=== PATIENT | male | born 1945 | race Caucasian/White ===

== ENCOUNTER 2018-10-23 15:51 | Inpatient (IN) | payer MEDICARE, OTHER, SELFPAY ==
[2018-10-23] VITALS (15 sets, daily range): BP systolic 100–118; BP diastolic 42–57; PULSE 60–79; RESP 17–22; TEMP 36.6–37.2; O2SAT 6–99; BMI 33.4
--- NOTE | 2018-10-23 16:17 | ECHOD_ITS ---
Reason For Study: NSTEMI Procedure This was a 2D Doppler, Color Flow transthoracic echocardiogram. Exam performed portable in patient room. Left Ventricle Mild concentric left ventricular hypertrophy. The estimated ejection fraction is 45-50 %. Stage 1 diastolic dysfunction. Infero-Basal: Mildly hypokinetic. Posterior-Basal: Mildly hypokinetic. Right Ventricle Normal size and thickness. ICD or pacer leads identified within the right ventricle. Normal systolic function. Atria Normal left atrium. Normal right atrium. Normal atrial septum. Mitral Valve The mitral valve is structurally normal. No prolapse or stenosis seen. Tricuspid Valve Normal tricuspid valve. Trivial tricuspid valve insufficiency. Right ventricular systolic pressure estimated to be 35 mmHg. Aortic Valve Trisinus/trileaflet aortic valve. Fusion of the right and left coronary cusps. Moderate diffuse aortic valve thickening. Moderate restriction of the aortic valve. Moderate aortic stenosis. Peak aortic valve gradient 40 mmHg. Mean aortic valve gradient 20 mmHg. Calculated aortic valve area (continuity equation) is 1.1 cm2. Trivial aortic valve insufficiency. Pulmonic Valve Normal pulmonic valve. Great Vessels Calcified aortic root. Normal arch. Normal inferior vena cava. Inferior vena cava collapse with sniff. Pericardium/Pleural No pericardial effusion. MMode/2D Measurements & Calculations LVIDd: 5.2 cm IVSd: 1.6 cm LVOT diam: 2.1 cm LVIDs: 4.1 cm LVPWd: 1.3 cm LVOT area: 3.3 cm2 FS: 20.5 % Ao root diam: 3.6 cm LAV(MOD-bp): 54.3 ml Aortic Valve Planimetry: 1.2 cm2 LAV(MOD-bp) Indexed: 25.0 ml/m2 LAV(MOD-sp2): 54.9 ml LAV(MOD-sp4): 53.1 ml LA A4 area: 18.5 cm2 Time Measurements MV dec time: 0.14 sec Doppler Measurements & Calculations MV E max flaquito: 95.4 cm/sec Lat Peak E' Flaquito: 9.7 cm/sec Med Peak E' Flaquito: 8.3 cm/sec MV A max flaquito: 100.2 cm/sec E/E' lat: 9.8 E/E' med: 11.5 MV E/A: 0.95 MV V2 max: 115.6 cm/sec MV P1/2t max flaquito: 97.3 cm/sec Ao V2 max: 314.9 cm/sec MV max P.3 mmHg MV P1/2t: 83.4 msec Ao max P.7 mmHg MV V2 mean: 64.6 cm/sec MV dec slope: 341.6 cm/sec2 Ao V2 mean: 208.2 cm/sec MV mean P.9 mmHg Ao mean P.3 mmHg MV V2 VTI: 29.6 cm MVA(P1/2t): 2.6 cm2 Ao V2 VTI: 69.1 cm MVA(VTI): 2.5 cm2 LULA(I,D): 1.1 cm2 LULA(V,D): 0.93 cm2 LV V1 max: 87.5 cm/sec SV(LVOT): 73.1 ml PA V2 max: 95.3 cm/sec LV V1 max P.1 mmHg LV V1 mean P.5 mmHg LV V1 mean: 55.5 cm/sec LV V1 VTI: 22.0 cm TR max flaquito: 273.0 cm/sec TR max P.8 mmHg Interpretation Summary Mild concentric left ventricular hypertrophy. The estimated ejection fraction is 45-50 %. Stage 1 diastolic dysfunction. Infero-Basal: Mildly hypokinetic Posterior-Basal: Mildly hypokinetic Trivial tricuspid valve insufficiency. Right ventricular systolic pressure estimated to be 35 mmHg. Fusion of the right and left coronary cusps Moderate to severe aortic stenosis, but may be underestimated due to reduced LV function. Calculated aortic valve area (continuity equation) is 1.1 cm2. Trivial aortic valve insufficiency. There is no comparison study available. Ordering Physician: Magno Sheppard Referring Physician: Terri Ponce Performed By: Diego Vilchis RCS
--- NOTE | 2018-10-23 16:27 | HP.PCM_ITS ---
Problem List (1) Acute respiratory failure with hypoxia Status: Acute (2) COPD exacerbation Status: Acute (3) Pneumonia, pneumococcal Status: Acute Qualifiers: Laterality: right Lung location: lower lobe of lung Qualified Code(s): J13 - Pneumonia due to Streptococcus pneumoniae (4) NSTEMI (non-ST elevated myocardial infarction) Status: Acute History of Present Illness Date of Admission: 10/23/18 Chief Complaint: shortness of breath The patient is a 73 year old M who has a history of chronic shortness of breath but became acutely more short of breath over the past few days. Presented to an outside emergency room and was diagnosed with pneumonia and sent home with antibiotics but was advised to be admitted. Patient declined stating he had things to do at home. Present today just worsening shortness of breath with pulse ox in the 70s. Patient was found to have an elevated troponin of 2.2. Patient had a CT angiogram of the chest that showed a right lower lobe infiltrate and he received ceftriaxone for that. Additionally, patient received aspirin, clopidogrel and a heparin drip in addition to aerosols. Patient was put on nonrebreather and BiPAP was attempted however the patient did not tolerate the BiPAP so patient was transferred to [facility] on nonrebreather. Patient supplement transitioned over to nasal cannula is tolerating that well. Patient denies any chest pain. [] Past Medical History Medical History: Medical History (Last Updated 10/23/18 @ 16:32 by Magno Sheppard DO) CAD (coronary artery disease) I25.10 DM2 (diabetes mellitus, type 2) E11.9 CKD (chronic kidney disease) stage 3, GFR 30-59 ml/min N18.3 COPD (chronic obstructive pulmonary disease) J44.9 Chronic respiratory failure J96.10 Allergies No Known Allergies Allergy (Verified 10/21/15 19:24) Home Medications: Ambulatory Orders Medication Instructions Recorded Albuterol Inhaler [Ventolin Hfa 2 puff INHALATION Q4H PRN PRN 06/05/16 (SP)] Aspirin [Lo-Dose Aspirin EC] 81 mg PO 06/05/16 Budesonide Inhaler 180 mcg 2 puff INHALATION BID 06/05/16 [Pulmicort Inhaler 180 mcg] Budesonide/Formoterol 160/4.5 2 puff INHALATION BID 06/05/16 [Symbicort 160/4.5 Mcg Inhaler (SP)] Cholecalciferol (VIT D3) [Vitamin 1,000 unit PO DAILY 06/05/16 D] Clopidogrel Bisulfate [Plavix] 75 mg PO DAILY 06/05/16 Fluticasone Prop 100 mcg [Flovent 1 puff INHALATION BID 06/05/16 Diskus 100 Mcg] Hydrochlorothiazide 25 mg PO 06/05/16 Insulin Aspart [Novolog] 12 unit SQ 06/05/16 Insulin Glargine [Lantus (BKC)] 68 units SC QHS 06/05/16 Lisinopril [Zestril] 5 mg PO 06/05/16 Magnesium Oxide 420 mg PO 06/05/16 Metoprolol Tartrate [Lopressor 25 mg PO BID 06/05/16 (Beta Suzanne)] Montelukast [Singulair] 10 mg PO DAILY 06/05/16 Rosuvastatin Calcium [Crestor] 40 mg PO QHS 06/05/16 Sodium Chloride 0.65% [[place] Nasal 06/05/16 [place]] Tiotropium [place] [Spiriva] 18 mcg IH 06/05/16 Surgical History: Surgical History (Last Updated 10/23/18 @ 16:33 by Magno Sheppard DO) Hx of cholecystectomy Z90.49 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 Denies: Anorexia, Fever, Night Sweats Eyes: Denies: Blurred vision, Double vision HEENT: Denies: Head Aches, Sinus Congestion, Sinus Drainage Cardiovascular: Denies: Chest Pain, Edema, Palpitations Respiratory: Reports: Cough, Shortness of Breath, Sputum production Gastrointestinal: Denies: Abdominal Pain, Nausea, Vomiting Genitourinary: Denies: Dysuria Musculoskeletal: Denies: Joint Pain, Joint Tenderness Skin: Denies: Rash, Wounds Neurological: Denies: Numbness, Tingling, Focal weakness Psychiatric: Denies: Anxiety, Depression Endocrine: Denies: Change in Body Habitus, Heat/ Cold Intolerance Hematologic/ Lymphatic: Denies: Easy Bruising, Easy Bleeding, Hx of blood clot Comment: A 10 point review of systems were negative except as mentioned in the history of present illness and the other review of systems. VTE Information - Inpt Only VTE Present on Admission: No VTE Mechan Device Prophylaxis: None VTE Pharm Prophylaxis ordered?: No Patient Problems: Active and Suspected Problems Acute respiratory failure with hypoxia (Acute) COPD exacerbation (Acute) Pneumonia, pneumococcal (Acute) NSTEMI (non-ST elevated myocardial infarction) (Acute) - Physical Exam General: Alert, Cooperative, No apparent distress, - - Respiratory distress. No conversational dyspnea. HEENT: Atraumatic, Normocephalic, - - no icterus Oral: No Gingival or Mucosal Lesions/ Ulcerations, Dry Mucosa Neck: No JVD, No Nodes, Thyroid Normal Size and Texture Lungs: Diminished, Wheezes - faint bilaterally Cardiovascular: Regular rate, Regular Rhythm, Normal S1, Normal S2, No murmurs Abdomen: Bowel Sounds Present, Soft, Non Tender, Non-Distended, Obese Extremities: No edema, No Calf Tenderness Skin: No rashes, No breakdown Musculoskeletal: No Tenderness to Palpation of Joints or Extremities, No Muscle Wasting Neurological: Muscle tone normal, - - no clonus Psych/Mental Status: Normal Affect, Appropriate Vital Signs Pulse 64 10/23/18 16:00 Weight: 102.6 kg Body Mass Index (BMI) 33.4 CBC: White count 10.2, hemoglobin 17.4, platelets 206 BMP: Sodium 135, potassium 4.7, creatinine 1.7 Lactic acid 20.8, range at outside hospital is 4.5-18 BNP is 349 Troponin of 2.26 EKG reviewed and showed normal sinus rhythm but no acute changes. Baseline artifact in the chest leads. CT chest for PE protocol: Showed right lower lobe and right middle lobe consolidations and left lung base infiltrates consistent with multifocal pneumonia Assessment/Plan All Active Problems Acute respiratory failure with hypoxia (Acute) COPD exacerbation (Acute) Pneumonia, pneumococcal (Acute) NSTEMI (non-ST elevated myocardial infarction) (Acute) 1. Acute hypoxic respiratory failure * Improved at this time though was present at the outside hospital * Secondary to acute exacerbation of COPD plus suspected pneumococcal pneumonia * Oxygen has been weaned down to nasal cannula and patient is tolerating that well. Patient does have a baseline oxygen 2 L/min 2. Acute exacerbation of COPD * Continue with bronchodilators as well as patient will be initiated on methylprednisolone 40 mg every 8 hours * Anticipate transition over to oral prednisone in the next 24 to 48 hours * Pulmonary on consultation 3. Suspected pneumococcal pneumonia * Patient received ceftriaxone at the outside hospital. We will continue ceftriaxone but also add azithromycin * Check urinary antigens for Streptococcus and Legionella. Check sputum culture * Pulmonary toilet 4. Non-ST elevation myocardial infarction * May be a type II event related with demand from his hypoxia * continue with aspirin and clopidogrel which patient did receive at the outside hospital\ * Continue with heparin drip as he was also initiated at the outside hospital * Check an echocardiogram * Continue to cycle troponins * Discussed with Dr. Ruiz: He will plan to see the patient on the . Possible left heart catheterization on the 5. Chronic kidney disease stage III * Suspected as we do not have any baseline labs to compare to. * Creatinine was 1.7 * I am good hold off on his HCTZ and lisinopril for now * I will give him a liter of IV fluids and reevaluate his labs in the morning 6. Diabetes mellitus type II * Continue with his basal and prandial insulin plus sliding scale * Check an A1c 7. VTE prophylaxis: Low risk as patient is already anticoagulated. 8. Advanced care planning: Confirmed the patient's if he want CPR intubation in the event of cardiopulmonary arrest. Patient states that he would want CPR and intubated, only short-term. Therefore, patient is full CODE STATUS. Code Visit Inpatient E&M: 89710 Init Hosp L3
--- NOTE | 2018-10-23 16:57 | NURSING ---
1650 report called to Brandee KIMBROUGH RN
[2018-10-23 17:01] LABS: Bedside Glucose 118 mg/dL (70-110)
[2018-10-23] MEDS: 0.9% Normal Saline 1,000 ML 150 ML IV (17:25)
[2018-10-23] MEDS: 0.9% NaCl Peripheral Flush Adult/Peds IV (18:03)
[2018-10-23] MEDS: Ceftriaxone 1 GM/50 ML BAG IV (18:40)
[2018-10-23] MEDS: Ipratropium/Albuterol Sulfate 3 ML AMPUL.NEB INHALATION ×2 (18:59→22:53)
[2018-10-23 19:00] LABS: International Normalized Ratio 1.1; Prothrombin Time (Protime)PT. 14.4 SECONDS (11.7-14.9)
[2018-10-23 19:01] LABS: Partial Thromboplast Time 35.6 Seconds (24.1-36.2)
[2018-10-23] MEDS: HEPARIN/D5w 25,000 UNITS 25,000 UNITS/250 ML IV.SOLN. 15 UNITS IV (19:40)
[2018-10-23] MEDS: Metoprolol Tartrate 25 MG Tablet PO (22:08)
[2018-10-23] MEDS: Atorvastatin Calcium 80 MG Tablet PO (22:08)
[2018-10-23 23:26] LABS: Bedside Glucose 215 mg/dL (70-110)
[2018-10-24] VITALS (16 sets, daily range): BP systolic 109–146; BP diastolic 45–74; PULSE 62–76; RESP 16–20; TEMP 36.4–37.3; O2SAT 92–96
[2018-10-24] MEDS: Ipratropium/Albuterol Sulfate 3 ML AMPUL.NEB INHALATION ×6 (02:19→23:04)
[2018-10-24 07:47] LABS: Absolute Neutrophil Count 14.3 X10^3/uL (2.0-7.7); Basophil# 0.03 X10^3/uL; Basophil% 0.2 % (0-1); Eosinophil# 0.14 X10^3/uL; Eosinophils% 0.9 % (0-5); Hematocrit 48.5 % (40-54); Hemoglobin 15.7 g/dL (13.0-16.5); Mean Corp Hgb Conc 32.4 g/dL (32-36); Mean Corpuscular Hgb 31.2 pg (27.0-32.0); Mean Corpuscular Volume 96.2 fL (80-94); Mean Platelet Vol. 9.2 fl (6.2-12.0); Monocyte# 0.52 X10^3/uL; Monocyte% 3.3 % (0-10); NRBC Flagged by Analyzer 0 % (0-5); Neutrophil # 14.31 X10^3/uL (2.7-7.7); Neutrophil % 89.8 % (47-70); POSITIVE MORPHOLOGY YES; Platelet Count 165 K/mm3 (150-450); RBC Distribution Width SD 49.3 fl (35.1-43.9); Red Blood Count 5.04 M/mm3 (4.6-6.2); White Blood Count 15.9 K/mm3 (4.4-11.0)
[2018-10-24 07:51] LABS: Differential Indicated SCAN CRITERIA MET
[2018-10-24 08:12] LABS: Anion Gap 4 (5-15); BUN 43 mg/dL (7-18); BUN/Creat Ratio 24.4 RATIO (10-20); Calcium,Total 7.8 mg/dL (8.5-10.1); Chloride 103 mmol/L (98-107); Creatinine, Serum 1.76 mg/dL (0.70-1.30); EST Glomerular Filtration Rate 40 mL/min (>60); Est Glom Filt Rate - Afr Amer 49 mL/min (>60); Estimated Creatinine Clearance 36.82 ml/min; Glucose 294 mg/dL (74-106); Potassium 5.3 mmol/L (3.5-5.1); Sodium Level 135 mmol/L (136-145)
--- NOTE | 2018-10-24 08:12 | CPS ---
PT DECREASED TO 4 LPM...90-91%. NURSE AWARE OF CHANGE
--- NOTE | 2018-10-24 08:13 | EKG12_ITS ---
Test Reason : POST PCI Blood Pressure : / mmHG Vent. Rate : 063 BPM Atrial Rate : 063 BPM P-R Int : 112 ms QRS Dur : 096 ms QT Int : 396 ms P-R-T Axes : 081 039 051 degrees QTc Int : 405 ms Normal sinus rhythm Normal ECG When compared with ECG of 24-OCT-2018 08:25, MANUAL COMPARISON REQUIRED, DATA IS UNCONFIRMED Confirmed by NOHEMI GUTIERRES, MARBIN ([id number]), editor city [place] ([id number]) on 11/06/2018 2:29:29 PM Referred By: Terri Ponce Confirmed By:MARBIN SONG MD
[2018-10-24 08:23] LABS: Hemoglobin A1c 7.2 % (4.2-6.3)
[2018-10-24 08:24] LABS: Differential Comment SCANNED
[2018-10-24] MEDS: Insulin Lispro 100 UNIT/ML INSULN.PEN 12 UNIT SC ×3 (08:32→17:14)
[2018-10-24 08:33] LABS: Partial Thromboplast Time 66.2 Seconds (24.1-36.2)
[2018-10-24] MEDS: Insulin Lispro 100 UNIT/ML INSULN.PEN SC ×3 (08:33→17:15)
[2018-10-24] MEDS: Aspirin E.C. 81 MG Tablet PO (08:34)
--- NOTE | 2018-10-24 08:36 | CON.PCM_ITS ---
Problem List (1) Congestive heart failure Status: Suspected Qualifiers: Heart failure type: combined systolic and diastolic Heart failure chronicity: acute on chronic Qualified Code(s): I50.43 - Acute on chronic combined systolic (congestive) and diastolic (congestive) heart failure (2) Acute respiratory failure with hypoxia Status: Acute (3) COPD exacerbation Status: Acute (4) NSTEMI (non-ST elevated myocardial infarction) Status: Acute Reason for Consult Date of Consultation: 10/24/18 Reason for Consultation: Hypoxic respiratory failure History of Present Illness: The patient is a 73 year old M, with past medical history listed below, who presented [facility] as a direct transfer from an outside facility secondary to hypoxic respiratory failure. Patient reports that he had had worsening shortness of breath over the last week, but on the day of presentation I thought I was going to . On presentation to outside facility, patient was noted to have saturations in the 70s and elevated troponin at 2.2. Patient did have a CT angio showing a right lower lobe infiltrate and patient was given ceftriaxone. Patient was also initiated on a heparin drip, Plavix and aspirin. Patient was placed on BiPAP therapy, but was unable to tolerate, so was transferred here on a nonrebreather. Patient reports significant improvement compared to yesterday. Patient reports that he has noted some lower extremity edema over the last week. Patient also reports a cough productive of frothy white to pink sputum over the last 24 to 48 hours. Patient states that has improved since she is been admitted. Patient denies any current chest pain. Patient has not had any palpitations and does not think I was shocked. Patient does have an extensive cardiac history [facility] Patient has had a CABG in the past along with a pacemaker defibrillator. Patient reports he supposed to be on 2 L nasal cannula at all times, but typically only uses it with sleep. Patient does report an extensive smoking history, but quit sometime ago. Patient is never had a pulmonary function test or walking oximetry that he is aware of. Patient is unable to describe his current respiratory medication routine. Past Medical History Medical History: Medical History (Last Updated 10/23/18 @ 16:32 by Magno Sheppard DO) CAD (coronary artery disease) I25.10 DM2 (diabetes mellitus, type 2) E11.9 CKD (chronic kidney disease) stage 3, GFR 30-59 ml/min N18.3 COPD (chronic obstructive pulmonary disease) J44.9 Chronic respiratory failure J96.10 Allergies No Known Allergies Allergy (Verified 10/21/15 19:24) Home Medications: Ambulatory Orders Medication Instructions Recorded Albuterol Inhaler [Ventolin Hfa 2 puff INHALATION Q4H PRN PRN 06/05/16 (SP)] Aspirin [Lo-Dose Aspirin EC] 81 mg PO DAILY 06/05/16 Budesonide Inhaler 180 mcg 2 puff INHALATION BID 06/05/16 [Pulmicort Inhaler 180 mcg] Cholecalciferol (VIT D3) [Vitamin 1,000 unit PO DAILY 06/05/16 D] Insulin Aspart [Novolog] See Protocol SQ ACHS 06/05/16 Insulin Glargine [Lantus (BKC)] 30 units SC QHS 06/05/16 Lisinopril [Zestril] 5 mg PO DAILY 06/05/16 Magnesium Oxide 420 mg PO 06/05/16 Metoprolol Tartrate [Lopressor 25 mg PO BID 06/05/16 (Beta Suzanne)] Montelukast [Singulair] 10 mg PO QHS 06/05/16 Rosuvastatin Calcium [Crestor] 40 mg PO QHS 06/05/16 Sodium Chloride 0.65% [[place] Nasal 2 sprays NARES 4X/DAY PRN PRN 06/05/16 [place]] Surgical History: Surgical History (Last Updated 10/23/18 @ 16:33 by Magno Sheppard DO) Hx of cholecystectomy Z90.49 S/P CABG x 5 Z95.1 1999 at the [place] Psychiatric History: No pertinent psych hx Lives: Spouse/ Significant Other Smoking Status: Former smoker - quit 12 years ago Tobacco Use: Non-smoker Alcohol: None Drugs: None - *Family History Maternal Family History: Family History (Last Updated 10/23/18 @ 16:33 by Magno Sheppard DO) Other COPD (chronic obstructive pulmonary disease) Review of Systems Constitutional: Reports: Weakness. Denies: Anorexia, Fever, Night Sweats Eyes: Denies: Blurred vision, Cataracts, Double vision, Drainage, Redness HEENT: Denies: Difficulty Hearing, Ear Pain, Nasal bleeding, Nasal Congestion, Post Nasal Drip Cardiovascular: Reports: Chest Tightness, Edema, Orthopnea. Denies: Light Headedness Respiratory: Reports: Cough, Shortness of breath at rest, - - [place]o frothy secretions with coughing. Denies: Hemoptysis, Pleuritic Pain Gastrointestinal: Denies: Abdominal Pain, Constipation, Diarrhea Genitourinary: Denies: Dysuria, Frequency, Hematuria Musculoskeletal: Denies: Joint stiffness, Joint swelling, Joint Tenderness Skin: Denies: Rash, Wounds Neurological: Denies: Confusion, Focal weakness, Numbness, Tingling Psychiatric: Denies: Anxiety, Depression Endocrine: Denies: Change in Body Habitus, Polydipsia Hematologic/ Lymphatic: Denies: Adenopathy, Easy Bruising Patient Problems: Active and Suspected Problems (Last Updated 10/23/18 @ 16:32 by Magno Sheppard DO) Acute respiratory failure with hypoxia (Acute) COPD exacerbation (Acute) Pneumonia, pneumococcal (Acute) NSTEMI (non-ST elevated myocardial infarction) (Acute) Congestive heart failure (Suspected) - Physical Exam General: Alert, Oriented x3, Cooperative, - - Mild conversational dyspnea. Obese. HEENT: Atraumatic, PERRLA, EOMI, Normocephalic, - - No scleral icterus or injection Oral: Moist Mucosa, No Gingival or Mucosal Lesions/ Ulcerations Neck: Supple, No Nodes, Trachea Midline, JVD, Right Lungs: No rhonchi, No wheeze, Diminished, Rales - Left base Cardiovascular: Regular rate, Regular Rhythm, Normal S1, Normal S2, No murmurs, No rub noted, No Gallop, - - Paced rhythm on telemetry Abdomen: Bowel Sounds Present, Soft, Non Tender, Non-Distended Extremities: No clubbing, No cyanosis, Edema - Trace lower extremity Skin: No rashes, No breakdown Musculoskeletal: No Tenderness to Palpation of Joints or Extremities Lymphatic: No Cervical, Supraclavicular, or Inguinal Adenopathy Neurological: Cranial nerves II-XII grossly intact, Neuro grossly intact, Motor Exam 5/5 strength throughout Psych/Mental Status: Alert and oriented to time, place, person, mood and affect Vital Signs Temp Pulse Resp BP Pulse Ox 37.2 C 67 16 125/62 H 93 10/24/18 05:00 10/24/18 07:14 10/24/18 07:14 10/24/18 05:00 10/24/18 07:14 Oxygen Flow Rate (L/min) 6 Oxygen Delivery Method Nasal Cannula Weight: 105.432 kg Body Mass Index (BMI) 33.4 Intake and Output for Last 24 Hours 10/22/18 10/23/18 10/24/18 23:59 23:59 23:59 Intake Total 1674.5 / 1674.5 362.5 / 362.5 Output Total 400 / 400 350 / 350 Balance 1274.5 / 1274.5 12.5 / 12.5 Microbiology Past 72 Hours 10/23/18 16:05 Streptococcus pneumoniae Antigen (M - Final Urine, Clean Catch 10/23/18 16:05 Legionella Antigen - Final Urine, Clean Catch Laboratory Tests Past 24 Hrs 10/23/18 10/23/18 10/23/18 17:52 18:40 20:25 WBC RBC Hgb Hct MCV MCH MCHC RDW Std Deviation RDW Coeff of Momo Plt Count MPV Immature Gran % (Auto) Neut % (Auto) Lymph % (Auto) [place] % (Auto) Eos % (Auto) Baso % (Auto) Absolute Neuts (auto) Absolute Lymphs (auto) Nucleated RBC % Differential Comment PT 14.4 INR 1.1 APTT 35.6 Sodium Potassium Chloride Carbon Dioxide Anion Gap BUN Creatinine Estim Creat Clear Calc Est GFR (MDRD) Af Amer Est GFR (MDRD) Non-Af BUN/Creatinine Ratio Glucose Hemoglobin A1c Calcium Troponin I 2.400 H* 1.960 H* 10/24/18 10/24/18 10/24/18 01:37 07:40 07:40 WBC 15.9 H RBC 5.04 Hgb 15.7 Hct 48.5 MCV 96.2 H MCH 31.2 MCHC 32.4 RDW Std Deviation 49.3 H RDW Coeff of Momo 14.0 Plt Count 165 MPV 9.2 Immature Gran % (Auto) 0.800 Neut % (Auto) 89.8 H Lymph % (Auto) 5.0 L [place] % (Auto) 3.3 Eos % (Auto) 0.9 Baso % (Auto) 0.2 Absolute Neuts (auto) 14.3 H Absolute Lymphs (auto) 0.80 L Nucleated RBC % 0 Differential Comment SCANNED PT INR APTT 58.0 H Sodium 135 L Potassium 5.3 H Chloride 103 Carbon Dioxide 28.0 Anion Gap 4 L BUN 43 H Creatinine 1.76 H Estim Creat Clear Calc 36.82 Est GFR (MDRD) Af Amer 49 L Est GFR (MDRD) Non-Af 40 L BUN/Creatinine Ratio 24.4 H Glucose 294 H Hemoglobin A1c Calcium 7.8 L Troponin I 10/24/18 10/24/18 07:40 07:40 WBC RBC Hgb Hct MCV MCH MCHC RDW Std Deviation RDW Coeff of Momo Plt Count MPV Immature Gran % (Auto) Neut % (Auto) Lymph % (Auto) [place] % (Auto) Eos % (Auto) Baso % (Auto) Absolute Neuts (auto) Absolute Lymphs (auto) Nucleated RBC % Differential Comment PT INR APTT Pending Sodium Potassium Chloride Carbon Dioxide Anion Gap BUN Creatinine Estim Creat Clear Calc Est GFR (MDRD) Af Amer Est GFR (MDRD) Non-Af BUN/Creatinine Ratio Glucose Hemoglobin A1c 7.2 H Calcium Troponin I POC Glucose 10/23/18 10/23/18 22:06 16:53 POC Glucose 215 H 118 H Assessment/Plan All Active Problems (Last Updated 10/23/18 @ 16:32 by Magno Sheppard DO) Acute respiratory failure with hypoxia (Acute) COPD exacerbation (Acute) Pneumonia, pneumococcal (Acute) NSTEMI (non-ST elevated myocardial infarction) (Acute) RECOMMENDATIONS: 1. Continue antibiotics, bronchodilators and steroid therapy 2. Consider gentle diuresis 3. Wean oxygen as tolerated 4. Await cardiology recommendations 5. Aggressive pulmonary toileting IMPRESSIONS: 1. Acute on chronic hypoxic respiratory failure Unclear etiology. Patient may have a component of cor pulmonale/CHF s econdary to noncompliance with supplemental oxygen at baseline. Patient does have an extensive smoking history in the right lower lobe infiltrate suggestive of an acute exacerbation of COPD secondary to community-acquired pneumonia. Patient does have an elevated leukocytosis at this time, but this may be secondary to demargination with steroid use. Unclear on patient's home medications. Patient appears to be on multiple inhaled corticosteroids of unclear intention. Patient is reporting some pink frothy sputum, which may be secondary to the CHF. Patient may benefit from a gentle diuresis. Agree with empiric antibiotics at this time. Patient will need to complete pulmonary function test and walking oximetry as an outpatient. 2. Non-ST elevation myocardial infarction Clinical suspicion for troponin secondary to prolonged hypoxemia more than an acute event. However, patient does have an extensive cardiac history and may have developed restenosis. Patient is currently on a heparin drip. Echocardiogram has been ordered. Troponins continue to improve. Cardiology to see the patient. 3. CKD stage III/diabetes mellitus type 2/obesity/advanced age Complicates care, management, recovery and prognosis. Will need to watch blood sugars closely given concomitant steroid therapy. Patient may benefit from evaluation of obstructive sleep apnea as an outpatient. Poor information on baseline creatinine at this time. Will attempt to clarify. Agree with holding KAREN inhibitor and hydrochlorothiazide acutely. Code Visit Inpatient E&M: 03056 Init Hosp L3
[2018-10-24 09:16] LABS: Bedside Glucose 304 mg/dL (70-110)
[2018-10-24] MEDS: Ceftriaxone 1 GM/50 ML BAG IV (10:30)
[2018-10-24] MEDS: Montelukast 10 MG Tablet PO (10:33)
[2018-10-24] MEDS: Clopidogrel Bisulfate 75 MG Tablet PO (10:34)
[2018-10-24] MEDS: Metoprolol Tartrate 25 MG Tablet PO ×2 (10:34→23:05)
[2018-10-24] MEDS: Magnesium Oxide 400 MG Tablet PO (10:36)
--- NOTE | 2018-10-24 10:44 | PCM.CONS.C ---
Problem List (1) NSTEMI (non-ST elevated myocardial infarction) Status: Acute (2) Congestive heart failure Status: Suspected Qualifiers: Heart failure type: combined systolic and diastolic Heart failure chronicity: acute on chronic Qualified Code(s): I50.43 - Acute on chronic combined systolic (congestive) and diastolic (congestive) heart failure Reason for Consult Date of Consultation: 10/24/18 History of Present Illness: The patient is a 73 year old M, former [place], with a history of hypertension, diabetes, hyperlipidemia, COPD on chronic O2 therapy at night, periodic inhalers, no pulmonary physician locally. In addition he has a history of tobacco abuse of approximately 2 packs/day for 20 years and quit around 14 years ago. Patient is also status post three-vessel [place] [facility] [place], with subsequent catheterizations and stents over the last 5 years, the specifics of which are difficult to interpret. He reports that he had stents in [place] and may be another catheterization after that but nothing here at [facility]. In addition the patient has ischemic cardiomyopathy status post defibrillator/AICD since 1998. Patient recently developed shortness of breath, dyspnea on exertion, productive cough and fevers and chills over the last several days. He sought medical attention at [facility], and was referred for admission however he declined and was sent home from the ER. One day later he returned to pulmonary and ER with worsening shortness of breath, fevers and substernal chest pain. He describes the pain as a pressure, midsternal, nonradiating. Patient was loaded with Plavix 3 mg x 1 followed by 75 mg a day, baby aspirin, and started on IV heparin drip. His EKG upon arrival to pulmonary and hospital showed normal sinus rhythm with a PAC, and old inferior wall myocardial infarction. No acute changes noted. His initial troponin at [facility] was 1.78 increased to 2.04. Patient was then transferred per his request to [facility] where he is remained asymptomatic. He received IV azithromycin and IV ceftriaxone and is feeling much better. Echocardiogram today demonstrated evidence of old inferior posterior wall myocardial infarction with an EF around 45% to 50%,, stage I diastolic dysfunction, and RVSP of approximately 35 mmHg. His troponins have decreased from 2.4 down to 1.9. [] Past Medical History Allergies/Adverse Reactions: Allergies No Known Allergies Allergy (Verified 10/21/15 19:24) Home Medications: Ambulatory Orders Medication Instructions Recorded Albuterol Inhaler [Ventolin Hfa 2 puff INHALATION Q4H PRN PRN 06/05/16 (SP)] Aspirin [Lo-Dose Aspirin EC] 81 mg PO DAILY 06/05/16 Budesonide Inhaler 180 mcg 2 puff INHALATION BID 06/05/16 [Pulmicort Inhaler 180 mcg] Cholecalciferol (VIT D3) [Vitamin 1,000 unit PO DAILY 06/05/16 D] Insulin Aspart [Novolog] See Protocol SQ ACHS 06/05/16 Insulin Glargine [Lantus (BKC)] 30 units SC QHS 06/05/16 Lisinopril [Zestril] 5 mg PO DAILY 06/05/16 Magnesium Oxide 420 mg PO 06/05/16 Metoprolol Tartrate [Lopressor 25 mg PO BID 06/05/16 (Beta Suzanne)] Montelukast [Singulair] 10 mg PO QHS 06/05/16 Rosuvastatin Calcium [Crestor] 40 mg PO QHS 06/05/16 Sodium Chloride 0.65% [[place] Nasal 2 sprays NARES 4X/DAY PRN PRN 06/05/16 [place]] Psychiatric History: No pertinent psych hx - *Family History Maternal Family History: Family History (Last Updated 10/23/18 @ 16:33 by Magno Sheppard DO) Other COPD (chronic obstructive pulmonary disease) Lives: Spouse/ Significant Other Smoking Status: Former smoker - quit 12 years ago Tobacco Use: Non-smoker Alcohol: None Drugs: None Review of Systems - Review of Systems General: Denies: Fever, Night Sweats, Fatigue Cardiovascular: Reports: Chest Discomfort, Chest Discomfort at Rest, Chest Pressure, Shortness of Breath at Rest. Denies: Shortness of Breath, Orthopnea, PND, Peripheral Edema, Palpitations, Lightheadedness, Dizziness, Near Syncope, Syncope Respiratory: Denies: Cough, Sputum Production, Hemoptysis Gastrointestinal: Denies: Hematemesis, Hematochezia, Melena Genitourinary: Denies: Dysuria, Hematuria Skin: Denies: Rash Subjectve: Patient sitting in a chair, no acute distress. Objective: Vital Signs Temp Pulse Resp BP Pulse Ox 97.8 F 74 18 135/65 H 95 10/24/18 10:28 10/24/18 10:34 10/24/18 10:28 10/24/18 10:28 10/24/18 10:28 Oxygen Flow Rate (L/min) 4 Oxygen Delivery Method Nasal Cannula Weight: 232 lb 7 oz Body Mass Index (BMI) 33.4 Intake and Output for Last 24 Hours 10/22/18 10/23/18 10/24/18 23:59 23:59 23:59 Intake Total 1674.5 / 1674.5 494.25 / 494.25 Output Total 400 / 400 350 / 350 Balance 1274.5 / 1274.5 144.25 / 144.25 General: Awake, Alert, Oriented x 3 HEENT: PERRL, EOMI, Sclera Non Icteric Neck: Supple, Good ROM, No Lymph Node Enlargement Lungs: Rales - Santiago Bases Cardiovascular: Regular Rhythm, Normal S1, Normal S2, No Murmurs, No Rubs, No Gallops Vascular: No Carotid Bruits, Normal Femoral Pulses, Normal Radial Pulses, Normal Dorsalis Pedal Pulse, Normal Posterior Tibial Pulses Abdomen: Bowel Sounds Present, Soft, Non Tender, No HSM, No Organomegaly Extremities: No Cyanosis, No Clubbing, No edema Neurological: No Focal Motor or Sensory Deficit 10/23/18 17:52: Troponin I 2.400 H* 10/23/18 18:40: PT 14.4, INR 1.1, APTT 35.6 10/23/18 20:25: Troponin I 1.960 H* 10/24/18 01:37: APTT 58.0 H 10/24/18 07:40: WBC 15.9 H, RBC 5.04, Hgb 15.7, Hct 48.5, MCV 96.2 H, MCH 31.2, MCHC 32.4, Plt Count 165, MPV 9.2, Immature Gran % (Auto) 0.800, Neut % (Auto) 89.8 H, Lymph % (Auto) 5.0 L, Moca % (Auto) 3.3, Eos % (Auto) 0.9, Baso % (Auto) 0.2, Absolute Neuts (auto) 14.3 H, Nucleated RBC % 0 10/24/18 07:40: Sodium 135 L, Potassium 5.3 H, Chloride 103, Carbon Dioxide 28.0, Anion Gap 4 L, BUN 43 H, Creatinine 1.76 H, Est GFR (MDRD) Af Amer 49 L, Est GFR (MDRD) Non-Af 40 L, BUN/Creatinine Ratio 24.4 H, Glucose 294 H, Calcium 7.8 L 10/24/18 07:40: Hemoglobin A1c 7.2 H 10/24/18 07:40: APTT 66.2 H Rhythm: EKG: As above ECHO: As above Stress Test: Cardiac Cath: Pending PCI: CT Surgery: Holter monitor: EPS: PPM: CXR: Chest CT Scan: Assessment/Plan 1. Coronary artery disease: The patient is status post three-vessel bypass surgery at [facility] [place] [place], with subsequent catheterizations both at [facility] as well as [facility]. He reportedly has had stents placed in the [facility] with subsequent catheterizations at [facility]. I recommend the patient continue baby aspirin, Plavix 75 mg a day, and IV heparin given his chronic renal insufficiency. If he has no further chest pain or pressure overnight, we can discontinue his heparin drip tomorrow. In addition I recommend we obtain the old records from [facility] with respect to his previous bypass surgery, previous stenting if any, and possible records from [place]. I recommended the patient undergo a repeat left her catheterization and graft angiography once his pulmonary situation has stabilized. He appears to have guarded a significant benefit from IV antibiotic therapy. Pulmonary consultation obtained and appreciated. In addition I recommend he continue his metoprolol and lisinopril for antihypertensive control. 2. Hyperlipidemia: Recommend obtaining a fasting lipid profile. Continue Crestor. 3. Thank you very much for the opportunity to participate in the cardiac care of your patient. Consultation time took place between 9 AM and 9:30 AM. Code Visit Inpatient E&M: 90156 Init Hosp L2
[2018-10-24 11:26] LABS: Bedside Glucose 404 mg/dL (70-110)
[2018-10-24] MEDS: HEPARIN/D5w 25,000 UNITS 25,000 UNITS/250 ML IV.SOLN. 15 UNITS IV (12:04)
[2018-10-24 13:44] LABS: Partial Thromboplast Time 63.1 Seconds (24.1-36.2)
[2018-10-24] MEDS: 0.9% NaCl Peripheral Flush Adult/Peds IV ×3 (14:23→23:06)
[2018-10-24] MEDS: Sodium Chloride 0.65% 1 SPRAY SPRAY.BTL NASAL (14:45)
[2018-10-24 16:31] LABS: Bedside Glucose 330 mg/dL (70-110)
--- NOTE | 2018-10-24 17:04 | CM.UR ---
Addendum entered by Millie Penaloza 10/24/18 17:36: No documentation noted that [facility] however [facility] said [facility] called and there was no bed available--he preferred transfer to [facility]. Left vm on Madeline's ext as the 2 main extension were not getting a response. One --just on hold for a long time and 2nd just rang without answer. Faxed clinical to at this time. Marva Penaloza RN, CCM. Original Note: RN CM Assessment Met face to face with patient. Introduced role of RN CM to patient. Patient is alert and able to participate in RN CM Assessment. Sitting up in chair during assessment. Care providers, pharmacy, and demographics verified. Significant other and 2 friends at bedside. Presentation: sob with exertion. Admit Dx: Resp failure and elevated troponin. Direct admission from [facility]. PCP: Dr. Jones at [facility] Specialists: Cardiology at [facility] (Cathleen Santizo NP) [place] Pharmacy[place] and [facility]: [facility] --no copays LNOK: Emily Muñoz, Significant other. LW/HPOA: None. Booklet given. Instructed how can be done here or can be done at [facility] clinic. Living Arrangements: Lives with girlfriend in a 2 story home. Railing to second floor. 3 steps to get in. Denies accessibility issues. ADL?s: Independent. Transportation: Drives self. DME: o2 at night, bled into cpap. States some complaints about cpap. Instructed to contact [facility] regarding that. DME co: [place] HHC: None SNF: None Goal: Return home. DC PLAN: Return home. Alerting [facility] about some medical equipment needs. Agreeable to their Home based primary care for assessment of home environment. Faxed clinical w/request to [facility]. Marva Penaloza RN, CCM.
--- NOTE | 2018-10-24 17:51 | PN_ITS ---
Patient Problems: Active and Suspected Problems (Last Updated 10/23/18 @ 16:32 by Magno Sheppard DO) Acute respiratory failure with hypoxia (Acute) COPD exacerbation (Acute) Pneumonia, pneumococcal (Acute) NSTEMI (non-ST elevated myocardial infarction) (Acute) Congestive heart failure (Suspected) Subjective: Was seen and examined today, I talked briefly with cardiology about his care. Patient has a past history of coronary artery disease-he states he had a stress test within the last couple of years but he does not know exactly when, he states his stress test was negative. Patient was admitted yesterday for acute on chronic hypoxic respiratory failure and possible community-acquired pneumonia. He was also found to have a non-ST elevation AK. Patient is currently on nasal cannula oxygen, he has no complaints of any chest pain, fevers, or chills. - Physical Exam General: Alert, Oriented x3, Cooperative, No apparent distress, Well developed HEENT: Atraumatic, PERRLA, EOMI, Normocephalic Oral: Moist Mucosa Neck: Supple, Trachea Midline, Thyroid Normal Size and Texture Lungs: Clear to auscultation, No rhonchi, No wheeze, Diminished Cardiovascular: Regular rate, Regular Rhythm, Normal S1, Normal S2, No murmurs Abdomen: Bowel Sounds Present, Soft, Non Tender, Non-Distended Extremities: No clubbing, No cyanosis, Capillary Refill Less than 3 Seconds Skin: No rashes, No breakdown Musculoskeletal: No Tenderness to Palpation of Joints or Extremities Neurological: Cranial nerves II-XII grossly intact, Neuro grossly intact, Sensory exam intact to light touch and pain Psych/Mental Status: Normal Affect, Appropriate, Alert and oriented to time, place, person, mood and affect Vital Signs Temp Pulse Resp BP Pulse Ox 97.8 F 71 18 125/58 H 96 10/24/18 16:18 10/24/18 16:18 10/24/18 16:18 10/24/18 16:18 10/24/18 16:18 Oxygen Flow Rate (L/min) 3 Oxygen Delivery Method Nasal Cannula Weight: 105.432 kg Body Mass Index (BMI) 33.4 Intake and Output for Last 24 Hours 10/22/18 10/23/18 10/24/18 23:59 23:59 23:59 Intake Total 1674.5 / 1674.5 1463.50 / 1463.50 Output Total 400 / 400 350 / 350 Balance 1274.5 / 1274.5 1113.50 / 1113.50 Microbiology Past 72 Hours 10/23/18 19:50 Gram Stain - Final Sputum, Expectorated/Coughed Respiratory Culture - Preliminary Appears to be normal respiratory justina. Further studies to follow. 10/23/18 16:05 Streptococcus pneumoniae Antigen (M - Final Urine, Clean Catch 10/23/18 16:05 Legionella Antigen - Final Urine, Clean Catch Laboratory Tests Past 24 Hrs 10/23/18 10/23/18 10/23/18 17:52 18:40 20:25 WBC RBC Hgb Hct MCV MCH MCHC RDW Std Deviation RDW Coeff of Momo Plt Count MPV Immature Gran % (Auto) Neut % (Auto) Lymph % (Auto) Henderson % (Auto) Eos % (Auto) Baso % (Auto) Absolute Neuts (auto) Absolute Lymphs (auto) Nucleated RBC % Differential Comment PT 14.4 INR 1.1 APTT 35.6 Sodium Potassium Chloride Carbon Dioxide Anion Gap BUN Creatinine Estim Creat Clear Calc Est GFR (MDRD) Af Amer Est GFR (MDRD) Non-Af BUN/Creatinine Ratio Glucose Hemoglobin A1c Calcium Troponin I 2.400 H* 1.960 H* 10/24/18 10/24/18 10/24/18 01:37 07:40 07:40 WBC 15.9 H RBC 5.04 Hgb 15.7 Hct 48.5 MCV 96.2 H MCH 31.2 MCHC 32.4 RDW Std Deviation 49.3 H RDW Coeff of Momo 14.0 Plt Count 165 MPV 9.2 Immature Gran % (Auto) 0.800 Neut % (Auto) 89.8 H Lymph % (Auto) 5.0 L Henderson % (Auto) 3.3 Eos % (Auto) 0.9 Baso % (Auto) 0.2 Absolute Neuts (auto) 14.3 H Absolute Lymphs (auto) 0.80 L Nucleated RBC % 0 Differential Comment SCANNED PT INR APTT 58.0 H Sodium 135 L Potassium 5.3 H Chloride 103 Carbon Dioxide 28.0 Anion Gap 4 L BUN 43 H Creatinine 1.76 H Estim Creat Clear Calc 36.82 Est GFR (MDRD) Af Amer 49 L Est GFR (MDRD) Non-Af 40 L BUN/Creatinine Ratio 24.4 H Glucose 294 H Hemoglobin A1c Calcium 7.8 L Troponin I 10/24/18 10/24/18 10/24/18 07:40 07:40 13:30 WBC RBC Hgb Hct MCV MCH MCHC RDW Std Deviation RDW Coeff of Momo Plt Count MPV Immature Gran % (Auto) Neut % (Auto) Lymph % (Auto) Henderson % (Auto) Eos % (Auto) Baso % (Auto) Absolute Neuts (auto) Absolute Lymphs (auto) Nucleated RBC % Differential Comment PT INR APTT 66.2 H 63.1 H Sodium Potassium Chloride Carbon Dioxide Anion Gap BUN Creatinine Estim Creat Clear Calc Est GFR (MDRD) Af Amer Est GFR (MDRD) Non-Af BUN/Creatinine Ratio Glucose Hemoglobin A1c 7.2 H Calcium Troponin I POC Glucose 10/24/18 10/24/18 10/24/18 16:21 11:18 08:26 POC Glucose 330 H 404 H 304 H 10/23/18 22:06 POC Glucose 215 H Medical Necessity - Tobacco Use Smoking Status: Former smoker - quit 12 years ago Tobacco Use: Non-smoker Assessment/Plan All Active Problems (Last Updated 10/23/18 @ 16:32 by Magno Sheppard DO) Acute respiratory failure with hypoxia (Acute) COPD exacerbation (Acute) Pneumonia, pneumococcal (Acute) NSTEMI (non-ST elevated myocardial infarction) (Acute) #1 acute on chronic hypoxic respiratory failure-patient is currently on 5 L via nasal cannula at the time my examination, pulmonary medicine is participating in his care #2 right lower lobe community-acquired pneumonia-continue present antibiotic coverage #3 acute [id number] is currently on a heparin drip, cardiology is participating in his care, it is planned that he has a cardiac catheterization during this admission #4 type 2 diabetes-continue present insulin coverage #5 chronic kidney disease stage III secondary to type 2 diabetes #6 acute exacerbation of COPD Code Visit Inpatient E&M: 41692 Subs Hosp L2
--- NOTE | 2018-10-24 21:45 | NURSING ---
Notified Radha MuñozAirport Location Manager that ptt came back critical high as she was concerned that it would be tainted d/t drawing above iv site where heparin was infusing. Radha currently looking for alternative staff to draw pt d/t challenging draw.
[2018-10-24] MEDS: Atorvastatin Calcium 80 MG Tablet PO (23:04)
[2018-10-24] MEDS: MELATONIN 3 MG TABLET PO (23:06)
[2018-10-24 23:46] LABS: Bedside Glucose 403 mg/dL (70-110)
[2018-10-25] VITALS (17 sets, daily range): BP systolic 123–147; BP diastolic 52–68; PULSE 58–79; RESP 16–20; TEMP 36.3–36.6; O2SAT 92–97
[2018-10-25 00:21] LABS: Partial Thromboplast Time 63.5 Seconds (24.1-36.2)
[2018-10-25] MEDS: Insulin Lispro 100 UNIT/ML INSULN.PEN SC ×5 (01:19→21:40)
[2018-10-25 01:26] LABS: Bedside Glucose 400 mg/dL (70-110)
[2018-10-25] MEDS: HEPARIN/D5w 25,000 UNITS 25,000 UNITS/250 ML IV.SOLN. 15 UNITS IV (03:39)
[2018-10-25] MEDS: Ipratropium/Albuterol Sulfate 3 ML AMPUL.NEB INHALATION ×6 (03:50→23:35)
--- NOTE | 2018-10-25 05:15 | RAD_ITS ---
STUDY: X-RAY CHEST REASON FOR EXAM: Male, 73 years old. Acute respiratory failure and elevated troponin. Shortness of breath TECHNIQUE: Single AP portable view of the chest. COMPARISON: None. FINDINGS: There is a multilead permanent pacemaker. There are superimposed monitor leads. There is opacification in the lung bases with shallow inspiratory level and compression of parenchyma, probable atelectasis in the right base. There are areas of hyperinflation. Mild vascular prominence. There is no demonstrated pleural abnormality. Sternal cerclage wires and vascular clips are present from a prior sternotomy and coronary artery bypass graft procedure (CABG). Normal mediastinum and marissa. Normal visualized pulmonary arteries. There is atherosclerotic calcification of the aortic arch with tortuosity. There is demineralization of the osseous structures. There is degenerative osteoarthritis of the bilateral shoulders. There is no demonstrated abnormality of the visualized soft tissue structures of the upper abdomen. RAD/Chest 1 View (Portable) IMPRESSION: Interstitial lung disease with areas of hyperinflation, compression of basilar parenchyma slightly more pronounced right compared to the left base. If there is clinical concern for pneumonia, follow-up examination right base is recommended. Mild vascular prominence could be chronic in nature. Postsurgical changes, atherosclerosis, osteoporosis felt to be nonacute findings. Electronically Signed: Maddison Apodaca MD at 6:16 EDT , Service support ,
[2018-10-25] MEDS: 0.9% NaCl Peripheral Flush Adult/Peds IV ×3 (05:48→21:41)
[2018-10-25 05:56] LABS: Absolute Lymphocyte Count 0.48 X10^3/uL (0.83-4.51); Absolute Neutrophil Count 12.6 X10^3/uL (2.0-7.7); Basophil# 0.01 X10^3/uL; Basophil% 0.1 % (0-1); Hematocrit 46.2 % (40-54); Lymphocyte # 0.48 X10^3/ul (4.0); Lymphocyte % 3.5 % (19-41); Mean Corp Hgb Conc 32.5 g/dL (32-36); Mean Corpuscular Hgb 30.6 pg (27.0-32.0); Mean Corpuscular Volume 94.3 fL (80-94); Mean Platelet Vol. 9.8 fl (6.2-12.0); Monocyte# 0.55 X10^3/uL; NRBC Flagged by Analyzer 0 % (0-5); Neutrophil # 12.64 X10^3/uL (2.7-7.7); Neutrophil % 91.5 % (47-70); POSITIVE DIFFERENTIAL YES; POSITIVE MORPHOLOGY YES; Platelet Count 174 K/mm3 (150-450); RBC Distribution Width CV 13.6 % (11.6-14.6); RBC Distribution Width SD 47.1 fl (35.1-43.9); White Blood Count 13.8 K/mm3 (4.4-11.0)
[2018-10-25 06:06] LABS: Partial Thromboplast Time 68.3 Seconds (24.1-36.2)
[2018-10-25 06:09] LABS: Differential Indicated SCAN CRITERIA MET
[2018-10-25 06:16] LABS: Anion Gap 7 (5-15); BUN 50 mg/dL (7-18); BUN/Creat Ratio 30.9 RATIO (10-20); Calcium,Total 8.2 mg/dL (8.5-10.1); Chloride 101 mmol/L (98-107); Creatinine, Serum 1.62 mg/dL (0.70-1.30); EST Glomerular Filtration Rate 45 mL/min (>60); Est Glom Filt Rate - Afr Amer 54 mL/min (>60); Estimated Creatinine Clearance 40.01 ml/min; Glucose 383 mg/dL (74-106); Potassium 5.3 mmol/L (3.5-5.1); Sodium Level 135 mmol/L (136-145)
[2018-10-25 06:24] LABS: Differential Comment SCANNED
--- NOTE | 2018-10-25 07:43 | PN_ITS ---
Patient Problems: Active and Suspected Problems (Last Updated 10/23/18 @ 16:32 by Magno Sheppard DO) Acute respiratory failure with hypoxia (Acute) COPD exacerbation (Acute) Pneumonia, pneumococcal (Acute) NSTEMI (non-ST elevated myocardial infarction) (Acute) Congestive heart failure (Suspected) Subjective: Patient reports subjective improvement compared to previous. Patient denies any current chest pain. Patient has been coughing, but reports minimal production. Patient has not had any bleeding complications. Oxygenation has improved, but patient is still reporting some dyspnea on exertion. - Physical Exam General: Alert, Oriented x3, Cooperative, No apparent distress, Well developed, Well nourished, - - No conversational dyspnea. HEENT: Atraumatic, PERRLA, EOMI, Normocephalic, - - No scleral icterus or injection noted Oral: Moist Mucosa, No Gingival or Mucosal Lesions/ Ulcerations Neck: Supple, No JVD, No Nodes, Trachea Midline Lungs: No wheeze, No rales, Diminished, Rhonchi - Right base, - - Symmetric expansion. No dullness to percussion. Cardiovascular: Regular rate, Regular Rhythm, Normal S1, Normal S2, Murmur - Grade 2 out of 6 systolic ejection murmur at the left sternal border, No rub noted, No Gallop Abdomen: Bowel Sounds Present, Soft, Non Tender, Non-Distended, Obese Extremities: No cyanosis, Capillary Refill Less than 3 Seconds, Edema Skin: No rashes, No breakdown Musculoskeletal: No Tenderness to Palpation of Joints or Extremities Lymphatic: No Cervical, Supraclavicular, or Inguinal Adenopathy Neurological: Cranial nerves II-XII grossly intact, Neuro grossly intact, Motor Exam 5/5 strength throughout Psych/Mental Status: Alert and oriented to time, place, person, mood and affect Vital Signs Temp Pulse Resp BP Pulse Ox 36.4 C L 66 18 123/62 H 94 10/25/18 04:02 10/25/18 07:30 10/25/18 04:02 10/25/18 04:02 10/25/18 04:02 Oxygen Flow Rate (L/min) 3 Oxygen Delivery Method Nasal Cannula Weight: 104.5 kg Body Mass Index (BMI) 33.4 Intake and Output for Last 24 Hours 10/23/18 10/24/18 10/25/18 23:59 23:59 23:59 Intake Total 1674.5 / 1674.5 2261.50 / 2261.50 101.50 / 101.50 Output Total 400 / 400 1350 / 1350 575 / 575 Balance 1274.5 / 1274.5 911.50 / 911.50 -473.50 / -473.50 Microbiology Past 72 Hours 10/23/18 19:50 Gram Stain - Final Sputum, Expectorated/Coughed Respiratory Culture - Preliminary Appears to be normal respiratory justina. Further studies to follow. 10/23/18 16:05 Streptococcus pneumoniae Antigen (M - Final Urine, Clean Catch 10/23/18 16:05 Legionella Antigen - Final Urine, Clean Catch Laboratory Tests Past 24 Hrs 10/24/18 10/24/18 10/24/18 07:40 07:40 07:40 WBC 15.9 H RBC 5.04 Hgb 15.7 Hct 48.5 MCV 96.2 H MCH 31.2 MCHC 32.4 RDW Std Deviation 49.3 H RDW Coeff of Momo 14.0 Plt Count 165 MPV 9.2 Immature Gran % (Auto) 0.800 Neut % (Auto) 89.8 H Lymph % (Auto) 5.0 L [place] % (Auto) 3.3 Eos % (Auto) 0.9 Baso % (Auto) 0.2 Absolute Neuts (auto) 14.3 H Absolute Lymphs (auto) 0.80 L Nucleated RBC % 0 Differential Comment SCANNED APTT Sodium 135 L Potassium 5.3 H Chloride 103 Carbon Dioxide 28.0 Anion Gap 4 L BUN 43 H Creatinine 1.76 H Estim Creat Clear Calc 36.82 Est GFR (MDRD) Af Amer 49 L Est GFR (MDRD) Non-Af 40 L BUN/Creatinine Ratio 24.4 H Glucose 294 H Hemoglobin A1c 7.2 H Calcium 7.8 L 10/24/18 10/24/18 10/24/18 07:40 13:30 20:45 WBC RBC Hgb Hct MCV MCH MCHC RDW Std Deviation RDW Coeff of Momo Plt Count MPV Immature Gran % (Auto) Neut % (Auto) Lymph % (Auto) [place] % (Auto) Eos % (Auto) Baso % (Auto) Absolute Neuts (auto) Absolute Lymphs (auto) Nucleated RBC % Differential Comment APTT 66.2 H 63.1 H Cancelled Sodium Potassium Chloride Carbon Dioxide Anion Gap BUN Creatinine Estim Creat Clear Calc Est GFR (MDRD) Af Amer Est GFR (MDRD) Non-Af BUN/Creatinine Ratio Glucose Hemoglobin A1c Calcium 10/24/18 10/25/18 10/25/18 23:58 05:03 05:03 WBC 13.8 H RBC 4.90 Hgb 15.0 Hct 46.2 MCV 94.3 H MCH 30.6 MCHC 32.5 RDW Std Deviation 47.1 H RDW Coeff of Momo 13.6 Plt Count 174 MPV 9.8 Immature Gran % (Auto) 0.900 Neut % (Auto) 91.5 H Lymph % (Auto) 3.5 L [place] % (Auto) 4.0 Eos % (Auto) 0.0 Baso % (Auto) 0.1 Absolute Neuts (auto) 12.6 H Absolute Lymphs (auto) 0.48 L Nucleated RBC % 0 Differential Comment SCANNED APTT 63.5 H Sodium 135 L Potassium 5.3 H Chloride 101 Carbon Dioxide 27.0 Anion Gap 7 BUN 50 H Creatinine 1.62 H Estim Creat Clear Calc 40.01 Est GFR (MDRD) Af Amer 54 L Est GFR (MDRD) Non-Af 45 L BUN/Creatinine Ratio 30.9 H Glucose 383 H Hemoglobin A1c Calcium 8.2 L 10/25/18 05:03 WBC RBC Hgb Hct MCV MCH MCHC RDW Std Deviation RDW Coeff of Momo Plt Count MPV Immature Gran % (Auto) Neut % (Auto) Lymph % (Auto) [place] % (Auto) Eos % (Auto) Baso % (Auto) Absolute Neuts (auto) Absolute Lymphs (auto) Nucleated RBC % Differential Comment APTT 68.3 H Sodium Potassium Chloride Carbon Dioxide Anion Gap BUN Creatinine Estim Creat Clear Calc Est GFR (MDRD) Af Amer Est GFR (MDRD) Non-Af BUN/Creatinine Ratio Glucose Hemoglobin A1c Calcium POC Glucose 10/25/18 10/24/18 10/24/18 01:16 23:01 16:21 POC Glucose 400 H 403 H 330 H 10/24/18 10/24/18 11:18 08:26 POC Glucose 404 H 304 H Clinical Impression(s) from Imaging Studies Chest X-Ray 10/25/18 05:15 IMPRESSION: Interstitial lung disease with areas of hyperinflation, compression of basilar parenchyma slightly more pronounced right compared to the left base. If there is clinical concern for pneumonia, follow-up examination right base is recommended. Mild vascular prominence could be chronic in nature. Postsurgical changes, atherosclerosis, osteoporosis felt to be nonacute findings. Electronically Signed: Maddison Apodaca MD at 6:16 EDT , Service support , Medical Necessity - Tobacco Use Smoking Status: Former smoker - quit 12 years ago Tobacco Use: Non-smoker Assessment/Plan All Active Problems (Last Updated 10/23/18 @ 16:32 by Magno Sheppard DO) Acute respiratory failure with hypoxia (Acute) COPD exacerbation (Acute) Pneumonia, pneumococcal (Acute) NSTEMI (non-ST elevated myocardial infarction) (Acute) RECOMMENDATIONS: 1. Continue antibiotics, bronchodilators. Wean steroids 2. Increase activity as tolerated 3. Wean oxygen as tolerated 4. Await cardiology recommendations 5. Aggressive pulmonary toileting IMPRESSIONS: 1. Acute on chronic hypoxic respiratory failure Likely multifactorial etiology. Patient may have a component of cor pulmonale/CHF secondary to noncompliance with supplemental oxygen at baseline. Patient does have an extensive smoking history in the right lower lobe infiltrate suggestive of an acute exacerbation of COPD secondary to community- acquired pneumonia. Patient does have an elevated leukocytosis at this time, but this may be secondary to demargination with steroid use. Unclear on patient's home medications. Patient appears to be on multiple inhaled corticosteroids of unclear intention. Patient was reporting some pink frothy sputum initially, which may be secondary to the CHF/cor pulmonale from probable prolonged hypoxemia. Patient's respiratory status has improved with just supporting oxygenation. Likely okay to hold on any diuresis. Agree with empiric antibiotics at this time. Patient will need to complete pulmonary function test and walking oximetry as an outpatient. 2. Non-ST elevation myocardial infarction Clinical suspicion for troponin secondary to prolonged hypoxemia more than an acute event. However, patient does have an extensive cardiac history and may have developed restenosis. Patient is currently on a heparin drip. Echocardiogram has been ordered. Troponins continue to improve. Cardiology to see the patient. 3. CKD stage III/diabetes mellitus type 2/obesity/advanced age Complicates care, management, recovery and prognosis. Will need to watch blood sugars closely given concomitant steroid therapy. Patient may benefit from evaluation of obstructive sleep apnea as an outpatient. Poor information on baseline creatinine at this time. Will attempt to clarify. Agree with holding KAREN inhibitor and hydrochlorothiazide acutely. Code Visit Inpatient E&M: 01955 Subs Hosp L2
[2018-10-25] MEDS: Aspirin E.C. 81 MG Tablet PO (07:49)
[2018-10-25] MEDS: Insulin Lispro 100 UNIT/ML INSULN.PEN 12 UNIT SC (07:49)
[2018-10-25 08:16] LABS: Bedside Glucose 386 mg/dL (70-110)
[2018-10-25] MEDS: Magnesium Oxide 400 MG Tablet PO (09:15)
[2018-10-25] MEDS: Metoprolol Tartrate 25 MG Tablet PO ×2 (09:15→21:40)
[2018-10-25] MEDS: Clopidogrel Bisulfate 75 MG Tablet PO (09:15)
[2018-10-25] MEDS: Ceftriaxone 1 GM/50 ML BAG IV (09:15)
[2018-10-25] MEDS: Montelukast 10 MG Tablet PO (09:15)
--- NOTE | 2018-10-25 10:14 | PCM.PN.CARD ---
Subjectve: Patient doing much better this morning from a respiratory standpoint. No shortness of breath, no chest pain, no angina. Telemetry showed normal sinus rhythm, no ventricular ectopy. Objective: Vital Signs Temp Pulse Resp BP Pulse Ox 97.8 F 72 18 125/52 H 92 10/25/18 09:12 10/25/18 09:15 10/25/18 09:12 10/25/18 09:12 10/25/18 09:12 Oxygen Flow Rate (L/min) 3 Oxygen Delivery Method Nasal Cannula Weight: 230 lb 6.129 oz Body Mass Index (BMI) 33.4 Intake and Output for Last 24 Hours 10/23/18 10/24/18 10/25/18 23:59 23:59 23:59 Intake Total 1674.5 / 1674.5 2261.50 / 2261.50 141.00 / 141.00 Output Total 400 / 400 1350 / 1350 575 / 575 Balance 1274.5 / 1274.5 911.50 / 911.50 -434.00 / -434.00 General: Awake, Alert, Oriented x 3 HEENT: PERRL, EOMI, Sclera Non Icteric Neck: Supple, Good ROM, No Lymph Node Enlargement Lungs: Clear to auscultation Cardiovascular: Regular Rhythm, Normal S1, Normal S2, No Murmurs, No Rubs, No Gallops Vascular: No Carotid Bruits, Normal Femoral Pulses, Normal Radial Pulses, Normal Dorsalis Pedal Pulse, Normal Posterior Tibial Pulses Abdomen: Bowel Sounds Present, Soft, Non Tender, No HSM, No Organomegaly Extremities: No Cyanosis, No Clubbing, No edema Neurological: No Focal Motor or Sensory Deficit 10/24/18 13:30: APTT 63.1 H 10/24/18 20:45: APTT Cancelled 10/24/18 23:58: APTT 63.5 H 10/25/18 05:03: WBC 13.8 H, RBC 4.90, Hgb 15.0, Hct 46.2, MCV 94.3 H, MCH 30.6, MCHC 32.5, Plt Count 174, MPV 9.8, Immature Gran % (Auto) 0.900, Neut % (Auto) 91.5 H, Lymph % (Auto) 3.5 L, [place] % (Auto) 4.0, Eos % (Auto) 0.0, Baso % (Auto) 0.1, Absolute Neuts (auto) 12.6 H, Nucleated RBC % 0 10/25/18 05:03: Sodium 135 L, Potassium 5.3 H, Chloride 101, Carbon Dioxide 27.0, Anion Gap 7, BUN 50 H, Creatinine 1.62 H, Est GFR (MDRD) Af Amer 54 L, Est GFR (MDRD) Non-Af 45 L, BUN/Creatinine Ratio 30.9 H, Glucose 383 H, Calcium 8.2 L 10/25/18 05:03: APTT 68.3 H Rhythm: EKG: ECHO: Stress Test: Cardiac Cath: PCI: CT Surgery: Holter monitor: EPS: PPM: CXR: Chest CT Scan: Medical Necessity - Tobacco Use Smoking Status: Former smoker - quit 12 years ago Tobacco Use: Non-smoker Assessment/Plan 1. Coronary artery disease: The patient is status post three-vessel bypass surgery at [facility] in 1998, with subsequent catheterizations both at [facility] as well as an [facility]. He reportedly has had stents placed in the [facility] with subsequent catheterizations at [facility]. I recommend the patient continue baby aspirin, Plavix 75 mg a day, and we could discontinue his IV heparin as he has been chest pain-free for 48 hours, and his troponins are trending downwards. I have reviewed the records from the [facility] and apparently the patient had three-vessel bypass surgery with a SINGH to the LAD, a saphenous vein graft to the RCA, and a saphenous vein graft to the posterior lateral branch of the left circumflex. In addition in 2005 he underwent drug-eluting Taxus stent to the RCA at an outside hospital in the [facility]. His most recent echocardiogram was in July 2018 which demonstrated intact LV function which is different than his LV function obtained on the echocardiogram from this admission. His echocardiogram from 10/24/2018 is as follows: Interpretation Summary Mild concentric left ventricular hypertrophy. The estimated ejection fraction is 45-50 %. Stage 1 diastolic dysfunction. Infero-Basal: Mildly hypokinetic Posterior-Basal: Mildly hypokinetic Trivial tricuspid valve insufficiency. Right ventricular systolic pressure estimated to be 35 mmHg. Fusion of the right and left coronary cusps Moderate to severe aortic stenosis, but may be underestimated due to reduced LV function. Calculated aortic valve area (continuity equation) is 1.1 cm2. Trivial aortic valve insufficiency. There is no comparison study available. Given his coronary artery disease and bypass surgery and now with his LV dysfunction, I recommend that he continue his baby aspirin, Plavix, metoprolol, and that we start Cozaar 25 mg p.o. daily. I recommended the patient undergo a repeat left heart catheterization and graft angiography 10/26/2018 how that his pulmonary situation has stabilized. 2. Hyperlipidemia: Recommend obtaining a fasting lipid profile. Continue Crestor. 3. Thank you very much for the opportunity to participate in the cardiac care of your patient. Plan for left heart catheterization tomorrow morning. Code Visit Inpatient E&M: 53873 Subs Hosp L2
[2018-10-25 10:45] LABS: Cholesterol 157 mg/dL (200); High Density Lipoprotein 45 mg/dL; Triglycerides 141 mg/dL; Very Low Density Lipoprotein 28 mg/dL (5-40)
[2018-10-25 11:30] LABS: Bedside Glucose > 500 mg/dL (70-110)
[2018-10-25] MEDS: Insulin Lispro 100 UNIT/ML INSULN.PEN 18 UNIT SC ×2 (11:58→17:00)
[2018-10-25 16:45] LABS: Bedside Glucose 366 mg/dL (70-110)
--- NOTE | 2018-10-25 17:12 | PCM.PROGNOTE ---
Patient Problems: Active and Suspected Problems (Last Updated 10/23/18 @ 16:32 by Magno Sheppard DO) Acute respiratory failure with hypoxia (Acute) COPD exacerbation (Acute) Pneumonia, pneumococcal (Acute) NSTEMI (non-ST elevated myocardial infarction) (Acute) Congestive heart failure (Suspected) Subjective: Patient was seen and examined today, I talked briefly with cardiology and critical care about his care. Critical care does not feel the patient had septic shock or sepsis, patient's lactic acid level at [facility] was highly elevated-this may have been due to respiratory issues. Patient's creatinine is somewhat improved today, he is currently on 3 L of oxygen via nasal cannula. Patient's blood sugars have been very elevated today possibly in part due to his IV steroids. I have adjusted his insulin dosage upward. - Physical Exam General: Alert, Oriented x3, Cooperative, No apparent distress, Well developed HEENT: Atraumatic, PERRLA, EOMI, Normocephalic Oral: Moist Mucosa Neck: Supple, No JVD, Trachea Midline, Thyroid Normal Size and Texture Lungs: Normal air movement, No rhonchi, No rales, Wheezes - Expiratory wheezes are scattered over both lungs Cardiovascular: Regular rate, Regular Rhythm, Normal S1, Normal S2, No murmurs Abdomen: Bowel Sounds Present, Soft, Non Tender, Non-Distended Extremities: No clubbing, No cyanosis, No edema, Capillary Refill Less than 3 Seconds Skin: No rashes, No breakdown Musculoskeletal: No Tenderness to Palpation of Joints or Extremities Neurological: Cranial nerves II-XII grossly intact, Neuro grossly intact, Sensory exam intact to light touch and pain, Coordination normal Psych/Mental Status: Normal Affect, Appropriate, Alert and oriented to time, place, person, mood and affect Vital Signs Temp Pulse Resp BP Pulse Ox 97.7 F L 66 16 147/68 H 96 10/25/18 15:29 10/25/18 15:43 10/25/18 15:43 10/25/18 15:29 10/25/18 15:29 Oxygen Flow Rate (L/min) 3 Oxygen Delivery Method Nasal Cannula Weight: 104.5 kg Body Mass Index (BMI) 33.4 Intake and Output for Last 24 Hours 10/23/18 10/24/18 10/25/18 23:59 23:59 23:59 Intake Total 1674.5 / 1674.5 2261.50 / 2261.50 1546.00 / 1546.00 Output Total 400 / 400 1350 / 1350 1900 / 1900 Balance 1274.5 / 1274.5 911.50 / 911.50 -354.00 / -354.00 Microbiology Past 72 Hours 10/23/18 19:50 Gram Stain - Final Sputum, Expectorated/Coughed Respiratory Culture - Preliminary Appears to be normal respiratory justina. Further studies to follow. 10/23/18 16:05 Streptococcus pneumoniae Antigen (M - Final Urine, Clean Catch 10/23/18 16:05 Legionella Antigen - Final Urine, Clean Catch Laboratory Tests Past 24 Hrs 10/24/18 10/24/18 10/25/18 20:45 23:58 05:03 WBC 13.8 H RBC 4.90 Hgb 15.0 Hct 46.2 MCV 94.3 H MCH 30.6 MCHC 32.5 RDW Std Deviation 47.1 H RDW Coeff of Momo 13.6 Plt Count 174 MPV 9.8 Immature Gran % (Auto) 0.900 Neut % (Auto) 91.5 H Lymph % (Auto) 3.5 L [place] % (Auto) 4.0 Eos % (Auto) 0.0 Baso % (Auto) 0.1 Absolute Neuts (auto) 12.6 H Absolute Lymphs (auto) 0.48 L Nucleated RBC % 0 Differential Comment SCANNED APTT Cancelled 63.5 H Sodium Potassium Chloride Carbon Dioxide Anion Gap BUN Creatinine Estim Creat Clear Calc Est GFR (MDRD) Af Amer Est GFR (MDRD) Non-Af BUN/Creatinine Ratio Glucose Calcium Triglycerides Cholesterol LDL Cholesterol VLDL Cholesterol HDL Cholesterol 10/25/18 10/25/18 10/25/18 05:03 05:03 05:03 WBC RBC Hgb Hct MCV MCH MCHC RDW Std Deviation RDW Coeff of Momo Plt Count MPV Immature Gran % (Auto) Neut % (Auto) Lymph % (Auto) [place] % (Auto) Eos % (Auto) Baso % (Auto) Absolute Neuts (auto) Absolute Lymphs (auto) Nucleated RBC % Differential Comment APTT 68.3 H Sodium 135 L Potassium 5.3 H Chloride 101 Carbon Dioxide 27.0 Anion Gap 7 BUN 50 H Creatinine 1.62 H Estim Creat Clear Calc 40.01 Est GFR (MDRD) Af Amer 54 L Est GFR (MDRD) Non-Af 45 L BUN/Creatinine Ratio 30.9 H Glucose 383 H Calcium 8.2 L Triglycerides 141 Cholesterol 157 LDL Cholesterol 84 VLDL Cholesterol 28 HDL Cholesterol 45 POC Glucose 10/25/18 10/25/18 10/25/18 16:31 11:20 07:45 POC Glucose 366 H > 500 H* 386 H 10/25/18 10/24/18 01:16 23:01 POC Glucose 400 H 403 H Medical Necessity - Tobacco Use Smoking Status: Former smoker - quit 12 years ago Tobacco Use: Non-smoker Assessment/Plan All Active Problems (Last Updated 10/23/18 @ 16:32 by Magno Sheppard DO) Acute respiratory failure with hypoxia (Acute) COPD exacerbation (Acute) Pneumonia, pneumococcal (Acute) NSTEMI (non-ST elevated myocardial infarction) (Acute) #1 acute on chronic hypoxic respiratory failure-patient is currently on 3 L via nasal cannula at the time my examination, pulmonary medicine is participating in his care #2 right lower lobe community-acquired pneumonia-continue present antibiotic coverage, I do not believe the patient has severe sepsis or septic shock #3 acute cue-[id number] is currently on a heparin drip, cardiology is participating in his care, it is planned that he has a cardiac catheterization tomorrow #4 type 2 diabetes-continue to adjust present insulin coverage #5 chronic kidney disease stage III secondary to type 2 diabetes #6 acute exacerbation of COPD #7 history of ventricular tachycardia-patient has an ICD which was placed years ago Code Visit Inpatient E&M: 03972 Subs Hosp L2
[2018-10-25] MEDS: Atorvastatin Calcium 80 MG Tablet PO (21:39)
[2018-10-25] MEDS: MELATONIN 3 MG TABLET PO (21:42)
[2018-10-25 21:46] LABS: Bedside Glucose 265 mg/dL (70-110)
[2018-10-26] VITALS (33 sets, daily range): BP systolic 131–179; BP diastolic 46–97; PULSE 55–66; RESP 13–23; TEMP 36.6; O2SAT 89–98
[2018-10-26] MEDS: Aspirin E.C. 81 MG Tablet PO (05:56)
[2018-10-26] MEDS: Clopidogrel Bisulfate 75 MG Tablet PO (05:56)
[2018-10-26] MEDS: Metoprolol Tartrate 25 MG Tablet PO (05:57)
[2018-10-26 06:02] LABS: Prothrombin Time (Protime)PT. 12.9 SECONDS (11.7-14.9)
[2018-10-26 06:13] LABS: Anion Gap 7 (5-15); BUN 50 mg/dL (7-18); BUN/Creat Ratio 33.8 RATIO (10-20); Calcium,Total 8.5 mg/dL (8.5-10.1); Chloride 105 mmol/L (98-107); Creatinine, Serum 1.48 mg/dL (0.70-1.30); EST Glomerular Filtration Rate 49 mL/min (>60); Est Glom Filt Rate - Afr Amer 60 mL/min (>60); Estimated Creatinine Clearance 43.79 ml/min; Glucose 274 mg/dL (74-106); Potassium 5.6 mmol/L (3.5-5.1); Sodium Level 137 mmol/L (136-145)
[2018-10-26 06:40] LABS: Bedside Glucose 274 mg/dL (70-110)
[2018-10-26] MEDS: DiphenhydrAMINE 25 MG Capsule 50 MG PO (07:20)
--- NOTE | 2018-10-26 07:24 | NURSING ---
Report called to maricarmen in the cardiac catheterization technician.
--- NOTE | 2018-10-26 08:39 | NURSING ---
report called to ICU
[2018-10-26 09:16] LABS: ACT Activated Clotting Time 147 sec (74-137)
--- NOTE | 2018-10-26 09:16 | CL.I_ITS ---
Patient Name: VIVEK ZACARIAS Study Date: 10/26/2018 Performing: Eliezer Ruiz MD Ht: 68.89 inches 175 cm : 1945 Wt: 233.69 lbs 106 kg Age: 73 Gender: male BSA: 2.2 PROCEDURE(S) PERFORMED LV52-EDW/COR/LV DC11-AO ROOT ANGIO WITH HEART CATH AX74-IWX W OR WO PTCA, SINGLE CORONARY ARTERY CLINICAL PROFILE AND CO-MORBIDITIES Patient presents with NSTEMI for urgent cardiac cath Indications: New Onset Angina <= 2 months, Stable Known CAD, LV Dysfunction Heart Failure: NYHA Class: 2, Newly Diagnosed: No, Heart Failure Type: Systolic Stress/Imaging Stress/Image Study Performed: No Angina Classification Anginal Classification w/in 2 Weeks: CCS III CAD Presentations: Unstable angina. Non-STEMI. Symptom onset Date/Time: 10/23/2018 Time Not Availa ble Comorbidities/Risk Factors: Hypertension Dyslipidemia Prior PCI Prior CABG Diabetes Mellitus: Diabetes Therapy: Insulin CONCLUSIONS Successful PTCA/ODILON distal LCX with a 2.25 x 20 Promus Synergy stent, post dilated proximally with a 2.5 x 8 NC Balloon; 75%-->0%, no dissection. 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 Ruiz Manual sheath removal as access is at bifurcation of SFA and profunda. Stress test in 2 weeks to eval septal collar feller ischemia; if abnormal for either anterior septal and /or inferior ischemia, will consider PCI of large septal collar feller. Ascending aortogram appears to demonstrate occluded SVG to LCX. DESCRIPTION OF PROCEDURE The patient arrived to the procedure lab. The risks and benefits of the procedure as well as a full d escription of our services here and lack of surgical backup were fully explained to the patient and/o r their significant other prior to the catheterization. The Timeout was completed, verifying the nessa ect patient and procedure. The patient's procedural site was prepped and draped in the usual fashion. Local anesthetic was given subcutaneously to right groin region with Lidocaine 2%. Using a modified Seldinger technique, arterial access was obtained via the right femoral artery, a 4Fr sheath was inse rted. Left Coronary Artery selective angiography was performed in multiple views using a 4 Fr. JL4 c atheter. Right Coronary Artery selective angiography was then performed in multiple views using a 4 F r. 3DRC catheter. Left internal mammary artery graft to the LAD selective angiography was performed i n multiple views using a 4 Fr. 3DRC catheter. Left Ventriculography was performed in [place] projection using a 4 Fr. Pigtail catheter. LV to AO pullback pressures were then recorded. Ascending (root) aorta selective angiography was then performed in single view. Ascending (root) aorta selectiv e angiography was then performed in single view Arterial sheath was exchanged for a 6 Fr Sheath. EBU 3.75 Guide catheter was inserted and engaged into the LCA. [employer] [place] Guide wire was advanced to the Circumflex. Emerge 2.0 x [address] was inserted. Balloon catheter was advanced across lesion in the circumflex, distal. PTCA balloon inflated at 8 atms for 12 secs. Angiogram performed post balloon dilatation. Synergy 2.25 x 20 Drug Eluting stent was inserted. Drug Eluting stent was advanced across the lesion in the circumflex, dist al. Angiogram performed pre stent deployment. Angiogram performed post stent deployment. NC Emerge 2. 5 x 8 Balloon catheter was inserted. Balloon catheter was advanced across lesion in the circumflex, d istal. Angiogram performed pre balloon dilatation. PTCA balloon inflated at 12 atms for 7 secs. Angio gram performed post balloon dilatation. PTCA balloon inflated at 14 atms for 12 secs. Contrast was in jected through the sheath and the Right Iliac and Femoral artery were assessed for possible closure device. The arterial sheath was sutured in place and capped to be held in the [facility] area. CORONARY ANGIOGRAPHY DOMINANCE: Right Dominant LEFT HEART ASSESSMENT Left Ventricular Ejection Fraction: by LV Gram 50 % Depressed Left Ventricular systolic function LVEDP: 26 mmHg Elevated Left Ventricular End Diastolic Pressure Inferior Mid Hypokinesis - Mild to Moderate LEFT MAIN: No significant disease noted LEFT ANTERIOR DESCENDING ARTERY: MID LAD: is occluded SEPTAL: 65 % Stenosis CIRCUMFLEX ARTERY: DISTAL CIRC: 75% Stenosis RIGHT CORONARY ARTERY: is occluded GRAFTS: SINGH graft to the LAD is patent Saphenous Vein graft to the RCA is totally occluded Saphenous Vein graft to the PLV is totally occluded COLLATERAL FLOW: Collateral flow from Left to Right via septal perforators. INTERVENTION INFORMATION LESION SITE: Circumflex (Distal) Lesion Complexity: High/C, lesion at bifurcation: No, thrombus present: No, lesion length: 20 mm, cul prit lesion: Yes Pre Stenosis: 75 % Pre intervention AMANDA flow: 3 PROCEDURE: Drug Eluting Stent with pre and post dilatation Post Stenosis: 0 % Post intervention AMANDA flow: 3 Lesion Devices: Medtronic 6 Fr EBU3.75 100cm Guide Catheter Kelley .014 [employer] [place] Straight 190cm Saurabh Sci EMERGE MR 2.00x12 BALLOON Saurabh Sci Synergy MR ODILON 2.25x20 Saurabh Sci NC EMERGE MR 2.50x08 BALLOON COMPLICATIONS No Complications PROCEDURE MEDICATIONS Versed 1 mg IV Oxygen: 3 L/min via nasal cannula Heparin 6000 unit(s) IV 10/26/2018 08:30:44 Nitro 200 mcg IC 10/26/2018 08:32:52 Nitro 200 mcg IC 10/26/2018 08:32:52 IV Bolus: .9 NaCl 300 ml total 10/26/2018 08:33:16 SUMMARY OF HEMODYNAMIC DATA Time AIR REST ECG 07:41:39 AO 196/83 (125) SA 08:01:32 LV 185/-4, 26 08:25:54 LV 184/-1, 27 08:26:00 LVp 176/-2, 30 08:26:06 AOp 166/66 (104) 08:26:11 Signed By Eliezer Ruiz MD On 10/26/2018 9:15:15 AM Eliezer Ruiz MD
[2018-10-26] MEDS: Nitroglycerin Infusion 250 ML 3 MG IV (10:00)
[2018-10-26] MEDS: Ipratropium/Albuterol Sulfate 3 ML AMPUL.NEB INHALATION ×4 (12:07→22:45)
--- NOTE | 2018-10-26 12:20 | PN_ITS ---
Patient Problems: Active and Suspected Problems (Last Updated 10/23/18 @ 16:32 by Magno Sheppard DO) Acute respiratory failure with hypoxia (Acute) COPD exacerbation (Acute) Pneumonia, pneumococcal (Acute) NSTEMI (non-ST elevated myocardial infarction) (Acute) Congestive heart failure (Suspected) Subjective: The patient cardiac catheter today. Discussed with electrical tester Dr. Ruiz. Patient had PCI of circumflex artery. Patient blood pressure is elevated about 165/68. No shortness of breath, wheezing. Denies chest pain. Vitals/I&O's: Vital Signs Temp Pulse Resp BP Pulse Ox 97.9 F 62 21 H 163/73 H 97 10/26/18 05:54 10/26/18 11:00 10/26/18 11:00 10/26/18 11:00 10/26/18 11:00 Oxygen Flow Rate (L/min) 3 Oxygen Delivery Method Nasal Cannula Weight: 232 lb 9.403 oz Body Mass Index (BMI) 33.4 Intake and Output for Last 24 Hours 10/24/18 10/25/18 10/26/18 23:59 23:59 23:59 Intake Total 2261.50 / 2261.50 1546.00 / 1796.00 400 / 400 Output Total 1350 / 1350 1900 / 2500 1500 / 1500 Balance 911.50 / 911.50 -354.00 / -704.00 -1100 / -1100 General: Alert, Oriented x3, Cooperative HEENT: Atraumatic, PERRLA, EOMI, Normocephalic Neck: Supple, No JVD, Negative Carotid Bruits Lungs: Clear to auscultation, No rhonchi, No wheeze, No rales, Diminished - Air entry diminished in the right lung base. Cardiovascular: Regular rate, Regular Rhythm, Normal S1, Normal S2, No murmurs Abdomen: Bowel Sounds Present, Soft, Non Tender, Non-Distended Extremities: Capillary Refill Less than 3 Seconds, Edema Skin: No rashes, No breakdown, - - Right groin access for cardiac cath: No hematoma/bleeding. Musculoskeletal: No Tenderness to Palpation of Joints or Extremities, Arthritic Changes Neurological: Cranial nerves II-XII grossly intact, Deep Tendon Reflexes 2+/4 and Symmetrical, Neuro grossly intact Psych/Mental Status: Normal Affect, Appropriate Microbiology Past 72 Hours 10/23/18 19:50 Sputum, Expectorated/Coughed Gram Stain - Final 10/23/18 19:50 Sputum, Expectorated/Coughed Respiratory Culture - Final Mixed normal respiratory justina. No Streptococcus pneumoniae, beta-hemolytic Streptococcus or Staphylococcus aureus isolated. 10/23/18 16:05 Urine, Clean Catch Streptococcus pneumoniae Antigen (M - Final 10/23/18 16:05 Urine, Clean Catch Legionella Antigen - Final Laboratory Results 10/25/18 16:31: POC Glucose 366 H 10/25/18 21:38: POC Glucose 265 H 10/26/18 05:34: Sodium 137, Potassium 5.6 H, Chloride 105, Carbon Dioxide 25.0, Anion Gap 7, BUN 50 H, Creatinine 1.48 H, Estim Creat Clear Calc 43.79, Est GFR (MDRD) Af Amer 60, Est GFR (MDRD) Non-Af 49 L, BUN/Creatinine Ratio 33.8 H, Glucose 274 H, Calcium 8.5 10/26/18 05:34: PT 12.9, INR 1.0 10/26/18 06:33: POC Glucose 274 H 10/26/18 08:49: Activated Clotting Time 147 H Current Medications Acetaminophen (Tylenol) 650 mg PO Q6H PRN PRN PRN Reason: Mild pain 1-3/Temp > 100.7 F Al Hydroxide/Mg Hydroxide (Mylanta Ii) 30 ml PO Q6H PRN PRN PRN Reason: Gastric Burning Albuterol Sulfate (Ventolin Aerosols) 2.5 mg INHALATION Q2H PRN PRN PRN Reason: SHORTNESS OF BREATH Albuterol/Ipratropium (Duoneb) 3 ml INHALATION Q4H.RT [facility] Last Admin: 10/26/18 12:07 Dose: 3 ml Documented by: Aspirin (Ecotrin) 81 mg PO DAILY@0800 [facility] Last Admin: 10/26/18 05:56 Dose: 81 mg Documented by: Atorvastatin Calcium (Lipitor) 80 mg PO QHS [facility] Last Admin: 10/25/18 21:39 Dose: 80 mg Documented by: Atropine Sulfate () 0.5 mg IV UD PRN PRN Reason: HR <50 bpm Carvedilol (Coreg) 6.25 mg PO BID [facility] Cholecalciferol (Vitamin D) 1,000 unit PO DAILY [facility] Last Admin: 10/25/18 09:15 Dose: 1,000 unit Documented by: Clopidogrel Bisulfate (Plavix) 75 mg PO DAILY [facility] Last Admin: 10/26/18 05:56 Dose: 75 mg Documented by: Dextrose (D50w Syringe) 0 gm IV X1 PRN; Protocol PRN Reason: Hypoglycemia Furosemide (Lasix) 40 mg PO DAILY [facility] Glucagon () 1 mg IM .X1 PRN PRN Reason: Hypoglycemia Heparin Sodium (Beef Lung) (Heparin 500 Unit/5 Ml (100/Ml)) 500 unit IV UD PRN PRN Reason: HEPARIN FLUSH Heparin Sodium (Porcine) (Heparin Na) 0 unit IV UD PRN; Protocol Ceftriaxone Sodium (Rocephin) 1 gm in 50 mls @ 100 mls/hr IV Q24 [facility] Last Infusion: 10/25/18 09:45 Dose: Infused Documented by: Sodium Chloride () 250 mls @ 15 mls/hr IV .[id number] PRN PRN Reason: SALINE FLUSH Sodium Chloride () 1,000 mls @ 0 mls/hr IV .Q0M MITRA Nitroglycerin/Dextrose () 250 mls @ 3 mls/hr IV .[id number] [facility]; Protocol Insulin Glargine (Lantus (Bk)) 25 units SC BID [facility] Last Admin: 10/25/18 21:40 Dose: 25 u Documented by: Insulin Human Lispro (Humalog Kwikpen (Bkc)) 0 unit SC ACHS [facility]; Protocol Last Admin: 10/26/18 10:04 Dose: Not Given Documented by: Insulin Human Lispro (Humalog Kwikpen (Bk)) 18 unit SC TIDAC [facility] Last Admin: 10/26/18 10:04 Dose: Not Given Documented by: Labetalol HCl (Trandate) 5 mg IV X1 PRN PRN Reason: SBP > 160 when pulling sheath Lorazepam (Ativan) 1 mg PO Q6H PRN PRN PRN Reason: BACK SPASMS/ANXIETY Losartan Potassium (Cozaar) 25 mg PO DAILY [facility] Magnesium Oxide (Mag-Ox 400) 400 mg PO DAILY [facility] Last Admin: 10/25/18 09:15 Dose: 400 mg Documented by: Melatonin (Melatonin) 3 mg PO QHS PRN PRN PRN Reason: INSOMNIA Last Admin: 10/25/18 21:42 Dose: 3 mg Documented by: Methylprednisolone (Solu-Medrol) 40 mg IV Q12 [facility] Last Admin: 10/25/18 21:40 Dose: 40 mg Documented by: Metoclopramide HCl (Reglan) 5 mg IV Q6H PRN PRN PRN Reason: NAUSEA/VOMITING Montelukast Sodium (Singulair) 10 mg PO DAILY [facility] Last Admin: 10/25/18 09:15 Dose: 10 mg Documented by: Morphine Sulfate () 2 mg IV Q4H PRN PRN PRN Reason: Mild back pain (0-2/10) Nitroglycerin (Nitrostat) 0.4 mg SUBLINGUAL Q5M PRN PRN Reason: CARDIAC/CHEST PAIN Ondansetron HCl (Zofran) 4 mg IV Q8H PRN PRN PRN Reason: NAUSEA/VOMITING Oxycodone HCl (Oxyir) 5 mg PO Q4H PRN PRN PRN Reason: Moderate Pain (4-6/10) Sodium Chloride ([place] Nasal [place]) 1 spray NASAL BID PRN PRN PRN Reason: CONGESTION Last Admin: 10/24/18 14:45 Dose: 1 spray Documented by: Sodium Chloride () 10 - 40 ml IV UD PRN PRN Reason: SALINE FLUSH Last Admin: 10/25/18 21:41 Dose: 10 ml Documented by: Sodium Chloride () 500 ml IV BOLUS PRN PRN Reason: VASO-VAGAL PROTOCOL Throat Lozenges (Cepacol Sore Throat Lozenge) 1 lozenge MUCOUS MEM Q2H PRN PRN PRN Reason: Sore Throat/Cough Medical Necessity - Tobacco Use Smoking Status: Former smoker - quit 12 years ago Tobacco Use: Non-smoker Assessment/Plan All Active Problems (Last Updated 10/23/18 @ 16:32 by Magno Sheppard DO) Acute respiratory failure with hypoxia (Acute) COPD exacerbation (Acute) Pneumonia, pneumococcal (Acute) NSTEMI (non-ST elevated myocardial infarction) (Acute) This is a 73 gentleman with history of COPD, CKD stage III,.is mellitus type II, coronary artery disease and chronic hypoxic respiratory failure was admitted with acute onset of shortness of breath for past few days. Patient pulse ox was found in 70s. Patient had elevated troponin 2.2. CT scan chest shows right lower lobe infiltrate. The patient was diagnosed acute on chronic hypoxic respiratory failure secondary to right lower lobe pneumonia, non-STEMI and was admitted in PCU. He was started on aspirin, Plavix, IV heparin drip and ceftriaxone and Zithromax. Patient had cardiac cath in the morning for non-STEMI and stenting circumflex and transferred to ICU. 1. acute on chronic hypoxic respiratory failure-patient currently on 3 L of oxygen, pulse ox 97%. #2 COPD exacerbation secondary to right lower lobe community-acquired pneumonia: Patient assessment at the time of admission and that after was not found consistent with severe sepsis or septic shock. Patient had 4 days of azithromycin to start. Continue ceftriaxone. Continue bronchodilator, incentive spirometry, chest physiotherapy and steroid. #3 acute non-STEMI with history of coronary artery status post CABG and stent: Patient had cardiac cath in the morning. Patient had ODILON WITH PCI of distal left circumflex with AMANDA FLOW 75% to 0%. EF by LV gram 50%. Depressed LV systolic function. Inferior mid hypokinesis: Mild to moderate. Mid LAD occl uded. Previous stent in an septal tattoo technician. But upstream 75% stenosis. RCA occluded with graft. Echo on 10/24 shows EF 40 to 45% with stage I diastolic dysfunction. RVSP [address] Ruiz recommended stress test as an outpatient in 2 to 3 weeks and further decide about tattoo technician stenosis regarding PCI #4 type 2 diabetes test: Blood sugars are elevated mainly secondary to Solu- Medrol. Solu-Medrol discontinued. Started on prednisone. Adjust insulin accordingly. #5 chronic kidney disease stage III secondary to type 2 diabetes #6 history of ventricular tachycardia-patient has an ICD which was placed years ago DVT prophylaxis: On bilateral SCD. Heparin drip was discontinued prior to cardiac cath. Continue Lovenox DVT prophylaxis dose after 24 hours of cardiac cath. Code Visit Inpatient E&M: [id number] [facility] Hosp L3
[2018-10-26 12:21] LABS: Bedside Glucose 276 mg/dL (70-110)
[2018-10-26] MEDS: Montelukast 10 MG Tablet PO (12:25)
[2018-10-26] MEDS: Furosemide 40 MG Tablet PO (12:25)
[2018-10-26] MEDS: Carvedilol 6.25 MG Tablet PO ×2 (12:25→21:27)
[2018-10-26] MEDS: Losartan Potassium 25 MG Tablet PO (12:25)
[2018-10-26] MEDS: Insulin Lispro 100 UNIT/ML INSULN.PEN 18 UNIT SC ×2 (12:26→18:06)
[2018-10-26] MEDS: Magnesium Oxide 400 MG Tablet PO (12:26)
[2018-10-26] MEDS: Insulin Lispro 100 UNIT/ML INSULN.PEN SC ×3 (12:27→21:29)
[2018-10-26] MEDS: Ceftriaxone 1 GM/50 ML BAG IV (12:56)
--- NOTE | 2018-10-26 13:31 | PCM.PN.PUL ---
Patient Problems: Active and Suspected Problems (Last Updated 10/26/18 @ 15:52 by Krys Martinez) Acute respiratory failure with hypoxia (Acute) COPD exacerbation (Acute) Pneumonia, pneumococcal (Acute) NSTEMI (non-ST elevated myocardial infarction) (Acute) Congestive heart failure (Suspected) Subjective: The patient was seen and examined at the bedside this morning. Events from the last 24 hours have been reviewed. The patient is currently afebrile, hemodynamically stable and maintaining appropriate oxygen saturations on 3 L/min via nasal cannula. The patient underwent successful drug-eluting stent placement to his distal left circumflex this morning. He does report overall improvement in his breathing quality since being admitted to the hospital. Objective: The patient's most recent lab work, culture data and imaging studies have all been personally reviewed. Surface echocardiogram revealed evidence of combined systolic and diastolic dysfunction with an ejection fraction of 45 to 50%. Right ventricular systolic pressure was estimated to be 35 mmHg. Strep and urine Legionella antigens were both negative. Sputum culture appears to be normal respiratory justina. - Physical Exam General: Alert, Oriented x3, Cooperative, No apparent distress HEENT: Atraumatic, PERRLA, Normocephalic Oral: No Gingival or Mucosal Lesions/ Ulcerations Neck: Supple, No Nodes, Trachea Midline Lungs: No rhonchi, No wheeze, No rales, Diminished Cardiovascular: Regular rate, Regular Rhythm, Normal S1, Normal S2, Murmur Abdomen: Bowel Sounds Present, Soft, Non Tender, Obese Extremities: No clubbing, No cyanosis, Edema Skin: No breakdown Musculoskeletal: No Tenderness to Palpation of Joints or Extremities, No Muscle Wasting Lymphatic: No Cervical, Supraclavicular, or Inguinal Adenopathy Neurological: Cranial nerves II-XII grossly intact, Neuro grossly intact Psych/Mental Status: Alert and oriented to time, place, person, mood and affect Vital Signs Temp Pulse Resp BP Pulse Ox 97.9 F 62 21 H 142/53 H 97 10/26/18 05:54 10/26/18 11:00 10/26/18 11:00 10/26/18 13:00 10/26/18 11:00 Oxygen Flow Rate (L/min) 3 Oxygen Delivery Method Nasal Cannula Weight: 232 lb 9.403 oz Body Mass Index (BMI) 33.4 Intake and Output for Last 24 Hours 10/24/18 10/25/1819 23:59 23:59 23:59 Intake Total 2261.50 / 2261.50 1546.00 / 1796.00 616.50 / 616.50 Output Total 1350 / 1350 1900 / 2500 1850 / 1850 Balance 911.50 / 911.50 -354.00 / -704.00 -1233.50 / -1233.50 Microbiology Past 72 Hours 10/23/18 19:50 Gram Stain - Final Sputum, Expectorated/Coughed Respiratory Culture - Final Mixed normal respiratory justina. No Streptococcus pneumoniae, beta-hemolytic Streptococcus or Staphylococcus aureus isolated. 10/23/18 16:05 Streptococcus pneumoniae Antigen (M - Final Urine, Clean Catch 10/23/18 16:05 Legionella Antigen - Final Urine, Clean Catch Laboratory Tests Past 24 Hrs 10/26/18 10/26/18 10/26/18 05:34 05:34 08:49 PT 12.9 INR 1.0 Activated Clotting Time 147 H Sodium 137 Potassium 5.6 H Chloride 105 Carbon Dioxide 25.0 Anion Gap 7 BUN 50 H Creatinine 1.48 H Estim Creat Clear Calc 43.79 Est GFR (MDRD) Af Amer 60 Est GFR (MDRD) Non-Af 49 L BUN/Creatinine Ratio 33.8 H Glucose 274 H Calcium 8.5 POC Glucose 10/26/18 10/26/18 10/25/18 12:13 06:33 21:38 POC Glucose 276 H 274 H 265 H 10/25/18 16:31 POC Glucose 366 H Clinical Impression(s) from Imaging Studies Chest X-Ray 10/25/18 05:15 IMPRESSION: Interstitial lung disease with areas of hyperinflation, compression of basilar parenchyma slightly more pronounced right compared to the left base. If there is clinical concern for pneumonia, follow-up examination right base is recommended. Mild vascular prominence could be chronic in nature. Postsurgical changes, atherosclerosis, osteoporosis felt to be nonacute findings. Electronically Signed: Maddison Apodaca MD at 6:16 EDT , Service support , Medical Necessity - Tobacco Use Smoking Status: Former smoker - quit 12 years ago Tobacco Use: Non-smoker Assessment/Plan All Active Problems (Last Updated 10/26/18 @ 15:52 by Krys Martinez) Acute respiratory failure with hypoxia (Acute) COPD exacerbation (Acute) Pneumonia, pneumococcal (Acute) NSTEMI (non-ST elevated myocardial infarction) (Acute) RECOMMENDATIONS: 1. Continue bronchodilators and prednisone. 2. Continue antibiotics with plans to complete a 7-day treatment course. 3. Wean supplemental oxygen to maintain saturations at or above 90%. 4. Encourage incentive spirometer use and mobilize patient as tolerated. IMPRESSIONS: 1. Acute on chronic hypoxic respiratory failure Likely multifactorial etiology. Patient may have a component of cor pulmonale/CHF secondary to noncompliance with supplemental oxygen at baseline. Patient does have an extensive smoking history in the right lower lobe infiltrate suggestive of an acute exacerbation of COPD secondary to community-acquired pneumonia. Plan at this time to complete a 7-day treatment course of antibiotics. Continue bronchodilators and prednisone, with plans for a taper at discharge. Continue Lasix as ordered. Patient will need to complete pulmonary function test and walking oximetry as an outpatient. 2. Non-ST elevation myocardial infarction/coronary artery disease Clinical suspicion for troponin elevation secondary to prolonged hypoxemia more than an acute event. The patient did undergo cardiac catheterization with subsequent drug-eluting stent placement to the left circumflex. Continue ongoing medical therapy per cardiology recommendations. 3. CKD stage III/diabetes mellitus type 2/obesity/advanced age Complicates care, management, recovery and prognosis. Patient may benefit from evaluation of obstructive sleep apnea as an outpatient. This note was generated with [employer] dictation software. It may contain incorrect words, spelling, and punctuation that were not noted in checking the note before signing. Code Visit Inpatient E&M: [id number] [facility] Hosp L2
--- NOTE | 2018-10-26 14:02 | CRPHASE1 ---
Patient Communication PHII Cardiac Rehab Discussed with Patient:: Yes Guide to Cardiac Rehab Given to Patient:: Yes Cardiac Rehab Facility Choice List Given to Patient:: Yes - [facility] Choice Program Other:: Communication Given to CR, With permission faxed order and referral information - [facility] [employer] Envelope Maker Hand:: Eliezer Ruiz PCP:: [facility] Refer Phase II Cardiac Rehab:: Yes - [facility] Sessions:: 36 sessions - 3 days/wk, 12 weeks Phase I Charge:: Level I - Education Risk Factors/Lifestyle Smoking Status: Former smoker Hx Hypertension: Yes Hx Diabetes Mellitus Type 2: Yes Hx Dyslipidemia: Yes Hx Obesity: Yes Family History: Family History (Last Updated 10/23/18 @ 16:33 by Magno Sheppard DO) Other COPD (chronic obstructive pulmonary disease) Family History: Diabetes Past Cardiac Illness: Coronary Artery Bypass Graft Laboratory Values: Cardiac Rehab Phase I Labs Hemoglobin A1c 7.2 % (4.2-6.3) H 10/24/18 07:40 Triglycerides 141 mg/dL (-199) 10/25/18 05:03 Cholesterol 157 mg/dL (200) 10/25/18 05:03 LDL Cholesterol 84 mg/dL (0-130) 10/25/18 05:03 HDL Cholesterol 45 mg/dL (40-) 10/25/18 05:03 Phase I Education Given On:: [place], Nutrition, Antiplatelet medication, CHF, Diabetes - Type II Issues Affecting Care:: None Knowledge of Condition:: Yes Learning Preferences: Verbal, Written, Audio/Visual, Demonstration Medical/Surgical History CAD:: Yes COPD:: Yes Diabetes Type II:: Yes Renal:: Yes - CKD stage 3 Other Medical/Surgical Issues:: acute resp failure, pneumonia. CABG: Yes Cardiac Rehabilitation Info Cardiac Rehabilitation Program Information: Cardiac Rehabilitation is important for patients like you who are recovering from a heart problem. Cardiac rehabilitation programs are recognized as integral to the continued care of the patient with coronary heart disease. The cardiac rehabilitation program is designed to optimize a patient's physical, psychological, and social functioning. Health director of healthcare systems work in cardiac rehabilitation programs and assist you with getting the treatments you need to get stronger and healthier - like exercise, healthy eating habits, and medications. Cardiac rehabilitation has been show to help people with heart problems live longer and have better life enjoyment than people who do not go to cardiac rehabilitation. Please contact the Cardiac Rehabilitation Program at [facility] at in two weeks if you have not heard from them.
--- NOTE | 2018-10-26 14:08 | CRPH1.INST_ITS ---
General Education CAD and cardiac anatomy and function:: Patient communicates acknowledgment, Needs reinforcement Explanation of diagnoses and procedures:: Patient communicates acknowledgment, Needs reinforcement Sign/Symptoms of SD:: Patient communicates acknowledgment, Needs reinforcement Antiplatelet therapy: Patient communicates acknowledgment, Needs reinforcement Proper use of NTG-SL: Patient communicates acknowledgment, Needs reinforcement Emergency procedures and activation of EMS: Patient communicates acknowledgment, Needs reinforcement Compliance of all prescribed medications: Patient communicates acknowledgment, Needs reinforcement Smoking Patient Nicotine/Smoking Risk Factors Are:: Never smoked - quit 12 years ago. Recommendations Include:: Previous smoker; encourage continued cessation Nicotine/Smoking Response Code:: Patient communicates acknowledgment, Needs reinforcement Dyslipidemia Patient Dyslipidemia Risk Factors Are:: Total Cholesterol, Triglycerides, HDL, LDL Recommendations Include:: Lipid profile provided, Reviewed NCEP/ATP guidelines, Therapeutic Lifestyle Change dietary guidelines Dyslipidemia Response Code:: Patient communicates acknowledgment, Needs reinforcement Overweight/Obesity Patient Overweight/Obesity Risk Factors Are:: Obesity - > or = 30 Recommendations Include:: Weight loss of 5-10%, Reduced calorie diet, Exercise 5-7 times/week Overweight/Obesity:: Patient communicates acknowledgment, Needs reinforcement Hypertension Recommendations Include:: BP <130/80 if diabetic, DASH dietary guidelines, Decrease/maintain normal body weight, Moderation of ETOH Hypertension:: Patient communicates acknowledgment, Needs reinforcement Heart Disease Patient Heart Disease Risk Factors Are:: Family history of heart disease < 65 years old, Previous cardiac event Recommendations Include:: Educated family members of their risk, Educated family members of importance of prevention of heart disease Heart Disease Response Code:: Patient communicates acknowledgment, Needs reinforcement Diabetes Recommendations Include:: Maintain fasting blood sugars 70-110 md/dL, Maintain HgbA1c of 6% or less, Monitor blood sugar as prescribed, Diabetic dietary guidelines, Decrease/maintain body weight Diabetes:: Patient communicates acknowledgment, Needs reinforcement Metabolic Syndrome Recommendations Include:: Patient is diabetic Metabolic Syndrome Response Code:: Not instructed Sedentary Patient Sedentary Risk Factors Are:: Lack of regular exercise Recommendations Include:: Aerobic exercise 5-7 times/week for 20-30 minutes continuously, Benefits of regular exercise, Discussed home walking program, Monitored Outpatient Cardiac Rehab Sedentary Response Code:: Patient communicates acknowledgment, Needs reinfor cement Stress Patient Stress Risk Factors Are:: Patient denies stress as a risk factor Stress Response Code:: Patient communicates acknowledgment, Needs reinforcement
[2018-10-26] MEDS: hydrALAZINE 25 MG Tablet PO ×2 (14:56→21:27)
--- NOTE | 2018-10-26 16:19 | CASEMGMT ---
BRIAN CM Note. Faxes from weekend did not go through. Refaxed clinical to [facility] @ and [facility] Transfer [facility] @ . Successful transmission form returned. Elizabeth JIANG RN ACM
[2018-10-26 16:50] LABS: Bedside Glucose 250 mg/dL (70-110)
[2018-10-26] MEDS: Atorvastatin Calcium 80 MG Tablet PO (21:27)
[2018-10-26 21:40] LABS: Bedside Glucose 180 mg/dL (70-110)
[2018-10-27] VITALS (17 sets, daily range): BP systolic 149–170; BP diastolic 45–73; PULSE 55–74; RESP 10–22; TEMP 36.6; O2SAT 91–95
[2018-10-27] MEDS: Ipratropium/Albuterol Sulfate 3 ML AMPUL.NEB INHALATION ×2 (03:05→06:54)
[2018-10-27 04:30] LABS: Hematocrit 48.4 % (40-54); Hemoglobin 15.8 g/dL (13.0-16.5); Mean Corp Hgb Conc 32.6 g/dL (32-36); Mean Corpuscular Hgb 30.6 pg (27.0-32.0); Mean Corpuscular Volume 93.6 fL (80-94); Mean Platelet Vol. 9.2 fl (6.2-12.0); Platelet Count 192 K/mm3 (150-450); RBC Distribution Width CV 13.4 % (11.6-14.6); RBC Distribution Width SD 46.6 fl (35.1-43.9); Red Blood Count 5.17 M/mm3 (4.6-6.2); White Blood Count 17.4 K/mm3 (4.4-11.0)
[2018-10-27 04:48] LABS: ALB/GLOB Ratio 0.8 RATIO (0.9-2.4); AST(SGOT) 19 U/L (15-37); Alanine Aminotransfer ALT/SGPT 23 U/L (16-61); Albumin, Serum 2.6 g/dL (3.2-5.0); Alkaline Phosphatase 65 U/L (45-117); Anion Gap 4 (5-15); BUN 47 mg/dL (7-18); BUN/Creat Ratio 34.8 RATIO (10-20); Calcium,Total 8.6 mg/dL (8.5-10.1); Chloride 103 mmol/L (98-107); Creatinine, Serum 1.35 mg/dL (0.70-1.30); EST Glomerular Filtration Rate 55 mL/min (>60); Est Glom Filt Rate - Afr Amer 66 mL/min (>60); Estimated Creatinine Clearance 48.01 ml/min; Globulin 3.3 g/dL (2.2-4.2); Glucose 200 mg/dL (74-106); Potassium 5.6 mmol/L (3.5-5.1); Protein, Total 5.9 g/dL (6.4-8.2); Sodium Level 139 mmol/L (136-145)
[2018-10-27] MEDS: hydrALAZINE 25 MG Tablet PO (06:28)
--- NOTE | 2018-10-27 06:55 | PN_ITS ---
Subjective: The patient was seen and examined at the bedside this morning. Events from the last 24 hours have been reviewed. The patient is currently afebrile, hemodynamically stable and maintaining appropriate oxygen saturations on 3 L/min via nasal cannula. The patient is currently documented to be overall net -1.2 L for the admission. He remains on daily p.o. Lasix. Creatinine remains stable at 1.35. Objective: The patient's most recent lab work, culture data and imaging studies have all been personally reviewed. Surface echocardiogram revealed evidence of combined systolic and diastolic dysfunction with an ejection fraction of 45 to 50%. Right ventricular systolic pressure was estimated to be 35 mmHg. Strep and u rine Legionella antigens were both negative. Sputum culture appears to be normal respiratory justina. - Physical Exam General: Alert, Cooperative, No apparent distress HEENT: Atraumatic, PERRLA, Normocephalic Oral: No Gingival or Mucosal Lesions/ Ulcerations Neck: Supple, No Nodes, Trachea Midline Lungs: No rhonchi, No wheeze, No rales, Diminished Cardiovascular: Regular rate, Regular Rhythm, Normal S1, Normal S2, Murmur Abdomen: Bowel Sounds Present, Soft, Non Tender, Obese Extremities: No clubbing, No cyanosis Skin: No breakdown Musculoskeletal: No Tenderness to Palpation of Joints or Extremities, No Muscle Wasting Lymphatic: No Cervical, Supraclavicular, or Inguinal Adenopathy Neurological: Cranial nerves II-XII grossly intact, Neuro grossly intact Psych/Mental Status: Alert and oriented to time, place, person, mood and affect Vital Signs Temp Pulse Resp BP Pulse Ox 97.9 F 60 18 149/45 H 95 10/27/18 00:00 10/27/18 06:28 10/27/18 06:00 10/27/18 06:00 10/27/18 06:00 Oxygen Flow Rate (L/min) 3 Oxygen Delivery Method Nasal Cannula Weight: 230 lb 13.184 oz Body Mass Index (BMI) 33.4 Intake and Output for Last 24 Hours 10/25/18 10/26/18 10/27/18 23:59 23:59 23:59 Intake Total 1546.00 / 1796.00 1867.25 / 1867.25 225 / 225 Output Total 1900 / 2500 3920 / 3920 1275 / 1275 Balance -354.00 / -704.00 -2052.75 / -2051.75 -1050 / -1050 Microbiology Past 72 Hours 10/23/18 19:50 Gram Stain - Final Sputum, Expectorated/Coughed Respiratory Culture - Final Mixed normal respiratory justina. No Streptococcus pneumoniae, beta-hemolytic Streptococcus or Staphylococcus aureus isolated. Laboratory Tests Past 24 Hrs 10/26/18 10/27/18 10/27/18 08:49 04:25 04:25 WBC 17.4 H RBC 5.17 Hgb 15.8 Hct 48.4 MCV 93.6 MCH 30.6 MCHC 32.6 RDW Std Deviation 46.6 H RDW Coeff of Momo 13.4 Plt Count 192 MPV 9.2 Activated Clotting Time 147 H Sodium 139 Potassium 5.6 H Chloride 103 Carbon Dioxide 32.0 Anion Gap 4 L BUN 47 H Creatinine 1.35 H Estim Creat Clear Calc 48.01 Est GFR (MDRD) Af Amer 66 Est GFR (MDRD) Non-Af 55 L BUN/Creatinine Ratio 34.8 H Glucose 200 H Calcium 8.6 Total Bilirubin 0.40 AST 19 ALT 23 Alkaline Phosphatase 65 Total Protein 5.9 L Albumin 2.6 L Globulin 3.3 Albumin/Globulin Ratio 0.8 L POC Glucose 10/26/18 10/26/18 10/26/18 21:22 16:29 12:13 POC Glucose 180 H 250 H 276 H Clinical Impression(s) from Imaging Studies Chest X-Ray 10/25/18 05:15 IMPRESSION: Interstitial lung disease with areas of hyperinflation, compression of basilar parenchyma slightly more pronounced right compared to the left base. If there is clinical concern for pneumonia, follow-up examination right base is recommended. Mild vascular prominence could be chronic in nature. Postsurgical changes, atherosclerosis, osteoporosis felt to be nonacute findings. Electronically Signed: Maddison Apodaca MD at 6:16 EDT , Service support , Medical Necessity - Tobacco Use Smoking Status: Former smoker Tobacco Use: Non-smoker Assessment/Plan All Active Problems (Last Updated 10/26/18 @ 15:52 by Krys Martinez) Acute respiratory failure with hypoxia (Acute) COPD exacerbation (Acute) Pneumonia, pneumococcal (Acute) NSTEMI (non-ST elevated myocardial infarction) (Acute) RECOMMENDATIONS: 1. Continue bronchodilators and prednisone. 2. Continue antibiotics with plans to complete a 7-day treatment course. 3. Wean supplemental oxygen to maintain saturations at or above 90%. 4. Encourage incentive spirometer use and mobilize patient as tolerated. IMPRESSIONS: 1. Acute on chronic hypoxic respiratory failure Likely multifactorial etiology. Patient may have a component of cor pulmo nale/CHF secondary to noncompliance with supplemental oxygen at baseline. Patient does have an extensive smoking history in the right lower lobe infiltrate suggestive of an acute exacerbation of COPD secondary to community- acquired pneumonia. Plan at this time to complete a 7-day treatment course of antibiotics. Continue bronchodilators and prednisone, with plans for a taper at discharge. Continue Lasix as ordered. Patient will need to complete pulmonary function test and walking oximetry as an outpatient. 2. Non-ST elevation myocardial infarction/coronary artery disease Clinical suspicion for troponin elevation secondary to prolonged hypoxemia more than an acute event. The patient did undergo cardiac catheterization with subsequent drug-eluting stent placement to the left circumflex. Continue ongoing medical therapy per cardiology recommendations. 3. CKD stage III/diabetes mellitus type 2/obesity/advanced age Complicates care, management, recovery and prognosis. Patient may benefit from evaluation of obstructive sleep apnea as an outpatient. This note was generated with [email or web address] dictation software. It may contain incorrect words, spelling, and punctuation that were not noted in checking the note before signing. Code Visit Inpatient E&M: 14904 Subs Hosp L2
[2018-10-27 07:30] LABS: Bedside Glucose 197 mg/dL (70-110)
[2018-10-27] MEDS: Magnesium Oxide 400 MG Tablet PO (08:38)
[2018-10-27] MEDS: Aspirin E.C. 81 MG Tablet PO (08:38)
[2018-10-27] MEDS: predniSONE 20 MG Tablet 40 MG PO (08:38)
[2018-10-27] MEDS: Insulin Lispro 100 UNIT/ML INSULN.PEN 18 UNIT SC (08:41)
[2018-10-27] MEDS: Insulin Lispro 100 UNIT/ML INSULN.PEN SC (08:41)
[2018-10-27] MEDS: Sodium Polystyrene Sulfonate 15 GM/60 ML UDC PO (08:46)
--- NOTE | 2018-10-27 08:59 | PN.CARD_ITS ---
Subjectve: Patient feeling much better this morning. No 24-hour events. Telemetry negative. Right groin is clean/dry/intact. Hemoglobin and creatinine within nominal limits. Objective: Vital Signs Temp Pulse Resp BP Pulse Ox 97.8 F 63 18 154/64 H 93 10/27/18 08:00 10/27/18 08:00 10/27/18 08:00 10/27/18 08:00 10/27/18 08:00 Oxygen Flow Rate (L/min) 2 Oxygen Delivery Method Nasal Cannula Weight: 230 lb 13.184 oz Body Mass Index (BMI) 33.4 Intake and Output for Last 24 Hours 10/25/18 10/26/18 10/27/18 23:59 23:59 23:59 Intake Total 1546.00 / 1796.00 1867.25 / 1867.25 225 / 225 Output Total 1900 / 2500 3920 / 3920 1275 / 1275 Balance -354.00 / -704.00 -2052.75 / -2052.75 -1050 / -1050 General: Awake, Alert, Oriented x 3 HEENT: PERRL, EOMI, Sclera Non Icteric Neck: Supple, Good ROM, No Lymph Node Enlargement Lungs: Clear to auscultation Cardiovascular: Regular Rhythm, Normal S1, Normal S2, No Murmurs, No Rubs, No Gallops Vascular: No Carotid Bruits, Normal Femoral Pulses, Normal Radial Pulses, Normal Dorsalis Pedal Pulse, Normal Posterior Tibial Pulses Abdomen: Bowel Sounds Present, Soft, Non Tender, No HSM, No Organomegaly Extremities: No Cyanosis, No Clubbing, No edema Neurological: No Focal Motor or Sensory Deficit 10/27/18 04:25: WBC 17.4 H, RBC 5.17, Hgb 15.8, Hct 48.4, MCV 93.6, MCH 30.6, MCHC 32.6, Plt Count 192, MPV 9.2 10/27/18 04:25: Sodium 139, Potassium 5.6 H, Chloride 103, Carbon Dioxide 32.0, Anion Gap 4 L, BUN 47 H, Creatinine 1.35 H, Est GFR (MDRD) Af Amer 66, Est GFR (MDRD) Non-Af 55 L, BUN/Creatinine Ratio 34.8 H, Glucose 200 H, Calcium 8.6, Total Bilirubin 0.40 Rhythm: EKG: ECHO: Stress Test: Cardiac Cath: PCI: CT Surgery: Holter monitor: EPS: PPM: CXR: Chest CT Scan: Medical Necessity - Tobacco Use Smoking Status: Former smoker Tobacco Use: Non-smoker Assessment/Plan 1. Coronary artery disease: The patient is status post three-vessel bypass surgery at [facility] [place], with subsequent catheterizations both at [facility] as well as an [facility]. He reportedly has had stents placed in the [facility] with subsequent catheterizations at [facility]. I recommend the patient continue baby aspirin, Plavix 75 mg a day, and we could discontinue his IV heparin as he has been chest pain-free for 48 hours, and his troponins are trending downwards. I have reviewed the records from the [facility] and apparently the patient had three-vessel bypass surgery with a SINGH to the LAD, a saphenous vein graft to the RCA, and a saphenous vein graft to the posterior lateral branch of the left circumflex. In addition in 2005 he underwent drug-eluting Taxus stent to the RCA at an outside hospital in the [facility]. His most recent echocardiogram was in July 2018 which demonstrated intact LV function which is different than his LV function obtained on the echocardiogram from this admission. His echocardiogram from 10/24/2018 is as follows: Interpretation Summary Mild concentric left ventricular hypertrophy. The estimated ejection fraction is 45-50 %. Stage 1 diastolic dysfunction. Infero-Basal: Mildly hypokinetic Posterior-Basal: Mildly hypokinetic Trivial tricuspid valve insufficiency. Right ventricular systolic pressure estimated to be 35 mmHg. Fusion of the right and left coronary cusps Moderate to severe aortic stenosis, but may be underestimated due to reduced LV function. Calculated aortic valve area (continuity equation) is 1.1 cm2. Trivial aortic valve insufficiency. There is no comparison study available. Given his coronary artery disease and bypass surgery and now with his LV dysfunction, I recommend that he continue his baby aspirin, Plavix, metoprolol, and that we start Cozaar 25 mg p.o. daily. Patient underwent repeat catheterization on 10/26/2018 demonstrated 2 out of 3 bypass grafts were occluded. His SINGH to the LAD was patent. We were unable to locate his saphenous vein graft to his circumflex system despite an ascending aortic root angiogram. Patient underwent successful angioplasty and drug- eluting stent to the mid left circumflex receiving a 2.25X 20 Promus Synergy stent, postdilated proximally to 2.5 mm. In addition the patient was also found to have a possibly significant stenosis upstream from a stent that is been placed in the septal smog technician. This morning the patient feels much better after angioplasty, and is doing quite well. His right groin is clean/dry/intact. He has no hematoma or bruit. I recommend the patient undergo a treadmill echocardiogram in 2 to 3 weeks time to evaluate his stenosis upstream from the septal smog technician stent. If he has any evidence of anterior septal or inferior septal ischemia, I have a low threshold to bring the patient back for elective intervention of the stenotic area. If his stress test is negative, I would recommend continued medical management. 2. Hyperlipidemia: Recommend obtaining a fasting lipid profile. Continue Crestor. 3. Thank you very much for the opportunity to participate in the cardiac care of your patient. Patient may be discharged home from a cardiac standpoint follow-up with Dr. Ruiz going forward. Once he is recovered from his pneumonia he will undergo a stress test to evaluate his anteroseptal area. Code Visit Inpatient E&M: 11319 Subs Hosp L2
--- NOTE | 2018-10-27 09:31 | PCM.PN.BLA ---
Progress Note Patient will undergo a stress echocardiogram in approximately 2 weeks. He will follow-up with Dr. Ruiz on 12/04/2018 at 10 AM. If there are any questions or concerns after discharge please call the [facility] at [phone].
[2018-10-27] MEDS: Clopidogrel Bisulfate 75 MG Tablet PO (09:40)
[2018-10-27] MEDS: Furosemide 40 MG Tablet PO (09:40)
[2018-10-27] MEDS: Montelukast 10 MG Tablet PO (09:40)
[2018-10-27] MEDS: Losartan Potassium 25 MG Tablet PO (09:40)
[2018-10-27] MEDS: Carvedilol 6.25 MG Tablet PO (09:41)
--- NOTE | 2018-10-27 09:43 | PCM.DC ---
- Discharge Diagnoses Current Active Problems: Current Active and Chronic Problems (Last Updated 10/26/18 @ 15:52 by Krys Martinez) S/P CABG x 3 (Chronic 1998) [facility] 1998, report not available as of 10/26/2018 Atherosclerosis of coronary artery bypass graft(s) without angina pectoris (Chronic) Successful PTCA/ODILON distal LCX with a 2.25 x 20 Promus Synergy stent,10/26/[address] [facility] Patient is also status post three-vessel bypass surgery at [facility] in 1998, with subsequent catheterizations and stents over the last 5 years, the specifics of which are difficult to interpret Atherosclerosis of coronary artery of [place] heart (Chronic) Successful PTCA/ODILON distal LCX with a 2.25 x 20 Promus Synergy stent,10/26/[address] [facility] Patient is also status post three-vessel bypass surgery at [facility] in 1998, with subsequent catheterizations and stents over the last 5 years, the specifics of which are difficult to interpret Stented coronary artery (Chronic 10/26/18) Successful PTCA/ODILON distal LCX with a 2.25 x 20 Promus Synergy stent,10/26/[address] [facility] Acute respiratory failure with hypoxia (Acute) COPD exacerbation (Acute) Pneumonia, pneumococcal (Acute) NSTEMI (non-ST elevated myocardial infarction) (Acute) You will use the following diet at home:: Calorie/Carbohydrate Controlled (specify 1200, 1400, etc) - 1800 ADA diet, Cardiac Your food should be the consistency of: Regular Discharge Activity: May Not Drive Weight Bearing Status: Weight bearing as tolerated Additional Instructions: Patient will undergo a stress echocardiogram in approximately 2 weeks. Allergies/Adverse Reactions: Allergies No Known Allergies Allergy (Verified 10/21/15 19:24) Medications to take at Discharge Albuterol Inhaler [Ventolin Hfa] 2 puff INHALATION Q4H PRN PRN 06/05/16 Aspirin [Lo-Dose Aspirin EC] 81 mg PO DAILY 06/05/16 Budesonide Inhaler 180 mcg [Pulmicort Inhaler 180 mcg] 2 puff INHALATION BID 06/05/16 Cholecalciferol (VIT D3) [Vitamin D3] 1,000 unit PO DAILY 06/05/16 Insulin Aspart [Novolog Vial] See Protocol SQ ACHS 06/05/16 Insulin Glargine [Lantus SoloStar Pen] 30 units SC BID 06/05/16 Montelukast [Singulair] 10 mg PO QHS 06/05/16 Rosuvastatin Calcium [Crestor] 40 mg PO QHS 06/05/16 Sodium Chloride 0.65% [[place] Nasal [place]] 2 sprays NARES 4X/DAY PRN PRN 06/05/16 Carvedilol [Coreg (Beta Suzanne)] 6.25 mg PO BID #60 tab 10/27/18 Clopidogrel Bisulfate [Plavix] 75 mg PO DAILY #30 tab 10/27/18 Furosemide [Lasix] 40 mg PO DAILY #30 tab 10/27/18 Guaifenesin [Mucinex] 1,200 mg PO BID #14 tab.er.12h 10/27/18 Levofloxacin [Levaquin] 500 mg PO DAILY #2 tab 10/27/18 Losartan Potassium [Cozaar] 25 mg PO DAILY #30 tab 10/27/18 Magnesium Oxide 420 mg PO DAILY #0 10/27/18 Prednisone 10 mg PO DAILY #30 tab 10/27/18 hydrALAZINE [Apresoline] 50 mg PO TID #90 tab 10/27/18 The following prescriptions were given: hydrALAZINE [Apresoline] 50 mg PO TID #90 tab Transmission Status: Pending to [facility] Carvedilol [Coreg (Beta Suzanne)] 6.25 mg PO BID #60 tab Transmission Status: Pending to [facility] Losartan Potassium [Cozaar] 25 mg PO DAILY #30 tab Transmission Status: Pending to [facility] Furosemide [Lasix] 40 mg PO DAILY #30 tab Transmission Status: Pending to [facility] Levofloxacin [Levaquin] 500 mg PO DAILY #2 tab Transmission Status: Pending to [facility] Guaifenesin [Mucinex] 1,200 mg PO BID #14 tab.er.12h Transmission Status: Pending to [facility] Clopidogrel Bisulfate [Plavix] 75 mg PO DAILY #30 tab Transmission Status: Pending to [facility] Prednisone 10 mg PO DAILY #30 tab Prescription Printed Orders to be completed after discharge: Phase II, Outpatient Cardiac Rehab Location: None Selected [facility] [Primary [facility] Provider] - Please follow up with your Primary Care Physician in: in 1-2 week Test Results: Test results from this visit will be discussed in further detail at your follow-up appointment, if applicable. Please Follow Up With: Eliezer Ruiz MD When: on 12/04/2018 at 10 AM.
[2018-10-27] MEDS: Ceftriaxone 1 GM/50 ML BAG IV (09:45)
--- NOTE | 2018-10-27 09:46 | PCM.DC.SUM ---
Discharge Date and Diagnosis Date of Admission: 10/23/18 Date of Discharge: 10/27/18 - Primary Discharge Diagnosis Active and Suspected Problems (Last Updated 10/26/18 @ 15:52 by Krys Martinez) Acute respiratory failure with hypoxia (Acute) COPD exacerbation (Acute) Pneumonia, pneumococcal (Acute) NSTEMI (non-ST elevated myocardial infarction) (Acute) Congestive heart failure (Suspected) - Secondary Discharge Diagnosis Chronic Problems (Last Updated 10/26/18 @ 15:52 by Krys Martinez) S/P CABG x 3 (Chronic 1998) [facility] [place], report not available as of 10/26/2018 Atherosclerosis of coronary artery bypass graft(s) without angina pectoris (Chronic) Successful PTCA/ODILON distal LCX with a 2.25 x 20 Promus Synergy stent,10/26/2018 per [facility] Patient is also status post three-vessel bypass surgery at [facility] [place] in [place], with subsequent catheterizations and stents over the last 5 years, the specifics of which are difficult to interpret Atherosclerosis of coronary artery of [place] heart (Chronic) Successful PTCA/ODILON distal LCX with a 2.25 x 20 Promus Synergy stent,10/26/2018 per [facility] Patient is also status post three-vessel bypass surgery at [facility] [place], with subsequent catheterizations and stents over the last 5 years, the specifics of which are difficult to interpret Stented coronary artery (Chronic 10/26/18) Successful PTCA/ODILON distal LCX with a 2.25 x 20 Promus Synergy stent,10/26/2018 per [facility] Hospital Course and Treatment Summary of Care Provided: [] This is a 73 gentleman with history of COPD, CKD stage III, Diabetes mellitus type II, coronary artery disease and chronic hypoxic respiratory failure was admitted with acute onset of shortness of breath for past few days. Patient pulse ox was found in 70s. Patient had elevated troponin 2.2. CT scan chest shows right lower lobe infiltrate. The patient was diagnosed acute on chronic hypoxic respiratory failure secondary to right lower lobe pneumonia, non-STEMI and was admitted in PCU. He was started on aspirin, Plavix, IV heparin drip and ceftriaxone and Zithromax. Patient had cardiac cath in the morning for non-STEMI and stenting circumflex and transferred to ICU. 1. acute on chronic hypoxic respiratory failure-patient currently on 3 L of oxygen, pulse ox 97%. The patient on baseline 2 L of oxygen. #2 COPD exacerbation secondary to right lower lobe community-acquired pneumonia: Patient assessment at the time of admission and that after was not found consistent with severe sepsis or septic shock. Patient had 4 days of azithromycin to start. Continue ceftriaxone. Continue bronchodilator, incentive spirometry, chest physiotherapy and steroid. Prescription for given for 2 more days of Levaquin, tapering dose of prednisone, and Mucinex. #3 acute non-STEMI with history of coronary artery status post CABG and stent with acute on chronic systolic and diastolic combined heart failure: Patient had cardiac cath in the morning. Patient had ODILON WITH PCI of distal left circumflex with AMANDA FLOW 75% to 0%. EF by LV gram 50%. Depressed LV systolic function. Inferior mid hypokinesis: Mild to moderate. Mid LAD occluded. Previous stent in an septal tap dancer. But upstream 75% stenosis. RCA occluded with graft. Echo on 10/24 shows EF 40 to 45% with stage I diastolic dysfunction. RVSP 35 mmHg. Trivial TR. prescriptions were given for Plavix, Coreg, Lasix, losartan, magnesium oxide and hydralazine. Dr. Ruiz recommended outpatient stress echo in 2 weeks and further decide about tap dancer stenosis regarding PCI #4 type 2 diabetes test: Blood sugars are elevated mainly secondary to Solu-Medrol. Solu-Medrol discontinued. Started on prednisone. Adjust insulin accordingly. #5 chronic kidney disease stage III secondary to type 2 diabetes #6 history of ventricular tachycardia-patient has an ICD which was placed years ago DVT prophylaxis: On bilateral SCD. Discharge medication reconciliation done. Discharge follow-up instructions completed. Discharge process discussed with the patient and all questions were answered to patient's satisfaction. Prescriptions were given as mentioned above. Patient to follow-up with PCP, [facility] in 1 to 2 weeks. Follow-up with cardiology office, MADAY Mccann in [address] Ruiz on 12/04/2018. Total time spent, exact 35 minutes on discharge meds reconciliation, examination, review of imaging and blood test and discussion with the patient on follow-up instructions. Subjective: Seen and examined. Blood pressure was elevated in the morning is controlled after antihypertensive medications. No acute events overnight. Heart rate is controlled. Objective: General: Alert, Oriented x3, Cooperative HEENT: Atraumatic, PERRLA, EOMI, Normocephalic Neck: Supple, No JVD, Negative Carotid Bruits Lungs: Clear to auscultation, No rhonchi, No wheeze, No rales, mild air entry diminished in the right lung base. Cardiovascular: Regular rate, Regular Rhythm, Normal S1, Normal S2, No murmurs Abdomen: Bowel Sounds Present, Soft, Non Tender, Non-Distended Extremities: Capillary Refill Less than 3 Seconds, Edema Skin: No rashes, No breakdown, Right groin access for cardiac cath: No hematoma/bleeding. Musculoskeletal: No Tenderness to Palpation of Joints or Extremities, Arthritic Changes Neurological: Cranial nerves II-XII grossly intact, Deep Tendon Reflexes 2+/4 and Symmetrical, Neuro grossly intact Psych/Mental Status: Normal Affect, Appropriate - Physical Exam Vital Signs Temp Pulse Resp BP Pulse Ox 97.9 F 62 17 170/47 H 91 10/27/18 09:00 10/27/18 09:00 10/27/18 09:00 10/27/18 09:00 10/27/18 09:00 Oxygen Flow Rate (L/min) 2 Oxygen Delivery Method Nasal Cannula Weight: 230 lb 13.184 oz Body Mass Index (BMI) 33.4 Intake and Output for Last 24 Hours 10/25/18 10/26/18 10/27/18 23:59 23:59 23:59 Intake Total 1546.00 / 1796.00 1867.25 / 1867.25 225 / 225 Output Total 1900 / 2500 3920 / 3920 1275 / 1275 Balance -354.00 / -704.00 -2052.75 / -2052.75 -1050 / -1050 Microbiology Past 72 Hours 10/23/18 19:50 Gram Stain - Final Sputum, Expectorated/Coughed Respiratory Culture - Final Mixed normal respiratory justina. No Streptococcus pneumoniae, beta-hemolytic Streptococcus or Staphylococcus aureus isolated. Laboratory Tests Past 24 Hrs 10/27/18 10/27/18 04:25 04:25 WBC 17.4 H RBC 5.17 Hgb 15.8 Hct 48.4 MCV 93.6 MCH 30.6 MCHC 32.6 RDW Std Deviation 46.6 H RDW Coeff of Momo 13.4 Plt Count 192 MPV 9.2 Sodium 139 Potassium 5.6 H Chloride 103 Carbon Dioxide 32.0 Anion Gap 4 L BUN 47 H Creatinine 1.35 H Estim Creat Clear Calc 48.01 Est GFR (MDRD) Af Amer 66 Est GFR (MDRD) Non-Af 55 L BUN/Creatinine Ratio 34.8 H Glucose 200 H Calcium 8.6 Total Bilirubin 0.40 AST 19 ALT 23 Alkaline Phosphatase 65 Total Protein 5.9 L Albumin 2.6 L Globulin 3.3 Albumin/Globulin Ratio 0.8 L POC Glucose 10/27/18 10/26/18 10/26/18 07:25 21:22 16:29 POC Glucose 197 H 180 H 250 H 10/26/18 12:13 POC Glucose 276 H Discharge Activity: May Not Drive Weight Bearing Status: Weight bearing as tolerated Home Medications: Medications to take at Discharge Albuterol Inhaler [Ventolin Hfa] 2 puff INHALATION Q4H PRN PRN 06/05/16 Aspirin [Lo-Dose Aspirin EC] 81 mg PO DAILY 06/05/16 Budesonide Inhaler 180 mcg [Pulmicort Inhaler 180 mcg] 2 puff INHALATION BID 06/05/16 Cholecalciferol (VIT D3) [Vitamin D3] 1,000 unit PO DAILY 06/05/16 Insulin Aspart [Novolog Vial] See Protocol SQ ACHS 06/05/16 Insulin Glargine [Lantus SoloStar Pen] 30 units SC BID 06/05/16 Montelukast [Singulair] 10 mg PO QHS 06/05/16 Rosuvastatin Calcium [Crestor] 40 mg PO QHS 06/05/16 Sodium Chloride 0.65% [[place] Nasal Minter] 2 sprays NARES 4X/DAY PRN PRN 06/05/16 Carvedilol [Coreg (Beta Suzanne)] 6.25 mg PO BID #60 tab 10/27/18 Clopidogrel Bisulfate [Plavix] 75 mg PO DAILY #30 tab 10/27/18 Furosemide [Lasix] 40 mg PO DAILY #30 tab 10/27/18 Guaifenesin [Mucinex] 1,200 mg PO BID #14 tab.er.12h 10/27/18 Levofloxacin [Levaquin] 500 mg PO DAILY #2 tab 10/27/18 Losartan Potassium [Cozaar] 25 mg PO DAILY #30 tab 10/27/18 Magnesium Oxide 420 mg PO DAILY #0 09/10/19 Prednisone 10 mg PO DAILY #30 tab 10/27/18 hydrALAZINE [Apresoline] 50 mg PO TID #90 tab 10/27/18 Following Prescrptions Were Given to Patient: hydrALAZINE [Apresoline] 50 mg PO TID #90 tab Prescription Printed Carvedilol [Coreg (Beta Suzanne)] 6.25 mg PO BID #60 tab Prescription Printed Losartan Potassium [Cozaar] 25 mg PO DAILY #30 tab Prescription Printed Furosemide [Lasix] 40 mg PO DAILY #30 tab Prescription Printed Levofloxacin [Levaquin] 500 mg PO DAILY #2 tab Prescription Printed Guaifenesin [Mucinex] 1,200 mg PO BID #14 tab.er.12h Prescription Printed Clopidogrel Bisulfate [Plavix] 75 mg PO DAILY #30 tab Prescription Printed Prednisone 10 mg PO DAILY #30 tab Prescription Printed Other Amb Orders: Phase II, Outpatient Cardiac Rehab Location: None Selected [facility]] - Please follow up with your Primary Care Physician in: in 1-2 week Please Follow Up With: Eliezer Ruiz MD When: on 12/04/2018 at 10 AM. Medical Necessity - Tobacco Use Smoking Status: Former smoker Tobacco Use: Non-smoker Meaningful Use Info Meaningful Use Diagnoses (Choose all that apply): None applicable Code Visit Inpatient E&M: 24051 Disch Hosp
--- NOTE | 2018-10-27 10:08 | EKG12_ITS ---
Test Reason : AM EKG Blood Pressure : / mmHG Vent. Rate : 063 BPM Atrial Rate : 063 BPM P-R Int : 138 ms QRS Dur : 092 ms QT Int : 402 ms P-R-T Axes : 082 027 049 degrees QTc Int : 411 ms Normal sinus rhythm Normal ECG When compared with ECG of 26-OCT-2018 09:58, MANUAL COMPARISON REQUIRED, DATA IS UNCONFIRMED Confirmed by CLARI HOLLOWAY ([id number]), book editor MAGALIS RIDER ([id number]) on 11/03/2018 1:01:57 PM Referred By: Terri Ponce Confirmed By:CLARI HOLLOWAY
--- NOTE | 2018-10-27 10:24 | CASEMGMT ---
BRIAN CM Note: Pt states he wants prescriptions filled at the [facility]. Call to [facility] Retail pharmacy to not fill prescriptions here. Pt states his will drive him to [place] today and they will fill prescriptions today. Explained to patient and his it was imperative he receive his medications today so there is no lapse in his med regimine. Pt understands and is agreeable. Dr. Barrett updated that pt will need paper scripts. BRIAN He updated pt to take paper scripts with him and he will have filled at [facility] unless there was a medical contraindication to this on dc. Elizabeth CAMPUZANON RN ACM
--- NOTE | 2018-10-27 11:37 | CASEMGMT ---
Addendum entered by Maxime Bonilla 10/27/18 11:42: Pt has appt for 2:30 @ [facility]. His is present and able to drive pt. Nurse reviewing dc instructions,. Elizabeth WOODSON Original Note: RN CM Note: Nurse received call from [facility] [phone] requesting clinical information re: PCI to speak with regarding visit today/scripts being filled by [facility]. Clinical faxed to . Elizabeth JIANG RN ACM
== END 2018-10-27 11:45 | disposition home or self-care (01) | DRG 981 ==
LOC: ICU 17:10 → PCU 10-24 07:09 → ICU 10-26 09:32
PROVIDERS: Hospitalist; Internal Medicine; Internal Medicine Cardiovascular Disease; Referring Provider Internal Medicine; Visit Provider Internal Medicine
DX: J13 Pneumonia due to Streptococcus pneumoniae (principal); I21.4 Non-ST elevation (NSTEMI) myocardial infarction; I50.43 Acute on chronic combined systolic (congestive) and diastolic (congestive) heart failure; J96.21 Acute and chronic respiratory failure with hypoxia; J44.1 Chronic obstructive pulmonary disease with (acute) exacerbation; J44.0 Chronic obstructive pulmonary disease with (acute) lower respiratory infection; I13.0 Hypertensive heart and chronic kidney disease with heart failure and stage 1 through stage 4 chronic kidney disease, or unspecified chronic kidney disease; I25.10 Atherosclerotic heart disease of native coronary artery without angina pectoris; Z95.1 Presence of aortocoronary bypass graft; E11.22 Type 2 diabetes mellitus with diabetic chronic kidney disease; N18.3 Chronic kidney disease, stage 3 (moderate); Z79.4 Long term (current) use of insulin; Z95.810 Presence of automatic (implantable) cardiac defibrillator; Z87.891 Personal history of nicotine dependence; Z99.81 Dependence on supplemental oxygen
CPT/HCPCS: 36415; 71045; 80048; 80053; 80061; 82962; 83036; 84484; 85025; 85027; 85347; 85610; 85730; 87070; 87205; 87449; 92928; 93005; 93306; 93459; 93567; 94640; 94667; 94668; 97110; 97116; 97162; 97165; 99152; 99153; 99251; J7030; J7040; Q9957; A4216; C1725; C1769; C1874; C1887; C1894; C9600; G0463; Q9967

== ENCOUNTER → 2018-11-19 | Outpatient (CLI) | payer MEDICARE, OTHER, SELFPAY ==
[2018-11-18 08:34] VITALS: BMI 33.4
--- NOTE | 2018-11-19 14:36 | PFTCOMP_ITS ---
COMPLETE PULMONARY FUNCTION TEST INTERPRETATION Brief HPI: Patient is a 73 year old male, currently under the care of Maria Luisa Potts, who presents to [facility] [place] for complete pulmonary function tests secondary to diagnosis of dyspnea. Respiratory therapist reports good effort and reproducible results. Interpretation: Forced expiration spirometry shows a moderately severe large airways obstructive ventilatory defect with an FEV1 of 52% predicted. There is no significant br onchodilator response by strict ATS criteria. Spirograms are of good quality and plateau slowly, indicating slowly emptying areas of the lungs. The respiratory flow volume loop shows decreased expiratory flow rates at all lung volumes consistent with airway obstruction. Lung volumes by body plethysmography show a normal total lung capacity at 5.53L, 89% predicted. FRC and RV are elevated out of proportion. Lung volume measurements are consistent with air-trapping. Diffusion capacity by carbon monoxide is normal at 69% predicted. The airway resistance is elevated. No previous pulmonary function tests were available for review. Impression: Irreversible moderately severe large airways obstructive ventilatory defect with symmetric reduction in diffusing capacity, consistent with the diagnosis of COPD.
== END | disposition home or self-care (01) ==
LOC: PSN 11:02
PROVIDERS: Referring Provider Nurse Practitioner Acute Care; Visit Provider Nurse Practitioner Acute Care
DX: R06.00 Dyspnea, unspecified (principal)
CPT/HCPCS: 94060; 94726; 94729

== ENCOUNTER → 2018-11-27 | Outpatient (CLI) | payer MEDICARE, OTHER, SELFPAY ==
[2018-10-27 08:47] VITALS: BMI 33.4
[2018-11-18 08:34] VITALS: BMI 33.4
--- NOTE | 2018-11-27 09:21 | STE_ITS ---
Reason For Study: CAD/ASHD Stress Results Protocol: Mike Protocol Maximum Predicted HR: 146 bpm Target HR: 124 bpm % Maximum Predicted HR: 68 % DurationHeart Rate Stage (mm:ss) (bpm) BP Comment BASELINE 51 140/70O2 2LNC REMAINS STAGE 1 3:00 87 142/70SOB, NO CHEST PAIN STAGE 2 3:00 100 / INCREASED SOB, NO CHEST PAIN RECOVERY 68 130/60 Stress Duration: 6:00 mm:ss Maximum Stress HR: 100 bpm Baseline Echocardiogram Findings The estimated ejection fraction is 55 %. Stress Echo Wall motion Data Resting WM Intermediate WM Stress WM Resting Wall Motion Wall Motion Stress Posterior-Basal: Mildly Posterior-Basal: Mildly hypokinetic. hypokinetic. EKG Data The baseline ECG displays normal sinus rhythm. The patient exercised according to the regular Mike protocol for a total duration of 6:01. The maximum heart rate attained was 100 beats per minute. This was 68% of maximum predicted heart rate. The patient exercised into stage 3 of the Mike protocol. At peak exercise, upsloping ST changes only were noted, which did not meet the criteria for ischemia. No clinical angina was noted. No arrhythmias noted. Interpretation Summary The estimated ejection fraction is 55 %. Resting: Posterior-Basal: Mildly hypokinetic Peak exercise: Posterior-Basal: Mildly hypokinetic Normal, submaximal, treadmill echocardiogram. Negative for ischemia by EKG and echocardiographic criteria. No anginal symptoms noted. No arrhythmias noted. Blunted blood pressure response to exercise. Decreased sensitivity due to failure to reach target heart rate. Patient had baseline inferior basal and posterior basal hypokinesis which did not improve during exercise. Patient had subtle anteroseptal hypokinesis seen in one view only. Test terminated due to dyspnea. Final LVEF of 65%. No complications. Ordering Physician: Tavares Camilo Referring Physician: Maria Luisa Potts Performed By: Diego Vilchis RCS
[2018-11-27 09:22] VITALS: PULSE 51; PULSE 63; PULSE 66; PULSE 67; PULSE 68; O2SAT 86; O2SAT 92; O2SAT 93; O2SAT 94; O2SAT 97
--- NOTE | 2018-11-27 09:25 | CPS ---
Patient arrived on 2LNC and started test on room air. Patient states his heart rate is always low resting and has a pacer/defibrillator set at 41. Patient also expressed interest in a portable oxygen concentrator.
--- NOTE | 2018-11-27 09:54 | WT_ITS ---
PSN 6 Minute Walk Test - 6 Minute Walk Test 6 Minute Walk Test: 6 Minute Walk Test PSN:6-Minute Walk Test Start: 11/27/18 09:22 Freq: Status: Active Protocol: RESP.6MINW Document 11/27/18 09:22 [facility] (Rec: 11/27/18 09:29 [facility] [id number]) 6 Minute Walk Test Date Performed 11/27/18 Time Performed 09:00 Height 5 ft 9 in Weight: 205 lb Weight in Pounds 205.[address]: Maria Luisa Potts Assistive device used: None Pre-test Oxygen Delivery Method Room Air Pulse Ox (%) 93 Pulse Rate (60-100 beats/min) 51 L Dyspnea Kemar Scale (0-10) 0 Exertion Kemar Scale (6-20) 11 1st minute Oxygen Delivery Method Room Air Pulse Ox (%) 86 Pulse Rate (60-100 beats/min) 66 2nd minute Oxygen Flow Rate (L/min) (L/min) 2 Oxygen Delivery Method Nasal Cannula Pulse Ox (%) 93 Pulse Rate (60-100 beats/min) 63 3rd minute Oxygen Flow Rate (L/min) (L/min) 2 Oxygen Delivery Method Nasal Cannula Pulse Ox (%) 92 Pulse Rate (60-100 beats/min) 68 4th minute Oxygen Flow Rate (L/min) (L/min) 2 Oxygen Delivery Method Nasal Cannula Pulse Ox (%) 94 Pulse Rate (60-100 beats/min) 67 5th minute Oxygen Flow Rate (L/min) (L/min) 2 Oxygen Delivery Method Nasal Cannula Pulse Ox (%) 93 Pulse Rate (60-100 beats/min) 68 6th minute Oxygen Flow Rate (L/min) (L/min) 2 Oxygen Delivery Method Nasal Cannula Pulse Ox (%) 92 Pulse Rate (60-100 beats/min) 68 Post-test Oxygen Flow Rate (L/min) (L/min) 2 Oxygen Delivery Method Nasal Cannula Pulse Ox (%) 97 Pulse Rate (60-100 beats/min) 51 L Dyspnea Kemar Scale (0-10) 0 Exertion Kemar Scale (6-20) 13 Full Laps Walked 16 Partial Lap, Number of Tiles Walked 8 Total Distance Walked (ft) 952 11/27/18 09:25 Cardiopulmonary Services by Mylene Duff Patient arrived on 2LNC and started test on room air. Patient states his heart rate is always low resting and has a pacer/defibrillator set at 41. Patient also expressed interest in a portable oxygen concentrator. Initialized on 11/27/18 09:25 - END OF NOTE - Interpretation Interpretation: The patient ambulated 952 feet over the course of 6 minutes beginning on room air without assistive devices or breaks. Pretesting oxygen saturation was noted to be 93% on room air. With ambulation, the tricia oxygen saturation was 86% at minute 1 of testing. 2 L/min of supplemental oxygen was applied and the patient was able to complete the remainder of the test while maintaining appropriate oxygen saturations. - Recommendations Recommendations: 2 L/min of supplemental oxygen should be utilized with exertion.
== END | disposition home or self-care (01) ==
LOC: PSN 08:54
PROVIDERS: Referring Provider Nurse Practitioner Acute Care; Visit Provider Nurse Practitioner Acute Care
DX: R06.00 Dyspnea, unspecified (principal); I25.810 Atherosclerosis of coronary artery bypass graft(s) without angina pectoris; I50.9 Heart failure, unspecified; Z95.1 Presence of aortocoronary bypass graft; Z95.5 Presence of coronary angioplasty implant and graft
CPT/HCPCS: 93017; 93350; 94618

== ENCOUNTER → 2018-12-09 | Outpatient (CLI) | payer MEDICARE, OTHER, SELFPAY ==
[2018-12-04 10:51] VITALS: BMI 32.8
--- NOTE | 2018-12-10 13:13 | STRESSREP ---
Stress Test Report Date: 12-09-18 Procedure: Thallium 201 viability study (rest rest viability study) Indications: CAD Consent: Per the patient Procedure: The patient was injected with 2.8 mCi of Thallium 201 and rest SPECT myocardial perfusion images were obtained at 4 hours and subsequently at 24 hours. Interpretation: Rest SPECT myocardial perfusion imaging at 4 hours appeared to demonstrate an area of subtle diminished tracer uptake near the basal inferior/inferolateral segments and otherwise appeared to demonstrate myocardial perfusion appearing within normal limits. Repeat rest SPECT myocardial perfusion imaging at 24 hours appeared to demonstrate increased myocardial perfusion/tracer uptake in portions of the basal inferior segments compared to the rest SPECT myocardio perfusion images at 4 hours suggesting an area of myocardial viability, as well as, demonstrating a small area of diminished myocardial perfusion/tracer uptake in portions of the mid anterior segment raising concern of a small area potentially compatible myocardial ischemia although, an area of shifting soft tissue attenuation/artifact cannot necessarily be excluded. Impression: 1. Rest Rest thallium 201 viability study demonstrates at 24 hours an element of increased myocardial perfusion/tracer uptake in portions of the basal inferior segment compared to the rest SPECT myocardial perfusion images at 4 hours suggesting an area of myocardial viability, as well as, demonstrating a small area of diminished myocardial perfusion/tracer uptake in portions of mid anterior segment raising concern of a small area potentially compatible with myocardial ischemia, although, an area of shifting soft tissue attenuation/artifact cannot necessarily be excluded. This note was generated with VaxInnateation software. It may contain incorrect words, spelling, and punctuation that were not noted in checking the note before signing.
== END | disposition home or self-care (01) ==
LOC: NM 07:56
PROVIDERS: Referring Provider Nurse Practitioner Family; Visit Provider Nurse Practitioner Family
DX: I25.5 Ischemic cardiomyopathy (principal); I25.810 Atherosclerosis of coronary artery bypass graft(s) without angina pectoris; Z95.1 Presence of aortocoronary bypass graft; Z95.5 Presence of coronary angioplasty implant and graft
CPT/HCPCS: 78451; A9505; A4216

== ENCOUNTER 2018-12-30 08:36 | Day surgery (SDC) | payer MEDICARE, OTHER, SELFPAY ==
[2018-12-14 15:59] VITALS: BMI 33.4
[2018-12-15 09:04] LABS: Hematocrit 41.6 % (40-54); Hemoglobin 13.8 g/dL (13.0-16.5); Mean Corp Hgb Conc 33.2 g/dL (32-36); Mean Corpuscular Hgb 30.1 pg (27.0-32.0); Mean Corpuscular Volume 90.6 fL (80-94); Mean Platelet Vol. 9.1 fl (6.2-12.0); Platelet Count 158 K/mm3 (150-450); RBC Distribution Width CV 12.2 % (11.6-14.6); RBC Distribution Width SD 40.4 fl (35.1-43.9); Red Blood Count 4.59 M/mm3 (4.6-6.2); White Blood Count 7.7 K/mm3 (4.4-11.0)
[2018-12-15 09:17] LABS: Prothrombin Time (Protime)PT. 12.6 SECONDS (11.7-14.9)
[2018-12-15 09:18] LABS: Partial Thromboplast Time 26.5 Seconds (24.1-36.2)
[2018-12-15 09:19] LABS: Anion Gap 2 (5-15); BUN 45 mg/dL (7-18); BUN/Creat Ratio 30.2 RATIO (10-20); Calcium,Total 9.2 mg/dL (8.5-10.1); Chloride 102 mmol/L (98-107); Creatinine, Serum 1.49 mg/dL (0.70-1.30); EST Glomerular Filtration Rate 49 mL/min (>60); Est Glom Filt Rate - Afr Amer 59 mL/min (>60); Glucose 119 mg/dL (74-106); Potassium 4.2 mmol/L (3.5-5.1); Sodium Level 141 mmol/L (136-145)
[2018-12-24 06:06] VITALS: BMI 34.1
[2018-12-29 08:33] VITALS: BMI 32.8
[2018-12-30] VITALS (26 sets, daily range): BP systolic 107–146; BP diastolic 37–73; PULSE 54–70; RESP 12–20; TEMP 36.7–36.9; O2SAT 95–100; BMI 32.5
[2018-12-30 09:16] LABS: Bedside Glucose 126 mg/dL (70-110)
--- NOTE | 2018-12-30 11:41 | CL.I_ITS ---
Patient Name: VIVEK ZACARIAS Study Date: 12/30/2018 Performing: Eliezer Ruiz MD Ht: 68.89 inches 175 cm : 1945 Wt: 222.67 lbs 101 kg Age: 73 Gender: male BSA: 2.16 PROCEDURE(S) PERFORMED [id number] W OR WO PTCA, SINGLE CORONARY ARTERY CLINICAL PROFILE AND CO-MORBIDITIES Indications: Stable Known CAD, Cardiomyopathy, LV Dysfunction Heart Failure: NYHA Class: 3 Stress/Imaging Date: 11/27/2018 Stress Echocardiogram: Indeterminant Angina Classification Anginal Classification w/in 2 Weeks: No symptoms CAD Presentations: Other: Dyspnea on exertion Comorbidities/Risk Factors: Hypertension Dyslipidemia Diabetes Mellitus: Diabetes Therapy: Insulin Prior CABG Prior PCI Prior CHF CONCLUSIONS Successful PTCA/ODILON mid LAD with a 2.25 x 28 Promus Synergy, post dilated with a 2.25 x 12 NC Balloon ; 75%-->0%, no dissection. RECOMMENDATIONS Highly recommend quitting all tobacco products Follow up with primary sorting and folding supervisor Risk factor modification ASA Indefinitley Plavix for at least 12 months Routine post interventional care Refer for Outpatient Cardiac Rehab Manual sheath removal per protocol Follow up with Dr. Ruiz Manual sheath removal once ACT<170. DESCRIPTION OF PROCEDURE The patient arrived to the procedure lab. The risks and benefits of the procedure as well as a full d escription of our services here and current unavailability of surgical backup were fully explained to the patient and/or their significant other prior to the catheterization. The Timeout was completed, verifying the correct patient and procedure. The patient's procedural site was prepped and draped in the usual fashion. Local anesthetic was given subcutaneously to right groin region with Lidocaine 2%. Using a modified Seldinger technique, arterial access was obtained via the right femoral artery, a 6 Fr sheath was inserted.. The images were reviewed and options discussed. A decision was then made to proceed with an Intervention, IVUS or other adjunct procedure. EBU 3.75 Guide catheter was inserted and engaged into the LCA. BMW Guide wire was advanced to the LAD. Angiogram performed pre balloon dilatation. 2.0 x 12 emerge Balloon catheter was advanced acros s lesion in the LAD, mid. PTCA balloon inflated at 6 atms for 33 secs. Angiogram performed post ballo on dilatation. 2.25 x 24 Synergy Drug Eluting stent was advanced across the lesion in the LAD, mid. 2 .25 x 12 NC Emerge Balloon catheter was advanced across lesion in the LAD, mid. Angiogram performed p ost stent deployment. The arterial sheath was sutured in place and capped INTERVENTION INFORMATION LESION SITE: LAD (Mid) Lesion Complexity: High/C, lesion at bifurcation: No, thrombus present: No, lesion length: 28 mm, cul prit lesion: Yes Pre Stenosis: 75 % Pre intervention AMANDA flow: 3 PROCEDURE: Drug Eluting Stent with pre and post dilatation Post Stenosis: 0 % Post intervention AMANDA flow: 3 Lesion Devices: Kelley .014 BMW Sherrill Straight 190cm JobConvotronic 6 Fr EBU3.75 100cm Guide Catheter Saurabh Sci EMERGE MR 2.00x12 BALLOON Saurabh Sci Synergy MR ODILON 2.25x24 Saurabh Sci NC EMERGE MR 2.25x12 BALLOON COMPLICATIONS No Complications PROCEDURE MEDICATIONS Heparin 6000 unit(s) IV 12/30/2018 11:06:29 Nitro 200 mcg IC 12/30/2018 11:08:35 IV Bolus: .9 NaCl 550 ml total 12/30/2018 11:26:50 IV Fluids: .9 NaCl IV started @ 200 ml/hr 12/30/2018 09:11:27 SUMMARY OF HEMODYNAMIC DATA Time AIR REST ECG 09:09:02 AO 148/54 (87) SA 11:07:46 Signed By Eliezer Ruiz MD On 12/30/2018 11:40:49 Eliezer Ruiz MD
--- NOTE | 2018-12-30 12:07 | CRPHASE1_ITS ---
Patient Communication Former Patient:: Phase I - patient was seen on 10/26/2018 by CR staff following previous PCI Intervention. Patient was educated on heart disease and provided a copy of A Guide to Your Cardiac Rehab PHII Cardiac Rehab Discussed with Patient:: Yes Guide to Cardiac Rehab Given to Patient:: Yes Cardiac Rehab Facility Choice List Given to Patient:: Yes Choice Program [facility] PHII:: Communication Given to CR, Refer to [facility] Veneer Sander:: Eliezer Ruiz Phase II Cardiac Rehab:: Yes Sessions:: 36 sessions - 3 days/wk, 12 weeks Risk Factors/Lifestyle Family History: Family History (Last Reviewed 12/24/18 @ 08:30 by Savi Zamudio) Mother Myocardial infarction Diabetes COPD (chronic obstructive pulmonary disease) Father Myocardial infarction Sister Breast cancer Colon cancer Sister Breast cancer Sister Cancer Sister Cancer Brother Myocardial infarction Bleeding disorder Brother Diabetes Cardiac Rehabilitation Info Cardiac Rehabilitation Program Information: Cardiac Rehabilitation is important for patients like you who are recovering from a heart problem. Cardiac rehabilitation programs are recognized as integral to the continued care of the patient with coronary heart disease. The cardiac rehabilitation program is designed to optimize a patient's physical, psychological, and social functioning. Health healthcare facility administrator work in cardiac rehabilitation programs and assist you with getting the treatments you need to get stronger and healthier - like exercise, healthy eating habits, and medications. Cardiac rehabilitation has been show to help people with heart problems live longer and have better life enjoyment than people who do not go to cardiac rehabilitation. Please contact the Cardiac Rehabilitation Program at [facility] at in two weeks if you have not heard from them.
--- NOTE | 2018-12-30 12:09 | CRPH1.INSTRU ---
General Education CAD and cardiac anatomy and function:: Patient communicates acknowledgment Explanation of diagnoses and procedures:: Patient communicates acknowledgment Sign/Symptoms of WA:: Patient communicates acknowledgment Antiplatelet therapy: Patient communicates acknowledgment Proper use of NTG-SL: Patient communicates acknowledgment Emergency procedures and activation of EMS: Patient communicates acknowledgment Compliance of all prescribed medications: Patient communicates acknowledgment - Patient was provided education of heart disease and risk factors. Patient was given A Guide to Your Cardiac Rehab following previous PCI Intervention on 10/26/2018.
[2018-12-30] MEDS: 0.9% Normal Saline 1,000 ML 150 ML IV (12:40)
[2018-12-30] MEDS: Ipratropium 0.5 MG/2.5 ML SOLUTION INHALATION ×2 (13:24→19:47)
[2018-12-30] MEDS: 0.9% Saline Lock 10 ML Syringe IV (13:30)
[2018-12-30 13:40] LABS: ACT Activated Clotting Time 153 sec (74-137)
[2018-12-30 13:51] LABS: ACT Activated Clotting Time 208 sec (74-137)
[2018-12-30] MEDS: hydrALAZINE 50 MG Tablet PO (15:26)
[2018-12-30 15:31] LABS: Bedside Glucose 91 mg/dL (70-110)
--- NOTE | 2018-12-30 20:35 | NURSING ---
Pts bedrest completed at this. Pt ambulated to doorway with assistance and back to bed. Pt denies any sob, pain or other complaints at this time. Pts drsg remained c/d/i, no hematoma noted. Pt returned to bed, no further needs at this time. Pts call light in reach.
[2018-12-30] MEDS: Montelukast 10 MG Tablet PO (21:22)
[2018-12-30] MEDS: Atorvastatin Calcium 80 MG Tablet PO (21:22)
[2018-12-30] MEDS: Carvedilol 6.25 MG Tablet PO (21:22)
[2018-12-30 21:36] LABS: Bedside Glucose 119 mg/dL (70-110)
[2018-12-31] VITALS (13 sets, daily range): BP systolic 101–157; BP diastolic 40–57; PULSE 59–77; RESP 15–21; TEMP 36.6–36.8; O2SAT 92–99
[2018-12-31 02:30] LABS: Bedside Glucose 103 mg/dL (70-110)
[2018-12-31 04:57] LABS: Hematocrit 37.3 % (40-54); Hemoglobin 12.5 g/dL (13.0-16.5); Mean Corp Hgb Conc 33.5 g/dL (32-36); Mean Corpuscular Hgb 30.8 pg (27.0-32.0); Mean Corpuscular Volume 91.9 fL (80-94); Mean Platelet Vol. 8.9 fl (6.2-12.0); Platelet Count 176 K/mm3 (150-450); RBC Distribution Width CV 12.6 % (11.6-14.6); RBC Distribution Width SD 42.5 fl (35.1-43.9); Red Blood Count 4.06 M/mm3 (4.6-6.2); White Blood Count 7.5 K/mm3 (4.4-11.0)
[2018-12-31 05:14] LABS: ALB/GLOB Ratio 1.1 RATIO (0.9-2.4); AST(SGOT) 19 U/L (15-37); Alanine Aminotransfer ALT/SGPT 22 U/L (16-61); Albumin, Serum 3.2 g/dL (3.2-5.0); Alkaline Phosphatase 62 U/L (45-117); Anion Gap 6 (5-15); BUN 41 mg/dL (7-18); BUN/Creat Ratio 26.6 RATIO (10-20); Calcium,Total 8.4 mg/dL (8.5-10.1); Chloride 104 mmol/L (98-107); Creatinine, Serum 1.54 mg/dL (0.70-1.30); EST Glomerular Filtration Rate 47 mL/min (>60); Est Glom Filt Rate - Afr Amer 57 mL/min (>60); Estimated Creatinine Clearance 42.08 ml/min; Globulin 2.9 g/dL (2.2-4.2); Glucose 112 mg/dL (74-106); Protein, Total 6.1 g/dL (6.4-8.2); Sodium Level 142 mmol/L (136-145)
[2018-12-31] MEDS: hydrALAZINE 50 MG Tablet PO (06:10)
[2018-12-31] MEDS: Ipratropium 0.5 MG/2.5 ML SOLUTION INHALATION (06:57)
[2018-12-31] MEDS: Aspirin E.C. 81 MG Tablet PO (07:50)
[2018-12-31] MEDS: Magnesium Oxide 400 MG Tablet PO (07:51)
[2018-12-31] MEDS: Carvedilol 6.25 MG Tablet PO (07:51)
[2018-12-31] MEDS: Losartan Potassium 25 MG Tablet PO (07:51)
[2018-12-31] MEDS: Clopidogrel Bisulfate 75 MG Tablet PO (07:52)
[2018-12-31] MEDS: Furosemide 40 MG Tablet PO (07:52)
--- NOTE | 2018-12-31 08:32 | PCM.DC.CCA ---
Discharge Diet: Low fat/ Low Cholesterol Discharge Activity: Return to Normal Activity May shower in (days): 1 Lifting Restrictions: 10 pounds and also avoid any pushing or pulling for 3 days after your test. Call your doctor if your incision/area has: Continuous Slow Oozing, Sudden Increased Bleeding, Increased Pain/ Swelling, Increased Redness, Foul Smelling Discharge, Swelling at the incision site Call your doctor if you observe: Fever of 101 or Higher, Shortness of breath, Chest pain Remove Dressing in (days):: 1 Additional Dressing/Incision Instructions:: Keep the dressing (bandage) on until the next morning. You may then shower, but do not take a tub bath for 5 days after your test. It is normal to have some tenderness and discomfort at the puncture site. Sometimes bruising also occurs. However, if pain, numbness, or coldness occurs below the puncture site (in your leg, toes, arms or fingers) call your doctor at once. You may have a small, marble sized knot at the puncture site. This is normal. Do not rub it. It will go away in 4-6 weeks. Bleeding can occur from the area where the puncture was done. Blood may spurt or drip from the site. If blood spurts, apply pressure right away to stop bleeding and call 911. Although rare, bleeding into the tissue (hematoma) can also occur. If this happens, a large, firm area goose egg under the skin will appear. If any of these occur, lie down as flat as you can and have someone apply firm pressure to the cath site with a gauze pad or a clean washcloth for 10-15 minutes. Call 911 or go to the Emergency Department. Additional Instructions: You will need to stay on your plavix for at least one year before it is held for any reason Allergies/Adverse Reactions: Allergies No Known Allergies Allergy (Verified 12/24/18 08:29) Medications to take at Discharge Albuterol Inhaler [Ventolin Hfa] 2 puff INHALATION Q4H PRN PRN 06/05/16 Aspirin [Lo-Dose Aspirin EC] 81 mg PO DAILY 06/05/16 Cholecalciferol (VIT D3) [Vitamin D3] 1,000 unit PO DAILY 06/05/16 Montelukast [Singulair] 10 mg PO QHS 06/05/16 Rosuvastatin Calcium [Crestor] 40 mg PO QHS 06/05/16 Sodium Chloride 0.65% [[place] Nasal [place]] 2 spry NARES 4X/DAY PRN PRN 06/05/16 Carvedilol [Coreg (Beta Suzanne)] 6.25 mg PO BID #60 tab 10/27/18 Clopidogrel Bisulfate [Plavix] 75 mg PO DAILY #30 tab 10/27/18 Furosemide [Lasix] 40 mg PO DAILY #30 tab 10/27/18 Losartan Potassium [Cozaar] 25 mg PO DAILY #30 tab 10/27/18 hydralazine 25 mg tablet 50 mg PO TID tab 11/18/18 insulin glargine (U-100) 100 unit/mL (3 mL) subcutaneous pen 42 unit SUBCUT DAILY ml 12/04/18 magnesium oxide 420 mg tablet 420 mg PO DAILY 12/04/18 nitroglycerin 400 mcg/spray translingual 1 spray SUBLINGUAL Q3-5M PRN #12 g 12/04/18 liraglutide 0.6 mg/0.1 mL (18 mg/3 mL) subcutaneous pen injector 1.2 mg SC DAILY 12/24/18 tiotropium bromide 2.5 mcg/actuation mist for inhalation 2 puff INHALATION DAILY #4 g 12/24/18 Primary Care Physician: [facility] [Primary Care Provider] - Test Results: Test results from this visit will be discussed in further detail at your follow-up appointment, if applicable. Please Follow Up With: Rebekah Gonzalez PA When: 01/20/19 at 1130 Cardiac Rehabilitation Info Cardiac Rehabilitation Program Information: Cardiac Rehabilitation is important for patients like you who are recovering from a heart problem. Cardiac rehabilitation programs are recognized as integral to the continued care of the patient with coronary heart disease. The cardiac rehabilitation program is designed to optimize a patient's physical, psychological, and social functioning. Health critical care physician work in cardiac rehabilitation programs and assist you with getting the treatments you need to get stronger and healthier - like exercise, healthy eating habits, and medications. Cardiac rehabilitation has been show to help people with heart problems live longer and have better life enjoyment than people who do not go to cardiac rehabilitation. Please contact the Cardiac Rehabilitation Program at [facility] at in two weeks if you have not heard from them.
--- NOTE | 2018-12-31 09:25 | PN.CARD_ITS ---
<LisaRebekah M - Last Filed: 12/31/18 09:25> Subjectve: Pt underwent a heart cath yesterday with stenting to his LAD. He has a Hx of HTN,DM, COPD, CAD with CABG in 1998, stents with the most recent to his LCx in 10/2018, cardiomyopathy with ICD. Pt is doing well and has no complaints. Objective: Vital Signs Temp Pulse Resp BP Pulse Ox 97.8 F 66 21 H 115/46 L 92 12/31/18 08:00 12/31/18 08:00 12/31/18 08:00 12/31/18 08:00 12/31/18 08:00 Oxygen Flow Rate (L/min) 0.5 Oxygen Delivery Method Room Air Weight: 222 lb 0.088 oz Body Mass Index (BMI) 32.5 Intake and Output for Last 24 Hours 12/29/18 12/30/18 12/31/18 23:59 23:59 23:59 Intake Total 1810 / 1810 120 / 120 Output Total 1450 / 1450 1050 / 1050 Balance 360 / 360 -930 / -930 General: Healthy Appearing, Awake, Alert, Oriented x 3 HEENT: Atraumatic, Normocephalic, PERRL Oral: Moist Mucosa Neck: Supple, No JVD Lungs: Clear to auscultation Cardiovascular: Regular Rhythm Murmur Murmur: Grade 2/6, Mid Systolic Abdomen: Bowel Sounds Present, Soft, Non Tender Extremities: No Cyanosis, No Clubbing, No edema Neurological: No Focal Motor or Sensory Deficit, CN II-XII Intact, Motor Strength 5/5 Bilat Psych/Mental Status: Appropriate, Normal Affect 12/31/18 04:45: WBC 7.5, RBC 4.06 L, Hgb 12.5 L, Hct 37.3 L, MCV 91.9, MCH 30.8, MCHC 33.5, Plt Count 176, MPV 8.9 12/31/18 04:45: Sodium 142, Potassium 4.0, Chloride 104, Carbon Dioxide 32.0, Anion Gap 6, BUN 41 H, Creatinine 1.54 H, Est GFR (MDRD) Af Amer 57 L, Est GFR (MDRD) Non-Af 47 L, BUN/Creatinine Ratio 26.6 H, Glucose 112 H, Calcium 8.4 L, Total Bilirubin 0.70 Rhythm: EKG: ECHO: Stress Test: Cardiac Cath: PCI:Successful PTCA/ODILON mid LAD with a 2.25 x 28 Promus Synergy, post dilated with a 2.25 x 12 NC Balloon; 75%-->0%, no dissection. CT Surgery: Holter monitor: EPS: PPM: CXR: Chest CT Scan: Medical Necessity - Tobacco Use Smoking Status: Former smoker Assessment/Plan 1. Atherosclerosis of coronary artery bypass graft of [place] heart without angina pectoris Pt underwent stenting to his LAD yesterday. He will continue with is BB, ARB, statin, ASA and Plavix. He is aware he needs to stay on his Plavix at least on year prior to stopping. He will follow up in our office. 2. Ischemic cardiomyopathy His echocardiogram in October 2018 demonstrated ejection fraction of 45-50% stage I diastolic dysfunction. He denies any symptoms of congestive heart failure today. He will continue current medical therapy which includes beta- el, ARB, and diuretic. We will continue to monitor. 3. Presence of implantable cardioverter-defibrillator This will continue to be followed by either the [facility] or our pacemaker clinic 4. Essential (primary) hypertension Controlled, will not make any adjustments at this time 5. Hyperlipidemia, unspecified hyperlipidemia type He will continue current statin medication. 6. Nonrheumatic aortic (valve) stenosis Patient's echocardiogram on 10/23/2018 showed moderate to severe aortic valve stenosis with a calculated aortic valve area of 1.1 cm?, peak aortic valve gradient of 40 mmHg, and a mean aortic valve gradient of 20 mmHg. At this time, this appears stable. He will continue current medical therap and monitor closely <Eliezer Ruiz - Last Filed: 12/31/18 10:28> Objective: Vital Signs Temp Pulse Resp BP Pulse Ox 97.8 F 73 15 101/44 L 95 12/31/18 08:00 12/31/18 09:00 12/31/18 09:00 12/31/18 09:00 12/31/18 09:00 Oxygen Flow Rate (L/min) 0.5 Oxygen Delivery Method Room Air Weight: 222 lb 0.088 oz Body Mass Index (BMI) 32.5 Intake and Output for Last 24 Hours 12/29/18 12/30/18 12/31/18 23:59 23:59 23:59 Intake Total 1810 / 1810 120 / 120 Output Total 1450 / 1450 1050 / 1050 Balance 360 / 360 -930 / -930 12/31/18 04:45: WBC 7.5, RBC 4.06 L, Hgb 12.5 L, Hct 37.3 L, MCV 91.9, MCH 30.8, MCHC 33.5, Plt Count 176, MPV 8.9 12/31/18 04:45: Sodium 142, Potassium 4.0, Chloride 104, Carbon Dioxide 32.0, Anion Gap 6, BUN 41 H, Creatinine 1.54 H, Est GFR (MDRD) Af Amer 57 L, Est GFR (MDRD) Non-Af 47 L, BUN/Creatinine Ratio 26.6 H, Glucose 112 H, Calcium 8.4 L, Total Bilirubin 0.70 Rhythm: EKG: ECHO: Stress Test: Cardiac Cath: PCI: CT Surgery: Holter monitor: EPS: PPM: CXR: Chest CT Scan: Assessment/Plan Interventional cardiology attending: Patient seen and examined, and is feeling much better.His right groin is clean/dry/intact without evidence of thrills, bruits or hematoma. HemoglobinAnd creatinine within nominal limits. Telemetry showed normal sinus rhythm with rare PVCs.EKG shows normal sinus rhythm, no acute changes. I agree with above findings. The patient will be discharged home and follow-up with Dr. Ruiz going forward. Will be enrolled in cardiac rehab in 2 weeks time once his groin is healed. No additional testing needed at this time. My hope is that the patient will mayers benefit from improving anterior oxygen delivery as well as inferior posterior oxygen delivery through the septal receiving specialist collaterals. Code Visit Inpatient E&M: 78167 Subs Hosp L2
--- NOTE | 2019-01-04 12:35 | HP.PCM_ITS ---
Problem List (1) Atherosclerosis of coronary artery bypass graft(s) without angina pectoris Status: Chronic Qualifiers: Comment: Successful PTCA/ODILON distal LCX with a 2.25 x 20 Promus Synergy stent,10/26/2018 per DJN @ [facility] Patient is also status post three-vessel bypass surgery at [facility] in 1998, with subsequent catheterizations and stents over the last 5 years, the specifics of which are difficult to interpret (2) Atherosclerosis of coronary artery of [place] Status: Chronic Comment: Successful PTCA/ODILON distal LCX with a 2.25 x 20 Promus Synergy stent,10/26/2018 per DJN @ [facility] Patient is also status post three-vessel bypass surgery at [facility] in 1998, with subsequent catheterizations and stents over the last 5 years, the specifics of which are difficult to interpret (3) Essential hypertension Status: Chronic (4) Hyperlipidemia Status: Chronic Qualifiers: (5) Ischemic cardiomyopathy Status: Chronic (6) Presence of implantable cardioverter-defibrillator (ICD) Status: Chronic Comment: [facility], revision 2004 and 2010, then 2015 (7) S/P CABG x 3 Status: Chronic Comment: SINGH to LAD, SVG to PDA, SVG to PLV [facility] 1996 History and Physical Date of Admission: 01/04/19 [facility] [address] [place] [address]. [address] [place] [address] OFFICE VISIT Date of Service: MR#: [id number] Acct: [id number] Name: VIVEK ZACARIAS Rep #: [id number] : 1945 Provider: Nichole Santa lt Age/Sex: 73/M Location: [facility] Status: Signed [facility] History of Present Illness Details: This a 73 year old M, former [place], with a history of hypertension, diabetes, hyperlipidemia, COPD on chronic O2 therapy at night, periodic inhalers, no pulmonary physician locally. In addition he has a history of tobacco abuse of approximately 2 packs/day for 20 years and quit around 14 years ago. Patient is also status post three-vessel bypass surgery at [facility] in 1998, with subsequent catheterizations and stents over the last 5 years, the specifics of which are difficult to interpret. He reports that he had stents in [place] and may be another catheterization after that. He underwent PTCA/ODILON to distal LCx on 11/05/2018. He underwent a stress echocardiogram on 11/27/2018 that was negative for ischemia at a submaximal level. In addition the patient has ischemic cardiomyopathy status post defibrillator/AICD since 1998. He denies chest, arm, jaw, or neck discomfort. His exercise tolerance is stable. He denies symptoms of CHF, palpitations, lightheadedness, dizziness, near syncope, or syncopal episodes. He denies edema or claudication issues. He denies orthopnea, PND, fever, chills, blood in urine, blood in stool, myalgia, or unexplainable fatigue. Intake Vital Signs 12/04/18 Body Mass Index (BMI) 32.8 12/04/18 Blood Pressure 110/58 12/04/18 Height 5 ft 9 in 12/04/18 Weight: 222 lb 12/04/18 Body Mass Index (BMI) 32.8 12/04/18 Blood Pressure 110/58 L 12/04/18 Blood Pressure Location Lt brachial 12/04/18 Blood Pressure Position Sitting 12/04/18 Respiratory Rate 16 12/04/18 Pulse Rate 56 L 12/04/18 Pulse Source Auscultation Intake Visit Reasons: Amb Documentation Allergies No Known Allergies Allergy (Verified 12/04/18 10:28) Medications Albuterol Inhaler [Ventolin Hfa] 2 puff INHALATION Q4H PRN PRN 06/05/16 [History Confirmed 12/04/18] Aspirin [Lo-Dose Aspirin EC] 81 mg PO DAILY 06/05/16 [History Confirmed 12/04/18] Cholecalciferol (VIT D3) [Vitamin D3] 1,000 unit PO DAILY 06/05/16 [History Confirmed 12/04/18] Insulin Aspart [Novolog Vial] See Protocol SQ ACHS 06/05/16 [History Confirmed 12/04/18] Montelukast [Singulair] 10 mg PO QHS 06/05/16 [History Confirmed 12/04/18] Rosuvastatin Calcium [Crestor] 40 mg PO QHS 06/05/16 [History Confirmed 12/04/18] Sodium Chloride 0.65% [[place] Nasal [place]] 2 spry NARES 4X/DAY PRN PRN 06/05/16 [History Confirmed 12/04/18] Carvedilol [Coreg (Beta Suzanne)] 6.25 mg PO BID #60 tab 10/27/18 [Rx Confirmed 12/04/18] Clopidogrel Bisulfate [Plavix] 75 mg PO DAILY #30 tab 10/27/18 [Rx Confirmed 12/04/18] Furosemide [Lasix] 40 mg PO DAILY #30 tab 10/27/18 [Rx Confirmed 12/04/18] Losartan Potassium [Cozaar] 25 mg PO DAILY #30 tab 10/27/18 [Rx Confirmed 12/04/18] budesonide 180 mcg/actuation breath activated powder inhaler 2 inh INHALATION BID #1 ea 10/29/18 [Rx Confirmed 12/04/18] hydralazine 25 mg tablet 50 mg PO TID tab 11/18/18 [History Confirmed 12/04/18] insulin glargine (U-100) 100 unit/mL (3 mL) subcutaneous pen 50 unit SUBCUT DAILY ml 12/04/18 [History Confirmed 12/04/18] magnesium oxide 420 mg tablet 420 mg PO DAILY 12/04/18 [History Confirmed 12/04/18] nitroglycerin 400 mcg/spray translingual 1 spray SUBLINGUAL Q3-5M PRN #12 g 12/04/18 [Rx Confirmed 12/04/18] [facility] Medical History Hyperlipidemia (Chronic) Essential hypertension (Chronic) Ischemic cardiomyopathy (Chronic) Atherosclerosis of coronary artery bypass graft(s) without angina pectoris (Chronic) Atherosclerosis of coronary artery of [place] heart (Chronic) Pneumonia, pneumococcal (Resolved) NSTEMI (non-ST elevated myocardial infarction) (Resolved) Congestive heart failure (Chronic) Carpal tunnel syndrome, bilateral (Chronic) DEMAR (obstructive sleep apnea) (Chronic) Pulmonary nodules (Chronic) History of ventricular fibrillation (Resolved) CKD (chronic kidney disease) stage 3, GFR 30-59 ml/min (Chronic) COPD (chronic obstructive pulmonary disease) (Chronic) Chronic respiratory failure (Chronic) DM2 (diabetes mellitus, type 2) (Chronic) Acute respiratory failure with hypoxia (Resolved) COPD exacerbation (Resolved) Surgical History Presence of implantable cardioverter-defibrillator (ICD) (Chronic ~2016) S/P CABG x 3 (Chronic 1996) Stented coronary artery (Chronic 10/26/18) Hx of cholecystectomy (Resolved) Family History Mother Myocardial infarction Diabetes COPD (chronic obstructive pulmonary disease) Father Myocardial infarction Sister Breast cancer Colon cancer Sister Breast cancer Sister Cancer lung cancer Sister Cancer skin cancer Brother Myocardial infarction Bleeding disorder clot in heart Brother Diabetes Social History (Updated 12/04/18 @ 13:05 by Tavares Camilo NP-C) how long ago did patient quit smokin years ago alcohol intake: former year quit: 1983 substance use type: does not use caffeine: Yes Type: coffee Number of servings: 2 ROS Const Const: Negative for fatigue, weakness, body ache, fever(s) or chills ENT ENT: Negative for dizziness Cardio Chest Pain: No Palpitations: No Edema: None Muscle aches with walking: None Resp Respiratory: Negative for SOB with activity, SOB at rest, SOB orthopnea\SOB lying down or paroxysmal nocturnal dyspnea GI GI: Negative nausea, vomiting blood/hematemesis, bright, red blood in stools or black,tarry stools : Negative for hematuria or frequent nighttime urination/ nocturia Musc Musc: Negative for muscle aches/ myalgia Skin Skin: Negative non-healing lesions or rash Neuro Neuro: Negative for dizziness, lightheadedness, near syncope, syncope, orthostatic symptoms or weakness Endo Endo: Negative for fatigue Allergy Allergy/Immunology: Negative for rash Cardiology Exam Const Appearance: cooperative, healthy appearing, comfortable and no acute distress Nutritional Appearance: well nourished and obese Orientation: alert, awake and oriented x3 Head Head: normal to inspection Ears: hearing grossly normal bilaterally Nose: external nose normal Face and Sinus: face symmetric Mouth: oral mucosae normal Eyes General: appearance normal, both eyes and all related structures Eyelids: eyelids normal EOM: EOM intact bilaterally Neck Neck: normal visual inspection and no JVD Carotids: normal carotid upstroke Chest Chest inspection: normal inspection of the chest, symmetric chest movement and normal respiratory effort; negative cough Auscultation: Bilateral: Clear to Auscultation Cardio Rate: regular rate Rhythm: regular rhythm Heart sounds: S1 normal, S2 normal and murmur; negative rub or gallop Murmur: Grade 2/6 and RLSB GI GI: normal to inspection and obese Neuro General: alert, awake, oriented x3 and CN's II-XI intact bilaterally Skin Skin: no rashes or lesions noted Extremities Pulses: Normal: Right Posterior Tibial Pulse, Left Posterior Tibial Pulse, Right Radial Pulse, Left Radial Pulse Lower Extremity Edema: None: Bilateral Right groin soft and without bruit. Psych Psychological: normal affect Assessment & Plan 1. Atherosclerosis of coronary artery bypass graft of [place] without angina pectoris I25.810 Successful PTCA/ODILON distal LCX with a 2.25 x 20 Promus [facility] is also status post three-vessel bypass surgery at [facility] in 1998, with subsequent catheterizations and stents over the last 5 years, the specifics of which are difficult to interpret Plan - TACO Santamaria Patient denies any chest pain, arm pain, jaw pain, neck pain, shortness of breath, or fatigue suggestive of angina at this time. We will continue to monitor. We will not make any medication regimen changes and will continue risk factor modification. Despite patient's stress echocardiogram being negative, he will undergo a myocardial viability perfusion scan. His stress echocardiogram was submaximal. His septal psychology intern on heart catheterization on 11/05/2018 did reveal 65% residual stenosis. Based on results of his perfusion scan further recommendation will be made which may include repeat catheterization with intervention. Orders Orders: Myocar VIABILITY Perf Str/Rest Today 2. S/P CABG x 3 Z95.1 SINGH to LAD, SVG to PDA, SVG to PLV [facility] 1996 Plan - TACO Santamaria He will continue current treatment as above. Orders Orders: Myocar VIABILITY Perf Str/Rest Today 3. Stented coronary artery Z95.5 TAXUS ODILON to RCA [address]; 2.5 x 13 mm [place] to septal psychology intern 06/2008;Successful PTCA/ODILON distal LCX with a 2.25 x 20 Promus Synergy stent,10/26/2018 per [facility] Plan - TACO Santamaria He will continue current treatment plan as outlined above. Orders Orders: Myocar VIABILITY Perf Str/Rest Today 4. Ischemic cardiomyopathy I25.5 Plan - TACO Santamaria His echocardiogram in October 2018 showed ejection fraction of 45-50% stage I diastolic dysfunction. He denies any symptoms of congestive heart failure today. He will continue current medical therapy which includes beta-suzanne, ARB, and diuretic. We will continue to monitor. Orders Orders: Myocar VIABILITY Perf Str/Rest Today 5. Presence of implantable cardioverter-defibrillator (ICD) Z95.810 [facility]ICD [facility], revision 2004 and 2010, then 2016 Plan - TACO Santamaria It is unclear as to where his device is followed. This will need to be investigated further. 6. Essential (primary) hypertension I10 Plan - TACO Santamaria Patient's blood pressure is well-controlled. We will continue to monitor. We will not make any medication regimen changes. 7. Hyperlipidemia, unspecified hyperlipidemia type E78.5 Plan - TACO Santamaria Lipid panel from 10/25/2018 showed cholesterol: 57, HDL: 45, LDL: 84, and triglyc erides: 141. He will continue current statin medication. 8. Nonrheumatic aortic (valve) stenosis I35.0 Plan - TACO Santamaria Patient's echocardiogram on 10/23/2018 showed moderate to severe aortic valve stenosis with a calculated aortic valve area of 1.1 cm?, peak aortic valve gradient of 40 mmHg, and a mean aortic valve gradient of 20 mmHg. At this time, this appears stable. He will continue current medical therapy. Plan Detail Other Medications New: nitroglycerin until response; do not exceed 3 doses per episode 1 spray sublingual Q3-5M PRN 12 grams 3RF Additional Comments - TACO Santamaria Patient will proceed with cardiac rehab at [facility]. We will reevaluate his overall progress in approximately 3 months. Patient's care was discussed with Dr. Ruiz, who also physically evaluated patient. He is agreeable to current plan. Thank you for allowing us to participate in the patients plan of care, if you have any questions please do not hesitate to call. This note was generated using a voice recognition system and there may be incorrect words, spelling or punctuation that were not noted when reviewing the office note prior to saving. Follow Up 3 Months (DJN) Coding Level of Care Code Off vis,est,level 4 Diagnoses Atherosclerosis of coronary artery bypass graft of [place] without angina pectoris I25.810 ??[place] vs. transplanted heart: [place] S/P CABG x 3 Z95.1 Stented coronary artery Z95.5 Ischemic cardiomyopathy I25.5 Presence of implantable cardioverter-defibrillator (ICD) Z95.810 Essential (primary) hypertension I10 Hyperlipidemia, unspecified hyperlipidemia type E78.5 ??Hyperlipidemia type: unspecified Nonrheumatic aortic (valve) stenosis I35.0 Coding Level of Care Code Off vis,est,level 4 Diagnoses Atherosclerosis of coronary artery bypass graft of [place] without angina pectoris I25.810 ??[place] vs. transplanted heart: [place] S/P CABG x 3 Z95.1 Stented coronary artery Z95.5 Ischemic cardiomyopathy I25.5 Presence of implantable cardioverter-defibrillator (ICD) Z95.810 Essential (primary) hypertension I10 Hyperlipidemia, unspecified hyperlipidemia type E78.5 ??Hyperlipidemia type: unspecified Nonrheumatic aortic (valve) stenosis I35.0 Supplemental Info Supplemental Information Heart catheterization from 10/26/2018: CONCLUSIONS Successful PTCA/ODILON distal LCX with a 2.25 x 20 Promus Synergy stent, post dilated proximally with a 2.5 x 8 NC Balloon; 75%-->0%, no dissection. RECOMMENDATIONS Referred for immediate PCI Highly recommend quitting all tobacco products Follow up with primary quad stayer Risk factor modification ASA Indefinitley Plavix for at least 12 months Routine post interventional care Refer for Outpatient Cardiac Rehab Manual sheath removal per protocol Follow up with Dr. Ruiz Manual sheath removal as access is at bifurcation of SFA and profunda. Stress test in 2 weeks to eval septal psychology intern ischemia; if abnormal for either anterior septal and/or inferior ischemia, will consider PCI of large septal psychology intern. Ascending aortogram appears to demonstrate occluded SVG to LCX. CORONARY ANGIOGRAPHY DOMINANCE: Right Dominant LEFT HEART ASSESSMENT Left Ventricular Ejection Fraction: by LV Gram 50 % Depressed Left Ventricular systolic function LVEDP: 26 mmHg Elevated Left Ventricular End Diastolic Pressure Inferior Mid Hypokinesis - Mild to Moderate LEFT MAIN: No significant disease noted LEFT ANTERIOR DESCENDING ARTERY: MID LAD: is occluded SEPTAL: 65 % Stenosis CIRCUMFLEX ARTERY: DISTAL CIRC: 75% Stenosis RIGHT CORONARY ARTERY: is occluded GRAFTS: SINGH graft to the LAD is patent Saphenous Vein graft to the RCA is totally occluded Saphenous Vein graft to the PLV is totally occluded COLLATERAL FLOW: Collateral flow from Left to Right via septal perforators. Echocardiogram from 10/23/2018: Interpretation Summary Mild concentric left ventricular hypertrophy. The estimated ejection fraction is 45-50 %. Stage 1 diastolic dysfunction. Infero-Basal: Mildly hypokinetic Posterior-Basal: Mildly hypokinetic Trivial tricuspid valve insufficiency. Right ventricular systolic pressure estimated to be 35 mmHg. Fusion of the right and left coronary cusps Moderate to severe aortic stenosis, but may be underestimated due to reduced LV function. Calculated aortic valve area (continuity equation) is 1.1 cm2. Trivial aortic valve insufficiency. There is no comparison study available. Labs LDL Cholesterol 84 mg/dL (0-130) 10/25/18 HDL Cholesterol 45 mg/dL (40-) 10/25/18 Triglycerides 141 mg/dL (-199) 10/25/18 VLDL Cholesterol 28 mg/dL (5-40) 10/25/18 Diagnostics Electrocardiogram 10/27/18 Echocardiogram 10/23/18 Stress Echocardiogram 11/27/18 Chest X-Ray 10/25/18 Pulmonary Pulmonary Function Test 11/19/18 Pulmonary Exercise Test 11/27/18 12/04/18 1305 <Electronically signed by Tavares Camilo N P-C> Date _ Tavares Camilo CAN REFORMING MACHINE OPERATOR-C 12/04/18 1528<Electronically signed by Eliezer Ruiz MD> Cosigner Signature: Date (if applicable) Eliezer Ruiz MD CC: ~ Patient seen and examined, and no interim change. The risk/benefits of the procedure were thoroughly explained the patient and informed consent was obtained. Cardiac catheterization to follow.
== END 2018-12-31 10:30 | disposition home or self-care (01) ==
LOC: CLSP 08:38 → ICU 12-31 07:27
PROVIDERS: Referring Provider Internal Medicine Cardiovascular Disease; Visit Provider Internal Medicine Cardiovascular Disease
DX: I25.810 Atherosclerosis of coronary artery bypass graft(s) without angina pectoris (principal); E78.5 Hyperlipidemia, unspecified; J44.9 Chronic obstructive pulmonary disease, unspecified; I25.5 Ischemic cardiomyopathy; I35.0 Nonrheumatic aortic (valve) stenosis; I13.0 Hypertensive heart and chronic kidney disease with heart failure and stage 1 through stage 4 chronic kidney disease, or unspecified chronic kidney disease; E11.22 Type 2 diabetes mellitus with diabetic chronic kidney disease; N18.3 Chronic kidney disease, stage 3 (moderate); I50.9 Heart failure, unspecified; I25.2 Old myocardial infarction; Z95.5 Presence of coronary angioplasty implant and graft; Z95.1 Presence of aortocoronary bypass graft; Z95.810 Presence of automatic (implantable) cardiac defibrillator; Z99.81 Dependence on supplemental oxygen; Z87.891 Personal history of nicotine dependence; Z79.4 Long term (current) use of insulin; Z79.82 Long term (current) use of aspirin; Z79.51 Long term (current) use of inhaled steroids; Z79.899 Other long term (current) drug therapy
CPT/HCPCS: 36415; 80048; 80053; 82962; 85027; 85347; 85610; 85730; 92928; 93005; 94640; 99251; J7030; J7040; Q9967; A4216; C1725; C1769; C1874; C1887; C9600; G0463

== ENCOUNTER 2019-03-16 20:36 | Inpatient (IN) | payer MEDICARE, OTHER, SELFPAY ==
[2019-03-04 09:17] VITALS: BMI 33.2
[2019-03-16] VITALS (10 sets, daily range): BP systolic 97–110; BP diastolic 43–54; PULSE 64–70; RESP 18–20; TEMP 36.7–36.8; O2SAT 93–97; BMI 32.3; BMI 32.4
--- NOTE | 2019-03-16 17:06 | EKG12_ITS ---
Test Reason : Blood Pressure : / mmHG Vent. Rate : 063 BPM Atrial Rate : 063 BPM P-R Int : 150 ms QRS Dur : 088 ms QT Int : 414 ms P-R-T Axes : 056 015 066 degrees QTc Int : 423 ms Normal sinus rhythm Normal ECG When compared with ECG of 31-DEC-2018 05:23, QRS duration has decreased Criteria for Lateral infarct are no longer Present ST no longer depressed in Inferior leads ST no longer elevated in Anterior leads T wave inversion no longer evident in Inferior leads Confirmed by CLARI HOLLOWAY ([id number]), research editor LISS MATUTE ([id number]) on 03/18/2019 10:44:08 AM Referred By: Korina Prieto Confirmed By:CLARI HOLLOWAY
--- NOTE | 2019-03-16 17:20 | HP.PCM_ITS ---
History of Present Illness Date of Admission: 03/16/19 Chief Complaint: chest pain The patient is a 73 year old M with an extensive past medical history as listed. He was admitted as a transfer from [facility] on 03/16/2019 with a complaint of chest pain. Patient states that he woke up this morning having right-sided chest pain and right-sided neck pain which was mildly relieved by nitro with no aggravating or relieving factors. He had no associated chest pain or palpitations, dizziness, nausea vomiting or diarrhea or lightheadedness or dizziness. He does think the chest pain was pleuritic in nature. Of note, patient was managed for pneumonia last week when he went to the urgent care center on account of shortness of breath. He was diagnosed with pneumonia and put on p.o. doxycycline. He still does have a residual cough which is nonproductive and has occasional wheezing. He is on 2 L of oxygen at home and states that after his most recent stent placement in December 2018, he was told he did not need the oxygen again. However he still has the canister at home and when he got the pneumonia, he noted that his saturation was going down to the high 80s so he has been using the oxygen. Review of stems otherwise negative. In [place], initial troponin was negative and EKG showed normal sinus rhythm with no acute ST changes. He has been admitted to be managed for chest pain rule out ACS. [] Past Medical History Past Medical History (Chronic Problems): Chronic Problems (Last Reviewed 03/04/19 @ 09:33 by TACO Peck) Stage 3 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 (Chronic) Presence of implantable cardioverter-defibrillator (ICD) (Chronic ~2016) Per [place] records, AICD in 2006, revision 2004 and 2010, then 2016 Hyperlipidemia (Chronic) Essential hypertension (Chronic) Ischemic cardiomyopathy (Chronic) S/P CABG x 3 (Chronic 1996) SINGH to LAD, SVG to PDA, SVG to PLV [facility] 1996 Atherosclerosis of coronary artery bypass graft(s) without angina pectoris (Chronic) Successful PTCA/ODILON distal LCX with a 2.25 x 20 Promus Synergy stent,10/26/2018 per CHANELL @ [facility] Patient is also status post three-vessel bypass surgery at [facility] in 1998, with subsequent catheterizations and stents over the last 5 years, the specifics of which are difficult to interpret Atherosclerosis of coronary artery of [facility] heart (Chronic) Successful PTCA/ODILON distal LCX with a 2.25 x 20 Promus Synergy stent,10/26/2018 per [facility] Patient is also status post three-vessel bypass surgery at [facility] in 1998, with subsequent catheterizations and stents over the last 5 years, the specifics of which are difficult to interpret Stented coronary artery (Chronic 12/30/18) TAXUS ODILON to RCA 2005 in [place]; 2.5 x 13 mm Cypher to septal financial aid counselor 06/2008;Successful PTCA/ODILON distal LCX with a 2.25 x 20 Promus Synergy adiel nt,10/26/2018 per [facility].12/30/18: Successful PTCA/ODILON mid LAD with a 2.25 x 28 Promus Synerg Congestive heart failure (Chronic) Medical History: Medical History (Last Reviewed 03/04/19 @ 09:33 by Maria Luisa Potts, INTERNATIONAL OPERATIONS MANAGER-C) Hyperlipidemia (Chronic) E78.5 Essential hypertension (Chronic) I10 Ischemic cardiomyopathy (Chronic) I25.5 Atherosclerosis of coronary artery 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 heart (Chronic) I25.10 Successful PTCA/ODILON distal LCX with a 2.25 x 20 Promus Synergy stent,10/26/2018 per [facility] Patient is also status post three-vessel bypass surgery at [facility] in 1998, with subsequent catheterizations and stents over the last 5 years, the specifics of which are difficult to interpret Pneumonia, pneumococcal (Resolved) J13 NSTEMI (non-ST elevated myocardial infarction) (Resolved) I21.4 Congestive heart failure (Chronic) I50.9 CKD (chronic kidney disease) stage 3, GFR 30-59 ml/min N18.3 COPD (chronic obstructive pulmonary disease) J44.9 Carpal tunnel syndrome, bilateral G56.03 Chronic respiratory failure J96.10 DM2 (diabetes mellitus, type 2) E11.9 DEMAR (obstructive sleep apnea) G47.33 doesn't use CPAP Pulmonary nodules R91.8 Acute respiratory failure with hypoxia J96.01 COPD exacerbation J44.1 History of ventricular fibrillation Z86.79 Allergies No Known Allergies Allergy (Verified 03/04/19 09:16) Home Medications: Ambulatory Orders Medication Instructions Recorded Albuterol Inhaler [Ventolin Hfa] 2 puff INHALATION Q4H PRN PRN 06/05/16 Aspirin [Lo-Dose Aspirin EC] 81 mg PO DAILY 06/05/16 Cholecalciferol (VIT D3) [Vitamin 1,000 unit PO DAILY 06/05/16 D3] Montelukast [Singulair] 10 mg PO QHS 06/05/16 Rosuvastatin Calcium [Crestor] 40 mg PO QHS 06/05/16 Sodium Chloride 0.65% [[place] Nasal 2 spry NARES BID PRN PRN 06/05/16 [place]] hydralazine 25 mg tablet 50 mg PO TID tab 11/18/18 insulin glargine 100 unit/mL (3 42 unit SUBCUT DAILY ml 12/04/18 mL) subcutaneous pen magnesium oxide 420 mg tablet 420 mg PO DAILY 12/04/18 nitroglycerin 400 mcg/spray 1 spray SUBLINGUAL Q3-5M PRN #12 g 12/04/18 translingual liraglutide 0.6 mg/0.1 mL (18 mg/3 1.2 mg SC DAILY 12/24/18 mL) subcutaneous pen injector Albuterol Aerosols [Ventolin 2.5 mg INHALATION Q6H PRN PRN 03/16/19 Aerosols] Budesonide/Formoterol 160/4.5 2 puff INHALATION BID 03/16/19 [Symbicort 160/4.5 Mcg Inhaler (SP)] Carvedilol [Coreg (Beta Suzanne)] 6.25 mg PO BID 03/16/19 Clopidogrel Bisulfate [Clopidogrel] 75 mg PO DAILY 03/16/19 Doxycycline Hyclate 100 mg PO BID 03/16/19 Fluticasone 0.05% [Flonase Nasal 2 spray NASAL DAILY 03/16/19 [place]] Furosemide [Lasix] 40 mg PO DAILY 03/16/19 Guaifen/Dextromethorphan/PE 5 ml PO Q6H PRN 03/16/19 [Tusnel Dm Liquid] Guaifen/Dextromethorphan/PE 5 ml PO Q6H PRN PRN 03/16/19 [Tusnel Dm Liquid] Ipratropium [place] 0.06% 2 spray NASAL BID PRN PRN 03/16/19 [ATROVENT NASAL SPRAY (g)] Losartan Potassium [Cozaar] 25 mg PO DAILY 03/16/19 Prednisone See Taper PO DAILY 03/16/19 Tiotropium [place] [Spiriva 2 puff INHALATION DAILY 03/16/19 Respimat] Surgical History: Surgical History (Last Reviewed 03/04/19 @ 09:33 by Maria Luisa Potts NP-C) Presence of implantable cardioverter-defibrillator (ICD) (Chronic) Onset Date: ~2015 Z95.810 Per [place] records, AICD in 2006, revision 2004 and 2010, then 2016 S/P CABG x 3 (Chronic) Onset Date: 1996 Z95.1 SINGH to LAD, SVG to PDA, SVG to PLV [facility] 1996 Stented coronary artery (Chronic) Onset Date: 12/30/18 Z95.5 TAXUS ODILON to RCA 2005 in [place]; 2.5 x 13 mm Cypher to septal financial aid counselor 06/2008;Successful PTCA/ODILON distal LCX with a 2.25 x 20 Promus Synergy stent,10/26/2018 per CHANELL @ [facility].12/30/18: Successful PTCA/ODILON mid LAD with a 2.25 x 28 Promus Synerg Hx of cholecystectomy Z90.49 Psychiatric History: No pertinent psych hx Lives: Spouse/ Significant Other Smoking Status: Former smoker Tobacco Use: Cigarettes Alcohol: None Drugs: None - *Family History Maternal Family History: Family History (Last Reviewed 03/04/19 @ 09:33 by Maria Luisa Potts NP-C) Mother Myocardial infarction Diabetes COPD (chronic obstructive pulmonary disease) Father Myocardial infarction Sister Breast cancer Colon cancer Sister Breast cancer Sister Cancer Sister Cancer Brother Myocardial infarction Bleeding disorder Brother Diabetes Review of Systems Constitutional: Denies: Chills, Fever, Night Sweats, Malaise, Weight Change Eyes: Denies: Blurred vision HEENT: Denies: Head Aches, Sinus Congestion, Sinus Drainage Cardiovascular: Reports: Chest Pain. Denies: Chest Pressure, Chest Tightness, Edema, Orthopnea, Palpitations, Paroxysmal Noc. Dyspnea, Syncope Respiratory: Reports: Cough, Pleuritic Pain, Shortness of Breath, Shortness of breath at rest, Wheezing. Denies: Shortness of breath upon exertion, Sputum production Gastrointestinal: Denies: Abdominal Pain, Nausea, Vomiting Genitourinary: Denies: Dysuria Musculoskeletal: Denies: Joint Pain, Joint Tenderness Skin: Denies: Rash, Wounds Neurological: Denies: Numbness, Tingling, Focal weakness Psychiatric: Denies: Anxiety, Depression, Homicidal Ideations, Suicidal Ideations Hematologic/ Lymphatic: Denies: Easy Bruising, Easy Bleeding VTE Information - Inpt Only VTE Present on Admission: No VTE Pharm Prophylaxis ordered?: Yes - Physical Exam Vitals/I&O's: Vital Signs Temp Pulse Resp BP Pulse Ox 98.1 F 65 18 97/52 L 97 03/16/19 15:28 03/16/19 15:28 03/16/19 15:37 03/16/19 15:29 03/16/19 15:37 Oxygen Flow Rate (L/min) 2 Oxygen Delivery Method Nasal Cannula Weight: 219 lb 2.232 oz Body Mass Index (BMI) 32.3 General: Alert, Oriented x3, Cooperative, No apparent distress HEENT: Atraumatic, PERRLA, EOMI, Normocephalic Oral: Moist Mucosa Neck: Supple, No JVD, Negative Carotid Bruits Lungs: - - diminished breath sounds bibasally, with mild wheezing. on 2L of oxygen Cardiovascular: Regular rate, Regular Rhythm, Normal S1, Normal S2, No murmurs Abdomen: Bowel Sounds Present, Soft, Non Tender, Non-Distended, No Hepato- splenomegaly Extremities: No clubbing, No cyanosis, No edema, Capillary Refill Less than 3 Seconds Skin: No rashes, No breakdown Musculoskeletal: No Tenderness to Palpation of Joints or Extremities Lymphatic: No Cervical, Supraclavicular, or Inguinal Adenopathy Neurological: Cranial nerves II-XII grossly intact, Neuro grossly intact, Motor Exam 5/5 strength throughout Psych/Mental Status: Normal Affect, Appropriate, Alert and oriented to time, place, person, mood and affect Current Medications Albuterol Sulfate (Ventolin Aerosols) 2.5 mg INHALATION Q6H PRN PRN PRN Reason: SOB &/OR WHEEZING Albuterol Sulfate (Ventolin Hfa (Sp)) 2 puff INHALATION Q4H PRN PRN PRN Reason: SHORTNESS OF BREATH Aspirin (Ecotrin) 81 mg PO DAILY [facility] Carvedilol (Coreg) 6.25 mg PO BID [facility] Cholecalciferol (Vitamin D) 1,000 unit PO DAILY [facility] Clopidogrel Bisulfate (Plavix) 75 mg PO DAILY [facility] Dextrose (D50w Syringe) 0 gm IV X1 PRN; Protocol PRN Reason: Hypoglycemia Enoxaparin Sodium (Lovenox) 40 mg SC DAILY [facility] Fluticasone Propionate (Flonase Nasal [place]) 2 spray NASAL DAILY [facility] Furosemide (Lasix) 40 mg PO DAILY [facility] Glucagon () 1 mg IM .X1 PRN PRN Reason: Hypoglycemia Hydralazine HCl (Apresoline) 50 mg PO TID [facility] Insulin Glargine (Lantus (Bkc)) 42 units SC DAILY [facility] Insulin Human Lispro (Humalog Kwikpen (Bkc)) 0 unit SC ACHS MITRA; Protocol Ipratropium [place] (Atrovent Nasal [place] (G)) 2 spray NASAL BID PRN PRN PRN Reason: runny nose Liraglutide (Victoza) 1.2 mg SQ DAILY [facility] Losartan Potassium (Cozaar) 25 mg PO DAILY [facility] Montelukast Sodium (Singulair) 10 mg PO QHS [facility] Nitroglycerin (Nitrostat) 0.4 mg SUBLINGUAL Q5M PRN PRN Reason: CARDIAC/CHEST PAIN Non-Formulary Medication (Budesonide/Formoterol 160/4.5) 2 puff inhalation BID [facility] Non-Formulary Medication (Guaifen/Dextromethorphan/Pe [Tusnel Dm Liquid]) 5 ml PO Q6H PRN PRN Reason: COUGH Non-Formulary Medication (Guaifen/Dextromethorphan/Pe [Tusnel Dm Liquid]) 5 ml PO Q6H PRN PRN PRN Reason: COUGH Non-Formulary Medication (Magnesium Oxide) 420 mg PO DAILY [facility] Non-Formulary Medication (Nitroglycerin) 1 spray SUBLINGUAL Q3-5M PRN PRN Reason: chest pain Non-Formulary Medication (Rosuvastatin Calcium [Crestor]) 40 mg PO QHS [facility] Non-Formulary Medication (Tiotropium [place] [Spiriva Respimat]) 2 puff inhalation DAILY [facility] Ondansetron HCl (Zofran) 4 mg IV Q8H PRN PRN PRN Reason: NAUSEA/VOMITING Prednisone () mg PO DAILY [place]RA; Taper Stop: 03/28/19 09:59 Sodium Chloride () 10 - 40 ml IV UD PRN PRN Reason: SALINE FLUSH Sodium Chloride ([place] Nasal [place]) spray NASAL BID PRN PRN PRN Reason: NASAL DRYNESS Assessment/Plan All Active Problems (Last Reviewed 03/04/19 @ 09:33 by Maria Luisa Potts, ANALI-C) Smoking (Resolved) Pneumonia, pneumococcal (Resolved) NSTEMI (non-ST elevated myocardial infarction) (Resolved) 73-year-old male admitted with a complaint of chest pain 1. Chest pain to r/o ACS * Admit to PCU with telemetry. * Initial EKG done on admission showed normal sinus rhythm with no acute ST changes. * Will cycle troponins x3. * If troponins are negative, will consider stress test tomorrow. * P.o. aspirin 81 mg daily, sublingual nitroglycerin as needed. * Also on Plavix and statin. * Get chest x-ray * 2. Chronic hypoxic respiratory failure due to COPD * Was recently diagnosed with pneumonia 1 week ago and has been on doxycycline. Uses about 2 L of oxygen at home as needed and states he has not been using it since his last stent in December 2018. However he recently got more short of breath because of the pneumonia and has been using it. * Titrate oxygen to maintain saturation above 90%. * Give breathing treatments with bronchodilators and Symbicort. * * 3. Leucocytosis: * wbc is 25. Patient is afebrile, not tachycardic or tachypneic. * CXR shows a possible right basilar focal infiltrate. * It must be noted that Patient was diagnosed with pneumonia last week and treated with doxycycline. CXR findings may therefore be as a result of the old infiltrate he has been treated for, which is in the process of resolving. * He has also been on prednisone taper, which likely accounts for the leucocytosis. * Will hold off on antibiotics for now and monitor. * If he becomes febrile, has a productive cough or becomes short of breath, will consider starting antibiotics. * 4. CAD s/p stents and CABG * Has a history of ischemic cardiomyopathy and also history of ventricular fibrillation status post ICD * Has had CABG x3 * On aspirin, statin, carvedilol and Plavix as well as losartan. 5. Type 2 diabetes mellitus * On liraglutide and Lantus 42 units daily. Insulin sliding scale. Accu-Cheks AC at bedtime. * 6. Hypertension * Blood pressure running low on admission with systolic of 92. Will hold losartan and hydralazine for now. Also hold carvedilol. * 7. COPD * On Symbicort and Singulair as well as DuoNeb's. * Does have very mild wheezing in both lung padilla. 8. CKD stage III: Stable. BMP is pending. 9. Hyperlipidemia: on statin. DVT prophylaxis; heparin. Code Visit OBSV E&M: [id number] Initial observation care L2
[2019-03-16 17:31] LABS: Bedside Glucose 214 mg/dL (70-110)
[2019-03-16] MEDS: Insulin Lispro 100 UNIT/ML INSULN.PEN SC ×2 (17:38→21:08)
--- NOTE | 2019-03-16 18:12 | RAD_ITS ---
STUDY: X-RAY CHEST REASON FOR EXAM: Male, 73 years old. CHEST PAIN WITH SOB TECHNIQUE: Frontal and lateral views COMPARISON: None. FINDINGS: Stable sternotomy wires and left-sided pacemaker. The lungs are expanded. Possible focal right basilar infiltrate. Normal size heart. Normal mediastinum and marissa. Normal visualized pulmonary arteries. Normal visualized aortic arch and descending thoracic aorta. Mild degenerative changes of the visualized thoracic spine. Normal visualized ribs, clavicles, and shoulders. There is no demonstrated abnormality of the visualized soft tissue structures of the upper abdomen. RAD/Chest PA and Lateral IMPRESSION: Possible focal right basilar infiltrate. Electronically Signed: Chriss Moy DO at 18:30 EST Tel [phone], Service support ,
[2019-03-16] MEDS: Ipratropium/Albuterol Sulfate 3 ML AMPUL.NEB INHALATION (19:49)
[2019-03-16] MEDS: Montelukast 10 MG Tablet PO (21:08)
[2019-03-16] MEDS: Atorvastatin Calcium 80 MG Tablet PO (21:08)
[2019-03-16 21:27] LABS: Absolute Lymphocyte Count 0.83 X10^3/uL (0.83-4.51); Basophil# 0.03 X10^3/uL; Basophil% 0.1 % (0-1); Eosinophil# 0.09 X10^3/uL; Eosinophils% 0.3 % (0-5); Hemoglobin 11.6 g/dL (13.0-16.5); Lymphocyte # 0.83 X10^3/ul (4.0); Lymphocyte % 3.2 % (19-41); Mean Corp Hgb Conc 33.1 g/dL (32-36); Mean Corpuscular Hgb 30.8 pg (27.0-32.0); Mean Corpuscular Volume 92.8 fL (80-94); Monocyte# 1.34 X10^3/uL; Monocyte% 5.2 % (0-10); NRBC Flagged by Analyzer 0 % (0-5); Neutrophil # 22.98 X10^3/uL (2.7-7.7); Neutrophil % 89.3 % (47-70); POSITIVE DIFFERENTIAL YES; Platelet Count 255 K/mm3 (150-450); RBC Distribution Width CV 12.2 % (11.6-14.6); RBC Distribution Width SD 41.1 fl (35.1-43.9); Red Blood Count 3.77 M/mm3 (4.6-6.2); White Blood Count 25.8 K/mm3 (4.4-11.0)
[2019-03-16 21:30] LABS: Bedside Glucose 367 mg/dL (70-110)
[2019-03-16 22:00] LABS: Differential Indicated SCAN CRITERIA MET
[2019-03-16 22:03] LABS: Anion Gap 7 (5-15); BUN 54 mg/dL (7-18); BUN/Creat Ratio 27.7 RATIO (10-20); Calcium,Total 8.4 mg/dL (8.5-10.1); Chloride 99 mmol/L (98-107); Creatinine, Serum 1.95 mg/dL (0.70-1.30); EST Glomerular Filtration Rate 36 mL/min (>60); Est Glom Filt Rate - Afr Amer 43 mL/min (>60); Estimated Creatinine Clearance 33.24 ml/min; Glucose 375 mg/dL (74-106); Potassium 4.7 mmol/L (3.5-5.1); Sodium Level 135 mmol/L (136-145)
[2019-03-16 22:08] LABS: Differential Comment SCANNED
[2019-03-16 22:36] LABS: BNP,B-Type NATRIURETIC PEPTIDE 287.2 pg/mL (0-100)
[2019-03-17] VITALS (13 sets, daily range): BP systolic 100–137; BP diastolic 46–73; PULSE 65–87; RESP 16–20; TEMP 36.7–36.9; O2SAT 93–97
[2019-03-17] MEDS: Clopidogrel Bisulfate 75 MG Tablet PO (06:04)
[2019-03-17] MEDS: Losartan Potassium 25 MG Tablet PO (06:04)
[2019-03-17] MEDS: Aspirin E.C. 81 MG Tablet PO (06:04)
[2019-03-17] MEDS: 0.9% Saline Lock 10 ML Syringe IV ×2 (06:06→22:05)
[2019-03-17 06:23] LABS: Absolute Neutrophil Count 17.9 X10^3/uL (2.0-7.7); Basophil# 0.03 X10^3/uL; Basophil% 0.1 % (0-1); Hematocrit 35.2 % (40-54); Hemoglobin 11.8 g/dL (13.0-16.5); Lymphocyte % 4.8 % (19-41); Mean Corp Hgb Conc 33.5 g/dL (32-36); Mean Corpuscular Volume 92.4 fL (80-94); Mean Platelet Vol. 8.9 fl (6.2-12.0); Monocyte# 1.74 X10^3/uL; Monocyte% 8.4 % (0-10); NRBC Flagged by Analyzer 0 % (0-5); Neutrophil # 17.87 X10^3/uL (2.7-7.7); Neutrophil % 85.9 % (47-70); POSITIVE DIFFERENTIAL YES; Platelet Count 255 K/mm3 (150-450); RBC Distribution Width SD 40.6 fl (35.1-43.9); Red Blood Count 3.81 M/mm3 (4.6-6.2); White Blood Count 20.8 K/mm3 (4.4-11.0)
[2019-03-17 06:26] LABS: Anion Gap 4 (5-15); BUN 53 mg/dL (7-18); Calcium,Total 8.6 mg/dL (8.5-10.1); Chloride 100 mmol/L (98-107); Creatinine, Serum 1.83 mg/dL (0.70-1.30); EST Glomerular Filtration Rate 39 mL/min (>60); Est Glom Filt Rate - Afr Amer 47 mL/min (>60); Estimated Creatinine Clearance 35.41 ml/min; Glucose 292 mg/dL (74-106); Potassium 4.1 mmol/L (3.5-5.1); Sodium Level 136 mmol/L (136-145)
[2019-03-17 06:27] LABS: Differential Indicated SCAN CRITERIA MET
[2019-03-17] MEDS: Budesonide Respules 0.5 MG/2 ML AMPUL.NEB. INHALATION ×2 (06:36→19:11)
[2019-03-17] MEDS: Ipratropium/Albuterol Sulfate 3 ML AMPUL.NEB INHALATION ×3 (06:36→19:11)
[2019-03-17 06:45] LABS: Bedside Glucose 276 mg/dL (70-110)
[2019-03-17] MEDS: Magnesium Oxide 400 MG Tablet PO (11:33)
[2019-03-17] MEDS: predniSONE 10 MG Tablet 40 MG PO (11:33)
[2019-03-17] MEDS: Furosemide 40 MG Tablet PO (11:35)
[2019-03-17] MEDS: Insulin Lispro 100 UNIT/ML INSULN.PEN SC ×3 (11:38→22:20)
[2019-03-17 11:55] LABS: Bedside Glucose 276 mg/dL (70-110)
--- NOTE | 2019-03-17 12:30 | STRESSREP ---
Stress Test Report Date: 03-17-2019 Procedure: Pharmacologic stress nuclear imaging study Indications: Chest pain; CAD; PCI; CABG Consent: Per the patient Procedure: The patient underwent pharmacologic (Regadenoson) evaluation with a peak heart rate of 80 beats per minute (54 %predicted maximal heart rate) and a peak blood pressure of 134/62 mmHg. The baseline ECG demonstrated sinus rhythm. The peak pharmacologic ECG demonstrated no obvious ECG changes. There were no cardiac dysrhythmias pretest, during pharmacologic infusion, or recovery. There was no complaint of chest discomfort during pharmacologic infusion or recovery. The examination was discontinued secondary to completion of protocol. Impression: 1. Pharmacologic (Regadenoson) evaluation 2. Peak pharmacologic ECG with no obvious ECG changes. 3. There were no cardiac dysrhythmias pretest, during pharmacologic infusion, or recovery. 4. Nuclear images pending Myocardial perfusion imaging study: Technique: The patient was injected with 12.0 millicuries of technetium 99m Cardiolite and subsequently rest SPECT Cardiolite nuclear imaging was obtained in the horizontal long, vertical long, and short axis views. The patient underwent pharmacologic (Regadenoson) evaluation with a peak heart rate of 80 beats per minute (54 % percent predicted maximal heart rate) and a peak blood pressure of 134/62 mmHg. The patient was injected with 35.0 millicuries of technetium 99m Cardiolite and subsequently stress SPECT Cardiolite nuclear imaging was obtained in the horizontal long, vertical long, and short axis views. A gated Cardiolite study at peak stress was obtained. Interpretation: Rest and stress SPECT Cardiolite nuclear imaging status post realignment, normalization, and attenuation correction demonstrate an area of diminished tracer uptake in portions of the basal inferolateral segments at rest and stress which extend into the mid inferolateral segments which appear to be somewhat more prominent following stress as opposed to rest. There is diminished end systolic thickening and brightening in the aforementioned areas. The gated Cardiolite study demonstrates diminished myocardial thickening and inward wall motion. The reported LVEF is 58 %. Impression: 1. Rest and stress SPECT cardiac nuclear imaging demonstrate myocardial perfusion changes appearing compatible with an area of previous myocardial injury/infarction portions of the basal towards mid inferolateral segments with post stress myocardial perfusion changes appearing compatible with an area of dayo-infarct related myocardial ischemia in portions of the mid inferolateral segments. 2. The gated Cardiolite study reports an LVEF of 58 %. This note was generated with [employer] software. It may contain incorrect words, spelling, and punctuation that were not noted in checking the note before signing.
[2019-03-17 13:15] LABS: Pathologist Review Reviewed
--- NOTE | 2019-03-17 13:15 | PCM.PN.HOSP ---
<Mark Amato - Last Filed: 03/17/19 13:15> Reason for Visit: Neck pain Subjective: The patient's chief complaint was right-sided neck pain, however he later experienced burning midsternal chest pain, took nitroglycerin, and had relief of his pain. Currently no pain. Tolerated stress test well. Stress test was abnormal. No dizziness, lightheadedness, palpitations. He has an ongoing productive cough. No fevers or chills. Mild shortness of breath. Vitals/I&O's: Vital Signs Temp Pulse Resp BP Pulse Ox 98.4 F 87 18 137/73 H 96 03/17/19 10:35 03/17/19 10:35 03/17/19 10:35 03/17/19 10:35 03/17/19 10:35 Oxygen Flow Rate (L/min) 2 Oxygen Delivery Method Nasal Cannula Weight: 219 lb 2.232 oz Body Mass Index (BMI) 32.3 Intake and Output for Last 24 Hours 03/15/19 03/16/19 03/17/19 23:59 23:59 23:59 Intake Total 770 / 770 610 / 610 Output Total 950 / 950 300 / 300 Balance -180 / -180 310 / 310 General: Alert, Oriented x3, Cooperative HEENT: Atraumatic, PERRLA, EOMI, Normocephalic Neck: Supple, No JVD, Negative Carotid Bruits Lungs: Diminished, Rhonchi Cardiovascular: Regular rate, Murmur - 3/6 systolic murmur best heard over left sternal border Abdomen: Bowel Sounds Present, Soft, Non Tender Extremities: No edema, Capillary Refill Less than 3 Seconds Skin: No rashes, No breakdown Musculoskeletal: No Tenderness to Palpation of Joints or Extremities Neurological: Cranial nerves II-XII grossly intact Psych/Mental Status: Normal Affect, Appropriate, Alert and oriented to time, place, person, mood and affect Laboratory Results 03/16/19 17:25: POC Glucose 214 H 03/16/19 17:30: Troponin I < 0.015 03/16/19 21:00: Troponin I < 0.015 03/16/19 21:00: WBC 25.8 H, RBC 3.77 L, Hgb 11.6 L, Hct 35.0 L, MCV 92.8, MCH 30.8, MCHC 33.1, RDW Std Deviation 41.1, RDW Coeff of Momo 12.2, Plt Count 255, MPV 9.0, Immature Gran % (Auto) 1.900 H, Neut % (Auto) 89.3 H, Lymph % (Auto) 3.2 L, [place] % (Auto) 5.2, Eos % (Auto) 0.3, Baso % (Auto) 0.1, Absolute Neuts (auto) 23.0 H, Absolute Lymphs (auto) 0.83, Nucleated RBC % 0, Differential Comment SCANNED 03/16/19 21:00: Sodium 135 L, Potassium 4.7, Chloride 99, Carbon Dioxide 29.0, Anion Gap 7, BUN 54 H, Creatinine 1.95 H, Estim Creat Clear Calc 33.24, Est GFR (MDRD) Af Amer 43 L, Est GFR (MDRD) Non-Af 36 L, BUN/Creatinine Ratio 27.7 H, Glucose 375 H, Calcium 8.4 L 03/16/19 21:00: B-Natriuretic Peptide 287.2 H 03/16/19 21:05: POC Glucose 367 H 03/16/19 23:05: Troponin I < 0.015 03/17/19 05:20: WBC 20.8 H, RBC 3.81 L, Hgb 11.8 L, Hct 35.2 L, MCV 92.4, MCH 31.0, MCHC 33.5, RDW Std Deviation 40.6, RDW Coeff of Momo 12.0, Plt Count 255, MPV 8.9, Immature Gran % (Auto) 0.800, Neut % (Auto) 85.9 H, Lymph % (Auto) 4.8 L, [place] % (Auto) 8.4, Eos % (Auto) 0.0, Baso % (Auto) 0.1, Absolute Neuts (auto) 17.9 H, Absolute Lymphs (auto) 1.00, Nucleated RBC % 0, Differential Comment , Diff Path Review Reviewed 03/17/19 05:20: Sodium 136, Potassium 4.1, Chloride 100, Carbon Dioxide 32.0, Anion Gap 4 L, BUN 53 H, Creatinine 1.83 H, Estim Creat Clear Calc 35.41, Est GFR (MDRD) Af Amer 47 L, Est GFR (MDRD) Non-Af 39 L, BUN/Creatinine Ratio 29.0 H, Glucose 292 H, Calcium 8.6 03/17/19 06:26: POC Glucose 276 H 03/17/19 11:37: POC Glucose 276 H Current Medications Albuterol Sulfate (Ventolin Aerosols) 2.5 mg INHALATION Q6H PRN PRN PRN Reason: SOB &/OR WHEEZING Albuterol/Ipratropium (Duoneb) 3 ml INHALATION Q6HWA.RT [facility] Last Admin: 03/17/19 06:36 Dose: 3 ml Documented by: Aspirin (Ecotrin) 81 mg PO DAILY@0800 [facility] Last Admin: 03/17/19 06:04 Dose: 81 mg Documented by: Atorvastatin Calcium (Lipitor) 80 mg PO QHS [facility] Last Admin: 03/16/19 21:08 Dose: 80 mg Documented by: Budesonide (Pulmicort Aerosol) 0.5 mg INHALATION Q12H.RT [facility] Last Admin: 03/17/19 06:36 Dose: 0.5 mg Documented by: Carvedilol (Coreg) 6.25 mg PO BID [facility] Cholecalciferol (Vitamin D) 1,000 unit PO DAILYCM [facility] Last Admin: 03/17/19 11:35 Dose: 1,000 unit Documented by: Clopidogrel Bisulfate (Plavix) 75 mg PO DAILY [facility] Last Admin: 03/17/19 06:04 Dose: 75 mg Documented by: Doxycycline Monohydrate (Doxycycline) 100 mg PO BID [facility] Stop: 03/21/19 23:59 Enoxaparin Sodium (Lovenox) 40 mg SC DAILY [facility] Last Admin: 03/17/19 08:32 Dose: Not Given Documented by: Fluticasone Propionate (Flonase Nasal [place]) 2 spray NASAL DAILY [facility] Last Admin: 03/17/19 11:35 Dose: Not Given Documented by: Furosemide (Lasix) 40 mg PO DAILY [facility] Last Admin: 03/17/19 11:35 Dose: 40 mg Documented by: Glucagon () 1 mg IM .X1 PRN PRN Reason: Hypoglycemia Guaifenesin/Phenyleph/Dextrometh (Robitussin Cf) 5 ml PO Q6H PRN PRN Reason: COUGH Hydralazine HCl (Apresoline) 50 mg PO TID [facility] Dextrose (Dextrose 10%-Water) 250 mls @ 999 mls/hr IV .Q16M PRN; Protocol PRN Reason: HYPOGLYCEMIA Insulin Glargine (Lantus ([facility])) 42 units SC DAILY [facility] Last Admin: 03/17/19 11:36 Dose: 42 u Documented by: Insulin Human Lispro (Humalog Kwikpen ([facility])) 0 unit SC ACHS [facility]; Protocol Last Admin: 03/17/19 11:38 Dose: 6 u Documented by: Ipratropium [place] (Atrovent Nasal [place] (G)) 2 spray NASAL BID PRN PRN PRN Reason: runny nose Losartan Potassium (Cozaar) 25 mg PO DAILY [facility] Last Admin: 03/17/19 06:04 Dose: 25 mg Documented by: Magnesium Oxide (Mag-Ox 400) 400 mg PO DAILYCM [facility] Last Admin: 03/17/19 11:33 Dose: 400 mg Documented by: Montelukast Sodium (Singulair) 10 mg PO QHS [facility] Last Admin: 03/16/19 21:08 Dose: 10 mg Documented by: Nitroglycerin (Nitrostat) 0.4 mg SUBLINGUAL Q5M PRN PRN Reason: CARDIAC/CHEST PAIN Ondansetron HCl (Zofran) 4 mg IV Q8H PRN PRN PRN Reason: NAUSEA/VOMITING Prednisone () 40 mg PO DAILY@0800 [facility]; Taper Stop: 03/28/19 07:59 Last Admin: 03/17/19 11:33 Dose: 40 mg Documented by: Sodium Chloride () 10 - 40 ml IV UD PRN PRN Reason: SALINE FLUSH Last Admin: 03/17/19 06:06 Dose: 10 ml Documented by: Sodium Chloride ([place] Nasal [place]) 2 spray NASAL BID PRN PRN PRN Reason: NASAL DRYNESS STROKE Vital Signs/Narrative: Vital Signs Temp Pulse Resp BP Pulse Ox 03/17/19 10:35 98.4 F 87 18 137/73 H 96 Medical Necessity - Tobacco Use Smoking Status: Former smoker Tobacco Use: Cigarettes Assessment/Plan All Active Problems (Last Reviewed 03/04/19 @ 09:33 by TACO Peck) Smoking (Resolved) Pneumonia, pneumococcal (Resolved) NSTEMI (non-ST elevated myocardial infarction) (Resolved) 1. Chest pain-abnormal stress test. Consult cardiology. Troponin negative x3. BNP mildly elevated. 2. CAD, prior CABG-continue aspirin Plavix statin, losartan, carvedilol 3. Recent community-acquired pneumonia-continue doxycycline, prednisone, aerosols, Mucinex, pep therapy, incentive spirometer. 4. CKD stage III-patient is unaware of this. We will trend. 5. COPD stage III-no exacerbation. Continue aerosols. 6. History of systolic congestive heart failure ischemic cardiomyopathy-echo in October 2018 demonstrated some pulmonary hypertension, EF of 45 to 50%, stage I diastolic dysfunction, segmental changes, and moderate to severe aortic stenosis with a valve area of 1.1 cm?. Continue Lasix 7. Hypertension-was running low, now mildly elevated. Trend 8. Hyperlipidemia-continue statin therapy. 9. DM type II-continue Lantus plus sliding scale insulin. 10. Struct of sleep apnea DVT prophylaxis: Lovenox This patient was seen by Mark Amato PA-C under the supervision of Doctor Conner. <Korina Prieto - Last Filed: 03/17/19 16:15> Vitals/I&O's: Vital Signs Temp Pulse Resp BP Pulse Ox 98.0 F 87 18 100/59 L 96 03/17/19 15:50 03/17/19 15:50 03/17/19 15:50 03/17/19 15:50 03/17/19 15:50 Oxygen Flow Rate (L/min) 2 Oxygen Delivery Method Nasal Cannula Weight: 219 lb 2.232 oz Body Mass Index (BMI) 32.3 Intake and Output for Last 24 Hours 03/15/19 03/16/19 03/17/19 23:59 23:59 23:59 Intake Total 770 / 770 610 / 610 Output Total 950 / 950 300 / 300 Balance -180 / -180 310 / 310 Laboratory Results 03/16/19 17:25: POC Glucose 214 H 03/16/19 17:30: Troponin I < 0.015 03/16/19 21:00: Troponin I < 0.015 03/16/19 21:00: WBC 25.8 H, RBC 3.77 L, Hgb 11.6 L, Hct 35.0 L, MCV 92.8, MCH 30.8, MCHC 33.1, RDW Std Deviation 41.1, RDW Coeff of Momo 12.2, Plt Count 255, MPV 9.0, Immature Gran % (Auto) 1.900 H, Neut % (Auto) 89.3 H, Lymph % (Auto) 3.2 L, [place] % (Auto) 5.2, Eos % (Auto) 0.3, Baso % (Auto) 0.1, Absolute Neuts (auto) 23.0 H, Absolute Lymphs (auto) 0.83, Nucleated RBC % 0, Differential Comment SCANNED 03/16/19 21:00: Sodium 135 L, Potassium 4.7, Chloride 99, Carbon Dioxide 29.0, Anion Gap 7, BUN 54 H, Creatinine 1.95 H, Estim Creat Clear Calc 33.24, Est GFR (MDRD) Af Amer 43 L, Est GFR (MDRD) Non-Af 36 L, BUN/Creatinine Ratio 27.7 H, Glucose 375 H, Calcium 8.4 L 03/16/19 21:00: B-Natriuretic Peptide 287.2 H 03/16/19 21:05: POC Glucose 367 H 03/16/19 23:05: Troponin I < 0.015 03/17/19 05:20: WBC 20.8 H, RBC 3.81 L, Hgb 11.8 L, Hct 35.2 L, MCV 92.4, MCH 31.0, MCHC 33.5, RDW Std Deviation 40.6, RDW Coeff of Momo 12.0, Plt Count 255, MPV 8.9, Immature Gran % (Auto) 0.800, Neut % (Auto) 85.9 H, Lymph % (Auto) 4.8 L, [place] % (Auto) 8.4, Eos % (Auto) 0.0, Baso % (Auto) 0.1, Absolute Neuts (auto) 17.9 H, Absolute Lymphs (auto) 1.00, Nucleated RBC % 0, Differential Comment , Diff Path Review Reviewed 03/17/19 05:20: Sodium 136, Potassium 4.1, Chloride 100, Carbon Dioxide 32.0, Anion Gap 4 L, BUN 53 H, Creatinine 1.83 H, Estim Creat Clear Calc 35.41, Est GFR (MDRD) Af Amer 47 L, Est GFR (MDRD) Non-Af 39 L, BUN/Creatinine Ratio 29.0 H, Glucose 292 H, Calcium 8.6 03/17/19 05:20: C-React Prot High Sens 116.00 H 03/17/19 06:26: POC Glucose 276 H 03/17/19 11:37: POC Glucose 276 H Current Medications Albuterol Sulfate (Ventolin Aerosols) 2.5 mg INHALATION Q6H PRN PRN PRN Reason: SOB &/OR WHEEZING Albuterol/Ipratropium (Duoneb) 3 ml INHALATION Q6HWA.RT [facility] Last Admin: 03/17/19 13:16 Dose: 3 ml Documented by: Aspirin (Ecotrin) 81 mg PO DAILY@0800 [facility] Last Admin: 03/17/19 06:04 Dose: 81 mg Documented by: Atorvastatin Calcium (Lipitor) 80 mg PO QHS [facility] Last Admin: 03/16/19 21:08 Dose: 80 mg Documented by: Budesonide (Pulmicort Aerosol) 0.5 mg INHALATION Q12H.RT [facility] Last Admin: 03/17/19 06:36 Dose: 0.5 mg Documented by: Carvedilol (Coreg) 6.25 mg PO BID [facility] Cholecalciferol (Vitamin D) 1,000 unit PO DAILYCM [facility] Last Admin: 03/17/19 11:35 Dose: 1,000 unit Documented by: Clopidogrel Bisulfate (Plavix) 75 mg PO DAILY [facility] Last Admin: 03/17/19 06:04 Dose: 75 mg Documented by: Diphenhydramine HCl (Benadryl) 50 mg PO X1 ONE Stop: 03/18/19 06:01 Doxycycline Monohydrate (Doxycycline) 100 mg PO BID [facility] Stop: 03/21/19 23:59 Last Admin: 03/17/19 14:31 Dose: 100 mg Documented by: Enoxaparin Sodium (Lovenox) 40 mg SC DAILY [facility] Last Admin: 03/17/19 08:32 Dose: Not Given Documented by: Fluticasone Propionate (Flonase Nasal [place]) 2 spray NASAL DAILY [facility] Last Admin: 03/17/19 11:35 Dose: Not Given Documented by: Furosemide (Lasix) 40 mg PO DAILY [facility] Last Admin: 03/17/19 11:35 Dose: 40 mg Documented by: Glucagon () 1 mg IM .X1 PRN PRN Reason: Hypoglycemia Guaifenesin/Phenyleph/Dextrometh (Robitussin Cf) 5 ml PO Q6H PRN PRN Reason: COUGH Hydralazine HCl (Apresoline) 50 mg PO TID [facility] Dextrose (Dextrose 10%-Water) 250 mls @ 999 mls/hr IV .Q16M PRN; Protocol PRN Reason: HYPOGLYCEMIA Sodium Chloride () 1,000 mls @ 0 mls/hr IV .Q0M [facility] Insulin Glargine (Lantus (Bk)) 42 units SC DAILY [facility] Last Admin: 03/17/19 11:36 Dose: 42 u Documented by: Insulin Human Lispro (Humalog Kwikpen ([facility])) 0 unit SC ACHS [facility]; Protocol Last Admin: 03/17/19 11:38 Dose: 6 u Documented by: Ipratropium [place] (Atrovent Nasal [place] (G)) 2 spray NASAL BID PRN PRN PRN Reason: runny nose Losartan Potassium (Cozaar) 25 mg PO DAILY [facility] Last Admin: 03/17/19 06:04 Dose: 25 mg Documented by: [facility] ([facility]Ox 400) [facility] Last Admin: 03/17/19 11:33 Dose: 400 mg Documented by: Montelukast Sodium (Singulair) 10 mg PO QHS [facility] Last Admin: 03/16/19 21:08 Dose: 10 mg Documented by: Nitroglycerin (Nitrostat) 0.4 mg SUBLINGUAL Q5M PRN PRN Reason: CARDIAC/CHEST PAIN Ondansetron HCl (Zofran) 4 mg IV Q8H PRN PRN PRN Reason: NAUSEA/VOMITING Prednisone () 40 mg PO DAILY@0800 [facility]; Taper Stop: 03/28/19 07:59 Last Admin: 03/17/19 11:33 Dose: 40 mg Documented by: Sodium Chloride () 10 - 40 ml IV UD PRN PRN Reason: SALINE FLUSH Last Admin: 03/17/19 06:06 Dose: 10 ml Documented by: Sodium Chloride ([place] Nasal [place]) 2 spray NASAL BID PRN PRN PRN Reason: NASAL DRYNESS STROKE Vital Signs/Narrative: Vital Signs Temp Pulse Resp BP Pulse Ox 03/17/19 15:50 98.0 F 87 18 100/59 L 96 03/17/19 15:08 80 Assessment/Plan Patient seen by Mark Amato PA-C under my supervision Patient was admitted with a complaint of right-sided neck pain and substernal chest pain. Patient seen and examined today. Chest pain has resolved. He feels much better. He still has a mild cough which is nonproductive. He denies any fever or chills, nausea vomiting or diarrhea. Review systems otherwise negative. Troponins x3 were negative and per cardiology recommendations, patient to have stress echo today. o/e: Vital Signs Height 5 ft 9 in Weight: 219 lb 2.232 oz Weight in Pounds 219.1 lbs Pulse Ox 96 Temperature 98.0 F Pulse Rate 87 Respiratory Rate 18 Blood Pressure [2nd BP] 99/43 Blood Pressure 100/59 Blood Pressure Position [2nd Semi-Fowlers BP] Blood Pressure Position Semi-Fowlers General: Alert, Oriented x3, Cooperative, No apparent distress HEENT: Atraumatic, PERRLA, EOMI, Normocephalic Oral: Moist Mucosa Neck: Supple, No JVD, Negative Carotid Bruits Lungs: - - diminished breath sounds bibasally, with mild wheezing. on 2L of oxygen Cardiovascular: Regular rate, Regular Rhythm, Normal S1, Normal S2, No murmurs Abdomen: Bowel Sounds Present, Soft, Non Tender, Non-Distended, No Hepato-splenomegaly Extremities: No clubbing, No cyanosis, No edema, Capillary Refill Less than 3 Seconds Skin: No rashes, No breakdown Musculoskeletal: No Tenderness to Palpation of Joints or Extremities Lymphatic: No Cervical, Supraclavicular, or Inguinal Adenopathy Neurological: Cranial nerves II-XII grossly intact, Neuro grossly intact, Motor Exam 5/5 strength throughout Psych/Mental Status: Normal Affect, Appropriate, Alert and oriented to time, place, person, mood and affect Patient had stress test today which showed myocardial perfusion changes compatible with an area of previous myocardial injury on post-rest myocardial perfusion changes appearing compatible with an area of dayo-infarct related myocardial ischemia and portions of the mid inferolateral segments. Cardiology consulted and is to have cardiac cath tomorrow. Continue aspirin and Plavix, statin, losartan and carvedilol. To continue patient's doxycycline for community-acquired pneumonia as he had had just a 3-day course of it at time of admission. Rest of management as per Mark Amato PA-C's notes which I reviewed and endorsed. Code Visit Inpatient E&M: 01125 Subs Hosp L3
--- NOTE | 2019-03-17 14:19 | CHAPLAIN ---
Type of Pastoral Visit _x__ Initial Visit ___ Follow-up Visit ___ On-call Visit ___ General Patient Visit ___ Spiritual Assessment ___ Family Conference ___ Bereavement ___ Rapid Response ___ Code Blue ___ Other (describe below) Pastoral Care Referral From _x__ Patient ___ Family ___ Nurse ___ Physician ___ Extrusion Former ___ Quality Systems Technician ___ Other (describe below) Sacrament/Intervention _x__ Active listening ___ Anointing ___ Samaritan ___ Bereavement ___ Communion ___ Christine exploration ___ ___ Life review _x__ Prayer ___ Reconciliation ___ Sacrament of Sick ___ Supportive presence ___ Wedding ___ Other (describe below) Pastoral Comments contacted uatsdin for patient
[2019-03-17] MEDS: Doxycycline 100 MG CAPSULE PO ×2 (14:31→21:38)
--- NOTE | 2019-03-17 14:43 | ECHOCS_ITS ---
Reason For Study: CP Procedure This was a 2D Doppler, Color Flow transthoracic echocardiogram. The study was technically difficult. Contrast injection was performed. Exam performed portable in patient room. Left Ventricle Moderate concentric left ventricular hypertrophy. The estimated ejection fraction is 65 %. Normal diastology for age. Infero-Basal: Mildly hypokinetic. Right Ventricle Mildly dilated right ventricle. Normal systolic function. Atria Normal left atrium. Normal right atrium. Normal atrial septum. Mitral Valve The mitral valve is structurally normal. No prolapse or stenosis seen. Trivial mitral valve insufficiency. Tricuspid Valve Normal tricuspid valve. Trivial tricuspid valve insufficiency. Right ventricular systolic pressure estimated to be 38 mmHg. Mild pulmonary hypertension. Aortic Valve Trisinus/trileaflet aortic valve. Moderate diffuse aortic valve thickening. Moderate focal aortic valve calcification. Immobile right coronary cusp. Moderate aortic stenosis. Peak aortic valve gradient 56 mmHg. Mean aortic valve gradient 30 mmHg. Calculated aortic valve area (continuity equation) is 0.8-1.0 cm2. Trivial aortic valve insufficiency. Pulmonic Valve Normal pulmonic valve. Great Vessels Normal aortic root. Mild atherosclerosis of the aortic arch. Normal inferior vena cava. Inferior vena cava collapse with sniff. Pericardium/Pleural No pericardial effusion. Medication Diluted definity 3ml given slow IV push to enhance endocardial definition. MMode/2D Measurements & Calculations LVIDd: 5.3 cm IVSd: 1.5 cm LVOT diam: 2.0 cm LVIDs: 3.8 cm LVPWd: 1.2 cm RVDd: 3.8 cm FS: 28.3 % LVOT area: 3.1 cm2 Ao root diam: 3.8 cm LAV(MOD-bp): 66.4 ml LA A4 area: 21.1 cm2 LA dimension: 4.5 cm LAV(MOD-bp) Indexed: 30.9 ml/m2 LAV(MOD-sp2): 70.2 ml LAV(MOD-sp4): 62.9 ml RA A4 area: 15.1 cm2 Time Measurements MV dec time: 0.20 sec Doppler Measurements & Calculations MV E max flaquito: 92.3 cm/sec Lat Peak E' Flaquito: 11.8 cm/sec Med Peak E' Flaquito: 7.3 cm/sec MV A max flaquito: 103.1 cm/sec E/E' lat: 7.8 E/E' med: 12.7 MV E/A: 0.90 MV V2 max: 107.0 cm/sec MV P1/2t max flaquito: 96.6 cm/sec Ao V2 max: 374.0 cm/sec MV max P.6 mmHg MV P1/2t: 105.7 msec Ao max P.0 mmHg MV V2 mean: 59.4 cm/sec MV dec slope: 267.8 cm/sec2 Ao V2 mean: 251.3 cm/sec MV mean P.6 mmHg Ao mean P.8 mmHg MV V2 VTI: 31.2 cm MVA(P1/2t): 2.1 cm2 Ao V2 VTI: 79.3 cm MVA(VTI): 2.6 cm2 LULA(I,D): 1.0 cm2 LULA(V,D): 0.88 cm2 AI max flaquito: 348.0 cm/sec LV V1 max: 106.6 cm/sec SV(LVOT): 81.1 ml AI max P.4 mmHg LV V1 max P.5 mmHg AI dec slope: 347.7 cm/sec2 LV V1 mean P.4 mmHg AI P1/2t: 293.1 msec LV V1 mean: 72.5 cm/sec LV V1 VTI: 26.2 cm PA V2 max: 133.8 cm/sec TR max flaquito: 289.4 cm/sec TR max P.5 mmHg Interpretation Summary Moderate concentric left ventricular hypertrophy. The estimated ejection fraction is 65 %. Normal diastology for age. Infero-Basal: Mildly hypokinetic Mildly dilated right ventricle. Trivial mitral valve insufficiency. Trivial tricuspid valve insufficiency. Right ventricular systolic pressure estimated to be 38 mmHg. Mild pulmonary hypertension. Immobile right coronary cusp. Moderate aortic stenosis. Peak aortic valve gradient 56 mmHg. Mean aortic valve gradient 30 mmHg. Calculated aortic valve area (continuity equation) is 0.8-1.0 cm2. Trivial aortic valve insufficiency. Compared to echo report dated , LV function has normalized and aortic valve gradients are slightly worse. The study was technically difficult. Contrast injection was performed. Ordering Physician: Eliezer Ruiz Referring Physician: Korina Prieto Performed By: Diego Vilchis RCS
--- NOTE | 2019-03-17 14:44 | CON.PCM_ITS ---
Problem List (1) Smoking Status: Resolved Comment: Appropriate for low-dose CT lung cancer screening due in October 2019, will remain appropriate for annual screening through 2022. (2) Essential hypertension Status: Chronic (3) Ischemic cardiomyopathy Status: Chronic (4) S/P CABG x 3 Status: Chronic Comment: SINGH to LAD, SVG to PDA, SVG to [facility]V [facility] 1996 (5) Atherosclerosis of coronary artery bypass graft(s) without angina pectoris Status: Chronic Qualifiers: Comment: Successful PTCA/ODILON distal LCX with a 2.25 x 20 Promus Synergy stent,10/26/2018 per DJN @ [facility] Patient is also status post three-vessel bypass surgery at [facility] in 1998, with subsequent catheterizations and stents over the last 5 years, the specifics of which are difficult to interpret (6) Stented coronary artery Status: Chronic Comment: TAXUS ODILON to RCA 2005 in [place]; 2.5 x 13 mm Cypher to septal facing grinder 06/2008;Successful PTCA/ODILON distal LCX with a 2.25 x 20 Promus Synergy stent,10/26/2018 per DJN @ [facility].12/30/18: Successful PTCA/ODILON mid LAD with a 2.25 x 28 Promus Synerg (7) Congestive heart failure Status: Chronic Qualifiers: Heart failure type: combined systolic and diastolic Heart failure chronicity: chronic Qualified Code(s): I50.42 - Chronic combined systolic (congestive) and diastolic (congestive) heart failure Reason for Consult Date of Consultation: 03/17/19 Reason for Consultation: Coronary artery disease status post CABG, status post angioplasty in October and December 2018, hypertension, hyperlipidemia, ischemic cardiomyopathy, History of Present Illness: The patient is a 73 year old M with a history of hypertension, hypercholesterolemia, diabetes, coronary disease status post bypass surgery at [facility] in 1998, ischemic cardiomyopathy status post AICD, status post angioplasty and drug-eluting stent to the distal left circumflex in October 2018 at [facility] by myself, followed by staged procedure of his mid LAD that was not protected by his SINGH bypass in December 2018. At that time the patient had symptoms of substernal chest pain radiating to the right side of his neck which completely resolved after his intervention. The patient was participating in cardiac rehab up until last week where he developed fevers, chills, productive cough, sputum, and was diagnosed with pneumonia and placed on antibiotic therapy at an outside facility. His symptoms marginally improved, and around 3 AM on Friday morning he developed severe substernal chest pain radiating to the right side of his neck similar to his previous angina. He sought medical attention at [facility] and was transferred to [facility]. His initial EKG showed normal sinus rhythm with old inferior posterior wall myocardial infarction, no acute changes noted. His troponins have been negative. It was felt that the patient's chest pain was pleuritic in nature, and he was treated for pleuritis. In addition given his coronary disease he underwent a non-walking nuclear stress test today 03/17/2019 which demonstrated basal to inferolateral ischemia. His most recent echocardiogram performed on 10/23/2018 is as follows: Mild concentric left ventricular hypertrophy. The estimated ejection fraction is 45-50 %. Stage 1 diastolic dysfunction. Infero-Basal: Mildly hypokinetic Posterior-Basal: Mildly hypokinetic Trivial tricuspid valve insufficiency. Right ventricular systolic pressure estimated to be 35 mmHg. Fusion of the right and left coronary cusps Moderate to severe aortic stenosis, but may be underestimated due to reduced LV function. Calculated aortic valve area (continuity equation) is 1.1 cm2. Trivial aortic valve insufficiency. There is no comparison study available. Currently the patient is resting comfortably, and he has no further pleuritic chest pain. He is remained compliant with his aspirin and Plavix. Chest x-ray on admission showed a possible right focal basilar infiltrate. [] Past Medical History Allergies/Adverse Reactions: Allergies No Known Allergies Allergy (Verified 03/04/19 09:16) Home Medications: Ambulatory Orders Medication Instructions Recorded Albuterol Inhaler [Ventolin Hfa] 2 puff INHALATION Q4H PRN PRN 06/05/16 Aspirin [Lo-Dose Aspirin EC] 81 mg PO DAILY 06/05/16 Cholecalciferol (VIT D3) [Vitamin 1,000 unit PO DAILY 06/05/16 D3] Montelukast [Singulair] 10 mg PO QHS 06/05/16 Rosuvastatin Calcium [Crestor] 40 mg PO QHS 06/05/16 Sodium Chloride 0.65% [[place] Nasal 2 spry NARES BID PRN PRN 06/05/16 [place]] hydralazine 25 mg tablet 50 mg PO TID tab 11/18/18 insulin glargine 100 unit/mL (3 42 unit SUBCUT DAILY ml 12/04/18 mL) subcutaneous pen magnesium oxide 420 mg tablet 420 mg PO DAILY 12/04/18 nitroglycerin 400 mcg/spray 1 spray SUBLINGUAL Q3-5M PRN #12 g 12/04/18 translingual liraglutide 0.6 mg/0.1 mL (18 mg/3 1.2 mg SC DAILY 12/24/18 mL) subcutaneous pen injector Albuterol Aerosols [Ventolin 2.5 mg INHALATION Q6H PRN PRN 03/16/19 Aerosols] Budesonide/Formoterol 160/4.5 2 puff INHALATION BID 03/16/19 [Symbicort 160/4.5 Mcg Inhaler (SP)] Carvedilol [Coreg (Beta Suzanne)] 6.25 mg PO BID 03/16/19 Clopidogrel Bisulfate [Clopidogrel] 75 mg PO DAILY 03/16/19 Doxycycline Hyclate 100 mg PO BID 03/16/19 Fluticasone 0.05% [Flonase Nasal 2 spray NASAL DAILY 03/16/19 [place]] Furosemide [Lasix] 40 mg PO DAILY 03/16/19 Guaifen/Dextromethorphan/PE 5 ml PO Q6H PRN 03/16/19 [Tusnel Dm Liquid] Guaifen/Dextromethorphan/PE 5 ml PO Q6H PRN PRN 03/16/19 [Tusnel Dm Liquid] Ipratropium [place] 0.06% 2 spray NASAL BID PRN PRN 03/16/19 [ATROVENT NASAL SPRAY (g)] Losartan Potassium [Cozaar] 25 mg PO DAILY 03/16/19 Prednisone See Taper PO DAILY 03/16/19 Tiotropium [place] [Spiriva 2 puff INHALATION DAILY 03/16/19 Respimat] Past Medical History (Chronic Problems): Chronic Problems (Last Reviewed 03/04/19 @ 09:33 by TACO Peck) Stage 3 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 (Chronic) Presence of implantable cardioverter-defibrillator (ICD) (Chronic ~2016) [facility], revision 2004 and 2010, then 2015 Hyperlipidemia (Chronic) Essential hypertension (Chronic) Ischemic cardiomyopathy (Chronic) S/P CABG x 3 (Chronic 1996) SINGH to LAD, SVG to PDA, SVG to PLV [facility] 1996 Atherosclerosis of coronary artery bypass graft(s) without angina pectoris (Chronic) Successful PTCA/ODILON distal LCX with a 2.25 x 20 Promus Synergy stent,10/26/2018 per DJN @ [facility] Patient is also status post three-vessel bypass surgery at [facility] in 1998, with subsequent catheterizations and stents over the last 5 years, the specifics of which are difficult to interpret Atherosclerosis of coronary artery of [place] heart (Chronic) Successful PTCA/ODILON distal LCX with a 2.25 x 20 Promus Synergy stent,10/26/2018 per DJN @ [facility] Patient is also status post three-vessel bypass surgery at [facility] in 1998, with subsequent catheterizations and stents over the last 5 years, the specifics of which are difficult to interpret Stented coronary artery (Chronic 12/30/18) TAXUS ODILON to RCA 2005 in [place]; 2.5 x 13 mm Cypher to septal facing grinder 06/2008;Successful PTCA/ODILON distal LCX with a 2.25 x 20 Promus Synergy stent,10/26/2018 per DJN @ [facility].12/30/18: Successful PTCA/ODILON mid LAD with a 2.25 x 28 Promus Synerg Congestive heart failure (Chronic) Psychiatric History: No pertinent psych hx - *Family History Maternal Family History: Family History (Last Reviewed 03/04/19 @ 09:33 by NABILA PeckC) Mother Myocardial infarction Diabetes COPD (chronic obstructive pulmonary disease) Father Myocardial infarction Sister Breast cancer Colon cancer Sister Breast cancer Sister Cancer Sister Cancer Brother Myocardial infarction Bleeding disorder Brother Diabetes Lives: Spouse/ Significant Other Smoking Status: Former smoker Tobacco Use: Cigarettes Alcohol: None Drugs: None Review of Systems - Review of Systems General: Reports: Fever, Chills, Weakness. Denies: Fatigue, Night Sweats Cardiovascular: Reports: Chest Discomfort, Chest Discomfort at Rest. Denies: Shortness of Breath, Orthopnea, PND, Peripheral Edema, Palpitations, Lightheadedness, Dizziness, Near Syncope, Syncope Respiratory: Denies: Cough, Sputum Production, Hemoptysis Gastrointestinal: Denies: Hematemesis, Hematochezia, Melena Genitourinary: Denies: Dysuria, Hematuria Skin: Denies: Rash Subjectve: Patient resting comfortably, no acute distress. Objective: Vital Signs Temp Pulse Resp BP Pulse Ox 98.4 F 87 18 137/73 H 96 03/17/19 10:35 03/17/19 10:35 03/17/19 10:35 03/17/19 10:35 03/17/19 10:35 Oxygen Flow Rate (L/min) 2 Oxygen Delivery Method Nasal Cannula Weight: 219 lb 2.232 oz Body Mass Index (BMI) 32.3 Intake and Output for Last 24 Hours 03/15/19 03/16/19 03/17/19 23:59 23:59 23:59 Intake Total 770 / 770 610 / 610 Output Total 950 / 950 300 / 300 Balance -180 / -180 310 / 310 General: Awake, Alert, Oriented x 3 HEENT: PERRL, EOMI, Sclera Non Icteric Neck: Supple, Good ROM, No Lymph Node Enlargement Lungs: Rales - Left Base Cardiovascular: Regular Rhythm, Normal S2, No Rubs, No Gallops Murmur Murmur: Grade 2/6, Holosystolic Vascular: No Carotid Bruits, Normal Femoral Pulses, Normal Radial Pulses, Normal Dorsalis Pedal Pulse, Normal Posterior Tibial Pulses Abdomen: Bowel Sounds Present, Soft, Non Tender, No HSM, No Organomegaly Extremities: No Cyanosis, No Clubbing, No edema Neurological: No Focal Motor or Sensory Deficit 03/16/19 17:30: Troponin I < 0.015 03/16/19 21:00: Troponin I < 0.015 03/16/19 21:00: WBC 25.8 H, RBC 3.77 L, Hgb 11.6 L, Hct 35.0 L, MCV 92.8, MCH 30.8, MCHC 33.1, Plt Count 255, MPV 9.0, Immature Gran % (Auto) 1.900 H, Neut % (Auto) 89.3 H, Lymph % (Auto) 3.2 L, [place] % (Auto) 5.2, Eos % (Auto) 0.3, Baso % (Auto) 0.1, Absolute Neuts (auto) 23.0 H, Nucleated RBC % 0 03/16/19 21:00: Sodium 135 L, Potassium 4.7, Chloride 99, Carbon Dioxide 29.0, Anion Gap 7, BUN 54 H, Creatinine 1.95 H, Est GFR (MDRD) Af Amer 43 L, Est GFR (MDRD) Non-Af 36 L, BUN/Creatinine Ratio 27.7 H, Glucose 375 H, Calcium 8.4 L 03/16/19 21:00: B-Natriuretic Peptide 287.2 H 03/16/19 23:05: Troponin I < 0.015 03/17/19 05:20: WBC 20.8 H, RBC 3.81 L, Hgb 11.8 L, Hct 35.2 L, MCV 92.4, MCH 31.0, MCHC 33.5, Plt Count 255, MPV 8.9, Immature Gran % (Auto) 0.800, Neut % (Auto) 85.9 H, Lymph % (Auto) 4.8 L, [place] % (Auto) 8.4, Eos % (Auto) 0.0, Baso % (Auto) 0.1, Absolute Neuts (auto) 17.9 H, Nucleated RBC % 0 03/17/19 05:20: Sodium 136, Potassium 4.1, Chloride 100, Carbon Dioxide 32.0, Anion Gap 4 L, BUN 53 H, Creatinine 1.83 H, Est GFR (MDRD) Af Amer 47 L, Est GFR (MDRD) Non-Af 39 L, BUN/Creatinine Ratio 29.0 H, Glucose 292 H, Calcium 8.6 Rhythm: EKG: As above ECHO: Pending Stress Test: Cardiac Cath: Pending PCI: CT Surgery: Holter monitor: EPS: PPM: CXR: Chest CT Scan: Assessment/Plan 1. Coronary artery disease: Patient presents with pleuritic type symptoms superimposed on a recent upper respiratory tract infection, with negative troponins. The patient has baseline inferior basal hypokinesis on previous echocardiogram in October 2018. Patient underwent a non-walking nuclear stress test which demonstrates possible basal and inferolateral ischemia consistent with his initial stenting of his left circumflex. In addition he had similar symptoms of chest pain radiating to the right side of his neck in October 2018 which triggered a repeat catheterization. I recommended the patient undergo a repeat left heart catheterization to ensure that his left circumflex and LAD stents are widely patent. Patient has known occluded right coronary artery and occluded saphenous vein graft to the right side as well. Patient had known previous patent SINGH to the LAD at our last catheterization in October 2018. In the meantime he will continue his baby aspirin, Plavix, and would recommend obtaining a hs-CRP to determine if he has pleuritis/pericarditis. In addition I recommend undergo a repeat 2D echo with Doppler to determine if he has any pericardial effusion which may be contributing to his symptoms. 2. Hyperlipidemia: Continue statin based medications. Continue Lipitor. 3. Thank you very much for the opportunity to participate in cardiac care of your patient. Consultation time took place between 215 and 2:45 PM. Code Visit Inpatient E&M: 44655 Init Hosp L2
[2019-03-17 18:55] LABS: Bedside Glucose 298 mg/dL (70-110)
[2019-03-17] MEDS: Montelukast 10 MG Tablet PO (21:38)
[2019-03-17] MEDS: Atorvastatin Calcium 80 MG Tablet PO (21:38)
[2019-03-17 22:48] LABS: Glucose 538 mg/dL (74-106)
[2019-03-18] VITALS (12 sets, daily range): BP systolic 112–159; BP diastolic 51–71; PULSE 59–65; RESP 14–16; TEMP 36.6–36.8; O2SAT 95–98
[2019-03-18] MEDS: Clopidogrel Bisulfate 75 MG Tablet PO (05:00)
[2019-03-18] MEDS: Losartan Potassium 25 MG Tablet PO (05:00)
[2019-03-18] MEDS: Aspirin E.C. 81 MG Tablet PO (05:00)
[2019-03-18 05:56] LABS: Anion Gap 5 (5-15); BUN 54 mg/dL (7-18); Calcium,Total 8.9 mg/dL (8.5-10.1); Chloride 102 mmol/L (98-107); EST Glomerular Filtration Rate 39 mL/min (>60); Est Glom Filt Rate - Afr Amer 48 mL/min (>60); Glucose 226 mg/dL (74-106); Potassium 4.1 mmol/L (3.5-5.1); Sodium Level 139 mmol/L (136-145)
[2019-03-18 06:46] LABS: Bedside Glucose 194 mg/dL (70-110)
[2019-03-18] MEDS: DiphenhydrAMINE 25 MG Capsule 50 MG PO (06:55)
[2019-03-18] MEDS: 0.9% Saline Lock 10 ML Syringe IV (06:55)
--- NOTE | 2019-03-18 06:55 | NURSING ---
Report given to laboratory chemical assistant RN at this time. They are ready for pt.
[2019-03-18 08:16] LABS: Bedside Glucose > 500 mg/dL (70-110)
[2019-03-18 08:16] LABS: Bedside Glucose > 500 mg/dL (70-110)
[2019-03-18] MEDS: Insulin Lispro 100 UNIT/ML INSULN.PEN SC ×2 (09:39→12:15)
[2019-03-18] MEDS: predniSONE 10 MG Tablet 40 MG PO (09:44)
[2019-03-18] MEDS: Magnesium Oxide 400 MG Tablet PO (09:44)
[2019-03-18] MEDS: Doxycycline 100 MG CAPSULE PO (09:44)
[2019-03-18] MEDS: Senna/Docusate Sodium 1 Tablet 2 TABLET PO (09:45)
[2019-03-18] MEDS: Furosemide 40 MG Tablet PO (09:45)
[2019-03-18 09:46] LABS: Bedside Glucose 155 mg/dL (70-110)
[2019-03-18] MEDS: Fluticasone 0.05% 1 SPRAY NASAL.SRY 2 SPRAY NASAL (10:31)
--- NOTE | 2019-03-18 11:00 | CASEMGMT ---
Addendum entered by David Dinero 03/18/19 11:36: Reviewed [facility] with pt. Pt signed form, copy made and placed on chart, and original given to pt. Form faxed to [facility]. H/P, progress notes, VS's, labs, discharge summary, and d/c instructions all faxed to [facility] and to [facility] at this time. Original Note: RN CM POWER PRESS TENDER CM to room to meet with patient for initial transition planning/care coordination assessment. RN JOSELINE introduced self and role at [facility]. Pt voices understanding and consents to assessment at this time. Pt resting in bed in no distress at this time. Pt is A/O at this time and answers all questions appropriately. Care providers, pharmacy, and demographics verified/updated at this time. PCP: Dr Jones @ [facility] Preferred Pharmacy: [facility] for short-term medications. [facility] for long-term. Insurance: [facility] A [facility], [employer], [place] Prescription Benefit: Through [place] Living Will/HPOA: does not have LW or HCPOA . Interested in more information but does not want to talk with SW at this time to complete paperwork. Provided information on advanced directives and given Social Service rac card with number to call if chooses in the future to utilize [facility] social work for advanced directive completion. LNOK: 2 adult children Living Arrangements: Lives with girlfriend/significant other, Emily, in one-story home w/3 steps to enter. Pt states he is independent with ADL's. Emily does home management tasks. Pt states he manages his own medications. Transportation: Pt states drives self and states no transportation concerns at this time. DME: has the following DME: Glucometer--states is works properly and he has all the needed supplies for it, nebulizer, cane. Has O2 @ 2 L/M continuously [facility]. Has concentrator and portability. Portable tank is in his van to be able to go home on. Pt states no need for further DME at this time. has a CPAP machine but does not use it. HHC/SNF: No history of SNF. has had [place] visiting nurse through the [place] in the past. Denies need for HHC at this time. Pt wishes to return home and states has no concerns with going home at time of discharge. Pt did ask about getting hospital records to be able to take to [facility] for his appt. Pt made aware he would get a copy of the discharge instructions at discharge and if he would like other documents, that these can be obtained through Medical Records. Pt also made aware medical records will be faxed to [facility] and to [facility] by this RN CM. Pt voices appreciation. CM to follow for any discharge planning/needs. Advised pt to ask for CM if any further questions/concerns/needs arise. Voices understanding. Pt plan: Home Discharge Plan: Home Anna JIANG RN CM
--- NOTE | 2019-03-18 11:17 | PCM.DC ---
You will use the following diet at home:: Cardiac Your food should be the consistency of: Regular Your liquids should be the consistency of: Regular/Thin Discharge Activity: Return to Normal Activity Weight Bearing Status: Weight bearing as tolerated Call your doctor if you observe: Shortness of breath, Dizziness, Chest pain, Increased palpitations (irregular heartbeat), Uncontrolled pain Instructions: What Is Angina? Allergies/Adverse Reactions: Allergies No Known Allergies Allergy (Verified 03/04/19 09:16) Medications to take at Discharge Albuterol Inhaler [Ventolin Hfa] 2 puff INHALATION Q4H PRN PRN 06/05/16 Aspirin [Lo-Dose Aspirin EC] 81 mg PO DAILY 06/05/16 Cholecalciferol (VIT D3) [Vitamin D3] 1,000 unit PO DAILY 06/05/16 Montelukast [Singulair] 10 mg PO QHS 06/05/16 Rosuvastatin Calcium [Crestor] 40 mg PO QHS 06/05/16 Sodium Chloride 0.65% [[place] Nasal [place]] 2 spry NARES BID PRN PRN 06/05/16 hydralazine 25 mg tablet 50 mg PO TID tab 11/18/18 insulin glargine 100 unit/mL (3 mL) subcutaneous pen 42 unit SUBCUT DAILY ml 12/04/18 magnesium oxide 420 mg tablet 420 mg PO DAILY 12/04/18 nitroglycerin 400 mcg/spray translingual 1 spray SUBLINGUAL Q3-5M PRN #12 g 12/04/18 liraglutide 0.6 mg/0.1 mL (18 mg/3 mL) subcutaneous pen injector 1.2 mg SC DAILY 12/24/18 Albuterol Aerosols [Ventolin Aerosols] 2.5 mg INHALATION Q6H PRN PRN 03/16/19 Budesonide/Formoterol 160/4.5 [Symbicort 160/4.5 Mcg Inhaler (SP)] 2 puff INHALATION BID 03/16/19 Carvedilol [Coreg (Beta Suzanne)] 6.25 mg PO BID 03/16/19 Clopidogrel Bisulfate [Clopidogrel] 75 mg PO DAILY 03/16/19 Fluticasone 0.05% [Flonase Nasal [place]] 2 spray NASAL DAILY 03/16/19 Furosemide [Lasix] 40 mg PO DAILY 03/16/19 Guaifen/Dextromethorphan/PE [Tusnel Dm Liquid] 5 ml PO Q6H PRN 03/16/19 Guaifen/Dextromethorphan/PE [Tusnel Dm Liquid] 5 ml PO Q6H PRN PRN 03/16/19 Ipratropium [place] 0.06% [ATROVENT NASAL SPRAY] 2 spray NASAL BID PRN PRN 03/16/19 Losartan Potassium [Cozaar] 25 mg PO DAILY 03/16/19 Tiotropium [place] [Spiriva Respimat] 2 puff INHALATION DAILY 03/16/19 Ibuprofen 400 mg PO TID PRN PRN #20 tab 03/18/19 The following prescriptions were given: Ibuprofen 400 mg PO TID PRN PRN #20 tab PRN Reason: Pain Score 1-10/10 Transmission Status: Pending to [id number] Primary Care Physician: Care Physician,No Primary [Primary Care Provider] - Test Results: Test results from this visit will be discussed in further detail at your follow-up appointment, if applicable. Please Follow Up With: Eliezer Ruiz MD When: 1-2 weeks; call office for appointment Proposed Discharge Date: 03/18/19
--- NOTE | 2019-03-18 11:21 | PCM.DC.SUM ---
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) Presence of implantable cardioverter-defibrillator (ICD) (Chronic ~2016) Per [place] records, AICD in 2006, revision 2004 and 2010, then 2016 Hyperlipidemia (Chronic) Essential hypertension (Chronic) Ischemic cardiomyopathy (Chronic) S/P CABG x 3 (Chronic 1996) SINGH to LAD, SVG to PDA, SVG to PLV [facility] 1996 Atherosclerosis of coronary artery bypass graft(s) without angina pectoris (Chronic) Successful PTCA/ODILON distal LCX with a 2.25 x 20 Promus Synergy stent,10/26/2018 per DJ @ [facility] Patient is also status post three-vessel bypass surgery at [facility] in 1998, with subsequent catheterizations and stents over the last 5 years, the specifics of which are difficult to interpret Atherosclerosis of coronary artery of [place] heart (Chronic) Successful PTCA/ODILON distal LCX with a 2.25 x 20 Promus Synergy stent,10/26/2018 per DJN @ [facility] Patient is also status post three-vessel bypass surgery at [facility] in 1998, with subsequent catheterizations and stents over the last 5 years, the specifics of which are difficult to interpret Stented coronary artery (Chronic 12/30/18) TAXUS ODILON to RCA 2005 in [place]; 2.5 x 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 Electronically Signed: Chriss Moy DO at 18:30 EST Tel [phone], Service support , cardiology- Dr Ruiz Operations: None Procedures: Cardiac catheterization, Stress test Summary of Care Provided: The patient is a 73 year old M with an extensive past medical history as listed. He was admitted as a transfer from [facility] on 03/16/2019 with a complaint of chest pain. Patient states that he woke up this morning having right-sided chest pain and right-sided neck pain which was mildly relieved by nitro with no aggravating or relieving factors. He had no associated chest pain or palpitations, dizziness, nausea vomiting or diarrhea or lightheadedness or dizziness. He does think the chest pain was pleuritic in nature. Of note, patient was managed for pneumonia last week when he went to the urgent care center on account of shortness of breath. He was diagnosed with pneumonia and put on p.o. doxycycline. He still does have a residual cough which is nonproductive and has occasional wheezing. He is on 2 L of oxygen at home and states that after his most recent stent placement in December 2018, he was told he did not need the oxygen again. However he still has the canister at home and when he got the pneumonia, he noted that his saturation was going down to the high 80s so he has been using the oxygen. Review of stems otherwise negative. In [place], initial troponin was negative and EKG showed normal sinus rhythm with no acute ST changes. He was admitted to be managed for chest pain rule out ACS. Troponins x3 were negative. He had a stress test on 03/17/2018 which showed areas of post stress myocardial infusion changes appearing compatible with an area of karime-infarct related myocardial ischemia and portions of the mid inferolateral segments and left ventricular EF was 58%. He had 2D echocardiogram which showed moderate concentric left ventricular hypertrophy with EF of 65% and normal diastolic for age with mild hypokinesis of the inferior basal wright and moderate aortic stenosis with a peak aortic gradient of 58 mmHg and mean aortic valve gradient of 30 mmHg. He had cardiac cath on 03/18/2019 which showed widely patent grafts. Patient remained stable and was discharged home on 03/18/2019. Cardiology recommended p.o. ibuprofen 200 mg 3 times daily for 5 days. He is to follow-up with his primary care doctor and cardiology within 1 to 2 weeks. Patient seen and examined prior to discharge. He felt well after the cardiac cath and had no complaints. Review of systems is otherwise negative. Labs and vitals reviewed. Home medications reviewed and reconciled. o/e: Vital Signs Height 5 ft 9 in Weight: 219 lb 2.232 oz Weight in Pounds 219.1 lbs Pulse Ox 95 Temperature 98.3 F Pulse Rate 61 Respiratory Rate 16 Blood Pressure [2nd BP] 99/43 Blood Pressure 124/58 Blood Pressure Position [2nd Semi-Fowlers BP] Blood Pressure Position Semi-Fowlers General: Alert, Oriented x3, Cooperative, No apparent distress HEENT: Atraumatic, PERRLA, EOMI, Normocephalic Oral: Moist Mucosa Neck: Supple, No JVD, Negative Carotid Bruits Lungs: - - diminished breath sounds bibasally, with mild wheezing. on 2L of oxygen, which is his baseline. Cardiovascular: Regular rate, Regular Rhythm, Normal S1, Normal S2, No murmurs Abdomen: Bowel Sounds Present, Soft, Non Tender, Non-Distended, No Hepato-splenomegaly Extremities: No clubbing, No cyanosis, No edema, Capillary Refill Less than 3 Seconds Skin: No rashes, No breakdown Musculoskeletal: No Tenderness to Palpation of Joints or Extremities, right groin- cath site is non tender and not swollen. Sand bag in place Lymphatic: No Cervical, Supraclavicular, or Inguinal Adenopathy Neurological: Cranial nerves II-XII grossly intact, Neuro grossly intact, Motor Exam 5/5 strength throughout Psych/Mental Status: Normal Affect, Appropriate, Alert and oriented to time, place, person, mood and affect Patient to be discharged home after he has completed the mandatory 4-hour bedrest after cardiac cath. He is to follow-up with his primary care doctor and cardiology. - Physical Exam Vitals/I&O's: Vital Signs Temp Pulse Resp BP Pulse Ox 98.2 F 65 16 126/59 H 96 03/18/19 08:25 03/18/19 10:25 03/18/19 10:25 03/18/19 10:25 03/18/19 10:25 Oxygen Flow Rate (L/min) 2 Oxygen Delivery Method Nasal Cannula Weight: 219 lb 2.232 oz Body Mass Index (BMI) 32.3 Intake and Output for Last 24 Hours 03/16/19 03/17/19 03/18/19 23:59 23:59 23:59 Intake Total 770 / 770 1360 / 1360 50 / 50 Output Total 950 / 950 1825 / 1825 625 / 625 Balance -180 / -180 -465 / -465 -575 / -575 Laboratory Results 03/17/19 05:20: Diff Path Review Reviewed 03/17/19 05:20: C-React Prot High Sens 116.00 H 03/17/19 11:37: POC Glucose 276 H 03/17/19 16:20: POC Glucose 298 H 03/17/19 21:39: POC Glucose > 500 H* 03/17/19 21:44: POC Glucose > 500 H* 03/17/19 22:20: Glucose 538 H* 03/18/19 05:23: Sodium 139, Potassium 4.1, Chloride 102, Carbon Dioxide 32.0, Anion Gap 5, BUN 54 H, Creatinine 1.80 H, Estim Creat Clear Calc 36.00, Est GFR (MDRD) Af Amer 48 L, Est GFR (MDRD) Non-Af 39 L, BUN/Creatinine Ratio 30.0 H, Glucose 226 H, Calcium 8.9 03/18/19 06:26: POC Glucose 194 H 03/18/19 09:37: POC Glucose 155 H Current Medications Albuterol Sulfate (Ventolin Aerosols) 2.5 mg INHALATION Q6H PRN PRN PRN Reason: SOB &/OR WHEEZING Albuterol/Ipratropium (Duoneb) 3 ml INHALATION Q6HWA.RT [facility] Last Admin: 03/18/19 07:10 Dose: Not Given Documented by: Aspirin (Ecotrin) 81 mg PO DAILY@0800 [facility] Last Admin: 03/18/19 05:00 Dose: 81 mg Documented by: Atorvastatin Calcium (Lipitor) 80 mg PO QHS [facility] Last Admin: 03/17/19 21:38 Dose: 80 mg Documented by: Budesonide (Pulmicort Aerosol) 0.5 mg INHALATION Q12H.RT [facility] Last Admin: 03/18/19 07:10 Dose: Not Given Documented by: Carvedilol (Coreg) 6.25 mg PO BID [facility] Cholecalciferol ([facility]itamin D) [facility] Last Admin: 03/18/19 09:44 Dose: 1,000 unit Documented by: Clopidogrel Bisulfate (Plavix) 75 mg PO DAILY [facility] Last Admin: 03/18/19 05:00 Dose: 75 mg Documented by: Doxycycline Monohydrate (Doxycycline) 100 mg PO BID [facility] Stop: 03/21/19 23:59 Last Admin: 03/18/19 09:44 Dose: 100 mg Documented by: Fluticasone Propionate (Flonase Nasal [place]) 2 spray NASAL DAILY [facility] Last Admin: 03/18/19 10:31 Dose: 2 spray Documented by: Furosemide (Lasix) 40 mg PO DAILY [facility] Last Admin: 03/18/19 09:45 Dose: 40 mg Documented by: Glucagon () 1 mg IM .X1 PRN PRN Reason: Hypoglycemia Guaifenesin/Phenyleph/Dextrometh (Robitussin Cf) 5 ml PO Q6H PRN PRN Reason: COUGH Heparin Sodium (Beef Lung) (Heparin 500 Unit/5 Ml (100/Ml)) 500 unit IV UD PRN PRN Reason: HEPARIN FLUSH Hydralazine HCl (Apresoline) 50 mg PO TID [facility] Dextrose (Dextrose 10%-Water) 250 mls @ 999 mls/hr IV .Q16M PRN; Protocol PRN Reason: HYPOGLYCEMIA Sodium Chloride () 1,000 mls @ 0 mls/hr IV .Q0M [facility] Ibuprofen (Motrin) 400 mg PO [facility] Stop: 03/23/19 07:01 Insulin Glargine (Lantus ([facility])) 42 units SC DAILY [facility] Last Admin: 03/18/19 09:44 Dose: 42 u Documented by: Insulin Human Lispro (Humalog Kwikpen ([facility])) 0 unit SC [facility]; Protocol Last Admin: 03/18/19 09:39 Dose: 3 u Documented by: Ipratropium [place] (Atrovent Nasal [place] (G)) 2 spray NASAL BID PRN PRN PRN Reason: runny nose Labetalol HCl (Trandate) 5 mg IV X1 PRN PRN Reason: SBP >160 Losartan Potassium (Cozaar) 25 mg PO DAILY [facility] Last Admin: 03/18/19 05:00 Dose: 25 mg Documented by: Magnesium Oxide (Mag-Ox 400) [facility] Last Admin: 03/18/19 09:44 Dose: 400 mg Documented by: Montelukast Sodium (Singulair) 10 mg PO QHS [facility] Last Admin: 03/17/19 21:38 Dose: 10 mg Documented by: Nitroglycerin (Nitrostat) 0.4 mg SUBLINGUAL Q5M PRN PRN Reason: CARDIAC/CHEST PAIN Ondansetron HCl (Zofran) 4 mg IV Q8H PRN PRN PRN Reason: NAUSEA/VOMITING Prednisone () 40 mg PO DAILY@0800 [facility]; Taper Stop: 03/28/19 07:59 Last Admin: 03/18/19 09:44 Dose: 40 mg Documented by: Senna/Docusate Sodium (Senokot-S, Karime-Colace) 2 tablet PO DAILY PRN PRN PRN Reason: CONSTIPATION Last Admin: 03/18/19 09:45 Dose: 2 tablet Documented by: Sodium Chloride () 10 - 40 ml IV UD PRN PRN Reason: SALINE FLUSH Last Admin: 03/18/19 06:55 Dose: 20 ml Documented by: Sodium Chloride ([place] Nasal [place]) 2 spray NASAL BID PRN PRN PRN Reason: NASAL DRYNESS Discharge Diet: Low fat/ Low Cholesterol Discharge Activity: Return to Normal Activity Weight Bearing Status: Weight bearing as tolerated Call your doctor if you observe: Shortness of breath, Dizziness, Chest pain, Increased palpitations (irregular heartbeat), Uncontrolled pain Home Medications: Medications to take at Discharge Albuterol Inhaler [Ventolin Hfa] 2 puff INHALATION Q4H PRN PRN 06/05/16 Aspirin [Lo-Dose Aspirin EC] 81 mg PO DAILY 06/05/16 Cholecalciferol (VIT D3) [Vitamin D3] 1,000 unit PO DAILY 06/05/16 Montelukast [Singulair] 10 mg PO QHS 06/05/16 Rosuvastatin Calcium [Crestor] 40 mg PO QHS 06/05/16 Sodium Chloride 0.65% [[place] Nasal [place]] 2 spry NARES BID PRN PRN 06/05/16 hydralazine 25 mg tablet 50 mg PO TID tab 11/18/18 insulin glargine 100 unit/mL (3 mL) subcutaneous pen 42 unit SUBCUT DAILY ml 12/04/18 magnesium oxide 420 mg tablet 420 mg PO DAILY 12/04/18 nitroglycerin 400 mcg/spray translingual 1 spray SUBLINGUAL Q3-5M PRN #12 g 12/04/18 liraglutide 0.6 mg/0.1 mL (18 mg/3 mL) subcutaneous pen injector 1.2 mg SC DAILY 12/24/18 Albuterol Aerosols [Ventolin Aerosols] 2.5 mg INHALATION Q6H PRN PRN 03/16/19 Budesonide/Formoterol 160/4.5 [Symbicort 160/4.5 Mcg Inhaler (SP)] 2 puff INHALATION BID 03/16/19 Carvedilol [Coreg (Beta Suzanne)] 6.25 mg PO BID 03/16/19 Clopidogrel Bisulfate [Clopidogrel] 75 mg PO DAILY 03/16/19 Fluticasone 0.05% [Flonase Nasal [place]] 2 spray NASAL DAILY 03/16/19 Furosemide [Lasix] 40 mg PO DAILY 03/16/19 Guaifen/Dextromethorphan/PE [Tusnel Dm Liquid] 5 ml PO Q6H PRN PRN 03/16/19 Ipratropium [place] 0.06% [ATROVENT NASAL SPRAY] 2 spray NASAL BID PRN PRN 03/16/19 Losartan Potassium [Cozaar] 25 mg PO DAILY 03/16/19 Tiotropium [place] [Spiriva Respimat] 2 puff INHALATION DAILY 03/16/19 Ibuprofen 400 mg PO TID PRN PRN #20 tab 03/18/19 Following Prescrptions Were Given to Patient: Ibuprofen 400 mg PO TID PRN PRN #20 tab PRN Reason: Pain Score 1-10/10 Transmission Status: Received by [facility] [id number] Primary Care Physician: Care Physician,No Primary [Primary Care Provider] - Please Follow Up With: Eliezer Ruiz MD When: 1-2 weeks; call office for appointment Patient Instructions: What Is Angina? Disposition: Home Minutes spent on discharge:: 45 Patient Condition:: Stable Medical Necessity - Tobacco Use Smoking Status: Former smoker Tobacco Use: Cigarettes Meaningful Use Info Meaningful Use Diagnoses (Choose all that apply): None applicable Code Visit Inpatient E&M: 74627 Disch Hosp
--- NOTE | 2019-03-18 11:46 | PHA.DC.MR ---
Pharmacy Service has performed discharge medication reconciliation for this patient. The patient's discharge medication list was reviewed for discrepancies and discrepancies were resolved. Home Medications Albuterol Inhaler [Ventolin Hfa] 2 puff INHALATION Q4H PRN PRN 06/05/16 Aspirin [Lo-Dose Aspirin EC] 81 mg PO DAILY 06/05/16 Cholecalciferol (VIT D3) [Vitamin D3] 1,000 unit PO DAILY 06/05/16 Montelukast [Singulair] 10 mg PO QHS 06/05/16 Rosuvastatin Calcium [Crestor] 40 mg PO QHS 06/05/16 Sodium Chloride 0.65% [[place] Nasal [place]] 2 spry NARES BID PRN PRN 06/05/16 hydralazine 25 mg tablet 50 mg PO TID tab 11/18/18 insulin glargine 100 unit/mL (3 mL) subcutaneous pen 42 unit SUBCUT DAILY ml 12/04/18 magnesium oxide 420 mg tablet 420 mg PO DAILY 12/04/18 nitroglycerin 400 mcg/spray translingual 1 spray SUBLINGUAL Q3-5M PRN #12 g 12/04/18 liraglutide 0.6 mg/0.1 mL (18 mg/3 mL) subcutaneous pen injector 1.2 mg SC DAILY 12/24/18 Albuterol Aerosols [Ventolin Aerosols] 2.5 mg INHALATION Q6H PRN PRN 03/16/19 Budesonide/Formoterol 160/4.5 [Symbicort 160/4.5 Mcg Inhaler (SP)] 2 puff INHALATION BID 03/16/19 Carvedilol [Coreg (Beta Suzanne)] 6.25 mg PO BID 03/16/19 Clopidogrel Bisulfate [Clopidogrel] 75 mg PO DAILY 03/16/19 Fluticasone 0.05% [Flonase Nasal [place]] 2 spray NASAL DAILY 03/16/19 Furosemide [Lasix] 40 mg PO DAILY 03/16/19 Guaifen/Dextromethorphan/PE [Tusnel Dm Liquid] 5 ml PO Q6H PRN PRN 03/16/19 Ipratropium [place] 0.06% [ATROVENT NASAL SPRAY] 2 spray NASAL BID PRN PRN 03/16/19 Losartan Potassium [Cozaar] 25 mg PO DAILY 03/16/19 Tiotropium [place] [Spiriva Respimat] 2 puff INHALATION DAILY 03/16/19 Ibuprofen 400 mg PO TID PRN PRN #20 tab 03/18/19
[2019-03-18] MEDS: Ibuprofen 400 MG Tablet PO (12:15)
[2019-03-18 12:20] LABS: Bedside Glucose 290 mg/dL (70-110)
--- NOTE | 2019-03-18 12:45 | NURSING ---
AMBULATED PT IN [facility] POST HEART CATH BED REST. NO COMPLICATIONS, PT TOLERATED WELL. SITE REMAINS SOFT, DSG C/D/I.
--- NOTE | 2019-03-22 13:35 | CL.D_ITS ---
Patient Name: VIVEK ZACARIAS Study Date: 03/18/2019 Performing: Eliezer Ruiz MD Ht: 69 inches 175 cm : 1945 Wt: 218.5 lbs 99 kg Age: 73 Gender: male BSA: 2.14 PROCEDURE(S) PERFORMED BW00-VKG/COR/LV CLINICAL PROFILE AND INDICATIONS Indications: ACS > 24 hrs, Stable Known CAD, LV Dysfunction, Valvular Disease Heart Failure: NYHA Class: 1, Newly Diagnosed: No, Heart Failure Type: Systolic Stress/Imaging Date: 03/17/2019Stress Test with SPECT MPI: Positive Low Risk Angina Classification Anginal Classification w/in 2 Weeks: CCS IV Comorbidities/Risk Factors: Hypertension Dyslipidemia Prior CHF Prior PCI Prior CABG Diabetes Mellitus: Diabetes Therapy: Insulin CONCLUSIONS Segmented LV systolic dysfunction- Mild LVEF: by LV gram 50-55 % Elevated Left Ventricular End Diastolic Pressure Non obstructive coronary arteries Widely patent LCX and LAD stents Aortic Valve Stenosis- Mild RECOMMENDATIONS Management as per referring Software Integrator Probable pleuritic CP from recent pneumonia. Pt will most likely always have inferior/posterior isch emia given known occluded RCA and SVG to RCA. SINGH to LAD widely patent from previous cath in 9, so not relooked today. Manual sheath removal. DESCRIPTION OF PROCEDURE The patient arrived to the procedure lab. The risks and benefits of the procedure as well as a full d escription of our services here and current unavailability of surgical backup were fully explained to the patient and/or their significant other prior to the catheterization. The Timeout was completed, verifying the correct patient and procedure. The patient's procedural site was prepped and draped in the usual fashion. Local anesthetic was given subcutaneously to right groin region with Lidocaine 2%. Using a modified Seldinger technique, arterial access was obtained via the right femoral artery, a 4 Fr sheath was inserted Left Coronary Artery selective angiography was performed in multiple views us ing a 4 Fr. JL5 catheter. Left Ventriculography was performed in [place] projection using a 4 Fr. Pigtail catheter. LV to AO pullback pressures were then recorded.The arterial sheath was pulled and manual c ompression applied until hemostasis is achieved. CORONARY ANGIOGRAPHY DOMINANCE: Right Dominant LEFT HEART ASSESSMENT Left Ventricular Ejection Fraction: by LV Gram 50-55 % Inferior Basal Hypokinesis - Mild to Moderate Depressed Left Ventricular systolic function LVEDP: 15 mmHg Elevated Left Ventricular End Diastolic Pressure LEFT MAIN: Non-obstructive LEFT ANTERIOR DESCENDING ARTERY: MID LAD: Previously placed stent is patent CIRCUMFLEX ARTERY: MID CIRC: Previously placed stent is patent RIGHT CORONARY ARTERY: is occluded(known from previous cath) GRAFTS: SINGH graft to the LAD is patent (known from previous cath) Saphenous Vein graft to the RCA is totally occluded (known from previous cath) Saphenous Vein graft to the CIRC is totally occluded (known from previous cath) COMPLICATIONS No Complications PROCEDURE MEDICATIONS Oxygen: 2 L/min via nasal cannula SUMMARY OF HEMODYNAMIC DATA Time AIR REST ECG 07:22:34 AO 163/68 (104) SA 07:42:49 LV 199/-5, 23 07:46:59 LV 189/-4, 23 07:47:05 LVp 189/0, 15 07:47:21 AOp 178/66 (107) 07:47:26 RM AIR REST 08:17:17 Signed By Eliezer Ruiz MD On 03/22/2019 1:34:48 PM Eliezer Ruiz MD
== END 2019-03-18 14:20 | disposition home or self-care (01) | DRG 286 ==
PROVIDERS: Hospitalist; Internal Medicine Cardiovascular Disease; Physician Assistant; Admitting Provider Student in an Organized Health Care Education/Training Program; Referring Provider Student in an Organized Health Care Education/Training Program; Visit Provider Student in an Organized Health Care Education/Training Program
DX: R07.89 Other chest pain (principal); J18.9 Pneumonia, unspecified organism; J96.11 Chronic respiratory failure with hypoxia; J44.0 Chronic obstructive pulmonary disease with (acute) lower respiratory infection; I13.0 Hypertensive heart and chronic kidney disease with heart failure and stage 1 through stage 4 chronic kidney disease, or unspecified chronic kidney disease; I50.22 Chronic systolic (congestive) heart failure; Z99.81 Dependence on supplemental oxygen; Z95.5 Presence of coronary angioplasty implant and graft; Z79.899 Other long term (current) drug therapy; Z79.51 Long term (current) use of inhaled steroids; Z79.82 Long term (current) use of aspirin; Z79.4 Long term (current) use of insulin; Z87.891 Personal history of nicotine dependence; Z79.02 Long term (current) use of antithrombotics/antiplatelets; Z79.2 Long term (current) use of antibiotics; Z95.810 Presence of automatic (implantable) cardiac defibrillator; I25.5 Ischemic cardiomyopathy; I25.10 Atherosclerotic heart disease of native coronary artery without angina pectoris; Z95.1 Presence of aortocoronary bypass graft; N18.3 Chronic kidney disease, stage 3 (moderate); E11.22 Type 2 diabetes mellitus with diabetic chronic kidney disease; E78.5 Hyperlipidemia, unspecified; I35.0 Nonrheumatic aortic (valve) stenosis; I27.20 Pulmonary hypertension, unspecified
CPT/HCPCS: 36415; 71046; 78452; 80048; 82947; 82962; 83880; 84484; 85025; 86141; 93005; 93017; 93306; 93458; 94640; 94667; A9500; Q9957; Q9967; A4216; C1769; C1894; C8929; J2785

== ENCOUNTER → 2019-04-20 | Outpatient (CLI) | payer MEDICARE, OTHER, SELFPAY ==
[2019-03-16 14:48] VITALS: BMI 32.3
[2019-04-20 13:50] VITALS: BMI 34.0
--- NOTE | 2019-04-20 14:15 | CT_ITS ---
STUDY: LOW DOSE CT LUNG CANCER SCREENING REASON FOR EXAM: Male, 73 years old. LUNG SCREEN, 44 YR SMOKER X 2PPD, QUIT 10-12 YRS AGO, COPD, SOB RADIATION DOSAGE (If Supplied By Facility): CTDIvol = ( 3.04 ) mGy, DLP = ( 107.21 ) mGycm TECHNIQUE: No contrast was administered. Low dose technique was utilized (average mAS-38 and kVp 120). 1.25 mm axial source images with a slice interval of 1.25-mm were reconstructed in lung windows. 2.5 mm axial source images with a slice interval of 2.5-mm were reconstructed in lung windows. 5.0 mm axial source images with a slice interval of 5.0-mm were reconstructed in soft tissue windows. Nodule measured using lung windows on PACS and/or independent workstation with automated measurement of minimum and maximum diameter. Nodule measurement reported as average diameter rounded to the nearest whole number. Growth is defined as an increase ins size of greater than 1.5 mm. COMPARISON: None. NODULES: There is a 2.6 cm x 1.3 cm x 1.5 cm slightly irregular nodule in the anterior aspect of the right middle lobe adjacent to the heart. This most likely represent an area of scarring although a PET scan is recommended for further evaluation. Focal area of spiculation is also seen in the anterior lateral aspect of the left lower lobe suggestive of scarring. Emphysema: Mild emphysematous changes. Aorta: Atherosclerotic changes of the aortic arch. Coronary arteries: Coronary artery calcification. Prior CABG. Heart: Left-sided dual chamber pacemaker. Mediastinal nodes: Small benign-appearing mediastinal lymph nodes. Other chest and abdominal findings: Degenerative changes of the thoracic spine. CT/Low Dose CT Lung Screening IMPRESSION: Lung-RADS category 4B - Chest CT with or without contrast, PET/CT and/or tissue sampling can be obtained depending on the probability of malignancy and comorbidities. IMPORTANT NOTES FOR USE: ACR Lung-RADS Version 1.0 Assessment Categories Release Date: June 14, 2013 Category: Coded 0-4 bases on nodule(s) with highest degree of suspicion. Negative screen is defined as categories 1 and 2; a positive screen is defined as categories 3 and 4. Category 3 and 4A nodules that are unchanged on interval CT should be coded as category 2, and individuals returned to screening in 12 months. Category 4X: Category 3 or 4 nodules with additional imaging findings that increase the suspicion of lung cancer, such as spiculation, GGN that doubles in size in 1 year, enlarged lymph notes, etc. Category Modifiers: S (significant finding unrelated to lung cancer) and C (prior history of treated lung cancer) may be added to the 0-4 Lung-RADS Electronically Signed: Marcos Maharaj, at 15:00 EST , Service support ,
== END | disposition home or self-care (01) ==
LOC: CT 14:15
PROVIDERS: Referring Provider Nurse Practitioner Family; Visit Provider Nurse Practitioner Family
DX: Z87.891 Personal history of nicotine dependence (principal); Z12.2 Encounter for screening for malignant neoplasm of respiratory organs
CPT/HCPCS: G0297

== ENCOUNTER → 2019-05-31 | Outpatient (CLI) | payer OTHER, MEDICARE, SELFPAY ==
[2019-04-22 08:35] VITALS: BMI 34.2
--- NOTE | 2019-05-31 07:23 | PET_ITS ---
EXAM TYPE: PET/CT Localization Skull Base to Mid-thigh INDICATION/HISTORY: LUNG nodules-initial PET/CT for evaluation of lung nodules seen on low-dose chest CT COMPARISON: Chest CT 04/20/2019 TECHNIQUE: PET/CT was performed from the skull base to the mid thighs after the intravenous administration of 15 mCi of F-18 FDG. Preprocedure blood glucose was 124 mg/dl. Low dose CT images were obtained for attenuation correction and localization purposes. FINDINGS: Neck: No suspicious hypermetabolic activity. No cervical adenopathy. Chest: No suspicious hypermetabolic activity. Again seen is an irregular nodule in the anterior right middle lobe with extension to the anterior pleura this measures approximately 2.5 x 1.1 cm, unchanged when measured in a similar manner, without FDG uptake.. Left anterior chest wall pacemaker with leads in the right atrium and right ventricle. Mild low aortic atherosclerotic disease. There is marked coronary artery calcifications and coronary artery stent. Status post median sternotomy and CABG. Mild bilateral gynecomastia. Abdomen/pelvis: No suspicious hypermetabolic activity. Post cholecystectomy. Prostatomegaly. There is fat-containing right inguinal hernia. Sigmoid diverticulosis without evidence of acute diverticulitis. Small fat-containing umbilical and superior abdominal ventral hernias. Normal appendix. There is marked aortobiiliac atherosclerotic. Bone marrow: No suspicious hypermetabolic activity. PET/PET/CT Tumor Base -Thigh Init IMPRESSION: 1. Irregular nodule in the anterior right middle lobe with extension to the anterior pleura does not demonstrate FDG uptake.. This does not exclude malignancy. Consider short-term chest CT follow-up in 3 months and/or tissue sampling. Prior imaging would be useful for comparison as well. 2. No suspicious hypermetabolic activity. 3. Prostatomegaly. 4. Fat-containing ventral, umbilical and right inguinal hernias. Electronically Signed: Suzanne Prajapati, at 12:47 EDT Tel , Service support ,
== END | disposition home or self-care (01) ==
LOC: ONC 07:57
PROVIDERS: Referring Provider Nurse Practitioner Acute Care; Visit Provider Nurse Practitioner Acute Care
DX: R91.8 Other nonspecific abnormal finding of lung field (principal)
CPT/HCPCS: 78815; A9552

== ENCOUNTER → 2019-06-08 | Outpatient (CLI) | payer MEDICARE, OTHER, SELFPAY ==
[2019-06-08 10:19] VITALS: BMI 32.9
[2019-06-08 13:08] LABS: Anion Gap 3 (5-15); BUN 48 mg/dL (7-18); BUN/Creat Ratio 26.8 RATIO (10-20); Calcium,Total 9.8 mg/dL (8.5-10.1); Chloride 103 mmol/L (98-107); Cholesterol 146 mg/dL (200); Creatinine, Serum 1.79 mg/dL (0.70-1.30); EST Glomerular Filtration Rate 40 mL/min (>60); Est Glom Filt Rate - Afr Amer 48 mL/min (>60); Glucose 188 mg/dL (74-106); High Density Lipoprotein 40 mg/dL; Potassium 4.2 mmol/L (3.5-5.1); Sodium Level 139 mmol/L (136-145); Triglycerides 261 mg/dL; Very Low Density Lipoprotein 52 mg/dL (5-40)
[2019-06-08 13:15] LABS: Hemoglobin A1c 8.4 % (4.2-6.3)
[2019-06-08 13:20] LABS: Microalbumin,Random Urine 6.3 mg/L (NO RANGE EST.); Microalbumin:Creatinine Ratio 39.1 mg/g CRE (<30 mg/g CRE)
== END | disposition home or self-care (01) ==
LOC: LABSPEC 12:18
PROVIDERS: Referring Provider Internal Medicine; Visit Provider Internal Medicine
DX: E11.9 Type 2 diabetes mellitus without complications (principal); E78.5 Hyperlipidemia, unspecified
CPT/HCPCS: 80048; 80061; 82043; 82570; 83036

== ENCOUNTER 2019-08-11 18:08 | Outpatient (RCR) | payer MEDICARE, OTHER, SELFPAY ==
[2019-08-04 13:25] VITALS: BMI 32.9
--- NOTE | 2019-08-12 10:17 | HP.PTEVAL_ITS ---
Patient's Visit Information VIVEK ZACARIAS is a 73 year old M referred to Physical Therapy by Dr. Ghassan Munoz MD with a diagnosis of dizziness and giddiness. Date of Evaluation: 08/11/19 Physical Therapist: NUNU Hong - Visit Plan Plan: Hold chart X 2 weeks. Pt was given my card to call in if his dizziness comes back. He has had no symptoms for 4-5 days and I could not make him dizzy while in the clinic. - Subjective Pt gets up and he is really wobbly.... First time this happened he stood up to quick and fell to the bed. He got up and thr room was spinning and he took a shower and it calmed down. It has been two week. [facility] needed to see the heart Dr. He talked to the heart Dr nurse and the nurse said with his BP and blood sugar doing ok it was not his heart. He went to the Dr Munoz and she gave him pills to take when he gets dizzy. He has taken 3 of the pills. He has not had any issue the last couple of days. He has to watch getting up quick. He is on BP meds but was able to get off of one med cause he was running lower. He has a Pcemaker and defibilator. No dizziness when he rolls over in bed. Sometimes when he lays in bed and reaches for his water he will get dizzy, looking to the R , or getting up to the right. It lasts less than 1 minute. Sometimes if feels like the room is spinning. He has no CASTRO and no ear ringing. No problems working on his tablet. Pt reports that he has not had any dizzy spells in 4-5 days. - Objective -B Hallpike for dizziness and/or nystagmus. -Roll test. -dizziness and good movement with horizontal and vertical smooth pusuit. -dizziness with VOR X 1 with vertical and horizontal. FGA: - Balance Scores Functional Gait Assessment Score: 18 % Disability: 40.0000 - Rehabilitation Potential Rehabilitation Potential: Good - Anticipated Interventions Thank you for the opportunity to evaluate your patient. For Medicare and Medicare HMO plans, please review the plan of care and approve it. It will need to be FAXED BACK to us at [phone] for Medicare purposes. For Medicare only, by signing this I certify the plan of care. Please let me know if there are questions or concerns regarding this plan of care. Physician Signature: ____Date:
== END 2019-08-11 19:00 | disposition home or self-care (01) ==
LOC: PT 18:08
PROVIDERS: PCP Internal Medicine; Referring Provider Internal Medicine; Visit Provider Internal Medicine
DX: R42 Dizziness and giddiness (principal)
CPT/HCPCS: 97161

== ENCOUNTER 2021-05-22 16:09 | Outpatient (CLI) | payer MEDICARE, OTHER, SELFPAY | END 2021-05-22 23:59 | disposition home or self-care (01) | PROVIDERS: PCP Internal Medicine; Referring Provider Physician Assistant; Visit Provider Physician Assistant | DX: J20.9 Acute bronchitis, unspecified (principal) | CPT/HCPCS: 87070 ==

== ENCOUNTER 2021-05-27 14:10 | Emergency (ER) | payer OTHER, MEDICARE, SELFPAY ==
[2021-05-27 14:10] VITALS: BP 147/80; PULSE 62; RESP 14; TEMP 35.9; O2SAT 85; BMI 30.8
[2021-05-27 14:19] VITALS: O2SAT 98
--- NOTE | 2021-05-27 14:30 | EKG12_ITS ---
Test Reason : SOB Blood Pressure : / mmHG Vent. Rate : 056 BPM Atrial Rate : 056 BPM P-R Int : 164 ms QRS Dur : 084 ms QT Int : 468 ms P-R-T Axes : 077 021 060 degrees QTc Int : 451 ms Somatic / Motion Artifact Sinus bradycardia Nonspecific ST & T wave abnormality Abnormal ECG Confirmed by CELINA GUTIERRES, ADRIEN ([id number]), greeting card editor LISS MATUTE ([id number]) on 05/30/2021 11:26:59 AM Referred By: CINDI Confirmed By:ADRIEN PATRICK MD
[2021-05-27] MEDS: MethylPREDNISolone 125 MG/2 ML Vial IV (14:41)
[2021-05-27] MEDS: Aspirin 81 MG TAB.CHEW 324 MG PO (14:41)
[2021-05-27] MEDS: Ipratropium/Albuterol Sulfate 3 ML AMPUL.NEB INHALATION (14:42)
[2021-05-27] MEDS: Albuterol 2.5 MG/3 ML VIAL.NEB. INHALATION (14:42)
[2021-05-27 14:43] LABS: Absolute Lymphocyte Count 0.92 X10^3/uL (0.83-4.51); Absolute Neutrophil Count 5.5 X10^3/uL (2.0-7.7); Basophil# 0.02 X10^3/uL; Basophil% 0.3 % (0-1); Eosinophil# 0.06 X10^3/uL; Eosinophils% 0.8 % (0-5); Hematocrit 41.8 % (40-54); Hemoglobin 13.9 g/dL (13.0-16.5); Lymphocyte # 0.92 X10^3/ul (0.83-4.51); Lymphocyte % 12.8 % (19-41); Mean Corp Hgb Conc 33.3 g/dL (32-36); Mean Corpuscular Hgb 30.5 pg (27.0-32.0); Mean Corpuscular Volume 91.9 fL (80-94); Mean Platelet Vol. 8.8 fl (6.2-12.0); Monocyte# 0.68 X10^3/uL; Monocyte% 9.5 % (0-10); NRBC Flagged by Analyzer 0 % (0-5); Neutrophil # 5.48 X10^3/uL (2.7-7.7); Neutrophil % 76.2 % (47-70); Platelet Count 184 K/mm3 (150-450); RBC Distribution Width CV 13.2 % (11.6-14.6); RBC Distribution Width SD 45.6 fl (35.1-43.9); Red Blood Count 4.55 M/mm3 (4.6-6.2); White Blood Count 7.2 K/mm3 (4.4-11.0)
[2021-05-27 14:49] VITALS: PULSE 57; RESP 18
[2021-05-27 14:52] LABS: BUN 49 mg/dL (7-18); Creatinine, Serum 2.16 mg/dL (0.70-1.30); EST Glomerular Filtration Rate 32 mL/min (>60); Estimated Creatinine Clearance 29.09 ml/min; Glucose 210 mg/dL (74-106)
[2021-05-27 14:53] LABS: Anion Gap 3 (5-15); BUN/Creat Ratio 22.7 RATIO (10-20); Calcium,Total 9.1 mg/dL (8.5-10.1); Chloride 102 mmol/L (98-107); Est Glom Filt Rate - Afr Amer 38 mL/min (>60); Potassium 5.2 mmol/L (3.5-5.1); Sodium Level 135 mmol/L (136-145)
[2021-05-27 14:58] VITALS: BP 141/57; PULSE 59; RESP 18; O2SAT 97
--- NOTE | 2021-05-27 14:58 | RAD_ITS ---
STUDY: X-RAY CHEST REASON FOR EXAM: Male, 75 years old. dyspnea TECHNIQUE: Single AP portable view of the chest. COMPARISON: 05/08/2021 FINDINGS: Left pacer in place. Sternotomy wires are midline. Valvular prosthesis in place. The lungs are clear and expanded. Mild bilateral basilar atelectasis is present. There is no demonstrated pleural abnormality. Normal size heart. Normal mediastinum and marissa. Normal visualized pulmonary arteries. There is atherosclerotic calcification of the aortic arch with tortuosity. Normal visualized thoracic spine. Normal visualized ribs, clavicles, and shoulders. There is no demonstrated abnormality of the visualized soft tissue structures of the upper abdomen. RAD/Chest 1 View (Portable) IMPRESSION: No evidence of acute cardiopulmonary process. Electronically Signed: Yoav Irvin DO at 15:44 EDT ,
[2021-05-27 14:59] LABS: Troponin-I HS (w/2H Reflex) 15 pg/mL (3.0-78.0)
--- NOTE | 2021-05-27 15:15 | ED.VIS.DYS ---
HPI History of Present Illness Chief Complaint: Shortness of Breath Narrative Narrative: 75-year-old male with history of COPD presenting with shortness of breath. Patient states it has been about a week. He was initially seen at urgent care and he states he had a throat culture which was negative. He states he was not put on antibiotics because of this. He is not been on any prednisone. He has worsening wheezing and does do home nebulizers at home. He is not having any chest pain. He denies lower extremity swelling. No fever. He does admit to a cough. Patient anticoagulated on Eliquis. He denies hemoptysis, black or bloody stools. 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 Atherosclerosis of coronary artery of [place] heart Carpal tunnel syndrome, bilateral Chronic respiratory failure CKD (chronic kidney disease) stage 3, GFR 30-59 ml/min Congestive heart failure COPD (chronic obstructive pulmonary disease) COPD exacerbation DM2 (diabetes mellitus, type 2) Essential hypertension History of ventricular fibrillation Hyperlipidemia Ischemic cardiomyopathy NSTEMI (non-ST elevated myocardial infarction) DEMAR (obstructive sleep apnea) Pneumonia, pneumococcal Pulmonary nodules Home Medications albuterol sulfate 2 puff INHALATION Q4H PRN PRN 06/05/16 [History Last Taken 03/16/19] aspirin 81 mg PO DAILY 06/05/16 [History Last Taken 03/16/19] montelukast 10 mg PO QHS 06/05/16 [History Last Taken 03/15/19] rosuvastatin 40 mg PO QHS 06/05/16 [History Last Taken 03/15/19] sodium chloride 2 spry NARES BID PRN PRN 06/05/16 [History Last Taken Unknown] nitroglycerin 400 mcg/spray translingual 1 spray SUBLINGUAL Q3-5M PRN #12 g 12/04/18 [Rx Last Taken 03/16/19] liraglutide 0.6 mg/0.1 mL (18 mg/3 mL) subcutaneous pen injector 1.2 mg SC DAILY 12/24/18 [History Last Taken 03/16/19] albuterol sulfate 2.5 mg INHALATION Q6H PRN PRN 03/16/19 [History Last Taken 03/16/19] carvedilol 6.25 mg PO BID 03/16/19 [History Last Taken 03/16/19] clopidogrel 75 mg PO DAILY 03/16/19 [History Last Taken 03/16/19] furosemide 20 mg PO 03/16/19 [History Last Taken 03/16/19] ipratropium bromide 2 spray NASAL BID PRN PRN 03/16/19 [History Last Taken Unknown] losartan 25 mg PO DAILY 03/16/19 [History Last Taken 03/16/19] ibuprofen 400 mg PO TID PRN PRN #20 tab 03/18/19 [Rx Last Taken Unknown] magnesium oxide 420 mg tablet 420 mg PO BID tab 04/20/19 [History Last Taken Unknown] spacer #1 ea 06/04/19 [Rx Last Taken Unknown] pantoprazole 40 mg tablet,delayed release 40 mg PO DAILY #60 tab 06/08/19 [Rx Last Taken Unknown] cholecalciferol (vitamin D3) 25 mcg (1,000 unit) tablet 2,000 unit PO DAILY tab 06/10/19 [History Last Taken Unknown] insulin glargine 100 unit/mL (3 mL) subcutaneous pen 10 unit SUBCUT DAILY ml 06/10/19 [History Last Taken Unknown] tiotropium bromide 2.5 mcg/actuation mist for inhalation 2 puff INHALATION BID g 06/10/19 [History Last Taken Unknown] meclizine 25 mg tablet 25 mg PO TID PRN #60 tab 08/04/19 [Rx Last Taken Unknown] benzonatate 100 mg capsule 100 mg PO BID-TID PRN #15 cap 05/22/21 [Rx Last Taken Unknown] amiodarone 200 mg PO DAILY 05/27/21 [History Last Taken Unknown] apixaban 5 mg PO BID 05/27/21 [History Last Taken Unknown] atorvastatin 05/27/21 [History Last Taken Unknown] cyanocobalamin (vitamin B-12) 1,000 mcg PO DAILY 05/27/21 [History Last Taken Unknown] doxycycline hyclate 100 mg PO Q12H 5 Days #10 tab 05/27/21 [Rx Last Taken Unknown] ezetimibe mg 05/27/21 [History Last Taken Unknown] fluticasone propionate INTRANASAL 05/27/21 [History Last Taken Unknown] metformin 500 mg PO BID 05/27/21 [History Last Taken Unknown] prednisone 50 mg PO DAILY 5 Days #25 tab 05/27/21 [Rx Last Taken Unknown] Allergy/AdvReac Type Severity Reaction Status Date / Time No Known Allergies Allergy Verified 05/27/21 14:17 Family History Mother Myocardial infarction Diabetes COPD (chronic obstructive pulmonary disease) Father Myocardial infarction Sister Breast cancer Colon cancer Sister Breast cancer Sister Cancer lung cancer Sister Cancer skin cancer Brother Myocardial infarction Bleeding disorder clot in heart Brother Diabetes Surgical History History of left heart catheterization (03/18/19) Hx of cholecystectomy Presence of implantable cardioverter-defibrillator (ICD) (~2015) S/P CABG x 3 (1996) Stented coronary artery (12/30/18) Social History Smoking Status: Former smoker quit date: 02/18/08 pack-years: 90 Tobacco: How many years used: 45 how long ago did patient quit smokin years ago alcohol intake: former year quit: 1983 substance use type: does not use caffeine: Yes Type: coffee Number of servings: 2 ROS ROS ED Constitutional Constitutional ED: Denies chills or fever(s) Eyes Eyes: Denies blurry vision or diplopia ENT ENT ED: Denies rhinorrhea or sore throat Cardiovascular Cardiovascular: Denies chest pain or palpitations Respiratory/Chest Respiratory/Chest: Reports cough, dyspnea and dyspnea on exertion Gastrointestinal Gastrointestinal: Denies abdominal pain, nausea or vomiting Genitourinary Genitourinary ED: Denies dysuria or hematuria Musculoskeletal Musculoskeletal: Denies arthralgias or myalgias Integumentary Denies rash Neurologic Neurologic: Denies headache(s) Psychiatric Psychiatric: Denies anxiety or depression EXAM Physical Exam Const Vital Signs: 05/27/21 14:10 05/27/21 14:19 05/27/21 14:21 Temperature 96.6 F L Temperature Source Temporal Pulse Rate 62 Respiratory Rate 14 Respiratory Effort Short of Breath Labored Respiratory Depth Deep Respiratory Pattern Tachypnea Blood Pressure 147/80 H Blood Pressure Mean 102 Pulse Ox 85 98 Oxygen Delivery Method Room Air Nasal Cannula Oxygen Flow Rate (L/min) 2 05/27/21 14:37 05/27/21 14:49 05/27/21 14:58 Temperature Temperature Source Pulse Rate 57 L 59 L Respiratory Rate 18 18 Respiratory Effort Respiratory Depth Respiratory Pattern Normal Blood Pressure 141/57 H Blood Pressure Mean 85 Pulse Ox 97 Oxygen Delivery Method Nasal Cannula Nasal Cannula Oxygen Flow Rate (L/min) 2 3 05/27/21 15:25 Temperature Temperature Source Pulse Rate 50 L Respiratory Rate 18 Respiratory Effort Respiratory Depth Respiratory Pattern Blood Pressure 137/62 H Blood Pressure Mean 87 Pulse Ox 95 Oxygen Delivery Method Nasal Cannula Oxygen Flow Rate (L/min) 3 Positive well nourished General Appearance ED: NAD; Negative for pallor HEENT Reports moist mucous membranes atraumatic Eyes PERRL and EOMs intact bilaterally General Eye ED: Negative for pale conjunctiva Neck no lymphadenopathy and supple Resp normal respiratory effort Auscultation: wheezes expiratory wheezes Cardio regular rate and regular rhythm GI non-tender and non-distended Palpation: soft Extremity normal to inspection General Extremety ED: Negative for edema or tenderness General Extremity: Negative for edema Neuro oriented x3, CN's II-XII intact bilaterally and no sensory deficits noted Sensorium / Orientation: alert Motor Exam: strength 5/5 throughout Psych mental status grossly normal Skin General Skin Exam: Negative for jaundice or pallor Rashes: no rashes MDM MDM MDM Narrative Medical decision making narrative: Patient presenting with shortness of breath and wheezing. He has a history of COPD. He is not a smoker anymore. On arrival his pulse ox was 85% on room air and he was placed on 2 L of supplemental oxygen. He has wheezing on exam. Patient given Solu-Medrol 125 mg IV as well as breathing treatments. Due to his shortness of breath I did obtain blood work and imaging. His EKG on my interpretation shows a sinus bradycardia with a ventricular rate of 56 bpm without sign of ischemic changes. There is a lot of artifact. Patient denies any chest pain. CBC shows no leukocytosis. Hemoglobin 13.9, platelets 184. Potassium slightly elevated at 5.2.Creatinine slightly elevated at 2.16 over his baseline which is most recently about 1.8. High-sensitivity troponin is 15. Chest x-ray my interpretation shows no acute cardiopulmonary process and radiologist agree. After breathing treatments patient feels improved. He is ambulated on room air and maintaining sats of 90%. He feels well. He does not want to stay at the hospital. He was placed on prednisone burst and doxycycline for home. He is given return precautions. It is noted that the patient does have home O2 at home which is left over. He was counseled if he needs use is to return to the ER. Patient discharged home in stable condition. Impression 1. COPD exacerbation 2. Hypoxia resolved 3. Dyspnea Lab Data Attestation: I reviewed the patient's lab results. Labs: Laboratory Results - last 24 hr 05/27/21 05/27/21 05/27/21 14:34 14:34 14:34 WBC 7.2 RBC 4.55 L Hgb 13.9 Hct 41.8 MCV 91.9 MCH 30.5 MCHC 33.3 RDW Std Deviation 45.6 H RDW Coeff of Momo 13.2 Plt Count 184 MPV 8.8 Immature Gran % (Auto) 0.400 Neut % (Auto) 76.2 H Lymph % (Auto) 12.8 L [place] % (Auto) 9.5 Eos % (Auto) 0.8 Baso % (Auto) 0.3 Absolute Neuts (auto) 5.5 Absolute Lymphs (auto) 0.92 Nucleated RBC % 0 Sodium 135 L Potassium 5.2 H Chloride 102 Carbon Dioxide 30.0 Anion Gap 3 L BUN 49 H Creatinine 2.16 H Estim Creat Clear Calc 29.09 Est GFR (MDRD) Af Amer 38 L Est GFR (MDRD) Non-Af 32 L BUN/Creatinine Ratio 22.7 H Glucose 210 H Calcium 9.1 Troponin I High Sens B-Natriuretic Peptide 111.0 H 05/27/21 14:34 WBC RBC Hgb Hct MCV MCH MCHC RDW Std Deviation RDW Coeff of Momo Plt Count MPV Immature Gran % (Auto) Neut % (Auto) Lymph % (Auto) [place] % (Auto) Eos % (Auto) Baso % (Auto) Absolute Neuts (auto) Absolute Lymphs (auto) Nucleated RBC % Sodium Potassium Chloride Carbon Dioxide Anion Gap BUN Creatinine Estim Creat Clear Calc Est GFR (MDRD) Af Amer Est GFR (MDRD) Non-Af BUN/Creatinine Ratio Glucose Calcium Troponin I High Sens 15 B-Natriuretic Peptide Radiography Diagnostic Testing: Clinical Impression(s) from Imaging Studies Chest X-Ray 05/27/21 14:58 IMPRESSION: No evidence of acute cardiopulmonary process. Electronically Signed: Yoav Irvin DO at 15:44 EDT Reading Location ID and State: [facility] / [place] , Service support , Discharge Plan Triage Chief Complaint: Shortness of Breath ED Provider: [place] Dx/Rx/DC Orders Instructions: ED COPD Flare Prescriptions: New prednisone 10 mg tablet 50 mg PO DAILY 5 Days Qty: 25 RF: 0 doxycycline hyclate 100 mg tablet 100 mg PO Q12H 5 Days Qty: 10 RF: 0 No Action Victoza 2-Sheldon 0.6 mg/0.1 mL (18 mg/3 mL) pen injector 1.2 mg SC DAILY RF: 0 nitroglycerin 400 mcg/spray spray,non-aerosol 1 spray SUBLINGUAL Q3-5M PRN (Reason: chest pain) Qty: 12 RF: 3 magnesium oxide 420 mg tablet 420 mg PO BID RF: 0 (DME) spacer See Rx Instructions .ROUTE .MEDSUPPLY Qty: 1 RF: 0 pantoprazole 40 mg tablet,delayed release (DR/EC) 40 mg PO DAILY Qty: 60 RF: 2 meclizine 25 mg tablet 25 mg PO TID PRN (Reason: dizziness) Qty: 60 RF: 0 benzonatate 100 mg capsule 100 mg PO BID-TID PRN (Reason: cough) Qty: 15 RF: 0 aspirin 81 MG tablet,delayed release (DR/EC) 81 mg PO DAILY RF: 0 montelukast 10 MG tablet 10 mg PO QHS RF: 0 albuterol sulfate 1 INHALER inhaler 2 puff inhalation Q4H PRN PRN (Reason: Shortness Of Breath) RF: 0 sodium chloride 1 SPRAY aerosol,spray 2 spry NARES BID PRN PRN (Reason: Nasal Dryness) RF: 0 rosuvastatin 40 MG tablet 40 mg PO QHS RF: 0 cholecalciferol (vitamin D3) 25 mcg (1,000 unit) tablet 2,000 unit PO DAILY RF: 0 insulin glargine 100 unit/mL (3 mL) insulin pen 10 unit subcut DAILY RF: 0 albuterol sulfate 2.5 MG/3 ML solution for nebulization 2.5 mg inhalation Q6H PRN PRN (Reason: Sob &/Or Wheezing) RF: 0 clopidogrel 75 MG tablet 75 mg PO DAILY RF: 0 ipratropium bromide 1 SPRAY spray,non-aerosol 2 spray NASAL BID PRN PRN (Reason: runny nose) RF: 0 furosemide 40 MG tablet 20 mg PO RF: 0 carvedilol 6.25 MG tablet 6.25 mg PO BID RF: 0 losartan 25 MG tablet 25 mg PO DAILY RF: 0 ibuprofen 400 MG tablet 400 mg PO TID PRN PRN (Reason: Pain Score 1-10/10) Qty: 20 RF: 0 tiotropium bromide 2.5 mcg/actuation mist 2 puff inhalation BID RF: 0 amiodarone 200 mg Tablet 200 mg PO DAILY RF: 0 apixaban 5 mg Tablet 5 mg PO BID RF: 0 metformin 500 mg tablet 500 mg PO BID RF: 0 cyanocobalamin (vitamin B-12) 1,000 mcg Tablet Extended Release 1,000 mcg PO DAILY RF: 0 atorvastatin 20 mg tablet RF: 0 fluticasone propionate 50 mcg/actuation spray,suspension INTRANASAL RF: 0 ezetimibe 10 mg tablet RF: 0 [facility] [place] [facility] [facility] [Primary Care Provider] -
[2021-05-27 15:25] VITALS: BP 137/62; PULSE 50; RESP 18; O2SAT 95
[2021-05-27 15:39] VITALS: O2SAT 92
[2021-05-27] MEDS: Doxycycline 100 MG CAPSULE PO (16:00)
[2021-05-27 16:43] LABS: Reflex Troponin-HS? (from REC) Y
--- NOTE | 2021-05-29 11:35 | CASEMGMT ---
BRIAN TREVIZO Follow-up: This RN CM notified by BRIAN Avalos patient advocate that pt reports his home O2 equipment is not working. [facility] This RN CM called [facility] and confirmed with Cathleen that they do provide O2 for pt. Cathleen states one of their technicians will contact the patient and ensure his equipment is working. This RN CM contacted pt and notified him that he will be receiving a call. Pt expressed understanding and appreciation. Call also received from Tonya at the [facility] and provided update to the same. Dorcas Lee RN CM
== END 2021-05-27 16:10 | disposition home or self-care (01) ==
PROVIDERS: Emergency Provider Student in an Organized Health Care Education/Training Program; Visit Provider Student in an Organized Health Care Education/Training Program
DX: J44.1 Chronic obstructive pulmonary disease with (acute) exacerbation (principal); I50.9 Heart failure, unspecified; I13.0 Hypertensive heart and chronic kidney disease with heart failure and stage 1 through stage 4 chronic kidney disease, or unspecified chronic kidney disease; E11.22 Type 2 diabetes mellitus with diabetic chronic kidney disease; N18.30 Chronic kidney disease, stage 3 unspecified; E78.5 Hyperlipidemia, unspecified; I25.5 Ischemic cardiomyopathy; Z87.891 Personal history of nicotine dependence; I25.10 Atherosclerotic heart disease of native coronary artery without angina pectoris; Z79.01 Long term (current) use of anticoagulants; I25.2 Old myocardial infarction; G47.33 Obstructive sleep apnea (adult) (pediatric); Z79.899 Other long term (current) drug therapy; Z79.82 Long term (current) use of aspirin; Z79.02 Long term (current) use of antithrombotics/antiplatelets; Z79.84 Long term (current) use of oral hypoglycemic drugs; Z95.810 Presence of automatic (implantable) cardiac defibrillator; R06.02 Shortness of breath
CPT/HCPCS: 71045; 80048; 83880; 84484; 85025; 93005; 94640; 96374; 99285; A4216

== ENCOUNTER 2021-06-01 13:11 | Emergency (ER) | payer OTHER, SELFPAY ==
[2021-06-01] VITALS (7 sets, daily range): BP systolic 124–143; BP diastolic 56–77; PULSE 55–87; RESP 16–20; TEMP 36.4; O2SAT 92–96; BMI 32.6
--- NOTE | 2021-06-01 14:23 | EKG12_ITS ---
Test Reason : Blood Pressure : / mmHG Vent. Rate : 061 BPM Atrial Rate : 061 BPM P-R Int : 154 ms QRS Dur : 108 ms QT Int : 444 ms P-R-T Axes : 056 011 081 degrees QTc Int : 446 ms Normal sinus rhythm Inferior infarct , age undetermined Abnormal ECG Confirmed by REBECA GUTIERRES, LEA ([id number]), graphic editor NASRIN CAPELLAN ([id number]) on 06/04/2021 2:03:06 PM Referred By: TOMER Confirmed By:SHADY JOSE MD
[2021-06-01 14:39] LABS: Absolute Lymphocyte Count 0.92 X10^3/uL (0.83-4.51); Absolute Neutrophil Count 12.2 X10^3/uL (2.0-7.7); Basophil# 0.06 X10^3/uL; Basophil% 0.4 % (0-1); Eosinophil# 0.04 X10^3/uL; Eosinophils% 0.3 % (0-5); Hematocrit 41.1 % (40-54); Hemoglobin 13.9 g/dL (13.0-16.5); Lymphocyte # 0.92 X10^3/ul (0.83-4.51); Lymphocyte % 6.1 % (19-41); Mean Corp Hgb Conc 33.8 g/dL (32-36); Mean Corpuscular Hgb 30.3 pg (27.0-32.0); Mean Corpuscular Volume 89.7 fL (80-94); Mean Platelet Vol. 8.8 fl (6.2-12.0); Monocyte# 1.38 X10^3/uL; Monocyte% 9.2 % (0-10); NRBC Flagged by Analyzer 0 % (0-5); Neutrophil # 12.17 X10^3/uL (2.7-7.7); Neutrophil % 81.3 % (47-70); Platelet Count 265 K/mm3 (150-450); RBC Distribution Width CV 12.8 % (11.6-14.6); RBC Distribution Width SD 42.2 fl (35.1-43.9); Red Blood Count 4.58 M/mm3 (4.6-6.2)
[2021-06-01] MEDS: Ipratropium/Albuterol Sulfate 3 ML AMPUL.NEB INHALATION (14:39)
--- NOTE | 2021-06-01 14:39 | RAD_ITS ---
STUDY: X-RAY CHEST REASON FOR EXAM: Male, 75 years old. Cough and shortness of breath. TECHNIQUE: Single AP portable view of the chest. COMPARISON: Comparison is made with prior study dated 05/27/2021. FINDINGS: EKG electrodes are seen. A left-sided ICD is seen. The lungs are clear and expanded. There is no demonstrated pleural abnormality. Sternal cerclage wires are present from a prior sternotomy. Prior aortic valve replacement. Normal mediastinum and marissa. Normal visualized pulmonary arteries. There is atherosclerotic calcification of the aortic arch with tortuosity. There are diffuse degenerative changes of the visualized thoracic spine. Normal visualized ribs, clavicles, and shoulders. There is no demonstrated abnormality of the visualized soft tissue structures of the upper abdomen. RAD/Chest 1 View (Portable) IMPRESSION: No acute abnormality is seen. Electronically Signed: Marcos Maharaj MD at 15:01 EDT ,
[2021-06-01] MEDS: Albuterol 2.5 MG/3 ML VIAL.NEB. INHALATION (14:50)
--- NOTE | 2021-06-01 14:52 | ED.VIS.DYS ---
HPI History of Present Illness Chief Complaint: Shortness of Breath Informant: patient Onset/Context/Timing Onset: Weeks (1) Context: gradual Timing: Continuous Quality: Positive for Dyspnea on exertion Worsened by: Exertion Relieved by: Oxygen Associated Symptoms cough and green sputum; Negative for rhinorrhea, ear pain, fever, sore throat, chills or sweats Chest Pain: Positive for None Narrative Narrative: Patient presents with shortness of breath that has been getting worse over the past week. Patient was seen here recently and was started on home oxygen after his emergency department visit. Patient was also given prescriptions for prednisone and Tessalon Perles. Patient states that his breathing is getting worse. Patient states it is worse with any exertion. Patient states he is coughing up some green sputum. Patient denies any fevers or chills. Patient denies any sore throat or rhinorrhea. Patient denies any chest pain. [facility] Medical History (Updated 06/01/21 @ 18:[address] 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 Atherosclerosis of coronary artery of [place] heart Carpal tunnel syndrome, bilateral Chronic respiratory failure CKD (chronic kidney disease) stage 3, GFR 30-59 ml/min Congestive heart failure COPD (chronic obstructive pulmonary disease) COPD exacerbation DM2 (diabetes mellitus, type 2) Essential hypertension History of ventricular fibrillation Hyperlipidemia Ischemic cardiomyopathy NSTEMI (non-ST elevated myocardial infarction) DEMAR (obstructive sleep apnea) Pneumonia, pneumococcal Pulmonary nodules Home Medications albuterol sulfate 2 puff INHALATION Q4H PRN PRN 06/05/16 [History Last Taken 03/16/19] aspirin 81 mg PO DAILY 06/05/16 [History Last Taken 03/16/19] montelukast 10 mg PO QHS 06/05/16 [History Last Taken 03/15/19] rosuvastatin 40 mg PO QHS 06/05/16 [History Last Taken 03/15/19] sodium chloride 2 spry NARES BID PRN PRN 06/05/16 [History Last Taken Unknown] nitroglycerin 400 mcg/spray translingual 1 spray SUBLINGUAL Q3-5M PRN #12 g 12/04/18 [Rx Last Taken 03/16/19] liraglutide 0.6 mg/0.1 mL (18 mg/3 mL) subcutaneous pen injector 1.2 mg SC DAILY 12/24/18 [History Last Taken 03/16/19] albuterol sulfate 2.5 mg INHALATION Q6H PRN PRN 03/16/19 [History Last Taken 03/16/19] carvedilol 6.25 mg PO BID 03/16/19 [History Last Taken 03/16/19] clopidogrel 75 mg PO DAILY 03/16/19 [History Last Taken 03/16/19] furosemide 20 mg PO 03/16/19 [History Last Taken 03/16/19] ipratropium bromide 2 spray NASAL BID PRN PRN 03/16/19 [History Last Taken Unknown] losartan 25 mg PO DAILY 03/16/19 [History Last Taken 03/16/19] ibuprofen 400 mg PO TID PRN PRN #20 tab 03/18/19 [Rx Last Taken Unknown] magnesium oxide 420 mg tablet 420 mg PO BID tab 04/20/19 [History Last Taken Unknown] spacer #1 ea 06/04/19 [Rx Last Taken Unknown] pantoprazole 40 mg tablet,delayed release 40 mg PO DAILY #60 tab 06/08/19 [Rx Last Taken Unknown] cholecalciferol (vitamin D3) 25 mcg (1,000 unit) tablet 2,000 unit PO DAILY tab 06/10/19 [History Last Taken Unknown] insulin glargine 100 unit/mL (3 mL) subcutaneous pen 10 unit SUBCUT DAILY ml 06/10/19 [History Last Taken Unknown] tiotropium bromide 2.5 mcg/actuation mist for inhalation 2 puff INHALATION BID g 06/10/19 [History Last Taken Unknown] meclizine 25 mg tablet 25 mg PO TID PRN #60 tab 08/04/19 [Rx Last Taken Unknown] benzonatate 100 mg capsule 100 mg PO BID-TID PRN #15 cap 05/22/21 [Rx Last Taken Unknown] amiodarone 200 mg PO DAILY 05/27/21 [History Last Taken Unknown] apixaban 5 mg PO BID 05/27/21 [History Last Taken Unknown] atorvastatin 05/27/21 [History Last Taken Unknown] cyanocobalamin (vitamin B-12) 1,000 mcg PO DAILY 05/27/21 [History Last Taken Unknown] doxycycline hyclate 100 mg PO Q12H 5 Days #10 tab 05/27/21 [Rx Last Taken Unknown] ezetimibe mg 05/27/21 [History Last Taken Unknown] fluticasone propionate INTRANASAL 05/27/21 [History Last Taken Unknown] metformin 500 mg PO BID 05/27/21 [History Last Taken Unknown] prednisone 50 mg PO DAILY 5 Days #25 tab 05/27/21 [Rx Last Taken Unknown] prednisone 10 mg PO DAILY #63 tab 06/01/21 [Rx Last Taken Unknown] Allergy/AdvReac Type Severity Reaction Status Date / Time No Known Allergies Allergy Verified 06/01/21 13:12 Family History Mother Myocardial infarction Diabetes COPD (chronic obstructive pulmonary disease) Father Myocardial infarction Sister Breast cancer Colon cancer Sister Breast cancer Sister Cancer lung cancer Sister Cancer skin cancer Brother Myocardial infarction Bleeding disorder clot in heart Brother Diabetes Surgical History History of left heart catheterization (03/18/19) Hx of cholecystectomy Presence of implantable cardioverter-defibrillator (ICD) (~2015) S/P CABG x 3 (1996) Stented coronary artery (12/30/18) Social History Smoking Status: Former smoker quit date: 02/18/08 pack-years: 90 Tobacco: How many years used: 45 how long ago did patient quit smokin years ago alcohol intake: former year quit: 1983 substance use type: does not use caffeine: Yes Type: coffee Number of servings: 2 ROS ROS ED Constitutional Constitutional ED: Denies chills or fever(s) Eyes Eyes: Denies blurry vision or change in vision ENT ENT ED: Denies rhinorrhea or sore throat Cardiovascular Cardiovascular: Denies chest pain or palpitations Respiratory/Chest Respiratory/Chest: Reports cough and dyspnea Gastrointestinal Gastrointestinal: Denies nausea or vomiting Genitourinary Genitourinary ED: Denies dysuria or hematuria Musculoskeletal Musculoskeletal: Reports back pain; Denies neck pain Integumentary Denies abscess or rash Neurologic Neurologic: Denies headache(s) or weakness Allergic/Immunologic Allergic/Immunologic ED: Denies mouth swelling or urticaria EXAM Physical Exam Const Vital Signs: 06/01/21 13:12 06/01/21 14:04 06/01/21 14:39 Temperature 97.5 F L Temperature Source Temporal Pulse Rate 65 87 Respiratory Rate 16 20 H Respiratory Effort Labored Respiratory Depth Normal Respiratory Pattern Normal Blood Pressure 143/77 H Blood Pressure Mean 99 Pulse Ox 94 92 Oxygen Delivery Method Nasal Cannula Room Air Nasal Cannula Oxygen Flow Rate (L/min) 2 2 3 06/01/21 14:56 06/01/21 17:12 Temperature Temperature Source Pulse Rate 55 L Respiratory Rate 20 H Respiratory Effort Respiratory Depth Respiratory Pattern Blood Pressure Blood Pressure Mean Pulse Ox 93 96 Oxygen Delivery Method Nasal Cannula Nasal Cannula Oxygen Flow Rate (L/min) 3 3 Positive well nourished and well developed General Appearance ED: well developed HEENT Reports moist mucous membranes Neck supple and no JVD Resp normal respiratory effort Auscultation: wheezes throughout Cardio regular rate, regular rhythm and no murmurs GI normal to inspection, nondistended, normoactive bowel sounds, non-tender and non-distended Auscultation: normoactive bowel sounds Palpation: soft Extremity normal to inspection General Extremety ED: Negative for edema or tenderness General Extremity: Negative for edema Neuro oriented x3, CN's II-XII intact bilaterally and no sensory deficits noted Sensorium / Orientation: alert Motor Exam: strength 5/5 throughout Psych mental status grossly normal Skin no rashes or lesions noted MDM MDM MDM Narrative Medical decision making narrative: Patient was given a DuoNeb aerosol here. EKG was obtained. On my interpretation, it showed a normal sinus rhythm with a rate of 61. IN interval, QRS interval, and QTc intervals were all normal. [place] was normal. There are no acute ST or T wave changes. CBC shows a mild leukocytosis of 15.0. Comprehensive metabolic profile showed a slightly elevated glucose of 329. There is mild hypokalemia at 133. BUN was 48 and creatinine is 1.6. These are consistent with prior results. Portable 1 view chest x-ray was obtained. On my interpretation, lung padilla are clear. There is normal cardiac silhouette. Bony thorax is normal. There is no acute process noted. Radiologist also interpreted the x-ray and agrees. Patient still had some wheezing on reevaluation. Patient was given a repeat dose of albuterol. Patient felt better after this. Patient was able to ambulate in the room while on oxygen and maintain good pulse oximeter reading. Patient was given a prescription for a tapering course of prednisone since he had just finished a burst of prednisone. Patient was instructed to continue his albuterol aerosols at home as needed. Patient was instructed to wear his oxygen at all times. Patient understood and was agreeable with the plan. All questions were answered. Lab Data Attestation: I reviewed the patient's lab results. Labs: Laboratory Results - last 24 hr 06/01/21 06/01/21 14:00 14:00 WBC 15.0 H RBC 4.58 L Hgb 13.9 Hct 41.1 MCV 89.7 MCH 30.3 MCHC 33.8 RDW Std Deviation 42.2 RDW Coeff of Momo 12.8 Plt Count 265 MPV 8.8 Immature Gran % (Auto) 2.700 H Neut % (Auto) 81.3 H Lymph % (Auto) 6.1 L [place] % (Auto) 9.2 Eos % (Auto) 0.3 Baso % (Auto) 0.4 Absolute Neuts (auto) 12.2 H Absolute Lymphs (auto) 0.92 Nucleated RBC % 0 Sodium 133 L Potassium 4.9 Chloride 98 Carbon Dioxide 29.0 Anion Gap 6 BUN 48 H Creatinine 1.60 H Estim Creat Clear Calc 38.00 Est GFR (MDRD) Af Amer 54 L Est GFR (MDRD) Non-Af 45 L BUN/Creatinine Ratio 30.0 H Glucose 329 H Calcium 9.4 Total Bilirubin 0.80 AST 16 ALT 43 Alkaline Phosphatase 89 Troponin I High Sens 25 Total Protein 6.8 Albumin 3.2 Globulin 3.6 Albumin/Globulin Ratio 0.9 Radiography Chest X-Ray - ED: 1 View, Read by ED Physician, Read by Radiologist and No Acute Disease Diagnostic Testing: Clinical Impression(s) from Imaging Studies Chest X-Ray 06/01/21 14:39 IMPRESSION: No acute abnormality is seen. Electronically Signed: Marcos Maharaj MD at 15:01 EDT , EKG Initial EKG: Interpretation: Sinus Rhythm (61), No Acute Injury Pattern and Non-Specific ST Changes Prior EKG tracings: available for review Prior: Unchanged (05/27/2021) Discharge Plan Triage Chief Complaint: Shortness of Breath Other Complaint: Cough ED Provider: Magno Velez Dx/Rx/DC Orders Clinical Impression: Acute exacerbation of chronic obstructive pulmonary disease, Dyspnea Instructions: ED COPD Flare Prescriptions: New prednisone 10 MG tablet 10 mg PO DAILY Qty: 63 RF: 0 No Action Victoza 2-[place]ld[place] 0.6 mg/0.1 mL (18 mg/3 mL) pen injector 1.2 mg SC DAILY RF: 0 nitroglycerin 400 mcg/spray spray,non-aerosol 1 spray SUBLINGUAL Q3-5M PRN (Reason: chest pain) Qty: 12 RF: 3 magnesium oxide 420 mg tablet 420 mg PO BID RF: 0 (DME) spacer See Rx Instructions .ROUTE .MEDSUPPLY Qty: 1 RF: 0 pantoprazole 40 mg tablet,delayed release (DR/EC) 40 mg PO DAILY Qty: 60 RF: 2 meclizine 25 mg tablet 25 mg PO TID PRN (Reason: dizziness) Qty: 60 RF: 0 benzonatate 100 mg capsule 100 mg PO BID-TID PRN (Reason: cough) Qty: 15 RF: 0 aspirin 81 MG tablet,delayed release (DR/EC) 81 mg PO DAILY RF: 0 montelukast 10 MG tablet 10 mg PO QHS RF: 0 albuterol sulfate 1 INHALER inhaler 2 puff inhalation Q4H PRN PRN (Reason: Shortness Of Breath) RF: 0 sodium chloride 1 SPRAY aerosol,spray 2 spry NARES BID PRN PRN (Reason: Nasal Dryness) RF: 0 rosuvastatin 40 MG tablet 40 mg PO QHS RF: 0 cholecalciferol (vitamin D3) 25 mcg (1,000 unit) tablet 2,000 unit PO DAILY RF: 0 insulin glargine 100 unit/mL (3 mL) insulin pen 10 unit subcut DAILY RF: 0 albuterol sulfate 2.5 MG/3 ML solution for nebulization 2.5 mg inhalation Q6H PRN PRN (Reason: Sob &/Or Wheezing) RF: 0 clopidogrel 75 MG tablet 75 mg PO DAILY RF: 0 ipratropium bromide 1 SPRAY spray,non-aerosol 2 spray NASAL BID PRN PRN (Reason: runny nose) RF: 0 furosemide 40 MG tablet 20 mg PO RF: 0 carvedilol 6.25 MG tablet 6.25 mg PO BID RF: 0 losartan 25 MG tablet 25 mg PO DAILY RF: 0 ibuprofen 400 MG tablet 400 mg PO TID PRN PRN (Reason: Pain Score 1-10/10) Qty: 20 RF: 0 tiotropium bromide 2.5 mcg/actuation mist 2 puff inhalation BID RF: 0 amiodarone 200 mg Tablet 200 mg PO DAILY RF: 0 apixaban 5 mg Tablet 5 mg PO BID RF: 0 metformin 500 mg tablet 500 mg PO BID RF: 0 cyanocobalamin (vitamin B-12) 1,000 mcg Tablet Extended Release 1,000 mcg PO DAILY RF: 0 atorvastatin 20 mg tablet RF: 0 fluticasone propionate 50 mcg/actuation spray,suspension INTRANASAL RF: 0 ezetimibe 10 mg tablet RF: 0 prednisone 10 mg tablet 50 mg PO DAILY 5 Days Qty: 25 RF: 0 doxycycline hyclate 100 mg tablet 100 mg PO Q12H 5 Days Qty: 10 RF: 0 [facility] [place] [facility] [Primary Care Provider] - 3-5 Days Disposition Disposition: Home, Self Care
[2021-06-01 15:06] LABS: ALB/GLOB Ratio 0.9 RATIO (0.9-2.4); AST(SGOT) 16 U/L (15-37); Alanine Aminotransfer ALT/SGPT 43 U/L (16-61); Albumin, Serum 3.2 g/dL (3.2-5.0); Alkaline Phosphatase 89 U/L (45-117); Anion Gap 6 (5-15); BUN 48 mg/dL (7-18); Calcium,Total 9.4 mg/dL (8.5-10.1); Chloride 98 mmol/L (98-107); EST Glomerular Filtration Rate 45 mL/min (>60); Est Glom Filt Rate - Afr Amer 54 mL/min (>60); Globulin 3.6 g/dL (2.2-4.2); Glucose 329 mg/dL (74-106); Potassium 4.9 mmol/L (3.5-5.1); Protein, Total 6.8 g/dL (6.4-8.2); Sodium Level 133 mmol/L (136-145); Troponin-I HS 25 pg/mL (3.0-78.0)
[2021-06-01] MEDS: predniSONE 20 MG Tablet 60 MG PO (18:39)
== END 2021-06-01 18:45 | disposition home or self-care (01) ==
PROVIDERS: Emergency Provider Emergency Medicine; Visit Provider Emergency Medicine
DX: J44.1 Chronic obstructive pulmonary disease with (acute) exacerbation (principal); I13.0 Hypertensive heart and chronic kidney disease with heart failure and stage 1 through stage 4 chronic kidney disease, or unspecified chronic kidney disease; I50.9 Heart failure, unspecified; E11.65 Type 2 diabetes mellitus with hyperglycemia; E11.22 Type 2 diabetes mellitus with diabetic chronic kidney disease; N18.30 Chronic kidney disease, stage 3 unspecified; I25.10 Atherosclerotic heart disease of native coronary artery without angina pectoris; I25.5 Ischemic cardiomyopathy; E78.5 Hyperlipidemia, unspecified; E87.6 Hypokalemia; Z87.891 Personal history of nicotine dependence; Z99.81 Dependence on supplemental oxygen; I25.2 Old myocardial infarction; G47.33 Obstructive sleep apnea (adult) (pediatric); Z79.82 Long term (current) use of aspirin; Z79.899 Other long term (current) drug therapy; Z79.02 Long term (current) use of antithrombotics/antiplatelets; Z79.01 Long term (current) use of anticoagulants
CPT/HCPCS: 71045; 80053; 84484; 85025; 87070; 87077; 87186; 87205; 87428; 93005; 94640; 99284; A4216

== ENCOUNTER 2021-06-11 20:30 | Inpatient (IN) | payer OTHER, SELFPAY ==
[2021-06-11 20:32] VITALS: BP 155/73; PULSE 63; RESP 15; TEMP 36.2; O2SAT 95; BMI 32.6
[2021-06-11 20:34] VITALS: BP 155/73; PULSE 63; RESP 15; TEMP 36.2; O2SAT 95
--- NOTE | 2021-06-11 21:12 | EDS_ITS ---
HPI HPI - URI History of Present Illness Chief Complaint: Cough Informant: patient Onset/Context/Timing Onset: Weeks Context: Gradual Onset Timing: Continuous Current Severity: Mild Maximum Severity: Mild Associated Symptoms Associated Symptoms: Positive for Productive Cough Narrative Narrative: 75-year-old male who is cared [facility]. Extensive past medical history of CAD, COPD on 2 L of oxygen at home, CKD, SD, defibrillator. Has been seen here [facility] on the and the 15th of this month. Was initially placed on doxycycline and prednisone. He is done with the doxycycline he still doing his taper of the prednisone. States he still having a cough at times it is clear other times with green sputum. Denies any fever or significant shortness of breath. States his blood sugars have been elevated due to being on the steroid. He denies any fever. Prior similar symptoms: Yes Recent Illness/Hospitalization: No ROS ROS ED ROS Narrative Cough. Review of Systems ROS Unobtainable: Denies due to encephalopathy Constitutional Constitutional ED: Denies fever(s) Eyes Eyes: Denies change in vision ENT ENT ED: Denies ear pain Cardiovascular Cardiovascular: Denies chest pain or palpitations Respiratory/Chest Respiratory/Chest: Reports cough, dyspnea and sputum Gastrointestinal Gastrointestinal: Denies abdominal pain, diarrhea, nausea or vomiting Genitourinary Genitourinary ED: Denies dysuria Musculoskeletal Musculoskeletal: Denies myalgias Integumentary Denies rash Neurologic Neurologic: Denies headache(s) Psychiatric Psychiatric: Denies depression Endocrine Endocrinology: Denies polyuria Hematologic/Lymphatic Hematologic/Lymphatic: Denies easy bruising Allergic/Immunologic Allergic/Immunologic ED: Denies urticaria PFSH PFSH Medical History (Updated 06/11/21 @ 23:[address] 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 Atherosclerosis of coronary artery of [place] heart Carpal tunnel syndrome, bilateral Chronic respiratory failure CKD (chronic kidney disease) stage 3, GFR 30-59 ml/min Congestive heart failure COPD (chronic obstructive pulmonary disease) COPD exacerbation DM2 (diabetes mellitus, type 2) Essential hypertension History of ventricular fibrillation Hyperlipidemia Ischemic cardiomyopathy NSTEMI (non-ST elevated myocardial infarction) DEMAR (obstructive sleep apnea) Pneumonia, pneumococcal Pulmonary nodules Home Medications albuterol sulfate 2 puff INHALATION Q4H PRN PRN 06/05/16 [History Last Taken 03/16/19] aspirin 81 mg PO DAILY 06/05/16 [History Last Taken 03/16/19] montelukast 10 mg PO QHS 06/05/16 [History Last Taken 03/15/19] rosuvastatin 40 mg PO QHS 06/05/16 [History Last Taken 03/15/19] sodium chloride 2 spry NARES BID PRN PRN 06/05/16 [History Last Taken Unknown] nitroglycerin 400 mcg/spray translingual 1 spray SUBLINGUAL Q3-5M PRN #12 g 12/04/18 [Rx Last Taken 03/16/19] liraglutide 0.6 mg/0.1 mL (18 mg/3 mL) subcutaneous pen injector 1.2 mg SC DAILY 12/24/18 [History Last Taken 03/16/19] albuterol sulfate 2.5 mg INHALATION Q6H PRN PRN 03/16/19 [History Last Taken 03/16/19] carvedilol 6.25 mg PO BID 03/16/19 [History Last Taken 03/16/19] clopidogrel 75 mg PO DAILY 03/16/19 [History Last Taken 03/16/19] furosemide 20 mg PO 03/16/19 [History Last Taken 03/16/19] ipratropium bromide 2 spray NASAL BID PRN PRN 03/16/19 [History Last Taken Unknown] losartan 25 mg PO DAILY 03/16/19 [History Last Taken 03/16/19] ibuprofen 400 mg PO TID PRN PRN #20 tab 03/18/19 [Rx Last Taken Unknown] magnesium oxide 420 mg tablet 420 mg PO BID tab 04/20/19 [History Last Taken Unknown] spacer #1 ea 06/04/19 [Rx Last Taken Unknown] pantoprazole 40 mg tablet,delayed release 40 mg PO DAILY #60 tab 06/08/19 [Rx Last Taken Unknown] cholecalciferol (vitamin D3) 25 mcg (1,000 unit) tablet 2,000 unit PO DAILY tab 06/10/19 [History Last Taken Unknown] insulin glargine 100 unit/mL (3 mL) subcutaneous pen 10 unit SUBCUT DAILY ml 06/10/19 [History Last Taken Unknown] tiotropium bromide 2.5 mcg/actuation mist for inhalation 2 puff INHALATION BID g 06/10/19 [History Last Taken Unknown] meclizine 25 mg tablet 25 mg PO TID PRN #60 tab 08/04/19 [Rx Last Taken Unknown] benzonatate 100 mg capsule 100 mg PO BID-TID PRN #15 cap 05/22/21 [Rx Last Taken Unknown] amiodarone 200 mg PO DAILY 05/27/21 [History Last Taken Unknown] apixaban 5 mg PO BID 05/27/21 [History Last Taken Unknown] atorvastatin 05/27/21 [History Last Taken Unknown] cyanocobalamin (vitamin B-12) 1,000 mcg PO DAILY 05/27/21 [History Last Taken Unknown] doxycycline hyclate 100 mg PO Q12H 5 Days #10 tab 05/27/21 [Rx Last Taken Unknown] ezetimibe mg 05/27/21 [History Last Taken Unknown] fluticasone propionate INTRANASAL 05/27/21 [History Last Taken Unknown] metformin 500 mg PO BID 05/27/21 [History Last Taken Unknown] prednisone 50 mg PO DAILY 5 Days #25 tab 05/27/21 [Rx Last Taken Unknown] prednisone 10 mg PO DAILY #63 tab 06/01/21 [Rx Last Taken Unknown] Allergy/AdvReac Type Severity Reaction Status Date / Time No Known Allergies Allergy Verified 06/11/21 20:34 Family History Mother Myocardial infarction Diabetes COPD (chronic obstructive pulmonary disease) Father Myocardial infarction Sister Breast cancer Colon cancer Sister Breast cancer Sister Cancer lung cancer Sister Cancer skin cancer Brother Myocardial infarction Bleeding disorder clot in heart Brother Diabetes Surgical History History of left heart catheterization (03/18/19) Hx of cholecystectomy Presence of implantable cardioverter-defibrillator (ICD) (~2015) S/P CABG x 3 (1996) Stented coronary artery (12/30/18) Social History Smoking Status: Former smoker quit date: 02/18/08 pack-years: 90 Tobacco: How many years used: 45 how long ago did patient quit smokin years ago alcohol intake: former year quit: 1983 substance use type: does not use caffeine: Yes Type: coffee Number of servings: 2 EXAM Physical Exam Narrative Exam Narrative: 75-year-old male no acute distress vital signs stable afebrile. On his 2 L oxygen is 95% no hypoxia. H EENT exam unremarkable. Moist with memories. Neck nontender no JVD. Lungs coarse breath sounds bilaterally. Few scattered wheezes. No rales or rhonchi. Equal symmetrical. Heart regular rhythm rate about 65 no murmur. Chest wall nontender. Abdomen soft nontender. Moving all 4 extremities. Calves are nontender without edema or cords. Neurologically is awake and alert. Const Vital Signs: 06/11/21 20:32 06/11/21 20:34 06/11/21 21:32 Temperature 97.2 F L 97.2 F L Temperature Source Temporal Temporal Pulse Rate 63 63 Respiratory Rate 15 15 Respiratory Effort Short of Breath Blood Pressure 155/73 H 155/73 H Blood Pressure Mean 100 100 Pulse Ox 95 95 Oxygen Delivery Method Nasal Cannula Nasal Cannula Oxygen Flow Rate (L/min) 06/11/21 23:10 Temperature 98 F Temperature Source Oral Pulse Rate 61 Respiratory Rate 18 Respiratory Effort Blood Pressure 118/59 L Blood Pressure Mean 78 Pulse Ox 95 Oxygen Delivery Method Nasal Cannula Oxygen Flow Rate (L/min) 3 Positive well nourished and well developed; Negative for obese, cachectic or contractures General Appearance ED: well developed and NAD; Negative for cachectic, contractures, cyanotic, diaphoretic or pallor Nutritional Appearance: Negative for cachectic or obese HEENT Reports moist mucous membranes normocephalic and atraumatic Eyes PERRL and EOMs intact bilaterally General Eye ED: Negative for pale conjunctiva or scleral icterus Neck no lymphadenopathy, supple, no meningeal signs and no JVD General: Negative for anterior neck swelling or lymphadenopathy Resp normal respiratory effort and No clear to auscultation bilaterally Resp Narrative: Few scattered. Coarse breath sounds. No distress. Auscultation: wheezes; Negative for rales or rhonchi Cardio S1 normal heart sound, S2 normal heart sound and no murmurs Rate: regular rate Rhythm: regular rhythm GI non-tender, non-distended and no masses Inspection: Negative for abdominal distention Auscultation: normoactive bowel sounds; Negative for hyperactive bowel sounds Palpation: soft; Negative for tender or guarding Back/Spine no CVA tenderness and normal ROM General Back: Negative for CVA tenderness Cervical Spine: Negative for cervical spine tenderness Thoracic Spine / Upper Back: Negative for thoracic spinal tenderness Extremity normal to inspection and full ROM General Extremety ED: Negative for cyanosis or tenderness General Extremity: Negative for cyanosis Neuro oriented x3 Sensorium / Orientation: alert, oriented to person, oriented to place and oriented to time Motor Exam: strength 5/5 throughout Psych mental status grossly normal Attitude: No agitated Mood & Affect: Negative for depressed or tearful Skin General Skin Exam: Negative for jaundice or pallor Lesions: no lesions Rashes: no rashes MDM MDM MDM Narrative Medical decision making narrative: 75-year-old male on oxygen being treated for COPD flare. Blood sugars are running around 380. He is on both insulin and metformin. I explained to him his blood sugars would run high until he is done with the steroids. He has had 2 negative chest x-rays 02 26- and ultimately needs 1 repeated tonight. He will continue his steroids and follow- up with his primary care provider. We will check a blood sugar prior to discharge. Patient doing well on repeat exam. Spoke to he and the hospitalist. Start the patient on insulin drip. He is not in DKA. Distal give us the best way to slowly control and decrease his blood sugars. Due to being on insulin drip drip and frequent blood sugar checks he will be placed in the ICU. Clinically he is very stable. Lab Data Attestation: I reviewed the patient's lab results. Lab results narrative: BGT equals greater than 500. BMP Shows a Sodium 128. Of 8. Potassium of 5.1. BUN of 70 creatinine of 2.2 glucose of 736. Acetone negative. CBC shows a white count of 15.3. H&H of 13 and 39. Labs: Laboratory Results - last 24 hr 06/11/21 06/11/21 06/11/21 21:27 21:47 21:47 WBC 15.3 H RBC 4.35 L Hgb 13.2 Hct 39.1 L MCV 89.9 MCH 30.3 MCHC 33.8 RDW Std Deviation 41.6 RDW Coeff of Momo 12.5 Plt Count 253 MPV 9.8 Immature Gran % (Auto) 1.700 H Neut % (Auto) 88.7 H Lymph % (Auto) 3.8 L [place] % (Auto) 5.7 Eos % (Auto) 0.0 Baso % (Auto) 0.1 Absolute Neuts (auto) 13.6 H Absolute Lymphs (auto) 0.59 L Nucleated RBC % 0 Differential Comment SCANNED Diff Path Review May foll Sodium 128 L Potassium 5.1 Chloride 88 L Carbon Dioxide 32.0 Anion Gap 8 BUN 70 H Creatinine 2.20 H Estim Creat Clear Calc 27.64 Est GFR (MDRD) Af Amer 38 L Est GFR (MDRD) Non-Af 31 L BUN/Creatinine Ratio 31.8 H Glucose 736 H* Calcium 9.6 Acetone Level POC Glucose > 500 H* 06/11/21 21:47 WBC RBC Hgb Hct MCV MCH MCHC RDW Std Deviation RDW Coeff of Momo Plt Count MPV Immature Gran % (Auto) Neut % (Auto) Lymph % (Auto) [place] % (Auto) Eos % (Auto) Baso % (Auto) Absolute Neuts (auto) Absolute Lymphs (auto) Nucleated RBC % Differential Comment Diff Path Review Sodium Potassium Chloride Carbon Dioxide Anion Gap BUN Creatinine Estim Creat Clear Calc Est GFR (MDRD) Af Amer Est GFR (MDRD) Non-Af BUN/Creatinine Ratio Glucose Calcium Acetone Level NEGATIVE POC Glucose Radiography Diagnostic Testing: Clinical Impression(s) from Imaging Studies Chest X-Ray 06/11/21 21:50 IMPRESSION: New left basal patchy opacities, may represent compressive atelectasis or infectious changes. Electronically Signed: Venancio Irwin MD at 22:22 EDT , Chest x-ray portable, single view, interpreted by myself and radiologist shows no acute abnormality. Radiologist discusses patchy opacities which clinically when I interpret the x-ray I do not think these are a pneumonia. Discharge Plan Triage Chief Complaint: Cough ED Provider: Brandon Sung Dx/Rx/DC Orders Clinical Impression: COPD (chronic obstructive pulmonary disease), URI (upper respiratory infection), History of coronary artery disease, Hyperglycemia due to diabetes mellitus, Acute kidney injury, Acute dehydration, Hyperosmolar hyperglycemic state (HHS) Instructions: ED COPD Flare Prescriptions: No Action Victoza 2-Sheldon 0.6 mg/0.1 mL (18 mg/3 mL) pen injector 1.2 mg SC DAILY RF: 0 nitroglycerin 400 mcg/spray spray,non-aerosol 1 spray SUBLINGUAL Q3-5M PRN (Reason: chest pain) Qty: 12 RF: 3 magnesium oxide 420 mg tablet 420 mg PO BID RF: 0 (DME) spacer See Rx Instructions .ROUTE .MEDSUPPLY Qty: 1 RF: 0 pantoprazole 40 mg tablet,delayed release (DR/EC) 40 mg PO DAILY Qty: 60 RF: 2 meclizine 25 mg tablet 25 mg PO TID PRN (Reason: dizziness) Qty: 60 RF: 0 benzonatate 100 mg capsule 100 mg PO BID-TID PRN (Reason: cough) Qty: 15 RF: 0 aspirin 81 MG tablet,delayed release (DR/EC) 81 mg PO DAILY RF: 0 montelukast 10 MG tablet 10 mg PO QHS RF: 0 albuterol sulfate 1 INHALER inhaler 2 puff inhalation Q4H PRN PRN (Reason: Shortness Of Breath) RF: 0 sodium chloride 1 SPRAY aerosol,spray 2 spry NARES BID PRN PRN (Reason: Nasal Dryness) RF: 0 rosuvastatin 40 MG tablet 40 mg PO QHS RF: 0 cholecalciferol (vitamin D3) 25 mcg (1,000 unit) tablet 2,000 unit PO DAILY RF: 0 insulin glargine 100 unit/mL (3 mL) insulin pen 10 unit subcut DAILY RF: 0 albuterol sulfate 2.5 MG/3 ML solution for nebulization 2.5 mg inhalation Q6H PRN PRN (Reason: Sob &/Or Wheezing) RF: 0 clopidogrel 75 MG tablet 75 mg PO DAILY RF: 0 ipratropium bromide 1 SPRAY spray,non-aerosol 2 spray NASAL BID PRN PRN (Reason: runny nose) RF: 0 furosemide 40 MG tablet 20 mg PO RF: 0 carvedilol 6.25 MG tablet 6.25 mg PO BID RF: 0 losartan 25 MG tablet 25 mg PO DAILY RF: 0 ibuprofen 400 MG tablet 400 mg PO TID PRN PRN (Reason: Pain Score 1-10/10) Qty: 20 RF: 0 tiotropium bromide 2.5 mcg/actuation mist 2 puff inhalation BID RF: 0 amiodarone 200 mg Tablet 200 mg PO DAILY RF: 0 apixaban 5 mg Tablet 5 mg PO BID RF: 0 metformin 500 mg tablet 500 mg PO BID RF: 0 cyanocobalamin (vitamin B-12) 1,000 mcg Tablet Extended Release 1,000 mcg PO DAILY RF: 0 atorvastatin 20 mg tablet RF: 0 fluticasone propionate 50 mcg/actuation spray,suspension INTRANASAL RF: 0 ezetimibe 10 mg tablet RF: 0 prednisone 10 mg tablet 50 mg PO DAILY 5 Days Qty: 25 RF: 0 doxycycline hyclate 100 mg tablet 100 mg PO Q12H 5 Days Qty: 10 RF: 0 prednisone 10 MG tablet 10 mg PO DAILY Qty: 63 RF: 0 [facility] Referrals: [facility] [Primary Care Provider] - As soon as possible Activity Restrictions/Additional Instructions: Continue your steroids and finish them as prescribed. As long as you are on the steroids and even for several days after your blood sugars will be running higher. Plenty of water and rest Follow-up with your primary care physician the [facility] over the next week. Disposition Disposition: Home, Self Care
[2021-06-11 21:36] LABS: Bedside Glucose > 500 mg/dL (74-106)
--- NOTE | 2021-06-11 21:50 | RAD_ITS ---
INDICATION: cough EXAMINATION/TECHNIQUE: X-RAY - XR Chest 1 View COMPARISON: 06/01/2021 FINDINGS: LINES/DEVICES: Left chest AICD remains in similar position. LUNGS: New left basal patchy opacities. No edema or effusion. No pneumothorax. MEDIASTINUM AND CARDIOVASCULAR STRUCTURES: Postsurgical changes in the mediastinum and atherosclerotic changes, similar compared to the prior. BONES AND SOFT TISSUES: Unremarkable. RAD/Chest 1 View (Portable) IMPRESSION: New left basal patchy opacities, may represent compressive atelectasis or infectious changes. Electronically Signed: Venancio Irwin MD at 22:22 EDT ,
[2021-06-11] MEDS: 0.9% Normal Saline 1,000 ML 999 ML IV (22:01)
[2021-06-11 22:32] LABS: Anion Gap 8 (5-15); BUN 70 mg/dL (7-18); BUN/Creat Ratio 31.8 RATIO (10-20); Calcium,Total 9.6 mg/dL (8.5-10.1); Chloride 88 mmol/L (98-107); EST Glomerular Filtration Rate 31 mL/min (>60); Est Glom Filt Rate - Afr Amer 38 mL/min (>60); Estimated Creatinine Clearance 27.64 ml/min; Glucose 736 mg/dL (74-106); Potassium 5.1 mmol/L (3.5-5.1); Sodium Level 128 mmol/L (136-145)
[2021-06-11 22:41] LABS: Absolute Lymphocyte Count 0.59 X10^3/uL (0.83-4.51); Absolute Neutrophil Count 13.6 X10^3/uL (2.0-7.7); Basophil# 0.02 X10^3/uL; Basophil% 0.1 % (0-1); Hematocrit 39.1 % (40-54); Hemoglobin 13.2 g/dL (13.0-16.5); Lymphocyte # 0.59 X10^3/ul (0.83-4.51); Lymphocyte % 3.8 % (19-41); Mean Corp Hgb Conc 33.8 g/dL (32-36); Mean Corpuscular Hgb 30.3 pg (27.0-32.0); Mean Corpuscular Volume 89.9 fL (80-94); Mean Platelet Vol. 9.8 fl (6.2-12.0); Monocyte# 0.87 X10^3/uL; Monocyte% 5.7 % (0-10); NRBC Flagged by Analyzer 0 % (0-5); Neutrophil # 13.59 X10^3/uL (2.7-7.7); Neutrophil % 88.7 % (47-70); POSITIVE DIFFERENTIAL YES; Platelet Count 253 K/mm3 (150-450); RBC Distribution Width CV 12.5 % (11.6-14.6); RBC Distribution Width SD 41.6 fl (35.1-43.9); Red Blood Count 4.35 M/mm3 (4.6-6.2); White Blood Count 15.3 K/mm3 (4.4-11.0)
[2021-06-11 22:51] LABS: Differential Indicated SCAN CRITERIA MET
[2021-06-11 23:06] LABS: Differential Comment SCANNED; Pathologist Review May foll
[2021-06-11 23:10] VITALS: BP 118/59; PULSE 61; RESP 18; TEMP 36.6; O2SAT 95
--- NOTE | 2021-06-11 23:16 | PCM.HP.STD ---
HPI - General General Date of Admission: 06/11/21 HPI Narrative VIVEK ZACARIAS, is a 75 M with a significant history of COPD ON 4lNC around the clock COPD who presents emergency department on 4 L nasal cannula oxygen; PPM with ICD CAD status post CABG and stents who presents to the emergency department with hyperglycemia. Reportedly he has had a persistent elevated blood glucose in the 300s. He attributes his hyperglycemia to steroids. Of note patient has had cough for the past 2 and half weeks. Patient has completed a course of doxycycline and is on a course of steroids taper. Her significant other was at bedside still that his cough is worsening. His cough is productive with dark green sputum. At the emergency department his blood glucose was in the 700s. He reports increased frequency of urination. He reports polydipsia. He reports polyphagia. He reports that his bowels have been in for 4 days but on the day of presentation his bowels moved. He denies shortness of breath. [facility] Medical History Acute respiratory failure with hypoxia Atherosclerosis of coronary artery bypass graft(s) without angina pectoris Atherosclerosis of coronary artery of [place] heart Carpal tunnel syndrome, bilateral Chronic respiratory failure CKD (chronic kidney disease) stage 3, GFR 30-59 ml/min Congestive heart failure COPD (chronic obstructive pulmonary disease) COPD exacerbation DM2 (diabetes mellitus, type 2) Essential hypertension History of ventricular fibrillation Hyperlipidemia Ischemic cardiomyopathy NSTEMI (non-ST elevated myocardial infarction) DEMAR (obstructive sleep apnea) Pneumonia, pneumococcal Pulmonary nodules Home Medications albuterol sulfate 2 puff INHALATION Q4H PRN PRN 06/05/16 [History Last Taken 03/16/19] aspirin 81 mg PO DAILY 06/05/16 [History Last Taken 03/16/19] montelukast 10 mg PO QHS 06/05/16 [History Last Taken 03/15/19] rosuvastatin 40 mg PO QHS 06/05/16 [History Last Taken 03/15/19] sodium chloride 2 spry NARES BID PRN PRN 06/05/16 [History Last Taken Unknown] nitroglycerin 400 mcg/spray translingual 1 spray SUBLINGUAL Q3-5M PRN #12 g 12/04/18 [Rx Last Taken 03/16/19] liraglutide 0.6 mg/0.1 mL (18 mg/3 mL) subcutaneous pen injector 1.2 mg SC DAILY 12/24/18 [History Last Taken 03/16/19] albuterol sulfate 2.5 mg INHALATION Q6H PRN PRN 03/16/19 [History Last Taken 03/16/19] carvedilol 6.25 mg PO BID 03/16/19 [History Last Taken 03/16/19] clopidogrel 75 mg PO DAILY 03/16/19 [History Last Taken 03/16/19] furosemide 20 mg PO 03/16/19 [History Last Taken 03/16/19] ipratropium bromide 2 spray NASAL BID PRN PRN 03/16/19 [History Last Taken Unknown] losartan 25 mg PO DAILY 03/16/19 [History Last Taken 03/16/19] ibuprofen 400 mg PO TID PRN PRN #20 tab 03/18/19 [Rx Last Taken Unknown] magnesium oxide 420 mg tablet 420 mg PO BID tab 04/20/19 [History Last Taken Unknown] spacer #1 ea 06/04/19 [Rx Last Taken Unknown] pantoprazole 40 mg tablet,delayed release 40 mg PO DAILY #60 tab 06/08/19 [Rx Last Taken Unknown] cholecalciferol (vitamin D3) 25 mcg (1,000 unit) tablet 2,000 unit PO DAILY tab 06/10/19 [History Last Taken Unknown] insulin glargine 100 unit/mL (3 mL) subcutaneous pen 10 unit SUBCUT DAILY ml 06/10/19 [History Last Taken Unknown] tiotropium bromide 2.5 mcg/actuation mist for inhalation 2 puff INHALATION BID g 06/10/19 [History Last Taken Unknown] meclizine 25 mg tablet 25 mg PO TID PRN #60 tab 08/04/19 [Rx Last Taken Unknown] benzonatate 100 mg capsule 100 mg PO BID-TID PRN #15 cap 05/22/21 [Rx Last Taken Unknown] amiodarone 200 mg PO DAILY 05/27/21 [History Last Taken Unknown] apixaban 5 mg PO BID 05/27/21 [History Last Taken Unknown] atorvastatin 05/27/21 [History Last Taken Unknown] cyanocobalamin (vitamin B-12) 1,000 mcg PO DAILY 05/27/21 [History Last Taken Unknown] doxycycline hyclate 100 mg PO Q12H 5 Days #10 tab 05/27/21 [Rx Last Taken Unknown] ezetimibe mg 05/27/21 [History Last Taken Unknown] fluticasone propionate INTRANASAL 05/27/21 [History Last Taken Unknown] metformin 500 mg PO BID 05/27/21 [History Last Taken Unknown] prednisone 50 mg PO DAILY 5 Days #25 tab 05/27/21 [Rx Last Taken Unknown] prednisone 10 mg PO DAILY #63 tab 06/01/21 [Rx Last Taken Unknown] Allergy/AdvReac Type Severity Reaction Status Date / Time No Known Allergies Allergy Verified 06/11/21 20:34 Family History Mother Myocardial infarction Diabetes COPD (chronic obstructive pulmonary disease) Father Myocardial infarction Sister Breast cancer Colon cancer Sister Breast cancer Sister Cancer lung cancer Sister Cancer skin cancer Brother Myocardial infarction Bleeding disorder clot in heart Brother Diabetes Surgical History History of left heart catheterization (03/18/19) Hx of cholecystectomy Presence of implantable cardioverter-defibrillator (ICD) (~2015) S/P CABG x 3 (1996) Stented coronary artery (12/30/18) Social History Smoking Status: Former smoker quit date: 02/18/08 pack-years: 90 Tobacco: How many years used: 45 how long ago did patient quit smokin years ago alcohol intake: former year quit: 1983 substance use type: does not use caffeine: Yes Type: coffee Number of servings: 2 ROS ROS Narrative Pertinent positives and pertinent negatives as noted in HPI. All other systems were reviewed and are negative. Vital Signs Vital Signs Vital Signs: 06/11/21 20:32 06/11/21 20:34 06/11/21 21:32 Temperature 97.2 F L 97.2 F L Temperature Source Temporal Temporal Pulse Rate 63 63 Respiratory Rate 15 15 Respiratory Effort Short of Breath Blood Pressure 155/73 H 155/73 H Blood Pressure Mean 100 100 Pulse Ox 95 95 Oxygen Delivery Method Nasal Cannula Nasal Cannula Oxygen Flow Rate (L/min) 06/11/21 23:10 Temperature 98 F Temperature Source Oral Pulse Rate 61 Respiratory Rate 18 Respiratory Effort Blood Pressure 118/59 L Blood Pressure Mean 78 Pulse Ox 95 Oxygen Delivery Method Nasal Cannula Oxygen Flow Rate (L/min) 3 Weight Weight: 97.522 kg Body Mass Index (BMI) 32.6 Physical Exam Narrative Physical exam: General: Well-nourished, well-developed. Head: Normocephalic, atraumatic, no tenderness Eyes: Vision is grossly intact. EOMI ENT, no trauma, moist mucous membranes, no rhinorrhea Neck: Nontender, full range of motion, no spinal tenderness, deformities, step-off CVS: Regular rate and rhythm. S1-S2 present. No murmur, gallop or rub. Respiratory : clear to auscultation bilaterally, chest wall nontender, no wheezing Abdomen: Soft, nontender, nondistended, normal bowel sounds, no masses : Deferred Back: Nontender, no CVA tenderness, no midline spinal tenderness, deformities, step-offs Extremities: Nontender full range of motion, no trauma Skin: Normal color, no trauma, abrasions Neuro: Alert, oriented, cranial nerves II through XII grossly intact. Psychiatry: Normal mood. Normal affect. Not depressed. Not anxious. Results Lab / Micro Data Result Diagrams: 06/11/21 21:47 06/11/21 21:47 Labs: Laboratory Results - last 24 hr 06/11/21 21:27: POC Glucose > 500 H* 06/11/21 21:47: WBC 15.3 H, RBC 4.35 L, Hgb 13.2, Hct 39.1 L, MCV 89.9, MCH 30.3, MCHC 33.8, RDW Std Deviation 41.6, RDW Coeff of Momo 12.5, Plt Count 253, MPV 9.8, Immature Gran % (Auto) 1.700 H, Neut % (Auto) 88.7 H, Lymph % (Auto) 3.8 L, [place] % (Auto) 5.7, Eos % (Auto) 0.0, Baso % (Auto) 0.1, Absolute Neuts (auto) 13.6 H, Absolute Lymphs (auto) 0.59 L, Nucleated RBC % 0, Differential Comment SCANNED, Diff Path Review June06/11/21 21:47: Sodium 128 L, Potassium 5.1, Chloride 88 L, Carbon Dioxide 32.0, Anion Gap 8, BUN 70 H, Creatinine 2.20 H, Estim Creat Clear Calc 27.64, Est GFR (MDRD) Af Amer 38 L, Est GFR (MDRD) Non-Af 31 L, BUN/Creatinine Ratio 31.8 H, Glucose 736 H*, Calcium 9.6 06/11/21 21:47: Acetone Level NEGATIVE Radiology Impression Chest X-Ray 06/11/21 21:50 IMPRESSION: New left basal patchy opacities, may represent compressive atelectasis or infectious changes. Electronically Signed: Venancio Irwin MD at 22:22 EDT , Assessment & Plan Assessment/Plan (1) Hyperglycemia: (2) COPD (chronic obstructive pulmonary disease): QUALIFIERS: COPD type: COPD with acute exacerbation Qualified Code(s): J44.1 - Chronic obstructive pulmonary disease with (acute) exacerbation PLAN: Acute Hyperglycemic Hyperosmolar state Review of labs showed blood glucose on BMP as 736. Sodium level is 128. Serum osmolality is 322. CO2 is 32 and there are no ketones. White count is 15.3 with bandemia of 1.7% and with neutrophilia and lymphopenia. Elevated white count and bandemia likely secondary to steroid use. Received normal saline bolus in the emergency department. Normal saline 150 MLS per hour ordered and then will will de-escalate to 0.45 normal saline at 100 mL/h. Insulin drip started emergency department and continued. Trend CBC. Serial BMP ordered. Accu-Chek every 1 hour while on insulin drip. N.p.o. except meds with sips. Hold home metformin and other home hypoglycemic regimen. Last A1c on file was on 06/08/2019. A1c at that time was 8.4. Repeat A1c. Acute exacerbation of COPD Completed course of Doxycycline. Will continue steroid taper. Chest x-ray visualized and independently. CXR with no overt signs of consolidation or infiltrate. Per radiologist chest x-ray with new left base patchy opacities, may represent compressive atelectasis or infectious changes. Incentive spirometer ordered. Trend CBC. MERCEDEZ on CKD stage IIIa/dehydration CKD likely secondary to diabetic nephropathy. Creatinine on presentation was 2.20. His creatinine at 10 days ago was 1.60. His BUN is severely elevated at 70. BUN over creatinine is 31.8. IV hydration as above. Hold nephrotoxins. Home losartan held. Trend BMP. Hypertension Blood pressure is not within goal Losartan held secondary to MERCEDEZ. As needed hydralazine ordered. Trend blood pressure and adjust blood pressure medications. DVT prophylaxis Continue home Eliquis. Denies history of thromboembolism; or Afib. Patient thinks eliquis was placed secondary to Heart disease/CAD. Charges/Coding Visit Charges Inpatient E&M: 30028 Init Hosp L3
[2021-06-11 23:25] LABS: Bedside Glucose > 500 mg/dL (74-106)
[2021-06-11 23:29] VITALS: BP 118/59; PULSE 61; RESP 13; TEMP 36.7; O2SAT 95
[2021-06-12] VITALS (23 sets, daily range): BP systolic 98–157; BP diastolic 43–99; PULSE 28–65; RESP 14–23; TEMP 36.4–36.9; O2SAT 95–100; BMI 29.9
[2021-06-12 00:16] LABS: Osmolality, Serum 322 mOsm/KG (280-301)
--- NOTE | 2021-06-12 00:21 | ED.RN ---
Report called to BRIAN Bowling
[2021-06-12] MEDS: 0.9% Normal Saline 1,000 ML 150 ML IV (01:28)
[2021-06-12 01:36] LABS: Bedside Glucose 449 mg/dL (74-106)
[2021-06-12 01:43] LABS: Hemoglobin A1c 9.3 % (3.8-5.6)
[2021-06-12 02:21] LABS: Bedside Glucose 325 mg/dL (74-106)
[2021-06-12] MEDS: 0.45% Normal Saline 1,000 ML 100 ML IV (03:17)
[2021-06-12 03:31] LABS: Bedside Glucose 249 mg/dL (74-106)
[2021-06-12] MEDS: guaiFENesin 1,200 MG Tablet 1200 MG PO ×3 (03:46→21:18)
[2021-06-12] MEDS: Dext 5%-0.45% NS 1,000 ML 150 ML IV (03:46)
[2021-06-12 04:20] LABS: Absolute Lymphocyte Count 1.23 X10^3/uL (0.83-4.51); Absolute Neutrophil Count 12.8 X10^3/uL (2.0-7.7); Basophil# 0.01 X10^3/uL; Basophil% 0.1 % (0-1); Eosinophil# 0.03 X10^3/uL; Eosinophils% 0.2 % (0-5); Hematocrit 35.3 % (40-54); Hemoglobin 12.1 g/dL (13.0-16.5); Lymphocyte # 1.23 X10^3/ul (0.83-4.51); Lymphocyte % 7.9 % (19-41); Mean Corp Hgb Conc 34.3 g/dL (32-36); Mean Corpuscular Hgb 30.5 pg (27.0-32.0); Mean Corpuscular Volume 88.9 fL (80-94); Mean Platelet Vol. 9.1 fl (6.2-12.0); Monocyte# 1.29 X10^3/uL; Monocyte% 8.2 % (0-10); NRBC Flagged by Analyzer 0 % (0-5); Neutrophil # 12.82 X10^3/uL (2.7-7.7); Neutrophil % 81.9 % (47-70); Platelet Count 230 K/mm3 (150-450); RBC Distribution Width CV 12.2 % (11.6-14.6); RBC Distribution Width SD 39.7 fl (35.1-43.9); Red Blood Count 3.97 M/mm3 (4.6-6.2); White Blood Count 15.6 K/mm3 (4.4-11.0)
[2021-06-12 04:30] LABS: Magnesium 1.9 mg/dL (1.6-2.6)
[2021-06-12 04:34] LABS: Anion Gap 5 (5-15); BUN 61 mg/dL (7-18); BUN/Creat Ratio 35.3 RATIO (10-20); Calcium,Total 8.7 mg/dL (8.5-10.1); Chloride 97 mmol/L (98-107); Creatinine, Serum 1.73 mg/dL (0.70-1.30); EST Glomerular Filtration Rate 41 mL/min (>60); Est Glom Filt Rate - Afr Amer 50 mL/min (>60); Estimated Creatinine Clearance 35.14 ml/min; Glucose 266 mg/dL (74-106); Potassium 4.2 mmol/L (3.5-5.1); Sodium Level 135 mmol/L (136-145)
[2021-06-12 05:20] LABS: Bedside Glucose 269 mg/dL (74-106)
[2021-06-12] MEDS: 0.9% Normal Saline 1,000 ML 60 ML IV (06:40)
[2021-06-12] MEDS: Insulin Glargine-YFGN 100 UNIT/ML Pen 10 UNIT SC ×2 (06:41→07:38)
[2021-06-12] MEDS: Insulin Lispro 100 UNIT/ML INSULN.PEN SC ×4 (06:41→21:19)
[2021-06-12 07:00] LABS: Bedside Glucose 250 mg/dL (74-106)
[2021-06-12] MEDS: Benzonatate 100 MG Capsule PO (07:45)
[2021-06-12] MEDS: Cyanocobalamin 500 MCG Tablet 1000 MCG PO (07:46)
[2021-06-12] MEDS: Cholecalciferol (VIT D3) 25 MCG TABLET (1,000 UNITS) 50 MCG PO (07:47)
[2021-06-12] MEDS: Aspirin E.C. 81 MG Tablet PO (07:47)
[2021-06-12] MEDS: Magnesium Chloride 64 MG Delay Rel.Tablet 128 MG PO ×2 (07:47→21:18)
[2021-06-12] MEDS: predniSONE 10 MG Tablet 30 MG PO (07:48)
[2021-06-12] MEDS: APIXABAN 5 MG TABLET PO ×2 (07:48→21:18)
[2021-06-12] MEDS: Amiodarone 200 MG Tablet PO (07:48)
[2021-06-12] MEDS: Carvedilol 6.25 MG Tablet PO ×2 (07:50→21:18)
[2021-06-12] MEDS: Clopidogrel Bisulfate 75 MG Tablet PO (08:06)
--- NOTE | 2021-06-12 09:56 | PN.HOSP_ITS ---
Subjective Subjective Feels well. No events overnight. Objective Data Objective Data Vital Signs: Vital Signs Temp Pulse Resp BP Pulse Ox 36.6 C 46 L 16 135/56 H 98 06/12/21 08:00 06/12/21 08:00 06/12/21 08:00 06/12/21 08:00 06/12/21 08:00 Oxygen Flow Rate (L/min) 2 Oxygen Delivery Method Nasal Cannula Weight: 90.1 kg Body Mass Index (BMI) 29.9 Intake & Output: Intake and Output for Last 24 Hours 06/10/21 06/11/21 06/12/21 23:59 23:59 23:59 Intake Total 1000 / 1000 545.22 / 545.22 Output Total 1375 / 1375 Balance 1000 / 1000 -829.78 / -829.78 Lab / Micro Data Result Diagrams: 06/12/21 04:10 06/12/21 04:10 Labs: Laboratory Results - last 24 hr 06/11/21 21:27: POC Glucose > 500 H* 06/11/21 21:47: WBC 15.3 H, RBC 4.35 L, Hgb 13.2, Hct 39.1 L, MCV 89.9, MCH 30.3, MCHC 33.8, RDW Std Deviation 41.6, RDW Coeff of [place] 12.5, Plt Count 253, MPV 9.8, Immature Gran % (Auto) 1.700 H, Neut % (Auto) 88.7 H, Lymph % (Auto) 3.8 L, [place] % (Auto) 5.7, Eos % (Auto) 0.0, Baso % (Auto) 0.1, Absolute Neuts (auto) 13.6 H, Absolute Lymphs (auto) 0.59 L, Nucleated RBC % 0, Differential Co mment SCANNED, Diff Path Review June06/11/21 21:47: Sodium 128 L, Potassium 5.1, Chloride 88 L, Carbon Dioxide 32.0, Anion Gap 8, BUN 70 H, Creatinine 2.20 H, Estim Creat Clear Calc 27.64, Est GFR (MDRD) Af Amer 38 L, Est GFR (MDRD) Non-Af 31 L, BUN/Creatinine Ratio 31.8 H, Glucose 736 H*, Calcium 9.6 06/11/21 21:47: Acetone Level NEGATIVE 06/11/21 21:47: Hemoglobin A1c 9.3 H 06/11/21 23:19: POC Glucose > 500 H* 06/11/21 23:40: Serum Osmolality 322 H 06/12/21 01:18: POC Glucose 449 H 06/12/21 02:12: POC Glucose 325 H 06/12/21 03:20: POC Glucose 249 H 06/12/21 04:10: Magnesium 1.9 06/12/21 04:10: WBC 15.6 H, RBC 3.97 L, Hgb 12.1 L, Hct 35.3 L, MCV 88.9, MCH 30.5, MCHC 34.3, RDW Std Deviation 39.7, RDW Coeff of Momo 12.2, Plt Count 230, MPV 9.1, Immature Gran % (Auto) 1.700 H, Neut % (Auto) 81.9 H, Lymph % (Auto) 7.9 L, [place] % (Auto) 8.2, Eos % (Auto) 0.2, Baso % (Auto) 0.1, Absolute Neuts (auto) 12.8 H, Absolute Lymphs (auto) 1.23, Nucleated RBC % 0 06/12/21 04:10: Sodium 135 L, Potassium 4.2, Chloride 97 L, Carbon Dioxide 33.0 H, Anion Gap 5, BUN 61 H, Creatinine 1.73 H, Estim Creat Clear Calc 35.14, Est GFR (MDRD) Af Amer 50 L, Est GFR (MDRD) Non-Af 41 L, BUN/Creatinine Ratio 35.3 H , Glucose 266 H, Calcium 8.7 06/12/21 05:16: POC Glucose 269 H 06/12/21 06:44: POC Glucose 250 H Radiography Diagnostic Testing: Radiology Impression Chest X-Ray 06/11/21 21:50 IMPRESSION: New left basal patchy opacities, may represent compressive atelectasis or infectious changes. Electronically Signed: Venancio Irwin MD at 22:22 EDT , Physical Exam Const alert and no apparent distress HEENT head/scalp atraumatic and moist oral mucous membranes Head and Scalp: normocephalic Resp normal respiratory effort, no retractions, no use of accessory muscles and clear to auscultation bilaterally Cardio regular rate, regular rhythm, S1 normal heart sound and S2 normal heart sound GI normal to inspection, nondistended, normoactive bowel sounds, soft to palpation, non-tender and non-distended Extremity normal to inspection Assessment & Plan Assessment/Plan (1) Hyperglycemia: (2) COPD (chronic obstructive pulmonary disease): QUALIFIERS: COPD type: COPD with acute exacerbation Qualified Code(s): J44.1 - Chronic obstructive pulmonary disease with (acute) exacerbation PLAN: 1. Acute hyperglycemic hyperosmalar state * resolved * a1c 9.2 * likely caused by poorly controlled DM2 with concomitant steroid use * increase glargine to 20 units BID and observe overnight. Also adding prandial insulin 2. Acute COPD exacerbation * improving * finish steroid taper 3. Acute renal insufficiency * improved * baseline Creatinine around 1.7 TF to PCU Charges/Coding Visit Charges Inpatient E&M: 14028 Subs Hosp L2
[2021-06-12 11:05] LABS: Bedside Glucose 350 mg/dL (74-106)
[2021-06-12] MEDS: Pantoprazole Sodium 40 MG Tablet PO (11:05)
[2021-06-12] MEDS: Insulin Lispro 100 UNIT/ML INSULN.PEN 8 UNIT SC ×2 (11:06→16:54)
--- NOTE | 2021-06-12 11:15 | CASEMGMT ---
BRIAN TREVIZO Face to Face with patient for initial transition planning/care coordination assessment. RN JOSELINE introduced self and role at [facility]. Patient lying in bed, alert and oriented. Patient willing to participate in assessment and is able to answer all questions appropriately. Care providers, pharmacy, and demographics verified. Patient wishes to discharge home. Will monitor progress with therapy for possible HHC vs SNF. Patient states he has no further needs or concerns at this time. CM to follow for discharge planning needs that may arise. PCP: Paola Sanchez Specialists: Patient states he sees several specialist at the [facility] Preferred Pharmacy: [facility] Insurance: [place], [facility] Prescription Benefit: yes Living Will/HPOA: yes, son Austin [place]: son, girlfriend Living Arrangements: Patient lives with girlfriend in a 2 story home with access for bed and bath on first floor. 3 steps and railing to enter the home. Patient states he is normally independent at home but has been requiring more assistance at home. Transportation: self, girlfriend DME/HHC: Patient states he has BSC, cane, walker, nebulizer, pulse ox, [facility], glucometer with supplies at home. Patient states he has had HHC previously through the [place]. Patient states that [facility]. Will follow therapy to see if patient will need SNF at discharge. Disposition Plan: HHC vs SNF pending course of treatment and progress with therapy. Mylene JIANG, RN, CM
--- NOTE | 2021-06-12 12:04 | NURSING ---
report called transferred per chair with belongings to room 115
[2021-06-12 16:40] LABS: Bedside Glucose > 500 mg/dL (74-106)
[2021-06-12 19:36] LABS: Bedside Glucose 362 mg/dL (74-106)
[2021-06-12] MEDS: Furosemide 20 MG Tablet PO (21:09)
[2021-06-12] MEDS: Montelukast 10 MG Tablet PO (21:18)
[2021-06-12] MEDS: Insulin Glargine-YFGN 100 UNIT/ML Pen 20 UNIT SC (21:19)
[2021-06-12 22:21] LABS: Bedside Glucose 318 mg/dL (74-106)
[2021-06-13 02:22] VITALS: BP 155/71; PULSE 55; RESP 18; TEMP 36.4; O2SAT 99
[2021-06-13 03:13] VITALS: PULSE 56
[2021-06-13 07:00] VITALS: PULSE 54
[2021-06-13 08:25] VITALS: BP 135/55; PULSE 52; RESP 16; TEMP 36.1; O2SAT 100
[2021-06-13 08:28] VITALS: O2SAT 95
[2021-06-13] MEDS: Insulin Lispro 100 UNIT/ML INSULN.PEN 8 UNIT SC ×2 (08:28→11:32)
[2021-06-13] MEDS: Insulin Lispro 100 UNIT/ML INSULN.PEN SC ×2 (08:29→11:33)
[2021-06-13] MEDS: predniSONE 10 MG Tablet 30 MG PO (08:29)
--- NOTE | 2021-06-13 08:47 | PCM.DC ---
Discharge Instructions Diet Discharge Diet: 2000 Calorie Control Diet Activity Discharge Activity: Return to Normal Activity Dressing / Incision Call your doctor if you observe: - (uncontrolled blood sugars) Follow Up Care Test Results: Test results from this visit will be discussed in further detail at your follow-up appointment, if applicable. Discharge Plan Admission Admit Date/Time: 06/11/21 23:21 Primary Reason for Your Visit: hyperglycemia Attending Provider: Magno Sheppard Primary Care Provider: [facility] Instructions Patient Instructions: Diabetes Treat Severe Foot Infecs, Diabetes: Sick-Day Plan, Diabetes: Living Your Life, Diabetes: Meal Planning, Diabetes Carbs Fats Protein, ED COPD Flare Additional Instructions / Restrictions: Continue your steroids and finish them as prescribed. As long as you are on the steroids and even for several days after your blood sugars will be running higher. Plenty of water and rest Follow-up with your primary care physician the [facility] over the next week. Discharge Orders/Prescriptions Prescriptions: New insulin lispro [Humalog KwikPen Insulin] 100 unit/mL Insulin Pen 8 unit subcut TIDAC Qty: 15 RF: 0 insulin glargine-yfgn 100 unit/mL (3 mL) Insulin Pen 30 unit subcut BID Qty: 15 RF: 0 Continued nitroglycerin 400 mcg/spray spray,non-aerosol 1 spray SUBLINGUAL Q3-5M PRN (Reason: chest pain) Qty: 12 RF: 3 magnesium oxide 420 mg tablet 420 mg PO BID RF: 0 pantoprazole 40 mg tablet,delayed release (DR/EC) 40 mg PO DAILY Qty: 60 RF: 2 meclizine 25 mg tablet 25 mg PO TID PRN (Reason: dizziness) Qty: 60 RF: 0 benzonatate 100 mg capsule 100 mg PO BID-TID PRN (Reason: cough) Qty: 15 RF: 0 aspirin 81 MG tablet,delayed release (DR/EC) 81 mg PO DAILY RF: 0 montelukast 10 MG tablet 10 mg PO QHS RF: 0 albuterol sulfate 1 INHALER inhaler 2 puff inhalation Q4H PRN PRN (Reason: Shortness Of Breath) RF: 0 sodium chloride 1 SPRAY aerosol,spray 2 spry NARES BID PRN PRN (Reason: Nasal Dryness) RF: 0 rosuvastatin 40 MG tablet 40 mg PO QHS RF: 0 cholecalciferol (vitamin D3) 25 mcg (1,000 unit) tablet 2,000 unit PO DAILY RF: 0 albuterol sulfate 2.5 MG/3 ML solution for nebulization 2.5 mg inhalation Q6H PRN PRN (Reason: Sob &/Or Wheezing) RF: 0 clopidogrel 75 MG tablet 75 mg PO DAILY RF: 0 ipratropium bromide 1 SPRAY spray,non-aerosol 2 spray NASAL BID PRN PRN (Reason: runny nose) RF: 0 furosemide 40 MG tablet 20 mg PO RF: 0 carvedilol 6.25 MG tablet 6.25 mg PO BID RF: 0 losartan 25 MG tablet 25 mg PO DAILY RF: 0 tiotropium bromide 2.5 mcg/actuation mist 2 puff inhalation BID RF: 0 amiodarone 200 mg Tablet 200 mg PO DAILY RF: 0 apixaban 5 mg Tablet 5 mg PO BID RF: 0 cyanocobalamin (vitamin B-12) 1,000 mcg Tablet Extended Release 1,000 mcg PO DAILY RF: 0 atorvastatin 20 mg tablet RF: 0 fluticasone propionate 50 mcg/actuation spray,suspension INTRANASAL RF: 0 ezetimibe 10 mg tablet RF: 0 prednisone 10 mg tablet 50 mg PO DAILY 5 Days Qty: 25 RF: 0 prednisone 10 MG tablet 10 mg PO DAILY Qty: 63 RF: 0 Discontinued Victoza 2-[place] 0.6 mg/0.1 mL (18 mg/3 mL) pen injector 1.2 mg SC DAILY RF: 0 insulin glargine 100 unit/mL (3 mL) insulin pen 10 unit subcut DAILY RF: 0 ibuprofen 400 MG tablet 400 mg PO TID PRN PRN (Reason: Pain Score 1-10/10) Qty: 20 RF: 0 metformin 500 mg tablet 500 mg PO BID RF: 0 doxycycline hyclate 100 mg tablet 100 mg PO Q12H 5 Days Qty: 10 RF: 0 No Action (DME) spacer See Rx Instructions .ROUTE .MEDSUPPLY Qty: 1 RF: 0 [facility] - Within 2 Weeks Disposition Disposition (needs filled in before D/C Order can be placed): Home, Self Care
[2021-06-13 08:56] LABS: Bedside Glucose 225 mg/dL (74-106)
--- NOTE | 2021-06-13 08:57 | DS.PCM_ITS ---
Providers Date of Admission: 06/11/21 Primary Care Physician: [facility] Reason For Visit: ACUTE HYPERGLYCEMIA Diagnosis Discharge Diagnosis (1) Hyperglycemia: Status: Acute Code(s): R73.9 - Hyperglycemia, unspecified (2) COPD (chronic obstructive pulmonary disease): Status: Chronic Code(s): J44.9 - Chronic obstructive pulmonary disease, unspecified Qualifiers: COPD type: COPD with acute exacerbation Qualified Code(s): J44.1 - Chronic obstructive pulmonary disease with (acute) exacerbation Medications at Discharge Home Medications albuterol sulfate 2 puff INHALATION Q4H PRN PRN 06/05/16 aspirin 81 mg PO DAILY 06/05/16 montelukast 10 mg PO QHS 06/05/16 rosuvastatin 40 mg PO QHS 06/05/16 sodium chloride 2 spry NARES BID PRN PRN 06/05/16 nitroglycerin 400 mcg/spray translingual 1 spray SUBLINGUAL Q3-5M PRN #12 g 12/04/18 albuterol sulfate 2.5 mg INHALATION Q6H PRN PRN 03/16/19 carvedilol 6.25 mg PO BID 03/16/19 clopidogrel 75 mg PO DAILY 03/16/19 furosemide 20 mg PO 03/16/19 ipratropium bromide 2 spray NASAL BID PRN PRN 03/16/19 losartan 25 mg PO DAILY 03/16/19 magnesium oxide 420 mg tablet 420 mg PO BID tab 04/20/19 spacer #1 ea 06/04/19 pantoprazole 40 mg tablet,delayed release 40 mg PO DAILY #60 tab 06/08/19 cholecalciferol (vitamin D3) 25 mcg (1,000 unit) tablet 2,000 unit PO DAILY tab 06/10/19 tiotropium bromide 2.5 mcg/actuation mist for inhalation 2 puff INHALATION BID g 06/10/19 meclizine 25 mg tablet 25 mg PO TID PRN #60 tab 08/04/19 benzonatate 100 mg capsule 100 mg PO BID-TID PRN #15 cap 05/22/21 amiodarone 200 mg PO DAILY 05/27/21 apixaban 5 mg PO BID 05/27/21 atorvastatin 05/27/21 cyanocobalamin (vitamin B-12) 1,000 mcg PO DAILY 05/27/21 ezetimibe mg 05/27/21 fluticasone propionate INTRANASAL 05/27/21 prednisone 50 mg PO DAILY 5 Days #25 tab 05/27/21 prednisone 10 mg PO DAILY #63 tab 06/01/21 insulin glargine-yfgn 30 unit SUBCUT BID #15 ml 06/13/21 insulin lispro [Humalog KwikPen Insulin] 8 unit SUBCUT TIDAC #15 ml 06/13/21 Hospital Course Operations None Procedures None Summary of Care Provided Minutes Spent on Discharge: 32 Hospital Course: 1. Acute hyperglycemic hyperosmalar state resolved a1c 9.2 likely caused by poorly controlled DM2 with concomitant steroid use. Patient states that his blood sugar normally would not get under 300. Patient was on Victoza, Lantus and metformin. His home dose of Lantus was 10 units daily. I have recommended that since his blood sugars were very poorly controlled to begin with that the steroids likely just exposed to his post poor control. I have recommended discontinuing metformin and Victoza and increasing his basal Lantus to 30 units twice daily +8 units with meals. I advised the patient to continue checking his blood sugar and to keep a record to presented to his primary care provider to see if and what changes would be necessary in the future. I did explain to patient the difference between basal insulin as well as prandial insulin as well as long-acting when short acting. He expressed understanding. increase glargine to 20 units BID and observe overnight. Also adding prandial insulin 2. Acute COPD exacerbation improving finish steroid taper 3. Acute renal insufficiency improved baseline Creatinine around 1.7 Physical Exam Resp normal respiratory effort, no retractions, no use of accessory muscles and clear to auscultation bilaterally Cardio regular rate, regular rhythm, S1 normal heart sound and S2 normal heart sound GI normal to inspection, nondistended, normoactive bowel sounds Medical Records Data Medical Nutrition Assessment Dietitian: Malnutrition Criteria Met Start: 06/12/21 10:57 Freq: Status: Active Protocol: Document 06/12/21 10:57 AG (Rec: 06/12/21 10:57 [id number]) Nutrition Malnutrition Evidence of Malnutrition Exists Yes Malnutrition (severe): Acute Illness/Injury Evidenced By Suboptimal Energy Intake ( Severe),Weight Loss (Severe) Clinical Problem Acute Disease or Injury Related Malnutrition Etiology severe, acute malnutrition related to inadequate energy intake w/ increased energy needs with acute illness Signs/Symptoms as evidenced by unintentional wt loss of 12.4#/6% wt loss < 1 month; estimated PO intake meeting <50% of estimated energy needs >5 days Status Active Problem Recommendation Dietitian Recommendations/Changes continue cardiac, 1800 calorie controlled diet; will consider Glucerna w/ medpass if current PO intake at meals declines given acute malnutrition. Weight / BMI Weight Weight: 88.8 kg Body Mass Index (BMI) 29.9 ABG / Lab / Microbiology Data Result Diagrams: 06/12/21 04:10 06/12/21 04:10 Laboratory: Laboratory Results - last 24 hr 06/12/21 11:01: POC Glucose 350 H 06/12/21 16:29: POC Glucose > 500 H* 06/12/21 19:32: POC Glucose 362 H 06/12/21 21:14: POC Glucose 318 H 06/13/21 08:24: POC Glucose 225 H D/C Instructions Discharge Diet: 2000 Calorie Control Diet Call your doctor if you observe: - (uncontrolled blood sugars) Meaningful Use Info Meaningful Use Diagnoses (Choose all that apply): None applicable Discharge Plan Admission Admit Date/Time: 06/11/21 23:21 Primary Reason for Your Visit: hyperglycemia Attending Provider: Magno Sheppard [facility] Provider: [facility] Instructions Patient Instructions: Diabetes Treat Severe Foot Infecs, Diabetes: Sick-Day Plan, Diabetes: Living Your Life, Diabetes: Meal Planning, Diabetes Carbs Fats Protein, ED COPD Flare Additional Instructions / Restrictions: Continue your steroids and finish them as prescribed. As long as you are on the steroids and even for several days after your blood sugars will be running higher. Plenty of water and rest Follow-up with your primary care physician the [facility] over the next week. Discharge Orders/Prescriptions Prescriptions: New insulin lispro [Humalog KwikPen Insulin] 100 unit/mL Insulin Pen 8 unit subcut TIDAC Qty: 15 RF: 0 insulin glargine-yfgn 100 unit/mL (3 mL) Insulin Pen 30 unit subcut BID Qty: 15 RF: 0 Continued nitroglycerin 400 mcg/spray spray,non-aerosol 1 spray SUBLINGUAL Q3-5M PRN (Reason: chest pain) Qty: 12 RF: 3 magnesium oxide 420 mg tablet 420 mg PO BID RF: 0 pantoprazole 40 mg tablet,delayed release (DR/EC) 40 mg PO DAILY Qty: 60 RF: 2 meclizine 25 mg tablet 25 mg PO TID PRN (Reason: dizziness) Qty: 60 RF: 0 benzonatate 100 mg capsule 100 mg PO BID-TID PRN (Reason: cough) Qty: 15 RF: 0 aspirin 81 MG tablet,delayed release (DR/EC) 81 mg PO DAILY RF: 0 montelukast 10 MG tablet 10 mg PO QHS RF: 0 albuterol sulfate 1 INHALER inhaler 2 puff inhalation Q4H PRN PRN (Reason: Shortness Of Breath) RF: 0 sodium chloride 1 SPRAY aerosol,spray 2 spry NARES BID PRN PRN (Reason: Nasal Dryness) RF: 0 rosuvastatin 40 MG tablet 40 mg PO QHS RF: 0 cholecalciferol (vitamin D3) 25 mcg (1,000 unit) tablet 2,000 unit PO DAILY RF: 0 albuterol sulfate 2.5 MG/3 ML solution for nebulization 2.5 mg inhalation Q6H PRN PRN (Reason: Sob &/Or Wheezing) RF: 0 clopidogrel 75 MG tablet 75 mg PO DAILY RF: 0 ipratropium bromide 1 SPRAY spray,non-aerosol 2 spray NASAL BID PRN PRN (Reason: runny nose) RF: 0 furosemide 40 MG tablet 20 mg PO RF: 0 carvedilol 6.25 MG tablet 6.25 mg PO BID RF: 0 losartan 25 MG tablet 25 mg PO DAILY RF: 0 tiotropium bromide 2.5 mcg/actuation mist 2 puff inhalation BID RF: 0 amiodarone 200 mg Tablet 200 mg PO DAILY RF: 0 apixaban 5 mg Tablet 5 mg PO BID RF: 0 cyanocobalamin (vitamin B-12) 1,000 mcg Tablet Extended Release 1,000 mcg PO DAILY RF: 0 atorvastatin 20 mg tablet RF: 0 fluticasone propionate 50 mcg/actuation spray,suspension INTRANASAL RF: 0 ezetimibe 10 mg tablet RF: 0 prednisone 10 mg tablet 50 mg PO DAILY 5 Days Qty: 25 RF: 0 prednisone 10 MG tablet 10 mg PO DAILY Qty: 63 RF: 0 Discontinued Victoza 2-Sheldon 0.6 mg/0.1 mL (18 mg/3 mL) pen injector 1.2 mg SC DAILY RF: 0 insulin glargine 100 unit/mL (3 mL) insulin pen 10 unit subcut DAILY RF: 0 ibuprofen 400 MG tablet 400 mg PO TID PRN PRN (Reason: Pain Score 1-10/10) Qty: 20 RF: 0 metformin 500 mg tablet 500 mg PO BID RF: 0 doxycycline hyclate 100 mg tablet 100 mg PO Q12H 5 Days Qty: 10 RF: 0 No Action (DME) spacer See Rx Instructions .ROUTE .MEDSUPPLY Qty: 1 RF: 0 Referrals / Follow Up[facility] [[facility] - Within 2 Weeks Disposition Disposition (needs filled in before D/C Order can be placed): Home, Self Care Charges/Coding Visit Charges Inpatient E&M: 01971 Disch Hosp
[2021-06-13] MEDS: Carvedilol 6.25 MG Tablet PO (10:04)
[2021-06-13] MEDS: Amiodarone 200 MG Tablet PO (10:04)
[2021-06-13] MEDS: APIXABAN 5 MG TABLET PO (10:05)
[2021-06-13] MEDS: Pantoprazole Sodium 40 MG Tablet PO (10:05)
[2021-06-13] MEDS: Cyanocobalamin 500 MCG Tablet 1000 MCG PO (10:05)
[2021-06-13] MEDS: Magnesium Chloride 64 MG Delay Rel.Tablet 128 MG PO (10:05)
[2021-06-13] MEDS: guaiFENesin 1,200 MG Tablet 1200 MG PO (10:05)
[2021-06-13] MEDS: Aspirin E.C. 81 MG Tablet PO (10:05)
[2021-06-13] MEDS: Cholecalciferol (VIT D3) 25 MCG TABLET (1,000 UNITS) 50 MCG PO (10:05)
[2021-06-13] MEDS: Clopidogrel Bisulfate 75 MG Tablet PO (10:42)
[2021-06-13] MEDS: Furosemide 20 MG Tablet PO (10:42)
--- NOTE | 2021-06-13 10:48 | CASEMGMT ---
Pt up in room independent and states no need for any further therapy. SStaten RN CM
--- NOTE | 2021-06-13 11:10 | CASEMGMT ---
Pt's insulin scripts were sent to [facility] and pt received call from [facility] stating cost was over $300. Pt states he would prefer to take scripts to [facility] to have them filled. Script obtained and provided to pt by Nelia TORRES. Pt states plans to go to [place] this afternoon or tomorrow to have scripts filled. Pt voices no further questions/concerns/needs. Geronimo TORRES CM
[2021-06-13] MEDS: Insulin Glargine-YFGN 100 UNIT/ML Pen 30 UNIT SC (11:32)
[2021-06-13 13:20] VITALS: BP 112/61; PULSE 61; RESP 16; O2SAT 100
[2021-06-13 14:10] LABS: Bedside Glucose 340 mg/dL (74-106)
== END 2021-06-13 13:30 | disposition home or self-care (01) | DRG 637 ==
LOC: ED 21:18 → ICU 23:40 → PCU 06-12 12:29
PROVIDERS: Admitting Provider Hospitalist; Emergency Provider Emergency Medicine
DX: E11.00 Type 2 diabetes mellitus with hyperosmolarity without nonketotic hyperglycemic-hyperosmolar coma (NKHHC) (principal); E43 Unspecified severe protein-calorie malnutrition; J96.10 Chronic respiratory failure, unspecified whether with hypoxia or hypercapnia; J44.1 Chronic obstructive pulmonary disease with (acute) exacerbation; E11.22 Type 2 diabetes mellitus with diabetic chronic kidney disease; Z99.81 Dependence on supplemental oxygen; Z79.4 Long term (current) use of insulin; N18.31 Chronic kidney disease, stage 3a; E78.5 Hyperlipidemia, unspecified; I12.9 Hypertensive chronic kidney disease with stage 1 through stage 4 chronic kidney disease, or unspecified chronic kidney disease; I25.10 Atherosclerotic heart disease of native coronary artery without angina pectoris; I25.5 Ischemic cardiomyopathy; I25.2 Old myocardial infarction; G47.33 Obstructive sleep apnea (adult) (pediatric); N28.9 Disorder of kidney and ureter, unspecified; Z95.810 Presence of automatic (implantable) cardiac defibrillator; Z79.02 Long term (current) use of antithrombotics/antiplatelets; Z79.82 Long term (current) use of aspirin; Z87.891 Personal history of nicotine dependence; Z79.899 Other long term (current) drug therapy; Z79.01 Long term (current) use of anticoagulants; Z68.32 Body mass index [BMI] 32.0-32.9, adult
CPT/HCPCS: 71045; 80048; 82009; 82962; 83036; 83735; 83930; 85025; 97802; 99251; 99285; J7030; A4216; G0463; J7799

== ENCOUNTER → 2024-07-08 | Outpatient (CLI) | payer OTHER, SELFPAY ==
--- NOTE | 2024-07-08 13:30 | PCM.PR.HP ---
History of Present Illness General Arrival date:: 07/08/24 Arrival time:: 13:30 Date of Referral:: 06/29/24 Date of Evaluation: 07/08/24 Referring Physician: YUNIOR Primary Diagnosis: COPD History of Present Pulmonary Event mMRC Breathless Scale: When is the patient short of breath? Y/N Grade: Description of Breathlessness: 0 I only get breathless with strenuous exercise. 1 I get short of breath when hurrying on level ground or walking up a slight hill. 2 On level ground, I walk slower than people of the same age because of breathless, or have to stop for breath when walking at my own pace. 3 I stop for breath after walking 100 yards or after a few minutes on level ground. 4 I am too breathless to leave the house or I am breathless when dressing. Respiratory Problems: Yes Retain Secretions, Chest Pain, Fatigue, Able to Speak in Full Sentences, Dizziness, Hoarseness, Anxiety, Dyspnea with Activity and Cough with Secretions; No Limited Range of Motion, Wheezing, Ankle Swelling, Panic, Dyspnea at Rest or Dyspnea Lying Down Flat Medications Home Medications albuterol sulfate 90 mcg/actuation aerosol inhaler 2 puff inhalation Q4H PRN PRN Shortness Of Breath 06/05/16 aspirin 81 mg tablet,delayed release 81 mg PO DAILY heart health 06/05/16 montelukast 10 mg tablet 10 mg PO QHS allergies 06/05/16 rosuvastatin 40 mg tablet 40 mg PO QHS cholesterol 06/05/16 sodium chloride 0.65 % nasal spray aerosol 2 spry NARES BID PRN PRN Nasal Dryness 06/05/16 nitroglycerin 400 mcg/spray translingual 1 spray sublingual Q3-5M PRN chest pain #12 grams 12/04/18 albuterol sulfate 2.5 mg/3 mL (0.083 %) solution for nebulization 2.5 mg inhalation Q6H PRN PRN Sob &/Or Wheezing 03/16/19 carvedilol 6.25 mg tablet 6.25 mg PO BID hypertension 03/16/19 clopidogrel 75 mg tablet 75 mg PO DAILY antiplatelet 03/16/19 furosemide 40 mg tablet 20 mg PO heart failure 03/16/19 ipratropium bromide 42 mcg (0.06 %) nasal spray 2 spray NASAL BID PRN PRN runny nose 03/16/19 losartan 25 mg tablet 25 mg PO DAILY hypertension 03/16/19 magnesium oxide 420 mg tablet 420 mg PO BID supplement 04/20/19 spacer #1 ea 06/04/19 pantoprazole 40 mg tablet,delayed release 40 mg PO DAILY #60 tabs 06/08/19 cholecalciferol (vitamin D3) 25 mcg (1,000 unit) tablet 2,000 unit PO DAILY supplement 06/10/19 tiotropium bromide 2.5 mcg/actuation mist for inhalation 2 puff inhalation BID copd 06/10/19 meclizine 25 mg tablet 25 mg PO TID PRN dizziness #60 tabs 08/04/19 benzonatate 100 mg capsule 100 mg PO BID-TID PRN cough #15 caps 05/22/21 amiodarone 200 mg tablet 200 mg PO DAILY 05/27/21 apixaban 5 mg tablet 5 mg PO BID 05/27/21 atorvastatin 20 mg tablet 05/27/21 cyanocobalamin (vitamin B-12) 1,000 mcg tablet,extended release 1,000 mcg PO DAILY 05/27/21 ezetimibe 10 mg tablet mg 05/27/21 fluticasone propionate 50 mcg/actuation nasal spray,suspension intranasal 05/27/21 prednisone 10 mg tablet 50 mg (5 x 10 mg) PO DAILY 5 days #25 tabs 05/27/21 prednisone 10 mg tablet 10 mg PO DAILY #63 tabs 06/01/21 insulin glargine-yfgn 100 unit/mL (3 mL) subcutaneous pen 30 unit (0.3 mL) subcut BID #15 mL 06/13/21 insulin lispro 100 unit/mL subcutaneous pen (Humalog KwikPen (U-100) Insulin) 8 unit (0.08 mL) subcut TIDAC #15 mL 06/13/21 Allergies Allergies No Known Allergies Allergy (Verified 06/11/21 20:34) Secretions Thick:: Yes Amount/Day:: 1 TBSP Sleep Disorder Evaluation Hx of Sleep Apnea: Yes Do you snore loudly (louder than talking or can be heard through closed doors)?: No Do you often feel tired/ fatigued/ sleepy during daytime?: No Has anyone observed you stop breathing during sleep?: No History of Hypertension (for STOP score): Yes STOP Results: Negative Medical Utilization Medical Devices Do you use a peak flow meter at home?: Yes Do you use a spacer device with your inhalers?: No Medical Utilization Number of hospital visits in the last year?: 0 Number of emergency room visits in the last year?: 6 Do you see your physician on a regular schedule?: Yes How often?: twice a year Advanced Directives Advanced Directives Do you have a Healthcare Power of [employer]fficient [employer]er?: Yes Living Will: Yes Advance Directives Information Provided: No Advance Directives on File: No DNR Order?:: No Past Medical History Covid-19 Screening Physicial Symptoms Other Clinical Concerns Exposure Risk Pertinent Comorbidities 65 years or older:: Yes Has a chronic lung disease or moderate to severe asthma:: Yes Diabetic:: Yes Medical History Past Medical History (Updated 06/21/21 @ 00:01 by Background Dajossy) History of coronary artery disease Z86.79 COPD (chronic obstructive pulmonary disease) J44.9 Type 2 diabetes mellitus E11.9 Lung mass R91.8 Smoking F17.200 Appropriate for low-dose CT lung cancer screening due in October 2019, will remain appropriate for annual screening through 2022. Stage 3 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 J44.9 History of ventricular fibrillation Z86.79 Carpal tunnel syndrome, bilateral G56.03 Pulmonary nodules R91.8 Hyperlipidemia E78.5 Essential hypertension I10 Ischemic cardiomyopathy I25.5 DEMAR (obstructive sleep apnea) G47.33 doesn't use CPAP Atherosclerosis of coronary artery bypass graft(s) without angina pectoris I25.810 Successful PTCA/ODILON distal LCX with a 2.25 x 20 Promus Synergy stent,[facility] Patient is also status post three-vessel bypass surgery at [facility] in 1998, with subsequent catheterizations and stents over the last 5 years, the specifics of which are difficult to interpret Atherosclerosis of coronary artery of [place] heart I25.10 Successful PTCA/ODILON distal LCX with a 2.25 x 20 Promus Synergy stent,10/26/2018 per DJN @ [facility] Patient is also status post three-vessel bypass surgery at [facility] in 1998, with subsequent catheterizations and stents over the last 5 years, the specifics of which are difficult to interpret Congestive heart failure I50.9 Chronic respiratory failure J96.10 CKD (chronic kidney disease) stage 3, GFR 30-59 ml/min N18.3 DM2 (diabetes mellitus, type 2) E11.9 COPD (chronic obstructive pulmonary disease) J44.9 NSTEMI (non-ST elevated myocardial infarction) I21.4 Pneumonia, pneumococcal J13 COPD exacerbation J44.1 Acute respiratory failure with hypoxia J96.01 Surgical History Past Surgical History (Updated 06/21/21 @ 00:01 by Shane Maddox) History of left heart catheterization (03/18/19) Z98.890 Segmented LV systolic dysfunction- Mild; LVEF: by LV gram 50-55 %; Elevated Left Ventricular End Diastolic Pressure; Non obstructive coronary arteries; Widely patent LCX and LAD stents; Aortic Valve Stenosis- Mild per [facility] 03/18/19 Presence of implantable cardioverter-defibrillator (ICD) (~2015) Z95.810 Per [place] records, AICD in 2006, revision 2004 and 2010, then 2016 S/P CABG x 3 (1996) Z95.1 SINGH to LAD, SVG to PDA, SVG to PLV [facility] 1996 Stented coronary artery (12/30/18) Z95.5 TAXUS ODILON to RCA 2005 in [place]; 2.5 x 13 mm Cypher to septal acoustic engineer 06/2008;Successful PTCA/ODILON distal LCX with a 2.25 x 20 Promus Synergy stent,10/26/2018 per CHANELL @ [facility].12/30/18: Successful PTCA/ODILON mid LAD with a 2.25 x 28 Promus Synerg Hx of cholecystectomy Z90.49 Significant Family History Family History Mother Myocardial infarction Diabetes COPD (chronic obstructive pulmonary disease) Father Myocardial infarction Sister Breast cancer Colon cancer Sister Breast cancer Sister Cancer lung cancer Sister Cancer skin cancer Brother Myocardial infarction Bleeding disorder clot in heart Brother Diabetes Social History Smoking History Smoking Status: Former smoker Years Smokin (stopped nu 2006) Packs Smoked per Day: 4 (3-4) Alcohol Use Alcohol Usage: No Occupation Occupation (List type of work in comments):: Retired Functioning ADL/IADL Current Ability Current Ability: Independent: Self-Care (e.g.,grooming, dressing, & bathing), Independent: Ambulation, Independent: Transfer and Independent: Household tasks (e.g., light meal prep, laundry, shopping) Pt Functioning Prior to Problem Prior Functioning: Self-Care (e.g.,grooming, dressing, & bathing): Independent, Ambulation: Independent, Transfer: Independent and Household tasks (e.g., light meal prep, laundry, shopping): Independent Social Environment Status Marital Status: Current Living Arrangements Living Environment:: Spouse Children How many children do you have?: 6 Do any of your children live nearby?: Yes Safety Do you feel safe in your surroundings?: Yes Assistance Do you need any assistance at home?: no Review of Systems Review of Systems Review of Systems Respiratory: Reports Cough, Pleuritic Pain, SOB upon Exertion, Sputum production, Wheezing, Appetite, Normal, Dizziness/Lightheadedness and Fatigue; Denies SOB at Rest, PVD, Sexual changes or Sleep, Normal Pain Is Patient Pain Free?: Yes Risk Factor Assessment Chief Complaint Chief Complaint: COPD Vital Signs Pulse Rate: 43 Pulse Ox: 98 Blood Pressure: 142/69 Diabetes Diabetic History: Type II Obesity Height: 5 ft 8 in Weight:: 181 lb Weight in Pounds: 181.0 lbs Body Mass Index (BMI): 27.5 Nutritional Referral for Obesity: No Physical Activity Physical Inactivity: Reg Exercise 30 min/day Risk Stratification Risk Guidelines: Moderate Risk: Risk Factor for Smoking, Risk Factor for Obesity, Risk Factor for Sedentary Lifestyle and Risk Factor for Depression and Highest Risk: Risk Factor for Dyslipidemia, Risk Factor for Diabetes and Risk Factor for Hypertension For Smoking Smoking Risk Guidelines For Dyslipidemia Dyslipidemia Risk Guidelines For Diabetes Mellitus Diabetes Risk Guidelines For Obesity/Overweight Obesity/Overweight Risk Guidelines For Hypertension Hypertension Risk Guidelines For Sedentary Lifestyle Sedentary Lifestyle Risk Guidelines For Depression Depression Risk Guidelines Motivation Motivation to Participate On a scale of 1 to 10, how prepared are you to commit to attending program?: 8 What do you see as barriers to successfully being able to complete the program?: nothing What do you see as the benefits of succesfully completing the program? In other words, what do you hope to get out of participating in the program?: lungs clear Are there issues you are dealing with that will interfere with completing the program?: no Do you have a spouse or signficant other, family or friends who will help support you to complete the program?: yes Diagnostic Data Review Pulmonary Function Test FEV1:: 56 FVC:: 63 FEV1/FVC%:: 88
[2024-07-08 13:37] VITALS: BP 142/69
--- NOTE | 2024-07-08 13:37 | PR.ITP_ITS ---
General Information2 General Information Admitting Diagnosis: COPD PFT FEV1:: 56 FVC:: 63 FEV1/FVC%:: 88 Personal Learning Style/Barriers Personal Learning Style:: Audio/Visual Barriers to Learning: None Education/Goals MA Patient Goals: Increase muscle strength: Initial Assessment, Experience less dyspnea: Initial Assessment, Improve energy level: Initial Assessment, Participate in home exercise: Initial Assessment, Improve the ability to cope with ADLs: Initial Assessment, Improve knowledge of lung disease: Initial Assessment, Understand how to use medications: Initial Assessment, Increase knowledge of oxygen use: Initial Assessment, Improve my quality of life: Initial Assessment, Reduce Stress/relaxation techniques: Initial Assessment and Other:: Initial Assessment (sleep study) Exercise - Initial Assessment Visit Date of Eval: 07/08/24 Problem/Goals Problems: Deconditioning, Knowledge deficit exercise guidelines and Knowledge deficit exercise safety Goals:: Aerobic exercise 30-60 mins x 12 weeks [36 sessions] Physician Prescribed Exercise Modalities: Treadmill, Rower, Schwinn Airdyne AD-7, ZIPDIGS Stepper, ZIPDIGS Pro- II Ergometer and ZIPDIGS Lateral [place] Intensity: 60-80% of age predicted maximum heart rate reserve Current METSs:: 2 Target HR:: 112 (84-112) Resting Blood Pressure: 142/69 Minimum SpO2 with exercise: 98 (room air) Plan Plan and Plan to Review:: Benefits of exercise, Core components of exercise, How to measure dyspnea level, How to monitor dyspnea level, Exercise intensity, Exercise safety guideline, Home exercise guidelines and [place]: 3-4/11-13 Home Exercise Mode: Walking Nutrition/Wt Mgmt - Initial Visit Date of Eval: 07/08/24 (initial eval ) Weight Management Admit Height:: 5 ft 8 in Admit Weight:: 181 lb Admit BMI:: 27.5 Intervention Referral to dietitian:: No Will attend diet classes:: Yes Intervention/Plan: Instruct on ideal BMI & set weight loss goal w/patient, Assist pt to ID & incorporate diet changes for weight loss by S9, Refer to Structured Weight Loss program as appropriate, Encourage goal of using 250- 300dcal per session for weight loss and Other additional plan/interventions Plan Nutrition Plan: Yes: Review BMI or WC & identify target wt & strategies for wt control, Yes: Nutrition education class:, Yes: Medication education class [Prednisone]:, Yes: Weight control education class:, Yes: Education re: Need for ongoing weight monitoring, Yes: Food diary: and Yes: Physical activity log: Nutrition/Wt Mgmt - 30-Day Weight Management Height: 5 ft 8 in Weight:: 181 lb BMI: 27.5 Nutrition/Wt Mgmt - 60-Day Weight Management Height: 5 ft 8 in Weight:: 181 lb BMI: 27.5 Nutrition/Wt Mgmt - 90-Day Weight Management Height: 5 ft 8 in Weight:: 181 lb BMI: 27.5 Nutrition/Wt Mgmt - Final Weight Management Height: 5 ft 8 in Weight:: 181 lb BMI: 27.5 Psychosocial - Initial Assess Visit Date of Eval: 07/08/24 (initial eval ) Problems/Goals History of Emotional Disorders: None Psychosocial Goals: 1. Patient is free from overwhelming symtoms of depression (or anxiety, 2. Identifies personal stressors & states the strategies for managing, 3. Identifies activities to decrease isolation and/or symptoms of, 4. Improved psychosocial coping skills., 5. Verbalizes coping strategies., 6. Adequate treatment of depression. and 7. Improved Q.O.L. Psychosocial Test Tool Used:: Pulmonary QOL and PHQ-9 Questionnaire Referral to Behavioral Health PS - Interventions: Yes: Attend Stress Management Classes Intervention/Plan: See List Interventions/Plan:: Assess stressors,coping strategies & signs of derpression on admission, Instruct/assist pt to develop coping & personal stress Mgt strategies, Refer to Behavioral Health if appropriate, Refer to Physician if appropriate, Instruct patient to recognize signs & symptoms of depression and Instruct patient to recog Psychosocial - 30-Day Problems/Goals History of Emotional Disorders: None Psychosocial Goals: 1. Patient is free from overwhelming symtoms of depression (or anxiety, 2. Identifies personal stressors & states the strategies for managing, 3. Identifies activities to decrease isolation and/or symptoms of, 4. Improved psychosocial coping skills., 5. Verbalizes coping strategies., 6. Adequate treatment of depression. and 7. Improved Q.O.L. Psychosocial Test Tool Used:: Pulmonary QOL and PHQ-9 Questionnaire Referral to Behavioral Health PS - Interventions: Yes: Attend Stress Management Classes Plan Interventions/Plan:: Assess stressors,coping strategies & signs of derpression on admission, Instruct/assist pt to develop coping & personal stress Mgt strategies, Refer to Behavioral Health if appropriate, Refer to Physician if appropriate, Instruct patient to recognize signs & symptoms of depression and Instruct patient to recog Psychosocial - 60-Day Problems/Goals History of Emotional Disorders: None Psychosocial Goals: 1. Patient is free from overwhelming symtoms of depression (or anxiety, 2. Identifies personal stressors & states the strategies for managing, 3. Identifies activities to decrease isolation and/or symptoms of, 4. Improved psychosocial coping skills., 5. Verbalizes coping strategies., 6. Adequate treatment of depression. and 7. Improved Q.O.L. Psychosocial Test Tool Used:: Pulmonary QOL and PHQ-9 Questionnaire Referral to Behavioral Health PS - Interventions: Yes: Attend Stress Management Classes Plan Interventions/Plan:: Assess stressors,coping strategies & signs of derpression on admission, Instruct/assist pt to develop coping & personal stress Mgt strategies, Refer to Behavioral Health if appropriate, Refer to Physician if appropriate, Instruct patient to recognize signs & symptoms of depression and Instruct patient to recog Psychosocial - 90-Day Problems/Goals History of Emotional Disorders: None Psychosocial Goals: 1. Patient is free from overwhelming symtoms of depression (or anxiety, 2. Identifies personal stressors & states the strategies for managing, 3. Identifies activities to decrease isolation and/or symptoms of, 4. Improved psychosocial coping skills., 5. Verbalizes coping strategies., 6. Adequate treatment of depression. and 7. Improved Q.O.L. Psychosocial Test Tool Used:: Pulmonary QOL and PHQ-9 Questionnaire Referral to Behavioral Health PS - Interventions: Yes: Attend Stress Management Classes Plan Interventions/Plan:: Assess stressors,coping strategies & signs of derpression on admission, Instruct/assist pt to develop coping & personal stress Mgt strategies, Refer to Behavioral Health if appropriate, Refer to Physician if appropriate, Instruct patient to recognize signs & symptoms of depression and Instruct patient to recog Psychosocial - Final Assess Problems/Goals History of Emotional Disorders: None Psychosocial Goals: 1. Patient is free from overwhelming symtoms of depression (or anxiety, 2. Identifies personal stressors & states the strategies for managing, 3. Identifies activities to decrease isolation and/or symptoms of, 4. Improved psychosocial coping skills., 5. Verbalizes coping strategies., 6. Adequate treatment of depression. and 7. Improved Q.O.L. Psychosocial Test Tool Used:: Pulmonary QOL and PHQ-9 Questionnaire Referral to Behavioral Health PS - Interventions: Yes: Attend Stress Management Classes Plan Interventions/Plan:: Assess stressors,coping strategies & signs of derpression on admission, Instruct/assist pt to develop coping & personal stress Mgt strategies, Refer to Behavioral Health if appropriate, Refer to Physician if appropriate, Instruct patient to recognize signs & symptoms of depression and Instruct patient to recog Oxygen & Oxygen Titration Init Visit Date of Eval: 07/08/24 (initial eval ) Initial Assessment Oxygen on Admission: None SpO2:: 98 (room air) Patient Reports:: Prod cough daily >1 Tbsp Goal Oxygen & Oxygen Tritration Goals: Effective hypoxemia control and Uses O2 as Rx'd/safely Plans Plan: Monitor SpO2 rest & with exercise and Recommend appropriate FiO2 to Pt/MD Reviewed prescribed medications:: Purpose, Schedule, Side effects and Importance of compliance Instruct correct technique/timing & care:: MDI, DPI, Nebulizer and Return demo use of inhaler Bronchial Hygiene Plan: Controlled cough, CPT, Vibratory PEP device, VEST, Role of exercise in secretion clearance, NS Nasal spray, Hydration, Hand hygiene, Evaluate sputum, When to call MD, Signs/symptoms to report:, Influenza/Pneumovax vaccines and Cleaning of respiratory equipment Oxygen & Oxygen Titration 30D Reassessment SpO2:: 98 (room air) Oxygen & Oxygen Titration 60D Reassessment SpO2:: 98 (room air) Oxygen & Oxygen Titration 90D Reassessment SpO2:: 98 (room air) Oxygen & Oxygen Titration BA Reassessment SpO2:: 98 (room air) Core Components - Initial Visit Date of Eval: 07/08/24 (initial eval ) Hypertension Hypertension Diagnosis:: Hypertension ICD-10 I10 BP: 142/69 [place] [employer] Hypertension Guidelines Outcomes/Goals: Able to verbalize/achieve optimal blood pressure <130/80 and Incorporates diet changes & exercise for blood pressure control by DC Tobacco - Initial Assessment Tobacco Program Goals Stages of Change:: Contemplate Learning Barriers: Ready to Learn Do you have family support?: Yes Tobacco Use: Non-smoker Gave Education Materials For:: Tobacco Triggers, Pulmonary Disease, Risk Factors, Breathing Techniques, Medical Compliance, Exacerbation Signs & Symptoms and Stress & Relaxation Exacerbation Mgmt & Airway Clearance Problems:: Hypoxemia, No home O2, No portable O2, Needs O2 Rx recommendation and Poor knowledge of O2 use/safety Hypoxemia Goals:: Hypoxemia managed, Port system and Using O2 as Rx's safely Bronchial Hygiene Problems:: Ineffective secretion clearance and Respiratory infection Prevention/Management Goals: Pt demonstrates effective cough, effective secretion clearance. and Pt describes signs and symptoms of infection. Patient Reports:: Prod cough daily >1 Tbsp Plan: Monitor SpO2 rest & with exercise and Recommend appropriate FiO2 to Pt/MD Instruct correct technique/timing & care:: MDI, DPI, Nebulizer and Return demo use of inhaler Bronchial Hygiene Plan: Controlled cough, CPT, Vibratory PEP device, VEST, Role of exercise in secretion clearance, NS Nasal spray, Hydration, Hand hygiene, Evaluate sputum, When to call MD, Signs/symptoms to report:, Influenza/Pneumovax vaccines and Cleaning of respiratory equipment Medication Interventions/plans: Instruct on medication effects & side effects, Review medication list w/patient every two weeks and Instruct importance of taking meds as ordered & assist problem solving Medication Goals: Adherence to prescribed medications and Correct technique/timing & care of MDI, DPI, nebulizer, and spacer. Reviewed prescribed medications:: Purpose, Schedule, Side effects and Importance of compliance Diabetes Diabetes:: Yes Insulin: No Referral to dietitian:: No Referral to Diabetic Clinic:: No Will attend diet classes:: Yes Core Components - 30 DAYS Hypertension Hypertension Diagnosis:: Hypertension ICD-10 I10 Resting Blood Pressure:: 142/69 [place] [employer] Hypertension Guidelines Outcomes/Goals: Able to verbalize/achieve optimal blood pressure <130/80 and Incorporates diet changes & exercise for blood pressure control by DC Tobacco - 30-Day Tobacco Program Goals Stages of Change:: Contemplate Do you have family support?: Yes Tobacco Use: Non-smoker Gave Education Materials For:: Tobacco Triggers, Pulmonary Disease, Risk Factors, Breathing Techniques, Medical Compliance, Exacerbation Signs & Symptoms and Stress & Relaxation Diabetes Diabetes:: Yes Insulin dependent injection/pump?: No Core Components - 60 DAYS Hypertension Hypertension Diagnosis:: Hypertension ICD-10 I10 Resting Blood Pressure:: 142/69 [place] [employer] Hypertension Guidelines Outcomes/Goals: Able to verbalize/achieve optimal blood pressure <130/80 and Incorporates diet changes & exercise for blood pressure control by DC Tobacco - 60-Day Tobacco Program Goals Stages of Change:: Contemplate Do you have family support?: Yes Tobacco Use: Non-smoker Gave Education Materials For:: Tobacco Triggers, Pulmonary Disease, Risk Factors, Breathing Techniques, Medical Compliance, Exacerbation Signs & Symptoms and Stress & Relaxation Diabetes Diabetes:: Yes Insulin dependent injection/pump?: No Core Components - 90 DAYS Hypertension Hypertension Diagnosis:: Hypertension ICD-10 I10 Resting Blood Pressure:: 142/69 [place] [employer] Hypertension Guidelines Outcomes/Goals: Able to verbalize/achieve optimal blood pressure <130/80 and Incorporates diet changes & exercise for blood pressure control by DC Tobacco - 90-Day Tobacco Program Goals Stages of Change:: Contemplate Do you have family support?: Yes Tobacco Use: Non-smoker Gave Education Materials For:: Tobacco Triggers, Pulmonary Disease, Risk Factors, Breathing Techniques, Medical Compliance, Exacerbation Signs & Symptoms and Stress & Relaxation Diabetes Diabetes:: Yes Insulin dependent injection/pump?: No Core Components - Final Hypertension Hypertension Diagnosis:: Hypertension ICD-10 I10 Resting Blood Pressure:: 142/69 [place] [employer] Hypertension Guidelines Outcomes/Goals: Able to verbalize/achieve optimal blood pressure <130/80 and Incorporates diet changes & exercise for blood pressure control by DC Tobacco - Final Tobacco Program Goals Stages of Change:: Contemplate Do you have family support?: Yes Tobacco Use: Non-smoker Diabetes Diabetes:: Yes Insulin dependent injection/pump?: No Patient Health Questionnaire PHQ-9 Screening Initial Assessment: 1. Little interest or pleasure in doing things: Several days 2. Feeling down, depressed, or hopeless: Not at all 3. Trouble falling or staying asleep, or sleeping too much: Nearly every day 4. Feeling tired or having little energy: More than half the days 5. Poor appetite or overeating: More than half the days 6. Feeling bad about yourself -- or that you are a failure or have let yourself or your family down: Several days 7. Trouble concentrating on things, such as reading the newspaper or wa tching television: Not at all 8. Moving or speaking so slowly that other people could have noticed. Or the opposite - being so fidgety or restless that you have been moving around a lot more than usual: Several days 9. Thoughts that you would be better off , or of hurting yourself in some way: Not at all How difficult have these problems made it for you to do your work, take care of things at home, or get along with other people?: Not difficult at all Total Score: 10 Knowledge Questionaire (BCKQ) Information Information: [place] COPD Knowledge Questionnaire (BCKQ) This questionnaire is designed to find out what you know about your lung problem. It should be completed without help form anyone else. This usually takes between 10 and 20 minutes. Your answers will help us to find out what information you need to help you to understand and manage your lung condition. [place] which you think is the correct answer. Questions 1. In COPD: a. In COPD the word chronic means it is severe: True b. COPD can only be confirmed by breathing tests: Don't know c. In COPD ther is usually gradual worsening over time: Don't know d. In COPD oxygen levels in the blood are always low: Don't know e. COPD is usually in people less than 40 years old: Don't know 2. COPD: [place] than 80% of COPD cases are caused by cigarette smoking: True b. COPD can be caused by occupational dust exposure: True c. Longstanding asthma can develop into COPD: Don't know d. COPD is commonly an inherited disease: False e. Women are less vunerable to the effects of cigarette than men: False 3. The following symptoms are Common in COPD: a. Swelling of the ankles is common in COPD:: True b. Fatigue [tiredness] is common in COPD: True c. Wheezing is common in COPD: True d. Crushing chest pain is common in COPD: Don't know e. Rapid weight loss is common in COPD: False 4. Breathlessness in COPD: a. Severe breathlessness prevents travel by air: True b. Breathlessness can be worsened by eating large meals: True c. Breathlessness means that your oxygen levels are low: True d. Breathlessness is a normal response to exercise: Don't know e. Breathlessness is primarily caused by a narrowing of the bronchial tubes: False 5. Phlegm (sputum): a. Coughing phlegm is a common symptom in COPD: Don't know b. Clearing phlegm is more difficult if you get dehydrated: Don't know c. Bronchodilator inhalers can help clear phlegm: False d. Phlegm causes harm if swallowed: Don't know e. Clearing phlegm can be assisted by breathing exercises: True 6. Chest infections / exacerbations: a. Chest infections often cause coughing of blood: Don't know b. Chest infection phlegm usually becomes coloured (ylw/grn): True cExerbations (episodes of worsening) can occur in the absence of chest infection: False d. Chest infections are always accompanied by a high temperature: False e. Steroid tablets should be taken whenever there is an exacerbation: Don't know 7. Excercise in COPD: aWalking excercises better than breathing to improve fitness: False b. Exercise should be avoided as it strains the lungs: False c. Exercise can help maintain your bone density: True d. Exercise helps relieve depression: Don't know e. Exercise should be stopped if it makes you breathless: True 8. Smoking: a. Stopping smoking will reduce the risk of heart disease: Don't know b. Stopping smoking will slow down further lung damage: Don't know c. Stopping smoking is pointless as the damage is done: Don't know d.Stopping smoking usually results in improved lung function: Don't know eNicotine replacement therapy only available on prescription: Don't know 9. Vaccination: a. A flu jab is recommended every year: True b. You can get flu from having a flu jab: Don't know c. You can only have a flu jab if you are 65 or over: False d. A pneumonia jab protects against all forms of pneumonia: True e.You can have a pneumonia jab and a flu job on the same day: False 10. Inhaled bronchodilators: a. Bronchodilators act quickly (within 10 minutes): Don't know b. Both short & long acting bronchodilators can be taken on the same day: Don't know c. Spacers (volumatic,nebuhaler,serochamber)should be dried w/atowel after washing: False d. A spacer device increases the medication to the lungs: Don't know e. Tremor may be a side effect of bronchodilators: Don't know 11. Antibiotic treatment in COPD: a. To be effective, the course should last at least 10 days: Don't know b. Excessive use of antibiotics can cause resistant bacteria (germs): True c. Antibiotics will clear all chest infections: False d. Antibiotic treatment is necessary for an exacerbation (worsening) however mild: Don't know e. Seek advice if antibiotics cause severe diarrhoea: True 12. Steroid tablets given for COPD (eg Prednisolone): a. Steroid tablets help strengthen muscles: Don't know b. Steroid tablets should be avoided if there is a chest infection: Don't know c. The risk of long-term side effects due to steroids is less w/short courses then w/continous treatment: Don't know dIndigestion is common side effect from using steroid tablet: Don't know e. Steroid tablets can increase your appetite: True 13. Inhaled steroids (brown, red or orange): a. Inhaled steroids should be stopped if you are given steroid tablets: Don't know bSteroid inhalers can be used for rapid relief breathlessnes: True c. Spacer devices reduce the risk of getting thrush in the mouth: Don't know d.Steroid inhaler should be taken before your bronchodilator: Don't know e. Inhaled steroids improve lung function in COPD: Don't know COPD Knowledge Test Total Score:: 21 COPD Assessment Test [CAT] Questions Never cough = 0, Cough all the time = 5: 4 No phlegm = 0, Chest full of phlegm = 5: 5 No chest tightness = 0, Chest very tight = 5: 2 No breathless w/exertion = 0, Very breathless w/exertion = 5: 5 No limitations w/activity = 0, Very limited w/activity = 5: 2 Confident leaving home = 0, Not at all confident = 5: 3 Sleep soundly = 0, Don't sleep soundly = 5: 5 Lots of energy = 0, No energy at all = 5: 2 Total CAT score:: 28 Nutrition Survey Nutrition Survey Instructions Scoring Instructions Nutrition Survey Initial: Have you lost >10 lbs over the past 2 months without trying?: No Are you following a special diet at home for diabetes, low fat, or low salt?: Yes Are you interested in meeting with a dietitian for help understanding your diet?: No Do you eat less than 3 meals a day?: No Do you eat fatty meats ([place], sausage, ribs, etc), fried foods, desserts, large amounts of salad dressings, margarine, butter, or cheese most days?: Yes Do you have food allergies? [Enter types in comment field]: No Do you eat in restaurants more than 3 times a week?: Yes Do you season food with salt, seasoning salt, or garlic salt?: No Do you used canned, boxed, frozen meals, or soups, seasoning packets?: No Total Score:: 3
[2024-07-08 13:51] VITALS: BP 142/69
[2024-07-08 14:11] VITALS: PULSE 43; O2SAT 98; BMI 27.5
[2024-07-08 14:39] VITALS: O2SAT 98; BMI 27.5
== END | disposition home or self-care (01) ==
LOC: PR 13:25
DX: Z00.00 Encounter for general adult medical examination without abnormal findings (principal)

== ENCOUNTER 2024-07-16 10:00 | Outpatient (RCR) | payer OTHER, SELFPAY ==
[2024-07-08 14:39] VITALS: BMI 27.5
== END 2024-07-17 23:59 ==
LOC: PR 10:00
DX: J44.9 Chronic obstructive pulmonary disease, unspecified (principal)
CPT/HCPCS: 97150; 94626

== ENCOUNTER 2024-08-16 10:00 | Outpatient (RCR) | payer OTHER, SELFPAY ==
[2024-07-08 14:39] VITALS: BMI 27.5
--- NOTE | 2024-08-06 08:21 | PR.ITP_ITS ---
Exercise - Initial Assessment Visit Session Number:: 10 Physician Prescribed Exercise Modalities: Treadmill, [employer] Airdyne AD-7 and [employer] Stepper Current METSs:: 2.8 Target HR:: 112 (84-112) Current RPD:: 2-3 Maximum Exercise HR:: 82 Resting Blood Pressure: 120/50 Maximum Exercise Blood Pressure: 130/60 Minimum SpO2 with exercise: 90 (Pt is not on any supplemental oxygen.) EKG Type: SB to NSR w/ rare ectopy Nutrition/Wt Mgmt - Initial Visit Session Number:: 10 Weight Management Admit Height:: 5 ft 8 in Admit Weight:: 189 lb 8 oz Admit BMI:: 28.8 Nutrition/Wt Mgmt - 30-Day Visit Date of Eval: 08/06/24 Session Number:: 10 Weight Management Height: 5 ft 8 in Weight:: 189 lb 8 oz BMI: 28.8 Weight Goals Progress:: Progressing (Pt is scheduled to attend nutrition class. Low sodium heart healthy diet encouraged.) Nutrition/Wt Mgmt - 60-Day Visit Session Number:: 10 Weight Management Height: 5 ft 8 in Weight:: 189 lb 8 oz BMI: 28.8 Nutrition/Wt Mgmt - 90-Day Visit Session Number:: 10 Weight Management Height: 5 ft 8 in Weight:: 189 lb 8 oz BMI: 28.8 Nutrition/Wt Mgmt - Final Visit Session Number:: 10 Weight Management Height: 5 ft 8 in Weight:: 189 lb 8 oz BMI: 28.8 Psychosocial - Initial Assess Visit Session Number:: 10 Problems/Goals History of Emotional Disorders: None Psychosocial Goals: 1. Patient is free from overwhelming symtoms of depression (or anxiety, 2. Identifies personal stressors & states the strategies for managing, 3. Identifies activities to decrease isolation and/or symptoms of, 4. Improved psychosocial coping skills. and 5. Verbalizes coping strategies. Psychosocial Test Pulmonary QOL Score: 10 Referral to Behavioral Health PS - Interventions: Yes: Attend Stress Management Classes Intervention/Plan: See List Interventions/Plan:: Assess stressors,coping strategies & signs of derpression on admission, Instruct/assist pt to develop coping & personal stress Mgt strategies, Refer to Behavioral Health if appropriate, Refer to Physician if appropriate, Instruct patient to recognize signs & symptoms of depression, Instruct patient to recog and Other additional plan/intervention Psychosocial - 30-Day Visit Date of Eval: 06/20/25 Session Number:: 10 Problems/Goals History of Emotional Disorders: None Psychosocial Goals: 1. Patient is free from overwhelming symtoms of depression (or anxiety, 2. Identifies personal stressors & states the strategies for managing, 3. Identifies activities to decrease isolation and/or symptoms of, 4. Improved psychosocial coping skills. and 5. Verbalizes coping strategies. Psychosocial Test Pulmonary QOL Score: 10 Referral to Behavioral Health PS - Interventions: Yes: Attend Stress Management Classes Plan Interventions/Plan:: Assess stressors,coping strategies & signs of derpression on admission, Instruct/assist pt to develop coping & personal stress Mgt strategies, Refer to Behavioral Health if appropriate, Refer to Physician if appropriate, Instruct patient to recognize signs & symptoms of depression, Instruct patient to recog and Other additional plan/intervention Psychosocial - 60-Day Visit Session Number:: 10 Problems/Goals History of Emotional Disorders: None Psychosocial Goals: 1. Patient is free from overwhelming symtoms of depression (or anxiety, 2. Identifies personal stressors & states the strategies for managing, 3. Identifies activities to decrease isolation and/or symptoms of, 4. Improved psychosocial coping skills. and 5. Verbalizes coping strategies. Psychosocial Test Pulmonary QOL Score: 10 Referral to Behavioral Health PS - Interventions: Yes: Attend Stress Management Classes Plan Interventions/Plan:: Assess stressors,coping strategies & signs of derpression on admission, Instruct/assist pt to develop coping & personal stress Mgt strategies, Refer to Behavioral Health if appropriate, Refer to Physician if appropriate, Instruct patient to recognize signs & symptoms of depression, Instruct patient to recog and Other additional plan/intervention Psychosocial - 90-Day Visit Session Number:: 10 Problems/Goals History of Emotional Disorders: None Psychosocial Goals: 1. Patient is free from overwhelming symtoms of depression (or anxiety, 2. Identifies personal stressors & states the strategies for managing, 3. Identifies activities to decrease isolation and/or symptoms of, 4. Improved psychosocial coping skills. and 5. Verbalizes coping strategies. Psychosocial Test Pulmonary QOL Score: 10 Referral to Behavioral Health PS - Interventions: Yes: Attend Stress Management Classes Plan Interventions/Plan:: Assess stressors,coping strategies & signs of derpression on admission, Instruct/assist pt to develop coping & personal stress Mgt strategies, Refer to Behavioral Health if appropriate, Refer to Physician if appropriate, Instruct patient to recognize signs & symptoms of depression, Instruct patient to recog and Other additional plan/intervention Psychosocial - Final Assess Visit Session Number:: 10 Problems/Goals History of Emotional Disorders: None Psychosocial Goals: 1. Patient is free from overwhelming symtoms of depression (or anxiety, 2. Identifies personal stressors & states the strategies for managing, 3. Identifies activities to decrease isolation and/or symptoms of, 4. Improved psychosocial coping skills. and 5. Verbalizes coping strategies. Psychosocial Test Pulmonary QOL Score: 10 Referral to Behavioral Health PS - Interventions: Yes: Attend Stress Management Classes Plan Interventions/Plan:: Assess stressors,coping strategies & signs of derpression on admission, Instruct/assist pt to develop coping & personal stress Mgt strategies, Refer to Behavioral Health if appropriate, Refer to Physician if appropriate, Instruct patient to recognize signs & symptoms of depression, Instruct patient to recog and Other additional plan/intervention Oxygen & Oxygen Titration Init Visit Session Number:: 10 Initial Assessment SpO2:: 90 (Pt is not on any supplemental oxygen.) Oxygen & Oxygen Titration 30D Visit Date of Eval: 08/06/24 Session Number:: 10 Reassessment Reassessment- 30 Days: Demonstrate knowledge of O2 Rx at rest & w/exercise SpO2:: 90 (Pt is not on any supplemental oxygen.) Oxygen & Oxygen Titration 60D Visit Date of Eval: 08/06/24 Session Number:: 10 Reassessment SpO2:: 90 (Pt is not on any supplemental oxygen.) Oxygen & Oxygen Titration 90D Visit Date of Eval: 08/06/24 Session Number:: 10 Reassessment SpO2:: 90 (Pt is not on any supplemental oxygen.) Oxygen & Oxygen Titration BA Visit Date of Eval: 08/06/24 Session Number:: 10 Reassessment SpO2:: 90 (Pt is not on any supplemental oxygen.) Core Components - Initial Visit Session Number:: 10 Hypertension Hypertension Diagnosis:: Hypertension ICD-10 I10 BP: 120/50 [place] [employer] Hypertension Guidelines Blood Pressure: 130/60 Outcomes/Goals: Able to verbalize/achieve optimal blood pressure <130/80 and Incorporates diet changes & exercise for blood pressure control by DC Tobacco - Initial Assessment Tobacco Program Goals Tobacco Use: Non-smoker Diabetes Diabetes:: Yes Core Components - 30 DAYS Visit Date of Eval: 08/06/24 Session Number:: 10 Hypertension Hypertension Diagnosis:: Hypertension ICD-10 I10 Resting Blood Pressure:: 120/50 [place] [employer] Hypertension Guidelines Peak Exercise Blood Pressure:: 130/60 Change in medication: No Outcomes/Goals: Able to verbalize/achieve optimal blood pressure <130/80 and Incorporates diet changes & exercise for blood pressure control by DC Interventions/plan: Instruct on optimal blood pressure, hypertension & medications, Instruct on effects of sodium, alcohol, stress, exercise &hypertension and Other additional plan/interventions 30 day Reassessments:: Progressing Reassessment Notes & Comments:: Pt's BP's are within AHA normal limits on most days. Tobacco - 30-Day Tobacco Program Goals Tobacco Use: Non-smoker Exacerbation Mgmt & Airway Clearance Reassessment: Demonstrates knowledge of O2 Rx at rest and Demonstrates knowledge of O2 Rx with exercise Bronchial Hygiene Plan: Yes: Pt demonstrates correctly for effective cough, Yes: Pt demo correct for CPT, Yes: Pt demo correct for device, Yes: Pt demo correct for NS nasal spray and Yes: Pt demo correct for sputum management Medication Medication list reviewed:: Yes Taking medications 100% of the time:: Met (pt taking meds as prescribed.) Medication reassessment: Yes: Pt demonstrates correct technique timing for MDI, Yes: Pt demonstrates correct technique timing for DPI, Yes: Pt demonstrates correct technique timing for NEB and Yes: Pt demonstrates correct technique timing for spacer Diabetes Diabetes:: Yes [employer] - 60 DAYS Visit Session Number:: 10 Hypertension Hypertension Diagnosis:: Hypertension ICD-10 I10 Resting Blood Pressure:: 120/50 [place] [employer] Hypertension Guidelines Peak Exercise Blood Pressure:: 130/60 Change in medication: No Outcomes/Goals: Able to verbalize/achieve optimal blood pressure <130/80 and In corporates diet changes & exercise for blood pressure control by DC Interventions/plan: Instruct on optimal blood pressure, hypertension & medications, Instruct on effects of sodium, alcohol, stress, exercise &hypertension and Other additional plan/interventions 60 day Reassessments:: Progressing Reassessment Notes & Comments:: Pt's BP's are within AHA normal limits on most days. Tobacco - 60-Day Tobacco Program Goals Tobacco Use: Non-smoker Exacerbation Mgmt & Airway Clearance Reassessment: Demonstrates knowledge of O2 Rx at rest and Demonstrates knowledge of O2 Rx with exercise Bronchial Hygiene Plan: Yes: Pt demonstrates correctly for effective cough, Yes: Pt demo correct for CPT, Yes: Pt demo correct for device, Yes: Pt demo correct for NS nasal spray and Yes: Pt demo correct for sputum management Medication Taking medications 100% of the time:: Met (pt taking meds as prescribed.) Medication reassessment: Yes: Pt demonstrates correct technique timing for MDI, Yes: Pt demonstrates correct technique timing for DPI, Yes: Pt demonstrates correct technique timing for NEB and Yes: Pt demonstrates correct technique timing for spacer Diabetes Diabetes:: Yes [employer] - 90 DAYS Visit Session Number:: 10 Hypertension Hypertension Diagnosis:: Hypertension ICD-10 I10 Resting Blood Pressure:: 120/50 [place] [employer] Hypertension Guidelines Peak Exercise Blood Pressure:: 130/60 Outcomes/Goals: Able to verbalize/achieve optimal blood pressure <130/80 and Incorporates diet changes & exercise for blood pressure control by DC Interventions/plan: Instruct on optimal blood pressure, hypertension & medications, Instruct on effects of sodium, alcohol, stress, exercise &hypertension and Other additional plan/interventions 90 day Reassessments:: Progressing Reassessment Notes & Comments:: Pt's BP's are within AHA normal limits on most days. Tobacco - 90-Day Tobacco Program Goals Tobacco Use: Non-smoker Exacerbation Mgmt & Airway Clearance Bronchial Hygiene Plan: Yes: Pt demonstrates correctly for effective cough, Yes: Pt demo correct for CPT, Yes: Pt demo correct for device, Yes: Pt demo correct for NS nasal spray and Yes: Pt demo correct for sputum management Medication Medication reassessment: Yes: Pt demonstrates correct technique timing for MDI, Yes: Pt demonstrates correct technique timing for DPI, Yes: Pt demonstrates correct technique timing for NEB and Yes: Pt demonstrates correct technique timing for spacer Diabetes Diabetes:: Yes Core Components - Final Visit Session Number:: 10 Hypertension Hypertension Diagnosis:: Hypertension ICD-10 I10 Resting Blood Pressure:: 120/50 [place] [employer] Hypertension Guidelines Peak Exercise Blood Pressure:: 130/60 Outcomes/Goals: Able to verbalize/achieve optimal blood pressure <130/80 and Incorporates diet changes & exercise for blood pressure control by DC Tobacco - Final Tobacco Program Goals Tobacco Use: Non-smoker Exacerbation Mgmt & Airway Clearance Bronchial Hygiene Plan: Yes: Pt demonstrates correctly for effective cough, Yes: Pt demo correct for CPT, Yes: Pt demo correct for device, Yes: Pt demo correct for NS nasal spray and Yes: Pt demo correct for sputum management Medication Medication reassessment: Yes: Pt demonstrates correct technique timing for MDI, Yes: Pt demonstrates correct technique timing for DPI, Yes: Pt demonstrates correct technique timing for NEB and Yes: Pt demonstrates correct technique timing for spacer Diabetes Diabetes:: Yes Knowledge Questionaire (BCKQ) Information Information: [place] COPD Knowledge Questionnaire (BCKQ) This questionnaire is designed to find out what you know about your lung problem. It should be completed without help form anyone else. This usually takes between 10 and 20 minutes. Your answers will help us to find out what information you need to help you to understand and manage your lung condition. [place] which you think is the correct answer. Nutrition Survey Nutrition Survey Instructions Scoring Instructions
[2024-08-06 08:25] VITALS: BP 120/50
[2024-08-06 08:37] VITALS: BP 120/50; BP 130/60; O2SAT 90; BMI 28.8
== END 2024-08-16 23:59 ==
LOC: PR 10:00
DX: J44.9 Chronic obstructive pulmonary disease, unspecified (principal)
CPT/HCPCS: 97150; 94626

== ENCOUNTER → 2024-08-30 | Outpatient (CLI) | payer OTHER, SELFPAY ==
[2024-08-06 08:37] VITALS: BMI 28.8
[2024-09-02 07:21] VITALS: BMI 28.2
== END | disposition home or self-care (01) ==
PROVIDERS: Referring Provider Nurse Practitioner Acute Care; Visit Provider Nurse Practitioner Acute Care
DX: G47.33 Obstructive sleep apnea (adult) (pediatric) (principal)
CPT/HCPCS: 95810

== ENCOUNTER 2024-08-31 00:56 | Inpatient (IN) | payer OTHER, SELFPAY ==
[2024-08-06 08:37] VITALS: BMI 28.8
[2024-08-31] VITALS (20 sets, daily range): BP systolic 115–190; BP diastolic 58–95; PULSE 48–82; RESP 12–27; TEMP 36.1–36.7; O2SAT 88–100; BMI 28.0; BMI 27.8
[2024-08-31 01:27] LABS: Hematocrit 47.2 % (40-54); Hemoglobin 15.3 g/dL (13.0-16.5); Immature Granulocytes Count 0.060 X10^3/uL (0.0-0.0); Mean Corp Hgb Conc 32.4 g/dL (32-36); Mean Corpuscular Volume 92.9 fL (80-94); Mean Platelet Vol. 8.9 fl (6.2-12.0); NRBC Flagged by Analyzer 0 % (0-5); Platelet Count 230 K/mm3 (150-450); RBC Distribution Width CV 14.3 % (11.6-14.6); RBC Distribution Width SD 48.5 fl (35.1-43.9); Red Blood Count 5.08 M/mm3 (4.6-6.2); White Blood Count 10.5 K/mm3 (4.4-11.0)
--- OUTSIDE RECORDS SUMMARY | 2024-08-31 01:40 | XMS RPT_ITS | CCD ---
Author Organization [facility] Care Team Providers Care Manager Vehicle Name Role Phone Dr. Ghassan Munoz Primary Care Provider [phone] Dr. Ghassan Munoz Referring Provider [phone] MADAY Ceron Attending Provider [phone] Ghassan Munoz Primary Care Provider [phone] Dr. Ghassan Munoz Referring Provider [phone] MADAY Ceron Attending Provider [phone] [place], [place] Primary Care Provider UnavailDr. Barndon Feliciano Emergency Provider Dr. Bryan Gonzalez Admit Provider Dr. Magno Sheppard Attending Provider Dr. Magno Sheppard Other Provider DR JUDITH WEAVER Admitting Unavailable DR JUDITH WEAVER Attending Unavailable DR JUDITH WEAVER Primary Care Unavailable [facility] Primary Care Physician [facility] Primary Care Unavailable ELIEZER PRO MD Attending Unavailable NANCY PINEDA Consulting Unavailable BRYN ROSEN DO Primary Care UnavailNANCY Estrada MD Admitting Unavailable NANCY COELHO MD Attending Unavailable ARNIE MARTÍNEZ Consulting Unavailable FELIZ CAMPA Attending Unavailable FELIZ CAMPA Admitting Unavailable FELIZ CAMPA Primary Care Unavailable JEFERSON TAVAREZ MD Admitting Unava ilable JEFERSON TAVAREZ MD Primary Care Unava ilJEFERSON Molina MD Attending Unava ilable JANEE ORDOÑEZ MD Consulting Unavailable PROVIDER, UNKNOWN Consulting Unavailable PROVIDER, UNKNOWN Consulting Unavailable PROVIDER, UNKNOWN Consulting Unavailable JBARA, YASER MD Admitting Unavailable RITU OLIVA MD Primary Care Unavailable RITU OLIVA MD Attending Unavailable JUDITH WEAVER Admitting Unavailable JUDITH WEAVER Primary Care Unavailable JUDITH WEAVER Attending Unavailable FELIZ CAMPA Primary Care Unavailable FELIZ CAMPA Attending Unavailable FELIZ CAMPA [facility] [place] [facility] [place] [facility] Referring Provider Unavailable DAVID JONES Attending Provider DAVID JONES Referring Provider DAVID JONES Attending Provider DAVID JONES Referring Provider [phone] [facility] [place] [facility] [place] Referring Provider Unavailable Maria Luisa Bowens [facility] [place] [facility] Un[facility] RUDI WALLS Attending Unavailable RUDI WALLS Ref[facility] Referring Unavailable Maria Luisa Potts NP Attending [facility] Un[facility] Unavailable Maria Luisa Potts NP Attending Unavailable [address] DEPARTMENT DISPATCHERMaria Luisa Referring [facility] [place] [facility] Unavailable RUDI WALLS Attending Unavailable RUDI WALLS Referring [facility] [place] [facility] Unavailable RUDI WALLS Attending Unavailable RUDI WALLS Referring Unavailable Medications Current Medications Medication Drug Class(es) Dates Sig (Normalized) Sig (Original) 0.75 ML semaglutide 2.27 MG/ML Auto-Injector (1 source) Start: 03-03-2022 inject 1 dose by subcutaneous injection every week semaglutide 1.7 mg/0.75 mL (1.7 mg dose) subcutaneous solution Dose : 1.7 mg =, Subcutaneous, qWeek, in the abdomen, thigh, or upper arm Start Date: 03/03/22 Status: Ordered albuterol 0.83 mg/ml inhalation solution (20 sources) beta2-Adrenergic Agonist Start: 03-03-2022 take 1 dose by inhalation every six hours as needed albuterol 2.5 mg/3 mL (0.083%) inhalation solution Dose : 2.5 mg = 3 mL, Nebulized, q6hr, PRN sob Start Date: 03/03/22 Status: Ordered Start: 03-03-2022 take 2 puff(s) by in halation four times daily as needed for wheezing albuterol 90 mcg/inh inhalation powder 2 puff(s), Inhalation, QID, PRN as needed for shortness of breath or wheezing Start Date: 03/03/22 Status: Ordered Start: 03-16-2019 take 2.5 mg by inhal ation every six hours as needed for wheezing Albuterol Sulfate 2.5 MG/3 ML solution for nebulization Active 2.5 mg INHALATION EVERY 6 HOURS NEEDED as needed for Sob &/Or Wheezing March 16, 2019 1:00am Start: 06-05-2016 take 1 puff(s) by in halation every four hours as needed Albuterol Sulfate Active 2 PUFF INHALATION EVERY 4 HOURS NEEDED June 05, 2016 9:50am Start: 06-05-2016 take 1 puff(s) by in halation every four hours as needed Albuterol Sulfate Active 2 PUFF INHALATION EVERY 4 HOURS NEEDED June 05, 2016 9:50am Start: 06-05-2016 Albuterol Sulf ate 1 INHALER inhaler Active 2 NMA INHALATION EVERY 4 HOURS NEEDED as needed for Shortness Of Breath June 05, 2016 12:00am amiodarone hydrochloride 200 mg oral tablet (12 sources) Antiarrhythmic Start: 05-27-2021 End: 08-05-2024 take 1 tablet by mouth once daily Amiodarone 200 mg tablet Active 200 mg PO DAILY August 05, 2024 8:16am atorvastatin 20 mg oral tablet (10 sources) HMG-CoA Reductase Inhibitor Start: 03-03-2022 atorvastatin 20 mg oral tablet Dose : 20 mg = 1 tab(s), Oral, qDay Start Date: 03/03/22 Status: Ordered Start: 05-27-2021 Atorvastatin A ctive May 27, 2021 3:18pm Start: 05-27-2021 Atorvastatin 2 0 mg tablet Active May 27, 2021 12:00am carvedilol 3.125 mg oral tablet (19 sources) alpha-Adrenergic Suzanne, beta-Adrenergic Suzanne Start: 03-03-2022 carvedilol 3.125 mg oral tablet Dose : 3.125 mg = 1 tab(s), Oral, BID Start Date: 03/03/22 Status: Ordered Start: 10-27-2018 End: 03-16-2019 take 1 tablet by mouth twice daily Carvedilol 6.25 MG tablet Active 6.25 mg PO TWICE A DAY March 16, 2019 4:14pm hypertension cholecalciferol 0.025 mg oral tablet (20 sources) Vitamin D Start: 06-10-2019 take 1 tablet by mouth once daily Cholecalciferol (Vitamin D3) 25 mcg (1,000 unit) tablet Active 2000 U PO DAILY June 10, 2019 10:55am supplement Start: 04-20-2019 End: 06-10-2019 take 1 tablet by mouth twice daily Cholecalciferol (Vitamin D3) 25 mcg (1,000 unit) tablet Discontinued 1000 U PO TWICE A DAY April 20, 2019 2:46pm June 10, 2019 10:59am supplement Start: 06-05-2016 End: 04-20-2019 take 1 tablet by mouth once daily Cholecalciferol (Vitamin D3) 1,000 UNIT tablet Discontinued 1000 U PO DAILY June 05, 2016 12:00am April 20, 2019 2:49pm supplement clopidogrel 75 mg oral tablet (9 sources) [id number] Platelet Inhibitor Start: 03-16-2019 take 1 tablet by mouth once daily Clopidogrel 75 MG tablet Active 75 mg PO DAILY March 16, 2019 1:00am antiplatelet ezetimibe 10 mg oral tablet (10 sources) Dietary Cholesterol Absorption Inhibitor Start: 05-27-2021 Ezetimibe Active MG May 27, 2021 3:18pm Start: 05-27-2021 Ezetimibe 10 m g tablet Active mg May 27, 2021 12:00am fluticasone propionate 0.05 mg/actuat metered dose nasal spray (19 sources) Corticosteroid Start: 03-03-2022 take 1 dose nasal route once daily as needed fluticasone 50 mcg/inh NASAL spray Dose = 2 spray(s), Nostril, each, qDay, PRN Sinus symptoms Start Date: 03/03/22 Status: Ordered Start: 05-27-2021 Fluticasone Pr opionate 50 mcg/actuation spray,suspension Active INTRANASAL May 27, 2021 12:00am Start: 03-16-2019 End: 06-08-2019 Fluticasone Propionate Disco ntinued 2 SPRAY NASAL DAILY March 16, 2019 3:49pm June 08, 2019 10:12am Start: 03-16-2019 End: 06-08-2019 Fluticasone Propionate 1 SPR AY spray,suspension Discontinued 2 NMA NASAL DAILY March 16, 2019 1:00am June 08, 2019 10:12am allergies furosemide 20 mg oral tablet (19 sources) Loop Diuretic Start: 03-03-2022 furosemide 20 mg oral tablet Dose : 20 mg = 1 tab(s), Oral, qDay Start Date: 03/03/22 Status: Ordered Start: 03-16-2019 End: 08-05-2024 take 1 tablet by mouth every other day Furosemide 40 MG tablet Discontinued 20 mg PO March 16, 2019 4:14pm August 05, 2024 8:18am heart failure ONE TAB EVERY OTHER DAY Start: 03-16-2019 take 1 tablet by frieda th every other day Furosemide Active 20 MG PO March 16, 2019 4:14pm ONE TAB EVERY OTHER DAY Start: 10-27-2018 End: 03-16-2019 take 1 tablet by mouth once daily Furosemide 40 MG tablet Discontinued 40 mg PO DAILY 30 0 October 27, 2018 12:00am March 16, 2019 4:14pm 3 ml insulin aspart, human 100 unt/ml pen injector (10 sources) Insulin Analog Start: 03-03-2022 NovoLOG FlexPe n 100 units/mL injectable solution 4 units and sliding scale, Subcutaneous, TIDAC Start Date: 03/03/22 Status: Ordered Start: 06-05-2016 End: 12-24-2018 Insulin Aspart U-100 Discont inued 0 UNIT SQ BEFORE MEALS AND AT BEDTIME June 05, 2016 9:50am December 24, 2018 9:32am Start: 06-05-2016 End: 12-24-2018 Insulin Aspart U-100 100 UNI T/ML solution Discontinued 0 U SQ BEFORE MEALS AND AT BEDTIME June 05, 2016 12:00am December 24, 2018 9:32am blood sugar Please contact the information source for Protocol details. insulin glargine 100 units/mL subcutaneous solution (1 source) Start: 03-03-2022 inject 1 dose by subcutaneous injection once daily insulin glargine 100 units/mL subcutaneous solution Dose : 22 unit(s) =, Subcutaneous, qDay Start Date: 03/03/22 Status: Ordered Insulin Glargine-Yfgn (5 sources) Start: 06-13-2021 Insulin Glargi ne-Yfgn Active 30 UNIT SC TWICE A DAY 15 June 13, 2021 8:54am Start: 06-13-2021 Insulin Glargi ne-Yfgn 100 unit/mL (3 mL) Insulin Pen Active 30 U SC TWICE A DAY 15 0 June 13, 2021 12:00am Start: 06-13-2021 Insulin Glargi ne-Yfgn 100 unit/mL (3 mL) Insulin Pen Active 30 U SC TWICE A DAY 15 June 13, 2021 12:00am 3 ml insulin lispro 100 unt/ml pen injector (5 sources) Insulin Analog Start: 06-13-2021 Insulin Lispro (Humalog Kwikpen Insulin) 100 unit/mL Insulin Pen Active 8 U SC THREE TIMES DAILY BEFORE MEALS 15 0 June 13, 2021 12:00am ipratropium bromide 0.042 mg/actuat metered dose nasal spray (9 sources) Anticholinergic Start: 03-16-2019 Ipratropium Br omide Active 2 SPRAY NASAL TWICE DAILY NEEDED March 16, 2019 3:49pm Start: 03-16-2019 End: 08-05-2024 Ipratropium Shirley 1 SPRAY spray,non-aerosol Discontinued 2 NMA NASAL TWICE DAILY NEEDED as needed for runny nose March 16, 2019 1:00am August 05, 2024 8:21am losartan potassium 25 mg oral tablet (19 sources) Angiotensin 2 Receptor Suzanne Start: 10-27-2018 End: 03-16-2019 take 1 tablet by mouth once daily Losartan 25 MG tablet Active 25 mg PO DAILY March 16, 2019 4:14pm hypertension magnesium oxide 140 mg oral capsule (20 sources) Start: 03-03-2022 magnesium oxid e 140 mg oral capsule Dose : 420 mg = 3 cap(s), Oral, BID Start Date: 03/03/22 Status: Ordered Start: 04-20-2019 take 1 tablet by frieda th twice daily Magnesium Oxide 420 mg tablet Active 420 mg PO TWICE A DAY April 20, 2019 2:46pm supplement Start: 10-27-2018 End: 04-20-2019 take 1 tablet by mouth once daily Magnesium Oxide 420 mg tablet Discontinued 420 mg PO DAILY December 04, 2018 10:05am April 20, 2019 2:49pm supplement Start: 06-05-2016 End: 10-27-2018 Magnesium Oxide 420 MG table t Discontinued 420 mg PO June 05, 2016 12:00am October 27, 2018 9:40am mometasone furoate 0.2 MG/ACTUAT Metered Dose Inhaler (1 source) Corticosteroid Start: 03-03-2022 take 1 dose by inhalation twice daily mometasone 200 mcg/inh HFA inhalation aerosol Dose = 2 puff(s), Inhalation, BID Start Date: 03/03/22 Status: Ordered nitroglycerin 0.4 mg/actuat mucosal spray (9 sources) Nitrate Vasodilator Start: 12-04-2018 Nitroglycerin Active 1 SPRAY SL every 3 to 5 minutes December 04, 2018 10:40am until response; do not exceed 3 doses per episode Start: 12-04-2018 Nitroglycerin 400 mcg/spray spray,non-aerosol Active 1 NMA SL every 3 to 5 minutes as needed for chest pain 12 December 04, 2018 12:00am until response; do not exceed 3 doses per episode 60 actuat olodaterol 0.0025 mg/actuat inhalation spray (1 source) beta2-Adrenergic Agonist Start: 03-03-2022 take 1 dose by inhalation once daily Striverdi Respimat 2.5 mcg/inh inhalation aerosol Dose = 2 puff(s), Inhalation, qDay Start Date: 03/03/22 Status: Ordered pantoprazole 40 mg delayed release oral tablet (9 sources) Proton Pump Inhibitor Start: 06-08-2019 take 1 tablet by mouth once daily Pantoprazole 40 mg tablet,delayed release (DR/EC) Active 40 mg PO DAILY 60 2 June 08, 2019 12:00am polyethylene glycol 3350 47995 mg powder for oral solution (1 source) Osmotic Laxative Start: 03-03-2022 take 17 doses by mouth once daily as needed for constipation MiraLax oral powder for reconstitution Dose : 17 gram(s) =, Oral, qDay, PRN Constipation Start Date: 03/03/22 Status: Ordered rosuvastatin calcium 40 mg oral tablet (9 sources) HMG-CoA Reductase Inhibitor Start: 06-05-2016 take 1 tablet by mouth at bedtime Rosuvastatin 40 MG tablet Active 40 mg PO AT BEDTIME June 05, 2016 12:00am cholesterol sodium chloride 0.111 meq/ml nasal spray (9 sources) Start: 06-05-2016 Sodium Chloride Active 2 spry NARES TWICE DAILY NEEDED June 05, 2016 9:50am Start: 06-05-2016 End: 08-05-2024 Sodium Chloride 1 SPRAY aero castillo,spray Discontinued 2 spry NARES TWICE DAILY NEEDED as needed for Nasal Dryness June 05, 2016 12:00am August 05, 2024 8:20am spacer (9 sources) Start: 06-04-2019 spacer Active 0 .ROUTE .MEDSUPPLY 1 June 04, 2019 2:23pm As directed Start: 06-04-2019 spacer Active 0 .ROUTE .MEDSUPPLY 1 0 June 04, 2019 12:00am As directed Start: 06-04-2019 spacer Active 0 .ROUTE .MEDSUPPLY 1 June 04, 2019 12:00am As directed vitamin b12 0.1 mg oral tablet (10 sources) Vitamin B12 Start: 03-03-2022 cyanocobalamin 100 mcg oral tablet Dose : 100 mcg = 1 tab(s), Oral, qDay Start Date: 03/03/22 Status: Ordered Start: 05-27-2021 take 1 tablet by frieda th once daily Cyanocobalamin (Vitamin B-12) 1,000 mcg Tablet Extended Release Active 1000 ug PO DAILY May 27, 2021 12:00am Vitamin D3 50 mcg (2000 intl units) oral capsule (1 source) Start: 03-03-2022 Vitamin D3 50 mcg (2000 intl units) oral capsule Dose : 50 mcg = 1 cap(s), Oral, qDay Start Date: 03/03/22 Status: Ordered Completed/Discontinued Medications Medication Drug Class(es) Dates Sig (Normalized) Sig (Original) amoxicillin 875 mg / clavulanate 125 mg oral tablet (20 sources) Penicillin-class Antibacterial Start: 05-08-2021 End: 05-22-2021 take 1 tablet by mouth every twelve hours Amoxicillin-Pot Clavulanate Discontinued 1 TABLET PO Q12H May 08, 2021 2:59pm May 22, 2021 2:07pm Start: 02-05-2021 End: 05-22-2021 Amoxicillin-Pot Clavulanate 875-125 mg tablet Discontinued 1 {tbl} PO Q12H 10 0 May 08, 2021 12:00am May 22, 2021 2:07pm apixaban 5 mg oral tablet (9 sources) Factor Xa Inhibitor Start: 05-27-2021 End: 08-05-2024 take 1 tablet by mouth twice daily Apixaban 5 mg Tablet Discontinued 5 mg PO TWICE A DAY May 27, 2021 12:00am August 05, 2024 8:18am aspirin 81 mg delayed release oral tablet (9 sources) Platelet Aggregation Inhibitor, Nonsteroidal Anti-inflammatory Drug Start: 06-05-2016 End: 08-05-2024 take 1 tablet by mouth once daily Aspirin 81 MG tablet,delayed release (DR/EC) Discontinued 81 mg PO DAILY June 05, 2016 12:00am August 05, 2024 8:17am [facility] benzonatate 100 mg oral capsule (9 sources) Non-narcotic Antitussive Start: 05-22-2021 End: 08-05-2024 Benzonatate 100 mg capsule Discontinued 100 mg PO 2 to 3 times per day as needed for cough 15 0 May 22, 2021 12:00am August 05, 2024 8:22am Budesonide (18 sources) Corticosteroid Start: 10-29-2018 End: 12-24-2018 Budesonide 180 mcg/actuation aerosol powdr breath activated Discontinued 2 NMA INHALATION TWICE A DAY 1 October 29, 2018 2:44pm December 24, 2018 10:10am SOB Start: 10-29-2018 End: 12-24-2018 Budesonide 180 mcg/actuation aerosol powdr breath activated Discontinued 2 NMA INHALATION TWICE A DAY 1 October 29, 2018 2:44pm December 24, 2018 10:10am Start: 10-29-2018 End: 12-24-2018 Budesonide Discontinued 2 IN H INHALATION TWICE A DAY 1 October 29, 2018 2:44pm December 24, 2018 10:10am Start: 06-05-2016 End: 10-29-2018 take 1 puff(s) by inhalation twice daily Budesonide Discontinued 2 PUFF INHALATION TWICE A DAY June 05, 2016 9:50am October 29, 2018 2:44pm Start: 06-05-2016 End: 10-29-2018 Budesonide 1 PUFF inhaler Discontinued 2 NMA INHALATION TWICE A DAY June 05, 2016 12:00am October 29, 2018 2:44pm SOB Start: 06-05-2016 End: 10-29-2018 Budesonide 1 PUFF inhaler Discontinued 2 NMA INHALATION TWICE A DAY June 05, 2016 12:00am October 29, 2018 2:44pm 120 actuat budesonide 0.16 mg/actuat / formoterol fumarate 0.0045 mg/actuat metered dose inhaler (9 sources) Corticosteroid, beta2-Adrenergic Agonist Start: 03-16-2019 End: 06-08-2019 take 1 puff(s) by inhalation twice daily Budesonide-Formoterol Discontinued 2 PUFF INHALATION TWICE A DAY March 16, 2019 3:49pm June 08, 2019 10:11am Start: 03-16-2019 End: 06-08-2019 Budesonide-Formoterol 160-4. 5MCG inhaler Discontinued 2 NMA INHALATION TWICE A DAY March 16, 2019 1:00am June 08, 2019 10:11am copd dextromethorphan hydrobromide 4 mg/ml / guaiFENesin 80 mg/ml / phenylephrine hydrochloride 2 mg/ml oral solution (18 sources) Uncompetitive M-fvcjve-S-aspartate Receptor Antagonist, Sigma-1 Agonist, alpha-1 Adrenergic Agonist Start: 03-16-2019 End: 06-08-2019 take 1 mL by mouth every six hours Uuazkcqbnycnk-Xk-Bkjtqttllza Discontinued 5 ML PO EVERY 6 HOURS March 16, 2019 3:49pm March 18, 2019 12:45pm Start: 03-16-2019 End: 06-08-2019 take 1 mL by mouth every six hours as needed for cough Lvsfhjgdfurkd-Hg-Rojtypeqrbf 473 ML liqu id Discontinued 5 mL PO EVERY 6 HOURS as needed for Cough March 16, 2019 1:00am March 18, 2019 12:45pm doxycycline hyclate 100 mg oral tablet (18 sources) Tetracycline-class Drug Start: 05-27-2021 End: 06-13-2021 take 1 tablet by mouth every twelve hours Doxycycline Hyclate 100 mg tablet Discontinued 100 mg PO Q12H 10 5 0 May 27, 2021 12:00am June 13, 2021 8:50am Start: 03-16-2019 End: 03-18-2019 take 1 capsule by mouth twice daily Doxycycline Hyclate 100 MG capsule Discontinued 100 mg PO TWICE A DAY March 16, 2019 1:00am March 18, 2019 12:14pm antibiotic 12 hr guaiFENesin 1200 mg extended release oral tablet (9 sources) Start: 10-27-2018 End: 11-18-2018 take 1 tablet by mouth twice daily Guaifenesin 1,200 MG tablet extended release 12hr Discontinued 1200 mg PO TWICE A DAY 14 0 October 27, 2018 12:00am November 18, 2018 8:36am hydrALAZINE hydrochloride 25 mg oral tablet (20 sources) Arteriolar Vasodilator Start: 04-20-2019 End: 08-04-2019 take 1 tablet by mouth three times daily Hydralazine 25 mg tablet Discontinued 25 mg PO THREE TIMES A DAY April 20, 2019 2:40pm August 04, 2019 1:14pm hypertension Hold if systolic blood pressure is less than 120 mmHg. Start: 10-27-2018 End: 04-20-2019 take 50 mg by mouth three times daily Hydralazine Discontinued 50 MG PO THREE TIMES A DAY November 18, 2018 8:37am April 20, 2019 2:49pm Hold if systolic blood pressure is less than 120 mmHg. Start: 10-27-2018 End: 04-20-2019 take 2 tablets by mouth three times daily Hydralazine 25 mg tablet Discontinued 50 mg PO THREE TIMES A DAY November 18, 2018 8:37am April 20, 2019 2:49pm hypertension Hold if systolic blood pressure is less than 120 mmHg. ibuprofen 400 mg oral tablet (9 sources) Nonsteroidal Anti-inflammatory Drug Start: 03-18-2019 End: 06-13-2021 take 1 tablet by mouth three times daily as needed for pain Ibuprofen 400 MG tablet Discontinued 400 mg PO 3 TIMES DAILY NEEDED as needed for Pain Score 1-10/10 20 0 March 18, 2019 12:14pm June 13, 2021 8:53am 3 ml insulin glargine 100 unt/ml pen injector (20 sources) Insulin Analog Start: 06-10-2019 End: 06-13-2021 Insulin Glargine 100 unit/mL (3 mL) insulin pen Discontinued 10 U SC DAILY June 10, 2019 10:56am June 13, 2021 8:50am blood sugar Start: 06-08-2019 End: 06-10-2019 Insulin Glargine 100 unit/mL (3 mL) insulin pen Discontinued 42 U SC DAILY June 08, 2019 10:13am June 10, 2019 10:59am blood sugar Start: 06-04-2019 End: 06-08-2019 Insulin Glargine 100 unit/mL (3 mL) insulin pen Discontinued 46 U SC DAILY June 04, 2019 1:41pm June 08, 2019 10:15am blood sugar Start: 12-04-2018 End: 06-04-2019 Insulin Glargine 100 unit/mL (3 mL) insulin pen Discontinued 42 U SC DAILY December 04, 2018 10:05am June 04, 2019 1:41pm blood sugar Start: 06-05-2016 End: 12-04-2018 Insulin Glargine Discontinue d 30 UNITS SC TWICE A DAY June 05, 2016 9:50am December 04, 2018 10:06am Start: 06-05-2016 End: 12-04-2018 Insulin Glargine 100 UNITS/M L insulin pen Discontinued 30 U SC TWICE A DAY June 05, 2016 12:00am December 04, 2018 10:06am blood sugar levoFLOXacin 500 mg oral tablet (9 sources) Quinolone Antimicrobial Start: 10-27-2018 End: 11-18-2018 take 1 tablet by mouth once daily Levofloxacin 500 MG tablet Discontinued 500 mg PO DAILY 2 0 October 27, 2018 12:00am November 18, 2018 8:36am 3 ml liraglutide 6 mg/ml pen injector (9 sources) GLP-1 Receptor Agonist Start: 12-24-2018 End: 06-13-2021 Liraglutide (Victoza 2-Sheldon) 0.6 mg/0.1 mL (18 mg/3 mL) pen injector Discontinued 1.2 mg SC DAILY December 24, 2018 1:00am June 13, 2021 8:50am diabetes lisinopril 5 mg oral tablet (9 sources) Angiotensin Converting Enzyme Inhibitor Start: 06-05-2016 End: 10-27-2018 take 1 tablet by mouth once daily Lisinopril (Zestril) 5 MG tablet Discontinued 5 mg PO DAILY June 05, 2016 12:00am October 27, 2018 9:38am blood pressure meclizine hydrochloride 25 mg oral tablet (9 sources) Antiemetic Start: 08-04-2019 End: 08-05-2024 take 1 tablet by mouth three times daily as needed for dizziness Meclizine 25 mg tablet Discontinued 25 mg PO THREE TIMES A DAY as needed for dizziness 60 0 August 04, 2019 12:00am August 05, 2024 8:21am metFORMIN hydrochloride 500 mg oral tablet (9 sources) Biguanide Start: 05-27-2021 End: 06-13-2021 take 1 tablet by mouth twice daily Metformin 500 mg tablet Discontinued 500 mg PO TWICE A DAY May 27, 2021 12:00am June 13, 2021 8:50am metoprolol tartrate 25 mg oral tablet (9 sources) beta-Adrenergic Suzanne Start: 06-05-2016 End: 10-27-2018 take 1 tablet by mouth twice daily Metoprolol Tartrate 25 MG tablet Discontinued 25 mg PO TWICE A DAY June 05, 2016 12:00am October 27, 2018 9:35am heart rate and blood pres montelukast 10 mg oral tablet (9 sources) Leukotriene Receptor Antagonist Start: 06-05-2016 End: 08-05-2024 take 1 tablet by mouth at bedtime Montelukast 10 MG tablet Discontinued 10 mg PO AT BEDTIME June 05, 2016 12:00am August 05, 2024 8:21am allergies nystatin [id number] unt/ml oral suspension (9 sources) Polyene Antifungal Start: 11-18-2018 End: 12-04-2018 Nystatin Discontinued 5 ML MUCOUS MEM THREE TIMES A DAY 250 November 18, 2018 8:57am December 04, 2018 10:04am swish and swallow 5 cc three times per day for 10 days Start: 11-18-2018 End: 12-04-2018 Nystatin 100,000 unit/mL [employer] Discontinued 5 mL MUCOUS MEM THREE TIMES A DAY 250 1 November 18, 2018 12:00am December 04, 2018 10:04am swish and swallow 5 cc three times per day for 10 days predniSONE 10 mg oral tablet (20 sources) Start: 06-01-2021 End: 08-05-2024 Prednisone 10 MG tablet Discontinued 10 mg PO DAILY 63 0 June 01, 2021 12:00am August 05, 2024 8:23am 60 mg p.o. daily for 3 days, 50 mg p.o. daily for 3 days, 40 mg p.o. daily for 3 days, 30 mg p.o. daily for 3 days, 20 mg p.o. daily for 3 days, 10 mg p.o. daily for 3 days. Start: 05-27-2021 take 50 mg by mouth once daily Prednisone Active 50 MG PO DAILY 25 5 May 27, 2021 3:57pm Start: 05-27-2021 End: 08-05-2024 take 5 tablets by mouth once daily Prednisone 10 mg tablet Discontinued 50 mg PO DAILY 25 5 May 27, 2021 12:00am August 05, 2024 8:22am Start: 03-16-2019 End: 03-18-2019 take 40 mg by mouth once daily Prednisone Discontinued 0 EACH PO DAILY March 16, 2019 3:49pm March 18, 2019 12:13pm 50 MG PO DAILY FOR 3 DAYS.(STARTED 03/13/19) 40 MG PO DAILY FOR 3 DAYS 30 MG PO DAILY FOR 3 DAYS 20 MG PO DAILY FOR 3 DAYS 10 MG PO DAILY FOR 3 DAYS. Start: 03-16-2019 End: 03-18-2019 take 4 tablets by mouth once daily Prednisone 10 MG tablet Discontinued 0 NMA PO DAILY March 16, 2019 1:00am March 18, 2019 12:13pm breathing/steroid 50 MG PO DAILY FOR 3 DAYS.(STARTED 03/13/19) 40 MG PO DAILY FOR 3 DAYS 30 MG PO DAILY FOR 3 DAYS 20 MG PO DAILY FOR 3 DAYS 10 MG PO DAILY FOR 3 DAYS. Please contact the information source for Taper Schedule details. Start: 10-27-2018 End: 11-18-2018 take 30 mg by mouth once daily Prednisone Discontinued 10 MG PO DAILY October 27, 2018 9:38am November 18, 2018 8:38am 40 mg aily for 3 days 30 mg daily for 3 days 20 mg daily for 3 days 10 mg daily 3 days Start: 10-27-2018 End: 11-18-2018 take 3 tablets by mouth once daily Prednisone 10 MG tablet Discontinued 10 mg PO DAILY October 27, 2018 12:00am November 18, 2018 8:38am 40 mg aily for 3 days 30 mg daily for 3 days 20 mg daily for 3 days 10 mg daily 3 days Tiotropium Shirley (20 sources) Anticholinergic Start: 06-10-2019 End: 08-05-2024 Tiotropium Shirley 2.5 mcg/actuation mist Discontinued 2 NMA INHALATION TWICE A DAY June 10, 2019 10:59am August 05, 2024 8:20am copd Start: 06-10-2019 End: 08-05-2024 Tiotropium Shirley 2.5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 Degenerative changes of the spine. Median sternotomy wires are present. OTHER: Surgical clips in right upper quadrant. CONCLUSION: No acute disease. Dictated by: Teresa Garcia MD on 04/23/2024 at 12:10 Approved by: Teresa Garcia MD on 04/23/2024 at 12:14 [facility] ED MED ADMINISTRATION DETAIL on 04-23-2024 ED MED ADMINISTRATION DETAIL Signals Intelligence Analyst Medication Administration Record [address] [address] [id number] 04/23/2024 Patient: BRYN AYON Sex: Male : 1945 Age: 78y MEASUREMENTS: Wt: 80.7 kg, Ht/Hector: 68.0 in, BMI: 27.06 ALLERGIES: No known drug allergies Medication Ordered Medication Administration Date/Time 1 of 1 [facility] ED NURSES CLINICAL NOTEon ED NURSES CLINICAL NOTE Nurse Narrative Nurse Clinical Narrative [address] [address] [phone] 04/23/2024 Patient: BRYN AYON Sex: Male : 1945 Age: 78y Primary Insurance: MEDICARE OUTPATIENT Policy Number: [id number] Subscriber: Other Secondary Insurance: BBE OUTPATIENT Policy Number: [id number] Subscriber: Other Disposition: Discharge Disposition Decision Time: 12:44 04/23/2024 Departure Time: 13:02 04/23/2024 TRIAGE Arrived by private vehicle. Historian: (patient). Accompanied by spouse. Triage time: 11:30 04/23/2024. Acuity: LEVEL 3. Chief Complaint: SHORTNESS OF BREATH. This started yesterday. ( pt c/o worsening SOB over the past day. dx with PNA and influenza A at urgent care on 04/21.). The patient has had a cough, wheezing and difficulty breathing. SEPSIS SCREEN: NEGATIVE. SIRS criteria negative. No possible sources of infection. -- 11:50 04/23/24 MAYO Carson R.N. 11:49 04/23/24. BP: 147/63 MAP: 91. HR: 60. RR: 18. O2 saturation: 92% Temperature: 97.6 F. Pain level now 0/10. -- 11:49 04/23/24 MAYO Carson R.N. Measurements: 11:49 04/23/24 Wt: 80.7 kg, Ht/Hector: 68.0 in, BMI: 27.06 -- 11:49 04/23/24 MAYO Carson R.N. Medications: 1 of 4 Nurse Narrative [facility], meds obtained from [facility] care visit -- 11:52 04/23/24 MAYO Carson R.N. Zithromax 250 mg tablet: 250 mg once a day . (first dose on 04/21) -- 11:56 04/23/24 MAYO Carson R.N. Tamiflu 75 mg capsule: 75 mg twice a day . -- 11:56 04/23/24 MAYO Carson R.N. Lantus U-100 Insulin 100 unit/mL subcutaneous solution: 6 units . (unknown freqency) -- 11:59 04/23/24 MAYO Carson R.N. Victoza 2-Sheldon 0.6 mg/0.1 mL (18 mg/3 mL) subcutaneous pen injector: 1 . (unknown dose/ frequency) -- 12:01 04/23/24 MAYO Carson R.N.Correction -- 12:30 04/23/24 EST Kim Wilber, R.Ph. Symbicort 160 mcg-4.5 mcg/actuation HFA aerosol inhaler: 1 inhalation . (unknown frequency) -- 12:04/23/24 MAYO Carson R.N.Correction -- 12:04/23/24 Noe KennedyPhGuillaume Lantus U-100 Insulin 100 unit/mL subcutaneous solution: 6 units once a day . (unknown freqency) -- 12:04/23/24 Noe KennedyPh. Vitamin D3 50 mcg (2,000 unit) tablet: once a day . -- 12:04/23/24 Melita Kennedy.Ph. amiodarone 200 mg tablet: once a day . -- 12:04/23/24 Noe eKnnedyPh. aspirin 81 mg tablet,delayed release: once a day . -- 12:04/23/24 Melita Kennedy.Ph. Jardiance 25 mg tablet: 12.5 mg once a day . -- 12:04/23/24 Melita Kennedy.Ph. losartan 25 mg tablet: once a day . -- 12:04/23/24 Melita Kennedy.Ph. Ozempic 2 mg/dose (8 mg/3 mL) subcutaneous pen injector: weekly . -- 12:04/23/24 Melita Kennedy.Ph. Miralax 17 gram/dose oral powder: once a day as needed. -- 12:04/23/24 Melita Kennedy.Ph. Spiriva Respimat 2.5 mcg/actuation solution for inhalation: 2 inhalations once a day . -- 12:04/23/24 Melita Kennedy.Ph. albuterol sulf 90 mcg/actuation breath activated powder inhaler,sensor: 2 four times a day as needed. -- 12:04/23/24 Noe KennedyPh. furosemide 20 mg tablet: once a day as needed. (FOR LEG SWELLING, 3LB WEIGHT GAIN) -- 12:35 04/23/24 Melita Kennedy.Ph. ezetimibe 10 mg tablet: once a day . -- 12:35 04/23/24 EST Noe EscalantePhGuillaume MAGNESIUM OXIDE 420MG: once a day . -- 12:37 04/23/24 EST Noe EscalantePh. clopidogreL 75 mg tablet: once a day . -- 12:37 04/23/24 EST Noe EscalantePh. atorvastatin 20 mg tablet: at bedtime . -- 12:38 04/23/24 EST Noe EscalantePh. isosorbide mononitrate ER 30 mg tablet,extended release 24 hr: once a day . -- 12:39 04/23/24 Noe KennedyPh. Nitrostat 0.4 mg sublingual tablet: as needed. -- 12:39 04/23/24 EST Noe EscalantePh. glucose 4 gram chewable tablet: as needed. -- 12:40 04/23/24 EST Noe EscalantePh. albuterol sulfate 2.5 mg/3 mL (0.083 %) solution for nebulization: Stopped 04/23/2024. -- 12:43 04/23/24 EST Feliz Campa D.O. Tamiflu 75 mg capsule: 75 mg twice a day . (START 04-21-24) -- 12:43 04/23/24 EST Kim Merino R.Ph. Allergies: no known drug allergies -- 11:44 04/23/24 EST Des Carson R.N. 2 of 4 Nurse Narrative Problems: Diabetes Mellitus -- 11:45 04/23/24 MAYO Carson R.N. Chronic kidney disease stage 3 -- 11:45 04/23/24 MAYO Carson R.N. Coronary artery bypass grafts x 3 (procedure): Active -- 11:45 04/23/24 MAYO Carson R.N. Coronary Artery Disease -- 11:45 04/23/24 MAYO Carson R.N. Essential Hypertension -- 11:45 04/23/24 MAYO Carson R.N. COPD - Chronic Obstructive Pulmonary Disease -- 11:45 04/23/24 MAYO Carson R.N. Congestive Heart Failure -- 11:45 04/23/24 MAYO Carson R.N. Atrial Fibrillation -- 11:45 04/23/24 MAYO Carson R.N. ADDITIONAL SURGERIES: Catheterization of left heart -- 11:45 04/23/24 MAYO Carson R.N. Implantation (more content not included)... Normal [facility] ED ORDER SHEET (CPOE ONLY)on 04-23-2024 ED ORDER SHEET (CPOE ONLY) Order Sheet Order Sheet [address] [address] [id number] 04/23/2024 Patient: BRYN AYON Sex: Male : 1945 Age: 78y MEASUREMENTS: Wt: 80.7 kg, Ht/Hector: 68.0 in, BMI: 27.06 ALLERGIES: No known drug allergies MEDICATION/IV/DRIP/FL UID ORDERS Order Description Priority Entered Acknowledged Completed LAB ORDERS Order Description Priority Entered Acknowledged Collected Completed DIAGNOSTIC STUDY ORDERS Order Description Priority Entered Acknowledged Completed Chest 2V Stat Stat 11:40 04/23/2024 11:48 12:07 Feliz Campa, 04/23/2024 04/23/2024 Laura Castaneda, Bernard ClarkNGuillaume Reason for Study: Cough STAFF ORDERS Order Description Priority Entered Acknowledged Collected Completed [Electronically signed by Feliz Campa D.O. (04/23/2024 12:45 EST)] 1 of 1 [facility] ED PHYSICIAN CLINICAL REPORT on 04-23-2024 ED PHYSICIAN CLINICAL REPORT Narrative Physician Clinical Narrative [address] [address] [id number] 04/23/2024 Patient: BRYN AYON Sex: Male : 1945 Age: 78y Primary Insurance: MEDICARE OUTPATIENT Policy Number: [id number] Subscriber: Other Secondary Insurance: BBE OUTPATIENT Policy Number: [id number] Subscriber: Other Disposition: Discharge Disposition Decision Time: 12:44 04/23/2024 Measurements Wt: 80.7 kg, Ht/Hector: 68.0 in, BMI: 27.06 Initial Vital Sign Measured Time BP MAP HR RR O2Sat ETCO2 Temp Pain GCS RTS 11:49 04/23/2024 147/63 91 60 18 92% 97.6 F 0 Time Seen: 11:30 04/23/2024. Arrived- By private vehicle. Historian- patient. Independent historian- family. HISTORY OF PRESENT ILLNESS Chief Complaint: WHEEZING. This started 3 days ago and is still present. (Patient is seen at urgent care 2 days ago and diagnosed with influenza a as well as pneumonia. Started on azithromycin and Tamiflu. History of COPD. States it is wheezing and cough is worsened. Shortness of breath. States that he ran out of his nebulizer solution. Denies any fever, chills, nausea, vomiting, abdominal pain. Does admit to sharp chest pain following coughing.). REVIEW OF SYSTEMS CONSTITUTIONAL: No fever or chills. GI: No nausea, diarrhea or vomiting. 1 of 5 Narrative PAST HISTORY Atrial Fibrillation Chronic kidney disease stage 3 Congestive Heart Failure COPD - Chronic Obstructive Pulmonary Disease Coronary artery bypass grafts x 3 (procedure): [Active] Coronary Artery Disease Diabetes Mellitus Essential Hypertension Surgeries: Catheterization of left heart Cholecystectomy Coronary artery bypass grafts x 3 Implantation of automatic cardiac defibrillator Pacemaker watchman device Medications: albuterol sulf 90 mcg/actuation breath activated powder inhaler,sensor: 2 four times a day as needed. albuterol sulfate 2.5 mg/3 mL (0.083 %) solution for nebulization: Stopped 04/23/2024. amiodarone 200 mg tablet: once a day . aspirin 81 mg tablet,delayed release: once a day . atorvastatin 20 mg tablet: at bedtime . clopidogreL 75 mg tablet: once a day . ezetimibe 10 mg tablet: once a day . furosemide 20 mg tablet: once a day as needed. (FOR LEG SWELLING, 3LB WEIGHT GAIN) glucose 4 gram chewable tablet: as needed. isosorbide mononitrate ER 30 mg tablet,extended release 24 hr: once a day . Jardiance 25 mg tablet: 12.5 mg once a day . Lantus U-100 Insulin 100 unit/mL subcutaneous solution: 6 units once a day . (unknown freqency) losartan 25 mg tablet: once a day . MAGNESIUM OXIDE 420MG: once a day . Miralax 17 gram/dose oral powder: once a day as needed. Nitrostat 0.4 mg sublingual tablet: as needed. Ozempic 2 mg/dose (8 mg/3 mL) subcutaneous pen injector: weekly . 2 of 5 Narrative Spiriva Respimat 2.5 mcg/actuation solution for inhalation: 2 inhalations once a day . Tamiflu 75 mg capsule: 75 mg twice a day . (START 04-21-24) [facility]s obtained [facility] visit Vitamin D3 50 mcg (2,000 unit) tablet: once a day . Zithromax 250 mg tablet: 250 mg once a day . (first dose on 04/21) Allergies: no known drug allergies SOCIAL HISTORY No alcohol use or drug use. ADDITIONAL NOTES The nursing notes have been reviewed. PHYSICAL EXAM Vital Signs: Have been reviewed. Appearance: Alert. No acute distress. ENT: Pharynx normal. Uvula midline. Neck: Normal inspection. Neck supple. CVS: Normal heart rate and rhythm. Heart sounds normal. Pulses normal. Respiratory: No respiratory distress. Expiratory bilateral wheezes posteriorly. Abdomen: Nontender. Skin: Skin warm and dry. Normal skin color. Extremities: No lower extremity edema. LABS, X-RAYS, AND EKG Diagnostic Study Tests: CHEST 2 VIEWS Final EXAM Date: 04/23/2024 12:14:00 EST MsgRcvd: 04/23/2024 12:18 [place] [address] Narrative Patient: BRYN AYON Phone#: : 1945 Age: 78 Gender: M Pt. Type: ER Account: [id number] Location: 052 Ordering: FELIZ CAMPA Exam Date: 04/23/2024/11:51 Family Phys: Charge Code: [id number] Physician: Charlton Order #: [id number] Dose#: PROCEDURE: X-RAY CHEST 2 VIEWS COMPARISON: [facility], XR, CHEST 1 VIEW, 01/08/2024, 17:23. [facility], XR, CHEST 1 VIEW, 02/10/2024, 13:49. INDICATIONS: Cough. FINDINGS: LUNGS: Normal. No significant pulmonary parenchymal abnormalities. VASCULATURE: Normal. Unremarkable pulmonary vasculature. CARDIAC: Left chest wall cardiac device with single lead. Aortic valve stent present. MEDIASTINUM: Mediastinal surgical clips present. Aortic arch calcifications. PLEURA: Normal. No effusion or pleural thickening. BONES: Degenerative changes o (more content not included)... Normal [facility] ED SUPER BILLon 04-23-2024 ED SUPER BILL [place] [id number] [facility] [place] [address] [phone] 04/23/2024 Patient: BRYN AYON Sex: Male : 1945 Age: 78y Item Professional Category Description Facility Code Code Quantity Fee Total Nurse/E/M EMERGENCY 129384 1 $0.00 $0.00 DEPARTMENT VISIT MODERATE SEVERITY (74783-96) Grand Total $0.00 Providers Feliz Campa D.O. Chief Complaint WHEEZING. Principal Diagnosis COPD. ICD-10 Codes [address] of [address] [facility] J44.9: Chronic obstructive pulmonary disease, unspecified 2 of 2 Normal [facility] ED VISIT SUMMARYon ED VISIT SUMMARY Visit Overview Visit Overview [address] [place] [address] [phone] 04/23/2024 Patient: BRYN AYON Sex: Male : 1945 Age: 78y 04/23/2024 02:28 PM EST ED Arrival:11:21 04/23/2024 EST Status: Recent Travel:no Language:eng Adv Directive:Unknown Isolation Status: Ethnicity:N Fall Risk: Infectious Disease Exposure:no Measurements:5'8 / 172.7 Self-Harm Status:risk Sepsis Screen:negative cm 178.0 lb / 80.7 kg Chief Complaint:SHORTNESS OF BREATH and (pt c/o worsening SOB over the past day. dx with PNA and influenza A at urgent care on 04/21. ) ALLERGIES No Known Drug Allergies HOME MEDICATIONS albuterol sulf 90 mcg/actuation breath activated powder inhaler,sensor: 2 four times a day as needed. albuterol sulfate 2.5 mg/3 mL (0.083 %) solution for nebulization: Stopped 04/23/2024. amiodarone 200 mg tablet: once a day . aspirin 81 mg tablet,delayed release: once a day . 1 of 4 Visit Overview atorvastatin 20 mg tablet: at bedtime . clopidogreL 75 mg tablet: once a day . ezetimibe 10 mg tablet: once a day . furosemide 20 mg tablet: once a day as needed. (FOR LEG SWELLING, 3LB WEIGHT GAIN) glucose 4 gram chewable tablet: as needed. isosorbide mononitrate ER 30 mg tablet,extended release 24 hr: once a day . Jardiance 25 mg tablet: 12.5 mg once a day . Lantus U-100 Insulin 100 unit/mL subcutaneous solution: 6 units once a day . (unknown freqency) losartan 25 mg tablet: once a day . MAGNESIUM OXIDE 420MG: once a day . Miralax 17 gram/dose oral powder: once a day as needed. Nitrostat 0.4 mg sublingual tablet: as needed. Ozempic 2 mg/dose (8 mg/3 mL) subcutaneous pen injector: weekly . Spiriva Respimat 2.5 mcg/actuation solution for inhalation: 2 inhalations once a day . Tamiflu 75 mg capsule: 75 mg twice a day . (START 04-21-24) [facility] obtained [facility] Vitamin D3 50 mcg (2,000 unit) tablet: once a day . Zithromax 250 mg tablet: 250 mg once a day . (first dose on 04/21) PAST MEDICAL HISTORY / PROBLEMS Atrial Fibrillation Chronic kidney disease stage 3 Congestive Heart Failure COPD - Chronic Obstructive Pulmonary Disease Coronary artery bypass grafts x 3 (procedure): Active Coronary Artery Disease Diabetes Mellitus Essential Hypertension PAST SURGICAL HISTORY Catheterization of left heart Cholecystectomy Coronary artery bypass grafts x 3 Implantation of automatic cardiac defibrillator Pacemaker watchman device 2 of 4 Visit Overview SOCIAL HISTORY Smoking status: No Alcohol use: No Drug use: No ED COURSE MEDICATIONS GIVEN IN EMERGENCY DEPARTMENT IV SITE INFORMATION INTAKE OUTPUT REASSESMENT (most recent) 12:04 04/23/24. Ambulatory to room. GENERAL / NEURO / PSYCH: Alert. Oriented X 4. Appears in no acute distress. HEENT: Mucous membranes are pink. RESPIRATORY: No respiratory distress. Respirations not labored. Chest nontender. Wheezing present. Crackles present. SKIN: Skin is warm and dry. Normal skin turgor. VITAL SIGNS First Vitals Last Vitals Temp 11:49 04/23/24 97.6 F Temp 12:45 04/23/24 97.6 F BP 11:49 04/23/24 147/63 BP 12:45 04/23/24 104/54 HR 11:49 04/23/24 60 HR 12:45 04/23/24 89 RR 11:49 04/23/24 18 RR 12:45 04/23/24 18 O2 Sat 11:49 04/23/24 92% O2 Sat 12:45 04/23/24 97% Pain 11:49 04/23/24 0 Pain 12:45 04/23/24 0 ETCO2 11:49 04/23/24 ETCO2 12:45 04/23/24 GCS 11:49 04/23/24 GCS 12:45 04/23/24 RTS 11:49 04/23/24 RTS 12:45 04/23/24 PROCEDURES NURSING INTERVENTIONS LABS / STUDIES 3 of 4 Visit Overview LABS / STUDIES ORDERED Chest 2V CLINICAL IMPRESSION COPD 4 of 4 Normal [facility] ED VITALS FLOW SHEETon 04-23 ED VITALS FLOW SHEET Vitals Vital Sign Flow Sheet [address] [address] [id number] 04/23/2024 [id number] Sex[facility] Male : 1945 Age: 78y Measurements Wt: 80.7 kg, Ht/Hector: 68.0 in, BMI: 27.06 Measured Time BP MAP HR RR O2Sat ETCO2 Temp Pain GCS RTS 12:45 04/23/2024 104/54 71 89 18 97% 97.6 F 0 11:49 04/23/2024 147/63 91 60 18 92% 97.6 F 0 1 of 1 Normal [facility] CBC + DIFFon 02-10-2024 Baso # 0.03 x10EE3/UL Normal 0.00 - 0.10 [facility] Comment on above: Performed By: #### 2 89523 #### [facility],[address] [place] [address] Basophils/100 WBC (Bld) 0.4 % Normal 0.0 - 2.0 [facility] Comment on above: Performed By: #### 2 27588 #### [facility],[address] [place] [address] CBC + DIFF Normal [facility] Comment on above: Result Comment: CBC- COMPLETE BLOOD COUNT Performed By: #### 2 50125 #### [facility],[address] [place] [address] EO # 0.11 x10EE3/UL Normal 0.00 - 0.50 [facility] Comment on above: Performed By: #### 2 65785 #### [facility],[address] [place] [address] Eosinophils/100 WBC (Bld) 1.4 % Normal 0.0 - 7.0 [facility] Comment on above: Performed By: #### 2 33777 #### [facility],[address] [place] [address] Erythrocyte distribution width (RBC) [Ratio] 14.2 % Normal 12.0 - 15.6 [facility] Comment on above: Performed By: #### 2 39351 #### [place] [address] Hematocrit (Bld) [Volume fraction] 47.9 % Normal 40.0 - 52.0 [facility] Comment on above: Performed By: #### 2 59323 #### [facility],[address] [place] [address] Hemoglobin (Bld) [Mass/Vol] 16.2 g/dL Normal 13.0 - 17.5 [facility] Comment on above: Performed By: #### 2 38880 #### [facility],[address] [place] [address] Lymph # 1.38 x10EE3/UL Normal 0.80 - 2.80 [facility] Comment on above: Performed By: #### 2 47189 #### [facility],[address] [place] [address] Lymphocytes/100 WBC (Bld) 16.9 % Low 20.0 - 45.0 [facility] Comment on above: Performed By: #### 2 77842 #### [facility],[address] [place] [address] MANUAL DIFF N/A Normal [facility] Comment on above: Performed By: #### 2 48611 #### [facility],[address] [place] [address] MCH (RBC) [Entitic mass] 31 pg Normal 27 - 33 [facility] Comment on above: Performed By: #### 2 10165 #### [facility],[address] [place] [address] MCHC 34 X10 3 Normal 32 - 36 [facility] Comment on above: Performed By: #### 2 93069 #### [facility],[address] [place] [address] MCV (RBC) [Entitic vol] 92 fL Normal 81 - 98 [facility] Comment on above: Performed By: #### 2 47219 #### [facility],[address] [place] [address] [place] # 0.73 x10EE3/UL Normal 0.20 - 1.00 [facility] Comment on above: Performed By: #### 2 02288 #### [facility],[address] [place] [address] MONOS % 9.0 % Normal 0.0 - 10.0 [facility] Comment on above: Performed By: #### 2 95914 #### [facility],[address] [place], [place] [id number] Morphology Alvaro (Bld) [Interp] REVIEWED Normal [facility] Comment on above: Performed By: #### 2 80821 #### [facility],[address] [place] [address] Neut # 5.90 x10EE3/UL Normal 1.50 - 7.10 [facility] Comment on above: Performed By: #### 2 27625 #### [facility],[address] [place] [address] Neutrophils/100 WBC (Bld) 72.3 % Normal 46.0 - 76.0 [facility] Comment on above: Performed By: #### 2 27910 #### [facility],[address] [place] [address] PLATELET 260 x10EE3/UL Normal 150 - 450 [facility] Comment on above: Performed By: #### 2 16543 #### [facility],[address] [place] [address] Platelet mean volume (Bld) [Entitic vol] 6.7 fL Normal 6.4 - 10.5 [facility] Comment on above: Result Comment: AUTO MATED DIFFERENTIAL Performed By: #### 2 55147 #### [facility],[address] [place] [address]442 RBC 5.24 x 10EE6/UL Normal 4.50 - 6.00 [facility] Comment on above: Performed By: #### 2 28821 #### [facility],[address] [place] [address]016 WBC 8.2 x 10EE3/UL Normal 4.5 - 10.8 [facility] Comment on above: Performed By: #### 2 93345 #### [facility],[address] [place] [address] CHEST 1 VIEWon 02-10-2024 CHEST 1 VIEW [place] [address] Patient: BRYN AYON Phone#: : 1945 Age: 78 Gender: M Pt. Type: ER Account: [id number] Location: 052 Ordering: FELIZ LOKESH Exam Date: 02/10/2024/13:49 Family Phys: Charge Code: [id number] Physician: Charlton Order #: [id number] Dose#: PROCEDURE: X-RAY CHEST 1 VIEW COMPARISON: [facility], , CHEST 1 VIEW, 01/08/2024, 17:23. INDICATIONS: Diaphoresis. FINDINGS: LUNGS: Normal. No significant pulmonary parenchymal abnormalities. VASCULATURE: Normal. Unremarkable pulmonary vasculature. CARDIAC: Normal. No cardiac silhouette abnormality or cardiomegaly. MEDIASTINUM: Normal. No visible mass or adenopathy. PLEURA: Normal. No effusion or pleural thickening. BONES: Normal. No fracture or visible bony lesion. OTHER: Cardiac pacing device is present. Sternotomy sutures are present. CONCLUSION: No acute disease. No significant change has occurred. Dictated by: Cleopatra Lujan MD on 02/10/2024 at 14:18 Approved by: Cleopatra Lujan MD on 02/10/2024 at 14:20 Normal [facility] CMP with eGFRon 02-10-2024 AGE 78 years Normal [facility] Comment on above: Performed By: #### 2 10053 ####[facility],[address] [place] [address] Albumin [Mass/Vol] 3.9 g/dL Normal 3.4 - 5.0 [facility] Comment on above: Performed By: #### 2 79764 ####[facility],[address] [place] [address] Albumin/Globulin [Mass ratio] 1.1 {ratio} Normal 0.9 - 1.6 [facility] Comment on above: Performed By: #### 2 71424 ####[facility],[address] [place] [address] ALK PHOS 113 U/L Normal 46 - 116 [facility] Comment on above: Performed By: #### 2 72165 ####[facility],[address] [place] [address] 36300 ALT [Catalytic activity/Vol] 34 U/L Normal 16 - 63 [facility] Comment on above: Performed By: #### 2 19590 ####[facility],[address] [place] [address]571 Anion gap [Moles/Vol] 13 mmol/L Normal 10 - 20 [facility] Comment on above: Performed By: #### 2 02148 ####[facility],[address] [place] [address]394 AST [Catalytic activity/Vol] 29 U/L Normal 15 - 37 [facility] Comment on above: Performed By: #### 2 27872 ####[facility],[address] [place] [address]49 B/C RATIO 12 ratio Normal 0 - 30 [facility] Comment on above: Performed By: #### 2 15814 ####[facility],[address] [place] [address] 12893 Bilirubin [Mass/Vol] 1.3 mg/dL High 0.2 - 1.0 [facility] Comment on above: Performed By: #### 2 56735 ####[facility],[address] [place] [address]131 Calcium [Mass/Vol] 9.5 mg/dL Normal 8.5 - 10.1 [facility] Comment on above: Performed By: #### 2 80797 ####[facility],[address] [place] [address] 58334 Chloride [Moles/Vol] 101 mmol/L Normal 98 - 107 [facility] Comment on above: Performed By: #### 2 24191 ####[facility],[address] [place] [address]382 CMP with eGFR Normal [facility] Comment on above: Result Comment: COMP REHENSIVE METABOLIC PANEL Performed By: #### 2 94614 ####[facility],[address] [place] [address]016 CO2 [Moles/Vol] 31.4 mmol/L Normal 21.0 - 32.0 [facility] Comment on above: Performed By: #### 2 75902 ####[facility],[address] [place] [address]169 Creatinine [Mass/Vol] 2.49 mg/dL High 0.70 - 1.30 [facility] [facility] Comment on above: Performed By: #### 2 [id number] ####[facility],[address] [place] [address] 99097 eGFR 25 ML/MINUTE Low 60 - 999 [facility] Comment on above: Performed By: #### 2 [id number] ####[facility],[address] [place] [address] 81668 eGFR(AA) 30 ML/MINUTE Low 60 - 999 [facility] Comment on above: Result Comment: ACCO RDING TO THE NATIONAL KIDNEY DISEASE EDUCATION PROGRAM(NKDE), A NORMAL eGFR IS A VALUE GREATER THAN OR EQUAL TO 60 ML/MIN/1.73 SQ METERS. CHRONIC KIDNEY DISEASE: <60mL/MIN/1.73 SQ METERS KIDNEY FAILURE: <15mL/MIN/1.73 SQ METERS THIS TEST SHOULD ONLY BE USED FOR PATIENTS 18 YEARS OF AGE AND OLDER. Performed By: #### 2 [id number] ####[facility],[address] [place] [address] 21643 Globulin (S) [Mass/Vol] 3.5 g/dL Normal 1.5 - 3.8 [facility] Comment on above: Performed By: #### 2 [id number] ####[facility],[address] [place] [address] 48358 Glucose [Mass/Vol] 166 mg/dL High 74 - 106 [facility] Comment on above: Performed By: #### 2 [id number] ####[facility],[address] [place] [address] 18467 Potassium [Moles/Vol] 5.0 mmol/L Normal 3.5 - 5.1 [facility] Comment on above: Performed By: #### 2 [id number] ####[facility],[address] [place] [address] 75893 Protein [Mass/Vol] 7.4 g/dL Normal 6.4 - 8.2 [facility] Comment on above: Performed By: #### 2 [id number] ####[facility],[address] [place] [address] 26302 Sodium [Moles/Vol] 140 mmol/L Normal 136 - 145 [facility] Comment on above: Performed By: #### 2 [id number] ####[facility],[address] [place] [address] 01524 Urea nitrogen [Mass/Vol] 29 mg/dL High 7 - 18 [facility] Comment on above: Performed By: #### 2 [id number] ####[facility],[address] [place], [place] [id number] CORONAVIRUS (SARS) ANTIGEN T Mj 02-10-2024 EXTERNAL QC DONE? YES Normal [facility] Comment on above: Performed By: #### 2 [id number] #### [facility],[address] [place] [address] INTERNAL CONTROL PASS Normal [facility] Comment on above: Performed By: #### 2 [id number] #### [facility],[address] [place] [address] 65172 SARS ANTIGEN Negative Normal NORMAL: NEGATIVE [facility] Comment on above: Performed By: #### 2 [id number] #### [facility],[address] [place] [address] 59210 SEND TO ? NO Normal [facility] Comment on above: Result Comment: SARS -CoV-2 THIS TEST IS BEING USED UNDER THE FDA EUA PROCEDURE. THIS ASSAY HAS BEEN VALIDATED AT [facility] FOR USE WITH NASAL AND NASOPHARYNGEAL SWAB SPECIMENS. INTERPRETIVE DATA TEST RESULTS SHOULD ALWAYS BE CONSIDERED IN THE CONTEXT OF CLINICAL OBSERVATIONS AND EPIDEMIOLOGICAL DATA IN MAKING FINAL DIAGNOSIS AND PATIENT MANAGEMENT DECISIONS. PATIENT MANAGEMENT SHOULD FOLLOW CURRENT CDC GUIDELINES. THE MIGUELITO SARS ANTIGEN ANDREAS DOES NOT DIFFERENTIATE BETWEEN SARS-CoV & SARS-CoV-2. A POSITIVE TEST RESULT INDICATES THE PRESENCE OF SARS-CoV-2 NUCLEOCAPSID PROTEIN ANTIGEN, AND THE PATIENT IS INFECTED WITH THE VIRUS AND PRESUMED TO BE CONTAGIOUS. A NEGATIVE TEST RESULT FOR THIS TEST MEANS THAT SARS-CoV-2 NUCLEOCAPSID PROTEIN ANTIGEN WAS NOT PRESENT IN THE SPECIMEN ABOVE THE LIMIT OF DETECTION. HOWEVER, A NEGATIVE RESULT DOES NOT RULE OUT COVID-19 AND SHOULD NOT BE USED THE SOLE BASIS FOR TREATMENT OR PATIENT MANAGEMENT DECISIONS. A NEGATIVE RESULT DOES NOT EXCLUDE THE POSSIBILITY OF COVID-19. NEGATIVE RESULTS, FROM PATIENTS WITH SYMPTOM ONSET BEYOND FIVE DAYS, SHOULD BE TREATED PRESUMPTIVE AND CONFIRMATION WITH A MOLECULAR ASSAY, IF NECESSARY, FOR PATIENT MANAGEMENT, MAY BE PERFORMED. WHEN DIAGNOSTIC TESTING IS NEGATIVE, THE POSSIBLILTY OF A FALSE NEGATIVE RESULT SHOULD BE CONSIDERED IN THE CONTEXT OF A PATIENT'S RECENT EXPOSURES AND THE PRESENCE OF CLINICAL SIGNS AND SYMPTOMS CONSISTENT WITH COVID-19. THE POSSIBILITY OF A FALSE NEGATIVE RESULT SHOULD ESPECIALLY BE CONSIDERED IF THE PATIENT'S RECENT EXPOSURES OR CLINICAL PRESENTATION INDICATE THAT COVID-19 IS LIKELY, AND DIAGNOSTIC TESTS FOR OTHER CAUSES OF ILLNESS (e.g., OTHER RESPIRATORY ILLNESS) ARE NEGATIVE. IF COVID-19 IS STILL SUSPECTED BASED ON EXPOSURE HISTORY TOGETHER WITH OTHER CLINICAL FINDINGS, RE-TESTING SHOULD BE CONSIDERED BY HEALTHCARE PROVIDERS IN CONSULTATION WITH PUBLIC HEALTH AUTHORITIES. Performed By: #### 2 [id number] #### [facility],[address] [place] [address] ED MED ADMINISTRATION DETAIL on 02-10-2024 ED MED ADMINISTRATION DETAIL Signals Intelligence Analyst Medication Administration Record [address] [address] [id number] 02/10/2024 Patient: BRYN AYON [facility]#: [id number] Sex: Male : 1945 Age: 78y MEASUREMENTS: Wt: 89.4 kg, Ht/Hector: 68.0 in, BMI: 29.95 ALLERGIES: No known drug allergies Medication Ordered Medication Administration Date/Time 1 of 1 Normal [facility] ED NURSES CLINICAL NOTEon ED NURSES CLINICAL NOTE Nurse Narrative Nurse Clinical Narrative [address] [address] [id number] 02/10/2024 [id number] Sex: Male : 1945 Age: 78y Disposition: Discharge to Home Disposition Decision Time: 16:34 02/10/2024 Departure Time: 16:52 02/10/2024 TRIAGE Triage time: 13:26 02/10/2024. Acuity: LEVEL 2. Chief Complaint: DIFFICULTY WALKING (dry mouth and broke out in a sweat). 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 SEPSIS SCREEN: NEGATIVE. SIRS criteria negative. No possible sources of infection. -- 13:36 02/10/24 MAYO Anaya R.N. 13:31 02/10/24. BP: 146/62 MAP: 90. HR: 59. RR: 16. O2 saturation: 94% Temperature: 97.7 F. Pain level now 710. -- 13:36 02/10/24 MAYO Anaya R.N. Measurements: 13:35 02/10/24 Wt: 89.4 kg, Ht/Hector: 68.0 in, BMI: 29.95 -- 13:35 02/10/24 MAYO Anaya R.N. Medications: semaglutide 2 mg/dose (8 mg/3 mL) subcutaneous pen injector: (on Friday) -- 13:43 02/10/24 MAYO Anaya R.N. Jardiance 25 mg tablet: 1 once a day. (pt is not sure) -- 13:43 02/10/24 MAYO Anaya R.N. Stiolto Respimat 2.5 mcg-2.5 mcg/actuation solution for inhalation: (pt states he's not longer taking) -- 13:43 02/10/24 MAYO Anaya R.N. 1 of 4 Nurse Narrative insulin glargine-yfgn (U-100) 100 unit/mL subcutaneous solution: 10 units once a day. -- 13:43 02/10/24 MAYO Anaya R.N. guaifenesin ER 600 mg tablet, extended release 12 hr: (pt states he doesnt think he is on it anymore) -- 13:43 02/10/24 MAYO Anaya R.N. furosemide 20 mg tablet: 1 tablet once a day. -- 13:43 02/10/24 MAYO Anaya R.N. fluticasone propionate 50 mcg/actuation blister powder for inhalation: 2 puff once a day. -- 13:43 02/10/24 MAYO Anaya R.N. clopidogrel 75 mg tablet: 1 tablet once a day. -- 13:43 02/10/24 AMYO Anaya R.N. asprin 81 tablet: 1 tablet once a day. -- 13:43 02/10/24 MAYO Anaya R.N. brompheniramine-pseud oephedrine-DM 2 mg-30 mg-10 mg/5 mL oral syrup: (pt states not taking anymore) -- 13:43 02/10/24 MAYO Anaya R.N. Allergies: no known drug allergies -- 13:33 02/10/24 MAYO Anaya R.N. Problems: Diabetes Mellitus -- 13:33 02/10/24 MAYO Anaya R.N. Chronic kidney disease stage 3 -- 13:33 02/10/24 MAYO Anaya R.N. Coronary artery bypass grafts x 3 (procedure): Active -- 13:33 02/10/24 MAYO Anaya R.N. Coronary Artery Disease -- 13:33 02/10/24 MAYO Anaya R.N. Essential Hypertension -- 13:33 02/10/24 MAYO Anaya R.N. COPD - Chronic Obstructive Pulmonary Disease -- 13:33 02/10/24 MAYO Anaya R.N. Congestive Heart Failure -- 13:33 02/10/24 MAYO Anaya R.N. ADDITIONAL SURGERIES: Catheterization of left heart -- 13:34 02/10/24 MAYO Anaya R.N. Implantation of automatic cardiac defibrillator -- 13:34 02/10/24 MAYO Anaya R.N. Coronary artery bypass grafts x 3 -- 13:34 02/10/24 MAYO Anaya R.N. Cholecystectomy -- 13:34 02/10/24 MAYO Anaya R.N. Pacemaker -- 13:34 02/10/24 MAYO Anaya R.N. basket to the heart -- 13:34 02/10/24 MAYO Anaya R.N. History 13:26 02/10/24. SOCIAL HX: Never smoker. No alcohol use or drug use. The patient has not traveled outside the [place] 2 of 4 Nurse Narrative Infectious disease exposure: No infectious disease exposure. ABUSE ASSESSMENT: The patient answered yes to the question(s) Do you feel safe in your home? and no to the question(s) Are you afraid to go home?. Abuse denied. No suspicion of abuse. SELF HARM ASSESSMENT: Self harm assessment was performed. The patient answered no to the question(s) Have you recently felt down, depressed, or hopeless? and Do you have thoughts of harming or killing yourself?. FALL RISK ASSESSMENT: Fall risk assessment completed. Risk factors identified include patient age greater than 65 years. Fall interventions initiated. Side rails up x2. Bed in low position. Brakes on. -- 13:36 02/10/24 MAYO Anaya R.N. Interventions 13:26 02/10/24. Advanced care plan (Full Code). -- 13:36 02/10/24 MAYO Anaya R.N. PHYSICAL ASSESSMENT 14:26 02/10/24. Ambulatory to room. ( Pt arrives amb to ED via POV from home. Pt states at around 1000 this morning and started with a dry mouth and sweating. Pt states this happened the last time he had a [place]. Pt denies SOB or CP. Pt does state he is taking cough medicine with codeine and he thinks that might be why he isn't feel.). GENERAL / NEURO / PSYCH: Alert. Oriented X 4. RESPIRATORY: Respirations not labored. Chest nontender. Breath sounds within normal limits. CVS: Capillary refill less than 2 seconds. Pulses within normal limits. SKIN: Skin is warm and dry. -- 14:51 02/10/24 MAYO Cali R.N. NURSING PROGRESS NOTES 13:33 02/10/24. Site #1 started via IV in the left a (more content not included)... Normal [facility] ED ORDER SHEET (CPOE ONLY)on 02-10-2024 ED ORDER SHEET (CPOE ONLY) Order Sheet Order Sheet [place] [id number] [place] [address] [id number] 02/10/2024 Patient: BRYN AYON Sex: Male : 1945 Age: 78y MEASUREMENTS: Wt: 89.4 kg, Ht/Hector: 68.0 in, BMI: 29.95 ALLERGIES: No known drug allergies MEDICATION/IV/DRIP/FL UID ORDERS Order Description Priority Entered Acknowledged Completed LAB ORDERS Order Description Priority Entered Acknowledged Collected Completed CBC w Diff Stat Stat 13:49 02/10/2024 13:51 02/10/2024 13:51 02/10/2024 Rhonda Sullivan Lemasters, D.O. R.N. R.N. CMP Stat Stat 13:49 02/10/2024 13:51 02/10/2024 13:51 02/10/2024 Rhonda Sullivan Lemasters, D.O. R.N. R.N. Troponin-I Stat Stat 13:49 02/10/2024 13:51 02/10/2024 13:51 02/10/2024 Rhonda Sullivan Lemasters, D.O. R.N. R.N. EKG - ED Stat Stat 13:49 02/10/2024 13:51 02/10/2024 13:51 02/10/2024 Rhonda Sullivan, 1 of 3 Order Sheet Laura Campa R.N. R.NGuillaume Rapid COVID (SARS) Stat 13:49 02/10/2024 13:51 02/10/2024 13:51 02/10/2024 ANTIGEN TEST Stat Rhonda Sullivan Lemasters, D.O. R.N. R.N. Flu Swab (Influenzae Stat 13:49 02/10/2024 13:51 02/10/2024 13:51 02/10/2024 AAg) Stat Rhonda Sullivan Lemasters, D.O. R.N. R.N. Troponin-I Stat Stat 15:32 02/10/2024 15:39 02/10/2024 Lokesh Sullivan D.O. R.N. DIAGNOSTIC STUDY ORDERS Order Description Priority Entered Acknowledged Completed Chest 1V Stat Stat 13:49 02/10/2024 13:51 13:51 Feliz Campa 02/10/2024 02/10/2024 Rhonda Jurado R.NGuillaume RJose Reason for Study: diaphoresis STAFF ORDERS Order Description Priority Entered Acknowledged Collected Completed Oxygen titrate to 92% 13:49 02/10/2024 13:51 02/10/2024 13:51 02/10/2024 Rhonda Sullivan Lemasters, D.O. R.N. R.NGuillamue Manager Underwriting 13:49 02/10/2024 13:51 02/10/2024 13:51 02/10/2024 Rhonda Sullivan Lemasters, D.O. R.N. R.NGuillaume 2 of 3 Order Sheet Vital signs every 15 13:49 02/10/2024 13:51 02/10/2024 13:51 02/10/2024 minutes Rhonda Sullivan Lemasters, D.O. R.N. R.N. IV Saline Lock 13:49 02/10/2024 13:51 02/10/2024 13:51 02/10/2024 Rhonda Sullivan Lemasters, D.O. R.N. R.NGuillaume [Electronically signed by Feliz Campa D.O. (02/10/2024 16:40 EST)] 3 of 3 Normal [facility] ED PHYSICIAN CLINICAL REPORT on 02-10-2024 ED PHYSICIAN CLINICAL REPORT Narrative Physician Clinical Narrative [address] [address] [id number] 02/10/2024 Patient: BRYN AYON Sex: Male : 1945 Age: 78y Disposition: Discharge Disposition Decision Time: 16:34 02/10/2024 Measurements Wt: 89.4 kg, Ht/Hector: 68.0 in, BMI: 29.95 Initial Vital Sign Measured Time BP MAP HR RR O2Sat ETCO2 Temp Pain GCS RTS 13:31 02/10/2024 146/62 90 59 16 94% 97.7 F 7 Time Seen: 13:32 02/10/2024. Arrived- By private vehicle. Historian- patient. HISTORY OF PRESENT ILLNESS Chief Complaint: Dry mouth and diaphoresis. (patient states he was recently admitted here overnight for pneumonia and completed a course of antibiotics at the end of December. States that he took cough medicine from urgent care proximally 3 days ago. States he felt very weak and has worsening dry mouth and intermittent sweating. Patient was concerned that he was having a heart attack. He however denies any chest pain, shortness of breath, nausea, vomiting, abdominal pain, urinary symptoms. Denies any sick contacts.). REVIEW OF SYSTEMS GI: No abdominal pain, nausea, vomiting or diarrhea. CONSTITUTIONAL: No fever or chills. : No difficulty with urination. 1 of 15 Narrative PAST HISTORY Chronic kidney disease stage 3 Congestive Heart Failure COPD - Chronic Obstructive Pulmonary Disease Coronary artery bypass grafts x 3 (procedure): [Active] Coronary Artery Disease Diabetes Mellitus Essential Hypertension Surgeries: basket to the heart Catheterization of left heart Cholecystectomy Coronary artery bypass grafts x 3 Implantation of automatic cardiac defibrillator Pacemaker Medications: asprin 81 tablet: 1 tablet once a day. brompheniramine-pseud oephedrine-DM 2 mg-30 mg-10 mg/5 mL oral syrup: (pt states not taking anymore) clopidogrel 75 mg tablet: 1 tablet once a day. fluticasone propionate 50 mcg/actuation blister powder for inhalation: 2 puff once a day. furosemide 20 mg tablet: 1 tablet once a day. guaifenesin ER 600 mg tablet, extended release 12 hr: (pt states he doesnt think he is on it anymore) insulin glargine-yfgn (U-100) 100 unit/mL subcutaneous solution: 10 units once a day. Jardiance 25 mg tablet: 1 once a day. (pt is not sure) semaglutide 2 mg/dose (8 mg/3 mL) subcutaneous pen injector: (on Friday) Stiolto Respimat 2.5 mcg-2.5 mcg/actuation solution for inhalation: (pt states he's not longer taking) Allergies: no known drug allergies SOCIAL HISTORY No alcohol use or drug use. 2 of 15 Narrative ADDITIONAL NOTES The nursing notes have been reviewed. PHYSICAL EXAM Vital Signs: Have been reviewed. Appearance: Alert. No acute distress. ENT: Pharynx normal. Neck: Normal inspection. Neck supple. CVS: Normal heart rate and rhythm. Heart sounds normal. Pulses normal. Respiratory: No respiratory distress. Breath sounds normal. Abdomen: No visible injury. Soft and nontender. Skin: Skin warm and dry. Normal skin color. Extremities: No lower extremity edema. Neuro: No motor deficit. No sensory deficit. LABS, X-RAYS, AND EKG 12-LEAD EKG: EKG time: 13:28 02/10/2024. Normal sinus rhythm. Rate: 66. LBBB. Non-specific ST segment / T wave abnormalities. The study has been interpreted contemporaneously by me. Interpretation time: 13:30 02/10/2024. 12-LEAD EKG #2: EKG time: 15:28 02/10/2024. Bradycardia (54). LVH. Non-specific ST segment / T wave abnormalities. The study has been interpreted contemporaneously by me. Interpretation time: 15:30 02/10/2024. Chest X-ray: No acute disease. The X-rays were independently viewed by me and interpreted by the radiologist. Laboratory Tests: CBC + DIFF Final CRISTELA: 02/10/2024 13:33:00 EST MsgRcvd: 02/10/2024 14:35 EST Lab Test Result Reference Status Received Comments 02/10/2024 14:35 CBC-COMPLETE CBC + DIFF Final EST BLOOD COUNT 3 of 15 Narrative 02/10/2024 14:35 WBC 8.2 x 10/UL 4.5 - 10.8 Final EST 02/10/2024 14:35 RBC 5.24 x 10/UL 4.50 - 6.00 Final EST 02/10/2024 14:35 HEMOGLOBIN 16.2 g/dl 13.0 - 17.5 Final EST 02/10/2024 14:35 HEMATOCRIT 47.9 % 40.0 - 52.0 Final EST 02/10/2024 14:35 MCV 92 fl 81 - 98 Final EST 02/10/2024 14:35 MCH 31 pg 27 - 33 Final EST 02/10/2024 14:35 MCHC 34 X10 3 32 - 36 Final EST 02/10/2024 14:35 RDW/CV 14.2 % 12.0 - 15.6 Final EST 02/10/2024 14:35 PLATELET 260 x10/UL 150 - 450 Final EST 02/10/2024 14:35 AUTOMATED MPV 6.7 fl 6.4 - 10.5 Final EST DIFFERENTIAL 02/10/2024 14:35 NEUT % 72.3 % 46.0 - 76.0 Final EST 16.9 % 02/10/2024 14:35 LYMPH % 20.0 - 45.0 Final Below low normal EST 02/10/2024 14:35 MONOS % 9.0 % 0.0 - 10.0 Final EST 02/10/2024 14:35 EO % 1.4 % 0.0 - 7.0 Final EST 4 of 15 Narrative 02/10/2024 (more content not included)... Normal [facility] ED SUPER BILLon 02-10-2024 ED [address] [address] [id number] 02/10/2024 Patient: BRYN AYON Sex: Male : 1945 Age: 78y Item Professional Category Description Facility Code Code Quantity Fee Total Nurse/E/M EMERGENCY 358158 1 $0.00 $0.00 DEPARTMENT VISIT MODERATE SEVERITY (51784-67) Grand Total $0.00 Providers Feliz Campa D.O. Chief Complaint Dry mouth and diaphoresis. Principal Diagnosis Weakness. ICD-10 Codes [address] of [address] 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 brompheniramine-pseud oephedrine-DM 2 mg-30 mg-10 mg/5 mL oral syrup: (pt states not taking anymore) clopidogrel 75 mg tablet: 1 tablet once a day. fluticasone propionate 50 mcg/actuation blister powder for inhalation: 2 puff once a day. of 4 Visit Overview furosemide 20 mg tablet: 1 tablet once a day. guaifenesin ER 600 mg tablet, extended release 12 hr: (pt states he doesnt think he is on it anymore) insulin glargine-yfgn (U-100) 100 unit/mL subcutaneous solution: 10 units once a day. Jardiance 25 mg tablet: 1 once a day. (pt is not sure) semaglutide 2 mg/dose (8 mg/3 mL) subcutaneous pen injector: (on Friday) Stiolto Respimat 2.5 mcg-2.5 mcg/actuation solution for inhalation: (pt states he's not longer taking) PAST MEDICAL HISTORY / PROBLEMS Chronic kidney disease stage 3 Congestive Heart Failure COPD - Chronic Obstructive Pulmonary Disease Coronary artery bypass grafts x 3 (procedure): Active Coronary Artery Disease Diabetes Mellitus Essential Hypertension PAST SURGICAL HISTORY basket to the heart Catheterization of left heart Cholecystectomy Coronary artery bypass grafts x 3 Implantation of automatic cardiac defibrillator Pacemaker SOCIAL HISTORY Smoking status: No Alcohol use: No Drug use: No ED COURSE MEDICATIONS GIVEN IN EMERGENCY DEPARTMENT IV SITE INFORMATION INTAKE 4 Visit Overview OUTPUT REASSESMENT (most recent) 14:26 02/10/24. Ambulatory to room. ( Pt arrives amb to ED via POV from home. Pt states at around 1000 this morning and started with a dry mouth and sweating. Pt states this happened the last time he had a [place]. Pt denies SOB or CP. Pt does state he is taking cough medicine with codeine and he thinks that might be why he isn't feel.). GENERAL / NEURO / PSYCH: Alert. Oriented X 4. RESPIRATORY: Respirations not labored. Chest nontender. Breath sounds within normal limits. CVS: Capillary refill less than 2 seconds. Pulses within normal limits. SKIN: Skin is warm and dry. VITAL SIGNS First Vitals Last Vitals Temp 13:31 02/10/24 97.7 F Temp 16:50 02/10/24 BP 13:31 02/10/24 146/62 BP 16:50 02/10/24 105/54 HR 13:31 02/10/24 59 HR 16:50 02/10/24 54 RR 13:31 02/10/24 16 RR 16:50 02/10/24 O2 Sat 13:31 02/10/24 94% O2 Sat 16:50 02/10/24 Pain 13:31 02/10/24 7 Pain 16:50 02/10/24 ETCO2 13:31 02/10/24 ETCO2 16:50 02/10/24 GCS 13:31 02/10/24 GCS 16:50 02/10/24 RTS 13:31 02/10/24 RTS 16:50 02/10/24 PROCEDURES NURSING INTERVENTIONS LABS / STUDIES LABS / STUDIES ORDERED CBC w Diff Chest 1V CMP EKG - ED Flu Swab (Influenzae AAg) Rapid COVID (SARS) ANTIGEN TEST Troponin-I Troponin-I 3 of 4 Visit Overview CLINICAL IMPRESSION WEAKNESS 4 of 4 Normal [facility] ED VITALS FLOW SHEETon 02-09 ED VITALS FLOW SHEET Vitals Vital Sign Flow Sheet [address] [address] [id number] 02/10/2024 Patient: BRYN AYON Sex: Male : 1945 Age: 78y Measurements Wt: 89.4 kg, Ht/Hector: 68.0 in, BMI: 29.95 Measured Time BP MAP HR RR O2Sat ETCO2 Temp Pain GCS RTS 16:50 02/10/2024 105/54 68 54 16:46 02/10/2024 55 94% 16:41 02/10/2024 55 96% 16:36 02/10/2024 55 97% 16:31 02/10/2024 54 95% 16:26 02/10/2024 56 93% 16:21 02/10/2024 54 95% 16:16 02/10/2024 56 95% 16:11 02/10/2024 56 93% 16:11 02/10/2024 96/53 70 55 16:06 02/10/2024 54 95% 16:01 02/10/2024 55 93% 15:56 02/10/2024 55 95% 15:51 02/10/2024 55 95% 15:51 02/10/2024 96/56 64 56 1 of 2 Vitals Measured Time BP MAP HR RR O2Sat ETCO2 Temp Pain GCS RTS 15:46 02/10/2024 54 92% 15:41 02/10/2024 55 92% 15:36 02/10/2024 56 90% 15:31 02/10/2024 55 92% 15:31 02/10/2024 96/57 65 56 15:26 02/10/2024 55 91% 15:21 02/10/2024 56 92% 15:16 02/10/2024 55 90% 15:01 02/10/2024 56 92% 14:56 02/10/2024 55 91% 14:51 02/10/2024 102/50 65 55 14:31 02/10/2024 55 93% 13:31 02/10/2024 146/62 90 59 16 94% 97.7 F 7 2 of 2 Normal [facility] INFLUENZA VIRUS RAPID A/Bon 02-10-2024 INFLUENZA VIRUS RAPID A/B INFLUENZA A NEGATIVE INFLUENZA B NEGATIVE INTERNAL NEG QC PASS INTERNAL POS QC PASS EXTERNAL QC DONE? YES SEND TO IC? NO A NEGATIVE TEST RESULT DOES NOT EXCLUDE INFECTION WITH INFLUENZA A OR B. THEREFORE, THE RESULTS OBTAINED FROM THIS FLU TEST SHOULD BE USED IN CONJUCTION WITH CLINICAL FINDINGS TO MAKE AN ACCURATE DIAGNOSIS. A POSITIVE RESULT DOES NOT RULE OUT CO-INFECTIONS WITH OTHER PATHOGENS OR IDENTIFY ANY SPECIFIC INFLUENZA A VIRUS SUBTYPE.CO-INFECTION WITH INFLUENZA A AND B IS RARE. IT IS RECOMMENDED THAT DUAL POSITIVE RESULTS BE CONFIRMED BY VIRAL CULTURE OR AN FDA-CLEARED INFLUENZA A AND B MOLECULAR ASSAY. INDIVIDUALS WHO HAVE RECEIVED NASALLY ADMINISTERED INFLUENZA A VACCINE MAY TEST POSITIVE IN COMMERCIALLY AVAILABLE INFLUENZA RAPID DIAGNOSTIC TESTS FOR UP TO THREE DAYS. RESULT CRITICAL? NO Normal [facility] Comment on above: Performed By: #### [id number] ####[facility],[address] [place] [address] TROPONINon 12-24-2024 HS TROPONIN 32.6 pg/mL Normal 0.0 - 76.2 [facility] Comment on above: Performed By: #### 2 [id number] #### [facility],[address] [place] [id number] HS TROPONIN 41.3 pg/mL Normal 0.0 - 76.2 [facility] Comment on above: Performed By: #### 2 [id number] #### [facility],[address] [place] [id number] CV VENOUS LEG RTon CV VENOUS LEG RT [place] [address] Patient: BRYN AYON Phone#: : 1945 Age: 78 Gender: M Pt. Type: Out Account: [id number] Location: 010 Ordering: RITU OLIVA Exam Date: 01/09/2024/8:56 Family Phys: Charge Code: [id number] Physician: Charlton Order #: [id number] Dose#: PROCEDURE: VENOUS DOPPLER RT LEG COMPARISON: None. INDICATIONS: R/O DVT TECHNIQUE: Color duplex Doppler ultrasound evaluation analysis was performed in the usual manner. STEAK TENDERIZER MACHINE: HEATHER BACK RVT [facility] RISK FACTORS FOR VENOUS DISEASE: Other R/O DVT EXAMINATION: RIGHT +Present -Reduced o Absent LEFT SPONT PHASIC AUG REFLUX COMP SPONT PHASIC AUG REFLUX COM + + + o + CFV + + + o + + SFJ + + + o + FV (prox) + FV (mid) + FV (dist) + + + o + POP V + + + o + T/P TRUNK + + + o + PTV + + + o + PERONEAL V + GSV GASTROC SOLEAL V STEAK TENDERIZER MACHINE'S NOTES: FINDINGS: THROMBI: None visible. Continued Report - Page 2 of 2 Patient: BRYN AYNO Phone#: : 1945 Age: 78 Gender: M Pt. Type: Out Account: [id number] Location: 010 Ordering: RITU OLIVA Exam Date: 01/09/2024/8:56 Family Phys: Charge Code: 111104 Physician: Charlton Order #: [id number] Dose#: COMPRESSIBILITY: Normal. OTHER: Negative. CONCLUSION: 1. No evidence of deep vein thrombus in the right lower extremity. Dictated by: Teresa Garcia MD on 01/09/2024 at 8:54 Approved by: Teresa Garcia MD on 01/09/2024 at 8:56 Normal [facility] ED MED ADMINISTRATION DETAIL on 01-09-2024 ED MED ADMINISTRATION DETAIL Signals Intelligence Analyst Medication Administration Record [place] [facility] [address] [place] [address] [id number] 01/08/2024 Patient: BRYN AYON Sex: Male : 1945 Age: 78y MEASUREMENTS: Wt: 88.5 kg, Ht/Hector: 68.0 in, BMI: 29.65 ALLERGIES: No known drug allergies Medication Ordered Medication Administration Date/Time Albuterol-Ipratropiu 18:46 01/07 Albuterol-Ipratropium (DuoNeb) 3mg/0.5mg Neb Tx 3 Given m (DuoNeb) mL given. Given by the respiratory therapist. Information reviewed 18:46 01/08/2024 3mg/0.5mg Neb Tx with patient. Verbalizes understanding. - 18:46 Mitzi Legg Mitzi Legg 3 mL (NOW x1) Scanned CefTRIAXone 18:50 01/07 CefTRIAXone (Rocephin) IVPB 2gm/50ml NS 2 g Started (Rocephin) IVPB started at 100 mL/hr diluted in sodium chloride IVPB 0.9 % 18:50 01/08/2024 2gm/50ml NS 2 g Minibag+ 50 mL via Site# 1. Allergies verified and confirmed 5 Lolis Yi R.N. diluted in sodium rights. Via IV pump. Information reviewed with patient including Stopped chloride IVPB 0.9 % reason for taking this medication, signs of allergic reaction and 19:36 01/08/2024 Minibag+ 50 mL at precautions. Verbalizes understanding. - 18:53 Lolis Yi R.N. David Wade R.N. 100 mL/hr (NOW x1) Scanned 19:36 01/07 Medication Discontinued: IV completed. Total amount infused: 50 mL. IV patency established. IV site checked: no pain, redness, or swelling. IV flushed thoroughly post-medication administration. - 20:01 Noe FarleyNGuillaume 1 of 2 Signals Intelligence Analyst Medication Ordered Medication Administration Date/Time doxycycline IVPB 19:42 01/07 doxycycline IVPB 100mg/100ml NS 100 mg started Started 100mg/100ml NS diluted in sodium chloride IVPB 0.9 % Minibag+ 100 mL over 1 19:42 01/08/2024 100 mg diluted in hour(s) via Site# 1. Allergies verified and confirmed 5 rights. IV David Wade, R.N. sodium chloride patency established. IV site checked: no pain, redness, or swelling. Stopped IVPB 0.9 % IV flushed thoroughly pre-medication administration. Information 20:40 01/08/2024 Minibag+ 100 mL reviewed with patient including reason for taking this medication. David Olvera R.N. (Concentration of Verbalizes understanding. - 19:46 David Olvera R.N. Scanned 1mg/ml, NOW x1) 20:40 11 Medication Discontinued: IV completed. Total amount infused: 100 mL. - 23:22 David Olvera R.N. Lasix IVP 40 mg 18:59 01/07 Lasix IVP 40 mg given via Site# 1. Allergies verified Given (NOW x1) and confirmed 5 rights. IV patency established. IV site checked: no 18:59 01/08/2024 pain, redness, or swelling. IV flushed thoroughly pre-medication Lolis Yi R.N. administration. Information reviewed with patient including reason Scanned for taking this medication, signs of allergic reaction and precautions. Verbalizes understanding. - 18:59 Lolis Yi R.N. 2 of 2 Normal [facility] ED NURSES CLINICAL NOTEon ED NURSES CLINICAL NOTE Nurse Narrative Nurse Clinical [address] [place] [address] [phone] 01/08/2024 Patient: BRYN AYON Sex: Male : 1945 Age: 78y Disposition: Observation to Med/Surg Disposition Decision Time: 23:49 01/08/2024 Departure Time: 00:08 01/09/2024 TRIAGE Arrived by private vehicle. Historian: patient. Accompanied by family. Triage time: 17:06 01/08/2024. Chief Complaint: COUGH. -- 17:12 01/08/24 MAYO Rodriguez R.N. 17:10 01/08/24. BP: 101/49 MAP: 66. HR: 55. RR: 16. O2 saturation: 95% Temperature: 98 F. Pain level now 0/10. -- 17:10 01/08/24 MAYO Rodriguez R.N. 17:21 01/08/24. SEPSIS SCREEN: NEGATIVE. SIRS criteria negative. No possible sources of infection. -- 17:36 01/08/24 MAYO Rodriguez R.N. Acuity: LEVEL 3. 17:26 01/08/24. -- 17:36 01/08/24 MAYO Rodriguez R.N. Measurements: 17:08 01/08/24 Wt: 88.5 kg, Ht/Hector: 68.0 in, BMI: 29.65 -- 17:08 01/08/24 MAYO Rodriguez R.N. Medications: clopidogrel 75 mg tablet -- 17:16 01/08/24 MAYO Rodriguez R.N. nitroglycerin 0.4 mg sublingual tablet -- 17:16 01/08/24 MAYO Rodriguez R.N. 1 of 5 Nurse Narrative furosemide 20 mg tablet -- 17:16 01/08/24 MAYO Rodriguez R.N. Jardiance 25 mg tablet -- 17:16 01/08/24 MAYO Rodriguez R.N. amiodarone 200 mg tablet: 1 tablet once a day. -- 17:31 01/08/24 MAYO Cartagena R.N. cholecalciferol (vitamin D3) 50 mcg (2,000 unit) tablet: 1 tablet once a day. -- 17:31 01/08/24 MAYO Cartagena R.N. cyanocobalamin (vitamin B-12) 1,000 mcg capsule: 1 capsule once a day. -- 17:31 01/08/24 MAYO Cartagena R.N. empagliflozin 25 mg tablet: 1/2 tablet once a day. -- 17:31 01/08/24 MAYO Cartagena R.N. ezetimibe 10 mg tablet: 1 tablet once a day. -- 17:31 01/08/24 MAYO Cartagena R.N. isosorbide mononitrate tablet 30mg 30m tablet once a day. -- 17:31 01/08/24 MAYO Cartagena R.N. magnesium oxide 420 mg tablet: 1 tablet twice a day. -- 17:31 01/08/24 MAYO Cartagena R.N. losartan 25 mg tablet: 1 tablet once a day. -- 17:31 01/08/24 MAYO Cartagena R.N. atorvastatin 20 mg tablet: 1 tablet once a day as directed. -- 17:31 01/08/24 EST Sue Cartagena R.N. asprin 81 81: 1 tablet once a day. -- 17:31 01/08/24 EST Sue Cartagena R.N. albuterol sulfate 2.5 mg/3 mL (0.083 %) solution for nebulization -- 17:33 01/08/24 EST Willy Rodriguez R.N. Stiolto Respimat 2.5 mcg-2.5 mcg/actuation solution for inhalation -- 17:33 01/08/24 EST Willy Rodriguez R.N. fluticasone propionate 50 mcg/actuation blister powder for inhalation -- 17:33 01/08/24 EST Willy Rodriguez R.N. insulin glargine-yfgn (U-100) 100 unit/mL subcutaneous solution: 12 units once a day . -- 17:34 01/08/24 MAYO Rodriguez R.N. semaglutide 2 mg/dose (8 mg/3 mL) subcutaneous pen injector -- 17:35 01/08/24 MAYO Rodriguez R.N. guaiFENesin ER 600 mg tablet, extended release 12 hr -- 17:35 01/08/24 MAYO Rodriguez R.N. Allergies: no known drug allergies -- 17:06 01/08/24 MAYO Rodriguez R.N. Problems: Diabetes Mellitus -- 17:06 01/08/24 MAYO Rodriguez R.N. Chronic kidney disease stage 3 -- 17:06 01/08/24 MAYO Rodriguez R.N. Coronary artery bypass grafts x 3 (procedure): Active -- 17:06 01/08/24 MAYO Rodriguez R.N. Coronary Artery Disease -- 17:06 01/08/24 MAYO Rodriguez R.N. Essential Hypertension -- 17:06 01/08/24 MAYO Rodriguez R.N. COPD - Chronic Obstructive Pulmonary Disease -- 17:06 01/08/24 MAYO Rodriguez R.N. Congestive Heart Failure -- 17:07 01/08/24 MAYO Rodriguez R.N. ADDITIONAL SURGERIES: Catheterization of left heart -- 17:07 01/08/24 MAYO Rodriguez R.N. 2 of 5 Nurse Narrative Implantation of automatic cardiac defibrillator -- 17:07 01/08/24 MAYO Rodriguez R.N. Coronary artery bypass grafts x 3 -- 17:07 01/08/24 MAYO Rodriguez R.N. Cholecystectomy -- 17:07 01/08/24 MAYO Rodriguez R.N. Pacemaker -- 17:07 01/08/24 MAYO Rodriguez R.N. History 17:06 01/08/24. SOCIAL HX: Never smoker. No alcohol use or drug use. The patient has not traveled outside the [place] Infectious disease exposure: No infectious disease exposure. ABUSE ASSESSMENT: Abuse denied. SELF HARM ASSESSMENT: Self harm assessment was performed. The patient answered no to the question(s) Do you have thoughts of harming or killing yourself? and Do you have a plan for harming or killing yourself?. FALL RISK ASSESSMENT: Fall risk assessment completed. No risk factors identified. -- 17:12 01/08/24 MAYO Rodriguez R.N. Interventions 17:06 01/08/24. Advanced care plan discussed with patient. Patient does not have advanced directive. -- 17:12 01/08/24 MAYO Rodriguez R.N. PHYSICAL ASSESSMENT 17:45 01/08/24. GENERAL / NEURO / PSYCH: (more content not included)... Normal [facility] ED ORDER SHEET (CPOE ONLY)on 01-09-2024 ED ORDER SHEET (CPOE ONLY) Order Sheet Order Sheet [facility] [address] [place] [address] [id number] 01/08/2024 Patient: BRYN AYON Sex: Male : 1945 Age: 78y MEASUREMENTS: Wt: 88.5 kg, Ht/Hector: 68.0 in, BMI: 29.65 ALLERGIES: No known drug allergies MEDICATION/IV/DRIP/FL UID ORDERS Order Description Priority Entered Acknowledged Completed Albuterol-Ipratropium (DuoNeb) 18:30 01/08/2024 18:31 18:46 3mg/0.5mg Neb Tx3 mL (NOW Krys Barr M.D. 01/08/2024 01/08/2024 x1) Mitzi Mcmahan R.N. CefTRIAXone (Rocephin) IVPB 18:36 01/08/2024 18:44 18:53 2gm/50ml NS2 g diluted in Krys Barr M.D. 01/08/2024 01/08/2024 sodium chloride IVPB 0.9 % Lolis Mcmahan Minibag+ 50 mL at 100 mL/hr R.N. R.N. (NOW x1) doxycycline IVPB 100mg/100ml 18:36 01/08/2024 18:44 19:46 NS100 mg diluted in sodium Krys Barr M.D. 01/08/2024 01/08/2024 chloride IVPB 0.9 % Minibag+ David Mcmahan, R.N. 100 mL (Concentration of R.N. 1mg/ml, NOW x1) Lasix IVP40 mg (NOW x1) 18:50 01/08/2024 18:53 18:59 Krys Barr M.D. 01/08/2024 01/08/2024 Lolis Mcmahan RGuillaumeNGuillaume RGuillaumeNGuillaume 1 of 4 Order Sheet Reason for ordering with alerts: Clinical consideration given --18:50 01/08/2024 Krys Barr M.D. LAB ORDERS Order Description Priority Entered Acknowledged Collected Completed CBC w Diff Stat Stat 17:15 01/08/2024 17:46 01/08/2024 17:47 01/08/2024 Lolis Diaz Katelyn Horst, M.D. R.N. R.N. COVID PCR Stat Stat 17:15 01/08/2024 17:46 01/08/2024 17:47 01/08/2024 Lolis Diaz Katelyn Horst, M.D. R.N. R.N. Flu Swab (Influenzae Stat 17:15 01/08/2024 17:46 01/08/2024 17:47 01/08/2024 AAg) Stat Lolis Diaz Katelyn Horst, M.D. R.N. R.N. EKG - ED Stat Stat 17:15 01/08/2024 17:46 01/08/2024 17:47 01/08/2024 Lolsi Diaz Katelyn Horst, M.D. R.N. R.N. Troponin-I Stat Stat 17:15 01/08/2024 17:47 01/08/2024 17:47 01/08/2024 Lolis Diaz Katelyn Horst, M.D. R.N. R.N. BNP Stat Stat 17:15 01/08/2024 17:46 01/08/2024 17:47 01/08/2024 Lolis Diaz Katelyn Horst, M.D. R.N. R.Danyell Lactate, Serum Stat Stat 17:15 01/08/2024 17:46 01/08/2024 17:47 01/08/2024 Lolis Diaz Katelyn Horst, M.D. R.N. R.N. 2 of 4 Order Sheet D-Dimer Stat Stat 18:33 01/08/2024 18:35 01/08/2024 18:35 01/08/2024 Lolis Diaz Katelyn Horst, M.D. R.N. R.N. BMP Stat Stat 20:08 01/08/2024 20:10 01/08/2024 Laura Blake, R.NGuillaume DIAGNOSTIC STUDY ORDERS Order Description Priority Entered Acknowledged Completed Chest 1V Stat Stat 17:15 01/08/2024 17:47 17:55 Krys Barr M.D. 01/08/2024 01/08/2024 Lolis Mcmahan R.N. R.N. Reason for Study: Cough CTA Chest w Recon Stat Stat 19:52 01/08/2024 Cancelled: Wrong Order Eliezer Constantino D.O. 19:59 EST Eliezer Constantino D.O. Order Comments: 19:52 01/08/2024: (sob, elevated dimer) Eliezer Constantino D.O. Reason for Study: Pulmonary Embolism CT Chest PE Study Stat Stat 19:59 01/08/2024 19:59 21:51 Eliezer Constantino D.O. 01/08/2024 01/08/2024 David Olvera, R.NGuillaume Olvera, R.N. Order Comments: 19:59 01/08/2024: (sob, elevated dimer) Eliezer Constantino D.O. Reason for Study: sob STAFF ORDERS Order Description Priority Entered Acknowledged Collected Completed IV Saline Lock 17:15 01/08/2024 17:47 01/08/2024 17:47 01/08/2024 Lolis Diaz Katelyn Horst, M.D. R.N. R.N. 3 of 4 Order Sheet [Electronically signed by Krys Barr M.D. (01/08/2024 18:58 EST)] [Electronically signed by Eliezer Constantino D.O. (01/08/2024 23:54 EST)] 4 of 4 Normal [facility] ED PHYSICIAN CLINICAL REPORT on 01-09-2024 ED PHYSICIAN CLINICAL REPORT Narrative Physician Clinical Narrative [facility] [address] [place] [address] [phone] 01/08/2024 Patient: BRYN AYON Sex: Male : 1945 Age: 78y Measurements Wt: 88.5 kg, Ht/Hector: 68.0 in, BMI: 29.65 Initial Vital Sign Measured Time BP MAP HR RR O2Sat ETCO2 Temp Pain GCS RTS 17:10 01/08/2024 101/49 66 55 16 95% 98.0 F 0 Time Seen: 17:06 01/08/2024. Historian- patient. Independent historian- family. HISTORY OF PRESENT ILLNESS Chief Complaint: DYSPNEA. (Patient has had a cough which has been ongoing for the last several days.). The patient has had a cough and dyspnea on exertion. The patient has had sputum production (Feels mucus but not really coughing it up). No chest pain or discomfort. (patient presents here with a cough congestion. This has been ongoing for a few days. He does feel little short of breath. No documented fever. He also has had some swelling in his right leg but he has had that ever since the catheterization with the Watchman procedure. He is on aspirin and Plavix but not on any other thinners. He denies any chest pain. He does feel congested. He does feel little bit short of breath. Most of his concern is a more productive cough. He denies any abdominal pain. Denies any numbness tingling or weakness. He does not have a history of congestive heart failure.). REVIEW OF SYSTEMS GI: No nausea, vomiting or abdominal pain. NOSE: The patient has had a nasal discharge. THROAT: No sore throat. CONSTITUTIONAL: The patient has not had weight loss. No muscle aches. NEUROLOGICAL: No headache or fainting episodes. 1 of 23 Narrative PAST HISTORY See nurses notes. Chronic kidney disease stage 3 Congestive Heart Failure COPD - Chronic Obstructive Pulmonary Disease Coronary artery bypass grafts x 3 (procedure): [Active] Coronary Artery Disease Diabetes Mellitus Essential Hypertension Surgeries: Catheterization of left heart Cholecystectomy Coronary artery bypass grafts x 3 Implantation of automatic cardiac defibrillator Pacemaker Medications: albuterol sulfate 2.5 mg/3 mL (0.083 %) solution for nebulization amiodarone 200 mg tablet: 1 tablet once a day. asprin 81 81: 1 tablet once a day. atorvastatin 20 mg tablet: 1 tablet once a day as directed. cholecalciferol (vitamin D3) 50 mcg (2,000 unit) tablet: 1 tablet once a day. clopidogrel 75 mg tablet cyanocobalamin (vitamin B-12) 1,000 mcg capsule: 1 capsule once a day. empagliflozin 25 mg tablet: 1/2 tablet once a day. ezetimibe 10 mg tablet: 1 tablet once a day. fluticasone propionate 50 mcg/actuation blister powder for inhalation furosemide 20 mg tablet guaiFENesin ER 600 mg tablet, extended release 12 hr insulin glargine-yfgn (U-100) 100 unit/mL subcutaneous solution: 12 units once a day . isosorbide mononitrate tablet 30mg 30m tablet once a day. Jardiance 25 mg tablet losartan 25 mg tablet: 1 tablet once a day. magnesium oxide 420 mg tablet: 1 tablet twice a day. nitroglycerin 0.4 mg sublingual tablet 2 of 23 Narrative semaglutide 2 mg/dose (8 mg/3 mL) subcutaneous pen injector Stiolto Respimat 2.5 mcg-2.5 mcg/actuation solution for inhalation Allergies: no known drug allergies SOCIAL HISTORY Smoker- current status unknown. ADDITIONAL NOTES The nursing notes have been reviewed. PHYSICAL EXAM Vital Signs: Have been reviewed. Appearance: No acute distress. Eyes: Pupils equal, round and reactive to light. Eyes normal inspection. ENT: Ears normal. Pharyngeal erythema. Neck: Normal inspection. No jugular venous distention. Neck supple. CVS: Normal heart rate. Heart sounds normal. Pulses normal. Respiratory: No respiratory distress. Breath sounds abnormal. Painless inspiration. Mild bilateral rhonchi present diffusely. Abdomen: Soft and nontender. No organomegaly. Back: Normal inspection. Skin: Normal skin color. (Chronic stasis changes). Extremities: Mild 2+ edema of the right lower extremity. Neuro: Oriented X 3. No motor deficit. No sensory deficit. LABS, X-RAYS, AND EKG 12-LEAD EKG: EKG time: 17:38 01/08/2024. No acute ischemia. Normal sinus rhythm. Rate: 50. Bradycardia. The study has been interpreted contemporaneously by me. The EKG appears to be a good tracing. Interpretation time: 17:38 01/08/2024. Chest X-ray: Infiltrate present (streaking L base). Cardiomegaly. (pacemaker). Laboratory Tests: 3 of 23 Narrative CBC + DIFF Final CRISTELA: 01/08/2024 17:29:00 EST MsgRcvd: 01/08/2024 17:55 EST Lab Test Result Reference Status Received Comments 01/08/2024 17:55 CBC-COMPLETE CBC + DIFF Final EST BLOOD COUNT 01/08/2024 17:55 WBC 10.0 x 10/UL 4.5 - 10.8 Final EST 4.36 x 10/UL 01/08/2024 17:55 RBC 4.50 - 6.00 Final Below low normal EST 01/08/2024 17:55 HEMOGLOBIN 13.4 g/dl 13.0 - 17. (more content not included)... Normal [facility] ED [facility] 01-09-2024 ED [place] [address] [place] [address] [phone] 01/08/2024 Patient: BRYN AYON Sex: Male : 1945 Age: 78y Facility Professional Category Item Description Code Code Quantity Fee Total Nurse/E/M EMERGENCY 967257 1 $0.00 $0.00 DEPT VISIT HIGH SEVERITYFUNCJ (20257-14) Nurse/IV/IM/Infusions Drip/IVPB initial 456718 1 $0.00 $0.00 (63788) Nurse/IV/IM/Infusions Drip/IVPB seq [id number] 1 $0.00 $0.00 (49082) Nurse/IV/IM/Infusions IVP additional [id number] 1 $0.00 $0.00 push (71502) Nurse/Procedures Respiratory 039911 1 $0.00 $0.00 therapy - inhalation (69464) Grand $0.00 Total Providers Krys Barr M.D. Eliezer Constantino D.O. [address] [facility] Chief Complaint DYSPNEA. Principal Diagnoses Acute dyspnea. Moderate congestive heart failure. Pneumonia. Cough hypoxia. Probable hypoxia. Probable acute cough. ICD-10 Codes R06.09: Other forms of dyspnea J18.9: Pneumonia, unspecified organism I50.9: Heart failure, unspecified 2 of 2 Normal [facility] ED VISIT SUMMARYon ED VISIT SUMMARY Visit Overview Visit Overview [facility] [address] [place] [address] [phone] 01/08/2024 Patient: BRYN AYON Sex: Male : 1945 Age: 78y 01/09/2024 12:11 AM EST ED Arrival:17:03 01/08/2024 EST Status: Recent Travel:no Language:eng Adv Directive:No Isolation Status: Ethnicity:N Fall Risk:no risk Infectious Disease Exposure:no Measurements:5'8 / 172.7 Self-Harm Status:no risk Sepsis Screen:negative cm 195.0 lb / 88.5 kg Chief Complaint:COUGH ALLERGIES No Known Drug Allergies HOME MEDICATIONS albuterol sulfate 2.5 mg/3 mL (0.083 %) solution for nebulization amiodarone 200 mg tablet: 1 tablet once a day. asprin 81 81: 1 tablet once a day. atorvastatin 20 mg tablet: 1 tablet once a day as directed. cholecalciferol (vitamin D3) 50 mcg (2,000 unit) tablet: 1 tablet once a day. clopidogrel 75 mg tablet cyanocobalamin (vitamin B-12) 1,000 mcg capsule: 1 capsule once a day. empagliflozin 25 mg tablet: 1/2 tablet once a day. 1 of 4 Visit Overview ezetimibe 10 mg tablet: 1 tablet once a day. fluticasone propionate 50 mcg/actuation blister powder for inhalation furosemide 20 mg tablet guaiFENesin ER 600 mg tablet, extended release 12 hr insulin glargine-yfgn (U-100) 100 unit/mL subcutaneous solution: 12 units once a day . isosorbide mononitrate tablet 30mg 30m tablet once a day. Jardiance 25 mg tablet losartan 25 mg tablet: 1 tablet once a day. magnesium oxide 420 mg tablet: 1 tablet twice a day. nitroglycerin 0.4 mg sublingual tablet semaglutide 2 mg/dose (8 mg/3 mL) subcutaneous pen injector Stiolto Respimat 2.5 mcg-2.5 mcg/actuation solution for inhalation PAST MEDICAL HISTORY / PROBLEMS Chronic kidney disease stage 3 Congestive Heart Failure COPD - Chronic Obstructive Pulmonary Disease Coronary artery bypass grafts x 3 (procedure): Active Coronary Artery Disease Diabetes Mellitus Essential Hypertension See nurses notes PAST SURGICAL HISTORY Catheterization of left heart Cholecystectomy Coronary artery bypass grafts x 3 Implantation of automatic cardiac defibrillator Pacemaker SOCIAL HISTORY Smoking status: No Alcohol use: No Drug use: No 2 of 4 Visit Overview ED COURSE MEDICATIONS GIVEN IN EMERGENCY DEPARTMENT 18:46 01/08/24 Albuterol-Ipratropium (DuoNeb) 3mg/0.5mg Neb Tx 3 mL CefTRIAXone (Rocephin) IVPB 2gm/50ml NS 2 g diluted in sodium chloride IVPB 0.9 18:50 01/08/24 % Minibag+ 50 mL 100 mL/hr 18:59 01/08/24 Lasix IVP 40 mg doxycycline IVPB 100mg/100ml NS 100 mg diluted in sodium chloride IVPB 0.9 % 19:42 01/08/24 Minibag+ 100 mL over 1 hour(s) IV SITE INFORMATION 18:27 01/08/24 Site #1 left AC, 18g. Saline lock. INTAKE OUTPUT Total Urine 1400 mL TOTAL OUTPUT 1400 mL REASSESMENT (most recent) 18:52 01/08/24. Post assessment. O2 saturation- 97 (FIO2-1 liter/min nasal cannula). Heart rate: (50). Respiratory rate: (16). Alert. Oriented X 4. No respiratory distress. Decreased breath sounds (throughout). VITAL SIGNS First Vitals Last Vitals Temp 17:10 01/08/24 98.0 F Temp 00:07 01/09/24 BP 17:10 01/08/24 101/49 BP 00:07 01/09/24 HR 17:10 01/08/24 55 HR 00:07 01/09/24 61 RR 17:10 01/08/24 16 RR 00:07 01/09/24 O2 Sat 17:10 01/08/24 95% O2 Sat 00:07 01/09/24 97% Pain 17:10 01/08/24 0 Pain 00:07 01/09/24 ETCO2 17:10 01/08/24 ETCO2 00:07 01/09/24 GCS 17:10 01/08/24 GCS 00:07 01/09/24 RTS 17:10 01/08/24 RTS 00:07 01/09/24 PROCEDURES NURSING INTERVENTIONS 3 of 4 Visit Overview Respiratory therapy LABS / STUDIES LABS / STUDIES ORDERED BMP BNP CBC w Diff Chest 1V COVID PCR CT Chest PE Study D-Dimer EKG - ED Flu Swab (Influenzae AAg) Lactate, Serum Troponin-I CLINICAL IMPRESSION ACUTE DYSPNEA MODERATE CONGESTIVE HEART FAILURE PNEUMONIA PROBABLE ACUTE COUGH PROBABLE HYPOXIA 4 of 4 Normal [facility] ED VITALS FLOW SHEETon 01-08 ED VITALS FLOW SHEET Vitals Vital Sign Flow Sheet [facility] [address] [facility] [place] [address] [phone] 01/08/2024 Patient: BRYN AYON Sex: Male : 1945 Age: 78y Measurements Wt: 88.5 kg, Ht/Hector: 68.0 in, BMI: 29.65 Measured Time BP MAP HR RR O2Sat ETCO2 Temp Pain GCS RTS 00:07 01/09/2024 61 97% 00:02 01/09/2024 65 96% 23:57 01/08/2024 69 93% 23:57 01/08/2024 142/62 88 70 23:52 01/08/2024 67 97% 23:47 01/08/2024 86% 23:42 01/08/2024 71 94% 23:40 01/08/2024 130/82 86 73 23:37 01/08/2024 74 95% 23:32 01/08/2024 69 94% 23:27 01/08/2024 64 95% 23:25 01/08/2024 125/83 91 64 23:22 01/08/2024 65 94% 23:17 01/08/2024 63 95% 23:12 01/08/2024 66 95% 1 of 5 Vitals Measured Time BP MAP HR RR O2Sat ETCO2 Temp Pain GCS RTS 23:11 01/08/2024 125/63 75 63 23:07 01/08/2024 62 94% 23:02 01/08/2024 65 95% 22:57 01/08/2024 64 96% 22:55 01/08/2024 140/67 81 63 22:52 01/08/2024 64 97% 22:47 01/08/2024 66 94% 22:42 01/08/2024 60 97% 22:40 01/08/2024 142/62 88 64 22:37 01/08/2024 65 97% 22:32 01/08/2024 63 97% 22:27 01/08/2024 64 98% 22:25 01/08/2024 143/60 87 70 22:22 01/08/2024 68 97% 22:17 01/08/2024 67 97% 22:12 01/08/2024 69 97% 22:10 01/08/2024 133/63 107 65 21:57 01/08/2024 96% 21:52 01/08/2024 64 98% 21:47 01/08/2024 68 99% 21:42 01/08/2024 63 98% 21:40 01/08/2024 149/78 101 63 21:37 01/08/2024 65 96% 21:29 01/08/2024 66 99% 21:25 01/08/2024 143/55 84 65 2 of 5 Vitals Measured Time BP MAP HR RR O2Sat ETCO2 Temp Pain GCS RTS 21:24 01/08/2024 65 99% 21:19 01/08/2024 68 96% 21:11 01/08/2024 69 93% 21:11 01/08/2024 140/123 127 71 21:06 01/08/2024 63 96% 21:01 01/08/2024 66 96% 20:56 01/08/2024 64 96% 20:55 01/08/2024 128/65 93 63 20:51 01/08/2024 61 96% 20:46 01/08/2024 65 97% 20:41 01/08/2024 66 96% 20:40 01/08/2024 121/80 87 58 20:36 01/08/2024 62 96% 20:31 01/08/2024 63 94% 20:26 01/08/2024 61 96% 20:25 01/08/2024 124/59 80 62 20:21 01/08/2024 61 96% 20:16 01/08/2024 60 97% 20:11 01/08/2024 61 96% 20:10 01/08/2024 111/43 65 62 20:06 01/08/2024 65 97% 20:01 01/08/2024 63 96% 19:56 01/08/2024 65 94% 19:55 01/08/2024 128/56 75 66 19:51 01/08/2024 62 95% 3 of 5 Vitals Measured Time BP MAP HR RR O2Sat ETCO2 Temp Pain GCS RTS 19:46 01/08/2024 64 95% 19:41 01/08/2024 66 94% 19:40 01/08/2024 101/57 64 62 19:36 01/08/2024 61 94% 19:31 01/08/2024 63 95% 19:26 01/08/2024 62 96% 19:25 01/08/2024 107/56 73 60 19:21 01/08/2024 62 93% 19:16 01/08/2024 61 95% 19:11 01/08/2024 61 95% 19:10 01/08/2024 103/53 68 55 19:06 01/08/2024 52 95% 19:01 01/08/2024 49 94% 18:56 01/08/2024 49 95% 18:55 01/08/2024 110/46 67 48 18:51 01/08/2024 53 98% 18:46 01/08/2024 59 97% 18:41 01/08/2024 59 96% 18:40 01/08/2024 114/61 70 58 18:36 01/08/2024 59 95% 18:31 01/08/2024 54 95% 18:31 01/08/2024 95% NC 2L 18:30 01/08/2024 87% RA 18:26 01/08/2024 47 92% 4 of 5 Vitals Measured Time BP MAP HR RR O2Sat ETCO2 Temp Pain GCS RTS 18:25 01/08/2024 94/52 64 46 18:21 01/08/2024 47 91% 18:16 01/08/2024 48 93% 18:11 01/08/2024 48 92% 18:10 01/08/2024 105/57 74 47 18:06 01/08/2024 49 88% 18:01 01/08/2024 49 90% 17:56 01/08/2024 48 94% 17:55 01/08/2024 103/47 79 50 17:10 01/08/2024 101/49 66 55 16 95% 98.0 F 0 5 of 5 Normal [facility] BMP with eGFRon 01-08-2024 AGE 78 years Normal [facility] Comment on above: Performed By: #### [id number] #### [facility],[address] [place], [place] [id number] Anion gap [Moles/Vol] 13 mmol/L Normal 10 - 20 [facility] Comment on above: Performed By: #### 2 [id number] #### [facility],[address] [place], [place] [id number] BMP with eGFR Normal [facility] Comment on above: Result Comment: BASI C METABOLIC PANEL Performed By: #### 2 56284 #### [facility],[address] [place] [address] 15400 Calcium [Mass/Vol] 8.3 mg/dL Low 8.5 - 10.1 [facility] Comment on above: Performed By: #### 2 28229 #### [facility],[address] [place] [address] 11872 Chloride [Moles/Vol] 103 mmol/L Normal 98 - 107 [facility] Comment on above: Performed By: #### 2 07128 #### [facility],[address] [place] [address] 47997 CO2 [Moles/Vol] 28.5 mmol/L Normal 21.0 - 32.0 [facility] Comment on above: Performed By: #### 2 20313 #### [facility],[address] [place] [address] 56537 Creatinine [Mass/Vol] 2.05 mg/dL High 0.70 - 1.30 [facility] Comment on above: Performed By: #### 2 05878 #### [facility],[address] [place] [address] 32251 eGFR 31 ML/MINUTE Low 60 - 999 [facility] Comment on above: Performed By: #### 2 85183 #### [facility],[address] [place] [address] 88171 eGFR(AA) 38 ML/MINUTE Low 60 - 999 [facility] Comment on above: Result Comment: ACCO RDING TO THE NATIONAL KIDNEY DISEASE EDUCATION PROGRAM(NKDE), A NORMAL eGFR IS A VALUE GREATER THAN OR EQUAL TO 60 ML/MIN/1.73 SQ METERS. CHRONIC KIDNEY DISEASE: <60mL/MIN/1.73 SQ METERS KIDNEY FAILURE: <15mL/MIN/1.73 SQ METERS THIS TEST SHOULD ONLY BE USED FOR PATIENTS 18 YEARS OF AGE AND OLDER. Performed By: #### 2 19354 #### [facility],[address] [place] [address] 02739 Glucose [Mass/Vol] 168 mg/dL High 74 - 106 [facility] Comment on above: Performed By: #### 2 35393 #### [facility],[address] [place] [address] 64117 Potassium [Moles/Vol] 4.4 mmol/L Normal 3.5 - 5.1 [facility] Comment on above: Performed By: #### 2 17665 #### [facility],[address] [place] [address] 60665 Sodium [Moles/Vol] 140 mmol/L Normal 136 - 145 [facility] Comment on above: Performed By: #### 2 21435 #### [facility],[address] [place] [address] 54158 Urea nitrogen [Mass/Vol] 48 mg/dL High 7 - 18 [facility] Comment on above: Performed By: #### 2 18449 #### [facility],[address] [place] [address] 64799 CBC + DIFFon 11-21-2024 Baso # 0.03 x10EE3/UL Normal 0.00 - 0.10 [facility] Comment on above: Performed By: #### 2 30066 ####[facility],[address] [place] [address] Basophils/100 WBC (Bld) 0.3 % Normal 0.0 - 2.0 [facility] Comment on above: Performed By: #### 2 08543 ####[facility],[address] [place] [address] CBC + DIFF Normal [facility] Comment on above: Result Comment: CBC- COMPLETE BLOOD COUNT Performed By: #### 2 51104 ####[facility],[address] [place] [address] EO # 0.14 x10EE3/UL Normal 0.00 - 0.50 [facility] Comment on above: Performed By: #### 2 51090 ####[facility],[address] [place] [address] Eosinophils/100 WBC (Bld) 1.4 % Normal 0.0 - 7.0 [facility] Comment on above: Performed By: #### 2 56090 ####[facility],[address] [place] [address] Erythrocyte distribution width (RBC) [Ratio] 13.7 % Normal 12.0 - 15.6 [facility] Comment on above: Performed By: #### 2 92062 ####[facility],[address] [place] [address] Hematocrit (Bld) [Volume fraction] 40.6 % Normal 40.0 - 52.0 [facility] Comment on above: Performed By: #### 2 44336 ####[facility],[address] [place] [address] Hemoglobin (Bld) [Mass/Vol] 13.4 g/dL Normal 13.0 - 17.5 [facility] Comment on above: Performed By: #### 2 39643 ####[facility],[address] [place] [address] 46945 Lymph # 0.80 x10EE3/UL Normal 0.80 - 2.80 [facility] Comment on above: Performed By: #### 2 79695 ####[facility],[address] [place] [address] Lymphocytes/100 WBC (Bld) 8.0 % Low 20.0 - 45.0 [facility] Comment on above: Performed By: #### 2 74024 ####[facility],[address] [place] [address] MANUAL DIFF N/A Normal [facility] Comment on above: Performed By: #### 2 16542 ####[facility],[address] [place] [address] MCH (RBC) [Entitic mass] 31 pg Normal 27 - 33 [facility] Comment on above: Performed By: #### 2 58335 ####[facility],[address] [place] [address] MCHC 33 X10 3 Normal 32 - 36 [facility] Comment on above: Performed By: #### 2 78953 ####[facility],[address] [place] [address] 01052 MCV (RBC) [Entitic vol] 93 fL Normal 81 - 98 [facility] Comment on above: Performed By: #### 2 31536 ####[facility],[address] [place] [address] 19251 [place] # 0.96 x10EE3/UL Normal 0.20 - 1.00 [facility] Comment on above: Performed By: #### 2 01792 ####[facility],[address] [place] [address] 10342 MONOS % 9.6 % Normal 0.0 - 10.0 [facility] Comment on above: Performed By: #### 2 70082 ####[facility],[address] [place] [address] 56638 Morphology Alvaro (Bld) [Interp] N/A Normal [facility] Comment on above: Performed By: #### 2 96564 ####[facility],[address] [place] [address] 95831 Neut # 8.11 x10EE3/UL High 1.50 - 7.10 [facility] Comment on above: Performed By: #### 2 76805 ####[facility],[address] [place] [address] 94904 Neutrophils/100 WBC (Bld) 80.8 % High 46.0 - 76.0 [facility] Comment on above: Performed By: #### 2 02068 ####[facility],[address] [place] [address] 05067 PLATELET 203 x10EE3/UL Normal 150 - 450 [facility] Comment on above: Performed By: #### 2 09136 ####[facility],[address] [place] [address] 79821 Platelet mean volume (Bld) [Entitic vol] 6.7 fL Normal 6.4 - 10.5 [facility] Comment on above: Result Comment: AUTO MATED DIFFERENTIAL Performed By: #### 2 05816 ####[facility],[address] [place] [address] 94047 RBC 4.36 x 10EE6/UL Low 4.50 - 6.00 [facility] Comment on above: Performed By: #### 2 18836 ####[facility],[address] [place] [address] 65946 WBC 10.0 x 10EE3/UL Normal 4.5 - 10.8 [facility] Comment on above: Performed By: #### 2 21072 ####[facility],[address] [place] [address] 53562 CHEST 1 VIEWon 01-08-2024 CHEST 1 VIEW [place] [address] Patient: BRYN AYON Phone#: : 1945 Age: 78 Gender: M Pt. Type: ER Account: [id number] Location: [facility] Ordering: DR. KRYS BARR Exam Date: 01/08/2024/17:23 Family Phys: Charge Code: [id number] Physician: Charlton Order #: [id number] Dose#: PROCEDURE: X-RAY CHEST 1 VIEW COMPARISON: [facility], XR, CHEST 1 VIEW, 01/02/2022, 13:26. [facility], XR, CHEST 2 VIEWS, 01/08/2022, 9:57. INDICATIONS: Cough. FINDINGS: LUNGS: Subtle hazy ill-defined opacity at the left lung base. Right lung is clear. VASCULATURE: Normal. Unremarkable pulmonary vasculature. CARDIAC: Cardiomegaly. Left chest wall cardiac device with single lead. Stent valve projecting at the cardiac silhouette. MEDIASTINUM: Mediastinal surgical clips present. Aortic arch calcification. PLEURA: Normal. No effusion or pleural thickening. BONES: Median sternotomy wires are present. OTHER: Negative. CONCLUSION: 1. Subtle hazy opacity at the left lung base may represent atelectasis versus developing infiltrate. 2. Cardiomegaly Dictated by: Teresa Garcia MD on 01/08/2024 at 17:59 Approved by: Teresa Garcia MD on 01/08/2024 at 18:02 Normal [facility] CORONAVIRUS (SARS) ANTIGEN T ESTon 01-08-2024 EXTERNAL QC DONE? YES Normal [facility] Comment on above: Performed By: #### 2 57396 #### [facility],[address] [place] [address] INTERNAL CONTROL PASS Normal [facility] Comment on above: Performed By: #### 2 93269 #### [facility],[address] [place] [address] SARS ANTIGEN Negative Normal NORMAL: NEGATIVE [facility] Comment on above: Performed By: #### 2 59420 #### [facility],[address] [place] [address] 55295 SEND TO ? NO Normal [facility] Comment on above: Result Comment: SARS -CoV-2 THIS TEST IS BEING USED UNDER THE FDA EUA PROCEDURE. THIS ASSAY HAS BEEN VALIDATED AT [facility] FOR USE WITH NASAL AND NASOPHARYNGEAL SWAB SPECIMENS. INTERPRETIVE DATA TEST RESULTS SHOULD ALWAYS BE CONSIDERED IN THE CONTEXT OF CLINICAL OBSERVATIONS AND EPIDEMIOLOGICAL DATA IN MAKING FINAL DIAGNOSIS AND PATIENT MANAGEMENT DECISIONS. PATIENT MANAGEMENT SHOULD FOLLOW CURRENT CDC GUIDELINES. THE MIGUELITO SARS ANTIGEN ANDREAS DOES NOT DIFFERENTIATE BETWEEN SARS-CoV & SARS-CoV-2. A POSITIVE TEST RESULT INDICATES THE PRESENCE OF SARS-CoV-2 NUCLEOCAPSID PROTEIN ANTIGEN, AND THE PATIENT IS INFECTED WITH THE VIRUS AND PRESUMED TO BE CONTAGIOUS. A NEGATIVE TEST RESULT FOR THIS TEST MEANS THAT SARS-CoV-2 NUCLEOCAPSID PROTEIN ANTIGEN WAS NOT PRESENT IN THE SPECIMEN ABOVE THE LIMIT OF DETECTION. HOWEVER, A NEGATIVE RESULT DOES NOT RULE OUT COVID-19 AND SHOULD NOT BE USED THE SOLE BASIS FOR TREATMENT OR PATIENT MANAGEMENT DECISIONS. A NEGATIVE RESULT DOES NOT EXCLUDE THE POSSIBILITY OF COVID-19. NEGATIVE RESULTS, FROM PATIENTS WITH SYMPTOM ONSET BEYOND FIVE DAYS, SHOULD BE TREATED PRESUMPTIVE AND CONFIRMATION WITH A MOLECULAR ASSAY, IF NECESSARY, FOR PATIENT MANAGEMENT, MAY BE PERFORMED. WHEN DIAGNOSTIC TESTING IS NEGATIVE, THE POSSIBLILTY OF A FALSE NEGATIVE RESULT SHOULD BE CONSIDERED IN THE CONTEXT OF A PATIENT'S RECENT EXPOSURES AND THE PRESENCE OF CLINICAL SIGNS AND SYMPTOMS CONSISTENT WITH COVID-19. THE POSSIBILITY OF A FALSE NEGATIVE RESULT SHOULD ESPECIALLY BE CONSIDERED IF THE PATIENT'S RECENT EXPOSURES OR CLINICAL PRESENTATION INDICATE THAT COVID-19 IS LIKELY, AND DIAGNOSTIC TESTS FOR OTHER CAUSES OF ILLNESS (e.g., OTHER RESPIRATORY ILLNESS) ARE NEGATIVE. IF COVID-19 IS STILL SUSPECTED BASED ON EXPOSURE HISTORY TOGETHER WITH OTHER CLINICAL FINDINGS, RE-TESTING SHOULD BE CONSIDERED BY HEALTHCARE PROVIDERS IN CONSULTATION WITH PUBLIC HEALTH AUTHORITIES. Performed By: #### 2 77518 #### [address] [address] [address] CHEST (PE PROTOCOL)on CT CHEST (PE PROTOCOL) [place] [address] Patient: BRYN AYON Phone#: : 1945 Age: 78 Gender: M Pt. Type: ER Account: [id number] Location: 010 Ordering: ELIEZER CONSTANTINO Exam Date: 01/08/202421:25 Family Phys: Charge Code: [id number] Physician: Charlton Order #: [id number] Dose#: [id number] PROCEDURE: CT CHEST WITH CONTRAST FOR PE COMPARISON: [facility], CT, CHEST PE W CON, 10/23/2018, 8:30. INDICATIONS: Cough / elevated D-dimer TECHNIQUE: After obtaining the patient's consent, CT images were obtained with non-ionic intravenous contrast material. Multi-planar images were created to optimize visualization of vascular anatomy with MPR/MIPS and 3D imaging. All CT scans at this facility use dose modulation, iterative reconstruction, and/or weight based dosing when appropriate to reduce radiation dose to as low as reasonably achievable. IV CONTRAST: Visipaque 320,58ml TOTAL DOSE: 8.0 CTDIvol(mGy) FINDINGS: VASCULATURE: No pulmonary embolism AORTA: No aortic aneurysm. Atherosclerotic calcifications of the aorta and branch vessels. LUNGS: There are dependent changes. BALTAZAR: Normal. No mass or adenopathy. MEDIASTINUM: Mediastinal surgical clips present. CARDIAC: Coronary artery calcifications. There is a stent at the aortic valve. There is atrial appendage closure device. PLEURA: Normal. No mass or effusion. CHEST WALL: Normal. No mass or axillary adenopathy. LIMITED ABDOMEN: Surgical clips in the gallbladder fossa. BONES: Median sternotomy wires are present. OTHER: There is a nodule in the right lobe of the thyroid measuring 1.0 x 1.3 cm. CONCLUSION: 1. No pulmonary embolism. No acute pulmonary parenchymal abnormality 2. Right thyroid nodule, recommend dedicated thyroid ultrasound for further characterization. [place] [address] Patient: BRYN AYON Phone#: : 1945 Age: 78 Gender: M Pt. Type: ER Account: [id number] Location: 010 Ordering: ELIEZER CONSTANTINO Exam Date: 01/08/2024/21:25 Family Phys: Charge Code: [id number] Physician: Charlton Order #: [id number] Dose#: 8 Dictated by: Teresa Garcia MD on 01/09/2024 at 11:11 Approved by: Teresa Garcia MD on 01/09/2024 at 11:19 Normal [facility] D-DIMER, QUANTITATIVEon 12-19 D-DIMER QUANT 1039 ng/ml High 0 - 230 [facility] Comment on above: Performed By: #### 2 82274 #### [facility],[address] [place], [place] [id number] D-DIMER, QUANTITATIVE Normal [facility] Comment on above: Result Comment: TREVOR T D-DIMER Performed By: #### 2 59565 #### [facility],[address] [place] [address] INFLUENZA VIRUS RAPID A/Bon 01-08-2024 INFLUENZA VIRUS RAPID A/B INFLUENZA A NEGATIVE INFLUENZA B NEGATIVE INTERNAL NEG QC PASS INTERNAL POS QC PASS EXTERNAL QC DONE? YES SEND TO IC? NO A NEGATIVE TEST RESULT DOES NOT EXCLUDE INFECTION WITH INFLUENZA A OR B. THEREFORE, THE RESULTS OBTAINED FROM THIS FLU TEST SHOULD BE USED IN CONJUCTION WITH CLINICAL FINDINGS TO MAKE AN ACCURATE DIAGNOSIS. A POSITIVE RESULT DOES NOT RULE OUT CO-INFECTIONS WITH OTHER PATHOGENS OR IDENTIFY ANY SPECIFIC INFLUENZA A VIRUS SUBTYPE.CO-INFECTION WITH INFLUENZA A AND B IS RARE. IT IS RECOMMENDED THAT DUAL POSITIVE RESULTS BE CONFIRMED BY VIRAL CULTURE OR AN FDA-CLEARED INFLUENZA A AND B MOLECULAR ASSAY. INDIVIDUALS WHO HAVE RECEIVED NASALLY ADMINISTERED INFLUENZA A VACCINE MAY TEST POSITIVE IN COMMERCIALLY AVAILABLE INFLUENZA RAPID DIAGNOSTIC TESTS FOR UP TO THREE DAYS. RESULT CRITICAL? NO Normal [facility] Comment on above: Performed By: #### 2 74869 ####[facility],[address] [place], [place] [id number] LACTATEon 01-08-2024 Lactate [Moles/Vol] 0.8 mmol/L Normal 0.4 - 2.0 [facility] Comment on above: Performed By: #### 2 45351 #### [facility],[address] [place], [place] [id number] NT-proBNPon 01-08-2024 Natriuretic peptide B (Bld) [Mass/Vol] 3150 pg/mL High 0 - 450 [facility] Comment on above: Performed By: #### 2 64238 #### [facility],[address] [place] [address] 41184 TROPONINon 01-08-2024 HS TROPONIN 33.3 pg/mL Normal 0.0 - 76.2 [facility] Comment on above: Performed By: #### 2 87812 #### [facility],[address] [place] [address] 78560 FACILITY CODING SUMMARYon FACILITY CODING SUMMARY Facility Coding Facility Coding Summary [address] [address] [id number] 11/27/2023 Patient: BRYN AYON Sex: Male : 1945 Age: 78y Providers: Bryn Rosen D.O. DIAGNOSTIC WORKUP Chief Complaint Injury to right hand and right wrist. -- Bryn Rosen D.O. Principal Diagnosis Multiple superficial abrasions to the right wrist and right hand. -- Bryn Rosen D.O. Multiple superficial skin avulsions of the right wrist and of the right hand.No foreign body present. -- Bryn Rosen D.O. ICD-10 Codes S60.511A: Abrasion of right hand, initial encounter S60.811A: Abrasion of right wrist, initial encounter S61.501A: Unspecified open wound of right wrist, initial encounter PROCEDURES Procedures from Providers: Splint - Short Arm (CPT: 08171-ES) -- Bryn Rosen D.O. Procedures from Nurses/Facility: Splint - Short Arm (CPT: 66867-MO) 1 of 2 Facility Coding SUPPLIES [facility] 16293-53 This is a partial abstract of information documented in the full record. C Unix Developer must use independent judgment in selecting codes. CPT copyright 2022 [employer]. All Rights Reserved. 2 of 2 Normal [facility] MED ADMINISTRATION DETAILon 11-27-2023 MED ADMINISTRATION DETAIL Signals Intelligence Analyst Medication Administration Record [address] [address] [id number] 11/27/2023 Patient: BRYN AYON [facility]#: [id number] Sex: Male : 1945 Age: 78y MEASUREMENTS: Wt: 89.8 kg, Ht/Hector: 69.0 in, BMI: 29.24 ALLERGIES: No known drug allergies Medication Ordered Medication Administration Date/Time 1 of 1 Normal [facility] NURSES CLINICAL REPORT (NOTE S)on 11-27-2023 NURSES CLINICAL REPORT (NOTES) Nurse Narrative Nurse Clinical Narrative [address] [address] [id number] 11/27/2023 [id number] Sex[facility] Male : 1945 Age: 78y Disposition: Discharge to Home Disposition Decision Time: 12:34 11/27/2023 Departure Time: 12:52 11/27/2023 TRIAGE Arrived by private vehicle. Historian: patient. ( kuldeep snapped back while working and cut his right hand and wrist). Triage time: 11:18 11/27/2023. Acuity: LEVEL 3. Chief Complaint: INJURY TO RIGHT HAND and INJURY TO RIGHT WRIST. Occurred 17:00 11/26/2023. The patient sustained a laceration (pliers). SEPSIS SCREEN: NEGATIVE. SIRS criteria negative. No possible sources of infection. (11:28 11/27/2023). -- 11:31 11/27/23 EDCynthia Rodriguez R.N. 11:26 11/27/23. BP: 132/64 MAP: 87. HR: 45. RR: 16. O2 saturation: 95% Temperature: 98.6 F (oral). Pain level now 0/10. -- 11:27 11/27/23 YOUSUF Rodriguez R.N. Measurements: 11:25 11/27/23 Wt: 89.8 kg, Ht/Hector: 69.0 in, BMI: 29.24 -- 11:25 11/27/23 YOUSUF Rodriguez R.N. Medications: unable to obtain home medications -- 11:20 11/27/23 EDT Willy Rodriguez R.N. 1 of 4 Nurse Narrative Allergies: no known drug allergies -- 11:20 11/27/23 SUKHWINDERT Willy Rodriguez R.N. Problems: Diabetes Mellitus -- 11:21 11/27/23 YOUSUF Rodriguez R.N. Chronic kidney disease stage 3 -- 11:21 11/27/23 SUKHWINDERT Willy Rodriguez R.N. Coronary artery bypass grafts x 3 (procedure): Active -- 11:22 11/27/23 YOUSUF Rodriguez R.N. Coronary Artery Disease -- 11:22 11/27/23 SUKHWINDERT Willy Rodriguez R.N. Essential Hypertension -- 11:11/27/23 SUKHWINDERT Willy Rodriguez R.N. COPD - Chronic Obstructive Pulmonary Disease -- 11:22 11/27/23 SUKHWINDERT Willy Rodriguez R.N. 11:18 11/27/23. Preferred pharmacy: [facility]. -- 11:31 11/27/23 YOUSUF Rodriguez R.N. ADDITIONAL SURGERIES: Catheterization of left heart -- 11:23 11/27/23 YOUSUF Rodriguez R.N. Implantation of automatic cardiac defibrillator -- 11:23 11/27/23 YOUSUF Rodriguez R.N. Coronary artery bypass grafts x 3 -- 11:24 11/27/23 SUKHWINDERT Willy Rodriguez R.N. Cholecystectomy -- 11:24 11/27/23 YOUSUF Rodriguez R.N. Pacemaker -- 11:24 11/27/23 SUKHWINDERT Willy Rodriguez R.N. History 11:18 11/27/23. PAST MEDICAL HX: Tetanus status: up-to-date. Immunizations: up-to-date. SOCIAL HX: Former smoker. No alcohol use or drug use. ABUSE ASSESSMENT: The patient answered yes to the question(s) Do you feel safe in your home? and no to the question(s) Are you afraid to go home?. Abuse denied. No suspicion of abuse. SELF HARM ASSESSMENT: Self harm assessment was performed. The patient answered no to the question(s) Do you have thoughts of harming or killing yourself? and Do you have a plan for harming or killing 2 of 4 Nurse Narrative yourself?. FALL RISK ASSESSMENT: Fall risk assessment completed. Risk factors identified include patient age greater than 65 years. -- 11:31 11/27/23 YOUSUF Rodriguez R.N. 11:18 11/27/23. SOCIAL HX: The patient has not traveled outside the [place] Infectious disease exposure: No infectious disease exposure. -- 11:32 11/27/23 EDT Willy Rodriguez R.N. Interventions 11:18 11/27/23. Identification band on patient. Advanced care plan discussed with patient. Patient has a medical power of attorney law clerk (nedra ayon). Provided by patient. -- 11:31 11/27/23 EDT Willy Rodriguez R.N. 11:18 11/27/23. To waiting room. Ambulatory. Notify nurse if condition changes or pain increases. informed of rounding procedures, pt verbalized understanding. -- 11:34 11/27/23 YOUSUF Rodriguez R.N. PHYSICAL ASSESSMENT 12:38 11/27/23. Ambulatory to room. EXTREMITIES: Capillary refill is less than 2 seconds in the extremities and extremities. Extremity pulses are within normal limits and limits. Extremities exhibit normal ROM and ROM. No motor deficit in the extremities. Sensation intact. No upper extremity edema. No lower extremity edema. Normal gait. SKIN: The patient has multiple small superficial abrasions on the right forearm and right wrist. Skin is warm and dry. The patient has an abrasion. ( Small abrasions and skin tears to right forearm and wrist.). -- 12:38 11/27/23 EDCynthia Epstein R.N. NURSING PROGRESS NOTES 12:38 11/27/23. Call light placed in reach. Patient placed in chair. Brakes of chair on. -- 12:38 11/27/23 YOUSUF Epstein R.N. 12:44 11/27/23. SPLINT APPLIED: OCL splint applied to right forearm. Splinting applied by ED physician. -- 12:44 11/27/23 YOUSUF Epstein R.N. 12:45 11/27/23. SPLINT APPLIED: Short arm OCL splint applied to right forearm. Distal pulses intact, sensation intact and motor within normal limits. Patient tolerated the procedure well. Splinting applied by ED physician. -- 12:45 11/27/23 EDT Dash Epstein R.N. DISPOSITION / DISCHARGE 3 of 4 Nu (more content not included)... Normal [facility] ORDER SHEET (CPOE ONLY)on ORDER SHEET (CPOE ONLY) Order Sheet Order Sheet [address] [address] [id number] 11/27/2023 Patient: BRYN AYON Sex: Male : 1945 Age: 78y MEASUREMENTS: Wt: 89.8 kg, Ht/Hector: 69.0 in, BMI: 29.24 ALLERGIES: No known drug allergies MEDICATION/IV/DRIP/FL UID ORDERS Order Description Priority Entered Acknowledged Completed Triple Antibiotic Oint 11:56 11/27/2023 12:04 ([id number] B)1 applic Bryn Rosen 11/27/2023 (NOW x1) Laura Epstein R.N. LAB ORDERS Order Description Priority Entered Acknowledged Collected Completed DIAGNOSTIC STUDY ORDERS Order Description Priority Entered Acknowledged Completed STAFF ORDERS Order Description Priority Entered Acknowledged Collected Completed [Electronically signed by Byrn Rosen D.O. (11/27/2023 20:28 EDT)] 1 of 1 Normal [facility] PHYS CLINICAL REPORT AND ADD ENon 11-27-2023 PHYS CLINICAL REPORT AND ADDEN Narrative Physician Clinical Narrative [address] [address] [id number] 11/27/2023 Patient: BRYN AYON Sex: Male : 1945 Age: 78y Disposition: Discharge to Home Disposition Decision Time: 12:34 11/27/2023 Departure Time: 12:52 11/27/2023 Measurements Wt: 89.8 kg, Ht/Hector: 69.0 in, BMI: 29.24 Initial Vital Sign Measured Time BP MAP HR RR O2Sat ETCO2 Temp Pain GCS RTS 11:26 11/27/2023 132/64 87 45 16 95% 98.6 F 0 Time Seen: 11:34 11/27/2023. Arrived- By private vehicle. Historian- patient. HISTORY OF PRESENT ILLNESS Chief Complaint: Injury to right hand and right wrist. The injury happened yesterday. Occurred at home. The patient sustained a direct blow. Patient is experiencing mild pain. REVIEW OF SYSTEMS SKIN: The patient sustained a laceration. NEUROLOGICAL: No tingling, numbness or weakness. MUSCULOSKELETAL: The patient has had swelling. 1 of 4 Narrative PAST HISTORY Chronic kidney disease stage 3 COPD - Chronic Obstructive Pulmonary Disease Coronary artery bypass grafts x 3 (procedure): [Active] Coronary Artery Disease Diabetes Mellitus Essential Hypertension Surgeries: Catheterization of left heart Cholecystectomy Coronary artery bypass grafts x 3 Implantation of automatic cardiac defibrillator Pacemaker Medications: unable to obtain home medications Allergies: no known drug allergies SOCIAL HISTORY No drug use. No recent travel. ADDITIONAL NOTES The nursing notes have been reviewed. PHYSICAL EXAM Head: Head atraumatic. Eyes: Pupils equal, round and reactive to light. ENT: Ears normal. Neck: Normal inspection. CVS: Normal heart rate. 2 of 4 Narrative Respiratory: No respiratory distress. Breath sounds normal. Abdomen: No visible injury. Back: Normal inspection. Extremities: Right wrist: mild tenderness and swelling, small abrasion with controlled bleeding and subcutaneous avulsion. Neuro, Vascular and Tendons: Vascular status intact. Sensation intact. Motor intact. Neuro: Oriented X 3. No motor deficit. PROGRESS AND PROCEDURES Splint Application: Time: 13:25 11/27/2023. Short arm OCL splint applied to right hand and wrist. Reassessed extremity following splint application. Neurovascular intact. Splinting applied by me with direct supervision by me and ED physician. MEDICAL DECISION MAKING: (patient came in he got hit with an object on his right wrist hand area which she had very thin skin he had bleeding to this yesterday tried to keep it from bleeding however would persist and he want to get it checked he came in. Had no obvious active bleeding at this time we did place a dressing on it I did place a splint so he could not move it he tolerated procedure well. He was told to keep it clean and dry return if any problems or concerns). Disposition: Condition: good. Discharged in fair condition. Discharge decision based on the following: patient's condition is stable; patient's exam is improved. CLINICAL IMPRESSION Multiple superficial abrasions to the right wrist and right hand. Multiple superficial skin avulsions of the right wrist and of the right hand.No foreign body present. DISCHARGE INSTRUCTIONS Wear splint. Protect wound and keep wound area clean. Limit use of your hand. Follow-up with: Jade Latham MD, [facility], Internal Medicine, , [address], [place] [address]. Follow up in five days. Call for an appointment. (keep clean and dry. watch for signs of infection (red hot pain)). (Electronically signed by Bryn Rosen D.O. 11/27/23 20:28:43 EDT) 3 of 4 Narrative Generated by [facility] 4 of 4 [facility] PHYS CODING SUMMARY CAFETERIA MANAGER AB [facility] 11-27-2023 PHYS CODING SUMMARY CAFETERIA MANAGER ABST Coding Summary Coding Summary [address] [place] [address] [id number] 11/27/2023 Patient: BRYN AYON Sex: Male : 1945 Age: 78y ICD-10 Codes S60.811A: Abrasion of right wrist, initial encounter S60.511A: Abrasion of right hand, initial encounter S61.501A: Unspecified open wound of right wrist, initial encounter CPT Codes Splint - Short Arm (CPT: 37686-OA) This is a partial abstract of information documented in the full record. C Unix Developer must use independent judgment in selecting codes. CPT copyright 2022 [employer]. All Rights Reserved. 1 of 1 [facility] [address] [place] [address] [id number] 11/27/2023 Patient: BRYN AYON Sex: Male : 1945 Age: 78y Item Facility Professional Category Description Code Code Quantity Fee Total Nurse/E/M EMERGENCY 405183 1 $0.00 $0.00 DEPARTMENT VISIT MODERATE SEVERITY (48262-90) Physician/Procedures Splint - Short [id number] 1 $0.00 $0.00 Arm (89184-BI) Grand Total $0.00 Providers Bryn Rosen D.O. Chief Complaint Injury to right hand and right wrist. Principal Diagnosis 1 of 2 Superbill Multiple superficial abrasions to the right wrist and right hand. Multiple superficial skin avulsions of the right wrist and of the right hand.No foreign body present. ICD-10 Codes S60.811A: Abrasion of right wrist, initial encounter S60.511A: Abrasion of right hand, initial encounter S61.501A: Unspecified open wound of right wrist, initial encounter 2 of 2 Normal [facility] VISIT SUMMARYon 11-27-2023 VISIT SUMMARY Visit Overview Visit Overview [address] [place] [address] [id number] 11/27/2023 Patient: BRYN AYON Sex: Male : 1945 Age: 78y 11/27/2023 08:28 PM EDT ED Arrival:11:09 11/27/2023 EDT Status: Recent Travel:no Language:eng Adv Directive:Yes Isolation Status: Ethnicity:N Fall Risk:risk Infectious Disease Exposure:no Measurements:5'9 / 175.3 Self-Harm Status:risk Sepsis Screen:negative cm 198.0 lb / 89.8 kg Chief Complaint:INJURY TO RIGHT HAND, INJURY TO RIGHT WRIST, (11:28 11/27/2023), (17:00 11/26/2023), (pliers snapped back while working and cut his right hand and wrist), and (pliers) ALLERGIES No Known Drug Allergies HOME MEDICATIONS Unable To Obtain 1 of 3 Visit Overview PAST MEDICAL HISTORY / PROBLEMS Chronic kidney disease stage 3 COPD - Chronic Obstructive Pulmonary Disease Coronary artery bypass grafts x 3 (procedure): Active Coronary Artery Disease Diabetes Mellitus Essential Hypertension Immunizations: up-to-date Tetanus status: up-to-date Tetanus status: up-to-date PAST SURGICAL HISTORY Catheterization of left heart Cholecystectomy Coronary artery bypass grafts x 3 Implantation of automatic cardiac defibrillator Pacemaker SOCIAL HISTORY Smoking status: No Alcohol use: No Drug use: No ED COURSE MEDICATIONS GIVEN IN EMERGENCY DEPARTMENT IV SITE INFORMATION INTAKE OUTPUT REASSESMENT (most recent) 2 of 3 Visit Overview 12:38 11/27/23. Ambulatory to room. EXTREMITIES: Capillary refill is less than 2 seconds in the extremities and extremities. Extremity pulses are within normal limits and limits. Extremities exhibit normal ROM and ROM. No motor deficit in the extremities. Sensation intact. No upper extremity edema. No lower extremity edema. Normal gait. SKIN: The patient has multiple small superficial abrasions on the right forearm and right wrist. Skin is warm and dry. The patient has an abrasion. ( Small abrasions and skin tears to right forearm and wrist.). VITAL SIGNS First Vitals Last Vitals Temp 11:26 11/27/23 98.6 F Temp 12:52 11/27/23 97.9 F BP 11:26 11/27/23 132/64 BP 12:52 11/27/23 130/80 HR 11:26 11/27/23 45 HR 12:52 11/27/23 76 RR 11:26 11/27/23 16 RR 12:52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 Electrolyte Balance 5.0 mEq/L Normal 4.0-15.0 [facility] ([place]) Comment on above: Performed By: #### L IPID, GFR, ADIFF, CBC, BMP, ANEU, A1C #### [address] [address] Glucose [Mass/Vol] 124 mg/dL High 82-115 [facility] ([place]) Comment on above: Performed By: #### L IPID, GFR, ADIFF, CBC, BMP, ANEU, A1C #### [address] [address] Potassium [Moles/Vol] 4.3 mmol/L Normal 3.5-5.0 [facility] ([place]) Comment on above: Result Comment: Spec imen slightly hemolyzed. Performed By: #### L IPID, GFR, ADIFF, CBC, BMP, ANEU, A1C #### [place] [id number] Sodium [Moles/Vol] 144 mmol/L Normal 136-145 [facility] ([place]) Comment on above: Performed By: #### L IPID, GFR, ADIFF, CBC, BMP, ANEU, A1C #### [address] [address] Urea nitrogen [Mass/Vol] 28.0 mg/dL High 8.0-22.0 [facility] ([place]) Comment on above: Performed By: #### L IPID, GFR, ADIFF, CBC, BMP, ANEU, A1C #### [address] [address] CBCon 03-03-2022 Erythrocyte distribution width (RBC) [Ratio] 15.1 % Normal 11.5-15.5 [facility] ([place]) Comment on above: Performed By: #### L IPID, GFR, ADIFF, CBC, BMP, ANEU, A1C #### [place] [id number] Hematocrit (Bld) [Volume fraction] 33.8 % Low 40.0-52.0 [facility] ([place]) Comment on above: Performed By: #### L IPID, GFR, ADIFF, CBC, BMP, ANEU, A1C #### [place] [id number] Hgb 11.4 G/dL Low 13.0-17.5 [facility] ([place]) Comment on above: Performed By: #### L IPID, GFR, ADIFF, CBC, BMP, ANEU, A1C #### [place] [address] MCH (RBC) [Entitic mass] 31.5 pg Normal 27.0-33.0 [facility] ([place]) Comment on above: Performed By: #### L IPID, GFR, ADIFF, CBC, BMP, ANEU, A1C #### [place] [address] MCHC 33.7 G/dL Normal 32.0-36.0 [facility] ([place]) Comment on above: Performed By: #### L IPID, GFR, ADIFF, CBC, BMP, ANEU, A1C #### [place] [address] MCV (RBC) [Entitic vol] 93.4 fL Normal 81.0-100.0 [facility] ([place]) Comment on above: Performed By: #### L IPID, GFR, ADIFF, CBC, BMP, ANEU, A1C #### [place] [address] Platelet 169 10 3/mcL Normal 150-450 [facility] ([place]) Comment on above: Performed By: #### L IPID, GFR, ADIFF, CBC, BMP, ANEU, A1C #### [place] [address] Platelet mean volume (Bld) [Entitic vol] 7.2 fL Normal 6.4-10.5 [facility] ([place]) Comment on above: Performed By: #### L IPID, GFR, ADIFF, CBC, BMP, ANEU, A1C #### [place] [address] RBC 3.62 10 6/mcL Low 4.50-6.00 [facility] ([place]) Comment on above: Performed By: #### L IPID, GFR, ADIFF, CBC, BMP, ANEU, A1C #### [place] [address] WBC 8.9 10 3/mcL Normal 4.5-10.8 [facility] ([place]) Comment on above: Performed By: #### L IPID, GFR, ADIFF, CBC, BMP, ANEU, A1C #### [address] [address] Erythrocyte distribution width (RBC) [Ratio] 15.1 % Normal 11.5-15.5 [facility] ([place]) Comment on above: Performed By: #### L IPID, GFR, ADIFF, CBC, BMP, ANEU, A1C #### [place] [id number] Hematocrit (Bld) [Volume fraction] 36.1 % Low 40.0-52.0 [facility] ([place]) Comment on above: Performed By: #### L IPID, GFR, ADIFF, CBC, BMP, ANEU, A1C #### [place] [id number] Hgb 12.2 G/dL Low 13.0-17.5 [facility] ([place]) Comment on above: Performed By: #### L IPID, GFR, ADIFF, CBC, BMP, ANEU, A1C #### [place] [id number] MCH (RBC) [Entitic mass] 31.4 pg Normal 27.0-33.0 [facility] ([place]) Comment on above: Performed By: #### L IPID, GFR, ADIFF, CBC, BMP, ANEU, A1C #### [place] [id number] MCHC 33.9 G/dL Normal 32.0-36.0 [facility] ([place]) Comment on above: Performed By: #### L IPID, GFR, ADIFF, CBC, BMP, ANEU, A1C #### [place] [id number] MCV (RBC) [Entitic vol] 92.8 fL Normal 81.0-100.0 [facility] ([place] Comment on above: Performed By: #### L IPID, GFR, ADIFF, CBC, BMP, ANEU, A1C #### [address] [address] Platelet 198 10 3/mcL Normal 150-450 [facility] ([place]) Comment on above: Performed By: #### L IPID, GFR, ADIFF, CBC, BMP, ANEU, A1C #### [place] [address] Platelet mean volume (Bld) [Entitic vol] 7.1 fL Normal 6.4-10.5 [facility] ([place]) Comment on above: Performed By: #### L IPID, GFR, ADIFF, CBC, BMP, ANEU, A1C #### [place] [address] RBC 3.89 10 6/mcL Low 4.50-6.00 [facility] ([place]) Comment on above: Performed By: #### L IPID, GFR, ADIFF, CBC, BMP, ANEU, A1C #### [place] [address] WBC 9.9 10 3/mcL Normal 4.5-10.8 [facility] ([place]) Comment on above: Performed By: #### L IPID, GFR, ADIFF, CBC, BMP, ANEU, A1C #### [place] [address] CKon 03-03-2022 CK [Catalytic activity/Vol] 157 U/L Normal 7-185 [facility] ([place]) Comment on above: Performed By: #### L IPID, GFR, ADIFF, CBC, BMP, ANEU, A1C #### [place] [address] CMPon 03-03-2022 Albumin Level 3.5 G/dL Normal 3.2-4.8 [facility] ([place]) Comment on above: Performed By: #### L IPID, GFR, ADIFF, CBC, BMP, ANEU, A1C #### [place] [address] Albumin/Globulin [Mass ratio] 1.5 {ratio} Normal 0.9-1.6 [facility] ([place]) Comment on above: Performed By: #### L IPID, GFR, ADIFF, CBC, BMP, ANEU, A1C #### [address] [address] ALP [Catalytic activity/Vol] 89 U/L Normal 38-126 [facility] ([place]) Comment on above: Performed By: #### L IPID, GFR, ADIFF, CBC, BMP, ANEU, A1C #### [address] [address] ALT [Catalytic activity/Vol] 15 U/L Normal 12-55 [facility] ([place]) Comment on above: Performed By: #### L IPID, GFR, ADIFF, CBC, BMP, ANEU, A1C #### [address] [address] AST [Catalytic activity/Vol] 18 U/L Normal 8-34 [facility] ([place]) Comment on above: Performed By: #### L IPID, GFR, ADIFF, CBC, BMP, ANEU, A1C #### [place] [id number] Bili Total 0.80 mg/dL Normal 0.20-1.20 [facility] ([place]) Comment on above: Result Comment: Use of this assay is not recommended for patients undergoing treatment with eltrombopag due to the potential for falsely elevated results. Performed By: #### L IPID, GFR, ADIFF, CBC, BMP, ANEU, A1C #### [place] [id number] BUN/Creatinine Ratio 19.0 ratio Normal 10.0-22.0 [facility] ([place]) Comment on above: Performed By: #### L IPID, GFR, ADIFF, CBC, BMP, ANEU, A1C #### [address] [address] Calcium [Mass/Vol] 8.6 mg/dL Low 8.7-10.4 [facility] ([place]) Comment on above: Performed By: #### L IPID, GFR, ADIFF, CBC, BMP, ANEU, A1C #### [place] [id number] Chloride [Moles/Vol] 108 mmol/L Normal 98-110 [facility] ([place]) Comment on above: Performed By: #### L IPID, GFR, ADIFF, CBC, BMP, ANEU, A1C #### [address] [address] CO2 [Moles/Vol] 31 mmol/L Normal 22-32 [facility] ([place]) Comment on above: Performed By: #### L IPID, GFR, ADIFF, CBC, BMP, ANEU, A1C #### [address] [address] Creatinine [Mass/Vol] 1.53 mg/dL High 0.60-1.40 [facility] ([place]) Comment on above: Performed By: #### L IPID, GFR, ADIFF, CBC, BMP, ANEU, A1C #### [address] [address] Electrolyte Balance 4.0 mEq/L Normal 4.0-15.0 [facility] ([place]) Comment on above: Performed By: #### L IPID, GFR, ADIFF, CBC, BMP, ANEU, A1C #### [place] [id number] Globulin 2.4 G/dL Normal 1.5-3.8 [facility] ([place]) Comment on above: Performed By: #### L IPID, GFR, ADIFF, CBC, BMP, ANEU, A1C #### [address] [address] Glucose [Mass/Vol] 182 mg/dL High 82-115 [facility] ([place]) Comment on above: Performed By: #### L IPID, GFR, ADIFF, CBC, BMP, ANEU, A1C #### [address] [address] Potassium [Moles/Vol] 4.8 mmol/L Normal 3.5-5.0 [facility] ([place]) Comment on above: Performed By: #### L IPID, GFR, ADIFF, CBC, BMP, ANEU, A1C #### [address] [address] Sodium [Moles/Vol] 143 mmol/L Normal 136-145 [facility] ([place]) Comment on above: Performed By: #### L IPID, GFR, ADIFF, CBC, BMP, ANEU, A1C #### [place] [id number] Total Protein 5.9 G/dL Normal 5.7-8.2 [facility] ([place]) Comment on above: Result Comment: No te - New Reference Range in effect 19 Performed By: #### L IPID, GFR, ADIFF, CBC, BMP, ANEU, A1C #### [place] [address] Urea nitrogen [Mass/Vol] 29.0 mg/dL High 8.0-22.0 [facility] ([place]) Comment on above: Performed By: #### L IPID, GFR, ADIFF, CBC, BMP, ANEU, A1C #### [place] [address] FIBon 03-03-2022 Fibrinogen 659 mg/dL High 250-560 [facility] ([place]) Comment on above: Performed By: #### L IPID, GFR, ADIFF, CBC, BMP, ANEU, A1C #### [place] [address] HHon 03-03-2022 Hematocrit (Bld) [Volume fraction] 36.8 % Low 40.0-52.0 [facility] ([place]) Comment on above: Performed By: #### H H #### [place] [address] Hgb 12.3 G/dL Low 13.0-17.5 [facility] ([place]) Comment on above: Performed By: #### H H #### [place] [address] Hematocrit (Bld) [Volume fraction] 36.9 % Low 40.0-52.0 [facility] ([place] Comment on above: Performed By: #### L IPID, GFR, ADIFF, CBC, BMP, ANEU, A1C #### [place] [address] Hgb 12.1 G/dL Low 13.0-17.5 [facility] ([place]) Comment on above: Performed By: #### L IPID, GFR, ADIFF, CBC, BMP, ANEU, A1C #### [address] [address] LIPIDon 03-03-2022 Cholesterol [Mass/Vol] 100 mg/dL Normal 50-199 [facility] ([place] Comment on above: Result Comment: Chol esterol Reference Interval: Less than 200 Desirable 200-239 Borderline high risk 240 and above High risk Performed By: #### L IPID, GFR, ADIFF, CBC, BMP, ANEU, A1C #### [place] [address] Cholesterol in HDL [Mass/Vol] 30 mg/dL Low 40-59 [facility] ([place]) Comment on above: Performed By: #### L IPID, GFR, ADIFF, CBC, BMP, ANEU, A1C #### [place] [address] Cholesterol in LDL [Mass/Vol] 51 mg/dL Normal 0-129 [facility] ([place]) Comment on above: Performed By: #### L IPID, GFR, ADIFF, CBC, BMP, ANEU, A1C #### [place] [address] Triglyceride [Mass/Vol] 93 mg/dL Normal 3-149 [facility] ([place]) Comment on above: Performed By: #### L IPID, GFR, ADIFF, CBC, BMP, ANEU, A1C #### [place] [address] MYOSon 03-03-2022 Myoglobin [Mass/Vol] 229.7 ng/mL High 3.0-110.0 [facility] ([place]) Comment on above: Result Comment: No te - New Reference Range in effect 19 Performed By: #### L IPID, GFR, ADIFF, CBC, BMP, ANEU, A1C #### [address] [address] PROon 03-03-2022 INR Coag (PPP) [Relative time] 1.5 {INR} Normal [facility] ([place]) Comment on above: Result Comment: The [employer] (CHEST, 1992, [id number]) recommended therapeutic range for oral anticoagulant therapy is: LOW RISK: Prophylaxis of venous thrombosis INR: 2.0-3.0 Treatment of pulmonary embolism 2.0-3.0 Prevention of systemic embolism 2.0-3.0 HIGH RISK: Mechanical prosthetic valves 2.5-3.5 Performed By: #### L IPID, GFR, ADIFF, CBC, BMP, ANEU, A1C #### [address] [address] PT Coag (PPP) [Time] 18.0 s High 9.0-14.9 [facility] ([place]) Comment on above: Result Comment: Effe ctive 09/01/07, Protime results may be affected by some antibiotics (i.e. Ciprofloxacin, Azithromycin, Bactrim) which may potentiate the action of oral anticoagulants, with further increase in Protime/INR. Performed By: #### L IPID, GFR, ADIFF, CBC, BMP, ANEU, A1C #### [place] [id number] UAon 03-03-2022 Color (U) Yellow Normal [facility] ([place]) Comment on above: Performed By: #### A ROXANA #### [place] [id number] Glucose (U) [Mass/Vol] Negative Normal Negative [facility] ([place]) Comment on above: Performed By: #### A SHAKIR SCHMIDT #### [place] [id number] Ketones Ql (U) Negative Normal Neg-Trace [facility] ([place] Comment on above: Performed By: #### A ROXANA #### [address] [address] UA Appear Clear Normal Clear [facility] ([place] Comment on above: Performed By: #### A ROXANA #### [address] [address] UA Blood Negative Normal Neg-Trace [facility] ([place] Comment on above: Performed By: #### A ROXANA #### [place] [address] [address] UA Leuk Est Negative Normal Negative [facility] ([place] Comment on above: Performed By: #### A ROXANA, #### [address] [address] UA Nitrite Negative Normal Negative [facility] ([place] Comment on above: Performed By: #### A ROXANA, HH #### [place] [address] UA pH 5.5 Normal 5.0 - 8.0 [facility] ([place] Comment on above: Performed By: #### A ROXANA HH #### [address] [address] UA Protein Trace Normal Negative [facility] ([place] Comment on above: Performed By: #### A SHAKIR SCHMIDT #### [place] [address] UA Spec Grav >=1.030 Abnormal 1.006-1.029 [facility] ([place] Comment on above: Performed By: #### A ROXANA #### [place] [address] UA Specimen Type Clean Catch Normal [facility] ([place] Comment on above: Performed By: #### A ROXANA, #### [place] [address] UA Urobilinogen 1.0 E.U./dL Normal 0.2-1.0 [facility] ([place]) Comment on above: Performed By: #### A ROXANA, SHAKIR #### [place] [address] Urobilinogen (U) [Mass/Vol] Negative Normal Neg-Trace [facility] ([place]) Comment on above: Performed By: #### A SHAKIR SCHMIDT #### [place] [address] Von 03-02-2022 Ethanol Level <10.0 Normal [facility] ([place]) Comment on above: Performed By: #### A SHAKIR SCHMIDT #### [place] [address] HHon 03-02-2022 Hematocrit (Bld) [Volume fraction] 35.7 % Low 40.0-52.0 [facility] ([place]) Comment on above: Performed By: #### A ROXANA, SHAKIR #### [address] [id number] Hgb 12.1 G/dL Low 13.0-17.5 [facility] ([place]) Comment on above: Performed By: #### A ROXANA, SHAKIR #### [address] [id number] Glucose Glucometer (BldC) [M ass/Vol]on 06-13-2021 Glucose [Mass/Vol] 225 mg/dL 74-106 [facility] Work Phone: Comment on above: MANAGEMENT OF PATIEN T CARE PER NURSING PROTOCOL Absolute lymphocyte counton 06-12-2021 Lymphocytes Auto (Unsp spec) [#/Vol] 1.23 10*3/uL 0.83-4.51 [facility] Work Phone: Basophil percentageon 2021 Basophils/100 WBC (Bld) 0.1 % 0-1 [facility] Work Phone: Chloride [Moles/Vol] 97 mmol/L 98-107 [facility] Work Phone: Eosinophils/100 WBC (Bld) 0.2 % 0-5 [facility] Work Phone: Glucose [Mass/Vol] 266 mg/dL 74-106 [facility] Work Phone: Comment on above: Glucose result great er than or equal to 200 mg/dLsuggests DIABETES MELLITUS per A.D.A. criteria. Neutrophils (Bld) [#/Vol] 12.8 10*3/uL 2.0-7.7 [facility] Work Phone: [phone] Neutrophils/100 WBC (Bld) 81.9 % 47-70 [facility] Work Phone: Potassium [Moles/Vol] 4.2 mmol/L 3.5-5.1 [facility] [place] Work Phone: Sodium [Moles/Vol] 135 mmol/L 136-145 [facility] Work Phone: WBC (Bld) [#/Vol] 15.6 10*3/uL 4.4-11.0 [facility] Work Phone: Blood erythrocytes count (nu mber/volume)on 06-12-2021 RBC (Bld) [#/Vol] 3.97 10*6/uL 4.6-6.2 [facility] Work Phone: Blood hemoglobin measurement (mass/volume)on 06-12-2021 Hemoglobin (Bld) [Mass/Vol] 12.1 g/dL 13.0-16.5 [facility] Work Phone: Blood lymphocytes/100 leukoc yteson 06-12-2021 Lymphocytes/100 WBC (Bld) 7.9 % 19-41 [facility] Work Phone: Blood monocytes/100 leukocyt eson 06-12-2021 Monocytes/100 WBC (Bld) 8.2 % 0-10 [facility] Work Phone: Blood platelet mean volumeon 06-12-2021 Platelet mean volume (Bld) [Entitic vol] 9.1 fL 6.2-12.0 [facility] Work Phone: Determination of erythrocyte mean corpuscular volume (MCV)on 06-12-2021 MCV (RBC) [Entitic vol] 88.9 fL 80-94 [facility] Work Phone: Hematocrit Auto (Bld) [Volum e fraction]on 06-12-2021 Hematocrit (Bld) [Volume fraction] 35.3 % 40-54 [facility] Work Phone: Laboratory - Chemistry and C hemistry - challengeon 06-12-2021 CO2 [Moles/Vol] 33.0 mmol/L 21.0-32.0 [facility] Work Phone: Magnesium [Mass/Vol] 1.9 mg/dL 1.6-2.6 [facility] Work Phone: Urea nitrogen/Creatinine [Mass ratio] 35.3 mg/mg 10-20 [facility] Work Phone: Laboratory - Hematology and Cell countson 06-12-2021 Erythrocyte distribution width (RBC) [Entitic vol] 39.7 fL 35.1-43.9 [facility] Work Phone: Erythrocyte distribution width (RBC) [Ratio] 12.2 % 11.6-14.6 [facility] Work Phone: Immature granulocytes/100 WBC (Bld) 1.700 % 0.0-0.9 [facility] Work Phone: Comment on above: IG% - Immature Granu locytes (promyelocytes, myelocytes and metamyelocytes) > 1% indicates that a LEFT SHIFT is Present. MCH (RBC) [Entitic mass] 30.5 pg 27.0-32.0 [facility] Work Phone: Nucleated RBC/100 WBC (Bld) [Ratio] 0 % 0-5 [facility] Work Phone: MCHC Auto (RBC) [Mass/Vol]on 06-12-2021 MCHC (RBC) [Mass/Vol] 34.3 g/dL 32-36 [facility] [place] Work Phone: No Panel Informationon 06-12 Estimated Creatinine Clearance Calc 35.14 ml/min [facility] Work Phone: Estimated GFR (MDRD) Amer 50 mL/min >60 [facility] Work Phone: Comment on above: GFR Calc Estimated GFR (MDRD) Non-Af Amer 41 mL/min >60 [facility] Work Phone: Comment on above: Non- GFR Calc Platelets bldon 06-12-2021 Platelets (Bld) [#/Vol] 230 10*3/uL 150-450 [facility] Work Phone: Serum or plasma calcium gilda urement (mass/volume)on 06-12-2021 Calcium [Mass/Vol] 8.7 mg/dL 8.5-10.1 [facility] Work Phone: Serum or plasma creatinine m easurement (mass/volume)on 06-12-2021 Creatinine [Mass/Vol] 1.73 mg/dL 0.70-1.30 [facility] [place] Work Phone: Comment on above: The validity of the calculated GFR & GFRAA in patients over 70 years has not been determined. Clinical correlation is essential. Serum or plasma urea nitroge n measurement (mass/volume)on 06-12-2021 Urea nitrogen [Mass/Vol] 61 mg/dL 7-18 [facility] Work Phone: Thin prep Papanicolaou smear with manual screeningon 06-12-2021 Thin prep Papanicolaou smear with manual screening 5 5-15 [facility] Work Phone: Absolute lymphocyte counton 06-11-2021 Lymphocytes Auto (Unsp spec) [#/Vol] 0.59 10*3/uL 0.83-4.51 [facility] Work Phone: Basophil percentageon 2021 Basophils/100 WBC (Bld) 0.1 % 0-1 [facility] Work Phone: Chloride [Moles/Vol] 88 mmol/L 98-107 [facility] Work Phone: Eosinophils/100 WBC (Bld) 0.0 % 0-5 [facility] Work Phone: Glucose [Mass/Vol] 736 mg/dL 74-106 [facility] Work Phone: Comment on above: Critical Result(s) C alled at: 22:37:16 06/11/2021 by: JR GALAN TO DIONY HDEZ. Results read back by same.Glucose result greater than or equal to 200 mg/dLsuggests DIABETES MELLITUS per A.D.A. criteria. Neutrophils (Bld) [#/Vol] 13.6 10*3/uL 2.0-7.7 [facility] Work Phone: Neutrophils/100 WBC (Bld) 88.7 % 47-70 [facility] Work Phone: Potassium [Moles/Vol] 5.1 mmol/L 3.5-5.1 [facility] Work Phone: Sodium [Moles/Vol] 128 mmol/L 136-145 [facility] Work Phone: WBC (Bld) [#/Vol] 15.3 10*3/uL 4.4-11.0 [facility] Blood erythrocytes count (nu mber/volume)on 06-11-2021 RBC (Bld) [#/Vol] 4.35 10*6/uL 4.6-6.2 [facility] Work Phone: Blood hemoglobin measurement (mass/volume)on 06-11-2021 Hemoglobin (Bld) [Mass/Vol] 13.2 g/dL 13.0-16.5 [facility] Work Phone: Blood lymphocytes/100 leukoc yteson 06-11-2021 Lymphocytes/100 WBC (Bld) 3.8 % 19-41 [facility] Work Phone: Blood manual differential co mment interpretation (narrative result)on 06-11-2021 Manual differential comment Alvaro (Bld) [Interp] SCANNED [facility] Work Phone: Comment on above: LYMPHOPENIA NOTED Blood monocytes/100 leukocyt eson 06-11-2021 Monocytes/100 WBC (Bld) 5.7 % 0-10 [facility] Work Phone: Blood platelet mean volumeon 06-11-2021 Platelet mean volume (Bld) [Entitic vol] 9.8 fL 6.2-12.0 [facility] Work Phone: Determination of erythrocyte mean corpuscular volume (MCV)on 04-25-2022 MCV (RBC) [Entitic vol] 89.9 fL 80-94 [facility] Work Phone: Glucose Glucometer (BldC) [M ass/Vol]on 06-11-2021 Glucose [Mass/Vol] mg/dL 74-106 [facility] Work Phone: Comment on above: MANAGEMENT OF PATIEN T CARE PER NURSING PROTOCOL Hematocrit Auto (Bld) [Volum e fraction]on 06-11-2021 Hematocrit (Bld) [Volume fraction] 39.1 % 40-54 [facility] Work Phone: Laboratory - Chemistry and C hemistry - challengeon 06-11-2021 CO2 [Moles/Vol] 32.0 mmol/L 21.0-32.0 [facility] Work Phone: Urea nitrogen/Creatinine [Mass ratio] 31.8 mg/mg 10-20 [facility] Work Phone: Laboratory - Hematology and Cell countson 06-11-2021 Erythrocyte distribution width (RBC) [Entitic vol] 41.6 fL 35.1-43.9 [facility] Work Phone: Erythrocyte distribution width (RBC) [Ratio] 12.5 % 11.6-14.6 [facility] Work Phone: Immature granulocytes/100 WBC (Bld) 1.700 % 0.0-0.9 [facility] Work Phone: Comment on above: IG% - Immature Granu locytes (promyelocytes, myelocytes and metamyelocytes) > 1% indicates that a LEFT SHIFT is Present. MCH (RBC) [Entitic mass] 30.3 pg 27.0-32.0 [facility] Work Phone: Nucleated RBC/100 WBC (Bld) [Ratio] 0 % 0-5 [facility] Work Phone: MCHC Auto (RBC) [Mass/Vol]on 06-11-2021 MCHC (RBC) [Mass/Vol] 33.8 g/dL 32-36 [facility] Work [facility]: No Panel Informationon 06-11 Estimated Creatinine Clearance Calc 27.64 ml/min [facility] Work Phone: Estimated GFR (MDRD) Amer 38 mL/min >60 [facility] Work Phone: Comment on above: GFR Calc Estimated GFR (MDRD) Non-Af Amer 31 mL/min >60 [facility] Work Phone: Comment on above: Non- GFR Calc Platelets bldon 06-11-2021 Platelets (Bld) [#/Vol] 253 10*3/uL 150-450 [facility] Work Phone: Review by pathologiston 05-19 Pathologist review Alvaro (Unsp spec) [Interp] May foll [facility] Work Phone: Serum or plasma acetone gilda urement (mass/volume)on 06-11-2021 Acetone [Mass/Vol] Negative NEG [facility] Work Phone: Serum or plasma calcium gilda urement (mass/volume)on 06-11-2021 Calcium [Mass/Vol] 9.6 mg/dL 8.5-10.1 [facility] Work Phone: Serum or plasma creatinine m easurement (mass/volume)on 06-11-2021 Creatinine [Mass/Vol] 2.20 mg/dL 0.70-1.30 [facility] Work Phone: Comment on above: The validity of the calculated GFR & GFRAA in patients over 70 years has not been determined. Clinical correlation is essential. Serum or plasma urea nitroge n measurement (mass/volume)on 06-11-2021 Urea nitrogen [Mass/Vol] 70 mg/dL 7-18 [facility] Work Phone: Thin prep Papanicolaou smear with manual screeningon 06-11-2021 Thin prep Papanicolaou smear with manual screening 322 mOsm/KG 280-301 [facility] Work Phone: Thin prep Papanicolaou smear with manual screening 8 5-15 [facility] Work Phone: Whole blood hemoglobin A1c/t otal hemoglobin ratio (mass fraction)on 06-11-2021 HbA1c (Bld) [Mass fraction] 9.3 % 3.8-5.6 [facility] Work Phone: Comment on above: Normal < 5.7 % Predi abetic 5.7 - 6.4 % Diabetic >or= 6.5 % Please note range changes. Absolute lymphocyte counton 06-01-2021 Lymphocytes Auto (Unsp spec) [#/Vol] 0.92 10*3/uL 0.83-4.51 [facility] Work Phone: Basophil percentageon 2021 Basophils/100 WBC (Bld) 0.4 % 0-1 [facility] Work Phone: Bilirubin [Mass/Vol] 0.80 mg/dL 0.20-1.00 [facility] Work Phone: Comment on above: For patients on eltr ombopag therapy, use of Dimension [place] TBIL is not recommended. Chloride [Moles/Vol] 98 mmol/L 98-107 [facility] Work Phone: Eosinophils/100 WBC (Bld) 0.3 % 0-5 [facility] Work Phone: Glucose [Mass/Vol] 329 mg/dL 74-106 [facility] Work Phone: Comment on above: Glucose result great er than or equal to 200 mg/dLsuggests DIABETES MELLITUS per A.D.A. criteria. Neutrophils (Bld) [#/Vol] 12.2 10*3/uL 2.0-7.7 [facility] Work Phone: Neutrophils/100 WBC (Bld) 81.3 % 47-70 [facility] Work Phone: Potassium [Moles/Vol] 4.9 mmol/L 3.5-5.1 [facility] [place] Work Phone: Protein [Mass/Vol] 6.8 g/dL 6.4-8.2 [facility] Work Phone: Sodium [Moles/Vol] 133 mmol/L 136-145 [facility] Work Phone: WBC (Bld) [#/Vol] 15.0 10*3/uL 4.4-11.0 [facility] Work Phone: Blood erythrocytes count (nu mber/volume)on 06-01-2021 RBC (Bld) [#/Vol] 4.58 10*6/uL 4.6-6.2 [facility] Work Phone: Blood hemoglobin measurement (mass/volume)on 06-01-2021 Hemoglobin (Bld) [Mass/Vol] 13.9 g/dL 13.0-16.5 [facility] Work Phone: Blood lymphocytes/100 leukoc yteson 06-01-2021 Lymphocytes/100 WBC (Bld) 6.1 % 19-41 [facility] Work Phone: Blood monocytes/100 leukocyt eson 06-01-2021 Monocytes/100 WBC (Bld) 9.2 % 0-10 [facility] Work Phone: Blood platelet mean volumeon 06-01-2021 Platelet mean volume (Bld) [Entitic vol] 8.8 fL 6.2-12.0 [facility] Work Phone: Bronchoalveolar lavage cultu re with Gram stainon 06-01-2021 Respiratory Culture Pseudomonas aeroginosa [facility] Work Phone: Determination of erythrocyte mean corpuscular volume (MCV)on 06-01-2021 MCV (RBC) [Entitic vol] 89.7 fL 80-94 [facility] Work Phone: Gram stain for investigation of transfusion reactionon 06-01-2021 Microscopic observation Gram stain Nom (Unsp spec) [facility] Work Phone: Hematocrit Auto (Bld) [Volum e fraction]on 06-01-2021 Hematocrit (Bld) [Volume fraction] 41.1 % 40-54 [facility] Work Phone: [phone] Laboratory - Chemistry and C hemistry - challengeon 06-01-2021 ALP [Catalytic activity/Vol] 89 U/L 45-117 [facility] Work Phone: ALT [Catalytic activity/Vol] 43 U/L 16-61 [facility] Work Phone: [phone] CO2 [Moles/Vol] 29.0 mmol/L 21.0-32.0 [facility] Work Phone: [phone] Globulin (S) [Mass/Vol] 3.6 g/dL 2.2-4.2 [facility] Work Phone: [phone] Urea nitrogen/Creatinine [Mass ratio] 30.0 mg/mg 10-20 [facility] Work Phone: [phone] Laboratory - Hematology and Cell countson 06-01-2021 Erythrocyte distribution width (RBC) [Entitic vol] 42.2 fL 35.1-43.9 [facility] Work Phone: [phone] Erythrocyte distribution width (RBC) [Ratio] 12.8 % 11.6-14.6 [facility] Work Phone: [phone] Immature granulocytes/100 WBC (Bld) 2.700 % 0.0-0.9 [facility] Work Phone: [phone] Comment on above: IG% - Immature Granu locytes (promyelocytes, myelocytes and metamyelocytes) > 1% indicates that a LEFT SHIFT is Present. MCH (RBC) [Entitic mass] 30.3 pg 27.0-32.0 [facility] Work Phone: [phone] Nucleated RBC/100 WBC (Bld) [Ratio] 0 % 0-5 [facility] Work Phone: [phone] MCHC Auto (RBC) [Mass/Vol]on 06-01-2021 MCHC (RBC) [Mass/Vol] 33.8 g/dL 32-36 [facility] Work Phone: No Panel Informationon 06-01 Estimated Creatinine Clearance Calc 38.00 ml/min [facility] Work Phone: Estimated GFR (MDRD) Amer 54 mL/min >60 [facility] Work Phone: Comment on above: GFR Calc Estimated GFR (MDRD) Non-Af Amer 45 mL/min >60 [facility] Work Phone: Comment on above: Non- GFR Calc Troponin I High Sensitivity 25 pg/mL 3.0-78.0 [facility] Work Phone: Comment on above: Please Note: [place] Units and Gender Specific Reference Ranges. For more information see Policy Stat Procedure [place] High Sensitivity Troponin (TNIH) and attachments. Platelets bldon 06-01-2021 Platelets (Bld) [#/Vol] 265 10*3/uL 150-450 [facility] Work Phone: Serum or plasma albumin gilda urement (mass/volume)on 06-01-2021 Albumin [Mass/Vol] 3.2 g/dL 3.2-5.0 [facility] Work Phone: Serum or plasma albumin/glob ulin mass ratioon 06-01-2021 Albumin/Globulin [Mass ratio] 0.9 {ratio} 0.9-2.4 [facility] Work Phone: Serum or plasma calcium gilda urement (mass/volume)on 06-01-2021 Calcium [Mass/Vol] 9.4 mg/dL 8.5-10.1 [facility] Work Phone: Serum or plasma creatinine m easurement (mass/volume)on 06-01-2021 Creatinine [Mass/Vol] 1.60 mg/dL 0.70-1.30 [facility] Work Phone: Comment on above: The validity of the calculated GFR & GFRAA in patients over 70 years has not been determined. Clinical correlation is essential. Serum or plasma urea nitroge n measurement (mass/volume)on 06-01-2021 Urea nitrogen [Mass/Vol] 48 mg/dL 7-18 [facility] Work Phone: Thin prep Papanicolaou smear with manual screeningon 06-01-2021 Thin prep Papanicolaou smear with manual screening 16 U/L 15-37 [facility] Work Phone: Thin prep Papanicolaou smear with manual screening 6 5-15 [facility] Work Phone: Absolute lymphocyte counton 05-27-2021 Lymphocytes Auto (Unsp spec) [#/Vol] 0.92 10*3/uL 0.83-4.51 [facility] Work Phone: [phone] Basophil percentageon 2021 Basophils/100 WBC (Bld) 0.3 % 0-1 [facility] Work Phone: Chloride [Moles/Vol] 102 mmol/L 98-107 [facility] Work Phone: Eosinophils/100 WBC (Bld) 0.8 % 0-5 [facility] Work Phone: Glucose [Mass/Vol] 210 mg/dL 74-106 [facility] Work Phone: Comment on above: Glucose result great er than or equal to 200 mg/dLsuggests DIABETES MELLITUS per A.D.A. criteria. Neutrophils (Bld) [#/Vol] 5.5 10*3/uL 2.0-7.7 [facility] Work Phone: Neutrophils/100 WBC (Bld) 76.2 % 47-70 [facility] Work Phone: Potassium [Moles/Vol] 5.2 mmol/L 3.5-5.1 [facility] Work Phone: Sodium [Moles/Vol] 135 mmol/L 136-145 [facility] Work Phone: [phone] WBC (Bld) [#/Vol] 7.2 10*3/uL 4.4-11.0 [facility] Work Phone: Blood erythrocytes count (nu mber/volume)on 05-27-2021 RBC (Bld) [#/Vol] 4.55 10*6/uL 4.6-6.2 [facility] Work Phone: Blood hemoglobin measurement (mass/volume)on 05-27-2021 Hemoglobin (Bld) [Mass/Vol] 13.9 g/dL 13.0-16.5 [facility] Work Phone: Blood lymphocytes/100 leukoc yteson 05-27-2021 Lymphocytes/100 WBC (Bld) 12.8 % 19-41 [facility] Work Phone: Blood monocytes/100 leukocyt eson 05-27-2021 Monocytes/100 WBC (Bld) 9.5 % 0-10 [facility] Work Phone: Blood platelet mean volumeon 05-27-2021 Platelet mean volume (Bld) [Entitic vol] 8.8 fL 6.2-12.0 [facility] Work Phone: Determination of erythrocyte mean corpuscular volume (MCV)on 05-27-2021 MCV (RBC) [Entitic vol] 91.9 fL 80-94 [facility] Work Phone: Hematocrit Auto (Bld) [Volum e fraction]on 05-27-2021 Hematocrit (Bld) [Volume fraction] 41.8 % 40-54 [facility] Work Phone: Laboratory - Chemistry and C hemistry - challengeon 05-27-2021 CO2 [Moles/Vol] 30.0 mmol/L 21.0-32.0 [facility] Work Phone: Natriuretic peptide B (Bld) [Mass/Vol] 111.0 pg/mL 0-100 [facility] Work Phone: Urea nitrogen/Creatinine [Mass ratio] 22.7 mg/mg 10-20 [facility] Work Phone: Laboratory - Hematology and Cell countson 05-27-2021 Erythrocyte distribution width (RBC) [Entitic vol] 45.6 fL 35.1-43.9 [facility] Work Phone: Erythrocyte distribution width (RBC) [Ratio] 13.2 % 11.6-14.6 [facility] Work Phone: Immature granulocytes/100 WBC (Bld) 0.400 % 0.0-0.9 [facility] Work Phone: Comment on above: IG% - Immature Granu locytes (promyelocytes, myelocytes and metamyelocytes) > 1% indicates that a LEFT SHIFT is Present. MCH (RBC) [Entitic mass] 30.5 pg 27.0-32.0 [facility] Work Phone: Nucleated RBC/100 WBC (Bld) [Ratio] 0 % 0-5 [facility] Work Phone: MCHC Auto (RBC) [Mass/Vol]on 05-27-2021 MCHC (RBC) [Mass/Vol] 33.3 g/dL 32-36 [facility] Work Phone: No Panel Informationon 05-27 Estimated Creatinine Clearance Calc 29.09 ml/min [facility] Work Phone: Estimated GFR (MDRD) Amer 38 mL/min >60 [facility] Work Phone: Comment on above: GFR Calc Estimated GFR (MDRD) Non-Af Amer 32 mL/min >60 [facility] Work Phone: Comment on above: Non- GFR Calc Troponin I High Sensitivity 15 pg/mL 3.0-78.0 [facility] Work Phone: Comment on above: Please Note: [place] Units and Gender Specific Reference Ranges. For more information see Policy Stat Procedure [place] High Sensitivity Troponin (TNIH) and attachments. Platelets bldon 05-27-2021 Platelets (Bld) [#/Vol] 184 10*3/uL 150-450 [facility] Work Phone: Serum or plasma calcium gilda urement (mass/volume)on 05-27-2021 Calcium [Mass/Vol] 9.1 mg/dL 8.5-10.1 [facility] Work Phone: Serum or plasma creatinine m easurement (mass/volume)on 05-27-2021 Creatinine [Mass/Vol] 2.16 mg/dL 0.70-1.30 [facility] Work Phone: Comment on above: The validity of the calculated GFR & GFRAA in patients over 70 years has not been determined. Clinical correlation is essential. Serum or plasma urea nitroge n measurement (mass/volume)on 05-27-2021 Urea nitrogen [Mass/Vol] 49 mg/dL 7-18 [facility] Work Phone: Thin prep Papanicolaou smear with manual screeningon 05-27-2021 Thin prep Papanicolaou smear with manual screening 3 5-15 [facility] Work Phone: Vital Signs Date Time Vital Sign Value Performing Clinician Facility 08-06-2024 08:37-0400 Body height 172.72 cm [facility] 08-06-2024 08:37-0400 Body mass index (BMI) [Ratio] 28.8 kg/m2 [facility] 08-06-2024 08:37-0400 Body weight 85.95 kg [facility] 08-05-2024 07:59-0400 Body mass index (BMI) [Ratio] 28.4 kg/m2 [facility] 08-05-2024 07:59-0400 Body temperature 97.4 [degF] [facility] 08-05-2024 07:59-0400 Body weight 84.82 kg [facility] 08-05-2024 07:59-0400 Diastolic blood pressure 61 mm[Hg] [facility] 08-05-2024 07:59-0400 Heart rate 48 /min [facility] 08-05-2024 07:59-0400 Respiratory rate 18 /min [facility] 08-05-2024 07:59-0400 SaO2% (BldA) [Mass fraction] 92 % [facility] 08-05-2024 07:59-0400 Systolic blood pressure 130 mm[Hg] [facility] 07-08-2024 14:39-0400 Body mass index (BMI) [Ratio] 27.5 kg/m2 [facility] 07-08-2024 14:11-0400 Heart rate 43 /min [facility] 07-08-2024 14:11-0400 SaO2% (BldA) [Mass fraction] 98 % [facility] 07-08-2024 13:51-0400 Body height 172.72 cm [facility] 07-08-2024 13:51-0400 Body weight 82.1 kg [facility] 07-08-2024 13:37-0400 Diastolic blood pressure 69 mm[Hg] [facility] 07-08-2024 13:37-0400 Systolic blood pressure 142 mm[Hg] [facility] 08-07-2022 10:27-0400 Body temperature 97.34 [degF] ELIEZER PRO MD [facility] 08-07-2022 10:27-0400 Body weight 97.3 kg ELIEZER PRO MD [facility] 08-07-2022 10:27-0400 Diastolic Blood Pressure Non-Invasive 59 1 ELIEZER PRO MD [facility] 08-07-2022 10:27-0400 Heart rate 50 /min ELIEZER PRO MD [facility] 08-07-2022 10:27-0400 Respiratory rate 16 /min ELIEZER PRO MD [facility] 08-07-2022 10:27-0400 Systolic Blood Pressure Non-Invasive 192 1 ELIEZER PRO MD [facility] 06-13-2021 13:20-0400 Diastolic blood pressure 61 mm[Hg] Dr. Ghassan Munoz Work Phone: [facility] Work Phone: 06-13-2021 13:20-0400 Heart rate 61 /min Dr. Ghassan Munoz Work Phone: [facility] Work Phone: 06-13-2021 13:20-0400 Respiratory rate 16 /min Dr. Ghassan Munoz Work Phone: [facility] Work Phone: 06-13-2021 13:20-0400 SaO2% (BldA) [Mass fraction] 100 % Dr. Ghassan Munoz Work Phone: [facility] Work Phone: 06-13-2021 13:20-0400 Systolic blood pressure 112 mm[Hg] Dr. Ghassan Munoz Work Phone: [facility] Work Phone: 06-13-2021 08:25-0400 Body temperature 97 [degF] Dr. Ghassan Munoz Work Phone: [facility] Work Phone: 06-13-2021 06:00-0400 Body weight 88.[address] Ghassan Munoz Work Phone: [facility] Work Phone: 06-12-2021 10:03-0400 Body height 172.[address] Ghassan uMnoz Work Phone: [facility] Work Phone: 06-12-2021 00:34-0400 Body mass index (BMI) [Ratio] 29.9 kg/m2 Dr. Ghassan Munoz Work Phone: [facility] Work Phone: 06-11-2021 23:29-0400 Body temperature 98 [degF] Dr. Ghassan Munoz Work Phone: [facility] Work Phone: 06-11-2021 23:29-0400 Diastolic blood pressure 59 mm[Hg] Dr. Ghassan Munoz Work Phone: [facility] Work Phone: 06-11-2021 23:29-0400 Heart rate 61 /min Dr. Ghassan Munoz Work Phone: [facility] Work Phone: 06-11-2021 23:29-0400 Respiratory rate 13 /min Dr. Ghassan Munoz Work Phone: [facility] Work Phone: 06-11-2021 23:29-0400 SaO2% (BldA) [Mass fraction] 95 % Dr. Ghassan Munoz Work Phone: [facility] Work Phone: 06-11-2021 23:29-0400 Systolic blood pressure 118 mm[Hg] Dr. Ghassan Munoz Work Phone: [facility] Work Phone: 06-11-2021 20:32-0400 Body height 172.[address] Ghassan Munoz Work Phone: [facility] Work Phone: 06-11-2021 20:32-0400 Body mass index (BMI) [Ratio] 32.6 kg/m2 Dr. Ghassan Munoz Work Phone: [facility] Work Phone: 06-11-2021 20:32-0400 Body weight 97.[address] Ghassan Munoz Work Phone: [facility] Work Phone: 06-01-2021 18:44-0400 Diastolic blood pressure 56 mm[Hg] Dr. Ghassan Munoz Work Phone: [facility] Work Phone: 06-01-2021 18:44-0400 Heart rate 76 /min Dr. Ghassan Munoz Work Phone: [facility] Work Phone: 06-01-2021 18:44-0400 Respiratory rate 20 /min Dr. Ghassan Munoz Work Phone: [facility] Work Phone: 06-01-2021 18:44-0400 SaO2% (BldA) [Mass fraction] 96 % Dr. Ghassan Munoz Work Phone: [facility] Work Phone: 06-01-2021 18:44-0400 Systolic blood pressure 124 mm[Hg] Dr. Ghassan Munoz Work Phone: [facility] Work Phone: 06-01-2021 13:12-0400 Body height 172.[address] Ghassan Munoz Work Phone: [facility] Work Phone: 06-01-2021 13:12-0400 Body mass index (BMI) [Ratio] 32.6 kg/m2 Dr. Ghassan Munoz Work Phone: [facility] Work Phone: 06-01-2021 13:12-0400 Body temperature 97.5 [degF] Dr. Ghassan Munoz Work Phone: [facility] Work Phone: 06-01-2021 13:12-0400 Body weight 97.[address] Ghassan Munoz Work Phone: [facility] Work Phone: 05-27-2021 15:25-0400 Diastolic blood pressure 62 mm[Hg] Dr. Ghassan Munoz Work Phone: [facility] Work Phone: 05-27-2021 15:25-0400 Heart rate 50 /min Dr. Ghassan Munoz Work Phone: [facility] Work Phone: 05-27-2021 15:25-0400 Respiratory rate 18 /min Dr. Ghassan Munoz Work Phone: [facility] Work Phone: 05-27-2021 15:25-0400 SaO2% (BldA) [Mass fraction] 95 % Dr. Ghassan Munoz Work Phone: [facility] Work Phone: 05-27-2021 15:25-0400 Systolic blood pressure 137 mm[Hg] Dr. Ghassan Munoz Work Phone: [facility] Work Phone: 05-27-2021 14:10-0400 Body height 175.[address] Ghassan Munoz Work Phone: [facility] Work Phone: 05-27-2021 14:10-0400 Body mass index (BMI) [Ratio] 30.8 kg/m2 Dr. Ghassan Munoz Work Phone: [facility] Work Phone: 05-27-2021 14:10-0400 Body temperature 96.6 [degF] Dr. Ghassan Munoz Work Phone: [facility] Work Phone: 05-27-2021 14:10-0400 Body weight 94.[address] Ghassan Munoz Work Phone: [facility] Work Phone: 05-22-2021 14:06-0400 Body temperature 98.8 [degF] Dr. Ghassan Munoz Work Phone: [facility] Work Phone: 05-22-2021 14:06-0400 Diastolic blood pressure 77 mm[Hg] Dr. Ghassan Munoz Work Phone: [facility] Work Phone: 05-22-2021 14:06-0400 Heart rate 50 /min Dr. Ghassan Munoz Work Phone: [facility] Work Phone: 05-22-2021 14:06-0400 Respiratory rate 16 /min Dr. Ghassan Munoz Work Phone: [facility] Work Phone: 05-22-2021 14:06-0400 SaO2% (BldA) [Mass fraction] 93 % Dr. Ghassan Munoz Work Phone: [facility] Work Phone: 05-22-2021 14:06-0400 Systolic blood pressure 150 mm[Hg] Dr. Ghassan Munoz Work Phone: [facility] Work Phone: 05-08-2021 15:07-0400 Body mass index (BMI) [Ratio] 31.7 kg/m2 Dr. Ghassan Munoz Work Phone: [facility] Work Phone: 05-08-2021 15:07-0400 Body temperature 98.3 [degF] Dr. Ghassan Munoz Work Phone: [facility] Work Phone: 05-08-2021 15:07-0400 Body weight 97.[address] Ghassan Munoz Work Phone: [facility] Work Phone: 05-08-2021 15:07-0400 Diastolic blood pressure 54 mm[Hg] Dr. Ghassan Munoz Work Phone: [facility] Work Phone: 05-08-2021 15:07-0400 Heart rate 52 /min Dr. Ghassan Munoz Work Phone: [facility] Work Phone: 05-08-2021 15:07-0400 Respiratory rate 16 /min Dr. Ghassan Munoz Work Phone: [facility] Work Phone: 05-08-2021 15:07-0400 SaO2% (BldA) [Mass fraction] 97 % Dr. Ghassan Munoz Work Phone: [facility] Work Phone: 05-08-2021 15:07-0400 Systolic blood pressure 109 mm[Hg] Dr. Ghassan Munoz Work Phone: [facility] Work Phone: 02-05-2021 12:20-0500 Body mass index (BMI) [Ratio] 32.2 kg/m2 Dr. Ghassan Munoz Work Phone: [facility] Work Phone: 02-05-2021 12:20-0500 Body temperature 98.7 [degF] Dr. Ghassan Munoz Work Phone: [facility] Work Phone: 02-05-2021 12:20-0500 Body weight 97.[address] Ghassan Munoz Work Phone: [facility] Work Phone: 02-05-2021 12:20-0500 Diastolic blood pressure 69 mm[Hg] Dr. Ghassan Munoz Work Phone: [facility] Work Phone: 02-05-2021 12:20-0500 Heart rate 55 /min Dr. Ghassan Munoz Work Phone: [facility] Work Phone: 02-05-2021 12:20-0500 Respiratory rate 16 /min Dr. Ghassan Munoz Work Phone: [facility] Work Phone: 02-05-2021 12:20-0500 Systolic blood pressure 119 mm[Hg] Dr. Ghassan Munoz Work Phone: [facility] Work Phone: Encounters Encounter Date Encounter Type Care Provider Facility Start: 08-30-2024 [facility] Start: 08-25-2024 [facility] Start: 08-16-2024 End: 08-16-2024 ambulatory [facility] Start: 08-16-2024 End: 08-16-2024 Discharged Recurring [facility] Work Phone: Start: 08-05-2024 End: 08-05-2024 Patient encounter procedure Maria Luisa [facility] Work Phone: Start: 08-05-2024 End: 08-05-2024 ambulatory [facility] Work Phone: Start: 08-04-[address] [facility] Start: 07-16-2024 End: 07-17-2024 ambulatory [facility] Work Phone: Start: 07-16-2024 End: 07-17-2024 Discharged Recurring [facility] Work Phone: Start: 07-15-2024 Encounter for genera l adult medical examination without abnormal findings [facility] Start: 07-14-2024 Registered Recurring [facility] ulmonary Rehab Work Phone: Start: 07-08-2024 End: 07-08-2024 ambulatory [facility] Work Phone: Start: 07-08-2024 End: 07-08-2024 Patient encounter procedure [facility] Work Phone: Start: 07-08-2024 End: 07-08-2024 [facility]ulatory [facility] Start: 04-23-2024 End: 04-23-2024 Emergency department patient visit FELIZ [facility] Start: 02-10-2024 End: 02-10-2024 [facility] Start: 01-08-2024 End: 01-09-2024 ambulatory RITU OLIVA [facility] Start: 11-27-2023 End: 11-27-2023 Emergency department patient visit JUDITH Odonnell WEAVER [facility] Start: 07-17-2023 End: 07-17-2023 ambulatory JEFERSON GUTIERRES [facility] Start: 08-07-2022 End: 08-07-2022 Emergency department patient visit [facility] Facility: Start: 08-07-2022 End: 08-07-2022 Emergency department patient visit ELIEZER PRO MD [facility] Start: 03-02-2022 End: 03-04-2022 ambulatory NANCY PINEDA Facility: Start: 01-08-2022 Emergency department patient visit DR JUDITH Odonnell WEAVER [facility] Start: 06-13-2021 Non-patient / Non-visit Dr. Ghassan Munoz Work Phone: [facility] In[facility] Start: 06-12-2021 Non-patient / Non-visit Dr. Ghassan Munoz Work Phone: [facility] Start: 06-11-2021 End: 06-13-2021 Evaluation and management of inpatient Dr. Ghassan Munoz Work Phone: [facility] Start: 06-01-2021 End: 06-01-2021 Emergency department patient visit Dr. Ghassan Munoz Work Phone: [facility] Start: 05-27-2021 End: 05-27-2021 Emergency department patient [facility] Start: 05-22-2021 End: 05-22-[address] Ghassan Munoz Work Phone: [facility]Laboratory, Specimen Start: 05-22-2021 End: 05-22-[address] Ghassan Munoz Work Phone: [facility] Start: 05-08-2021 End: 05-08-[address] Ghassan Munoz Work Phone: [facility] Radiology Start: 02-05-2021 End: 02-05-[address] Ghassan Munoz Work Phone: [facility] Radiology Procedures Date Procedure Procedure Detail Performing Clinician Start: 06-11-2021 Plain chest X-ray Dr. Jamila Munoz Work Phone: Start: 06-01-2021 Plain chest X-ray Dr. Jamila Munoz Work Phone: Start: 06-01-2021 Investigation of transfusion reaction Dr. Ghassan Munoz Work Phone: Start: 06-01-2021 Respiratory microbia l culture Dr. Ghassan Munoz Work Phone: Start: 05-27-2021 Plain chest X-ray Dr. Jamila Munoz Work Phone: Start: 05-22-2021 End: 05-22-[address] Ghassan Munoz Work Phone: Start: 05-08-2021 Plain chest X-ray Dr. Jamila Munoz Work Phone: Start: 02-05-2021 Plain chest X-mikayla Munoz Work Phone: Start: 02-18-1996 History of coronary artery bypass grafting S/P CABG x 3 Dr. Ghassan Munoz Work Phone: Plan of Treatment Date Care Activity Detail Author Start: 09-01-2024 Walking distance 6 minutes [facility] Start: 08-31-2024 Measurement of respiratory function [facility] Start: 06-01-2021 Microscopic observat ion [Identifier] in Unspecified specimen by Gram stain Gram Stain [facility] Work Phone: Start: 06-01-2021 Respiratory Culture Respiratory Cult ure [facility] Work Phone: Measurement of respiratory function [facility] Patient Education [facility] Work Phone: Patient referral [facility] Work Phone: Walking distance 6 minutes [facility] Immunizations Immunization Date Immunization Notes Care Provider Piter oshea 12-25-[address] Ghassan Munoz Work Phone: [facility] Payers Date Payer Category Payer [employer] ( [employer] others) [id number] 2024 Self-pay [id number] 2022 [employer] ( and others) [id number] 2006 Medicare [id number] 1945 Unknown [id number] 1945 Unknown [id number] .627 1945 Unknown [id number] .651 1945 Unknown [id number] .651 1945 Unknown [id number] .651 1945 Unknown [id number] [id number] .651 1945 Unknown [id number] [id number] .651 Unknown [facility] [id number] Unknown [id number] Unknown [id number] .462 Unknown [id number] .462 Unknown [id number] [id number] .462 Unknown [id number] [id number] .462 Unknown [id number] [id number] .462 Unknown [id number] .462 Social History Date Type Detail Facility Start: 05-27-2021 End: 06-12-2021 Tobacco smoking status WIIS Unknown if ever smoked [facility] Work Phone: Start: 03-16-2019 None [facility] Start: 03-16-2019 Spouse/ Signif icant Other [facility] Start: 03-16-2019 Cigarettes [facility] Start: 1945 Sex Assigned At Male [facility] Tobacco smoking status [facility] Start: 07-08-2024 Tobacco smoking status NHIS Ex-smoker (finding) [facility] Functional Status Date Assessment Result Facility 08-07-2022 Functional Status Assistive Device None A [facility] 06-13-2021 Functional status Chair [facility] Work Phone: Mental Status Date Assessment Result Facility 06-13-2021 Cognitive function Voice/Name [facility] Work Phone: Clinical Notes 01-07-2022 to 08-05-2024 Note Date & Type Note Facility 08-05-2024 Evaluation note Diagnosis Onset Date Resolution DEMAR (obstructive sleep apnea) acute August 05, 2024 8:09am Chronic respiratory failure chronic August 05, 2024 8:09am 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 August 05 8:09am [facility] Work Phone: 1(732) 932-855205-26-2025 History and physical note Author Gerardo Lawrence [facility] Note Date/Time July 12, 2024 6:44p m [facility] Pulmonary Rehab Reports [address] [place] [address] [place] - History & Physical MR#: [id number] Acct: [id number] Name: BRYN AYON Rep #:[id number] : 1945 78 From: Gerardo Perkins BS, RVT [facility]CP[facility] History of Present Illness General Arrival date:: 07/08/24 Arrival time:: 13:30 Date of Referral:: 06/29/24 Date of Evaluation: 07/08/24 Referring Physician: [facility] Primary Diagnosis: COPD History of Present Pulmonary Event mMRC Breathless Scale: When is the patient short of breath? Y/N Grade: Description of Breathlessness: 0 I only get breathless with strenuous exercise. 1 I get short of breath when hurrying on level ground or walking up a slight hill. 2 On level ground, I walk slower than people of the same age because of breathless, or have to stop for breath when walking at my own pace. 3 I stop for breath after walking 100 yards or after a few minutes on level ground. 4 I am too breathless to leave the house or I am breathless when dressing. Respiratory Problems: Yes Retain Secretions, Chest Pain, Fatigue, Able to Speak in Full Sentences, Dizziness, Hoarseness, Anxiety, Dyspnea with Activity and Cough with Secretions; No Limited Range of Motion, Wheezing, Ankle Swelling, Panic, Dyspnea at Rest or Dyspnea Lying Down Flat Medications Home Medications albuterol sulfate 90 mcg/actuation aerosol inhaler 2 puff inhalation Q4H PRN PRNShortness Of Breath 06/05/16 aspirin 81 mg tablet,delayed release 81 mg PO DAILY [facility] health 06/05/16 montelukast 10 mg tablet 10 mg PO QHS allergies 06/05/16 rosuvastatin 40 mg tablet 40 mg PO QHS cholesterol 06/05/16 sodium chloride 0.65 % nasal spray aerosol 2 spry NARES BID PRN PRN Nasal Dryness 06/05/16 nitroglycerin 400 mcg/spray translingual 1 spray sublingual Q3-5M PRN chest pain#12 grams 12/04/18 albuterol sulfate 2.5 mg/3 mL (0.083 %) solution for nebulization 2.5 mg inhalation Q6H PRN PRN Sob &/Or Wheezing 03/16/19 carvedilol 6.25 mg tablet 6.25 mg PO BID hypertension 03/16/19 clopidogrel 75 mg tablet 75 mg PO DAILY antiplatelet 03/16/19 furosemide 40 mg tablet 20 mg PO heart failure 03/16/19 ipratropium bromide 42 mcg (0.06 %) nasal spray 2 spray NASAL BID PRN PRN runny nose 03/16/19 losartan 25 mg tablet 25 mg PO DAILY hypertension 03/16/19 magnesium oxide 420 mg tablet 420 mg PO BID supplement 04/20/19 spacer #1 ea 06/04/19 pantoprazole 40 mg tablet,delayed release 40 mg PO DAILY #60 tabs 06/08/19 cholecalciferol (vitamin D3) 25 mcg (1,000 unit) tablet 2,000 unit PO DAILY supplement 06/10/19 tiotropium bromide 2.5 mcg/actuation mist for inhalation 2 puff inhalation BID copd 06/10/19 meclizine 25 mg tablet 25 mg PO TID PRN dizziness #60 tabs 08/04/19 benzonatate 100 mg capsule 100 mg PO BID-TID PRN cough #15 caps 05/22/21 amiodarone 200 mg tablet 200 mg PO DAILY 05/27/21 apixaban 5 mg tablet 5 mg PO BID 05/27/21 atorvastatin 20 mg tablet 05/27/21 cyanocobalamin (vitamin B-12) 1,000 mcg tablet,extended release 1,000 mcg PO DAILY 05/27/21 ezetimibe 10 mg tablet mg 05/27/21 fluticasone propionate 50 mcg/actuation nasal spray,suspension intranasal 05/27/21 prednisone 10 mg tablet 50 mg (5 x 10 mg) PO DAILY 5 days #25 tabs 05/27/21 prednisone 10 mg tablet 10 mg PO DAILY #63 tabs 06/01/21 insulin glargine-yfgn 100 unit/mL (3 mL) subcutaneous pen 30 unit (0.3 mL) subcut BID #15 mL 06/13/21 insulin lispro 100 unit/mL subcutaneous pen (Humalog KwikPen (U-100) Insulin) 8 unit (0.08 mL) subcut TIDAC #15 mL 06/13/21 Allergies Allergies No Known Allergies Allergy (Verified 06/11/21 20:34) Secretions Thick:: Yes Amount/Day:: 1 TBSP Sleep Disorder Evaluation Hx of Sleep Apnea: Yes Do you snore loudly (louder than talking or can be heard through closed doors)?:No Do you often feel tired/ fatigued/ sleepy during daytime?: No Has anyone observed you stop breathing during sleep?: No History of Hypertension (for STOP score): Yes STOP Results: Negative Medical Utilization Medical Devices Do you use a peak flow meter at home?: Yes Do you use a spacer device with your inhalers?: No Medical Utilization Number of hospital visits in the last year?: 0 Number of emergency room visits in the last year?: 6 Do you see your physician on a regular schedule?: Yes How often?: twice a year Advanced Directives Advanced Directives Do you have a Healthcare Power of Kennel Keeper?: Yes Living Will: Yes Advance Directives Information Provided: No Advance Directives on File: No DNR Order?:: No Past Medical History Covid-19 Screening Physicial Symptoms Other Clinical Concerns Exposure Risk Pertinent Comorbidities 65 years or older:: Yes Has a chronic lung disease or moderate to severe asthma:: Yes Diabetic:: Yes Medical History Past Medical History (Updated 06/21/21 @ 00:01 by Shane Maddox) History of coronary artery disease Z86.79 COPD (chronic obstructive pulmonary disease) J44.9 Type 2 diabetes mellitus E11.9 Lung mass R91.8 Smoking F17.200 Appropriate for low-dose CT lung cancer screening due in October 2019, will remain appropriate for annual screening through 2022. Stage 3 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 J44.9 History of ventricular fibrillation Z86.79 Carpal tunnel syndrome, bilateral G56.03 Pulmonary nodules R91.8 Hyperlipidemia E78.5 Essential hypertension I10 Ischemic cardiomyopathy I25.5 DEMAR (obstructive sleep apnea) G47.33 doesn't use CPAP Atherosclerosis of coronary artery bypass graft(s) without angina pectoris I25.810 Successful PTCA/ODILON distal LCX with a 2.25 x 20 Promus Synergy stent[facility] is also status post three-vessel bypass surgery at [facility] in 1998, with subsequent catheterizations and stents over the last 5 years, the specifics of which are difficult to interpret Atherosclerosis of coronary artery of [place] heart I25.10 Successful PTCA/ODILON distal LCX with a 2.25 x 20 Promus Synergy stent,10/26/2018 per [facility] Patient is also status post three-vessel bypass surgery at [facility] in 1998, with subsequent catheterizations and stents over the last 5 years, the specifics of which are difficult to interpret Congestive heart failure I50.9 Chronic respiratory failure J96.10 CKD (chronic kidney disease) stage 3, GFR 30-59 ml/min N18.3 DM2 (diabetes mellitus, type 2) E11.9 COPD (chronic obstructive pulmonary disease) J44.9 NSTEMI (non-ST elevated myocardial infarction) I21.4 Pneumonia, pneumococcal J13 COPD exacerbation J44.1 Acute respiratory failure with hypoxia J96.01 Surgical History Past Surgical History (Updated 06/21/21 @ 00:01 by Background Daemon) History of left heart catheterization (03/18/19) Z98.890 Segmented LV systolic dysfunction- Mild; LVEF: by LV gram 50-55 %; Elevated Left Ventricular End Diastolic Pressure; Non obstructive coronary arteries; Widely patent LCX and LAD stents; Aortic Valve Stenosis- Mild per [facility] 03/18/19 Presence of implantable cardioverter-defibrillator (ICD) (~2015) Z95.810 [facility], AICD in 2006, revision 2004 and 2010, then 2016 S/P CABG x 3 (1996) Z95.1 SINGH to LAD, SVG to PDA, SVG to PLV [facility] 1996 Stented coronary artery (12/30/18) Z95.5 TAXUS ODILON to RCA 2005 in [place]; 2.5 x 13 mm Cypher to septal well shooter 06/2008;Successful PTCA/ODILON distal LCX with a 2.25 x 20 Promus Synergy stent,10/26/[address] [facility] @ [facility].12/30/18: Successful PTCA/ODILON mid LAD with a 2.25 x 28 Promus Synerg Hx of cholecystectomy Z90.49 Significant Family History Family History Mother Myocardial infarction Diabetes COPD (chronic obstructive pulmonary disease) Father Myocardial infarction Sister Breast cancer Colon cancer Sister Breast cancer Sister Cancer lung cancer Sister Cancer skin cancer Brother Myocardial infarction Bleeding disorder clot in heart Brother Diabetes Social History Smoking History Smoking Status: Former smoker Years Smokin (stopped nu 2006) Packs Smoked per Day: 4 (3-4) Alcohol Use Alcohol Usage: No Occupation Occupation (List type of work in comments):: Retired Functioning ADL/IADL Current Ability Current Ability: Independent: Self-Care (e.g.,grooming, dressing, & bathing), Independent: Ambulation, Independent: Transfer and Independent: Household tasks (e.g., light meal prep, laundry, shopping) Pt Functioning Prior to Problem Prior Functioning: Self-Care (e.g.,grooming, dressing, & bathing): Independent, Ambulation: Independent, Transfer: Independent and Household tasks (e.g., light meal prep, laundry, shopping): Independent Social Environment Status Marital Status: Current Living Arrangements Living Environment:: Spouse Children How many children do you have?: 6 Do any of your children live nearby?: Yes Safety Do you feel safe in your surroundings?: Yes Assistance Do you need any assistance at home?: no Review of Systems Review of Systems Review of Systems Respiratory: Reports Cough, Pleuritic Pain, SOB upon Exertion, Sputum production, Wheezing, Appetite, Normal, Dizziness/Lightheadedness and Fatigue; Denies SOB at Rest, PVD, Sexual changes or Sleep, Normal Pain Is Patient Pain Free?: Yes Risk Factor Assessment Chief Complaint Chief Complaint: COPD Vital Signs Pulse Rate: 43 Pulse Ox: 98 Blood Pressure: 142/69 Diabetes Diabetic History: Type II Obesity Height: 5 ft 8 in Weight:: 181 lb Weight in Pounds: 181.0 lbs Body Mass Index (BMI): 27.5 Nutritional Referral for Obesity: No Physical Activity Physical Inactivity: Reg Exercise 30 min/day Risk Stratification Risk Guidelines: Moderate Risk: Risk Factor for Smoking, Risk Factor for Obesity, Risk Factor for Sedentary Lifestyle and Risk Factor for Depression and Highest Risk: Risk Factor for Dyslipidemia, Risk Factor for Diabetes and Risk Factor for Hypertension For Smoking Smoking Risk Guidelines For Dyslipidemia Dyslipidemia Risk Guidelines For Diabetes Mellitus Diabetes Risk Guidelines For Obesity/Overweight Obesity/Overweight Risk Guidelines For Hypertension Hypertension Risk Guidelines For Sedentary Lifestyle Sedentary Lifestyle Risk Guidelines For Depression Depression Risk Guidelines Motivation Motivation to Participate On a scale of 1 to 10, how prepared are you to commit to attending program?: 8 What do you see as barriers to successfully being able to complete the program?:nothing What do you see as the benefits of succesfully completing the program? In other words, what do you hope to get out of participating in the program?: lungs clear Are there issues you are dealing with that will interfere with completing the program?: no Do you have a spouse or signficant other, family or friends who will help support you to complete the program?: yes Diagnostic Data Review Pulmonary Function Test FEV1:: 56 FVC:: 63 FEV1/FVC%:: 88 07/08/24 1430 <Electronically signed by Gerardo CAMPUZANO, RVT> Date _ Gerardo CAMPUZANO, RVT Outcome assessment reviewed. Exercise plan approved as documented. Treatment plan and goals support patient needs/abilities. Continue with current plan. I certify the patient demonstrates improvement and remains willing and capable of participation. the patient continues to benefit from pulmonary services/training. The patient may continue at current intensity, endurance andmodality and progress per protocol. 07/12/24 4288<Electronically signed by Scout Lebron MD> Cosigner Signature: Date Scout Lebron MD CC: ~ Signed [facility] Work Phone: 1(136) 803-484905-26-2025 History and physical note [facility] Pulmonary Rehab Reports [address] [place] [address] [place] - History & Physical MR#: [id number] Acct: [id number] Name: BRYN AYON Rep #:[id number] : 1945 78 From: Gerardo Perkins BS, RVT [facility] History of Present Illness General Arrival date:: 07/08/24 Arrival time:: 13:30 Date of Referral:: 06/29/24 Date of Evaluation: 07/08/24 Referring Physician: [facility] Primary Diagnosis: COPD History of Present Pulmonary Event [facility] Breathless Scale: When is the patient short of breath? Y/N Grade: Description of Breathlessness: 0 I only get breathless with strenuous exercise. 1 I get short of breath when hurrying on level ground or walking up a slight hill. 2 On level ground, I walk slower than people of the same age because of breathless, or have to stop for breath when walking at my own pace. 3 I stop for breath after walking 100 yards or after a few minutes on level ground. 4 I am too breathless to leave the house or I am breathless when dressing. Respiratory Problems: Yes Retain Secretions, Chest Pain, Fatigue, Able to Speak in Full Sentences, Dizziness, Hoarseness, Anxiety, Dyspnea with Activity and Cough with Secretions; No Limited Range of Motion, Wheezing, Ankle Swelling, Panic, Dyspnea at Rest or Dyspnea Lying Down Flat Medications Home Medications albuterol sulfate 90 mcg/actuation aerosol inhaler 2 puff inhalation Q4H PRN PRNShortness Of Pxliac68/19/17 aspirin 81 mg tablet,delayed release 81 mg PO DAILY heart health 06/05/16 montelukast 10 mg tablet 10 mg PO QHS allergies 06/05/16 rosuvastatin 40 mg tablet 40 mg PO QHS cholesterol 06/05/16 sodium chloride 0.65 % nasal spray aerosol 2 spry NARES BID PRN PRN Nasal Dryness 06/05/16 nitroglycerin 400 mcg/spray translingual 1 spray sublingual Q3-5M PRN chest pain#12 grams 10/18/19 albuterol sulfate 2.5 mg/3 mL (0.083 %) solution for nebulization 2.5 mg inhalation Q6H PRN PRN Sob&/Or Wheezing 03/16/19 carvedilol 6.25 mg tablet 6.25 mg PO BID hypertension 03/16/19 clopidogrel 75 mg tablet 75 mg PO DAILY antiplatelet 03/16/19 furosemide 40 mg tablet 20 mg PO heart failure 03/16/19 ipratropium bromide 42 mcg (0.06 %) nasal spray 2 spray NASAL BID PRN PRN runny nose 03/16/19 losartan 25 mg tablet 25 mg PO DAILY hypertension 03/16/19 magnesium oxide 420 mg tablet 420 mg PO BID supplement 04/20/19 spacer #1 ea 06/04/19 pantoprazole 40 mg tablet,delayed release 40 mg PO DAILY #60 tabs 06/08/19 cholecalciferol (vitamin D3) 25 mcg (1,000 unit) tablet 2,000 unit PO DAILY supplement 06/10/19 tiotropium bromide 2.5 mcg/actuation mist for inhalation 2 puff inhalation BID copd 06/10/19 meclizine 25 mg tablet 25 mg PO TID PRN dizziness #60 tabs 08/04/19 benzonatate 100 mg capsule 100 mg PO BID-TID PRN cough #15 caps 05/22/21 amiodarone 200 mg tablet 200 mg PO DAILY 05/27/21 apixaban 5 mg tablet 5 mg PO BID 05/27/21 atorvastatin 20 mg tablet 05/27/21 cyanocobalamin (vitamin B-12) 1,000 mcg tablet,extended release 1,000 mcg PO DAILY 05/27/21 ezetimibe 10 mg tablet mg 05/27/21 fluticasone propionate 50 mcg/actuation nasal spray,suspension intranasal 05/27/21 prednisone 10 mg tablet 50 mg (5 x 10 mg) PO DAILY 5 days #25 tabs 05/27/21 prednisone 10 mg tablet 10 mg PO DAILY #63 tabs 06/01/21 insulin glargine-yfgn 100 unit/mL (3 mL) subcutaneous pen 30 unit (0.3 mL) subcut BID #15 mL 06/13/21 insulin lispro 100 unit/mL subcutaneous pen (Humalog KwikPen (U-100) Insulin) 8 unit (0.08 mL) subcut TIDAC #15 mL 06/13/21 Allergies Allergies No Known Allergies Allergy (Verified 06/11/21 20:34) Secretions Thick:: Yes Amount/Day:: 1 TBSP Sleep Disorder Evaluation Hx of Sleep Apnea: Yes Do you snore loudly (louder than talking or can be heard through closed doors)?:No Do you often feel tired/ fatigued/ sleepy during daytime?: No Has anyone observed you stop breathing during sleep?: No History of Hypertension (for STOP score): Yes STOP Results: Negative Medical Utilization Medical Devices Do you use a peak flow meter at home?: Yes Do you use a spacer device with your inhalers?: No Medical Utilization Number of hospital visits in the last year?: 0 Number of emergency room visits in the last year?: 6 Do you see your physician on a regular schedule?: Yes How often?: twice a year Advanced Directives Advanced Directives Do you have a Healthcare Power of Kennel Keeper?: Yes Living Will: Yes Advance Directives Information Provided: No Advance Directives on File: No DNR Order?:: No Past Medical History Covid-19 Screening Physicial Symptoms Other Clinical Concerns Exposure Risk Pertinent Comorbidities 65 years or older:: Yes Has a chronic lung disease or moderate to severe asthma:: Yes Diabetic:: Yes Medical History Past Medical History (Updated 06/21/21 @ 00:01 by Background Daemon) History of coronary artery disease Z86.79 COPD (chronic obstructive pulmonary disease) J44.9 Type 2 diabetes mellitus E11.9 Lung mass R91.8 Smoking F17.200 Appropriate for low-dose CT lung cancer screening due in October 2019, will remain appropriate for annual screening through 2022. 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 Patient is also status post three-vessel bypass surgery at [facility] in 1998, with subsequent catheterizations and stents over the last 5 years, the specifics of which are difficult to interpret Atherosclerosis of coronary artery of [place] heart I25.10 Successful PTCA/ODILON distal LCX with a 2.25 x 20 Promus Synergy stent,10/26/2018 per CHANELL @ [facility] Patient is also status post three-vessel bypass surgery at [facility] in 1998, with subsequent catheterizations and stents over the last 5 years, the specifics of which are difficult to interpret Congestive heart failure I50.9 Chronic respiratory failure J96.10 CKD (chronic kidney disease) stage 3, GFR 30-59 ml/min N18.3 DM2 (diabetes mellitus, type 2) E11.9 COPD (chronic obstructive pulmonary disease) J44.9 NSTEMI (non-ST elevated myocardial infarction) I21.4 Pneumonia, pneumococcal J13 COPD exacerbation J44.1 Acute respiratory failure with hypoxia J96.01 Surgical History Past Surgical History (Updated 06/21/21 @ 00:01 by Shane Maddox) History of left heart catheterization (03/18/19) Z98.890 Segmented LV systolic dysfunction- Mild; LVEF: by LV gram 50-55 %; Elevated Left Ventricular End Diastolic Pressure; Non obstructive coronary arteries; Widely patent LCX and LAD stents; Aortic Valve Stenosis- Mild per [facility] 03/18/19 Presence of implantable cardioverter-defibrillator (ICD) (~2015) Z95.810 Per [place] records, AICD in 2006, revision 2004 and 2010, then 2016 S/P CABG x 3 (1996) Z95.1 SINGH to LAD, SVG to PDA, SVG to PLV [facility] 1996 Stented coronary artery (12/30/18) Z95.5 TAXUS ODILON to RCA 2005 in [place]; 2.5 x 13 mm Cypher to septal well shooter 06/2008;Successful PTCA/ODILON distal LCX with a 2.25 x 20 Promus Synergy stent,10/26/2018 per CHANELL @ [facility].12/30/18: Successful PTCA/DESmid LAD with a 2.25 x 28 Promus Synerg Hx of cholecystectomy Z90.49 Significant Family History Family History Mother Myocardial infarction Diabetes COPD (chronic obstructive pulmonary disease) Father Myocardial infarction Sister Breast cancer Colon cancer Sister Breast cancer Sister Cancer lung cancer Sister Cancer skin cancer Brother Myocardial infarction Bleeding disorder clot in heart Brother Diabetes Social History Smoking History Smoking Status: Former smoker Years Smokin (stopped nu 2006) Packs Smoked per Day: 4 (3-4) Alcohol Use Alcohol Usage: No Occupation Occupation (List type of work in comments):: Retired Functioning ADL/IADL Current Ability Current Ability: Independent: Self-Care (e.g.,grooming, dressing, & bathing), Independent: Ambulation, Independent: Transfer and Independent: Household tasks (e.g., light meal prep, laundry, shopping) Pt Functioning Prior to Problem Prior Functioning: Self-Care (e.g.,grooming, dressing, & bathing): Independent, Ambulation: Independent, Transfer: Independent and Household tasks (e.g., light meal prep, laundry, shopping): Independent Social Environment Status Marital Status: Current Living Arrangements Living Environment:: Spouse Children How many children do you have?: 6 Do any of your children live nearby?: Yes Safety Do you feel safe in your surroundings?: Yes Assistance Do you need any assistance at home?: no Review of Systems Review of Systems Review of Systems Respiratory: Reports Cough, Pleuritic Pain, SOB upon Exertion, Sputum production, Wheezing, Appetite, Normal, Dizziness/Lightheadedness and Fatigue; Denies SOB at Rest, PVD, Sexual changes or Sleep, Normal Pain Is Patient Pain Free?: Yes Risk Factor Assessment Chief Complaint Chief Complaint: COPD Vital Signs Pulse Rate: 43 Pulse Ox: 98 Blood Pressure: 142/69 Diabetes Diabetic History: Type II Obesity Height: 5 ft 8 in Weight:: 181 lb Weight in Pounds: 181.0 lbs Body Mass Index (BMI): 27.5 Nutritional Referral for Obesity: No Physical Activity Physical Inactivity: Reg Exercise 30 min/day Risk Stratification Risk Guidelines: Moderate Risk: Risk Factor for Smoking, Risk Factor for Obesity, Risk Factor for Sedentary Lifestyle and Risk Factor for Depression and Highest Risk: Risk Factor for Dyslipidemia, Risk Factor for Diabetes and Risk Factor for Hypertension For Smoking Smoking Risk Guidelines For Dyslipidemia Dyslipidemia Risk Guidelines For Diabetes Mellitus Diabetes Risk Guidelines For Obesity/Overweight Obesity/Overweight Risk Guidelines For Hypertension Hypertension Risk Guidelines For Sedentary Lifestyle Sedentary Lifestyle Risk Guidelines For Depression Depression Risk Guidelines Motivation Motivation to Participate On a scale of 1 to 10, how prepared are you to commit to attending program?: 8 What do you see as barriers to successfully being able to complete the program?:nothing What do you see as the benefits of succesfully completing the program? In other words, what do you hope to get out of participating in the program?: lungs clear Are there issues you are dealing with that will interfere with completing the program?: no Do you have a spouse or signficant other, family or friends who will help support you to complete the program?: yes Diagnostic Data Review Pulmonary Function Test FEV1:: 56 FVC:: 63 FEV1/FVC%:: 88 07/08/24 1430 er BS, RVT> Date _ Gerardo Maddie BS, RVT Outcome assessment reviewed. Exercise plan approved as documented. Treatment plan and goals support patient needs/abilities. Continue with current plan. I certify the patient demonstrates improvement and remains willing and capable of participation. the patient continues to benefit from pulmonary services/training. The patient may continue at currentintensity, endurance andmodality and progress per protocol. 07/12/24 1844 Cosign Signature: Date Scout Lebron MD CC: ~ Signed [facility]03-07-2025 NoteDischarge Instructions Discharge Summary [address] [place] [address] [id number] 04/23/2024 Patient: BRYN AYON Sex: Male : 1945 Age: 78y Thank you [facility] visiting [facility]. You have been evaluated today by Feliz Campa D.O. for the following condition(s): Principal Diagnosis COPD. INSTRUCTIONS Prescription Medications: prednisone 20 mg tablet: Take 2 tablet by mouth once a day for 5 days, dispense 10 tablet. Refills 0. Pharmacy: [facility]/pharmacy #[id number] - [address] [place], [place] [phone]. albuterol sulfate 2.5 mg/3 mL (0.083 %) solution for nebulization: Inhale 3 ml using nebulizer every four to six hours while awake for 30 days, dispense 180 ml. Refills 1. Notes PRN for shortness of breath orwheezing. Pharmacy: [facility]/pharmacy #[id number] - [address], [place] [phone]. Follow-up: Follow up with your healthcare provider in two days. Call for an appointment. You have been given the following additional information: COPD Flare-Up Viral Bronchitis (Adult) 1 of 9 Discharge Instructions Patient Signature Facility [facility] Date/Time General Instructions with ExitWriter [place] [id number] [place] [address] [id number] 04/23/2024 Patient: BRYN AYON Sex: Male : 1945 Age: 78y Thank you for visiting [facility]. You have been evaluated today by Feliz Campa D.O. for the following condition(s): Principal Diagnosis COPD. INSTRUCTIONS Prescription Medications: prednisone 20 mg tablet: Take 2 tablet by mouth once a day for 5 days, dispense 10 tablet. Refills 0. Pharmacy: [facility]/pharmacy #[id number] - [address], [place] [phone]. albuterol sulfate 2.5 mg/3 mL (0.083 %) solution for nebulization: Inhale 3 ml using nebulizer every four to six hours while awake for 30 days, dispense 180 ml. Refills 1. Notes PRN for shortness of breath orwheezing. Pharmacy: [facility]/pharmacy #[id number] - [address], [place] [phone]. Follow-up: Follow up with your healthcare provider in two days. Call for an appointment. 2 of 9 Discharge Instructions ADDITIONAL INFORMATION COPD Flare-Up You have had a flare-up of your COPD. COPD (chronic obstructive pulmonary disease) is a common lung disease. It causes your airways to get irritated and narrower. This makes it harder for you to breathe. Emphysema and chronic bronchitis are both types of COPD. This is a long-term (chronic) condition. This means you always have it. Sometimes it gets worse. When this happens, it's called a flare-up. Symptoms of COPD People with COPD may have symptoms most of the time. In a flare-up, your symptoms get worse. These symptoms may mean you are having a flare-up: Shortness of breath, shallow or rapid breathing, or wheezing that gets worse Lung infection 3 of 9 Discharge Instructions Cough that gets worse More mucus (or sputum), thicker mucus, or mucus of a different color Tiredness, less energy, or trouble doing your normal activities Fever Chest tightness Your symptoms don't get better even when you use your normal medicines, inhalers, and nebulizer Trouble talking You feel confused Causes of flare-ups Unfortunately, a flare-up can happen even if you did everything right. And even if you followed your healthcare provider's instructions. Some causes of flare-ups are: Cold weather Smoking or secondhand smoke Use of e-cigarettes or vaping products Colds, the flu, or respiratory infections Air pollution Sudden change in the weather Dust, vapors, gases, irritating chemicals, or strong fumes Not taking your medicines as prescribed Indoor pollution such as burning wood, smoke from home cooking, or heating fuels Home care Here are some things you can do at home to treat a flare-up: Keep calm and try not to panic. This makes it harder to breathe, and keeps you from doing the rightthings. Don't smoke or be around others who are smoking. If you smoke, quit. Smoking is the main cause of COPD. Quitting will help you be able to better manage your COPD. Don't use e- cigarettes or vaping products either. Ask your healthcare provider about ways to help you quit smoking. Try to drink more fluids than normal during a flare-up, unless your healthcare provider has told you not to because of heart and kidney problems. More fluids can help loosen the mucus. Eat a healthy, balanced diet. This is important to staying as healthy as possible. So is trying to stay at your ideal weight. Being overweight or underweight can affect your health. Make sure you have a lot of fruits and vegetables every day. And also eat balanced portions of whole grains, l (more content not included)...[facility]12-24-2024 Note Discharge Instructions Discharge Summary [place] [address] [address] [id number] 02/10/2024 [id number] Sex: Male : 1945 Age: 78y Thank you for visiting [facility]. You have been evaluated today by Feliz Campa D.O. for the following condition(s): Principal Diagnosis Weakness. INSTRUCTIONS (You did have an intermittent episode of left bundle-branch block, which is a new heart rhythm thatI could not find previously documented in her chart. Please follow-up with cardiology consult given. Please stop taking cough medicine. Please also follow up with primary care and return for any new or worsening symptoms.). Follow-up: Follow up with your healthcare provider in two days. Call for an appointment. Follow-up with: Radha Fish MD, [facility] [place], Cardiology, Phone: [phone], [address] [place] [address]. Follow up in three days. Call for an appointment. You have been given the following additional information: Weakness with Uncertain Cause Patient Signature 1 of 4 Discharge Instructions Facility [facility] Date/Time General Instructions with ExitWriter [address] [address] [id number] 02/10/2024 Patient: BRYN AYON Sex: Male : 1945 Age: 78y Thank you for visiting [facility]. You have been evaluated today by Feliz Campa D.O. for the following condition(s): Principal Diagnosis Weakness.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
--- NOTE | 2024-08-31 01:46 | RAD_ITS ---
PROCEDURE: CHEST 1 VIEW (PORTABLE) 08/31/2024 REASON FOR EXAM: DYSPNEA TECHNIQUE: Frontal view of the chest. COMPARISON: 06/11/2021 FINDINGS: Normal heart size. Status post AVR. Unremarkable cardiac device. Mild interstitial prominence has developed, possibly edema. No consolidation, effusion or pneumo thorax. RAD/Chest 1 View (Portable) IMPRESSION: Possible mild interstitial edema. Consider follow up imaging. Reading [facility]
[2024-08-31 02:01] LABS: Anion Gap 13 (5-15); BUN 41 mg/dL (4-19); BUN/Creat Ratio 21.3 RATIO (10-20); Calcium,Total 9.8 mg/dL (7.6-11.0); Carbon Dioxide 25.3 mmol/L (21.0-32.0); Chloride 103 mmol/L (98-108); Estimated Creatinine Clearance 32.85 ml/min (50-250); Glucose 156 mg/dL (70-99); Magnesium 2.1 mg/dL (1.5-2.2); Potassium 4.5 mmol/L (3.3-5.1); Pro- Brain NATRIURETIC PEPTIDE 2407 pg/mL (<=1800)
--- NOTE | 2024-08-31 02:36 | PCM.HP.STD ---
HPI - General General Date of Admission: 08/31/24 Date of Service: 08/31/24 Chief Complaint: Shortness of breath HPI Narrative VIVEK ZACARIAS, is a 78 M who presents to the emergency room with chief complaint of shortness of breath. Patient has significant past medical history of coronary artery disease, COPD, congestive heart failure and history of lung mass who presents to the emergency room in respiratory failure. Patient states at 11:00 earlier this evening he was unable to catch his breath and was hypoxic and then decided he needed to come to the hospital. Patient denies any recent fevers or chills no nausea, vomiting, or diarrhea. CBC is unremarkable, BMP shows elevated creatinine 1.9 and BNP is elevated at 2400. Chest x-ray reveals mild interstitial edema. Patient responded to BiPAP therapy in the emergency room was feeling more comfortable and less short of breath and will be admitted to PCU for impending respiratory failure secondary to COPD and CHF. [facility] Medical History (Updated 08/31/24 @ 02:[address] Michael Berger, DO) History of coronary artery disease COPD (chronic obstructive pulmonary disease) Type 2 diabetes mellitus Lung mass Smoking Stage 3 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 History of ventricular fibrillation Carpal tunnel syndrome, bilateral Pulmonary nodules Hyperlipidemia Essential hypertension Ischemic cardiomyopathy DEMAR (obstructive sleep apnea) Atherosclerosis of coronary artery bypass graft(s) without angina pectoris Atherosclerosis of coronary artery of [place] heart Congestive heart failure Chronic respiratory failure CKD (chronic kidney disease) stage 3, GFR 30-59 ml/min DM2 (diabetes mellitus, type 2) COPD (chronic obstructive pulmonary disease) NSTEMI (non-ST elevated myocardial infarction) Pneumonia, pneumococcal COPD exacerbation Acute respiratory failure with hypoxia Home Medications ?Medication ?Instructions ?Recorded ?Last Taken ?Type albuterol sulfate 90 mcg/actuation 2 puff inhalation Q4H PRN PRN 06/05/16 03/16/19 History aerosol inhaler Shortness Of Breath rosuvastatin 40 mg tablet 40 mg PO QHS cholesterol 06/05/16 03/15/19 History nitroglycerin 400 mcg/spray 1 spray sublingual Q3-5M PRN chest 12/04/18 03/16/19 Rx translingual pain #12 grams albuterol sulfate 2.5 mg/3 mL 2.5 mg inhalation Q6H PRN PRN Sob 03/16/19 03/16/19 History (0.083 %) solution for nebulization &/Or Wheezing carvedilol 6.25 mg tablet 6.25 mg PO BID hypertension 03/16/19 03/16/19 History clopidogrel 75 mg tablet 75 mg PO DAILY antiplatelet 03/16/19 03/16/19 History losartan 25 mg tablet 25 mg PO DAILY hypertension 03/16/19 03/16/19 History magnesium oxide 420 mg tablet 420 mg PO BID supplement 04/20/19 Unknown History spacer #1 ea 06/04/19 Unknown Rx pantoprazole 40 mg tablet,delayed 40 mg PO DAILY #60 tabs 06/08/19 Unknown Rx release cholecalciferol (vitamin D3) 25 2,000 unit PO DAILY supplement 06/10/19 Unknown History mcg (1,000 unit) tablet atorvastatin 20 mg tablet 05/27/21 Unknown History cyanocobalamin (vitamin B-12) 1,000 mcg PO DAILY 05/27/21 Unknown History 1,000 mcg tablet,extended release ezetimibe 10 mg tablet mg 05/27/21 Unknown History fluticasone propionate 50 intranasal 05/27/21 Unknown History mcg/actuation nasal spray,suspension amiodarone 200 mg tablet 200 mg PO DAILY 08/05/24 Unknown History insulin glargine-yfgn 100 unit/mL 4 unit subcut DAILY 08/31/24 Unknown History (3 mL) subcutaneous pen insulin lispro 100 unit/mL 2 unit subcut .weekly 08/31/24 Unknown History subcutaneous pen (Humalog KwikPen (U-100) Insulin) Allergy/AdvReac Type Severity Reaction Status Date / Time No Known Allergies Allergy Verified 08/31/24 00:57 Family History (Reviewed 08/05/24 @ 08:37 by Maria Luisa Potts FINANCIAL SYSTEMS ANALYST, FINANCIAL SYSTEMS ANALYST-C) Mother Myocardial infarction Diabetes COPD (chronic obstructive pulmonary disease) Father Myocardial infarction Sister Breast cancer Colon cancer Sister Breast cancer Sister Cancer lung cancer Sister Cancer skin cancer Brother Myocardial infarction Bleeding disorder clot in heart Brother Diabetes Surgical History History of left heart catheterization (03/18/19) Presence of implantable cardioverter-defibrillator (ICD) (~2015) S/P CABG x 3 (1996) Stented coronary artery (12/30/18) Hx of cholecystectomy Social History (Reviewed 08/05/24 @ 08:37 by Maria Luisa Potts FINANCIAL SYSTEMS ANALYST, FINANCIAL SYSTEMS ANALYST-C) adopted: No household members: significant other housing: house number of children: 4 current occupational status: retired current occupational exposures/hazards: No pets and animals: No history of recent travel: No sexually active: Yes Smoking Status: Former smoker quit date: 02/18/08 pack-years: 90 Tobacco: How many years used: 45 how long ago did patient quit smokin years ago second hand exposure: Yes alcohol intake: former year quit: 1983 substance use type: does not use diet: diabetic caffeine: Yes Type: coffee Number of servings: 2 eating out: 1-3 times/week during the past year weight has: remained stable what type of physical activity do you participate in: walking seatbelt use: always do you feel safe at home: Yes ROS Constitutional Constitutional: Denies chills or fever(s) Eyes Eyes: Denies blurry vision ENT HEENT: Denies abnormal hearing Cardiovascular Cardiovascular: Reports chest pain; Denies edema Respiratory/Chest Respiratory/Chest: Reports shortness of breath at rest Gastrointestinal Gastrointestinal: Denies abdominal pain Genitourinary Genitourinary: Denies dysuria Musculoskeletal Musculoskeletal: Denies back pain Integumentary Integumentary: Denies dry skin Neurologic Neurologic: Denies abnormal gait Psychiatric Psychiatric: Denies anxiety Vital Signs Vital Signs Vital Signs: 08/31/24 00:57 08/31/24 01:03 08/31/24 01:04 Temperature 97.7 F L 97.7 F L Temperature Source Oral Oral Pulse Rate 82 80 Respiratory Rate 27 H 23 H Respiratory Effort Short of Breath Accessory Muscle Use Respiratory Depth Shallow Respiratory Pattern Tachypnea Blood Pressure 190/95 H 190/95 H Blood Pressure Mean 126 126 Pulse Ox 90 94 Oxygen Delivery Method Nasal Cannula Nasal Cannula Nasal Cannula Oxygen Flow Rate (L/min) 3 5 5 Fraction of Inspired Oxygen (FIO2) 08/31/24 01:10 08/31/24 01:30 08/31/24 01:30 Temperature Temperature Source Pulse Rate 78 76 78 Respiratory Rate 20 H 18 20 H Respiratory Effort Respiratory Depth Respiratory Pattern Normal Normal Normal Blood Pressure Blood Pressure Mean Pulse Ox 98 Oxygen Delivery Method Oxygen Flow Rate (L/min) Fraction of Inspired Oxygen (FIO2) 30 08/31/24 02:00 08/31/24 02:27 Temperature 97.7 F L 96.9 F L Temperature Source Oral Pulse Rate 68 68 Respiratory Rate 18 20 H Respiratory Effort Respiratory Depth Respiratory Pattern Blood Pressure 180/82 H 170/76 H Blood Pressure Mean 114 107 Pulse Ox 100 100 Oxygen Delivery Method Bi-pap Oxygen Flow Rate (L/min) Fraction of Inspired Oxygen (FIO2) Weight Weight: 184 lb 1.376 oz Body Mass Index (BMI) 28.0 Physical Exam Const oriented x3 General Appearance: cooperative HEENT normocephalic and head/scalp atraumatic Neck no lymphadenopathy Lymph Lymphatic: no lymphadenopathy noted Resp normal air movement Resp Narrative: On BiPAP during examination Effort and Inspection: tachypneic, respiratory distress and labored Auscultation: Negative for rhonchi or wheezes Cardio regular rate, regular rhythm, S1 normal heart sound, S2 normal heart sound and no murmurs GI normal to inspection, nondistended, normoactive bowel sounds Extremity normal capillary refill General Extremity: Negative for edema Skin General Skin Exam: no breakdown Neuro no focal motor deficits and no sensory deficits noted Speech: speech normal Psych thought process normal, cooperative and affect normal Results Lab / Micro Data 08/31/24 01:09 08/31/24 01:09 Labs: Laboratory Results - last 24 hr 08/31/24 01:09: WBC 10.5, RBC 5.08, Hgb 15.3, Hct 47.2, MCV 92.9, MCH 30.1, MCHC 32.4, RDW Std Deviation 48.5 H, RDW Coeff of Momo 14.3, Plt Count 230, MPV 8.9, Immature Gran % (Auto) 0.600, Neut % (Auto) 57.9, Lymph % (Auto) 28.3, [place] % (Auto) 9.3, Eos % (Auto) 3.1, Baso % (Auto) 0.8, Absolute Neuts (auto) 6.1, Absolute Lymphs (auto) 2.96, Nucleated RBC % 0, Sodium 141, Potassium 4.5, Chloride 103, Carbon Dioxide 25.3, Anion Gap 13, BUN 41 H, Creatinine 1.92 H, Estim Creat Clear Calc 32.85 L, Est GFR (MDRD) Non-Af 35 L, BUN/Creatinine Ratio 21.3 H, Glucose 156 H, Calcium 9.8, Magnesium 2.1, NT pro BNP II 2407 H Imaging Radiology Impression Chest X-Ray 08/31/24 01:46 IMPRESSION: Possible mild interstitial edema. Consider follow up imaging. Reading Location: [place] [id number] Assessment & Plan Assessment/Plan (1) DEMAR (obstructive sleep apnea): (2) Chronic respiratory failure: QUALIFIERS: Respiratory failure complication: hypoxia Qualified Code(s): J96.11 - Chronic respiratory failure with hypoxia (3) Stage 3 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: (4) Congestive heart failure: QUALIFIERS: Heart failure type: combined systolic and diastolic Heart failure chronicity: chronic Qualified Code(s): I50.42 - Chronic combined systolic (congestive) and diastolic (congestive) heart failure (5) Essential hypertension: (6) Hyperlipidemia: (7) History of coronary artery disease: (8) Type 2 diabetes mellitus: PLAN: Plan 1 acute on chronic respiratory failure secondary to COPD and CHF.?Admit patient to progressive care unit, continue BiPAP initiated in the emergency room 2. CHF?obtain echocardiogram, Lasix 40 mg IV daily, repeat BMP, CBC and BNP in a.m. 3. COPD?BiPAP as above, add Solu-Medrol IV every 8 hours and DuoNeb breathing treatments every 4 hours as needed 4. Diabetes?continue routine home medications 5. Hyperlipidemia?continue statin 6. Hypertension?monitor continue routine home medications and may add as needed hydralazine if necessary 7. DVT prophylaxis?SCDs due to elevated creatinine will not use low molecular weight heparin Charges/Coding Visit Charges Inpatient E&M: 35496 Init Hosp L2
--- NOTE | 2024-08-31 02:44 | EX.ED.DYSGE1 ---
HPI History of Present Illness Chief Complaint: Shortness of Breath Informant: patient Narrative Narrative: Patient is a 78-year-old male with past medical history of type 2 diabetes chronic kidney disease COPD hypertension and congestive heart failure. He states that despite his history of CHF and COPD he does not typically need oxygen. The patient was having a sleep study performed this evening. They are monitoring his vitals and when he initially arrived and began the study he was in the mid 90s. However he was restless and could not sleep and eventually his pulse ox started to drop and it reached a value of 79%. Along with the hypoxia he was displaying signs of respiratory distress and therefore was sent to the ER for further evaluation [facility] Medical History (Updated 08/31/24 @ 04:[address] 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 angina pectoris Atherosclerosis of coronary artery of [place] heart Congestive heart failure Chronic respiratory failure CKD (chronic kidney disease) stage 3, GFR 30-59 ml/min DM2 (diabetes mellitus, type 2) COPD (chronic obstructive pulmonary disease) NSTEMI (non-ST elevated myocardial infarction) Pneumonia, pneumococcal COPD exacerbation Acute respiratory failure with hypoxia Home Medications ?Medication ?Instructions ?Recorded ?Last Taken ?Type albuterol sulfate 90 mcg/actuation 2 puff inhalation Q4H PRN PRN 06/05/16 03/16/19 History aerosol inhaler Shortness Of Breath rosuvastatin 40 mg tablet 40 mg PO QHS cholesterol 06/05/16 03/15/19 History nitroglycerin 400 mcg/spray 1 spray sublingual Q3-5M PRN chest 12/04/18 03/16/19 Rx translingual pain #12 grams albuterol sulfate 2.5 mg/3 mL 2.5 mg inhalation Q6H PRN PRN Sob 03/16/19 03/16/19 History (0.083 %) solution for nebulization &/Or Wheezing carvedilol 6.25 mg tablet 6.25 mg PO BID hypertension 03/16/19 03/16/19 History clopidogrel 75 mg tablet 75 mg PO DAILY antiplatelet 03/16/19 03/16/19 History losartan 25 mg tablet 25 mg PO DAILY hypertension 03/16/19 03/16/19 History magnesium oxide 420 mg tablet 420 mg PO BID supplement 04/20/19 Unknown History spacer #1 ea 06/04/19 Unknown Rx pantoprazole 40 mg tablet,delayed 40 mg PO DAILY #60 tabs 06/08/19 Unknown Rx release cholecalciferol (vitamin D3) 25 2,000 unit PO DAILY supplement 06/10/19 Unknown History mcg (1,000 unit) tablet atorvastatin 20 mg tablet 05/27/21 Unknown History cyanocobalamin (vitamin B-12) 1,000 mcg PO DAILY 05/27/21 Unknown History 1,000 mcg tablet,extended release ezetimibe 10 mg tablet mg 05/27/21 Unknown History fluticasone propionate 50 intranasal 05/27/21 Unknown History mcg/actuation nasal spray,suspension amiodarone 200 mg tablet 200 mg PO DAILY 08/05/24 Unknown History insulin glargine-yfgn 100 unit/mL 4 unit subcut DAILY 08/31/24 Unknown History (3 mL) subcutaneous pen insulin lispro 100 unit/mL 2 unit subcut .weekly 08/31/24 Unknown History subcutaneous pen (Humalog KwikPen (U-100) Insulin) Allergy/AdvReac Type Severity Reaction Status Date / Time No Known Allergies Allergy Verified 08/31/24 00:57 Family History Mother Myocardial infarction Diabetes COPD (chronic obstructive pulmonary disease) Father Myocardial infarction Sister Breast cancer Colon cancer Sister Breast cancer Sister Cancer lung cancer Sister Cancer skin cancer Brother Myocardial infarction Bleeding disorder clot in heart Brother Diabetes Surgical History History of left heart catheterization (03/18/19) Presence of implantable cardioverter-defibrillator (ICD) (~2015) S/P CABG x 3 (1996) Stented coronary artery (12/30/18) Hx of cholecystectomy Social History adopted: No household members: significant other housing: house number of children: 4 current occupational status: retired current occupational exposures/hazards: No pets and animals: No history of recent travel: No sexually active: Yes Smoking Status: Former smoker quit date: 02/18/08 pack-years: 90 Tobacco: How many years used: 45 how long ago did patient quit smokin years ago second hand exposure: Yes alcohol intake: former year quit: 1983 substance use type: does not use diet: diabetic caffeine: Yes Type: coffee Number of servings: 2 eating out: 1-3 times/week during the past year weight has: remained stable what type of physical activity do you participate in: walking seatbelt use: always do you feel safe at home: Yes ROS ROS ED Constitutional Constitutional ED: Denies chills or fever(s) Eyes Eyes: Denies change in vision ENT ENT ED: Denies sore throat Cardiovascular Cardiovascular: Reports orthopnea; Denies chest pain or palpitations Respiratory/Chest Respiratory/Chest: Reports cough, dyspnea, dyspnea on exertion and orthopnea Gastrointestinal Gastrointestinal: Denies abdominal pain, diarrhea, nausea or vomiting Genitourinary Genitourinary ED: Denies dysuria Musculoskeletal Musculoskeletal: Denies myalgias Integumentary Denies rash Neurologic Neurologic: Denies headache(s) Hematologic/Lymphatic Hematologic/Lymphatic: Denies easy bleeding or easy bruising Allergic/Immunologic Allergic/Immunologic ED: Denies mouth swelling or tongue swelling EXAM Physical Exam Const Vital Signs: 08/31/24 00:57 08/31/24 01:03 08/31/24 01:04 Temperature 97.7 F L 97.7 F L Temperature Source Oral Oral Pulse Rate 82 80 Respiratory Rate 27 H 23 H Respiratory Effort Short of Breath Accessory Muscle Use Respiratory Depth Shallow Respiratory Pattern Tachypnea Blood Pressure 190/95 H 190/95 H Blood Pressure Mean 126 126 Pulse Ox 90 94 Oxygen Delivery Method Nasal Cannula Nasal Cannula Nasal Cannula Oxygen Flow Rate (L/min) 3 5 5 Fraction of Inspired Oxygen (FIO2) 08/31/24 01:10 08/31/24 01:30 08/31/24 01:30 Temperature Temperature Source Pulse Rate 78 76 78 Respiratory Rate 20 H 18 20 H Respiratory Effort Respiratory Depth Respiratory Pattern Normal Normal Normal Blood Pressure Blood Pressure Mean Pulse Ox 98 Oxygen Delivery Method Oxygen Flow Rate (L/min) Fraction of Inspired Oxygen (FIO2) 30 08/31/24 02:00 08/31/24 02:27 Temperature 97.7 F L 96.9 F L Temperature Source Oral Pulse Rate 68 68 Respiratory Rate 18 20 H Respiratory Effort Respiratory Depth Respiratory Pattern Blood Pressure 180/82 H 170/76 H Blood Pressure Mean 114 107 Pulse Ox 100 100 Oxygen Delivery Method Bi-pap Oxygen Flow Rate (L/min) Fraction of Inspired Oxygen (FIO2) Positive well nourished and well developed Constitutional Narrative: Feeling moderate respiratory distress with tachypnea accessory muscle use pursed lip breathing and tripoding General Appearance ED: well developed; Negative for cyanotic or pallor HEENT HEENT Narrative: No tongue or lip swelling no oral lesions no airway edema or compromise Eyes PERRL and EOMs intact bilaterally General Eye ED: Negative for scleral icterus Neck supple and no JVD Chest Wall Chest Narrative: No bony deformity or subcutaneous emphysema noted Resp Resp Narrative: Patient is in moderate respiratory distress with tachypnea accessory muscle use pursed lip breathing and tripoding. Breath sounds are severely diminished throughout with faint wheeze and crackles in the bilateral bases Cardio regular rate and regular rhythm GI non-tender, non-distended and no masses GI Narrative: Soft nontender and nondistended with hypoactive bowel sounds. No voluntary guarding or rigidity or pulsatile mass. No fluid wave Auscultation: hypoactive bowel sounds Palpation: soft Extremity Extremity Narrative: +1 pitting edema to the bilateral lower extremities that is equal and symmetric Negative Homans' sign bilaterally Neuro oriented x3, CN's II-XII intact bilaterally and no sensory deficits noted Sensorium / Orientation: alert Psych mental status grossly normal Skin no rashes or lesions noted General Skin Exam: Negative for jaundice or pallor MDM MDM MDM Narrative Medical decision making narrative: Patient arrived to the ER in respiratory distress. With his history of COPD there is concern this is a COPD exacerbation versus pneumonia versus spontaneous pneumothorax versus CHF exacerbation. Secondary to his basic labs were obtained with chest x-ray. As there is a possibility his shortness of breath is also cardiac related and EKG was obtained. Labs revealed a creatinine of 1.92 which chart review reveals it is near his baseline creatinine. His proBNP is elevated at approximately 2400 which would correlate with physical exam and history of heart failure. Chest x-ray revealed changes consistent with vascular congestion without obvious infiltrate or pneumothorax. The patient was initially given Medrol and 2 DuoNeb treatments based on his history of COPD. However as he does have peripheral edema with faint crackles on exam and his work of breathing is increased I do feel he would benefit from BiPAP so therefore he was placed on this while awaiting his laboratory values and chest x-ray. The chest x-ray showed changes consistent with interstitial edema which would correlate with his physical exam and history as well. While on BiPAP the patient's work of breathing greatly improved and he was now able to rest comfortably and his pulse ox was in the mid 90s. At this time as he is now requiring increased noninvasive ventilation he is not safe for discharge and therefore medicine was contacted who agrees to accept the patient for care History & Record Review Discussion w/independent historian: Patient Lab Data Attestation: I reviewed the patient's lab results. Labs: Laboratory Results - last 24 hr 08/31/24 01:09 WBC 10.5 RBC 5.08 Hgb 15.3 Hct 47.2 MCV 92.9 MCH 30.1 MCHC 32.4 RDW Std Deviation 48.5 H RDW Coeff of Momo 14.3 Plt Count 230 MPV 8.9 Immature Gran % (Auto) 0.600 Neut % (Auto) 57.9 Lymph % (Auto) 28.3 Angelina % (Auto) 9.3 Eos % (Auto) 3.1 Baso % (Auto) 0.8 Absolute Neuts (auto) 6.1 Absolute Lymphs (auto) 2.96 Nucleated RBC % 0 Sodium 141 Potassium 4.5 Chloride 103 Carbon Dioxide 25.3 Anion Gap 13 BUN 41 H Creatinine 1.92 H Estim Creat Clear Calc 32.85 L Est GFR (MDRD) Non-Af 35 L BUN/Creatinine Ratio 21.3 H Glucose 156 H Calcium 9.8 Magnesium 2.1 NT pro BNP II 2407 H Radiography Diagnostic Testing: Clinical Impression(s) from Imaging Studies Chest X-Ray 08/31/24 01:46 IMPRESSION: Possible mild interstitial edema. Consider follow up imaging. Reading Location: [facility]- Chest x-ray as interpreted by the emergency medicine physician reveals vascular congestion consistent with pulmonary edema without acute infiltrate or pneumothorax Management Discussion w/another healthcare provider: Hospitalist Discharge Plan Dx/Rx/DC Orders Clinical Impression: Acute respiratory failure with hypoxia, Congestive heart failure, Essential hypertension, Stage 3 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, Type 2 diabetes mellitus, Hyperlipidemia Disposition Disposition: Acute Care Hospital [facility] Discharge Date/Time: 08/31/24 03:16
--- OUTSIDE RECORDS SUMMARY | 2024-08-31 03:02 | XMS RPT_ITS | CCD ---
Author Organization [facility] Care Team Providers Care Medical Sales Associate Name Role Phone Dr. Ghassan Munoz Primary Care Provider [phone] Dr. Ghassan Munoz Referring Provider [phone] MADAY Ceron Attending Provider [phone] Ghassan Munoz Primary Care Provider [phone] Dr. Ghassan Munoz Referring Provider [phone] MADAY Ceron Attending Provider [phone] [place] Primary Care Provider UnavailDr. Brandon Feliciano Emergency Provider Dr. Bryan Gonzalez Admit Provider Dr. Magno Sheppard Attending Provider Dr. Magno Sheppard Other Provider DR JUDITH WEAVER Admitting Unavailable DR JUDITH WEAVER Attending Unavailable DR JUDITH WEAVER Primary Care Unavailable [facility] Primary Care Physician [facility] Primary Care Unavailable ELIEZER PRO MD Attending [...] Attending Unavailable FELIZ CAMPA Ad[place] [facility] [place] [place] [place] Referring Provider Unavailable DAVID JONES Attending Provider DAVID JONES Referring Provider DAVID JONES Attending Provider DAVID JONES Referring [place] [facility] [place] [place] Referring Provider Unavailable Maria Luisa Bowens Attending Provider [facility], [place] Primary Care Unavailable RUDI WALLS Attending Unavailable RUDI WALLS Ref[place] [facility] [facility] [place] Referring Unavailable Maria Luisa Potts NP Attending [facility] [place] [facility] [place] [facility] [place] [facility] Un[facility] [place] Ref[facility] [place] [facility] Unavailable Maria Luisa Potts NP Attending Unavailable Katlyn DRYWALL INSTALLERMaria Luisa Referring [place]available [facility] Primary Care Unavailable RUDI WALLS Attending Unavailable RUDI WALLS Referring [place]available [facility] Primary Care Unavailable RUDI WALLS Attending Unavailable [...] 2019 3:49pm Start: 03-16-2019 End: 08-05-2024 Ipratropium Shellman 1 SPRAY spray,non-aerosol Discontinued 2 NMA NASAL [...] June 08, 2019 12:00am polyethylene glycol 3350 12014 mg powder for oral solution (1 source) [...] 05, 2016 12:00am August 05, 2024 8:17am [facility] benzonatate 100 mg oral capsule (9 sources) [...] 2 mg/ml oral solution (18 sources) Uncompetitive V-ixchwx-D-aspartate Receptor Antagonist, Sigma-1 Agonist, alpha-1 Adrenergic Agonist Start: 03-16-2019 End: 06-08-2019 take 1 mL by mouth every six hours Wwdfkzdcdvdzt-Oh-Zwygkndwuwt Discontinued 5 ML PO EVERY 6 HOURS March 16, 2019 3:49pm March 18, 2019 12:45pm Start: 03-16-2019 End: 06-08-2019 take 1 mL by mouth every six hours as needed for cough Ndpczletzxgzk-Zo-Srconvjywbr 473 ML liqu id Discontinued 5 mL [...] 12:00am August 05, 2024 8:21am allergies nystatin 038201 unt/ml oral suspension (9 sources) Polyene Antifungal [...] days 10 mg daily 3 days Tiotropium Shellman (20 sources) Anticholinergic Start: 06-10-2019 End: 08-05-2024 Tiotropium Shellman 2.5 mcg/actuation mist Discontinued 2 NMA INHALATION TWICE A DAY June 10, 2019 10:59am August 05, 2024 8:20am copd Start: 06-10-2019 End: 08-05-2024 Tiotropium Shellman 2.5 mcg/actuation mist Discontinued 2 NMA INHALATION TWICE A DAY June 10, 2019 10:59am August 05, 2024 8:20am Start: 06-10-2019 Tiotropium Bro mide 2.5 mcg/actuation mist Active 2 NMA INHALATION TWICE A DAY June 10, 2019 10:59am Start: 06-10-2019 take 1 puff(s) by in halation twice daily Tiotropium Shellman Active 2 PUFF INHALATION TWICE A DAY June 10, 2019 10:59am Start: 03-16-2019 End: 06-10-2019 Tiotropium Shellman 4 GM mist Discontinued 2 NMA INHALATION DAILY March 16, 2019 4:14pm June 10, 2019 10:59am copd Start: 03-16-2019 End: 06-10-2019 Tiotropium Shellman 4 GM mist Discontinued 2 NMA INHALATION DAILY March 16, 2019 4:14pm June 10, 2019 10:59am Start: 03-16-2019 End: 06-10-2019 take 1 puff(s) by inhalation once daily Tiotropium Shellman Discontinued 2 PUFF INHALATION DAILY March 16, 2019 4:14pm June 10, 2019 10:59am Start: 12-24-2018 End: 03-16-2019 take 1 puff(s) by inhalation once daily Tiotropium Shellman (Spiriva Respimat) 2.5 mcg/actuation mist Discontinued 2 PUFF INHALATION DAILY December 24, 2018 9:57am March 16, 2019 4:14pm Start: 12-24-2018 End: 03-16-2019 take 2.5 ug by inhalation once daily Tiotropium Shellman (Spiriva Respimat) 2.5 mcg/actuation mist Discontinued 2 NMA INHALATION DAILY 05 28December 24, 2018 1:00am March 16, 2019 4:14pm Chronic obstructive pulmonary disease, unspecified Start: 12-24-2018 End: 03-16-2019 take 2.5 ug by inhalation once daily Tiotropium Shellman (Spiriva Respimat) 2.5 mcg/actuation mist Discontinued 2 [...] 04-23-2024 Chronic Other aftercare (1 source) 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; Translations: [Other senior care (current) drug therapy] Onset: 04-23-2024 Episodic Other aftercare (1 source) senior care (current) use of aspirin; Translations: [supervisor intermediates (current) use of aspirin] Onset: 04-23-2024 Episodic Other aftercare (1 source) senior care (current) use of oral hypoglycemic drugs; Translations: [supervisor intermediates (current) use of oral hypoglycemic drugs] Onset: 04-23-2024 Episodic Other aftercare (1 source) senior care (current) use of insulin; Translations: [senior care (current) use of insulin] Onset: 04-23-2024 Episodic [...] Facility Pulmonary Visit Reporton Pulmonary Visit Report [facility] [address] [place] [address] OFFICE VISIT Date of Service: 08/05/24 MR#: [id number] Acct: [id number] Name: BRYN AYON Rep #: [id number] : 1945 Provider: TACO Potts Age/Sex: 78/M Location: [facility] Status: Signed Assessment and Plan Assessment and [...] Additional Comments: This note was generated with gestigon dictation software. It may contain incorrect words, [...] (more content not included)... 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 Normal [facility] [place] - Individual Treatment Pl anon 07-08-2024 [place] - Individual Treatment Plan [facility] Pulmonary Rehab Reports [address] [place] [address] [place] - Individual Treatment Plan MR#: [id number] Acct: [id number] Name: BRYN AYON Rep #: [id number] : 1945 78 From: Gerardo Perkins BS, RVT PCP: [facility] General Information2 General Information Admitting Diagnosis: COPD PFT FEV1:: 56 FVC:: 63 FEV1/FVC%:: 88 Personal Learning Style/Barriers Personal Learning Style:: Audio/Visual Barriers to Learning: None Education/Goals [place] Patient Goals: Increase muscle strength: Initial Assessment, [...] Exercise Modalities: Treadmill, Rower, Schwinn Airdyne AD-7, C4RoboFit Stepper, Surefire Social Pro-II Ergometer and Surefire Social Lateral [place] Intensity: 60-80% of age predicted maximum heart [...] CHEST 2 VIEWSon 04-23-2024 CHEST [address] [address] Patient: BRYN AYON Phone#: : 1945 Age: 78 Gender: M Pt. Type: ER Account: [id number] Location: 052 Ordering: FELIZ CAMPA Exam Date: 04/23/2024/11:51 Family Phys: Charge Code: [id number] Physician: [place] Order #: [id number] Dose#: PROCEDURE: X-RAY CHEST 2 VIEWS COMPARISON: [facility], XR, CHEST 1 VIEW, 01/08/2024, 17:23. [facility], XR, CHEST 1 VIEW, 02/10/2024, 13:49. [...] Teresa Garcia MD on 04/23/2024 at 12:14 [facility] ED MED ADMINISTRATION DETAIL on 04-23-2024 ED MED ADMINISTRATION DETAIL Roll Cleaner Medication Administration Record [address] [address] [id number] 04/23/2024 Patient: BRYN AYON Sex: Male : 1945 Age: 78y MEASUREMENTS: Wt: 80.7 kg, Ht/Hector: 68.0 in, BMI: 27.06 ALLERGIES: No known drug allergies Medication Ordered Medication Administration Date/Time 1 of 1 [facility] ED NURSES CLINICAL NOTEon ED NURSES CLINICAL NOTE Nurse Narrative Nurse Clinical Narrative [address] [address] [id number] 04/23/2024 Patient: BRYN AYON Sex: Male : 1945 Age: 78y Primary Insurance: MEDICARE OUTPATIENT Policy Number: [id number] Subscriber: Other Secondary Insurance: [employer] OUTPATIENT Policy Number: [id number] Subscriber: Other Disposition: Discharge Disposition Decision Time: [...] once a day . -- 12:04/23/24 Noe KennedyPh. aspirin 81 mg tablet,delayed release: once a [...] R.N. Implantation (more content not included)... Normal [facility] ED ORDER SHEET (CPOE ONLY)on 04-23-2024 ED ORDER SHEET (CPOE ONLY) Order Sheet Order Sheet [address] [address] [id number] 04/23/2024 Patient: BRYN AYON Sex: Male : [...] D.O. (04/23/2024 12:45 EST)] 1 of 1 [facility] ED PHYSICIAN CLINICAL REPORT on 04-23-2024 ED PHYSICIAN CLINICAL REPORT Narrative Physician Clinical Narrative [address] [address] [id number] 04/23/2024 Patient: BRYN AYON Sex: Male : 1945 Age: 78y Primary Insurance: MEDICARE OUTPATIENT Policy Number: [id number] Subscriber: Other Secondary Insurance: [employer] OUTPATIENT Policy Number: [id number] Subscriber: Other Disposition: Discharge Disposition Decision Time: [...] Date: 04/23/2024 12:14:00 EST MsgRcvd: 04/23/2024 12:18 [place] [address] Narrative Patient: BRYN AYON Phone#: : 1945 Age: 78 Gender: M Pt. Type: ER Account: [id number] Location: 052 Ordering: FELIZ CAMPA Exam Date: 04/23/2024/11:51 Family Phys: Charge Code: 620341 Physician: [place] Order #: [id number] Dose#: PROCEDURE: X-RAY CHEST 2 VIEWS COMPARISON: [facility], XR, CHEST 1 VIEW, 01/08/2024, 17:23. [facility], XR, CHEST 1 VIEW, 02/10/2024, 13:49. INDICATIONS: Cough. FINDINGS: LUNGS: Normal. No significant pulmonary parenchymal abnormalities. VASCULATURE: Normal. Unremarkable pulmonary vasculature. CARDIAC: Left chest wall cardiac device with single lead. Aortic valve stent present. MEDIASTINUM: Mediastinal surgical clips present. Aortic arch calcifications. PLEURA: Normal. No effusion or pleural thickening. BONES: Degenerative changes o (more content not included)... Normal [facility] ED SUPER BILLon 04-23-2024 ED SUPER BILL [place] [id number] [facility] [place] [address] [id number] 04/23/2024 Patient: BRYN AYON Sex: Male : 1945 Age: 78y Item Professional Category Description Facility Code Code Quantity Fee Total Nurse/E/M EMERGENCY 766507 1 $0.00 $0.00 DEPARTMENT VISIT MODERATE SEVERITY (75315-93) Grand Total $0.00 Providers Feliz Campa D.O. Chief Complaint WHEEZING. Principal Diagnosis COPD. ICD-10 Codes 1 of 2 [facility] J44.9: Chronic obstructive pulmonary disease, unspecified 2 of 2 Normal [facility] ED VISIT SUMMARYon ED VISIT SUMMARY Visit Overview Visit Overview [address] [place] [address] [id number] 04/23/2024 Patient: BRYN AYON Sex: Male : [...] CLINICAL IMPRESSION COPD 4 of 4 Normal [facility] ED VITALS FLOW SHEETon 04-23 ED VITALS FLOW SHEET Vitals Vital Sign Flow Sheet [address] [address] [id number] 04/23/2024 [id number] Sex: Male : 1945 Age: 78y Measurements Wt: 80.7 kg, Ht/Hector: 68.0 in, BMI: 27.06 Measured Time BP MAP HR RR O2Sat ETCO2 Temp Pain GCS RTS 12:45 04/23/2024 104/54 71 89 18 97% 97.6 F 0 11:49 04/23/2024 147/63 91 60 18 92% 97.6 F 0 1 of 1 Normal [facility] CBC + DIFFon 02-10-2024 Baso # 0.03 x10EE3/UL Normal 0.00 - 0.10 [facility] Comment on above: Performed By: #### 2 46667 #### [facility],[address] [place] [address] Basophils/100 WBC (Bld) 0.4 % Normal 0.0 - 2.0 [facility] Comment on above: Performed By: #### 2 08532 #### [facility],[address] [place] [address] CBC + DIFF Normal [facility] Comment on above: Result Comment: CBC- COMPLETE BLOOD COUNT Performed By: #### 2 67694 #### [facility],[address] [place] [address] EO # 0.11 x10EE3/UL Normal 0.00 - 0.50 [facility] Comment on above: Performed By: #### 2 26304 #### [facility],[address] [place] [address] Eosinophils/100 WBC (Bld) 1.4 % Normal 0.0 - 7.0 [facility] Comment on above: Performed By: #### 2 18208 #### [facility],[address] [place] [address] Erythrocyte distribution width (RBC) [Ratio] 14.2 % Normal 12.0 - 15.6 [facility] Comment on above: Performed By: #### 2 63149 #### [place] [address] Hematocrit (Bld) [Volume fraction] 47.9 % Normal 40.0 - 52.0 [facility] Comment on above: Performed By: #### 2 92258 #### [facility],[address] [place] [address] Hemoglobin (Bld) [Mass/Vol] 16.2 g/dL Normal 13.0 - 17.5 [facility] Comment on above: Performed By: #### 2 25610 #### [facility],[address] [place] [address] Lymph # 1.38 x10EE3/UL Normal 0.80 - 2.80 [facility] Comment on above: Performed By: #### 2 19547 #### [facility],[address] [place] [address] Lymphocytes/100 WBC (Bld) 16.9 % Low 20.0 - 45.0 [facility] Comment on above: Performed By: #### 2 62395 #### [facility],[address] [place] [address] MANUAL DIFF N/A Normal [facility] Comment on above: Performed By: #### 2 12321 #### [facility],[address] [place] [address] MCH (RBC) [Entitic mass] 31 pg Normal 27 - 33 [facility] Comment on above: Performed By: #### 2 69077 #### [facility],[address] [place] [address] MCHC 34 X10 3 Normal 32 - 36 [facility] Comment on above: Performed By: #### 2 47970 #### [facility],[address] [place] [address] MCV (RBC) [Entitic vol] 92 fL Normal 81 - 98 [facility] Comment on above: Performed By: #### 2 62657 #### [facility],[address] [place] [address] Corson # 0.73 x10EE3/UL Normal 0.20 - 1.00 [facility] Comment on above: Performed By: #### 2 00848 #### [facility],[address] [place] [address] MONOS % 9.0 % Normal 0.0 - 10.0 [facility] Comment on above: Performed By: #### 2 66476 #### [facility],[address] [place], [place] [address] Morphology Alvaro (Bld) [Interp] REVIEWED Normal [facility] Comment on above: Performed By: #### 2 51509 #### [facility],[address] [place] [address] Neut # 5.90 x10EE3/UL Normal 1.50 - 7.10 [facility] Comment on above: Performed By: #### 2 40549 #### [facility],[address] [place] [address] Neutrophils/100 WBC (Bld) 72.3 % Normal 46.0 - 76.0 [facility] Comment on above: Performed By: #### 2 54979 #### [facility],[address] [place] [address] PLATELET 260 x10EE3/UL Normal 150 - 450 [facility] Comment on above: Performed By: #### 2 93633 #### [facility],[address] [place] [address] Platelet mean volume (Bld) [Entitic vol] 6.7 fL Normal 6.4 - 10.5 [facility] Comment on above: Result Comment: AUTO MATED DIFFERENTIAL Performed By: #### 2 37208 #### [facility],[address] [place] [address]75 RBC 5.24 x 10EE6/UL Normal 4.50 - 6.00 [facility] Comment on above: Performed By: #### 2 46711 #### [facility],[address] [place] [address] WBC 8.2 x 10EE3/UL Normal 4.5 - 10.8 [facility] Comment on above: Performed By: #### 2 67402 #### [facility],[address] [place] [address] CHEST 1 VIEWon 02-10-2024 CHEST 1 VIEW [place] [address] Patient: BRYN AYON Phone#: : 1945 Age: 78 Gender: M Pt. Type: ER Account: [id number] Location: 052 Ordering: FELIZ LOKESH Exam Date: 02/10/2024/13:49 Family Phys: Charge Code: 987653 Physician: [place] Order #: [id number] Dose#: PROCEDURE: X-RAY CHEST 1 VIEW COMPARISON: [facility], , CHEST 1 VIEW, 01/08/2024, 17:23. [...] Lujan MD on 02/10/2024 at 14:20 Normal [facility] CMP with eGFRon 02-10-2024 AGE 78 years Normal [facility] Comment on above: Performed By: #### 2 10952 ####[facility],[address] [place] [address] Albumin [Mass/Vol] 3.9 g/dL Normal 3.4 - 5.0 [facility] Comment on above: Performed By: #### 2 19458 ####[facility],[address] [place] [address] Albumin/Globulin [Mass ratio] 1.1 {ratio} Normal 0.9 - 1.6 [facility] Comment on above: Performed By: #### 2 52673 ####[facility],[address] [place] [address] ALK PHOS 113 U/L Normal 46 - 116 [facility] Comment on above: Performed By: #### 2 45175 ####[facility],[address] [place] [address] 89342 ALT [Catalytic activity/Vol] 34 U/L Normal 16 - 63 [facility] Comment on above: Performed By: #### 2 75836 ####[facility],[address] [place] [address] Anion gap [Moles/Vol] 13 mmol/L Normal 10 - 20 [facility] Comment on above: Performed By: #### 2 84511 ####[facility],[address] [place] [address] AST [Catalytic activity/Vol] 29 U/L Normal 15 - 37 [facility] Comment on above: Performed By: #### 2 50492 ####[facility],[address] [place] [address] B/C RATIO 12 ratio Normal 0 - 30 [facility] Comment on above: Performed By: #### 2 05937 ####[facility],[address] [place] [address] Bilirubin [Mass/Vol] 1.3 mg/dL High 0.2 - 1.0 [facility] Comment on above: Performed By: #### 2 74531 ####[facility],[address] [place] [address] Calcium [Mass/Vol] 9.5 mg/dL Normal 8.5 - 10.1 [facility] Comment on above: Performed By: #### 2 76542 ####[facility],[address] [place] [address]31 Chloride [Moles/Vol] 101 mmol/L Normal 98 - 107 [facility] Comment on above: Performed By: #### 2 55660 ####[facility],[address] [place] [address] CMP with eGFR Normal [facility] Comment on above: Result Comment: COMP REHENSIVE METABOLIC PANEL Performed By: #### 2 18761 ####[facility],[address] [place] [address]67 CO2 [Moles/Vol] 31.4 mmol/L Normal 21.0 - 32.0 [facility] Comment on above: Performed By: #### 2 57368 ####[facility],[address] [place] [address]35 Creatinine [Mass/Vol] 2.49 mg/dL High 0.70 - 1.30 [facility] Comment on above: Performed By: #### 2 08547 ####[facility],[address] [place] [address]8705 eGFR 25 ML/MINUTE Low 60 - 999 [facility] Comment on above: Performed By: #### 2 76690 ####[facility],[address] [place] [address]47 eGFR(AA) 30 ML/MINUTE Low 60 - 999 [facility] Comment on above: Result Comment: ACCO RDING TO THE NATIONAL KIDNEY DISEASE EDUCATION PROGRAM(NKDE), A NORMAL eGFR IS A VALUE GREATER THAN OR EQUAL TO 60 ML/MIN/1.73 SQ METERS. CHRONIC KIDNEY DISEASE: <60mL/MIN/1.73 SQ METERS KIDNEY FAILURE: <15mL/MIN/1.73 SQ METERS THIS TEST SHOULD ONLY BE USED FOR PATIENTS 18 YEARS OF AGE AND OLDER. Performed By: #### 2 08109 ####[facility],[address] [place] [address] Globulin (S) [Mass/Vol] 3.5 g/dL Normal 1.5 - 3.8 [facility] Comment on above: Performed By: #### 2 29801 ####[facility],[address] [place] [address]32[address] Glucose [Mass/Vol] 166 mg/dL High 74 - 106 [facility] Comment on above: Performed By: #### 2 93319 ####[facility],[address] [place] [address]26 Potassium [Moles/Vol] 5.0 mmol/L Normal 3.5 - 5.1 [facility] Comment on above: Performed By: #### 2 03328 ####[facility],[address] [place] [address]3783 Protein [Mass/Vol] 7.4 g/dL Normal 6.4 - 8.2 [facility] Comment on above: Performed By: #### 2 50732 ####[facility],[address] [place] [address] 12880 Sodium [Moles/Vol] 140 mmol/L Normal 136 - 145 [facility] Comment on above: Performed By: #### 2 62292 ####[facility],[address] [place] [address] 69013 Urea nitrogen [Mass/Vol] 29 mg/dL High 7 - 18 [facility] Comment on above: Performed By: #### 2 16360 ####[facility],[address] [place], [place] [address] CORONAVIRUS (SARS) ANTIGEN T Mj 02-10-2024 EXTERNAL QC DONE? YES Normal [facility] Comment on above: Performed By: #### 2 37552 #### [facility],[address] [place] [address] INTERNAL CONTROL PASS Normal [facility] Comment on above: Performed By: #### 2 76566 #### [facility],[address] [place] [address] 08705 SARS ANTIGEN Negative Normal NORMAL: NEGATIVE [facility] Comment on above: Performed By: #### 2 98481 #### [facility],[address] [place] [address]4570 SEND TO ? NO Normal [facility] Comment on above: Result Comment: SARS -CoV-2 THIS TEST IS BEING USED UNDER THE FDA EUA PROCEDURE. THIS ASSAY HAS BEEN VALIDATED AT [facility] FOR USE WITH NASAL AND NASOPHARYNGEAL SWAB [...] PUBLIC HEALTH AUTHORITIES. Performed By: #### 2 29050 #### [facility],[address] [place] [address] ED MED ADMINISTRATION DETAIL on 02-10-2024 ED MED ADMINISTRATION DETAIL Roll Cleaner Medication Administration Record [address] [address] [id number] 02/10/2024 Patient: BRYN AYON [facility]#: [id number] Sex: Male : 1945 Age: 78y MEASUREMENTS: Wt: 89.4 kg, Ht/Hector: 68.0 in, BMI: 29.95 ALLERGIES: No known drug allergies Medication Ordered Medication Administration Date/Time 1 of 1 Normal [facility] ED NURSES CLINICAL NOTEon ED NURSES CLINICAL NOTE Nurse Narrative Nurse Clinical Narrative [address] [address] [id number] 02/10/2024 [id number] Sex: Male : 1945 Age: 78y Disposition: Discharge to Home Disposition Decision Time: 16:34 02/10/2024 Departure Time: 16:52 02/10/2024 TRIAGE Triage time: 13:26 02/10/2024. Acuity: LEVEL 2. Chief Complaint: DIFFICULTY WALKING (dry mouth and broke out in a sweat). 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 SEPSIS SCREEN: NEGATIVE. SIRS criteria negative. No [...] once a day. -- 13:43 02/10/24 MAYO Aanya R.N. clopidogrel 75 mg tablet: 1 tablet once a day. -- 13:43 02/10/24 MAYO Anaya R.N. asprin 81 tablet: 1 tablet [...] happened the last time he had a SC. Pt denies SOB or CP. Pt does [...] left a (more content not included)... Normal [facility] ED ORDER SHEET (CPOE ONLY)on 02-10-2024 ED ORDER SHEET (CPOE ONLY) Order Sheet Order Sheet [place] [address] [place] [address] [id number] 02/10/2024 Patient: BRYN AYON Sex: Male : [...] 02/10/2024 Rhonda Sullivan Lemasters, D.O. R.N. R.NGuillaume Railroader 13:49 02/10/2024 13:51 02/10/2024 13:51 02/10/2024 Rhonda Sullivan Lemasters, D.O. R.N. R.NGuillaume 2 of 3 Order Sheet Vital signs every 15 13:49 02/10/2024 13:51 02/10/2024 13:51 02/10/2024 minutes Rhonda Sullivan Lemasters, D.O. R.N. R.N. IV Saline Lock 13:49 02/10/2024 13:51 02/10/2024 13:51 02/10/2024 Rhonda Sullivan Lemasters, D.O. R.N. R.NGuillaume [Electronically signed by Feliz Campa D.O. (02/10/2024 16:40 EST)] 3 of 3 [facility] ED PHYSICIAN CLINICAL REPORT on 02-10-2024 ED PHYSICIAN CLINICAL REPORT Narrative Physician Clinical Narrative [address] [address] [id number] 02/10/2024 Patient: BRYN AYON Sex: Male : [...] Narrative 02/10/2024 (more content not included)... [facility] ED SUPER BILLon 02-10-2024 ED SUPER [address] [address] [id number] 02/10/2024 Patient: BRYN AYON Sex: Male : 1945 Age: 78y Item Professional Category Description Facility Code Code Quantity Fee Total Nurse/E/M EMERGENCY 128551 1 $0.00 $0.00 DEPARTMENT VISIT MODERATE SEVERITY (04068-47) Grand Total $0.00 Providers Feliz Campa D.O. Chief Complaint Dry mouth and diaphoresis. Principal Diagnosis Weakness. 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 Pt denies SOB or CP. Pt does [...] CLINICAL IMPRESSION WEAKNESS 4 of 4 [facility] ED VITALS FLOW SHEETon 02-09 ED VITALS FLOW SHEET Vitals Vital Sign Flow Sheet [address] [address] [id number] 02/10/2024 Patient: BRYN AYON Sex: Male : [...] 97.7 F 7 2 of 2 [facility] INFLUENZA VIRUS RAPID A/Bon 02-10-2024 INFLUENZA [...] TO THREE DAYS. RESULT CRITICAL? NO [facility] Comment on above: Performed By: #### 2 18347 ####[facility],[address] [place] [address] TROPONINon 12-24-2024 HS TROPONIN 32.6 pg/mL Normal 0.0 - 76.2 [facility] Comment on above: Performed By: #### 2 49906 #### [facility],[address] [place] [address] HS TROPONIN 41.3 pg/mL Normal 0.0 - 76.2 [facility] Comment on above: Performed By: #### 2 69767 #### [facility],[address] [place] [address] CV VENOUS LEG RTon CV VENOUS LEG RT [place] [address] Patient: BRYN AYON Phone#: : 1945 Age: 78 Gender: M Pt. Type: Out Account: [id number] Location: 010 Ordering: RITU OLIVA Exam Date: 01/09/2024/8:56 Family Phys: Charge Code: 087577 Physician: [place] Order #: [id number] Dose#: PROCEDURE: VENOUS DOPPLER RT LEG COMPARISON: None. INDICATIONS: R/O DVT TECHNIQUE: Color duplex Doppler ultrasound evaluation analysis was performed in the usual manner. HEAD GRINDER: HEATHER BACK RVT [facility] RISK FACTORS FOR VENOUS DISEASE: Other [...] PERONEAL V + GSV GASTROC SOLEAL V HEAD GRINDER'S NOTES: FINDINGS: THROMBI: None visible. Continued Report - Page 2 of 2 Patient: BRYN AYON Phone#: : 1945 Age: 78 Gender: M Pt. Type: Out Account: [id number] Location: 010 Ordering: RITU OLIVA Exam Date: 01/09/2024/8:56 Family Phys: Charge Code: [id number] Physician: [place] Order #: [id number] Dose#: COMPRESSIBILITY: Normal. OTHER: Negative. CONCLUSION: 1. No evidence of deep vein thrombus in the right lower extremity. Dictated by: Teresa Garcia MD on 01/09/2024 at 8:54 Approved by: Teresa Garcia MD on 01/09/2024 at 8:56 [facility] ED MED ADMINISTRATION DETAIL on 01-09-2024 ED MED ADMINISTRATION DETAIL Roll Cleaner Medication Administration Record [place] [address] [place] [address] [id number] 01/08/2024 Patient: BRYN AYON Sex: Male : [...] - 20:01 Noe FarleyNGuillaume 1 of 2 Roll Cleaner Medication Ordered Medication Administration Date/Time doxycycline IVPB [...] Lolis Yi R.N. 2 of 2 [facility] ED NURSES CLINICAL NOTEon ED NURSES CLINICAL NOTE Nurse Narrative Nurse Clinical [address] [place] [address] [id number] 01/08/2024 Patient: BRYN AYON Sex: Male : [...] tablet twice a day. -- 17:31 01/08/24 MAOY Cartagena R.N. losartan 25 mg tablet: 1 [...] / PSYCH: (more content not included)... [facility] ED ORDER SHEET (CPOE ONLY)on 01-09-2024 ED ORDER SHEET (CPOE ONLY) Order Sheet Order Sheet [place] [address] [place] [address] [id number] 01/08/2024 Patient: BRYN AYON Sex: Male : [...] Lolis Diaz Katelyn Horst, M.D. R.N. R.N. Troponin-I [...] PHYSICIAN CLINICAL REPORT Narrative Physician Clinical Narrative [facility] [address] [place] [address] [id number] 01/08/2024 Patient: BRYN AYON Sex: Male : [...] - 17. (more content not included)... [facility] ED [facility] 01-09-2024 ED [place] [address] [place] [address] [id number] 01/08/2024 Patient: BRYN AYON Sex: Male : 1945 Age: 78y Facility Professional Category Item Description Code Code Quantity Fee Total Nurse/E/M EMERGENCY 053551 1 $0.00 $0.00 DEPT VISIT HIGH SEVERITYFUNCJ (38417-08) Nurse/IV/IM/Infusions Drip/IVPB initial 664494 1 $0.00 $0.00 (94958) Nurse/IV/IM/Infusions Drip/IVPB seq 841036 1 $0.00 $0.00 (49741) Nurse/IV/IM/Infusions IVP additional 791372 1 $0.00 $0.00 push (97999) Nurse/Procedures Respiratory 142442 1 $0.00 $0.00 therapy - inhalation (41401) Grand $0.00 Total Providers Krys Barr M.D. Eliezer Constantino D.O. 1 of 2 [facility] Chief Complaint DYSPNEA. Principal Diagnoses Acute dyspnea. Moderate congestive heart failure. Pneumonia. Cough hypoxia. Probable hypoxia. Probable acute cough. ICD-10 Codes R06.09: Other forms of dyspnea J18.9: Pneumonia, unspecified organism I50.9: Heart failure, unspecified 2 of 2 [facility] ED VISIT SUMMARYon ED VISIT SUMMARY Visit Overview Visit Overview [facility] [address] [place] [address] [id number] 01/08/2024 Patient: BRYN AYON Sex: Male : [...] COUGH PROBABLE HYPOXIA 4 of 4 [facility] ED VITALS FLOW SHEETon 01-08 ED VITALS FLOW SHEET Vitals Vital Sign Flow Sheet [facility] [address] [facility] [place] [address] [id number] 01/08/2024 Patient: BRYN AYON Sex: Male : [...] 98.0 F 0 5 of 5 [facility] BMP with eGFRon 01-08-2024 AGE 78 years [facility] Comment on above: Performed By: #### 2 90085 #### [facility],[address] [place], [place] [phone] Anion gap [Moles/Vol] 13 mmol/L Normal 10 - 20 [facility] Comment on above: Performed By: #### 2 30519 #### [facility],[address] [place], [place] [phone] BMP with eGFR Normal [facility] Comment on above: Result Comment: BASI C METABOLIC PANEL Performed By: #### 2 98214 #### [facility],[address] [place] [address] 42414 Calcium [Mass/Vol] 8.3 mg/dL Low 8.5 - 10.1 [facility] Comment on above: Performed By: #### 2 71444 #### [facility],[address] [place] [address] 46479 Chloride [Moles/Vol] 103 mmol/L Normal 98 - 107 [facility] Comment on above: Performed By: #### 2 86735 #### [facility],[address] [place] [address] 85303 CO2 [Moles/Vol] 28.5 mmol/L Normal 21.0 - 32.0 [facility] Comment on above: Performed By: #### 2 13247 #### [facility],[address] [place] [address] 13851 Creatinine [Mass/Vol] 2.05 mg/dL High 0.70 - 1.30 [facility] Comment on above: Performed By: #### 2 34421 #### [facility],[address] [place] [address] 37718 eGFR 31 ML/MINUTE Low 60 - 999 [facility] Comment on above: Performed By: #### 2 88497 #### [facility],[address] [place] [address] 69859 eGFR(AA) 38 ML/MINUTE Low 60 - 999 [facility] Comment on above: Result Comment: ACCO RDING TO THE NATIONAL KIDNEY DISEASE EDUCATION PROGRAM(NKDE), A NORMAL eGFR IS A VALUE GREATER THAN OR EQUAL TO 60 ML/MIN/1.73 SQ METERS. CHRONIC KIDNEY DISEASE: <60mL/MIN/1.73 SQ METERS KIDNEY FAILURE: <15mL/MIN/1.73 SQ METERS THIS TEST SHOULD ONLY BE USED FOR PATIENTS 18 YEARS OF AGE AND OLDER. Performed By: #### 2 07929 #### [facility],[address] [place] [address] Glucose [Mass/Vol] 168 mg/dL High 74 - 106 [facility] Comment on above: Performed By: #### 2 03166 #### [facility],[address] [place] [address]357 Potassium [Moles/Vol] 4.4 mmol/L Normal 3.5 - 5.1 [facility] Comment on above: Performed By: #### 2 63348 #### [facility],[address] [place] [address] 23457 Sodium [Moles/Vol] 140 mmol/L Normal 136 - 145 [facility] Comment on above: Performed By: #### 2 90774 #### [facility],[address] [place] [address] 73498 Urea nitrogen [Mass/Vol] 48 mg/dL High 7 - 18 [facility] Comment on above: Performed By: #### 2 60412 #### [facility],[address] [place] [address]1002 CBC + DIFFon 11-21-2024 Baso # 0.03 x10EE3/UL Normal 0.00 - 0.10 [facility] Comment on above: Performed By: #### 2 97921 ####[facility],[address] [place] [address] Basophils/100 WBC (Bld) 0.3 % Normal 0.0 - 2.0 [facility] Comment on above: Performed By: #### 2 51172 ####[facility],[address] [place] [address] CBC + DIFF [facility] Comment on above: Result Comment: CBC- COMPLETE BLOOD COUNT Performed By: #### 2 60382 ####[facility],[address] [place] [address] EO # 0.14 x10EE3/UL Normal 0.00 - 0.50 [facility] Comment on above: Performed By: #### 2 35683 ####[facility],[address] [place] [address] Eosinophils/100 WBC (Bld) 1.4 % Normal 0.0 - 7.0 [facility] Comment on above: Performed By: #### 2 15310 ####[facility],[address] [place] [address] Erythrocyte distribution width (RBC) [Ratio] 13.7 % Normal 12.0 - 15.6 [facility] Comment on above: Performed By: #### 2 93295 ####[facility],[address] [place] [address] Hematocrit (Bld) [Volume fraction] 40.6 % Normal 40.0 - 52.0 [facility] Comment on above: Performed By: #### 2 99564 ####[facility],[address] [place] [address] Hemoglobin (Bld) [Mass/Vol] 13.4 g/dL Normal 13.0 - 17.5 [facility] Comment on above: Performed By: #### 2 57602 ####[facility],[address] [place] [address]2479 Lymph # 0.80 x10EE3/UL Normal 0.80 - 2.80 [facility] Comment on above: Performed By: #### 2 29179 ####[facility],[address] [place] [address] Lymphocytes/100 WBC (Bld) 8.0 % Low 20.0 - 45.0 [facility] Comment on above: Performed By: #### 2 69982 ####[facility],[address] [place] [address] MANUAL DIFF N/A [facility] Comment on above: Performed By: #### 2 19486 ####[facility],[address] [place] [address] MCH (RBC) [Entitic mass] 31 pg Normal 27 - 33 [facility] Comment on above: Performed By: #### 2 41433 ####[facility],[address] [place] [address] MCHC 33 X10 3 Normal 32 - 36 [facility] Comment on above: Performed By: #### 2 26801 ####[facility],[address] [place] [address] 16172 MCV (RBC) [Entitic vol] 93 fL Normal 81 - 98 [facility] Comment on above: Performed By: #### 2 11815 ####[facility],[address] [place] [address] 50563 Corson # 0.96 x10EE3/UL Normal 0.20 - 1.00 [facility] Comment on above: Performed By: #### 2 98362 ####[facility],[address] [place] [address] 88746 MONOS % 9.6 % Normal 0.0 - 10.0 [facility] Comment on above: Performed By: #### 2 50402 ####[facility],[address] [place] [address]7412 Morphology Alvaro (Bld) [Interp] N/A [facility] Comment on above: Performed By: #### 2 73591 ####[facility],[address] [place] [address] 60434 Neut # 8.11 x10EE3/UL High 1.50 - 7.10 [facility] Comment on above: Performed By: #### 2 75423 ####[facility],[address] [place] [address] 23140 Neutrophils/100 WBC (Bld) 80.8 % High 46.0 - 76.0 [facility] Comment on above: Performed By: #### 2 09748 ####[facility],[address] [place] [address] 05988 PLATELET 203 x10EE3/UL Normal 150 - 450 [facility] Comment on above: Performed By: #### 2 63628 ####[facility],[address] [place] [address] 11296 Platelet mean volume (Bld) [Entitic vol] 6.7 fL Normal 6.4 - 10.5 [facility] Comment on above: Result Comment: AUTO MATED DIFFERENTIAL Performed By: #### 2 74571 ####[facility],[address] [place] [address] 78778 RBC 4.36 x 10EE6/UL Low 4.50 - 6.00 [facility] Comment on above: Performed By: #### 2 27026 ####[facility],[address] [place] [address] 82712 WBC 10.0 x 10EE3/UL Normal 4.5 - 10.8 [facility] Comment on above: Performed By: #### 2 18219 ####[facility],[address] [place] [address] 06609 CHEST 1 VIEWon 01-08-2024 CHEST 1 VIEW [place] [address] Patient: BRYN AYON Phone#: : 1945 Age: 78 Gender: M Pt. Type: ER Account: [id number] Location: [facility] Ordering: DR. KRYS BARR Exam Date: 01/08/2024/17:23 Family Phys: Charge Code: 433315 Physician: [place] Order #: [id number] Dose#: PROCEDURE: X-RAY CHEST 1 VIEW COMPARISON: [facility], XR, CHEST 1 VIEW, 01/02/2022, 13:26. [facility], XR, CHEST 2 VIEWS, 01/08/2022, 9:57. [...] Garcia MD on 01/08/2024 at 18:02 [facility] CORONAVIRUS (SARS) ANTIGEN T ESTon 01-08-2024 EXTERNAL QC DONE? YES Normal [facility] Comment on above: Performed By: #### 2 17035 #### [facility],[address] [place] [address] INTERNAL CONTROL PASS Normal [facility] Comment on above: Performed By: #### 2 43427 #### [facility],[address] [place] [address] SARS ANTIGEN Negative Normal NORMAL: NEGATIVE [facility] Comment on above: Performed By: #### 2 67401 #### [facility],[address] [place] [address] 19153 SEND TO ? NO [facility] Comment on above: Result Comment: SARS -CoV-2 THIS TEST IS BEING USED UNDER THE FDA EUA PROCEDURE. THIS ASSAY HAS BEEN VALIDATED AT [facility] FOR USE WITH NASAL AND NASOPHARYNGEAL SWAB [...] PUBLIC HEALTH AUTHORITIES. Performed By: #### 2 83750 #### [address] [address] [address] CHEST (PE PROTOCOL)on CT CHEST (PE PROTOCOL) [place] [address] Patient: BRYN AYON Phone#: : 1945 Age: 78 Gender: M Pt. Type: ER Account: [id number] Location: 010 Ordering: ELIEZER CONSTANTINO Exam Date: 01/08/202421:25 Family Phys: Charge Code: 905839 Physician: [place] Order #: [id number] Dose#: 8 PROCEDURE: CT CHEST WITH CONTRAST FOR PE COMPARISON: [facility], CT, CHEST PE W CON, 10/23/2018, [...] recommend dedicated thyroid ultrasound for further characterization. [place] [address] Patient: BRYN AYON Phone#: : 1945 Age: 78 Gender: M Pt. Type: ER Account: [id number] Location: 010 Ordering: ELIEZER CONSTANTINO Exam Date: 01/08/2024/21:25 Family Phys: Charge Code: [id number] Physician: [place] Order #: [id number] Dose#: 8 Dictated by: Teresa Garcia MD on 01/09/2024 at 11:11 Approved by: Teresa Garcia MD on 01/09/2024 at 11:19 [facility] D-DIMER, QUANTITATIVEon 12-19 D-DIMER QUANT 1039 ng/ml High 0 - 230 [facility] Comment on above: Performed By: #### 2 90132 #### [facility],[address] [place], [place] [address] D-DIMER, QUANTITATIVE Normal [facility] Comment on above: Result Comment: TREVOR T D-DIMER Performed By: #### 2 93751 #### [facility],[address] [place] [address] INFLUENZA VIRUS RAPID A/Bon 01-08-2024 INFLUENZA VIRUS [...] TO THREE DAYS. RESULT CRITICAL? NO [facility] Comment on above: Performed By: #### 2 21034 ####[facility],[address] [place], [place] [address] LACTATEon 01-08-2024 Lactate [Moles/Vol] 0.8 mmol/L Normal 0.4 - 2.0 [facility] Comment on above: Performed By: #### 2 90123 #### [facility],[address] [place], [place] [address] NT-proBNPon 01-08-2024 Natriuretic peptide B (Bld) [Mass/Vol] 3150 pg/mL High 0 - 450 [facility] Comment on above: Performed By: #### 2 30803 #### [facility],[address] [place] [address] 25157 TROPONINon 01-08-2024 HS TROPONIN 33.3 pg/mL Normal 0.0 - 76.2 [facility] Comment on above: Performed By: #### 2 29302 #### [facility],[address] [place] [address] 34383 FACILITY CODING SUMMARYon FACILITY CODING SUMMARY Facility Coding Facility Coding Summary [address] [address] [id number] 11/27/2023 Patient: BRYN AYON Sex: Male : [...] from Providers: Splint - Short Arm (CPT: 67455-ZW) -- Bryn Rosen D.O. Procedures from Nurses/Facility: Splint - Short Arm (CPT: 36719-UN) 1 of 2 Facility Coding SUPPLIES [facility] 74099-64 This is a partial abstract of information documented in the full record. Refrigeration Service Inspector must use independent judgment in selecting codes. CPT copyright 2022 [employer]. All Rights Reserved. 2 of 2 [facility] MED ADMINISTRATION DETAILon 11-27-2023 MED ADMINISTRATION DETAIL Roll Cleaner Medication Administration Record [address] [address] [id number] 11/27/2023 Patient: BRYN AYON [facility]#: [id number] Sex: Male : 1945 Age: 78y MEASUREMENTS: Wt: 89.8 kg, Ht/Hector: 69.0 in, BMI: 29.24 ALLERGIES: No known drug allergies Medication Ordered Medication Administration Date/Time 1 of 1 [facility] NURSES CLINICAL REPORT (NOTE S)on 11-27-2023 NURSES CLINICAL REPORT (NOTES) Nurse Narrative Nurse Clinical Narrative [address] [address] [id number] 11/27/2023 [id number] Sex: Male : 1945 Age: 78y Disposition: [...] Willy [place] R.N. 11:18 11/27/23. Preferred pharmacy: [facility]. -- 11:31 11/27/23 YOUSUF Rodriguez R.N. [...] patient. 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 Provided by patient. -- 11:31 [...] 4 Nu (more content not included)... [facility] ORDER SHEET (CPOE ONLY)on ORDER SHEET (CPOE ONLY) Order Sheet Order Sheet [address] [address] [id number] 11/27/2023 Patient: BRYN AYON Sex: Male : 1945 Age: 78y MEASUREMENTS: Wt: 89.8 kg, Ht/Hector: 69.0 in, BMI: 29.24 ALLERGIES: No known drug allergies MEDICATION/IV/DRIP/FL UID ORDERS Order Description Priority Entered Acknowledged Completed Triple Antibiotic Oint 11:56 11/27/2023 12:04 (Kcaw-Ecrp-Xjpp B)1 applic Bryn Rosen 11/27/2023 (NOW x1) Laura Epstein R.N. LAB ORDERS Order Description Priority Entered Acknowledged Collected Completed DIAGNOSTIC STUDY ORDERS Order Description Priority Entered Acknowledged Completed STAFF ORDERS Order Description Priority Entered Acknowledged Collected Completed [Electronically signed by Bryn Rosen D.O. (11/27/2023 20:28 EDT)] 1 of 1 [facility] PHYS CLINICAL REPORT AND ADD ENon 11-27-2023 PHYS CLINICAL REPORT AND ADDEN Narrative Physician Clinical Narrative [address] [address] [id number] 11/27/2023 Patient: BRYN AYON Sex: Male : [...] your hand. Follow-up with: Jade Latham MD, [facility], Internal Medicine, , [address], [place] [address]. Follow up in five days. Call for an appointment. (keep clean and dry. watch for signs of infection (red hot pain)). (Electronically signed by Bryn Rosen D.O. 11/27/23 20:28:43 EDT) 3 of 4 Narrative Generated by [facility] 4 of 4 [facility] PHYS CODING SUMMARY [employer] [facility] 11-27-2023 PHYS CODING SUMMARY [employer] Coding Summary Coding Summary [address] [place] [address] [id number] 11/27/2023 Patient: BRYN AYON Sex: Male : 1945 Age: 78y ICD-10 Codes S60.811A: Abrasion of right wrist, initial encounter S60.511A: Abrasion of right hand, initial encounter S61.501A: Unspecified open wound of right wrist, initial encounter CPT Codes Splint - Short Arm (CPT: 79902-UB) This is a partial abstract of information documented in the full record. Refrigeration Service Inspector must use independent judgment in selecting codes. CPT copyright 2022 [employer]. All Rights Reserved. 1 of 1 [facility] [address] [place] [address] [id number] 11/27/2023 Patient: BRYN AYON Sex: Male : 1945 Age: 78y Item Facility Professional Category Description Code Code Quantity Fee Total Nurse/E/M EMERGENCY 295960 1 $0.00 $0.00 DEPARTMENT VISIT MODERATE SEVERITY (05382-82) Physician/Procedures Splint - Short 530492 172693 1 $0.00 $0.00 Arm (04602-DC) Grand Total $0.00 Providers Bryn Rosen D.O. [...] wrist, initial encounter 2 of 2 [facility] VISIT SUMMARYon 11-27-2023 VISIT SUMMARY Visit Overview Visit Overview [address] [place] [address] [id number] 11/27/2023 Patient: BRYN AYON Sex: Male : [...] FOREIGN BODY PRESENT 3 of 3 [facility] PTH, INTACT [CCL]on 07-18-19 24 PTH, Intact 42 pg/mL Normal 15-65 [facility] Comment on above: Result Comment: [place] [address] Roberto Sue III, M.D. [id number] Performed By: #### 2 16336 #### [facility],[address] [place] [address] BMP with eGFRon 07-17-2023 AGE 77 years [facility] Comment on above: Performed By: #### 2 70352 #### [facility],[address] [place] [address] 96322 Anion gap [Moles/Vol] 9 mmol/L Low 10 - 20 [facility] Comment on above: Performed By: #### 2 37545 #### [facility],[address] [place] [address] 35777 BMP with eGFR Normal [facility] Comment on above: Result Comment: BASI C METABOLIC PANEL Performed By: #### 2 04903 #### [facility],[address] [place] [address] 14491 Calcium [Mass/Vol] 9.1 mg/dL Normal 8.5 - 10.1 [facility] Comment on above: Performed By: #### 2 91733 #### [facility],[address] [place], [place] [address] Chloride [Moles/Vol] 105 mmol/L Normal 98 - 107 [facility] Comment on above: Performed By: #### 2 65213 #### [facility],[address] [place] [address] 96264 CO2 [Moles/Vol] 32.2 mmol/L High 21.0 - 32.0 [facility] Comment on above: Performed By: #### 2 41686 #### [facility],[address] [place] [address] 50637 Creatinine [Mass/Vol] 2.02 mg/dL High 0.70 - 1.30 [facility] Comment on above: Performed By: #### 2 46814 #### [facility],[address] [place] [address] 85450 eGFR 32 ML/MINUTE Low 60 - 999 [facility] Comment on above: Performed By: #### 2 56461 #### [facility],[address] [place] [address] 66035 eGFR(AA) 39 ML/MINUTE Low 60 - 999 [facility] Comment on above: Result Comment: ACCO RDING TO THE NATIONAL KIDNEY DISEASE EDUCATION PROGRAM(NKDE), A NORMAL eGFR IS A VALUE GREATER THAN OR EQUAL TO 60 ML/MIN/1.73 SQ METERS. CHRONIC KIDNEY DISEASE: <60mL/MIN/1.73 SQ METERS KIDNEY FAILURE: <15mL/MIN/1.73 SQ METERS THIS TEST SHOULD ONLY BE USED FOR PATIENTS 18 YEARS OF AGE AND OLDER. Performed By: #### 2 09838 #### [facility],[address] [place] [address] 89598 Glucose [Mass/Vol] 96 mg/dL Normal 74 - 106 [facility] Comment on above: Performed By: #### 2 21065 #### [facility],[address] [place] [address] 91061 Potassium [Moles/Vol] 4.1 mmol/L Normal 3.5 - 5.1 [facility] Comment on above: Performed By: #### 2 13575 #### [facility] [facility],[address] [place] [address]951 Sodium [Moles/Vol] 142 mmol/L Normal 136 - 145 [facility] Comment on above: Performed By: #### 2 07782 #### [facility],[address] [place] [address] 47559 Urea nitrogen [Mass/Vol] 39 mg/dL High 7 - 18 [facility] Comment on above: Performed By: #### 2 45702 #### [facility],[address] [place] [address] 11833 CBC + DIFFon 07-17-2023 Baso # 0.03 x10EE3/UL Normal 0.00 - 0.10 [facility] Comment on above: Performed By: #### 2 67762 #### [facility],[address] [place] [address] 79118 Basophils/100 WBC (Bld) 0.4 % Normal 0.0 - 2.0 [facility] Comment on above: Performed By: #### 2 62649 #### [facility],[address] [place] [address] CBC + DIFF Normal [facility] Comment on above: Result Comment: CBC- COMPLETE BLOOD COUNT Performed By: #### 2 71622 #### [facility],[address] [place] [address] EO # 0.13 x10EE3/UL Normal 0.00 - 0.50 [facility] Comment on above: Performed By: #### 2 70935 #### [place] [address] Eosinophils/100 WBC (Bld) 1.7 % Normal 0.0 - 7.0 [facility] Comment on above: Performed By: #### 2 66279 #### [place] [address] Erythrocyte distribution width (RBC) [Ratio] 14.4 % Normal 12.0 - 15.6 [facility] Comment on above: Performed By: #### 2 04360 #### [place] [address] Hematocrit (Bld) [Volume fraction] 43.9 % Normal 40.0 - 52.0 [facility] Comment on above: Performed By: #### 2 82804 #### [place] [address] Hemoglobin (Bld) [Mass/Vol] 14.5 g/dL Normal 13.0 - 17.5 [facility] Comment on above: Performed By: #### 2 73611 #### [place] [address] Lymph # 1.85 x10EE3/UL Normal 0.80 - 2.80 [facility] Comment on above: Performed By: #### 2 02768 #### [facility] [address] Lymphocytes/100 WBC (Bld) 23.9 % Normal 20.0 - 45.0 [facility] Comment on above: Performed By: #### 2 23676 #### [facility],[address] [place] [address] MANUAL DIFF N/A Normal [facility] Comment on above: Performed By: #### 2 23862 #### [place] [address] MCH (RBC) [Entitic mass] 30 pg Normal 27 - 33 [facility] Comment on above: Performed By: #### 2 51915 #### [place] [address] MCHC 33 X10 3 Normal 32 - 36 [facility] Comment on above: Performed By: #### 2 53186 #### [place] [address] MCV (RBC) [Entitic vol] 91 fL Normal 81 - 98 [facility] Comment on above: Performed By: #### 2 49924 #### [place] [address] Corson # 0.78 x10EE3/UL Normal 0.20 - 1.00 [facility] Comment on above: Performed By: #### 2 90885 #### [place] [address] MONOS % 10.0 % Normal 0.0 - 10.0 [facility] Comment on above: Performed By: #### 2 32434 #### [place] [address] Morphology Alvaro (Bld) [Interp] N/A Normal [facility] Comment on above: Performed By: #### 2 50700 #### [place] [address] Neut # 4.94 x10EE3/UL Normal 1.50 - 7.10 [facility] Comment on above: Performed By: #### 2 61660 #### [facility],[address] [place] [address] 88088 Neutrophils/100 WBC (Bld) 64.0 % Normal 46.0 - 76.0 [facility] Comment on above: Performed By: #### 2 74254 #### [facility],[address] [place] [address] 48708 PLATELET 179 x10EE3/UL Normal 150 - 450 [facility] Comment on above: Performed By: #### 2 59113 #### [facility],[address] [place] [address] 38291 Platelet mean volume (Bld) [Entitic vol] 7.0 fL Normal 6.4 - 10.5 [facility] Comment on above: Result Comment: AUTO MATED DIFFERENTIAL Performed By: #### 2 63311 #### [facility],[address] [place] [address] 36064 RBC 4.83 x 10EE6/UL Normal 4.50 - 6.00 [facility] Comment on above: Performed By: #### 2 77936 #### [facility],[address] [place] [address] 16322 WBC 7.7 x 10EE3/UL Normal 4.5 - 10.8 [facility] Comment on above: Performed By: #### 2 78606 #### [facility],[address] [place] [address] 31103 URIC ACIDon 07-17-2023 Urate [Mass/Vol] 6.9 mg/dL Normal 3.5 - 7.2 [facility] Comment on above: Performed By: #### 2 97148 #### [facility],[address] [place] [address] 22932 URINE CREATININE AND PROTEIN RATIOon 07-17-2023 CREATININE UR 92.31 mg/dl Normal [facility] Comment on above: Performed By: #### 2 89580 #### [facility],[address] [place] [address] 92496 PC RATIO 0.47 mg/dL Normal 0.00 - 10.00 [facility] Comment on above: Performed By: #### 2 45950 #### [facility],[address] [place] [address] 94797 Protein (U) [Mass/Vol] 43.30 mg/dL High 0.00 - 10.00 [facility] Comment on above: Performed By: #### 2 99610 #### [facility],[address] [place] [address] 91810 VITAMIN D, 25 HYDROXYon 06-19 VitD 66.60 ng/mL Normal 30.00 - 100 [facility] Comment on above: Result Comment: 25-O HD3 [...] D2 Not Established Performed By: #### 2 15367 #### [facility],[address] [place] [address] .Auto Diffon 08-07-2022 Basophil, Absolute 0.1 10 3/mcL Normal 0.0-0.3 [facility] ([place]) Comment on above: Performed By: #### H H #### [facility] [address] [place] [address]80 Basophils/100 WBC (Bld) 0.8 % Normal 0.0-2.5 [facility] ([place]) Comment on above: Performed By: #### H H #### [facility] [address] [place] [address] 84046 Eosinophil, Absolute 0.1 10 3/mcL Normal 0.0-0.7 [facility] ([place]) Comment on above: Performed By: #### H H #### [address] [address] Eosinophils/100 WBC (Bld) 1.7 % Normal 0.0-6.0 [facility] ([place]) Comment on above: Performed By: #### H H #### [address] [address] Lymphocyte, Absolute 1.4 10 3/mcL Normal 0.9-4.3 [facility] ([place]) Comment on above: Performed By: #### H H #### [address] [address] Lymphocytes/100 WBC (Bld) 19.5 % Low 20.0-40.0 [facility] ([place]) Comment on above: Performed By: #### H H #### [address] [address] Monocyte, Absolute 0.8 10 3/mcL Normal 0.1-1.4 [facility] ([place]) Comment on above: Performed By: #### H H #### [address] [address] Monocytes/100 WBC (Bld) 10.3 % Normal 2.0-13.0 [facility] ([place]) Comment on above: Performed By: #### H H #### [address] [address] Neutrophils/100 WBC (Bld) 67.7 % Normal 50.0-75.0 [facility] ([place]) Comment on above: Performed By: #### H H #### [address] [address] .GFRon 08-07-2022 GFR 41 ml/min/1.73sqm Normal [facility] ([place]) Comment on above: Result Comment: GFR Population [...] GFR, ADIFF,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 6.4-10.5 [facility] ([place]) Comment on above: Performed By: #### L IPID, GFR, ADIFF, CBC, BMP, ANEU, A1C #### [place] [address] RBC 3.89 10 6/mcL Low 4.50-6.00 [facility] ([place]) Comment on above: Performed By: #### L IPID, GFR, ADIFF, CBC, BMP, ANEU, A1C #### [place] [address] WBC 9.9 10 3/mcL Normal 4.5-10.8 [facility] ([place]) Comment on above: Performed By: #### L IPID, GFR, ADIFF, CBC, BMP, ANEU, A1C #### [place] [address] CKon 03-03-2022 CK [Catalytic activity/Vol] 157 U/L Normal 7-185 [facility] ([place]) Comment on above: Performed By: #### L IPID, GFR, ADIFF, CBC, BMP, ANEU, A1C #### [place] [address] CMPon 03-03-2022 Albumin Level 3.5 G/dL Normal 3.2-4.8 [facility] ([place]) Comment on above: Performed By: #### L IPID, GFR, ADIFF, CBC, BMP, ANEU, A1C #### [place] [address] Albumin/Globulin [Mass ratio] 1.5 {ratio} Normal 0.9-1.6 [facility] ([place]) Comment on above: Performed By: #### L IPID, GFR, ADIFF, CBC, BMP, ANEU, A1C #### [address] [address] ALP [Catalytic activity/Vol] 89 U/L Normal 38-126 [facility] ([place]) Comment on above: Performed By: #### L IPID, GFR, ADIFF, CBC, BMP, ANEU, A1C #### [address] [address] ALT [Catalytic activity/Vol] 15 U/L Normal 12-55 [facility] ([place]) Comment on above: Performed By: #### L IPID, GFR, ADIFF, CBC, BMP, ANEU, A1C #### [address] [address] AST [Catalytic activity/Vol] 18 U/L Normal 8-34 [facility] ([place]) Comment on above: Performed By: #### L IPID, GFR, ADIFF, CBC, BMP, ANEU, A1C #### [place] [id number] Bili Total 0.80 mg/dL Normal 0.20-1.20 [facility] ([place]) Comment on above: Result Comment: Use of this assay is not recommended for patients undergoing treatment with eltrombopag due to the potential for falsely elevated results. Performed By: #### L IPID, GFR, ADIFF, CBC, BMP, ANEU, A1C #### [place] [id number] BUN/Creatinine Ratio 19.0 ratio Normal 10.0-22.0 [facility] ([place]) Comment on above: Performed By: #### L IPID, GFR, ADIFF, CBC, BMP, ANEU, A1C #### [address] [address] Calcium [Mass/Vol] 8.6 mg/dL Low 8.7-10.4 [facility] ([place]) Comment on above: Performed By: #### L IPID, GFR, ADIFF, CBC, BMP, ANEU, A1C #### [place] [id number] Chloride [Moles/Vol] 108 mmol/L Normal 98-110 [facility] ([place]) Comment on above: Performed By: #### L IPID, GFR, ADIFF, CBC, BMP, ANEU, A1C #### [address] [address] CO2 [Moles/Vol] 31 mmol/L Normal 22-32 [facility] ([place]) Comment on above: Performed By: #### L IPID, GFR, ADIFF, CBC, BMP, ANEU, A1C #### [address] [address] Creatinine [Mass/Vol] 1.53 mg/dL High 0.60-1.40 [facility] ([place]) Comment on above: Performed By: #### L IPID, GFR, ADIFF, CBC, BMP, ANEU, A1C #### [address] [address] Electrolyte Balance 4.0 mEq/L Normal 4.0-15.0 [facility] ([place]) Comment on above: Performed By: #### L IPID, GFR, ADIFF, CBC, BMP, ANEU, A1C #### [place] [id number] Globulin 2.4 G/dL Normal 1.5-3.8 [facility] ([place]) Comment on above: Performed By: #### L IPID, GFR, ADIFF, CBC, BMP, ANEU, A1C #### [address] [address] Glucose [Mass/Vol] 182 mg/dL High 82-115 [facility] ([place]) Comment on above: Performed By: #### L IPID, GFR, ADIFF, CBC, BMP, ANEU, A1C #### [address] [address] Potassium [Moles/Vol] 4.8 mmol/L Normal 3.5-5.0 [facility] ([place]) Comment on above: Performed By: #### L IPID, GFR, ADIFF, CBC, BMP, ANEU, A1C #### [address] [address] Sodium [Moles/Vol] 143 mmol/L Normal 136-145 [facility] ([place]) Comment on above: Performed By: #### L IPID, GFR, ADIFF, CBC, BMP, ANEU, A1C #### [place] [id number] Total Protein 5.9 G/dL Normal 5.7-8.2 [facility] ([place]) Comment on above: Result Comment: No te - New Reference Range in effect 19 Performed By: #### L IPID, GFR, ADIFF, CBC, BMP, ANEU, A1C #### [place] [address] Urea nitrogen [Mass/Vol] 29.0 mg/dL High 8.0-22.0 [facility] ([place]) Comment on above: Performed By: #### L IPID, GFR, ADIFF, CBC, BMP, ANEU, A1C #### [place] [address] FIBon 03-03-2022 Fibrinogen 659 mg/dL High 250-560 [facility] ([place]) Comment on above: Performed By: #### L IPID, GFR, ADIFF, CBC, BMP, ANEU, A1C #### [place] [address] HHon 03-03-2022 Hematocrit (Bld) [Volume fraction] 36.8 % Low 40.0-52.0 [facility] ([place]) Comment on above: Performed By: #### H H #### [place] [address] Hgb 12.3 G/dL Low 13.0-17.5 [facility] ([place]) Comment on above: Performed By: #### H H #### [place] [address] Hematocrit (Bld) [Volume fraction] 36.9 % Low 40.0-52.0 [facility] ([place]) Comment on above: Performed By: #### L IPID, GFR, ADIFF, CBC, BMP, ANEU, A1C #### [place] [address] Hgb 12.1 G/dL Low 13.0-17.5 [facility] ([place]) Comment on above: Performed By: #### L IPID, GFR, ADIFF, CBC, BMP, ANEU, A1C #### [address] [address] LIPIDon 03-03-2022 Cholesterol [Mass/Vol] 100 mg/dL Normal 50-199 [facility] ([place]) Comment on above: Result Comment: Chol esterol Reference Interval: Less than 200 Desirable 200-239 Borderline high risk 240 and above High risk Performed By: #### L IPID, GFR, ADIFF, CBC, BMP, ANEU, A1C #### [place] [address] Cholesterol in HDL [Mass/Vol] 30 mg/dL Low 40-59 [facility] ([place]) Comment on above: Performed By: #### L IPID, GFR, ADIFF, CBC, BMP, ANEU, A1C #### [place] [address] Cholesterol in LDL [Mass/Vol] 51 mg/dL Normal 0-129 [facility] ([place]) Comment on above: Performed By: #### L IPID, GFR, ADIFF, CBC, BMP, ANEU, A1C #### [place] [address] Triglyceride [Mass/Vol] 93 mg/dL Normal 3-149 [facility] ([place]) Comment on above: Performed By: #### L IPID, GFR, ADIFF, CBC, BMP, ANEU, A1C #### [place] [address] MYOSon 03-03-2022 Myoglobin [Mass/Vol] 229.7 ng/mL High 3.0-110.0 [facility] ([place]) Comment on above: Result Comment: No te - New Reference Range in effect 19 Performed By: #### L IPID, GFR, ADIFF, CBC, BMP, ANEU, A1C #### [address] [address] PROon 03-03-2022 INR Coag (PPP) [Relative time] 1.5 {INR} Normal [facility] ([place]) Comment on above: Result Comment: [employer] (CHEST, 1992, 102:[id number]) recommended therapeutic range for oral anticoagulant therapy is: LOW RISK: Prophylaxis of venous thrombosis INR: 2.0-3.0 Treatment of pulmonary embolism 2.0-3.0 Prevention of systemic embolism 2.0-3.0 HIGH RISK: Mechanical prosthetic valves 2.5-3.5 Performed By: #### L IPID, GFR, ADIFF, CBC, BMP, ANEU, A1C #### [address] [address] PT Coag (PPP) [Time] 18.0 s High 9.0-14.9 [facility] ([place]) Comment on above: Result Comment: Effe ctive 09/01/07, Protime results may be affected by some antibiotics (i.e. Ciprofloxacin, Azithromycin, Bactrim) which may potentiate the action of oral anticoagulants, with further increase in Protime/INR. Performed By: #### L IPID, GFR, ADIFF, CBC, BMP, ANEU, A1C #### [place] [id number] UAon 03-03-2022 Color (U) Yellow Normal [facility] ([place]) Comment on above: Performed By: #### A ROXANA #### [place] [id number] Glucose (U) [Mass/Vol] Negative Normal Negative [facility] ([place]) Comment on above: Performed By: #### A SHAKIR SCHMIDT #### [place] [id number] Ketones Ql (U) Negative Normal Neg-Trace [facility] ([place]) Comment on above: Performed By: #### A ROXANA #### [address] [address] UA Appear Clear Normal Clear [facility] ([place]) Comment on above: Performed By: #### A ROXANA #### [address] [address] UA Blood Negative Normal Neg-Trace [facility] ([place]) Comment on above: Performed By: #### A ROXANA #### [place] [address] [address] UA Leuk Est Negative Normal Negative [facility] ([place]) Comment on above: Performed By: #### A ROXANA, #### [address] [address] UA Nitrite Negative Normal Negative [facility] ([place]) Comment on above: Performed By: #### A ROXANA, HH #### [place] [address] UA pH 5.5 Normal 5.0 - 8.0 [facility] ([place]) Comment on above: Performed By: #### A ROXANA HH #### [address] [address] UA Protein Trace Normal Negative [facility] ([place]) Comment on above: Performed By: #### A SHAKIR SCHMIDT #### [place] [address] UA Spec Grav >=1.030 Abnormal 1.006-1.029 [facility] ([place]) Comment on above: Performed By: #### A ROXANA #### [place] [address] UA Specimen Type Clean Catch Normal [facility] ([place]) Comment on above: Performed By: #### A ROXANA, #### [place] [address] UA Urobilinogen 1.0 E.U./dL Normal 0.2-1.0 [facility] ([place]) Comment on above: Performed By: #### A ROXANA, SHAKIR #### [place] [address] Urobilinogen (U) [Mass/Vol] Negative Normal Neg-Trace [facility] ([place]) Comment on above: Performed By: #### A SHAKIR SCHMIDT #### [place] [address] Von 03-02-2022 Ethanol Level <10.0 Normal [facility] ([place]) Comment on above: Performed By: #### A SHAKIR SCHMIDT #### [place] [address] HHon 03-02-2022 Hematocrit (Bld) [Volume fraction] 35.7 % Low 40.0-52.0 [facility] ([place]) Comment on above: Performed By: #### A ROXANA, SHAKIR #### [address] [address] Hgb 12.1 G/dL Low 13.0-17.5 [facility] ([place]) Comment on above: Performed By: #### A ROXANA, SHAKIR #### [address] [address] Glucose Glucometer (BldC) [M ass/Vol]on 06-13-2021 Glucose [Mass/Vol] 225 mg/dL 74-106 [facility] Work Phone: Comment on above: MANAGEMENT OF PATIEN T CARE PER NURSING PROTOCOL Absolute lymphocyte counton 06-12-2021 Lymphocytes Auto (Unsp spec) [#/Vol] 1.23 10*3/uL 0.83-4.51 [facility] Work Phone: Basophil percentageon 2021 Basophils/100 WBC (Bld) 0.1 % 0-1 [facility] Work Phone: Chloride [Moles/Vol] 97 mmol/L 98-107 [facility] Work Phone: Eosinophils/100 WBC (Bld) 0.2 % 0-5 [facility] Work Phone: Glucose [Mass/Vol] 266 mg/dL 74-106 [facility] Work Phone: Comment on above: Glucose result great er than or equal to 200 mg/dLsuggests DIABETES MELLITUS per A.D.A. criteria. Neutrophils (Bld) [#/Vol] 12.8 10*3/uL 2.0-7.7 [facility] Work Phone: [phone] Neutrophils/100 WBC (Bld) 81.9 % 47-70 [facility] Work Phone: Potassium [Moles/Vol] 4.2 mmol/L 3.5-5.1 [facility] Work Phone: Sodium [Moles/Vol] 135 mmol/L 136-145 [facility] Work Phone: WBC (Bld) [#/Vol] 15.6 10*3/uL 4.4-11.0 [facility] Work Phone: Blood erythrocytes count (nu mber/volume)on 06-12-2021 RBC (Bld) [#/Vol] 3.97 10*6/uL 4.6-6.2 [facility] Work Phone: Blood hemoglobin measurement (mass/volume)on [...] Work Phone: Magnesium [Mass/Vol] 1.9 mg/dL 1.6-2.6 [facility] Work Phone: Urea nitrogen/Creatinine [Mass ratio] 35.3 [...] 06-12-2021 MCHC (RBC) [Mass/Vol] 34.3 g/dL 32-36 [facility] Work Phone: No Panel Informationon 06-12 Estimated [...] (mass/volume)on 06-12-2021 Calcium [Mass/Vol] 8.7 mg/dL 8.5-10.1 [facility] Work Phone: Serum or plasma creatinine m easurement (mass/volume)on 06-12-2021 Creatinine [Mass/Vol] 1.73 mg/dL 0.70-1.30 [facility] Work Phone: Comment on above: The validity [...] Work Phone: Chloride [Moles/Vol] 88 mmol/L 98-107 [facility] Work Phone: Eosinophils/100 WBC (Bld) 0.0 % 0-5 [facility] Work Phone: Glucose [Mass/Vol] 736 mg/dL 74-106 [facility] Work Phone: Comment on above: Critical [...] Potassium [Moles/Vol] 5.1 mmol/L 3.5-5.1 [facility] Work Phone: Sodium [Moles/Vol] 128 mmol/L 136-145 [facility] Work Phone: WBC (Bld) [#/Vol] 15.3 10*3/uL 4.4-11.0 [facility] Work Phone: Blood erythrocytes count (nu mber/volume)on 06-11-2021 RBC (Bld) [#/Vol] 4.35 10*6/uL 4.6-6.2 [facility] Work Phone: Blood hemoglobin measurement (mass/volume)on [...] [M ass/Vol]on 06-11-2021 Glucose [Mass/Vol] mg/dL 74-106 [facility] Work Phone: Comment on above: MANAGEMENT [...] 06-11-2021 MCHC (RBC) [Mass/Vol] 33.8 g/dL 32-36 [facility] Work [facility]: No Panel Informationon 06-11 [...] urement (mass/volume)on 06-11-2021 Acetone [Mass/Vol] Negative NEG [facility] Work Phone: Serum or plasma calcium gilda urement (mass/volume)on 06-11-2021 Calcium [Mass/Vol] 9.6 mg/dL 8.5-10.1 [facility] Work Phone: Serum or plasma creatinine m easurement (mass/volume)on 06-11-2021 Creatinine [Mass/Vol] 2.20 mg/dL 0.70-1.30 [facility] Work Phone: Comment on above: The validity [...] Work Phone: Bilirubin [Mass/Vol] 0.80 mg/dL 0.20-1.00 [facility] Work Phone: Comment on above: For patients on eltr ombopag therapy, use of Dimension Lamar TBIL is not recommended. Chloride [Moles/Vol] 98 mmol/L 98-107 [facility] Work Phone: Eosinophils/100 WBC (Bld) 0.3 % 0-5 [facility] Work Phone: Glucose [Mass/Vol] 329 mg/dL 74-106 [facility] Work Phone: Comment on above: Glucose result great er than or equal to 200 mg/dLsuggests DIABETES MELLITUS per A.D.A. criteria. Neutrophils (Bld) [#/Vol] 12.2 10*3/uL 2.0-7.7 [facility] Work Phone: Neutrophils/100 WBC (Bld) 81.3 % 47-70 [facility] Work Phone: Potassium [Moles/Vol] 4.9 mmol/L 3.5-5.1 [facility] Work Phone: Protein [Mass/Vol] 6.8 g/dL 6.4-8.2 [facility] Work Phone: Sodium [Moles/Vol] 133 mmol/L 136-145 [facility] Work Phone: WBC (Bld) [#/Vol] 15.0 10*3/uL 4.4-11.0 [facility] Work Phone: Blood erythrocytes count (nu mber/volume)on 06-01-2021 RBC (Bld) [#/Vol] 4.58 10*6/uL 4.6-6.2 [facility] Work Phone: Blood hemoglobin measurement (mass/volume)on [...] 41.1 % 40-54 [facility] Work Phone: [phone] Laboratory - Chemistry and C hemistry - challengeon 06-01-2021 ALP [Catalytic activity/Vol] 89 U/L 45-117 [facility] Work Phone: ALT [Catalytic activity/Vol] 43 U/L 16-61 [facility] Work Phone: [phone] CO2 [Moles/Vol] 29.0 mmol/L 21.0-32.0 [facility] Work Phone: [phone] Globulin (S) [Mass/Vol] 3.6 g/dL 2.2-4.2 [facility] Work Phone: [phone] Urea nitrogen/Creatinine [Mass ratio] 30.0 mg/mg 10-20 [facility] Work Phone: [phone] Laboratory - Hematology and Cell countson 06-01-2021 Erythrocyte distribution width (RBC) [Entitic vol] 42.2 fL 35.1-43.9 [facility] Work Phone: [phone] Erythrocyte distribution width (RBC) [Ratio] 12.8 % 11.6-14.6 [facility] Work Phone: [phone] Immature granulocytes/100 WBC (Bld) 2.700 % 0.0-0.9 [facility] Work Phone: [phone] Comment on above: IG% - Immature Granu locytes (promyelocytes, myelocytes and metamyelocytes) > 1% indicates that a LEFT SHIFT is Present. MCH (RBC) [Entitic mass] 30.3 pg 27.0-32.0 [facility] Work Phone: [phone] Nucleated RBC/100 WBC (Bld) [Ratio] 0 % 0-5 [facility] Work Phone: [phone] MCHC Auto (RBC) [Mass/Vol]on 06-01-2021 MCHC (RBC) [Mass/Vol] 33.8 g/dL 32-36 [facility]: No Panel Informationon 06-01 [...] For more information see Policy Stat Procedure Lamar High Sensitivity Troponin (TNIH) and attachments. Platelets bldon 06-01-2021 Platelets (Bld) [#/Vol] 265 10*3/uL 150-450 [facility] Work Phone: Serum or plasma albumin gilda urement (mass/volume)on 06-01-2021 Albumin [Mass/Vol] 3.2 g/dL 3.2-5.0 [facility] Work Phone: Serum or plasma albumin/glob ulin mass ratioon 06-01-2021 Albumin/Globulin [Mass ratio] 0.9 {ratio} 0.9-2.4 [facility] Work Phone: Serum or plasma calcium gilda urement (mass/volume)on 06-01-2021 Calcium [Mass/Vol] 9.4 mg/dL 8.5-10.1 [facility] Work Phone: Serum or plasma creatinine m easurement (mass/volume)on 06-01-2021 Creatinine [Mass/Vol] 1.60 mg/dL 0.70-1.30 [facility] Work Phone: Comment on above: The validity [...] 0.92 10*3/uL 0.83-4.51 [facility] Work Phone: [phone] Basophil percentageon 2021 Basophils/100 WBC (Bld) 0.3 % 0-1 [facility] Work Phone: Chloride [Moles/Vol] 102 mmol/L 98-107 [facility] Work Phone: Eosinophils/100 WBC (Bld) 0.8 % 0-5 [facility] Work Phone: Glucose [Mass/Vol] 210 mg/dL 74-106 [facility] Work Phone: Comment on above: Glucose result great er than or equal to 200 mg/dLsuggests DIABETES MELLITUS per A.D.A. criteria. Neutrophils (Bld) [#/Vol] 5.5 10*3/uL 2.0-7.7 [facility] Work Phone: Neutrophils/100 WBC (Bld) 76.2 % 47-70 [facility] Work Phone: Potassium [Moles/Vol] 5.2 mmol/L 3.5-5.1 [facility] Work Phone: Sodium [Moles/Vol] 135 mmol/L 136-145 [facility] Work Phone: [phone] WBC (Bld) [#/Vol] 7.2 10*3/uL 4.4-11.0 [facility] Work Phone: Blood erythrocytes count (nu mber/volume)on 05-27-2021 RBC (Bld) [#/Vol] 4.55 10*6/uL 4.6-6.2 [facility] Work Phone: Blood hemoglobin measurement (mass/volume)on [...] 05-27-2021 MCHC (RBC) [Mass/Vol] 33.3 g/dL 32-36 [facility] Work Phone: No Panel Informationon 05-27 Estimated [...] For more information see Policy Stat Procedure Lamar High Sensitivity Troponin (TNIH) and attachments. Platelets bldon 05-27-2021 Platelets (Bld) [#/Vol] 184 10*3/uL 150-450 [facility] Work Phone: Serum or plasma calcium gilda urement (mass/volume)on 05-27-2021 Calcium [Mass/Vol] 9.1 mg/dL 8.5-10.1 [facility] Work Phone: Serum or plasma creatinine m easurement (mass/volume)on 05-27-2021 Creatinine [Mass/Vol] 2.16 mg/dL 0.70-1.30 [facility] Work Phone: Comment on above: The validity [...] Facility 08-06-2024 08:37-0400 Body height 172.72 cm [facility] 08-06-2024 08:37-0400 Body mass index (BMI) [Ratio] 28.8 kg/m2 [facility] 08-06-2024 08:37-0400 Body weight 85.95 kg [facility] 08-05-2024 07:59-0400 Body mass index (BMI) [Ratio] 28.4 kg/m2 [facility] 08-05-2024 07:59-0400 Body temperature 97.4 [degF] [facility] 08-05-2024 07:59-0400 Body weight 84.82 kg [facility] 08-05-2024 07:59-0400 Diastolic blood pressure 61 mm[Hg] [facility] 08-05-2024 07:59-0400 Heart rate 48 /min [facility] 08-05-2024 07:59-0400 Respiratory rate 18 /min [facility] 08-05-2024 07:59-0400 SaO2% (BldA) [Mass fraction] 92 % [facility] 08-05-2024 07:59-0400 Systolic blood pressure 130 mm[Hg] [facility] 07-08-2024 14:39-0400 Body mass index (BMI) [Ratio] 27.5 kg/m2 [facility] 07-08-2024 14:11-0400 Heart rate 43 /min [facility] 07-08-2024 14:11-0400 SaO2% (BldA) [Mass fraction] 98 % [facility] 07-08-2024 13:51-0400 Body height 172.72 cm [facility] 07-08-2024 13:51-0400 Body weight 82.1 kg [facility] 07-08-2024 13:37-0400 Diastolic blood pressure 69 mm[Hg] [facility] 07-08-2024 13:37-0400 Systolic blood pressure 142 mm[Hg] [facility] 08-07-2022 10:27-0400 Body temperature 97.34 [degF] ELIEZER PRO MD [facility] 08-07-2022 10:27-0400 Body weight 97.3 kg ELIEZER PRO MD [facility] 08-07-2022 10:27-0400 Diastolic Blood Pressure Non-Invasive 59 1 ELIEZER PRO MD [facility] 08-07-2022 10:27-0400 Heart rate 50 /min ELIEZER PRO MD [facility] 08-07-2022 10:27-0400 Respiratory rate 16 /min ELIEZER PRO MD [facility] 08-07-2022 10:27-0400 Systolic Blood Pressure Non-Invasive 192 1 ELIEZER PRO MD [facility] 06-13-2021 13:20-0400 Diastolic blood pressure 61 mm[Hg] [...] 10:03-0400 Body height 172.[address] Ghassan Munoz [...] Encounter Type Care Provider Facility Start: 08-30-2024 [facility] Start: 08-25-2024 [facility] Start: 08-16-2024 End: 08-16-[address] [facility] Start: 08-16-2024 End: 08-16-[address] [facility] Work Phone: Start: 08-05-2024 End: 08-05-2024 Patient encounter procedure Maria Luisa [facility] Work Phone: Start: 08-05-2024 End: 08-05-2024 ambulatory [facility] Work Phone: Start: 08-04-2024 [facility] Work [facility] Start: 07-16-2024 End: 07-17-2024 ambulatory [facility] Work Phone: Start: 07-16-2024 End: 07-17-[address] [facility] Work Phone: Start: 07-15-2024 Encounter for genera l adult medical examination without abnormal findings [facility] Start: 07-14-2024 Registered [facility] Work Phone: Start: 07-08-2024 End: 07-08-2024 ambulatory [facility] Work Phone: Start: 07-08-2024 End: 07-08-[address] [facility] Work Phone: Start: 07-08-2024 End: 07-08-2024 ambulatory [facility] Start: 04-23-2024 End: 04-23-2024 Emergency department patient visit FELIZ Centeno [facility] Start: 02-10-2024 End: 02-10-2024 [facility] Start: 01-08-2024 End: 01-09-2024 ambulatory RITU OLIVA [facility] Start: 11-27-2023 End: 11-27-2023 Emergency department patient visit JUDITH Odonnell [facility] Start: 07-17-2023 End: 07-17-2023 ambulatory JEFERSON GUTIERRES [facility] Start: 08-07-2022 End: 08-07-2022 Emergency department patient visit [facility] Facility: Start: 08-07-2022 End: 08-07-2022 Emergency department patient visit ELIEZER PRO MD [facility] Start: 03-02-2022 End: 03-04-2022 ambulatory NANCY PINEDA Facility: Start: 01-08-2022 Emergency department patient visit DR JUDITH Odonnell [facility] Start: 06-13-2021 Non-patient / Non-visit Dr. Ghassan Munoz Work Phone: [facility] Start: 06-12-2021 Non-patient / Non-visit Dr. Ghassan Munoz Work Phone: [facility] Start: 06-11-2021 End: 06-13-2021 Evaluation and management of inpatient Dr. Ghassan Munoz Work Phone: [facility]Int[facility] Start: 06-01-2021 End: 06-01-2021 Emergency department patient visit Dr. Ghassan Munoz Work Phone: [facility]Emergency Department Start: 05-27-2021 End: 05-27-2021 Emergency department patient [facility] Start: 05-22-2021 End: 05-22-[address] Ghassan Munoz Work Phone: [facility]-Laboratory, Specimen Start: 05-22-2021 End: 05-22-[address] Ghassan Munoz Work Phone: [facility] Start: 05-08-2021 End: 05-08-[address] Ghassan Munoz Work Phone: [facility] Start: 02-05-2021 End: 02-05-[address] Ghassan Munoz Work Phone: [facility] Procedures Date Procedure Procedure Detail Performing [...] of respiratory function [facility] Patient Education [facility] Work Phone: Patient referral [facility] Work Phone: Walking distance 6 minutes [facility] Immunizations Immunization Date Immunization Notes Care Provider Piter oshea 12-25-[address] Ghassan Munoz Work Phone: [facility] Payers Date Payer Category Payer [employer] ( and others) [id number] 2024 Self-pay [id number] 2022 [employer] ( and others) [id number] 2006 Medicare [id number] 1945 Unknown [id number] [id number] .627 1945 Unknown [id number] 2.16.840.1.212754.3.579.2 .627 1945 Unknown [id number] 2.16.840.1.318530.3.579.2 .651 1945 Unknown [id number] 2.16.840.1.308590.3.579.2 .651 1945 Unknown [id number] 2.16.840.1.453494.3.579.2 .651 1945 Unknown [id number] 2.16.840.1.051158.3.579.2 .651 1945 Unknown [id number] 2.16.840.1.451114.3.579.2 .651 Unknown [facility] SEE NOTE [id number] Unknown [id number] Unknown [id number] 2.16.840.1.463187.3.579.2 .462 Unknown [id number] 2.16.840.1.525170.3.579.2 .462 Unknown [id number] 2.16.840.1.376009.3.579.2 .462 Unknown [id number] 2.16.840.1.896350.3.579.2 .462 Unknown [id number] 2.16.840.1.717029.3.579.2 .462 Unknown [id number] 2.16840.1.343345.3.579.2 .462 Social History Date Type Detail Facility Start: 05-27-2021 End: 06-12-2021 Tobacco smoking status DEIS Unknown if ever smoked [facility] Work Phone: Start: 03-16-2019 None [facility] Start: 03-16-2019 Spouse/ Signif icant Other [facility] Start: 03-16-2019 Cigarettes [facility] Start: 1945 Sex Assigned At Male W [facility] Tobacco smoking status [facility] Start: 07-08-2024 Tobacco smoking status NHIS Ex-smoker (finding) [facility] Functional Status Date Assessment Result Facility 08-07-2022 Functional Status Assistive Device None A [facility] 06-13-2021 Functional status Chair [facility] Work Phone: Mental Status Date Assessment Result Facility 06-13-2021 Cognitive function Voice/Name [facility] Work Phone: Clinical Notes 01-07-2022 to 08-05-2024 Note Date & Type Note Facility 08-05-2024 Evaluation note Diagnosis Onset Date Resolution DEMAR (obstructive sleep apnea) acute August 05, 2024 8:09am Chronic respiratory failure chronic August 05, 2024 8:09am 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 August 05 8:09am [facility] Work Phone: [phone] 518-750105-26-2025 History and physical note Author Gerardo Lawrence [facility] Note Date/Time July 12, 2024 6:44p m [facility] Pulmonary Rehab Reports [address] [place] [address] [place] - History & Physical MR#: [id number] Acct: [id number] Name: BRYN AYON Rep #:[id number] : 1945 78 From: Gerardo Perkins BS, RVT [facility]CP: [facility] History of Present Illness General Arrival date:: 07/08/24 Arrival time:: 13:30 Date of Referral:: 06/29/24 Date of Evaluation: 07/08/24 Referring Physician: [place] Primary Diagnosis: COPD History of Present Pulmonary [...] Do you have a Healthcare Power of Project Drilling Engineer?: Yes Living Will: Yes Advance Directives Information [...] 2.25 x 20 Promus Synergy stent[facility] is also status post three-vessel [facility] [place] [facility] [place], with subsequent catheterizations and stents over the last 5 years, the specifics of which are difficult to interpret Atherosclerosis of coronary artery of rincon heart I25.10 Successful PTCA/ODILON distal LCX with a 2.25 x 20 Promus Synergy stent,10/26/2018 per [facility] Patient is also status post three-vessel bypass surgery [place] [facility] [place],

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
--- OUTSIDE RECORDS SUMMARY | 2024-08-31 03:40 | XMS RPT_ITS | CCD ---
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 07-08-2024 [place] - History & Physical [facility] Reports [address] [place] [address] [place] - History Physical MR#: [id number] Acct: [id number] Name: BRYN AYON Rep #: [id number] : 1945 78 From: Gerardo Perkins BS, RVT PCP: [facility] History of Present Illness General Arrival date:: 07/08/24 Arrival time:: 13:30 Date of Referral:: 06/29/24 Date of Evaluation: 07/08/24 Referring Physician: [place] Primary Diagnosis: COPD History of Present Pulmonary [...] sublingual Q3-5M PRN chest pain #12 grams 10/18/19 albuterol sulfate 2.5 mg/3 mL [...] Do you have a Healthcare Power of Telegraph Office Telephone Clerk?: Yes Living Will: Yes Advance Directives Information [...] of c (more content not included)... Normal [facility] [place] - Individual Treatment Pl anon 07-08-2024 [place] - Individual Treatment Plan [facility] Pulmonary Rehab Reports [address] [place] [address] [place] - Individual Treatment Plan MR#: [id number] Acct: [id number] Name: BRYN AYON Rep #: [id number] : 1945 78 From: Gerardo Perkins BS, RVT PCP: [facility] General Information2 General Information Admitting Diagnosis: COPD PFT FEV1:: 56 FVC:: 63 FEV1/FVC%:: 88 Personal Learning Style/Barriers Personal Learning Style:: Audio/Visual Barriers to Learning: None Education/Goals [place] Patient Goals: Increase muscle strength: Initial Assessment, [...] Exercise Modalities: Treadmill, Rower, Schwinn Airdyne AD-7, Xceleron (Chapter 11)Fit Stepper, [employer] Pro-II Ergometer and [employer] Lateral [place] Intensity: 60-80% of age predicted maximum heart [...] derpression o (more content not included)... Normal [facility] CHEST 2 VIEWSon 04-23-2024 CHEST 2 VIEWS [place] [address] Patient: BRYN AYON Phone#: : 1945 Age: 78 Gender: M Pt. Type: ER Account: [id number] Location: [facility] Ordering: FELIZ CAMPA Exam Date: 04/23/2024/11:51 Family Phys: Charge Code: 687924 Physician: Wharton Order #: [id number] Dose#: PROCEDURE: X-RAY CHEST 2 VIEWS COMPARISON: [facility], XR, CHEST 1 VIEW, 01/08/2024, 17:23. [facility], XR, CHEST 1 VIEW, 02/10/2024, 13:49. INDICATIONS: [...] Teresa Garcia MD on 04/23/2024 at 12:14 Normal [facility] ED MED ADMINISTRATION DETAIL on 04-23-2024 ED MED ADMINISTRATION DETAIL Stock Associate Medication Administration Record [address] [address] [id number] 04/23/2024 Patient: BRYN AYON Sex: Male : 1945 Age: 78y MEASUREMENTS: Wt: 80.7 kg, Ht/Hector: 68.0 in, BMI: 27.06 ALLERGIES: No known drug allergies Medication Ordered Medication Administration Date/Time 1 of 1 Normal [facility] ED NURSES CLINICAL NOTEon ED NURSES CLINICAL NOTE Nurse Narrative Nurse Clinical Narrative [address] [address] [id number] 04/23/2024 Patient: BRYN AYON Sex: Male : 1945 Age: 78y Primary Insurance: MEDICARE OUTPATIENT Policy Number: [id number] Subscriber: Other Secondary Insurance: [employer] OUTPATIENT Policy Number: [id number] Subscriber: Other Disposition: Discharge Disposition Decision Time: [...] 04/23/24 MAYO Carson R.N.Correction -- 12:30 04/23/24 MAYO Merino R.Ph. Symbicort 160 mcg-4.5 mcg/actuation HFA aerosol inhaler: 1 inhalation . (unknown frequency) -- 12:04/23/24 EST Des Carson R.N.Correction -- 12:30 04/23/24 EST Noe EscalantePh. Lantus U-100 Insulin 100 unit/mL subcutaneous solution: 6 units once a day . (unknown freqency) -- 12:04/23/24 EST Noe EscalantePh. Vitamin D3 50 mcg (2,000 unit) tablet: once a day . -- 12:04/23/24 Melita Kennedy.Ph. amiodarone 200 mg tablet: once a day . -- 12:04/23/24 Noe KennedyPh. aspirin 81 mg tablet,delayed release: once a day . -- 12:04/23/24 Melita Kennedy.Ph. Jardiance 25 mg tablet: 12.5 mg once a day . -- 12:04/23/24 Noe KennedyPh. losartan 25 mg tablet: once a day . -- 12:04/23/24 Melita Kennedy.Ph. Ozempic 2 mg/dose (8 mg/3 mL) subcutaneous pen injector: weekly . -- 12:04/23/24 Noe KennedyPh. Miralax 17 gram/dose oral powder: once a day as needed. -- 12:04/23/24 Melita Kennedy.Ph. Spiriva Respimat 2.5 mcg/actuation solution for inhalation: 2 inhalations once a day . -- 12:04/23/24 EST Melita Escalante.Ph. albuterol sulf 90 mcg/actuation breath activated powder inhaler,sensor: 2 four times a day as needed. -- 12:04/23/24 Noe KennedyPh. furosemide 20 mg tablet: once a day as needed. (FOR LEG SWELLING, 3LB WEIGHT GAIN) -- 12:35 04/23/24 Melita Kennedy.Ph. ezetimibe 10 mg tablet: once a day . -- 12:35 04/23/24 Noe KennedyPh. MAGNESIUM OXIDE 420MG: once a day . -- 12:37 04/23/24 EST Noe EscalantePh. clopidogreL 75 mg tablet: once a day . -- 12:37 04/23/24 MAYO Merino R.Ph. atorvastatin 20 mg tablet: at bedtime . -- 12:38 04/23/24 EST Melita Escalante.Ph. isosorbide mononitrate ER 30 mg tablet,extended release 24 hr: once a day . -- 12:39 04/23/24 Noe KennedyPh. Nitrostat 0.4 mg sublingual tablet: as needed. -- 12:39 04/23/24 Noe KennedyPh. glucose 4 gram chewable tablet: as needed. -- 12:40 04/23/24 Noe KennedyPh. albuterol sulfate 2.5 mg/3 mL (0.083 %) solution for nebulization: Stopped 04/23/2024. -- 12:43 04/23/24 EST Feliz Campa D.O. Tamiflu 75 mg capsule: 75 mg twice a day . (START 04-21-24) -- 12:43 04/23/24 MAYO Merino R.Ph. Allergies: no known drug allergies -- 11:44 04/23/24 MAYO Carson R.N. 2 of 4 Nurse Narrative [...] Catheterization of left heart -- 11:45 04/23/24 EST Des Carson R.N. Implantation (more content not included)... Normal [facility] ED ORDER SHEET (CPOE ONLY)on 04-23-2024 ED ORDER SHEET (CPOE ONLY) Order Sheet Order Sheet [address] [address] [id number] 04/23/2024 Patient: BRYN AYON Sex: Male : 1945 Age: 78y MEASUREMENTS: Wt: 80.7 kg, Ht/Hector: 68.0 in, BMI: 27.06 ALLERGIES: No known drug allergies MEDICATION/IV/DRIP/F LUID ORDERS Order Description Priority Entered Acknowledged Completed LAB ORDERS Order Description Priority Entered Acknowledged Collected Completed DIAGNOSTIC STUDY ORDERS Order Description Priority Entered Acknowledged Completed Chest 2V Stat Stat 11:40 04/23/2024 11:48 12:07 Feliz Campa, 04/23/2024 04/23/2024 Laura Castaneda, Kimberlee Castaneda R.N. R.N. Reason for Study: Cough STAFF ORDERS Order Description Priority Entered Acknowledged Collected Completed [Electronically signed by Feliz Campa D.O. (04/23/2024 12:45 EST)] 1 of 1 Normal [facility] ED PHYSICIAN CLINICAL REPORT on 04-23-2024 ED PHYSICIAN CLINICAL REPORT Narrative Physician Clinical Narrative [address] [address] [id number] 04/23/2024 Patient: BRYN AYON Sex: Male : 1945 Age: 78y Primary Insurance: MEDICARE OUTPATIENT Policy Number: [id number] Subscriber: Other Secondary Insurance: [employer] OUTPATIENT Policy Number: [id number] Subscriber: Other Disposition: Discharge Disposition Decision Time: [...] Date: 04/23/2024 12:14:00 EST MsgRcvd: 04/23/2024 12:18 [place] [address] 3 of 5 Narrative Patient: BRYN AYON Phone#: : 1945 Age: 78 Gender: M Pt. Type: ER Account: [id number] Location: [facility] Ordering: FELIZ CAMPA Exam Date: 04/23/2024/11:51 Family Phys: Charge Code: 821764 Physician: Wharton Order #: [id number] Dose#: PROCEDURE: X-RAY CHEST 2 VIEWS COMPARISON: [facility], XR, CHEST 1 VIEW, 01/08/2024, 17:23. [facility], XR, CHEST 1 VIEW, 02/10/2024, 13:49. INDICATIONS: Cough. FINDINGS: LUNGS: Normal. No significant pulmonary parenchymal abnormalities. VASCULATURE: Normal. Unremarkable pulmonary vasculature. CARDIAC: Left chest wall cardiac device with single lead. Aortic valve stent present. MEDIASTINUM: Mediastinal surgical clips present. Aortic arch calcifications. PLEURA: Normal. No effusion or pleural thickening. BONES: Degenerative changes o (more content not included)... Normal [facility] ED SUPER BILLon 04-23-2024 ED SUPER BILL [address] [place] [address] [id number] 04/23/2024 Patient: BRYN AYON Sex: Male : 1945 Age: 78y Item Professional Category Description Facility Code Code Quantity Fee Total Nurse/E/M EMERGENCY 650675 1 $0.00 $0.00 DEPARTMENT VISIT MODERATE SEVERITY (93343-61) Grand Total $0.00 Providers Feliz Campa D.O. Chief Complaint WHEEZING. Principal Diagnosis COPD. ICD-10 Codes 1 of 2 [facility] J44.9: Chronic obstructive pulmonary disease, unspecified 2 of 2 [facility] ED VISIT SUMMARYon ED VISIT SUMMARY Visit Overview Visit Overview [address] [place] [address] [id number] 04/23/2024 Patient: BRYN AYON Sex: Male : [...] of automatic cardiac defibrillator Pacemaker watchman device Visit Overview SOCIAL HISTORY Smoking status: No [...] CLINICAL IMPRESSION COPD 4 of 4 Normal [facility] ED VITALS FLOW SHEETon 04-23 ED VITALS FLOW SHEET Vitals Vital Sign Flow Sheet [address] [address] [id number] 04/23/2024 Patient: BRYN AYON Sex: Male : 1945 Age: 78y Measurements Wt: 80.7 kg, Ht/Hector: 68.0 in, BMI: 27.06 Measured Time BP MAP HR RR O2Sat ETCO2 Temp Pain GCS RTS 12:45 04/23/2024 104/54 71 89 18 97% 97.6 F 0 11:49 04/23/2024 147/63 91 60 18 92% 97.6 F 0 1 of 1 Normal [facility] CBC + DIFFon 02-10-2024 Baso # 0.03 x10EE3/UL Normal 0.00 - 0.10 [facility] Comment on above: Performed By: #### 2 85586 #### [facility],[address] [place] [address] Basophils/100 WBC (Bld) 0.4 % Normal 0.0 - 2.0 [facility] Comment on above: Performed By: #### 2 03152 #### [facility],[address] [place] [address]292 CBC + DIFF Normal [facility] Comment on above: Result Comment: CBC- COMPLETE BLOOD COUNT Performed By: #### 2 29477 #### [facility],[address] [place] [address] EO # 0.11 x10EE3/UL Normal 0.00 - 0.50 [facility] Comment on above: Performed By: #### 2 10302 #### [facility],[address] [place] [address]63 Eosinophils/100 WBC (Bld) 1.4 % Normal 0.0 - 7.0 [facility] Comment on above: Performed By: #### 2 18755 #### [facility],[address] [place] [address] Erythrocyte distribution width (RBC) [Ratio] 14.2 % Normal 12.0 - 15.6 [facility] Comment on above: Performed By: #### 2 87518 #### [facility],[address] [place] [address]70 Hematocrit (Bld) [Volume fraction] 47.9 % Normal 40.0 - 52.0 [facility] Comment on above: Performed By: #### 2 03798 #### [facility],[address] [place] [address]223 Hemoglobin (Bld) [Mass/Vol] 16.2 g/dL Normal 13.0 - 17.5 [facility] Comment on above: Performed By: #### 2 80845 #### [facility],[address] [place] [address]36[address] Lymph # 1.38 x10EE3/UL Normal 0.80 - 2.80 [facility] Comment on above: Performed By: #### 2 73848 #### [facility],[address] [place] [address] 14771 Lymphocytes/100 WBC (Bld) 16.9 % Low 20.0 - 45.0 [facility] Comment on above: Performed By: #### 2 24484 #### [facility],[address] [place] [address] MANUAL DIFF N/A Normal [facility] Comment on above: Performed By: #### 2 10845 #### [facility],[address] [place] [address] MCH (RBC) [Entitic mass] 31 pg Normal 27 - 33 [facility] Comment on above: Performed By: #### 2 40259 #### [facility],[address] [place] [address] MCHC 34 X10 3 Normal 32 - 36 [facility] Comment on above: Performed By: #### 2 52493 #### [facility],[address] [place] [address] MCV (RBC) [Entitic vol] 92 fL Normal 81 - 98 [facility] Comment on above: Performed By: #### 2 20736 #### [facility],[address] [place] [address] Mitchell # 0.73 x10EE3/UL Normal 0.20 - 1.00 [facility] Comment on above: Performed By: #### 2 85591 #### [facility],[address] [place] [address] MONOS % 9.0 % Normal 0.0 - 10.0 [facility] Comment on above: Performed By: #### 2 12894 #### [facility],[address] [place], [place] [address] Morphology Alvaro (Bld) [Interp] REVIEWED Normal [facility] Comment on above: Performed By: #### 2 13376 #### [facility],[address] [place] [address] Neut # 5.90 x10EE3/UL Normal 1.50 - 7.10 [facility] Comment on above: Performed By: #### 2 95770 #### [facility],[address] [place] [address] Neutrophils/100 WBC (Bld) 72.3 % Normal 46.0 - 76.0 [facility] Comment on above: Performed By: #### 2 07733 #### [facility],[address] [place] [address] PLATELET 260 x10EE3/UL Normal 150 - 450 [facility] Comment on above: Performed By: #### 2 58153 #### [facility],[address] [place] [address] 35770 Platelet mean volume (Bld) [Entitic vol] 6.7 fL Normal 6.4 - 10.5 [facility] Comment on above: Result Comment: AUTO MATED DIFFERENTIAL Performed By: #### 2 49576 #### [facility],[address] [place] [address] 12002 RBC 5.24 x 10EE6/UL Normal 4.50 - 6.00 [facility] Comment on above: Performed By: #### 2 98843 #### [facility],[address] [place] [address] WBC 8.2 x 10EE3/UL Normal 4.5 - 10.8 [facility] Comment on above: Performed By: #### 2 85329 #### [facility],[address] [place] [address] CHEST 1 VIEWon 02-10-2024 CHEST 1 VIEW [place] [address] Patient: BRYN AYON Phone#: : 1945 Age: 78 Gender: M Pt. Type: ER Account: [id number] Location: [facility] Ordering: FELIZ CAMPA Exam Date: 02/10/2024/13:49 Family Phys: Charge Code: 707249 Physician: Wharton Order #: [id number] Dose#: PROCEDURE: X-RAY CHEST 1 VIEW COMPARISON: [facility], CHEST 1 VIEW, 01/08/2024, 17:23. INDICATIONS: Diaphoresis. [...] Lujan MD on 02/10/2024 at 14:20 Normal [facility] CMP with eGFRon 02-10-2024 AGE 78 years Normal [facility] Comment on above: Performed By: #### 2 03789 ####[facility],[address] [place] [address]609 Albumin [Mass/Vol] 3.9 g/dL Normal 3.4 - 5.0 [facility] Comment on above: Performed By: #### 2 56539 ####[facility],[address] [place] [address]99 Albumin/Globulin [Mass ratio] 1.1 {ratio} Normal 0.9 - 1.6 [facility] Comment on above: Performed By: #### 2 32256 ####[facility],[address] [place] [address] 03182 ALK PHOS 113 U/L Normal 46 - 116 [facility] Comment on above: Performed By: #### 2 88484 ####[facility],[address] [place] [address] 77989 ALT [Catalytic activity/Vol] 34 U/L Normal 16 - 63 [facility] Comment on above: Performed By: #### 2 27624 ####[facility],[address] [place] [address]33 Anion gap [Moles/Vol] 13 mmol/L Normal 10 - 20 [facility] Comment on above: Performed By: #### 2 89570 ####[facility],[address] [place] [address] 14112 AST [Catalytic activity/Vol] 29 U/L Normal 15 - 37 [facility] Comment on above: Performed By: #### 2 44337 ####[facility],[address] [place] [address] 02197 B/C RATIO 12 ratio Normal 0 - 30 [facility] Comment on above: Performed By: #### 2 16040 ####[facility],[address] [place] [address] 46246 Bilirubin [Mass/Vol] 1.3 mg/dL High 0.2 - 1.0 [facility] Comment on above: Performed By: #### 2 81710 ####[facility],[address] [place] [address] 14444 Calcium [Mass/Vol] 9.5 mg/dL Normal 8.5 - 10.1 [facility] Comment on above: Performed By: #### 2 25884 ####[facility],[address] [place] [address] 64435 Chloride [Moles/Vol] 101 mmol/L Normal 98 - 107 [facility] Comment on above: Performed By: #### 2 41222 ####[facility],[address] [place] [address] 80826 CMP with eGFR Normal [facility] Comment on above: Result Comment: COMP REHENSIVE METABOLIC PANEL Performed By: #### 2 27836 ####[facility],[address] [place] [address] 31761 CO2 [Moles/Vol] 31.4 mmol/L Normal 21.0 - 32.0 [facility] Comment on above: Performed By: #### 2 09548 ####[facility],[address] [place] [address] 08480 Creatinine [Mass/Vol] 2.49 mg/dL High 0.70 - 1.30 [facility] Comment on above: Performed By: #### 2 68777 ####[facility],[address] [place] [address] 22767 eGFR 25 ML/MINUTE Low 60 - 999 [facility] Comment on above: Performed By: #### 2 32995 ####[facility],[address] [place] [address] 19992 eGFR(AA) 30 ML/MINUTE Low 60 - 999 [facility] Comment on above: Result Comment: ACCO RDING TO THE NATIONAL KIDNEY DISEASE EDUCATION PROGRAM(NKDE), A NORMAL eGFR IS A VALUE GREATER THAN OR EQUAL TO 60 ML/MIN/1.73 SQ METERS. CHRONIC KIDNEY DISEASE: <60mL/MIN/1.73 SQ METERS KIDNEY FAILURE: <15mL/MIN/1.73 SQ METERS THIS TEST SHOULD ONLY BE USED FOR PATIENTS 18 YEARS OF AGE AND OLDER. Performed By: #### 2 32668 ####[facility],[address] [place] [address] 22902 Globulin (S) [Mass/Vol] 3.5 g/dL Normal 1.5 - 3.8 [facility] Comment on above: Performed By: #### 2 89698 ####[facility],[address] [place] [address] 32761 Glucose [Mass/Vol] 166 mg/dL High 74 - 106 [facility] Comment on above: Performed By: #### 2 30472 ####[facility],[address] [place] [address] 18723 Potassium [Moles/Vol] 5.0 mmol/L Normal 3.5 - 5.1 [facility] Comment on above: Performed By: #### 2 53356 ####[facility],[address] [place] [address] 48539 Protein [Mass/Vol] 7.4 g/dL Normal 6.4 - 8.2 [facility] Comment on above: Performed By: #### 2 11460 ####[facility],[address] [place] [address] Sodium [Moles/Vol] 140 mmol/L Normal 136 - 145 [facility] Comment on above: Performed By: #### 2 56232 ####[facility],[address] [place] [address] Urea nitrogen [Mass/Vol] 29 mg/dL High 7 - 18 [facility] Comment on above: Performed By: #### 2 54353 ####[facility],[address] [place], [place] [address] CORONAVIRUS (SARS) ANTIGEN T ESTon 02-10-2024 EXTERNAL QC DONE? YES Normal [facility] Comment on above: Performed By: #### 2 45672 #### [facility],[address] [place] [address] INTERNAL CONTROL PASS Normal [facility] Comment on above: Performed By: #### 2 59947 #### [facility],[address] [place] [address] SARS ANTIGEN Negative Normal NORMAL: NEGATIVE [facility] Comment on above: Performed By: #### 2 29872 #### [facility],[address] [place] [address] SEND TO ? NO Normal [facility] Comment on above: Result Comment: SARS -CoV-2 THIS TEST IS BEING USED UNDER THE FDA EUA PROCEDURE. THIS ASSAY HAS BEEN VALIDATED AT [facility] FOR USE WITH NASAL AND NASOPHARYNGEAL SWAB [...] PUBLIC HEALTH AUTHORITIES. Performed By: #### 2 63611 #### [facility],[address] [place] [address] ED MED ADMINISTRATION DETAIL on 02-10-2024 ED MED ADMINISTRATION DETAIL Stock Associate Medication Administration Record [address] [address] [id number] 02/10/2024 Patient: BRYN AYON Sex: Male : 1945 Age: 78y MEASUREMENTS: Wt: 89.4 kg, Ht/Hector: 68.0 in, BMI: 29.95 ALLERGIES: No known drug allergies Medication Ordered Medication Administration Date/Time 1 of 1 Normal [facility] ED NURSES CLINICAL NOTEon ED NURSES CLINICAL NOTE Nurse Narrative Nurse Clinical Narrative [address] [address] [id number] 02/10/2024 Patient: BRYN AYON Sex: Male : 1945 Age: 78y Disposition: Discharge to Home Disposition Decision Time: 16:34 02/10/2024 Departure Time: 16:52 02/10/2024 TRIAGE Triage time: 13:26 02/10/2024. Acuity: LEVEL 2. Chief Complaint: DIFFICULTY WALKING (dry mouth and broke out in a sweat). Onset. (15 minutes DEVELOPMENT SPEC). SEPSIS SCREEN: NEGATIVE. SIRS criteria negative. No possible sources of infection. -- 13:36 02/10/24 MAYO Anaya R.N. 13:31 02/10/24. BP: 146/62 MAP: 90. HR: 59. RR: 16. O2 saturation: 94% Temperature: 97.7 F. Pain level now 08/26. -- 13:36 02/10/24 MAYO Anaya R.N. Measurements: [...] tablet once a day. -- 13:43 02/10/24 MAOY Anaya R.N. brompheniramine-pseu doephedrine-DM 2 mg-30 mg-10 mg/5 mL oral syrup: [...] R.N. Congestive Heart Failure -- 13:33 02/10/24 MAOY Anaya R.N. ADDITIONAL SURGERIES: Catheterization of left [...] happened the last time he had a [place]. Pt denies SOB or CP. Pt does [...] left a (more content not included)... Normal [facility] ED ORDER SHEET (CPOE ONLY)on 02-10-2024 ED ORDER SHEET (CPOE ONLY) Order Sheet Order Sheet [facility] [address] [place] [address] [place] [address] [id number] 02/10/2024 Patient: BRYN AYON Sex: Male : 1945 Age: 78y MEASUREMENTS: Wt: 89.4 kg, Ht/Hector: 68.0 in, BMI: 29.95 ALLERGIES: No known drug allergies MEDICATION/IV/DRIP/F LUID ORDERS Order Description Priority Entered Acknowledged Completed [...] Sullivan, 1 of 3 Order Sheet Laura Campa.N. R.N. Rapid COVID (SARS) Stat 13:49 02/10/2024 13:51 02/10/2024 13:51 02/10/2024 ANTIGEN TEST Stat Rhonda Sullivan Lemasters, D.O. R.N. R.N. Flu Swab (Influenzae Stat 13:49 02/10/2024 13:51 02/10/2024 13:51 02/10/2024 AAg) Stat Rhonda Sullivan Lemasters, D.O. R.N. R.N. Troponin-I Stat Stat 15:32 02/10/2024 15:39 02/10/2024 Bhavik Sullivan D.O. R.NGuillaume DIAGNOSTIC STUDY ORDERS Order Description Priority Entered Acknowledged Completed Chest 1V Stat Stat 13:49 02/10/2024 13:51 13:51 Feliz Campa, 02/10/2024 02/10/2024 Rhonda Jurado R.NGuillaume RJose Reason for Study: diaphoresis STAFF ORDERS Order Description Priority Entered Acknowledged Collected Completed Oxygen titrate to 92% 13:49 02/10/2024 13:51 02/10/2024 13:51 02/10/2024 Rhonda Sullivan Lemasters, D.O. R.N. R.NGuillaume [employer] Package Symbol Stamper 13:49 02/10/2024 13:51 02/10/2024 13:51 02/10/2024 Rhonda Sullivan Lemasters, D.O. R.N. R.NGuillaume 2 of 3 Order Sheet Vital signs every 15 13:49 02/10/2024 13:51 02/10/2024 13:51 02/10/2024 minutes Rhonda Sullivan Lemasters, D.O. R.N. R.NGuillaume IV Saline Lock 13:49 02/10/2024 13:51 02/10/2024 13:51 02/10/2024 Rhonda Sullivan Lemasters, D.O. R.N. R.NGuillaume [Electronically signed by Feliz Campa D.O. (02/10/2024 16:40 EST)] 3 of 3 Normal [facility] ED PHYSICIAN CLINICAL REPORT on 02-10-2024 ED PHYSICIAN CLINICAL REPORT Narrative Physician Clinical Narrative [address] [address] [id number] 02/10/2024 Patient: BRYN AYON Sex: Male : [...] 81 tablet: 1 tablet once a day. brompheniramine-pseu doephedrine-DM 2 mg-30 mg-10 mg/5 mL oral syrup: [...] radiologist. Laboratory Tests: CBC + DIFF Final CRISTLEA: 02/10/2024 13:33:00 EST MsgRcvd: 02/10/2024 14:35 EST [...] Narrative 02/10/2024 (more content not included)... Normal [facility] ED SUPER BILLon 02-10-2024 ED SUPER BILL [address] [address] [id number] 02/10/2024 Patient: BRYN AYON Sex: Male : 1945 Age: 78y Item Professional Category Description Facility Code Code Quantity Fee Total Nurse/E/M EMERGENCY 914475 1 $0.00 $0.00 DEPARTMENT VISIT MODERATE SEVERITY (27114-72) Grand Total $0.00 Providers Feliz Campa D.O. Chief Complaint Dry mouth and diaphoresis. Principal Diagnosis Weakness. ICD-10 Codes 1 of 2 [facility] R53.1: Weakness 2 of 2 Normal [facility] ED VISIT SUMMARYon ED VISIT SUMMARY Visit Overview Visit Overview [address] [address] [id number] 02/10/2024 Patient: BRYN AYON Sex: Male : 1945 Age: 78y 02/10/2024 04:57 PM EST ED Arrival:13:28 02/10/2024 EST Status: Recent Travel:no Language:eng Adv Directive: Isolation Status: Ethnicity:N Fall Risk:risk Infectious Disease Exposure:no Measurements:5'8 / 172.7 Self-Harm Status:risk Sepsis Screen:negative cm 197.0 lb / 89.4 kg Chief Complaint:DIFFICULTY WALKING, (15 minutes DEVELOPMENT SPEC), and (dry mouth and broke out in a sweat ) ALLERGIES No Known Drug Allergies HOME MEDICATIONS asprin 81 tablet: 1 tablet once a day. brompheniramine-pseu doephedrine-DM 2 mg-30 mg-10 mg/5 mL oral syrup: (pt states not taking anymore) clopidogrel 75 mg tablet: 1 tablet once a day. fluticasone propionate 50 mcg/actuation blister powder for inhalation: 2 puff once a day. 4 Visit Overview furosemide 20 mg tablet: [...] happened the last time he had a [place]. Pt denies SOB or CP. Pt does [...] CLINICAL IMPRESSION WEAKNESS 4 of 4 Normal [facility] ED VITALS FLOW SHEETon 02-09 ED VITALS FLOW SHEET Vitals Vital Sign Flow Sheet [address] [address] [id number] 02/10/2024 Patient: BRYN AYON Sex: Male : [...] 97.7 F 7 2 of 2 Normal [facility] INFLUENZA VIRUS RAPID A/Bon 02-10-2024 INFLUENZA [...] TO THREE DAYS. RESULT CRITICAL? NO Normal [facility] Comment on above: Performed By: #### 2 94653 ####[facility],[address] [place] [address] TROPONINon 02-10-2024 HS TROPONIN 32.6 pg/mL Normal 0.0 - 76.2 [facility] Comment on above: Performed By: #### 2 55186 #### [facility],[address] [place] [address] HS TROPONIN 41.3 pg/mL Normal 0.0 - 76.2 [facility] Comment on above: Performed By: #### 2 64589 #### [facility],[address] [place], [place] [id number] CV VENOUS LEG RTon CV VENOUS LEG RT [place] [address] Patient: BRYN AYON Phone#: : 1945 Age: 78 Gender: M Pt. Type: Out Account: [id number] Location: 010 Ordering: RITU OLIVA Exam Date: 01/09/2024/8:56 Family Phys: Charge Code: [id number] Physician: Wharton Order #: [id number] Dose#: PROCEDURE: VENOUS DOPPLER RT LEG COMPARISON: None. INDICATIONS: R/O DVT TECHNIQUE: Color duplex Doppler ultrasound evaluation analysis was performed in the usual manner. ADJUNCT [employer] DEPARTMENT: HEATHER BACK RVT [facility] RISK FACTORS FOR VENOUS DISEASE: Other R/O [...] PERONEAL V + GSV GASTROC SOLEAL V ADJUNCT [employer] DEPARTMENT'S NOTES: FINDINGS: THROMBI: None visible. Continued Report - Page 2 of 2 Patient: BRYN AYON Phone#: : 1945 Age: 78 Gender: M Pt. Type: Out Account: [id number] Location: 010 Ordering: RITU OLIVA Exam Date: 01/09/2024/8:56 Family Phys: Charge Code: [id number] Physician: Wharton Order #: [id number] Dose#: COMPRESSIBILITY: Normal. OTHER: Negative. CONCLUSION: 1. No evidence of deep vein thrombus in the right lower extremity. Dictated by: Teresa Garcia MD on 01/09/2024 at 8:54 Approved by: Teresa Garcia MD on 01/09/2024 at 8:56 Normal [facility] ED MED ADMINISTRATION DETAIL on 01-09-2024 ED MED ADMINISTRATION DETAIL Stock Associate Medication Administration Record [address] [address] [id number] 01/08/2024 Patient: BRNY AYON Sex: Male : 1945 Age: 78y MEASUREMENTS: Wt: 88.5 kg, Ht/Hector: 68.0 in, BMI: 29.65 ALLERGIES: No known drug allergies Medication Ordered Medication Administration Date/Time Albuterol-Ipratropiu 18:46 01/07 Albuterol-Ipratropiu m (DuoNeb) 3mg/0.5mg Neb Tx 3 Given m [...] Site# 1. Allergies verified and confirmed 5 Melita Mcmahan.N. diluted in sodium rights. Via IV pump. Information reviewed with patient including Stopped chloride IVPB 0.9 % reason for taking this medication, signs of allergic reaction and 19:36 01/08/2024 Minibag+ 50 mL at precautions. Verbalizes understanding. - 18:53 Lolis Yi R.N. David Wade, R.N. 100 mL/hr (NOW x1) Scanned 19:36 11/21 Medication Discontinued: IV completed. Total amount infused: 50 mL. IV patency established. IV site checked: no pain, redness, or swelling. IV flushed thoroughly post-medication administration. - 20:01 David Olvera R.N. 1 of 2 Stock Associate Medication Ordered Medication Administration Date/Time doxycycline IVPB 19:42 01/07 doxycycline IVPB 100mg/100ml NS 100 mg started Started 100mg/100ml NS diluted in sodium chloride IVPB 0.9 % Minibag+ 100 mL over 1 19:42 01/08/2024 100 mg diluted in hour(s) via Site# 1. Allergies verified and confirmed 5 rights. IV Davidmorgan Olvera R.N. sodium chloride patency established. IV site checked: no pain, redness, or swelling. Stopped IVPB 0.9 % IV flushed thoroughly pre-medication administration. Information 20:40 01/08/2024 Minibag+ 100 mL reviewed with patient including reason for taking this medication. David Olvera R.N. (Concentration of Verbalizes understanding. - 19:46 David Olvera R.N. Scanned 1mg/ml, NOW x1) 20:40 01/07 Medication Discontinued: IV completed. Total amount [...] Lolis Yi R.N. 2 of 2 Normal [facility] ED NURSES CLINICAL NOTEon ED NURSES CLINICAL NOTE Nurse Narrative Nurse Clinical Narrative [address] [place] [address] [id number] 01/08/2024 Patient: BRYN AYON Sex: Male : [...] tablet: 1/2 tablet once a day. -- 17:01/08/24 MAYO Cartaegna R.N. ezetimibe 10 mg tablet: 1 tablet once a day. -- 17:31 01/08/24 MAYO Cartagena R.N. isosorbide mononitrate tablet 30mg 30m tablet once a day. -- 17:31 01/08/24 MAYO Cartagena R.N. magnesium oxide 420 mg tablet: 1 tablet twice a day. -- 17:01/08/24 MAYO Cartagena R.N. losartan 25 mg tablet: 1 tablet once a day. -- 17:01/08/24 MAYO Cartagena R.N. atorvastatin 20 mg tablet: 1 tablet once a day as directed. -- 17:01/08/24 MAYO Cartagena R.N. asprin 81 81: 1 tablet once a day. -- 17:31 01/08/24 MAYO Cartagena R.N. albuterol sulfate 2.5 mg/3 mL [...] / PSYCH: (more content not included)... Normal [facility] ED ORDER SHEET (CPOE ONLY)on 01-09-2024 ED ORDER SHEET (CPOE ONLY) Order Sheet Order Sheet [place] [id number] [facility] [place] [address] [id number] 01/08/2024 Patient: BRYN AYON Sex: Male : 1945 Age: 78y MEASUREMENTS: Wt: 88.5 kg, Ht/Hector: 68.0 in, BMI: 29.65 ALLERGIES: No known drug allergies MEDICATION/IV/DRIP/F LUID ORDERS Order Description Priority Entered Acknowledged Completed Albuterol-Ipratropiu m (DuoNeb) 18:30 01/08/2024 18:31 18:46 3mg/0.5mg Neb [...] 18:59 Krys Barr M.D. 01/08/2024 01/08/2024 Lolis Mcmahan, R.N. R.N. 1 of 4 Order Sheet Reason for [...] Lolis Diaz Katelyn Horst, M.D. R.N. R.N. Lactate, Serum Stat Stat 17:15 01/08/2024 17:46 [...] 17:55 Krys Barr M.D. 01/08/2024 01/08/2024 Lolis Mcmahan, Migdalia. R.N. Reason for Study: Cough CTA Chest w Recon Stat Stat 19:52 01/08/2024 Cancelled: Wrong Order Eliezer Constantino D.O. 19:59 EST Eliezer Constantino D.O. Order Comments: 19:52 01/08/2024: (sob, elevated dimer) Eliezer Constantino D.O. Reason for Study: Pulmonary Embolism CT Chest PE Study Stat Stat 19:59 01/08/2024 19:59 21:51 Eliezer Constantino D.O. 01/08/2024 01/08/2024 Bernard Farley, R.NGuillaume Order Comments: 19:59 01/08/2024: (sob, elevated dimer) [...] (01/08/2024 23:54 EST)] 4 of 4 Normal [facility] ED PHYSICIAN CLINICAL REPORT on 01-09-2024 ED PHYSICIAN CLINICAL REPORT Narrative Physician Clinical Narrative [facility] [address] [place] [address] [id number] 01/08/2024 Patient: BRYN AYON Sex: Male : [...] - 17. (more content not included)... Normal [facility] ED [facility]ENTER CLINICon 01-09-2024 ED [place] [address] [place] [address] [id number] 01/08/2024 Patient: BRYN AYON Sex: Male : 1945 Age: 78y Facility Professional Category Item Description Code Code Quantity Fee Total Nurse/E/M EMERGENCY 135860 1 $0.00 $0.00 DEPT VISIT HIGH SEVERITYFUNCJ (56332-82) Nurse/IV/IM/Infusion s Drip/IVPB initial 038006 1 $0.00 $0.00 (67697) Nurse/IV/IM/Infusion s Drip/IVPB seq 729382 1 $0.00 $0.00 (90797) Nurse/IV/IM/Infusion s IVP additional 345724 1 $0.00 $0.00 push (39054) Nurse/Procedures Respiratory 784903 1 $0.00 $0.00 therapy - inhalation (09165) Grand $0.00 Total Providers Krys Barr M.D. Eliezer Constantino D.O. 1 of 2 [facility] Chief Complaint DYSPNEA. Principal Diagnoses Acute dyspnea. Moderate congestive heart failure. Pneumonia. Cough hypoxia. Probable hypoxia. Probable acute cough. ICD-10 Codes R06.09: Other forms of dyspnea J18.9: Pneumonia, unspecified organism I50.9: Heart failure, unspecified 2 of 2 Normal [facility] ED VISIT SUMMARYon ED VISIT SUMMARY Visit Overview Visit Overview [facility] [address] [place] [address] [id number] 01/08/2024 Patient: BRYN AYON Sex: Male : [...] tablet: 1/2 tablet once a day. 1 4 Visit Overview ezetimibe 10 mg tablet: [...] MEDICATIONS GIVEN IN EMERGENCY DEPARTMENT 18:46 01/08/24 Albuterol-Ipratropiu m (DuoNeb) 3mg/0.5mg Neb Tx 3 mL CefTRIAXone [...] COUGH PROBABLE HYPOXIA 4 of 4 Normal [facility] ED VITALS FLOW SHEETon 01-08 ED VITALS FLOW SHEET Vitals Vital Sign Flow Sheet [facility] [address] [place] [address] [id number] 01/08/2024 Patient: BRYN AYON Sex: Male : [...] 98.0 F 0 5 of 5 Normal [facility] BMP with eGFRon 01-08-2024 AGE 78 years Normal [facility] Comment on above: Performed By: #### 2 42349 #### [facility],[address] [place] [address] Anion gap [Moles/Vol] 13 mmol/L Normal 10 - 20 [facility] Comment on above: Performed By: #### 2 26158 #### [facility],[address] [place], [place] [id number] BMP with eGFR Normal [facility] Comment on above: Result Comment: BASI C METABOLIC PANEL Performed By: #### 2 97523 #### [facility],[address] [place], [place] [id number] Calcium [Mass/Vol] 8.3 mg/dL Low 8.5 - 10.1 [facility] Comment on above: Performed By: #### 2 43763 #### [facility],[address] [place] [address] Chloride [Moles/Vol] 103 mmol/L Normal 98 - 107 [facility] Comment on above: Performed By: #### 2 78283 #### [facility],[address] [place] [address]683 CO2 [Moles/Vol] 28.5 mmol/L Normal 21.0 - 32.0 [facility] Comment on above: Performed By: #### 2 67601 #### [facility],[address] [place] [address] Creatinine [Mass/Vol] 2.05 mg/dL High 0.70 - 1.30 [facility] Comment on above: Performed By: #### 2 59599 #### [facility],[address] [place] [address]75 eGFR 31 ML/MINUTE Low 60 - 999 [facility] Comment on above: Performed By: #### 2 09745 #### [facility],[address] [place] [address] eGFR(AA) 38 ML/MINUTE Low 60 - 999 [facility] Comment on above: Result Comment: ACCO RDING TO THE NATIONAL KIDNEY DISEASE EDUCATION PROGRAM(NKDE), A NORMAL eGFR IS A VALUE GREATER THAN OR EQUAL TO 60 ML/MIN/1.73 SQ METERS. CHRONIC KIDNEY DISEASE: <60mL/MIN/1.73 SQ METERS KIDNEY FAILURE: <15mL/MIN/1.73 SQ METERS THIS TEST SHOULD ONLY BE USED FOR PATIENTS 18 YEARS OF AGE AND OLDER. Performed By: #### 2 14000 #### [facility],[address] [place] [address] Glucose [Mass/Vol] 168 mg/dL High 74 - 106 [facility] Comment on above: Performed By: #### 2 23240 #### [facility],[address] [place] [address] Potassium [Moles/Vol] 4.4 mmol/L Normal 3.5 - 5.1 [facility] Comment on above: Performed By: #### 2 69634 #### [facility],[address] [place] [address] Sodium [Moles/Vol] 140 mmol/L Normal 136 - 145 [facility] Comment on above: Performed By: #### 2 71724 #### [facility],[address] [place] [address] Urea nitrogen [Mass/Vol] 48 mg/dL High 7 - 18 [facility] Comment on above: Performed By: #### 2 38183 #### [facility],[address] [place] [address] CBC + DIFFon 01-08-2024 Baso # 0.03 x10EE3/UL Normal 0.00 - 0.10 [facility] Comment on above: Performed By: #### 2 09915 ####[facility],[address] [place] [address] Basophils/100 WBC (Bld) 0.3 % Normal 0.0 - 2.0 [facility] Comment on above: Performed By: #### 2 62713 ####[facility],[address] [place] [address] CBC + DIFF Normal [facility] Comment on above: Result Comment: CBC- COMPLETE BLOOD COUNT Performed By: #### 2 77230 ####[place] [address] EO # 0.14 x10EE3/UL Normal 0.00 - 0.50 [facility] Comment on above: Performed By: #### 2 54034 ####[place] [address] Eosinophils/100 WBC (Bld) 1.4 % Normal 0.0 - 7.0 [facility] Comment on above: Performed By: #### 2 69966 ####[place] [address] Erythrocyte distribution width (RBC) [Ratio] 13.7 % Normal 12.0 - 15.6 [facility] Comment on above: Performed By: #### 2 41591 ####[place] [address] Hematocrit (Bld) [Volume fraction] 40.6 % Normal 40.0 - 52.0 [facility] Comment on above: Performed By: #### 2 77289 ####[place] [address] Hemoglobin (Bld) [Mass/Vol] 13.4 g/dL Normal 13.0 - 17.5 [facility] Comment on above: Performed By: #### 2 99353 ####[facility],[address] [place] [address] Lymph # 0.80 x10EE3/UL Normal 0.80 - 2.80 [facility] Comment on above: Performed By: #### 2 65550 ####[facility],[address] [place] [address] Lymphocytes/100 WBC (Bld) 8.0 % Low 20.0 - 45.0 [facility] Comment on above: Performed By: #### 2 24020 ####[facility],[address] [place] [address] MANUAL DIFF N/A Normal [facility] Comment on above: Performed By: #### 2 58156 ####[facility],[address] [place] [address] MCH (RBC) [Entitic mass] 31 pg Normal 27 - 33 [facility] Comment on above: Performed By: #### 2 79536 ####[facility],[address] [place] [address] MCHC 33 X10 3 Normal 32 - 36 [facility] Comment on above: Performed By: #### 2 40251 ####[facility],[address] [place], [place] [address] MCV (RBC) [Entitic vol] 93 fL Normal 81 - 98 [facility] Comment on above: Performed By: #### 2 81184 ####[facility],[address] [place] [address] Mitchell # 0.96 x10EE3/UL Normal 0.20 - 1.00 [facility] Comment on above: Performed By: #### 2 94225 ####[facility],[address] [place] [address] MONOS % 9.6 % Normal 0.0 - 10.0 [facility] Comment on above: Performed By: #### 2 35659 ####[facility],[address],[place] [address] Morphology Alvaro (Bld) [Interp] N/A Normal [facility] Comment on above: Performed By: #### 2 93586 ####[facility],[address] [place] [address] Neut # 8.11 x10EE3/UL High 1.50 - 7.10 [facility] Comment on above: Performed By: #### 2 46600 ####[facility],[address] [place] [address] Neutrophils/100 WBC (Bld) 80.8 % High 46.0 - 76.0 [facility] Comment on above: Performed By: #### 2 48644 ####[facility],[address] [place] [address] PLATELET 203 x10EE3/UL Normal 150 - 450 [facility] Comment on above: Performed By: #### 2 19286 ####[facility],[address] [place] [address]367 Platelet mean volume (Bld) [Entitic vol] 6.7 fL Normal 6.4 - 10.5 [facility] Comment on above: Result Comment: AUTO MATED DIFFERENTIAL Performed By: #### 2 24778 ####[address] [address] RBC 4.36 x 10EE6/UL Low 4.50 - 6.00 [facility] Comment on above: Performed By: #### 2 39985 ####[facility],[address] [place] [address] WBC 10.0 x 10EE3/UL Normal 4.5 - 10.8 [facility] Comment on above: Performed By: #### 2 79923 ####[facility],[address] [place] [address] CHEST 1 VIEWon 01-08-2024 CHEST 1 VIEW [place] [address] Patient: BRYN AYON Phone#: : 1945 Age: 78 Gender: M Pt. Type: ER Account: [id number] Location: 052 Ordering: DR. KRYS BARR Exam Date: 01/08/2024/17:23 Family Phys: Charge Code: [id number] Physician: Wharton Order #: [id number] Dose#: PROCEDURE: X-RAY CHEST 1 VIEW COMPARISON: [facility], XR, CHEST 1 VIEW, 01/02/2022, 13:26. [facility], XR, CHEST 2 VIEWS, 01/08/2022, 9:57. INDICATIONS: [...] Garcia MD on 01/08/2024 at 18:02 Normal [facility] CORONAVIRUS (SARS) ANTIGEN T ESTon 01-08-2024 EXTERNAL QC DONE? YES Normal [facility] Comment on above: Performed By: #### 2 06847 #### [facility],[address] [place] [address] INTERNAL CONTROL PASS Normal [facility] Comment on above: Performed By: #### 2 06045 #### [facility],[address] [place] [address] SARS ANTIGEN Negative Normal NORMAL: NEGATIVE [facility] Comment on above: Performed By: #### 2 05226 #### [facility],[address] [place], [place] [address] SEND TO ? NO Normal [facility] Comment on above: Result Comment: SARS -CoV-2 THIS TEST IS BEING USED UNDER THE FDA EUA PROCEDURE. THIS ASSAY HAS BEEN VALIDATED AT [facility] FOR USE WITH NASAL AND NASOPHARYNGEAL SWAB [...] PUBLIC HEALTH AUTHORITIES. Performed By: #### 2 08393 #### [facility],[address] [place], [place] [id number] CT CHEST (PE PROTOCOL)on CT CHEST (PE PROTOCOL) [place] [address] Patient: BRYN AYONGuillaume Phone#: : 1945 Age: 78 Gender: M Pt. Type: ER Account: [id number] Location: 010 Ordering: ELIEZER CONSTANTINO Exam Date: 01/08/202421:25 Family Phys: Charge Code: [id number] Physician: Wharton Order #: [id number] Dose#: 8 PROCEDURE: CT CHEST WITH CONTRAST FOR PE COMPARISON: [facility], CT, CHEST PE W CON, 10/23/2018, 8:30. [...] recommend dedicated thyroid ultrasound for further characterization. [place] [address] Patient: BRYN AYON Phone#: : 1945 Age: 78 Gender: M Pt. Type: ER Account: [id number] Location: 010 Ordering: ELIEZER CONSTANTINO Exam Date: 01/08/2024/21:25 Family Phys: Charge Code: [id number] Physician: Wharton Order #: [id number] Dose#: 8 Dictated by: Teresa Garcia MD on 01/09/2024 at 11:11 Approved by: Teresa Garcia MD on 01/09/2024 at 11:19 Normal [facility] D-DIMER, QUANTITATIVEon 12-19 D-DIMER QUANT 1039 ng/ml High 0 - 230 [facility] Comment on above: Performed By: #### 2 28628 #### [facility],[address] [place], [place] [address] D-DIMER, QUANTITATIVE Normal [facility] Comment on above: Result Comment: TREVOR T D-DIMER Performed By: #### 2 77425 #### [facility],[address] [place], [place] [address] INFLUENZA VIRUS RAPID A/Bon 01-08-2024 INFLUENZA VIRUS [...] TO THREE DAYS. RESULT CRITICAL? NO Normal [facility] Comment on above: Performed By: #### 2 23296 ####[facility],[address] [place] [address]229 LACTATEon 01-08-2024 Lactate [Moles/Vol] 0.8 mmol/L Normal 0.4 - 2.0 [facility] Comment on above: Performed By: #### 2 59065 #### [facility],[address] [place] [address] 96226 NT-proBNPon 11-21-2024 Natriuretic peptide B (Bld) [Mass/Vol] 3150 pg/mL High 0 - 450 [facility] Comment on above: Performed By: #### 2 42053 #### [facility],[address] [place] [address]286 TROPONINon 01-08-2024 HS TROPONIN 33.3 pg/mL Normal 0.0 - 76.2 [facility] Comment on above: Performed By: #### 2 66231 #### [facility],[address] [place] [address]19 FACILITY CODING SUMMARYon FACILITY CODING SUMMARY Facility Coding Facility Coding Summary [address] [address] [id number] 11/27/2023 Patient: BRYN AYON Sex: Male : [...] from Providers: Splint - Short Arm (CPT: 54283-GC) -- Bryn Rosen D.O. Procedures from Nurses/Facility: Splint - Short Arm (CPT: 26114-TM) 1 of 2 Facility Coding SUPPLIES [facility] 17622-34 This is a partial abstract of information documented in the full record. Master Rigger must use independent judgment in selecting codes. CPT copyright 2022 [employer]. All Rights Reserved. 2 of 2 Normal [facility] MED ADMINISTRATION DETAILon 11-27-2023 MED ADMINISTRATION DETAIL Stock Associate Medication Administration Record [address] [address] [id number] 11/27/2023 Patient: BRYN AYON Sex: Male : 1945 Age: 78y MEASUREMENTS: Wt: 89.8 kg, Ht/Hector: 69.0 in, BMI: 29.24 ALLERGIES: No known drug allergies Medication Ordered Medication Administration Date/Time 1 of 1 Normal [facility] NURSES CLINICAL REPORT (NOTE S)on 11-27-2023 NURSES CLINICAL REPORT (NOTES) Nurse Narrative Nurse Clinical Narrative [facility] [address] [place] [address] [phone] 11/27/2023 Patient: BRYN AYON Sex: Male : [...] of infection. (11:28 11/27/2023). -- 11:31 11/27/23 EDT Willy Rodriguez R.N. 11:26 11/27/23. BP: 132/64 MAP: 87. HR: 45. RR: 16. O2 saturation: 95% Temperature: 98.6 F (oral). Pain level now 0/10. -- 11:27 11/27/23 EDT Willy Rodriguez R.N. Measurements: 11:25 11/27/23 Wt: 89.8 kg, Ht/Hector: 69.0 in, BMI: 29.24 -- 11:25 11/27/23 EDT Willy Rodriguez R.N. Medications: unable to obtain home medications -- 11:20 11/27/23 EDT Willy Rodriguez R.N. 1 of 4 Nurse Narrative Allergies: no known drug allergies -- 11:20 11/27/23 YOUSUF Rodriguez R.N. Problems: Diabetes Mellitus -- 11:21 11/27/23 YOUSUF Rodriguez R.N. Chronic kidney disease stage 3 -- 11:21 11/27/23 SUKHWINDERT Willy Rodriguez R.N. 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 Coronary Artery Disease -- 11:22 11/27/23 SUKHWINDERT Willy Rodriguez R.N. Essential Hypertension -- 11:11/27/23 SUKHWINDERT Willy Rodriguez R.N. COPD - Chronic Obstructive Pulmonary Disease -- 11:11/27/23 SUKHWINDERT Willy Rodriguez R.N. 11:18 11/27/23. Preferred pharmacy: [facility]. -- 11:31 11/27/23 YOUUSF Rodriguez R.N. ADDITIONAL SURGERIES: Catheterization of left heart -- 11:11/27/23 YOUSUF Rodriguez R.N. Implantation of automatic cardiac defibrillator -- 11:23 11/27/23 YOUSUF Rodriguez R.N. Coronary artery bypass grafts x 3 -- 11:24 11/27/23 YOUSUF Rodriguez R.N. Cholecystectomy -- 11:24 11/27/23 YOUSUF Rodriguez R.N. Pacemaker -- 11:24 11/27/23 YOUSUF Rodriguez R.N. History 11:18 11/27/23. PAST MEDICAL [...] No infectious disease exposure. -- 11:32 11/27/23 YOUSUF Rodriguez R.N. Interventions 11:18 11/27/23. Identification band on patient. Advanced care plan discussed with patient. Patient has a medical power of clinical faculty (nedra ayon). Provided by patient. -- 11:31 11/27/23 YOUSUF Rodriguez R.N. 11:18 11/27/23. To waiting room. [...] right forearm and wrist.). -- 12:38 11/27/23 YOUSUF Epstein R.N. NURSING PROGRESS NOTES 12:38 11/27/23. [...] 4 Nu (more content not included)... Normal [facility] ORDER SHEET (CPOE ONLY)on ORDER SHEET (CPOE ONLY) Order Sheet Order Sheet [address] [address] [id number] 11/27/2023 Patient: BRYN AYON Sex: Male : 1945 Age: 78y MEASUREMENTS: Wt: 89.8 kg, Ht/Hector: 69.0 in, BMI: 29.24 ALLERGIES: No known drug allergies MEDICATION/IV/DRIP/F LUID ORDERS Order Description Priority Entered Acknowledged Completed Triple Antibiotic Oint 11:56 11/27/2023 12:04 (Cusf-Jods-Wcma B)1 applic Bryn Rosen 11/27/2023 (NOW x1) Luiz. Dash Epstein R.N. LAB ORDERS Order Description Priority Entered Acknowledged Collected Completed DIAGNOSTIC STUDY ORDERS Order Description Priority Entered Acknowledged Completed STAFF ORDERS Order Description Priority Entered Acknowledged Collected Completed [Electronically signed by Bryn Rosen D.O. (11/27/2023 20:28 EDT)] 1 of 1 Normal [facility] PHYS CLINICAL REPORT AND ADD ENon 11-27-2023 PHYS CLINICAL REPORT AND ADDEN Narrative Physician Clinical Narrative [address] [address] [id number] 11/27/2023 Patient: BYRN AYON Sex: Male : 1945 Age: 78y [...] your hand. Follow-up with: Jade Latham MD, [facility], Internal Medicine, , [address], [place] [address]. Follow up in five days. Call for an appointment. (keep clean and dry. watch for signs of infection (red hot pain)). (Electronically signed by Bryn Rosen D.O. 11/27/23 20:28:43 EDT) 3 of 4 Narrative Generated by [facility] 4 of 4 [facility] PHYS CODING SUMMARY ARTIST CONSULTANT AB Cox 11-27-2023 PHYS CODING SUMMARY ARTIST CONSULTANT ABST Coding Summary Coding Summary [address] [place] [address] [id number] 11/27/2023 Patient: BRYN AYON Sex: Male : 1945 Age: 78y ICD-10 Codes S60.811A: Abrasion of right wrist, initial encounter S60.511A: Abrasion of right hand, initial encounter S61.501A: Unspecified open wound of right wrist, initial encounter CPT Codes Splint - Short Arm (CPT: 16992-QA) This is a partial abstract of information documented in the full record. Master Rigger must use independent judgment in selecting codes. CPT copyright 2022 [employer]. All Rights Reserved. 1 of 1 [facility] SUPER BILLon 11-27-2023 SUPER BILL [address] [place] [address] [id number] 11/27/2023 Patient: BRYN AYON Sex: Male : 1945 Age: 78y Item Facility Professional Category Description Code Code Quantity Fee Total Nurse/E/M EMERGENCY 708575 1 $0.00 $0.00 DEPARTMENT VISIT MODERATE SEVERITY (94665-64) Physician/Procedures Splint - Short 274362 [id number] 1 $0.00 $0.00 Arm (37525-AL) Grand Total $0.00 Providers Bryn Rosen D.O. [...] wrist, initial encounter 2 of 2 Normal [facility] VISIT SUMMARYon 11-27-2023 VISIT SUMMARY Visit Overview Visit Overview [address] [address] [id number] 11/27/2023 Patient: BRYN AYON Sex: Male : [...] 11/27/23 132/64 BP 12:52 11/27/23 130/80 HR 11:11/27/23 45 HR 12:52 11/27/23 76 RR 11:26 [...] FOREIGN BODY PRESENT 3 of 3 Normal [facility] PTH, INTACT [CCL]on 07-18-19 24 PTH, Intact 42 pg/mL Normal 15-65 [facility] Comment on above: Result Comment: [address] [place] [address] Roberto Sue III, M.D. [id number] Performed By: #### 2 63562 #### [facility],[address] [place] [address] BMP with eGFRon 07-17-2023 AGE 77 years Normal [facility] Comment on above: Performed By: #### 2 66225 #### [facility],[address] [place] [address] 34548 Anion gap [Moles/Vol] 9 mmol/L Low 10 - 20 [facility] Comment on above: Performed By: #### 2 06197 #### [facility],[address] [place] [address] 21169 BMP with eGFR Normal [facility] Comment on above: Result Comment: BASI C METABOLIC PANEL Performed By: #### 2 88757 #### [facility],[address] [place] [address]55 Calcium [Mass/Vol] 9.1 mg/dL Normal 8.5 - 10.1 [facility] Comment on above: Performed By: #### 2 08623 #### [facility],[address] [place] [address] 11822 Chloride [Moles/Vol] 105 mmol/L Normal 98 - 107 [facility] Comment on above: Performed By: #### 2 36379 #### [facility],[address] [place] [address] 92124 CO2 [Moles/Vol] 32.2 mmol/L High 21.0 - 32.0 [facility] Comment on above: Performed By: #### 2 66539 #### [facility],[address] [place] [address] 07465 Creatinine [Mass/Vol] 2.02 mg/dL High 0.70 - 1.30 [facility] Comment on above: Performed By: #### 2 13969 #### [facility],[address] [place] [address] 12596 eGFR 32 ML/MINUTE Low 60 - 999 [facility] Comment on above: Performed By: #### 2 24523 #### [facility],[address] [place] [address] 05999 eGFR(AA) 39 ML/MINUTE Low 60 - 999 [facility] Comment on above: Result Comment: ACCO RDING TO THE NATIONAL KIDNEY DISEASE EDUCATION PROGRAM(NKDE), A NORMAL eGFR IS A VALUE GREATER THAN OR EQUAL TO 60 ML/MIN/1.73 SQ METERS. CHRONIC KIDNEY DISEASE: <60mL/MIN/1.73 SQ METERS KIDNEY FAILURE: <15mL/MIN/1.73 SQ METERS THIS TEST SHOULD ONLY BE USED FOR PATIENTS 18 YEARS OF AGE AND OLDER. Performed By: #### 2 83863 #### [facility],[address] [place] [address] 10478 Glucose [Mass/Vol] 96 mg/dL Normal 74 - 106 [facility] Comment on above: Performed By: #### 2 58023 #### [facility],[address] [place] [address] 22193 Potassium [Moles/Vol] 4.1 mmol/L Normal 3.5 - 5.1 [facility] Comment on above: Performed By: #### 2 57717 #### [facility],[address] [place] [address] 19241 Sodium [Moles/Vol] 142 mmol/L Normal 136 - 145 [facility] Comment on above: Performed By: #### 2 14739 #### [facility],[address] [place] [address] 46383 Urea nitrogen [Mass/Vol] 39 mg/dL High 7 - 18 [facility] Comment on above: Performed By: #### 2 48372 #### [facility],[address] [place] [address] 25104 CBC + DIFFon 07-17-2023 Baso # 0.03 x10EE3/UL Normal 0.00 - 0.10 [facility] Comment on above: Performed By: #### 2 04780 #### [facility],[address] [place] [address] 27922 Basophils/100 WBC (Bld) 0.4 % Normal 0.0 - 2.0 [facility] Comment on above: Performed By: #### 2 06817 #### [facility],[address] [place] [address] 33411 CBC + DIFF Normal [facility] Comment on above: Result Comment: CBC- COMPLETE BLOOD COUNT Performed By: #### 2 27114 #### [facility],[address] [place] [address] 60879 EO # 0.13 x10EE3/UL Normal 0.00 - 0.50 [facility] Comment on above: Performed By: #### 2 16663 #### [facility],[address] [place] [address] 44747 Eosinophils/100 WBC (Bld) 1.7 % Normal 0.0 - 7.0 [facility] Comment on above: Performed By: #### 2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 [facility] ([place] Comment on above: Performed By: #### L IPID, GFR, ADIFF, CBC, BMP, ANEU, A1C #### [address] [address] Monocyte, Absolute 1.0 10 3/mcL Normal 0.1-1.4 Pending sale to [facility] ([place]) Comment on above: Performed By: #### L IPID, GFR, ADIFF, CBC, BMP, ANEU, A1C #### [address] [address] Monocytes/100 WBC (Bld) 10.3 % Normal 2.0-13.0 A [facility] ([place]) Comment on above: Performed By: #### L IPID, GFR, ADIFF, CBC, BMP, ANEU, A1C #### [address] [address] Neutrophils/100 WBC (Bld) 75.1 % High 50.0-75.0 [facility] ([place]) Comment on above: Performed By: #### L IPID, GFR, ADIFF, CBC, BMP, ANEU, A1C #### [address] [address] .GFRon 03-03-2022 GFR 56 ml/min/1.73sqm Normal [facility] ([place]) Comment on above: Result Comment: GFR Population [...] GFR, ADIFF, CBC, BMP, ANEU, A1C #### [address] [address] GFR Non- 46 ml/min/1.73sqm Normal [facility] ([place]) Comment on above: Result Comment: GFR Population [...] GFR, ADIFF, CBC, BMP, ANEU, A1C #### [address] [address] GFR 54 ml/min/1.73sqm Normal [facility] ([place]) Comment on above: Result Comment: GFR Population [...] GFR, ADIFF, CBC, BMP, ANEU, A1C #### [address] [address] GFR Non- 44 ml/min/1.73sqm Normal [facility] ([place]) Comment on above: Result Comment: GFR Population [...] GFR, ADIFF, CBC, BMP, ANEU, A1C #### [place] [address] .NEUABSon 03-03-2022 Neutrophil, Absolute 6.1 10 3/mcL Normal 2.3-8.1 [facility] [place] Comment on above: Performed By: #### L IPID, GFR, ADIFF, CBC, BMP, ANEU, A1C #### [place] [address] Neutrophil, Absolute 7.4 10 3/mcL Normal 2.3-8.1 [facility] [place] Comment on above: Performed By: #### L IPID, GFR, ADIFF, CBC, BMP, ANEU, A1C #### [place] [address] A1Con 03-03-2022 HbA1c (Bld) [Mass fraction] 6.7 % High 4.0-6.0 [facility] ([place]) Comment on above: Performed By: #### L IPID, GFR, ADIFF, CBC, BMP, ANEU, A1C #### [place] [address] APTTon 03-03-2022 aPTT Coag (Bld) [Time] 34.3 s Normal 25.0-35.0 [facility] Comment on above: Result Comment: For Heparin anticoagulation therapy, the recommended therapeutic range is: 54-77 seconds (APTT Correlation with Anti-Xa therapeutic range of 0.3-0.7 units/ml). PLEASE REFERENCE THE PHARMACY PROTOCOL FOR DOSING. Performed By: #### L IPID, GFR, ADIFF, CBC, BMP, ANEU, A1C #### [address] [address] Heparin dose (APTT) Unknown Normal Counts include 234 beds at the [facility] ([place]) Comment on above: Performed By: #### L IPID, GFR, ADIFF, CBC, BMP, ANEU, A1C #### [address] [address] BMPon 03-03-2022 BUN/Creatinine Ratio 18.9 ratio Normal 10.0-22.0 Pending sale to [facility] ([place]) Comment on above: Performed By: #### L IPID, GFR, ADIFF, CBC, BMP, ANEU, A1C #### [address] [address] Calcium [Mass/Vol] 8.3 mg/dL Low 8.7-10.4 [facility] ([place]) Comment on above: Performed By: #### L IPID, GFR, ADIFF, CBC, BMP, ANEU, A1C #### [place] [id number] Chloride [Moles/Vol] 110 mmol/L Normal 98-110 Pending sale to [facility] ([place]) Comment on above: Performed By: #### L IPID, GFR, ADIFF, CBC, BMP, ANEU, A1C #### [address] [address] CO2 [Moles/Vol] 29 mmol/L Normal 22-32 [facility] ([place]) Comment on above: Performed By: #### L IPID, GFR, ADIFF, CBC, BMP, ANEU, A1C #### [address] [address] Creatinine [Mass/Vol] 1.48 mg/dL High 0.60-1.40 [facility] ([place] Comment on above: Performed By: #### L IPID, GFR, ADIFF, CBC, BMP, ANEU, A1C #### [address] [address] Electrolyte Balance 5.0 mEq/L Normal 4.0-15.0 Counts include 234 beds at the [facility] ([place]) Comment on above: Performed By: #### L IPID, GFR, ADIFF, CBC, BMP, ANEU, A1C #### [address] [address] Glucose [Mass/Vol] 124 mg/dL High 82-115 [facility] ([place]) Comment on above: Performed By: #### L IPID, GFR, ADIFF, CBC, BMP, ANEU, A1C #### [address] [address] Potassium [Moles/Vol] 4.3 mmol/L Normal 3.5-5.0 [facility] ([place] Comment on above: Result Comment: Spec imen slightly hemolyzed. Performed By: #### L IPID, GFR, ADIFF, CBC, BMP, ANEU, A1C #### [place] [id number] Sodium [Moles/Vol] 144 mmol/L Normal 136-145 [facility] ([place]) Comment on above: Performed By: #### L IPID, GFR, ADIFF, CBC, BMP, ANEU, A1C #### [address] [address] Urea nitrogen [Mass/Vol] 28.0 mg/dL High 8.0-22.0 [facility] ([place]) Comment on above: Performed By: #### L IPID, GFR, ADIFF, CBC, BMP, ANEU, A1C #### [address] [address] CBCon 03-03-2022 Erythrocyte distribution width (RBC) [Ratio] 15.1 % Normal 11.5-15.5 [facility] ([place]) Comment on above: Performed By: #### L IPID, GFR, ADIFF, CBC, BMP, ANEU, A1C #### [address] [address] Hematocrit (Bld) [Volume fraction] 33.8 % Low 40.0-52.0 [facility] ([place]) Comment on above: Performed By: #### L IPID, GFR, ADIFF, CBC, BMP, ANEU, A1C #### [address] [address] Hgb 11.4 G/dL Low 13.0-17.5 [facility] ([place]) Comment on above: Performed By: #### L IPID, GFR, ADIFF, CBC, BMP, ANEU, A1C #### [place] [address] MCH (RBC) [Entitic mass] 31.5 pg Normal 27.0-33.0 [facility] ([place] Comment on above: Performed By: #### L IPID, GFR, ADIFF, CBC, BMP, ANEU, A1C #### [place] [address] MCHC 33.7 G/dL Normal 32.0-36.0 [facility] ([place] Comment on above: Performed By: #### L IPID, GFR, ADIFF, CBC, BMP, ANEU, A1C #### [place] [address] MCV (RBC) [Entitic vol] 93.4 fL Normal 81.0-100.0 A [facility] ([place]) Comment on above: Performed By: #### L IPID, GFR, ADIFF, CBC, BMP, ANEU, A1C #### [place] [address] Platelet 169 10 3/mcL Normal 150-450 [facility] ([place]) Comment on above: Performed By: #### L IPID, GFR, ADIFF, CBC, BMP, ANEU, A1C #### [place] [address] Platelet mean volume (Bld) [Entitic vol] 7.2 fL Normal 6.4-10.5 [facility] ([place] Comment on above: Performed By: #### L IPID, GFR, ADIFF, CBC, BMP, ANEU, A1C #### [place] [address] RBC 3.62 10 6/mcL Low 4.50-6.00 [facility] ([place] Comment on above: Performed By: #### L IPID, GFR, ADIFF, CBC, BMP, ANEU, A1C #### [place] [address] WBC 8.9 10 3/mcL Normal 4.5-10.8 [facility] ([place] Comment on above: Performed By: #### L IPID, GFR, ADIFF, CBC, BMP, ANEU, A1C #### [place] [address] Erythrocyte distribution width (RBC) [Ratio] 15.1 % Normal 11.5-15.5 [facility] ([place] Comment on above: Performed By: #### L IPID, GFR, ADIFF, CBC, BMP, ANEU, A1C #### [place] [address] Hematocrit (Bld) [Volume fraction] 36.1 % Low 40.0-52.0 [facility] ([place] Comment on above: Performed By: #### L IPID, GFR, ADIFF, CBC, BMP, ANEU, A1C #### [place] [address] Hgb 12.2 G/dL Low 13.0-17.5 [facility] ([place] Comment on above: Performed By: #### L IPID, GFR, ADIFF, CBC, BMP, ANEU, A1C #### [place] [address] MCH (RBC) [Entitic mass] 31.4 pg Normal 27.0-33.0 [facility] ([place] Comment on above: Performed By: #### L IPID, GFR, ADIFF, CBC, BMP, ANEU, A1C #### [place] [address] MCHC 33.9 G/dL Normal 32.0-36.0 [facility] ([place] Comment on above: Performed By: #### L IPID, GFR, ADIFF, CBC, BMP, ANEU, A1C #### [place] [address] MCV (RBC) [Entitic vol] 92.8 fL Normal 81.0-100.0 A [facility] ([place] Comment on above: Performed By: #### L IPID, GFR, ADIFF, CBC, BMP, ANEU, A1C #### [address] [address] Platelet 198 10 3/mcL Normal 150-450 [facility] ([place] Comment on above: Performed By: #### L IPID, GFR, ADIFF, CBC, BMP, ANEU, A1C #### [address] [address] Platelet mean volume (Bld) [Entitic vol] 7.1 fL Normal 6.4-10.5 [facility] ([place] Comment on above: Performed By: #### L IPID, GFR, ADIFF, CBC, BMP, ANEU, A1C #### [address] [address] RBC 3.89 10 6/mcL Low 4.50-6.00 [facility] ([place] Comment on above: Performed By: #### L IPID, GFR, ADIFF, CBC, BMP, ANEU, A1C #### [place] [id number] WBC 9.9 10 3/mcL Normal 4.5-10.8 [facility] ([place] Comment on above: Performed By: #### L IPID, GFR, ADIFF, CBC, BMP, ANEU, A1C #### [place] [address] CKon 03-03-2022 CK [Catalytic activity/Vol] 157 U/L Normal 7-185 [facility] ([place]) Comment on above: Performed By: #### L IPID, GFR, ADIFF, CBC, BMP, ANEU, A1C #### [place] [address] CMPon 03-03-2022 Albumin Level 3.5 G/dL Normal 3.2-4.8 [facility] ([place] Comment on above: Performed By: #### L IPID, GFR, ADIFF, CBC, BMP, ANEU, A1C #### [place] [address] Albumin/Globulin [Mass ratio] 1.5 {ratio} Normal 0.9-1.6 [facility] ([place] Comment on above: Performed By: #### L IPID, GFR, ADIFF, CBC, BMP, ANEU, A1C #### [address] [address] ALP [Catalytic activity/Vol] 89 U/L Normal 38-126 [facility] ([place] Comment on above: Performed By: #### L IPID, GFR, ADIFF, CBC, BMP, ANEU, A1C #### [address] [address] ALT [Catalytic activity/Vol] 15 U/L Normal 12-55 [facility] ([place] Comment on above: Performed By: #### L IPID, GFR, ADIFF, CBC, BMP, ANEU, A1C #### [address] [address] AST [Catalytic activity/Vol] 18 U/L Normal 8-34 [facility] ([place] Comment on above: Performed By: #### L IPID, GFR, ADIFF, CBC, BMP, ANEU, A1C #### [place] [id number] Bili Total 0.80 mg/dL Normal 0.20-1.20 [facility] ([place]) Comment on above: Result Comment: Use of this assay is not recommended for patients undergoing treatment with eltrombopag due to the potential for falsely elevated results. Performed By: #### L IPID, GFR, ADIFF, CBC, BMP, ANEU, A1C #### [place] [id number] BUN/Creatinine Ratio 19.0 ratio Normal 10.0-22.0 Pending sale to [facility] ([place]) Comment on above: Performed By: #### L IPID, GFR, ADIFF, CBC, BMP, ANEU, A1C #### [address] [address] Calcium [Mass/Vol] 8.6 mg/dL Low 8.7-10.4 [facility] ([place]) Comment on above: Performed By: #### L IPID, GFR, ADIFF, CBC, BMP, ANEU, A1C #### [address] [address] Chloride [Moles/Vol] 108 mmol/L Normal 98-110 Pending sale to [facility] ([place] Comment on above: Performed By: #### L IPID, GFR, ADIFF, CBC, BMP, ANEU, A1C #### [address] [address] CO2 [Moles/Vol] 31 mmol/L Normal 22-32 [facility] ([place] Comment on above: Performed By: #### L IPID, GFR, ADIFF, CBC, BMP, ANEU, A1C #### [address] [address] Creatinine [Mass/Vol] 1.53 mg/dL High 0.60-1.40 [facility] Comment on above: Performed By: #### L IPID, GFR, ADIFF, CBC, BMP, ANEU, A1C #### [address] [address] Electrolyte Balance 4.0 mEq/L Normal 4.0-15.0 Counts include 234 beds at the [facility] ([place]) Comment on above: Performed By: #### L IPID, GFR, ADIFF, CBC, BMP, ANEU, A1C #### [address] [address] Globulin 2.4 G/dL Normal 1.5-3.8 [facility] ([place] Comment on above: Performed By: #### L IPID, GFR, ADIFF, CBC, BMP, ANEU, A1C #### [address] [address] Glucose [Mass/Vol] 182 mg/dL High 82-115 [facility] ([place]) Comment on above: Performed By: #### L IPID, GFR, ADIFF, CBC, BMP, ANEU, A1C #### [address] [address] Potassium [Moles/Vol] 4.8 mmol/L Normal 3.5-5.0 [facility] [place] Comment on above: Performed By: #### L IPID, GFR, ADIFF, CBC, BMP, ANEU, A1C #### [address] [address] Sodium [Moles/Vol] 143 mmol/L Normal 136-145 [facility] ([place]) Comment on above: Performed By: #### L IPID, GFR, ADIFF, CBC, BMP, ANEU, A1C #### [place] [id number] Total Protein 5.9 G/dL Normal 5.7-8.2 [facility] ([place] Comment on above: Result Comment: No te - New Reference Range in effect 19 Performed By: #### L IPID, GFR, ADIFF, CBC, BMP, ANEU, A1C #### [place] [address] Urea nitrogen [Mass/Vol] 29.0 mg/dL High 8.0-22.0 [facility] ([place] Comment on above: Performed By: #### L IPID, GFR, ADIFF, CBC, BMP, ANEU, A1C #### [place] [address] FIBon 03-03-2022 Fibrinogen 659 mg/dL High 250-560 [facility] ([place] Comment on above: Performed By: #### L IPID, GFR, ADIFF, CBC, BMP, ANEU, A1C #### [place] [address] HHon 03-03-2022 Hematocrit (Bld) [Volume fraction] 36.8 % Low 40.0-52.0 [facility] ([place] Comment on above: Performed By: #### H H #### [place] [address] Hgb 12.3 G/dL Low 13.0-17.5 [facility] ([place] Comment on above: Performed By: #### H H #### [place] [address] Hematocrit (Bld) [Volume fraction] 36.9 % Low 40.0-52.0 [facility] ([place] Comment on above: Performed By: #### L IPID, GFR, ADIFF, CBC, BMP, ANEU, A1C #### [place] [address] Hgb 12.1 G/dL Low 13.0-17.5 [facility] ([place] Comment on above: Performed By: #### L IPID, GFR, ADIFF, CBC, BMP, ANEU, A1C #### [address] [address] LIPIDon 03-03-2022 Cholesterol [Mass/Vol] 100 mg/dL Normal 50-199 [facility] Comment on above: Result Comment: Chol esterol Reference Interval: Less than 200 Desirable 200-239 Borderline high risk 240 and above High risk Performed By: #### L IPID, GFR, ADIFF, CBC, BMP, ANEU, A1C #### [address] [address] Cholesterol in HDL [Mass/Vol] 30 mg/dL Low 40-59 [facility] ([place] Comment on above: Performed By: #### L IPID, GFR, ADIFF, CBC, BMP, ANEU, A1C #### [place] [address] Cholesterol in LDL [Mass/Vol] 51 mg/dL Normal 0-129 [facility] ([place] Comment on above: Performed By: #### L IPID, GFR, ADIFF, CBC, BMP, ANEU, A1C #### [address] [address] Triglyceride [Mass/Vol] 93 mg/dL Normal 3-149 [facility] ([place]) Comment on above: Performed By: #### L IPID, GFR, ADIFF, CBC, BMP, ANEU, A1C #### [place] [address] MYOSon 03-03-2022 Myoglobin [Mass/Vol] 229.7 ng/mL High 3.0-110.0 [facility] [place] Comment on above: Result Comment: No te - New Reference Range in effect 19 Performed By: #### L IPID, GFR, ADIFF, CBC, BMP, ANEU, A1C #### [address] [address] PROon 03-03-2022 INR Coag (PPP) [Relative time] 1.5 {INR} Normal [facility] ([place]) Comment on above: Result Comment: The [employer] (CHEST, 1992, [id number]) recommended therapeutic range for oral anticoagulant therapy is: LOW RISK: Prophylaxis of venous thrombosis INR: 2.0-3.0 Treatment of pulmonary embolism 2.0-3.0 Prevention of systemic embolism 2.0-3.0 HIGH RISK: Mechanical prosthetic valves 2.5-3.5 Performed By: #### L IPID, GFR, ADIFF, CBC, BMP, ANEU, A1C #### [address] [address] PT Coag (PPP) [Time] 18.0 s High 9.0-14.9 Pending sale to [facility] ([place]) Comment on above: Result Comment: Effe ctive 09/01/07, Protime results may be affected by some antibiotics (i.e. Ciprofloxacin, Azithromycin, Bactrim) which may potentiate the action of oral anticoagulants, with further increase in Protime/INR. Performed By: #### L IPID, GFR, ADIFF, CBC, BMP, ANEU, A1C #### [address] [address] UAon 03-03-2022 Color (U) Yellow Normal [facility] ([place] Comment on above: Performed By: #### A ROXANA #### [place] [id number] Glucose (U) [Mass/Vol] Negative Normal Negative [facility] Comment on above: Performed By: #### A ROXANA #### [address] [address] Ketones Ql (U) Negative Normal Neg-Trace [facility] ([place] Comment on above: Performed By: #### A ROXANA #### [address] [address] UA Appear Clear Normal Clear [facility] ([place] Comment on above: Performed By: #### A SHAKIR SCHMIDT #### [address] [address] UA Blood Negative Normal Neg-Trace [facility] ([place] Comment on above: Performed By: #### A SHAKIR SCHMIDT #### [place] [address] UA Leuk Est Negative Normal Negative [facility] ([place] Comment on above: Performed By: #### A ROXANA, #### [place] [id number] UA Nitrite Negative Normal Negative [facility] ([place] Comment on above: Performed By: #### A ROXANA, HH #### [place] [address] UA pH 5.5 Normal 5.0 - 8.0 [facility] ([place] Comment on above: Performed By: #### A ROXANA, HH #### [place] [address] UA Protein Trace Normal Negative [facility] ([place] Comment on above: Performed By: #### A ROXANA HH #### [place] [address] UA Spec Grav >=1.030 Abnormal 1.006-1.029 [facility] ([place] Comment on above: Performed By: #### A ROXANA #### [place] [address] UA Specimen Type Clean Catch Normal [facility] ([place] Comment on above: Performed By: #### A ROXANA #### [place] [address] UA Urobilinogen 1.0 E.U./dL Normal 0.2-1.0 [facility] ([place] Comment on above: Performed By: #### A ROXANA, HH #### [place] [address] Urobilinogen (U) [Mass/Vol] Negative Normal Neg-Trace [facility] ([place] Comment on above: Performed By: #### A ROXANA HH #### [place] [address] Von 03-02-2022 Ethanol Level <10.0 Normal [facility] ([place] Comment on above: Performed By: #### A ROXANA, SHAKIR #### [place] [address] [facility]Hon 03-02-2022 Hematocrit (Bld) [Volume fraction] 35.7 % Low 40.0-52.0 [facility] ([place]) Comment on above: Performed By: #### A ROXANA, SHAKIR #### [facility] [address] [place] [id number] Hgb 12.1 G/dL Low 13.0-17.5 [facility] ([place]) Comment on above: Performed By: #### A ROXANA, #### [facility] [address] [place] [phone] Glucose Glucometer (BldC) [M ass/Vol]on 06-13-2021 Glucose [Mass/Vol] 225 mg/dL 74-106 [facility] Work Phone: Comment on above: MANAGEMENT OF PATIEN T CARE PER NURSING PROTOCOL Absolute lymphocyte counton 06-12-2021 Lymphocytes Auto (Unsp spec) [#/Vol] 1.23 10*3/uL 0.83-4.51 [facility] Work Phone: Basophil percentageon 2021 Basophils/100 WBC (Bld) 0.1 % 0-1 [facility] Work Phone: Chloride [Moles/Vol] 97 mmol/L 98-107 [facility] Work Phone: Eosinophils/100 WBC (Bld) 0.2 % 0-5 [facility] Work Phone: Glucose [Mass/Vol] 266 mg/dL 74-106 [facility] Work Phone: Comment on above: Glucose result great er than or equal to 200 mg/dLsuggests DIABETES MELLITUS per A.D.A. criteria. Neutrophils (Bld) [#/Vol] 12.8 10*3/uL 2.0-7.7 [facility] Work Phone: Neutrophils/100 WBC (Bld) 81.9 % 47-70 [facility] Work Phone: Potassium [Moles/Vol] 4.2 mmol/L 3.5-5.1 [facility] Work Phone: Sodium [Moles/Vol] 135 mmol/L 136-145 [facility]: WBC (Bld) [#/Vol] 15.6 10*3/uL 4.4-11.0 [facility]: Blood erythrocytes count (nu mber/volume)on 06-12-2021 RBC (Bld) [#/Vol] 3.97 10*6/uL 4.6-6.2 [facility] Work Phone: Blood hemoglobin measurement (mass/volume)on 06-12-2021 Hemoglobin (Bld) [Mass/Vol] 12.1 g/dL 13.0-16.5 [facility] Work Phone: Blood lymphocytes/100 leukoc yteson 06-12-2021 Lymphocytes/100 WBC (Bld) 7.9 % 19-41 [facility] Work Phone: Blood monocytes/100 leukocyt eson 06-12-2021 Monocytes/100 WBC (Bld) 8.2 % 0-10 [facility] Work Phone: Blood platelet mean volumeon 06-12-2021 Platelet mean volume (Bld) [Entitic vol] 9.1 fL 6.2-12.0 [facility] Work Phone: Determination of erythrocyte mean corpuscular volume (MCV)on 06-12-2021 MCV (RBC) [Entitic vol] 88.9 fL 80-94 [facility] Work Phone: Hematocrit Auto (Bld) [Volum e fraction]on 06-12-2021 Hematocrit (Bld) [Volume fraction] 35.3 % 40-54 [facility] Work Phone: Laboratory - Chemistry and C hemistry - challengeon 06-12-2021 CO2 [Moles/Vol] 33.0 mmol/L 21.0-32.0 [facility] Work Phone: Magnesium [Mass/Vol] 1.9 mg/dL 1.6-2.6 [facility] Work Phone: Urea nitrogen/Creatinine [Mass ratio] 35.3 mg/mg 10-20 [facility] Work Phone: Laboratory - Hematology and Cell countson 06-12-2021 Erythrocyte distribution width (RBC) [Entitic vol] 39.7 fL 35.1-43.9 [facility] Work Phone: Erythrocyte distribution width (RBC) [Ratio] 12.2 % 11.6-14.6 [facility] Work Phone: Immature granulocytes/100 WBC (Bld) 1.700 % 0.0-0.9 [facility] Work Phone: Comment on above: IG% - Immature Granu locytes (promyelocytes, myelocytes and metamyelocytes) > 1% indicates that a LEFT SHIFT is Present. MCH (RBC) [Entitic mass] 30.5 pg 27.0-32.0 [facility] Work Phone: Nucleated RBC/100 WBC (Bld) [Ratio] 0 % 0-5 [facility] Work Phone: MCHC Auto (RBC) [Mass/Vol]on 06-12-2021 MCHC (RBC) [Mass/Vol] 34.3 g/dL 32-36 [facility] Work Phone: No Panel Informationon 06-12 Estimated Creatinine Clearance Calc 35.14 ml/min [facility] Work Phone: Estimated GFR (MDRD) Amer 50 mL/min >60 [facility] Work Phone: Comment on above: GFR Calc Estimated GFR (MDRD) Non-Af Amer 41 mL/min >60 [facility] Work Phone: Comment on above: Non- GFR Calc Platelets bldon 06-12-2021 Platelets (Bld) [#/Vol] 230 10*3/uL 150-450 [facility] Work Phone: Serum or plasma calcium gilda urement (mass/volume)on 06-12-2021 Calcium [Mass/Vol] 8.7 mg/dL 8.5-10.1 [facility] Work Phone: Serum or plasma creatinine m easurement (mass/volume)on 06-12-2021 Creatinine [Mass/Vol] 1.73 mg/dL 0.70-1.30 [facility] Work Phone: Comment on above: The validity of the calculated GFR & GFRAA in patients over 70 years has not been determined. Clinical correlation is essential. Serum or plasma urea nitroge n measurement (mass/volume)on 06-12-2021 Urea nitrogen [Mass/Vol] 61 mg/dL 7-18 [facility] Work Phone: Thin prep Papanicolaou smear with manual screeningon 06-12-2021 Thin prep Papanicolaou smear with manual screening 5 5-15 [facility] Work Phone: Absolute lymphocyte counton 06-11-2021 Lymphocytes Auto (Unsp spec) [#/Vol] 0.59 10*3/uL 0.83-4.51 [facility] Work Phone: Basophil percentageon 2021 Basophils/100 WBC (Bld) 0.1 % 0-1 [facility] Work Phone: Chloride [Moles/Vol] 88 mmol/L 98-107 [facility] Work Phone: Eosinophils/100 WBC (Bld) 0.0 % 0-5 [facility] Work Phone: Glucose [Mass/Vol] 736 mg/dL 74-106 [facility] Work Phone: Comment on above: Critical Result(s) C alled at: 22:37:16 06/11/2021 by: JR GALAN TO DIONY HDEZ. Results read back by same.Glucose result greater than or equal to 200 mg/dLsuggests DIABETES MELLITUS per A.D.A. criteria. Neutrophils (Bld) [#/Vol] 13.6 10*3/uL 2.0-7.7 [facility] Work Phone: Neutrophils/100 WBC (Bld) 88.7 % 47-70 [facility] Work Phone: Potassium [Moles/Vol] 5.1 mmol/L 3.5-5.1 [facility] Work Phone: Sodium [Moles/Vol] 128 mmol/L 136-145 [facility] Work Phone: WBC (Bld) [#/Vol] 15.3 10*3/uL 4.4-11.0 [facility] Work Phone: Blood erythrocytes count (nu mber/volume)on 06-11-2021 RBC (Bld) [#/Vol] 4.35 10*6/uL 4.6-6.2 [facility] Work Phone: Blood hemoglobin measurement (mass/volume)on 06-11-2021 Hemoglobin (Bld) [Mass/Vol] 13.2 g/dL 13.0-16.5 [facility] Work Phone: Blood lymphocytes/100 leukoc yteson 06-11-2021 Lymphocytes/100 WBC (Bld) 3.8 % 19-41 [facility] Work Phone: Blood manual differential co mment interpretation (narrative result)on 06-11-2021 Manual differential comment Alvaro (Bld) [Interp] SCANNED [facility] Work Phone: Comment on above: LYMPHOPENIA NOTED Blood monocytes/100 leukocyt eson 06-11-2021 Monocytes/100 WBC (Bld) 5.7 % 0-10 [facility] Work Phone: Blood platelet mean volumeon 06-11-2021 Platelet mean volume (Bld) [Entitic vol] 9.8 fL 6.2-12.0 [facility] Work Phone: Determination of erythrocyte mean corpuscular volume (MCV)on 06-11-2021 MCV (RBC) [Entitic vol] 89.9 fL 80-94 [facility] Work Phone: Glucose Glucometer (BldC) [M ass/Vol]on 06-11-2021 Glucose [Mass/Vol] mg/dL 74-106 [facility] Work Phone: Comment on above: MANAGEMENT OF PATIEN T CARE PER NURSING PROTOCOL Hematocrit Auto (Bld) [Volum e fraction]on 06-11-2021 Hematocrit (Bld) [Volume fraction] 39.1 % 40-54 [facility] Work Phone: Laboratory - Chemistry and C hemistry - challengeon 06-11-2021 CO2 [Moles/Vol] 32.0 mmol/L 21.0-32.0 [facility] Work Phone: Urea nitrogen/Creatinine [Mass ratio] 31.8 mg/mg 10-20 [facility] Work Phone: Laboratory - Hematology and Cell countson 06-11-2021 Erythrocyte distribution width (RBC) [Entitic vol] 41.6 fL 35.1-43.9 [facility] Work Phone: Erythrocyte distribution width (RBC) [Ratio] 12.5 % 11.6-14.6 [facility] Work Phone: Immature granulocytes/100 WBC (Bld) 1.700 % 0.0-0.9 [facility] Work Phone: Comment on above: IG% - Immature Granu locytes (promyelocytes, myelocytes and metamyelocytes) > 1% indicates that a LEFT SHIFT is Present. MCH (RBC) [Entitic mass] 30.3 pg 27.0-32.0 [facility] Work Phone: Nucleated RBC/100 WBC (Bld) [Ratio] 0 % 0-5 [facility] Work Phone: MCHC Auto (RBC) [Mass/Vol]on 06-11-2021 MCHC (RBC) [Mass/Vol] 33.8 g/dL 32-36 [facility] Work Phone: No Panel Informationon 06-11 Estimated Creatinine Clearance Calc 27.64 ml/min [facility] Work Phone: Estimated GFR (MDRD) Amer 38 mL/min >60 [facility] Work Phone: Comment on above: GFR Calc Estimated GFR (MDRD) Non-Af Amer 31 mL/min >60 [facility] Work Phone: Comment on above: Non- GFR Calc Platelets bldon 06-11-2021 Platelets (Bld) [#/Vol] 253 10*3/uL 150-450 [facility] Work Phone: Review by pathologiston 05-19 Pathologist review Alvaro (Unsp spec) [Interp] June [facility] Work Phone: Serum or plasma acetone gilda urement (mass/volume)on 06-11-2021 Acetone [Mass/Vol] Negative NEG [facility] Work Phone: Serum or plasma calcium gilda urement (mass/volume)on 06-11-2021 Calcium [Mass/Vol] 9.6 mg/dL 8.5-10.1 [facility] Work Phone: Serum or plasma creatinine m easurement (mass/volume)on 06-11-2021 Creatinine [Mass/Vol] 2.20 mg/dL 0.70-1.30 [facility] Work Phone: Comment on above: The validity of the calculated GFR & GFRAA in patients over 70 years has not been determined. Clinical correlation is essential. Serum or plasma urea nitroge n measurement (mass/volume)on 06-11-2021 Urea nitrogen [Mass/Vol] 70 mg/dL 7-18 [facility] Work Phone: Thin prep Papanicolaou smear with manual screeningon 06-11-2021 Thin prep Papanicolaou smear with manual screening 322 mOsm/KG 280-301 [facility] Work Phone: Thin prep Papanicolaou smear with manual screening 8 5-15 [facility] Work Phone: Whole blood hemoglobin A1c/t otal hemoglobin ratio (mass fraction)on 06-11-2021 HbA1c (Bld) [Mass fraction] 9.3 % 3.8-5.6 [facility] Work Phone: Comment on above: Normal < 5.7 % Predi abetic 5.7 - 6.4 % Diabetic >or= 6.5 % Please note range changes. Absolute lymphocyte counton 06-01-2021 Lymphocytes Auto (Unsp spec) [#/Vol] 0.92 10*3/uL 0.83-4.51 [facility] Work Phone: Basophil percentageon 2021 Basophils/100 WBC (Bld) 0.4 % 0-1 [facility] Work Phone: Bilirubin [Mass/Vol] 0.80 mg/dL 0.20-1.00 [facility] Work Phone: Comment on above: For patients on eltr ombopag therapy, use of Dimension [place] TBIL is not recommended. Chloride [Moles/Vol] 98 mmol/L 98-107 [facility] Work Phone: Eosinophils/100 WBC (Bld) 0.3 % 0-5 [facility] Work Phone: Glucose [Mass/Vol] 329 mg/dL 74-106 [facility] Work Phone: Comment on above: Glucose result great er than or equal to 200 mg/dLsuggests DIABETES MELLITUS per A.D.A. criteria. Neutrophils (Bld) [#/Vol] 12.2 10*3/uL 2.0-7.7 [facility] Work Phone: Neutrophils/100 WBC (Bld) 81.3 % 47-70 [facility] Work Phone: Potassium [Moles/Vol] 4.9 mmol/L 3.5-5.1 [facility] Work Phone: Protein [Mass/Vol] 6.8 g/dL 6.4-8.2 [facility] Work Phone: Sodium [Moles/Vol] 133 mmol/L 136-145 [facility] Work Phone: WBC (Bld) [#/Vol] 15.0 10*3/uL 4.4-11.0 [facility] Work [facility]: Blood erythrocytes count (nu mber/volume)on 06-01-2021 RBC (Bld) [#/Vol] 4.58 10*6/uL 4.6-6.2 [facility] Work Phone: Blood hemoglobin measurement (mass/volume)on 06-01-2021 Hemoglobin (Bld) [Mass/Vol] 13.9 g/dL 13.0-16.5 [facility] Work Phone: Blood lymphocytes/100 leukoc yteson 06-01-2021 Lymphocytes/100 WBC (Bld) 6.1 % 19-41 [facility] Work Phone: Blood monocytes/100 leukocyt eson 06-01-2021 Monocytes/100 WBC (Bld) 9.2 % 0-10 [facility] Work Phone: Blood platelet mean volumeon 06-01-2021 Platelet mean volume (Bld) [Entitic vol] 8.8 fL 6.2-12.0 [facility] Work Phone: Bronchoalveolar lavage cultu re with Gram stainon 06-01-2021 Respiratory Culture Pseudomonas aeroginosa [facility] Work Phone: Determination of erythrocyte mean corpuscular volume (MCV)on 06-01-2021 MCV (RBC) [Entitic vol] 89.7 fL 80-94 [facility] Work Phone: Gram stain for investigation of transfusion reactionon 06-01-2021 Microscopic observation Gram stain Nom (Unsp spec) [facility] Work Phone: Hematocrit Auto (Bld) [Volum e fraction]on 06-01-2021 Hematocrit (Bld) [Volume fraction] 41.1 % 40-54 [facility] Work Phone: Laboratory - Chemistry and C hemistry - challengeon 06-01-2021 ALP [Catalytic activity/Vol] 89 U/L 45-117 [facility] Work Phone: [phone] ALT [Catalytic activity/Vol] 43 U/L 16-61 [facility] Work Phone: [phone] CO2 [Moles/Vol] 29.0 mmol/L 21.0-32.0 [facility] Work Phone: [phone] Globulin (S) [Mass/Vol] 3.6 g/dL 2.2-4.2 [facility] Work Phone: [phone] Urea nitrogen/Creatinine [Mass ratio] 30.0 mg/mg 10-20 [facility] Work Phone: Laboratory - Hematology and Cell countson 06-01-2021 Erythrocyte distribution width (RBC) [Entitic vol] 42.2 fL 35.1-43.9 [facility] Work Phone: Erythrocyte distribution width (RBC) [Ratio] 12.8 % 11.6-14.6 [facility] Work Phone: [phone] Immature granulocytes/100 WBC (Bld) 2.700 % 0.0-0.9 [facility] Work Phone: Comment on above: IG% - Immature Granu locytes (promyelocytes, myelocytes and metamyelocytes) > 1% indicates that a LEFT SHIFT is Present. MCH (RBC) [Entitic mass] 30.3 pg 27.0-32.0 [facility] Work Phone: Nucleated RBC/100 WBC (Bld) [Ratio] 0 % 0-5 [facility] Work Phone: [phone] MCHC Auto (RBC) [Mass/Vol]on 06-01-2021 MCHC (RBC) [Mass/Vol] 33.8 g/dL 32-36 [facility] Work Phone: No Panel Informationon 06-01 Estimated Creatinine Clearance Calc 38.00 ml/min [facility] Work Phone: Estimated GFR (MDRD) Amer 54 mL/min >60 [facility] Work Phone: Comment on above: GFR Calc Estimated GFR (MDRD) Non-Af Amer 45 mL/min >60 [facility] Work Phone: Comment on above: Non- GFR Calc Troponin I High Sensitivity 25 pg/mL 3.0-78.0 [facility] Work Phone: Comment on above: Please Note: [place] t Units and Gender Specific Reference Ranges. For more information see Policy Stat Procedure [place] High Sensitivity Troponin (TNIH) and attachments. Platelets bldon 06-01-2021 Platelets (Bld) [#/Vol] 265 10*3/uL 150-450 [facility] Work Phone: Serum or plasma albumin gilda urement (mass/volume)on 06-01-2021 Albumin [Mass/Vol] 3.2 g/dL 3.2-5.0 [facility] Work Phone: Serum or plasma albumin/glob ulin mass ratioon 06-01-2021 Albumin/Globulin [Mass ratio] 0.9 {ratio} 0.9-2.4 [facility] Work Phone: Serum or plasma calcium gilda urement (mass/volume)on 06-01-2021 Calcium [Mass/Vol] 9.4 mg/dL 8.5-10.1 [facility] Work Phone: Serum or plasma creatinine m easurement (mass/volume)on 06-01-2021 Creatinine [Mass/Vol] 1.60 mg/dL 0.70-1.30 [facility] Work Phone: Comment on above: The validity of the calculated GFR & GFRAA in patients over 70 years has not been determined. Clinical correlation is essential. Serum or plasma urea nitroge n measurement (mass/volume)on 06-01-2021 Urea nitrogen [Mass/Vol] 48 mg/dL 7-18 [facility] Work Phone: Thin prep Papanicolaou smear with manual screeningon 06-01-2021 Thin prep Papanicolaou smear with manual screening 16 U/L 15-37 [facility] Work Phone: Thin prep Papanicolaou smear with manual screening 6 5-15 [facility] Work Phone: Absolute lymphocyte counton 05-27-2021 Lymphocytes Auto (Unsp spec) [#/Vol] 0.92 10*3/uL 0.83-4.51 [facility] Work Phone: Basophil percentageon 2021 Basophils/100 WBC (Bld) 0.3 % 0-1 [facility] Work Phone: Chloride [Moles/Vol] 102 mmol/L 98-107 [facility] Work Phone: Eosinophils/100 WBC (Bld) 0.8 % 0-5 [facility] Work Phone: Glucose [Mass/Vol] 210 mg/dL 74-106 [facility] Work Phone: Comment on above: Glucose result great er than or equal to 200 mg/dLsuggests DIABETES MELLITUS per A.D.A. criteria. Neutrophils (Bld) [#/Vol] 5.5 10*3/uL 2.0-7.7 [facility] Work Phone: Neutrophils/100 WBC (Bld) 76.2 % 47-70 [facility] Work Phone: Potassium [Moles/Vol] 5.2 mmol/L 3.5-5.1 [facility] Work Phone: [phone] Sodium [Moles/Vol] 135 mmol/L 136-145 [facility] Work Phone: WBC (Bld) [#/Vol] 7.2 10*3/uL 4.4-11.0 [facility] Work Phone: Blood erythrocytes count (nu mber/volume)on 05-27-2021 RBC (Bld) [#/Vol] 4.55 10*6/uL 4.6-6.2 [facility] Work Phone: Blood hemoglobin measurement (mass/volume)on 05-27-2021 Hemoglobin (Bld) [Mass/Vol] 13.9 g/dL 13.0-16.5 [facility] Work Phone: Blood lymphocytes/100 leukoc yteson 05-27-2021 Lymphocytes/100 WBC (Bld) 12.8 % 19-41 [facility] Work Phone: Blood monocytes/100 leukocyt eson 05-27-2021 Monocytes/100 WBC (Bld) 9.5 % 0-10 [facility] Work Phone: Blood platelet mean volumeon 05-27-2021 Platelet mean volume (Bld) [Entitic vol] 8.8 fL 6.2-12.0 [facility] Work Phone: Determination of erythrocyte mean corpuscular volume (MCV)on 05-27-2021 MCV (RBC) [Entitic vol] 91.9 fL 80-94 [facility] Work Phone: Hematocrit Auto (Bld) [Volum e fraction]on 05-27-2021 Hematocrit (Bld) [Volume fraction] 41.8 % 40-54 [facility] Work Phone: Laboratory - Chemistry and C hemistry - challengeon 05-27-2021 CO2 [Moles/Vol] 30.0 mmol/L 21.0-32.0 [facility] Work Phone: Natriuretic peptide B (Bld) [Mass/Vol] 111.0 pg/mL 0-100 [facility] Work Phone: Urea nitrogen/Creatinine [Mass ratio] 22.7 mg/mg 10-20 [facility] Work Phone: Laboratory - Hematology and Cell countson 05-27-2021 Erythrocyte distribution width (RBC) [Entitic vol] 45.6 fL 35.1-43.9 [facility] Work Phone: Erythrocyte distribution width (RBC) [Ratio] 13.2 % 11.6-14.6 [facility] Work Phone: Immature granulocytes/100 WBC (Bld) 0.400 % 0.0-0.9 [facility] Work Phone: Comment on above: IG% - Immature Granu locytes (promyelocytes, myelocytes and metamyelocytes) > 1% indicates that a LEFT SHIFT is Present. MCH (RBC) [Entitic mass] 30.5 pg 27.0-32.0 [facility] Work Phone: Nucleated RBC/100 WBC (Bld) [Ratio] 0 % 0-5 [facility] Work Phone: MCHC Auto (RBC) [Mass/Vol]on 05-27-2021 MCHC (RBC) [Mass/Vol] 33.3 g/dL 32-36 [facility] Work Phone: No Panel Informationon 05-27 Estimated Creatinine Clearance Calc 29.09 ml/min [facility] Work Phone: Estimated GFR (MDRD) Amer 38 mL/min >60 [facility] Work Phone: Comment on above: GFR Calc Estimated GFR (MDRD) Non-Af Amer 32 mL/min >60 [facility] Work Phone: Comment on above: Non- GFR Calc Troponin I High Sensitivity 15 pg/mL 3.0-78.0 [facility] Work Phone: Comment on above: Please Note: [place] t Units and Gender Specific Reference Ranges. For more information see Policy Stat Procedure [place] High Sensitivity Troponin (TNIH) and attachments. Platelets bldon 05-27-2021 Platelets (Bld) [#/Vol] 184 10*3/uL 150-450 [facility] Work Phone: Serum or plasma calcium gilda urement (mass/volume)on 05-27-2021 Calcium [Mass/Vol] 9.1 mg/dL 8.5-10.1 [facility] Work Phone: Serum or plasma creatinine m easurement (mass/volume)on 05-27-2021 Creatinine [Mass/Vol] 2.16 mg/dL 0.70-1.30 [facility] Work Phone: Comment on above: The validity of the calculated GFR & GFRAA in patients over 70 years has not been determined. Clinical correlation is essential. Serum or plasma urea nitroge n measurement (mass/volume)on 05-27-2021 Urea nitrogen [Mass/Vol] 49 mg/dL 7-18 [facility] Work Phone: Thin prep Papanicolaou smear with manual screeningon 05-27-2021 Thin prep Papanicolaou smear with manual screening 3 07-01 [facility] Work Phone: Vital Signs Date Time Vital Sign Value Performing Clinician Facility 08-31-2024 03:00-0400 Body temperature 96.9 [degF] [facility] 08-31-2024 03:00-0400 Diastolic blood pressure 70 mm[Hg] [facility] 08-31-2024 03:00-0400 Heart rate 66 /min [facility] 08-31-2024 03:00-0400 Respiratory rate 18 /min [facility] 08-31-2024 03:00-0400 SaO2% (BldA) [Mass fraction] 97 % [facility] 08-31-2024 03:00-0400 Systolic blood pressure 162 mm[Hg] [facility] 08-31-2024 01:30-0400 Inhaled oxygen concentration 30 % [facility] 08-31-2024 01:04-0400 Inhaled oxygen flow rate 5 L/min [facility] 08-31-2024 00:57-0400 Body height 172.72 cm [facility] 08-31-2024 00:57-0400 Body mass index (BMI) [Ratio] 28 kg/m2 [facility] 08-31-2024 00:57-0400 Body weight 83.5 kg [facility] 08-06-2024 08:37-0400 Body height 172.72 cm [facility] 08-06-2024 08:37-0400 Body mass index (BMI) [Ratio] 28.8 kg/m2 [facility] 08-06-2024 08:37-0400 Body weight 85.95 kg [facility] 08-05-2024 07:59-0400 Body mass index (BMI) [Ratio] 28.4 kg/m2 [facility] 08-05-2024 07:59-0400 Body temperature 97.4 [degF] [facility] 08-05-2024 07:59-0400 Body weight 84.82 kg [facility] 08-05-2024 07:59-0400 Diastolic blood pressure 61 mm[Hg] [facility] 08-05-2024 07:59-0400 Heart rate 48 /min [facility] 08-05-2024 07:59-0400 Respiratory rate 18 /min [facility] 08-05-2024 07:59-0400 SaO2% (BldA) [Mass fraction] 92 % [facility] 08-05-2024 07:59-0400 Systolic blood pressure 130 mm[Hg] [facility] 07-08-2024 14:39-0400 Body mass index (BMI) [Ratio] 27.5 kg/m2 [facility] 07-08-2024 14:11-0400 Heart rate 43 /min [facility] 07-08-2024 14:11-0400 SaO2% (BldA) [Mass fraction] 98 % [facility] 07-08-2024 13:51-0400 Body height 172.72 cm [facility] 07-08-2024 13:51-0400 Body weight 82.1 kg [facility] 07-08-2024 13:37-0400 Diastolic blood pressure 69 mm[Hg] [facility] 07-08-2024 13:37-0400 Systolic blood pressure 142 mm[Hg] [facility] 08-07-2022 10:27-0400 Body temperature 97.34 [degF] ELIEZER PRO MD [facility] 08-07-2022 10:27-0400 Body weight 97.3 kg ELIEZER PRO MD [facility] 08-07-2022 10:27-0400 Diastolic Blood Pressure Non-Invasive 59 1 ELIEZER PRO MD [facility] 08-07-2022 10:27-0400 Heart rate 50 /min ELIEZER PRO MD [facility] 08-07-2022 10:27-0400 Respiratory rate 16 /min ELIEZER PRO MD [facility] 08-07-2022 10:27-0400 Systolic Blood Pressure Non-Invasive 192 1 ELIEZER PRO MD [facility] 06-13-2021 13:20-0400 Diastolic blood pressure 61 mm[Hg] Dr. Ghassan Munoz Work Phone: [facility] Work Phone: 06-13-2021 13:20-0400 Heart rate 61 /min Dr. Ghassan Munoz Work Phone: [facility] Work Phone: 06-13-2021 13:20-0400 Respiratory rate 16 /min Dr. Ghassan Munoz Work Phone: [facility] Work Phone: 06-13-2021 13:20-0400 SaO2% (BldA) [Mass fraction] 100 % Dr. Ghassan Munoz Work Phone: [facility] Work Phone: 06-13-2021 13:20-0400 Systolic blood pressure 112 mm[Hg] Dr. Ghassan Munoz Work Phone: [facility] Work Phone: 06-13-2021 08:25-0400 Body temperature 97 [degF] Dr. Ghassan Munoz Work Phone: [facility] Work Phone: 06-13-2021 06:00-0400 Body weight 88.[address] Ghassan Munoz Work Phone: [facility] Work Phone: 06-12-2021 10:03-0400 Body height 172.[address] Ghassan Munoz Work Phone: [facility] Work Phone: 06-12-2021 00:34-0400 Body mass index (BMI) [Ratio] 29.9 kg/m2 Dr. Ghassan Munoz Work Phone: [facility] Work Phone: 06-11-2021 23:29-0400 Body temperature 98 [degF] Dr. Ghassan Munoz Work Phone: [facility] Work Phone: 06-11-2021 23:29-0400 Diastolic blood pressure 59 mm[Hg] Dr. Ghassan Munoz Work Phone: [facility] Work Phone: 06-11-2021 23:29-0400 Heart rate 61 /min Dr. Ghassan Munoz Work Phone: [facility] Work Phone: 06-11-2021 23:29-0400 Respiratory rate 13 /min Dr. Ghassan Munoz Work Phone: [facility] Work Phone: 06-11-2021 23:29-0400 SaO2% (BldA) [Mass fraction] 95 % Dr. Ghassan Munoz Work Phone: [facility] Work Phone: 06-11-2021 23:29-0400 Systolic blood pressure 118 mm[Hg] Dr. Ghassan Munoz Work Phone: [facility] Work Phone: 06-11-2021 20:32-0400 Body height 172.[address] Ghassan Munoz Work Phone: [facility] Work Phone: 06-11-2021 20:32-0400 Body mass index (BMI) [Ratio] 32.6 kg/m2 Dr. Ghassan Munoz Work Phone: [facility] Work Phone: 06-11-2021 20:32-0400 Body weight 97.[address] Ghassan Munoz Work Phone: [facility] Work Phone: 06-01-2021 18:44-0400 Diastolic blood pressure 56 mm[Hg] Dr. Ghassan Munoz Work Phone: [facility] Work Phone: 06-01-2021 18:44-0400 Heart rate 76 /min Dr. Ghassan Munoz Work Phone: [facility] Work Phone: 06-01-2021 18:44-0400 Respiratory rate 20 /min Dr. Ghassan Munoz Work Phone: [facility] Work Phone: 06-01-2021 18:44-0400 SaO2% (BldA) [Mass fraction] 96 % Dr. Ghassan Munoz Work Phone: [facility] Work Phone: 06-01-2021 18:44-0400 Systolic blood pressure 124 mm[Hg] Dr. Ghassan Munoz Work Phone: [facility] Work Phone: 06-01-2021 13:12-0400 Body height 172.[address] Ghassan Munoz Work Phone: [facility] Work Phone: 06-01-2021 13:12-0400 Body mass index (BMI) [Ratio] 32.6 kg/m2 Dr. Ghassan Munoz Work Phone: [facility] Work Phone: 06-01-2021 13:12-0400 Body temperature 97.5 [degF] Dr. Ghassan Munoz Work Phone: [facility] Work Phone: 06-01-2021 13:12-0400 Body weight 97.[address] Ghassan Munoz Work Phone: [facility] Work Phone: 05-27-2021 15:25-0400 Diastolic blood pressure 62 mm[Hg] Dr. Ghassan Munoz Work Phone: [facility] Work Phone: 05-27-2021 15:25-0400 Heart rate 50 /min Dr. Ghassan Munoz Work Phone: [facility] Work Phone: 05-27-2021 15:25-0400 Respiratory rate 18 /min Dr. Ghassan Munoz Work Phone: [facility] Work Phone: 05-27-2021 15:25-0400 SaO2% (BldA) [Mass fraction] 95 % Dr. Ghassan Munoz Work Phone: [facility] Work Phone: 05-27-2021 15:25-0400 Systolic blood pressure 137 mm[Hg] Dr. Ghassan Munoz Work Phone: [facility] Work Phone: 05-27-2021 14:10-0400 Body height 175.[address] Ghassan Munoz Work Phone: [facility] Work Phone: 05-27-2021 14:10-0400 Body mass index (BMI) [Ratio] 30.8 kg/m2 Dr. Ghassan Munoz Work Phone: [facility] Work Phone: 05-27-2021 14:10-0400 Body temperature 96.6 [degF] Dr. Ghassan Munoz Work Phone: [facility] Work Phone: 05-27-2021 14:10-0400 Body weight 94.[address] Ghassan Munoz Work Phone: [facility] Work Phone: 05-22-2021 14:06-0400 Body temperature 98.8 [degF] Dr. Ghassan Munoz Work Phone: [facility] Work Phone: 05-22-2021 14:06-0400 Diastolic blood pressure 77 mm[Hg] Dr. Ghassan Munoz Work Phone: [facility] Work Phone: 05-22-2021 14:06-0400 Heart rate 50 /min Dr. Ghassan Munoz Work Phone: [facility] Work Phone: 05-22-2021 14:06-0400 Respiratory rate 16 /min Dr. Ghassan Munoz Work Phone: [facility] Work Phone: 05-22-2021 14:06-0400 SaO2% (BldA) [Mass fraction] 93 % Dr. Ghassan Munoz Work Phone: [facility] Work Phone: 05-22-2021 14:06-0400 Systolic blood pressure 150 mm[Hg] Dr. Ghassan Munoz Work Phone: [facility] Work Phone: 05-08-2021 15:07-0400 Body mass index (BMI) [Ratio] 31.7 kg/m2 Dr. Ghassan Munoz Work Phone: [facility] Work Phone: 05-08-2021 15:07-0400 Body temperature 98.3 [degF] Dr. Ghassan Munoz Work Phone: [facility] Work Phone: 05-08-2021 15:07-0400 Body weight 97.[address] Ghassan Munoz Work Phone: [facility] Work Phone: 05-08-2021 15:07-0400 Diastolic blood pressure 54 mm[Hg] Dr. Ghassan Munoz Work Phone: [facility] Work Phone: 05-08-2021 15:07-0400 Heart rate 52 /min Dr. Ghassan Munoz Work Phone: [facility] Work Phone: 05-08-2021 15:07-0400 Respiratory rate 16 /min Dr. Ghassan Munoz Work Phone: [facility] Work Phone: 05-08-2021 15:07-0400 SaO2% (BldA) [Mass fraction] 97 % Dr. Ghassan Munoz Work Phone: [facility] Work Phone: 05-08-2021 15:07-0400 Systolic blood pressure 109 mm[Hg] Dr. Ghassan Munoz Work Phone: [facility] Work Phone: 02-05-2021 12:20-0500 Body mass index (BMI) [Ratio] 32.2 kg/m2 Dr. Ghassan Munoz Work Phone: [facility] Work Phone: 02-05-2021 12:20-0500 Body temperature 98.7 [degF] Dr. Ghassan Munoz Work Phone: [facility] Work Phone: 02-05-2021 12:20-0500 Body weight 97.[address] Ghassan Munoz Work Phone: [facility] Work Phone: 02-05-2021 12:20-0500 Diastolic blood pressure 69 mm[Hg] Dr. Ghassan Munoz Work Phone: [facility] Work Phone: 02-05-2021 12:20-0500 Heart rate 55 /min Dr. Ghassan Munoz Work Phone: [facility] Work Phone: 02-05-2021 12:20-0500 Respiratory rate 16 /min Dr. Ghassan Munoz Work Phone: [facility] Work Phone: 02-05-2021 12:20-0500 Systolic blood pressure 119 mm[Hg] Dr. Ghassan Munoz Work Phone: [facility] Work Phone: Encounters Encounter Date Encounter Type Care Provider Facility Start: 08-31-2024 Evaluation and management of inpatient Dr. Scout Lebron MD -[facility] Work Phone: Start: 08-31-2024 Non-patient / Non-visit Dr. Scout Lebron MD -[facility] Work Phone: Start: 08-30-2024 Patient encounter procedure Maria Luisa ESPAÑA -Sleep Lab Work Phone: Start: 08-30-2024 ambulatory [facility] Facility:[facility] Start: 08-30-2024 [facility] Work Phone: Start: 08-25-2024 ambulatory [facility] Facility:[facility] Start: 08-16-2024 End: 08-16-2024 ambulatory [facility] -Pulmonary Rehab Start: 08-16-2024 End: 08-16-2024 Discharged Recurring [facility] -Pulmonary Rehab Work Phone: Start: 08-05-2024 End: 08-05-2024 Patient encounter procedure Maria Luisa ESPAÑA -[facility] Work Phone: Start: 08-05-2024 End: 08-05-2024 ambulatory [facility] Work Phone: Start: 08-04-2024 Registered Recurring [facility] ulmonary Rehab Work Phone: Start: 07-16-2024 End: 07-17-2024 ambulatory [facility] Work Phone: Start: 07-16-2024 End: 07-17-2024 Discharged Recurring [facility] -Pulmonary Rehab Work Phone: Start: 07-15-2024 Encounter for genera l adult medical examination without abnormal findings [facility] Start: 07-14-2024 Registered Rec[facility]ring [facility] ulmonary Rehab Work Phone: Start: 07-08-2024 End: 07-08-2024 ambulatory [facility] Work Phone: Start: 07-08-2024 End: 07-08-2024 Patient encounter procedure [facility] -Pulmonary Rehab Work Phone: Start: 07-08-2024 End: 07-08-2024 ambulatory [facility] Facility:[facility] Start: 04-23-2024 End: 04-23-2024 [facility] Start: 02-10-2024 End: 02-10-2024 Emergency department patient visit FELIZ JOHNSONRHONA [facility] Start: 01-08-2024 End: 01-09-2024 ambulatory RITU OLIVA [facility] Start: 11-27-2023 End: 11-27-2023 Emergency department patient visit JUDITH WEAVER [facility] Start: 07-17-2023 End: 07-17-20[facility]: 08-07-2022 End: 08-07-2022 Emergency department patient visit [facility] Facility:A Start: 08-07-2022 End: 08-07-2022 Emergency department patient visit ELIEZER PRO MD [facility] Start: 03-02-2022 End: 03-04-2022 ambulatory NANCY PINEDA Facility:A Start: 01-08-2022 Emergency department patient visit DR JUDITH WEAVER [facility] Start: 06-13-2021 Non-patient / Non-visit Dr. Ghassan Munoz Work Phone: [facility] Start: 06-12-2021 Non-patient / Non-visit Dr. Ghassan Munoz Work Phone: [facility] Start: 06-11-2021 End: 06-13-2021 Evaluation and management of inpatient Dr. Ghassan Munoz Work Phone: [facility]ensive [facility] Unit Start: 06-01-2021 End: 06-01-2021 Emergency department patient visit Dr. Ghassan Munoz Work Phone: [facility]Emergency Department Start: 05-27-2021 End: 05-27-2021 Emergency department patient visit Dr. Ghassan Munoz Work Phone: [facility]Emergency Department Start: 05-22-2021 End: 05-22-[address] Ghassan Munoz Work Phone: [facility]-Laboratory, Specimen Start: 05-22-2021 End: 05-22-[address] Ghassan Munoz Work Phone: [facility] Start: 05-08-2021 End: 05-08-[address] Ghassan Munoz Work Phone: [facility] Start: 02-05-2021 End: 02-05-[address] Ghassan Munoz Work Phone: [facility] Procedures Date Procedure Procedure Detail Performing Clinician Start: 08-31-2024 Plain chest X-ray [facility] Start: 08-31-2024 Estimated creatinine clearance [facility] Start: 06-11-2021 Plain chest X-ray Dr. Jamila [...] Munoz Work Phone: Start: 02-05-2021 Plain chest X-ray Dr. Jamila Munoz Work Phone: Start: 02-18-1996 History of coronary artery bypass grafting S/P CABG x 3 Dr. Ghassan Munoz Work Phone: Plan of Treatment Date Care Activity Detail Author Start: 09-01-2024 Walking distance 6 minutes [facility] Start: 08-31-2024 Measurement of respiratory function [facility] Start: 08-31-2024 Verification routine [facility] Start: 08-31-2024 Admission procedure [facility] Start: 08-31-2024 Hospital admission, emergency, from emergency room, medical nature [facility] Start: 08-31-2024 Continuous pulse oximetry [facility] Start: 08-31-2024 Dual pressure sponta neous ventilation support [facility] Start: 06-01-2021 Microscopic observat ion [Identifier] in Unspecified specimen by Gram stain Gram Stain [facility] Work Phone: Start: 06-01-2021 Respiratory Culture Respiratory Cult ure [facility] Work Phone: Measurement of respiratory function [facility] Patient Education [facility] Work Phone: Patient referral [facility] Work Phone: Walking distance 6 minutes [facility] Immunizations Immunization Date Immunization Notes Care Provider Piter oshea 12-25-[address] Ghassan Munoz Work Phone: [facility] Payers Date Payer Category Payer [employer] ( [employer] others) [id number] 2024 Self-pay [id number] 2022 [employer] ( and others) [id number] 2006 Medicare [id number] 1945 Unknown [id number] .627 1945 Unknown [id number] [id number] .627 1945 Unknown [id number] [id number] .651 1945 Unknown [id number] [id number] .651 1945 Unknown [id number] [id number] .651 1945 Unknown [id number] 2.16.840.1.131133.3.579.2 .651 1945 Unknown [id number] 2.840.1.458230.3.579.2 .651 Unknown VA AUTH [facility] ED SEE NOTE [id number] Unknown [id number] Unknown [id number] [id number] .462 Unknown [id number] [id number] .462 Unknown [id number] [id number] .462 Unknown [id number] 2.16840.1.045579.3.579.2 .462 Unknown [id number] [id number] .462 Unknown [id number] [id number] .462 Social History Date Type Detail Facility Start: 05-27-2021 End: 06-12-2021 Tobacco smoking status NHIS Unknown if ever smoked [facility] Work Phone: Start: 03-16-2019 None [facility] Start: 03-16-2019 Spouse/ Signif icant Other [facility] Start: 03-16-2019 Cigarettes [facility] Start: 1945 Sex Assigned At Male [facility] Tobacco smoking status [facility] Start: 07-08-2024 End: 08-31-2024 Tobacco smoking status NHIS Ex-smoker (finding) [facility] Functional Status Date Assessment Result Facility 08-07-2022 Functional Status Assistive Device None A [facility] 06-13-2021 Functional status Chair [facility] Work Phone: Mental Status Date Assessment Result Facility 08-31-2024 Cognitive function Voice/Name [facility] Work Phone: 06-13-2021 Cognitive function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 respiratory failure secondary to COPD and CHF. [facility] Medical History (Updated 08/31/24 @ 02:[address] Michael Berger, DO) History of coronary artery disease COPD (chronic obstructive pulmonary disease) Type 2 diabetes mellitus Lung mass Smoking Stage 3 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 History of ventricular fibrillation Carpal tunnel syndrome, bilateral Pulmonary nodules Hyperlipidemia Essential hypertension Ischemic cardiomyopathy DEMAR (obstructive sleep apnea) Atherosclerosis of coronary artery bypass graft(s) without angina pectoris Atherosclerosis of coronary artery of [place] heart Congestive heart failure Chronic respiratory failure CKD (chronic kidney disease) stage 3, GFR 30-59 ml/min DM2 (diabetes mellitus, type 2) COPD (chronic obstructive pulmonary disease) NSTEMI (non-ST elevated myocardial infarction) Pneumonia, pneumococcal COPD exacerbation Acute respiratory failure with hypoxia Home Medications ?Medication ?Instructions ?Recorded ?Last Taken ?Type albuterol sulfate 90 mcg/actuation 2 puff inhalation Q 4H PRN PRN 06/05/16 03/16/19 History aerosol inhaler Shortness Of Breath rosuvastatin 40 mg tablet 40 mg PO QHS cholesterol 03/15/19 History nitroglycerin 400 mcg/spray 1 spray sublingual Q3-5M P RN chest 12/04/18 03/16/19 Rx translingual pain #12 grams albuterol sulfate 2.5 mg/3 mL 2.5 mg inhalation Q6H SC N PRN Sob 03/16/19 03/16/19 History (0.083 %) solution for nebulization &/Or Wheezing carvedilol 6.25 mg tablet 6.25 mg PO BID hypertension 03/16/19 03/16/19 History clopidogrel 75 mg tablet 75 mg PO DAILY antiplatelet 03/16/19 03/16/19 History losartan 25 mg tablet 25 mg PO DAILY hypertension 03/16/19 03/16/19 History magnesium oxide 420 mg tablet 420 mg PO BID supplement 04/20/19 Unknown History spacer #1 ea 06/04/19 Unknown Rx pantoprazole 40 mg tablet,delayed 40 mg PO DAILY #60 t abs 06/08/19 Unknown Rx release cholecalciferol (vitamin D3) 25 2,000 unit PO DAILY lopez pplement 06/10/19 Unknown History mcg (1,000 unit) tablet atorvastatin 20 mg tablet 05/27/21 Unknown History cyanocobalamin (vitamin B-12) 1,000 mcg PO DAILY 05/27 Unknown History 1,000 mcg tablet,extended release ezetimibe 10 mg tablet mg 05/27/21 Unknown History fluticasone propionate 50 intranasal 05/27/21 Unknown History mcg/actuation nasal spray,suspension amiodarone 200 mg tablet 200 mg PO DAILY 08/05/24 Unk nown History insulin glargine-yfgn 100 unit/mL 4 unit subcut DAILY 08/31/24 Unknown History (3 mL) subcutaneous pen insulin lispro 100 unit/mL 2 unit subcut .weekly 08/31 Unknown History subcutaneous pen (Humalog KwikPen (U-100) Insulin) Allergy/AdvReac Type Severity Reaction Status Date / Time No Known Allergies Allergy Verified 08/31/24 00:57 Family History (Reviewed 08/05/24 @ 08:37 by Maria Luisa Potts CHLOROBUTADIENE SCRUBBER OPERATOR, CHLOROBUTADIENE SCRUBBER OPERATOR-C) Mother Myocardial infarction Diabetes COPD (chronic obstructive pulmonary disease) Father Myocardial infarction Sister Breast cancer Colon cancer Sister Breast cancer Sister Cancer lung cancer Sister Cancer skin cancer Brother Myocardial infarction Bleeding disorder clot in heart Brother Diabetes Surgical History History of left heart catheterization (03/18/19) Presence of implantable cardioverter-defibrillator (ICD) (~2015) S/P CABG x 3 (1996) Stented coronary artery (12/30/18) Hx of cholecystectomy Social History (Reviewed 08/05/24 @ 08:37 by Maria Luisa Potts CHLOROBUTADIENE SCRUBBER OPERATOR, CHLOROBUTADIENE SCRUBBER OPERATOR-C) adopted: No household members: significant other housing: house number of children: 4 current occupational status: retired current occupational exposures/hazards: No pets and animals: No history of recent travel: No sexually active: Yes Smoking Status: Former smoker quit date: 02/18/08 pack-years: 90 Tobacco: How many years used: 45 how long ago did patient quit smokin years ago second hand exposure: Yes alcohol intake: former year quit: 1983 substance use type: does not use diet: diabetic caffeine: Yes Type: coffee Number of servings: 2 eating out: 1-3 times/week during the past year weight has: remained stable what type of physical activity do you participate in: walking seatbelt use: always do you feel safe at home: Yes ROS Constitutional Constitutional: Denies chills or fever(s) Eyes Eyes: Denies blurry vision ENT HEENT: Denies abnormal hearing Cardiovascular Cardiovascular: Reports chest pain; Denies edema Respiratory/Chest Respiratory/Chest: Reports shortness of breath at rest Gastrointestinal Gastrointestinal: Denies abdominal pain Genitourinary Genitourinary: Denies dysuria Musculoskeletal Musculoskeletal: Denies back pain Integumentary Integumentary: Denies dry skin Neurologic Neurologic: Denies abnormal gait Psychiatric Psychiatric: Denies anxiety Vital Signs Vital Signs Vital Signs: 08/31/24 00:57 08/31/24 01:03 08/31/24 01:04 Temperature 97.7 F L 97.7 F L Temperature Source Oral Oral Pulse Rate 82 80 Respiratory Rate 27 H 23 H Respiratory Effort Short of Breath Accessory Muscle Use Respiratory Depth Shallow Respiratory Pattern Tachypnea Blood Pressure 190/95 H 190/95 H Blood Pressure Mean 126 126 Pulse Ox 90 94 Oxygen Delivery Method Nasal Cannula Nasal Cannula Nasal Cannula Oxygen Flow Rate (L/min) 3 5 5 Fraction of Inspired Oxygen (FIO2) 08/31/24 01:10 08/31/24 01:30 08/31/24 01:30 Temperature Temperature Source Pulse Rate 78 76 78 Respiratory Rate 20 H 18 20 H Respiratory Effort Respiratory Depth Respiratory Pattern Normal Normal Normal Blood Pressure Blood Pressure Mean Pulse Ox 98 Oxygen Delivery Method Oxygen Flow Rate (L/min) Fraction of Inspired Oxygen (FIO2) 30 08/31/24 02:00 08/31/24 02:27 Temperature 97.7 F L 96.9 F L Temperature Source Oral Pulse Rate 68 68 Respiratory Rate 18 20 H Respiratory Effort Respiratory Depth Respiratory Pattern Blood Pressure 180/82 H 170/76 H Blood Pressure Mean 114 107 Pulse Ox 100 100 Oxygen Delivery Method Bi-pap Oxygen Flow Rate (L/min) Fraction of Inspired Oxygen (FIO2) Weight Weight: 184 lb 1.376 oz Body Mass Index (BMI) 28.0 Physical Exam Const oriented x3 General Appearance: cooperative HEENT normocephalic and head/scalp atraumatic Neck no lymphadenopathy Lymph Lymphatic: no lymphadenopathy noted Resp normal air movement Resp Narrative: On BiPAP during examination Effort and Inspection: tachypneic, respiratory distress and labored Auscultation: Negative for rhonchi or wheezes Cardio regular rate, regular rhythm, S1 normal heart sound, S2 normal heart sound and no murmurs GI normal to inspection, nondistended, normoactive bowel sounds Extremity normal capillary refill General Extremity: Negative for edema Skin General Skin Exam: no breakdown Neuro no focal motor deficits and no sensory deficits noted Speech: speech normal Psych thought process normal, cooperative and affect normal Results Lab / Micro Data 08/31/24 01:09 08/31/24 01:09 Labs: Laboratory Results - last 24 hr 08/31/24 01:09: WBC 10.5, RBC 5.08, Hgb 15.3, Hct 47.2, MCV 92.9, MCH 30.1, MCHC32.4, RDW Std Deviation 48.5 H, RDW Coeff of Momo 14.3, Plt Count 230, MPV 8.9, Immature Gran % (Auto) 0.600, Neut % (Auto) 57.9, Lymph % (Auto) 28.3, Mitchell % (Auto) 9.3, Eos % (Auto) 3.1, Baso % (Auto) 0.8, Absolute Neuts (auto) 6.1, Absolute Lymphs (auto) 2.96, Nucleated RBC % 0, Sodium 141, Potassium 4.5, Chloride 103, Carbon Dioxide 25.3, Anion Gap 13, BUN 41 H, Creatinine 1.92 H, Estim Creat Clear Calc 32.85 L, Est GFR (MDRD) Non-Af 35 L, BUN/Creatinine Ratio 21.3 H, Glucose 156 H, Calcium 9.8, Magnesium 2.1, NT pro BNP II 2407 H Imaging Radiology Impression Chest X-Ray 08/31/24 01:46 IMPRESSION: Possible mild interstitial edema. Consider follow up imaging. Reading Location: [place] [address] Assessment & Plan Assessment/Plan (1) DEMAR (obstructive sleep apnea): (2) Chronic respiratory failure: QUALIFIERS: Respiratory failure complication: hypoxia Qualified Code(s): J96.11 - Chronic respiratory failure with hypoxia (3) Stage 3 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: (4) Congestive heart failure: QUALIFIERS: Heart failure type: combined systolic and diastolic Heart failure chronicity: chronic Qualified Code(s): I50.42 - Chronic combined systolic (congestive) and diastolic (congestive) heart failure (5) Essential hypertension: (6) Hyperlipidemia: (7) History of coronary artery disease: (8) Type 2 diabetes mellitus: PLAN: Plan 1 acute on chronic respiratory failure secondary to COPD and CHF.?Admit patient to progressive care unit, continue BiPAP initiated in the emergency room 2. CHF?obtain echocardiogram, Lasix 40 mg IV daily, repeat BMP, CBC and BNP in a.m. 3. COPD?BiPAP as above, add Solu-Medrol IV every 8 hours and DuoNeb breathing treatments every 4 hours as needed 4. Diabetes?continue routine home medications 5. Hyperlipidemia?continue statin 6. Hypertension?monitor continue routine home medications and may add as neededhydralazine if necessary 7. DVT prophylaxis?SCDs due to elevated creatinine will not use low molecular weight heparin Charges/Coding Visit Charges Inpatient E&M: 52618 Init Hosp L2 08/31/24 0249 <Electronically signed by Scout Lebron MD> Cosign Signature (if applicable): CC: Dr. Scout Lebron MD; [facility]~ Signed [facility] Work Phone: Reason for referral (narrative)No reason for referral [facility] Work Phone: Chief Complaint and Reason for [...] 2024 8:09am Chronic respiratory failure August 05, 2 025 8:09am Stage 3 severe COPD by GOLD classificati on August 05, 2024 8:09am Chief Complaint Admit Date COPD July 08, 2024 1:22p m COPD July 16, 2024 10:00 am Re-establish Sleep Apnea August 05, 2024 8:09am COPD August 16, 2024 10:0 0am COPD August 30, 2024 10:0 0am previous psg not available August 30 8:09pm sob August 31, 2024 2:36 am sob August 31, 2024 2:59 am Reason for Visit Admit Date DEMAR (obstructive sleep apnea) August 05, 2024 8:09am Chronic respiratory failure August 05, 2 025 8:09am Stage 3 severe COPD by GOLD classificati on August 05, 2024 8:09am Congestive heart failure August 31, 2024 2:59am Essential hypertension August 31, 2024 2 :59am History of coronary artery disease August 31, 2024 2:59am Hyperlipidemia August 31, 2024 2:59 am DEMAR (obstructive sleep apnea) August 31, 2024 2:59am Type 2 diabetes mellitus August 31, 2024 2:59am Chronic respiratory failure August 31, 2 025 2:59am Stage 3 severe COPD by GOLD classificati on August 31, 2024 2:59am Family History Relationship Condition Age at Onset Recorded Date/T radha mother Myocardial infarction Unknown Diabetes mellitus Unknown Chronic obstructive pulmonary disease Unk nown father Myocardial infarction Unknown sister Malignant neoplasm of breast Unknown Malignant neoplasm of colon Unknown sister Malignant neoplasm Unknown brother Myocardial infarction Unknown Hemorrhagic disorder Unknown brother Diabetes mellitus Unknown Advance Directives Advance Directive Response Recorded Date/ Time Advance Directives Yes December 10:09am Living Will Yes May 27, 2021 2:18pm Power of Telegraph Office Telephone Clerk Yes May 27 2:18pm Advance Directive Response Recorded Date/ Time Name of Medical Power of Telegraph Office Telephone Clerk LANEY AYON May 27, 2021 2:18pm Advance Directives Yes December 10:09am Living Will Yes June 01, 2021 2:04pm Power of Telegraph Office Telephone Clerk Yes June 01 2:04pm Advance Directive Response Recorded Date/ Time Name of Medical Power of Telegraph Office Telephone Clerk LANEY AOYN May 27, 2021 2:18pm Name of Medical Power of Telegraph Office Telephone Clerk Urbano Ayon June 01, 2021 2:04pm Advance Directives Yes December 10:09am Living Will No June 11, 2021 8:42pm Power of Telegraph Office Telephone Clerk No June 11 8:42pm Advance Directive Response Recorded Date/ Time Name of Medical Power of Telegraph Office Telephone Clerk LANEY AYON May 27, 2021 2:18pm Name of Medical Power of Telegraph Office Telephone Clerk Urbano Ayon June 01, 2021 2:04pm Advance Directives Yes December 10:09am Living Will No June 12, 2021 12:34am Power of Telegraph Office Telephone Clerk No June 12 12:34am Advance Directive Response Recorded Date/ Time Advance Directives on File No June 182024 1:37pm Living Will Yes July 08, 2024 2 :11pm Do you have a Healthcare Power of Telegraph Office Telephone Clerk? Yes July 08, 2024 2:11pm Advance Directives Yes December 10:09am Advance Directive Response Recorded Date/ Time Advance Directives on File No June 182024 1:37pm Living Will Yes July 08, 2024 2 :11pm Do you have a Healthcare Power of Telegraph Office Telephone Clerk? Yes July 08, 2024 2:11pm Do you have a Healthcare Power of Telegraph Office Telephone Clerk? Yes August 31, 2024 1:04am Advance Directives Yes December 10:09am Summary Purpose [...] section and content) DATE CREATED AUTHOR 01/08/2022 [facility] DATE CREATED AUTHOR AUTHOR'S ORGANIZ ATION 08/22/2022 [facility] ([place] DATE CREATED AUTHOR AUTHOR'S ORGANIZ ATION 04/30/2024 [facility] DATE CREATED AUTHOR AUTHOR'S ORGANIZ ATION [facility] (unrecognized section and content) Team Status: Active Member Role Status Dates [facility] Primary Care Provider Active Team Status: Inactive Member Role Status Dates [facility] Primary Care Provider Active Start: July 08, 2024 End: July 08, 2024 [facility] Attending Provider Active Start: Em manning 2024 End: July 08, 2024 [facility] Referring Provider Active Start: Em manning 2024 End: July 08, 2024 Team Status: Active Member Role Status Dates [facility] Primary Care Provider Active Start: July 14, 2024 HONEY HERNANDEZ Attending Provider Active Start: July 14, 2024 HONEY HERNANDEZ Referring Provider Active Start: July 14, 2024 Team Status: Inactive Member Role Status Dates [facility] Primary Care Provider Active Start: July 16, 2024 End: July 17, 2024 HONEY HERNANDEZ Attending Provider Active Start: July 16, 2024 End: July 17, 2024 HONEY HERNANDEZ Referring Provider Active Start: July 16, 2024 End: July 17, 2024 Team Status: Active Member Role Status Dates [facility] Primary Care Provider Active Start: August 04, 2024 HONEY HERNANDEZ Attending Provider Active Start: August 04, 2024 HONEY HERNANDEZ Referring Provider Active Start: August 04, 2024 Team Status: Inactive Member Role Status Dates [facility] Primary Care Provider Active Start: August 05, 2024 End: August 05, 2024 [facility] Referring Provider Active Start: Shira davila 2024 End: August 05, 2024 Maria Luisa Potts CHLOROBUTADIENE SCRUBBER OPERATOR, CHLOROBUTADIENE SCRUBBER OPERATOR-C Attending Provider Active Start: August 05, 2024 End: August 05, 2024 Team Status: Active Member Role/Relationship Status Dates [facility] Primary Care Provider Active Team Status: Inactive Member Role/Relationship Status Dates [facility] Primary Care Provider Active Start: July 08, 2024 End: July 08, 2024 [facility] Attending Provider Active Start: Em manning 2024 End: July 08, 2024 [facility] Referring Provider Active Start: Em manning 2024 End: July 08, 2024 Team Status: Inactive Member Role/Relationship Status Dates [facility] Primary Care Provider Active Start: July 16, 2024 End: July 17, 2024 HONEY HERNANDEZ Attending Provider Active Start: July 16, 2024 End: July 17, 2024 HONEY HERNANDEZ Referring Provider Active Start: July 16, 2024 End: July 17, 2024 Team Status: Inactive Member Role/Relationship Status Dates [facility] Primary Care Provider Active Start: August 05, 2024 End: August 05, 2024 [facility] Referring Provider Active Start: Shira davila 2024 End: August 05, 2024 Maria Luisa Potts NP, CHLOROBUTADIENE SCRUBBER OPERATOR-C Attending Provider Active Start: August 05, 2024 End: August 05, 2024 Team Status: Inactive Member Role/Relationship Status Dates [facility] Primary Care Provider Active Start: August 16, 2024 End: August 16, 2024 HONEY HERNANDEZ Attending Provider Active Start: August 16, 2024 End: August 16, 2024 HONEY HERNANDEZ Referring Provider Active Start: August 16, 2024 End: August 16, 2024 Team Status: Active Member Role/Relationship Status Dates [facility] Primary Care Provider Active Start: August 30, 2024 HONEY HERNANDEZ Attending Provider Active Start: August 30, 2024 HONEY HERNANDEZ Referring Provider Active Start: August 30, 2024 Team Status: Active Member Role/Relationship Status Dates [facility] Primary Care Provider Active Start: August 30, 2024 Maria Luisa Potts CHLOROBUTADIENE SCRUBBER OPERATOR, CHLOROBUTADIENE SCRUBBER OPERATOR-C Attending Provider Active Start: August 30, 2024 Maria Luisa Potts CHLOROBUTADIENE SCRUBBER OPERATOR, CHLOROBUTADIENE SCRUBBER OPERATOR-C Referring Provider Active Start: August 30, 2024 Team Status: Active Member Role/Relationship Status Dates [facility] Primary Care Provider Active Start: August 31, 2024 Dr. Michael Berger DO Emergency Provider Active Start: August 31, 2024 Dr. Scout Lebron MD Attending Provider Active Start: August 31, 2024 Team Status: Active Member Role/Relationship Status Dates [facility] Primary Care Provider Active Start: August 31, 2024 Dr. Michael Berger DO Emergency Provider Active Start: August 31, 2024 Dr. Scout Lebron MD Admit Provider Active Star t: August 31, 2024 Dr. Scout Lebron MD Attending Provider Active Start: August 31, 2024 FOR RECORDS PERTAINING TO PATIENTS WHO [...] BE BASED ON THE PRIMARY CLINICAL RECORDS. [facility] [employer] provides no warranty or guarantee of the accuracy or completeness of information in this document.
[2024-08-31] MEDS: 0.9% Saline Lock 10 ML Syringe IV ×3 (03:47→21:50)
[2024-08-31 07:18] LABS: Hematocrit 45.9 % (40-54); Hemoglobin 15.3 g/dL (13.0-16.5); Immature Granulocytes Count 0.030 X10^3/uL (0.0-0.0); Mean Corp Hgb Conc 33.3 g/dL (32-36); Mean Corpuscular Volume 91.8 fL (80-94); Mean Platelet Vol. 9.0 fl (6.2-12.0); NRBC Flagged by Analyzer 0 % (0-5); POSITIVE DIFFERENTIAL YES; Platelet Count 226 K/mm3 (150-450); RBC Distribution Width CV 14.3 % (11.6-14.6); RBC Distribution Width SD 48.5 fl (35.1-43.9); Red Blood Count 5.00 M/mm3 (4.6-6.2); White Blood Count 10.1 K/mm3 (4.4-11.0)
[2024-08-31 07:39] LABS: Anion Gap 14 (5-15); BUN 41 mg/dL (4-19); BUN/Creat Ratio 23.1 RATIO (10-20); Calcium,Total 9.9 mg/dL (7.6-11.0); Carbon Dioxide 23.4 mmol/L (21.0-32.0); Chloride 102 mmol/L (98-108); Estimated Creatinine Clearance 35.15 ml/min (50-250); Glucose 155 mg/dL (70-99); Potassium 4.6 mmol/L (3.3-5.1)
--- NOTE | 2024-08-31 08:32 | PN.HOSP_ITS ---
Reason for Visit Chief Complaint: Shortness of breath Subjective Subjective Breathing okay. Still on oxygen which has been weaned down to 1 L. Objective Data Objective Data Vital Signs: Vital Signs Temp Pulse Resp BP Pulse Ox O2 Del Method O2 Flow Rate 36.3 C L 71 16 149/63 H 92 Nasal Cannula 3 08/31/24 06:40 08/31/24 06:40 08/31/24 06:40 08/31/24 06:40 08/31/24 06:40 08/31/24 06:40 08/31/24 06:40 FiO2 30 08/31/24 05:15 Oxygen Flow Rate (L/min) 3 Oxygen Delivery Method Nasal Cannula Weight: 83.064 kg Body Mass Index (BMI) 27.8 Intake & Output: Intake and Output for Last 24 Hours 08/29/24 08/30/24 08/31/24 23:59 23:59 23:59 Intake Total 0 / 0 Output Total 450 / 450 Balance -450 / -450 Lab / Micro Data 08/31/24 06:05 08/31/24 06:05 Labs: Laboratory Results - last 24 hr 08/31/24 01:09: WBC 10.5, RBC 5.08, Hgb 15.3, Hct 47.2, MCV 92.9, MCH 30.1, MCHC 32.4, RDW Std Deviation 48.5 H, RDW Coeff of Momo 14.3, Plt Count 230, MPV 8.9, Immature Gran % (Auto) 0.600, Neut % (Auto) 57.9, Lymph % (Auto) 28.3, Grainger % (Auto) 9.3, Eos % (Auto) 3.1, Baso % (Auto) 0.8, Absolute Neuts (auto) 6.1, Absolute Lymphs (auto) 2.96, Nucleated RBC % 0, Sodium 141, Potassium 4.5, Chloride 103, Carbon Dioxide 25.3, Anion Gap 13, BUN 41 H, Creatinine 1.92 H, E stim Creat Clear Calc 32.85 L, Est GFR (MDRD) Non-Af 35 L, BUN/Creatinine Ratio 21.3 H, Glucose 156 H, Calcium 9.8, Magnesium 2.1, NT pro BNP II 2407 H 08/31/24 06:05: WBC 10.1, RBC 5.00, Hgb 15.3, Hct 45.9, MCV 91.8, MCH 30.6, MCHC 33.3, RDW Std Deviation 48.5 H, RDW Coeff of Momo 14.3, Plt Count 226, MPV 9.0, Immature Gran % (Auto) 0.300, Neut % (Auto) 93.3 H, Lymph % (Auto) 3.7 L, Grainger % (Auto) 2.2, Eos % (Auto) 0.1, Baso % (Auto) 0.4, Absolute Neuts (auto) 9.4 H, A bsolute Lymphs (auto) 0.37 L, Nucleated RBC % 0, Sodium 140, Potassium 4.6, Chloride 102, Carbon Dioxide 23.4, Anion Gap 14, BUN 41 H, Creatinine 1.79 H, E stim Creat Clear Calc 35.15 L, Est GFR (MDRD) Non-Af 38 L, BUN/Creatinine Ratio 23.1 H, Glucose 155 H, Calcium 9.9 08/31/24 06:42: POC Glucose 174 H Radiography Diagnostic Testing: Radiology Impression Chest X-Ray 08/31/24 01:46 IMPRESSION: Possible mild interstitial edema. Consider follow up imaging. Reading Location: [place] [address] Physical Exam Const alert and no apparent distress HEENT head/scalp atraumatic and moist oral mucous membranes Resp normal respiratory effort and no retractions Resp Narrative: No conversational dyspnea. No respiratory distress. Cardio regular rate, regular rhythm, S1 normal heart sound and S2 normal heart sound GI normal to inspection, nondistended, normoactive bowel sounds, soft to palpation, non-tender and non-distended Extremity normal to inspection, full ROM and no clubbing, cyanosis or edema Neuro Sensorium / Orientation: awake and alert Assessment & Plan Assessment/Plan (1) Acute respiratory failure with hypoxia: PLAN: Secondary to CHF and COPD. Was on BiPAP but has since been weaned down. Patient was middle of having polysomnogram when this happened. This will need to be rescheduled for a later time when the respiratory status is overall improved. (2) Congestive heart failure: QUALIFIERS: Heart failure chronicity: chronic Heart failure type: combined systolic and diastolic Qualified Code(s): I50.42 - Chronic combined systolic (congestive) and diastolic (congestive) heart failure PLAN: Acute HFpEF mild pulmonary vascular congestion on chest x-ray. On IV furosemide 20 mg twice daily. EF of 65% from 2D echocardiogram from March 08, 2019 Continue losartan, carvedilol (3) Stage 3 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: PLAN: Continue methylprednisolone as well as bronchodilators. PLAN: Plan History of ventricular fibrillation: On amiodarone. CKD 3B: Stable. Continue to monitor closely while on furosemide. Diabetes mellitus type 2: On glargine and sliding scale insulin VTE prophylaxis with enoxaparin Discussed with the patient's spouse at bedside. Charges/Coding Visit Charges Inpatient E&M: 06511 Subs Hosp L2
[2024-08-31] MEDS: Cholecalciferol (VIT D3) 25 MCG TABLET (1,000 UNITS) 50 MCG PO (08:55)
[2024-08-31] MEDS: Magnesium Chloride 64 MG Delay Rel.Tablet 128 MG PO (08:56)
[2024-08-31] MEDS: Furosemide 20 MG/2 ML VIAL IV ×2 (08:56→17:02)
[2024-08-31] MEDS: Insulin Glargine-YFGN 100 UNIT/ML Pen SC (09:54)
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
[2024-09-01] VITALS (7 sets, daily range): BP systolic 113–122; BP diastolic 46–58; PULSE 54–60; RESP 16–20; TEMP 36.4–36.6; O2SAT 92–97
[2024-09-01 05:53] LABS: Hematocrit 39.9 % (40-54); Hemoglobin 13.9 g/dL (13.0-16.5); Immature Granulocytes Count 0.150 X10^3/uL (0.0-0.0); Mean Corp Hgb Conc 34.8 g/dL (32-36); Mean Corpuscular Volume 88.3 fL (80-94); Mean Platelet Vol. 9.0 fl (6.2-12.0); NRBC Flagged by Analyzer 0 % (0-5); Platelet Count 223 K/mm3 (150-450); RBC Distribution Width CV 13.9 % (11.6-14.6); RBC Distribution Width SD 45.0 fl (35.1-43.9); Red Blood Count 4.52 M/mm3 (4.6-6.2); White Blood Count 15.8 K/mm3 (4.4-11.0)
[2024-09-01 06:21] LABS: Anion Gap 13 (5-15); BUN 57 mg/dL (4-19); BUN/Creat Ratio 26.7 RATIO (10-20); Calcium,Total 9.3 mg/dL (7.6-11.0); Carbon Dioxide 23.5 mmol/L (21.0-32.0); Chloride 99 mmol/L (98-108); Estimated Creatinine Clearance 29.55 ml/min (50-250); Glucose 230 mg/dL (70-99); Potassium 4.5 mmol/L (3.3-5.1)
--- NOTE | 2024-09-01 08:45 | PCM.PN.HOSP ---
Reason for Visit Chief Complaint: Shortness of breath Subjective Subjective Breathing better. Objective Data Objective Data Vital Signs: Vital Signs Temp Pulse Resp BP Pulse Ox O2 Del Method O2 Flow Rate 36.6 C 57 L 20 H 113/58 L 97 Nasal Cannula 1 09/01/24 03:00 09/01/24 07:21 09/01/24 07:21 09/01/24 03:00 09/01/24 07:21 09/01/24 07:21 09/01/24 07:21 FiO2 30 08/31/24 05:15 Oxygen Flow Rate (L/min) 1 Oxygen Delivery Method Nasal Cannula Weight: 83.1 kg Body Mass Index (BMI) 27.8 Intake & Output: Intake and Output for Last 24 Hours 08/30/24 08/31/24 09/01/24 23:59 23:59 23:59 Intake Total 480 / 480 Output Total 1800 / 2600 1450 / 1450 Balance -1320 / -2120 -1450 / -1450 Lab / Micro Data 09/01/24 05:20 09/01/24 05:20 Labs: Laboratory Results - last 24 hr 08/31/24 12:22: POC Glucose 275 H 08/31/24 16:59: POC Glucose 246 H 08/31/24 21:46: POC Glucose 291 H 09/01/24 05:20: WBC 15.8 H, RBC 4.52 L, Hgb 13.9, Hct 39.9 L, MCV 88.3, MCH 30.8, MCHC 34.8, RDW Std Deviation 45.0 H, RDW Coeff of Momo 13.9, Plt Count 223, MPV 9.0, Immature Gran % (Auto) 0.900, Neut % (Auto) 91.4 H, Lymph % (Auto) 4.1 L, [place] % (Auto) 3.5, Eos % (Auto) 0.0, Baso % (Auto) 0.1, Absolute Neuts (auto) 14.5 H, Absolute Lymphs (auto) 0.65 L, Nucleated RBC % 0, Sodium 135, Potassium 4.5, Chloride 99, Carbon Dioxide 23.5, Anion Gap 13, BUN 57 H, Creatinine 2.13 H, Estim Creat Clear Calc 29.55 L, Est GFR (MDRD) Non-Af 31 L, BUN/Creatinine Ratio 26.7 H, Glucose 230 H, Calcium 9.3 09/01/24 06:34: POC Glucose 234 H Physical Exam Const alert, no apparent distress and average body habitus HEENT head/scalp atraumatic and moist oral mucous membranes Resp normal respiratory effort, no retractions, no use of accessory muscles and clear to auscultation bilaterally Cardio regular rate, regular rhythm, S1 normal heart sound and S2 normal heart sound GI normal to inspection, nondistended, normoactive bowel sounds, soft to palpation, non-tender and non-distended Extremity normal to inspection and full ROM Neuro Sensorium / Orientation: awake and alert Assessment & Plan Assessment/Plan (1) Acute respiratory failure with hypoxia: PLAN: Secondary to CHF and COPD. Was on BiPAP but has since been weaned down. Patient was middle of having polysomnogram when this happened. Discharge. no need for home oxygen. (2) Congestive heart failure: QUALIFIERS: Heart failure chronicity: chronic Heart failure type: combined systolic and diastolic Qualified Code(s): I50.42 - Chronic combined systolic (congestive) and diastolic (congestive) heart failure PLAN: Acute HFpEF mild pulmonary vascular congestion on chest x-ray. On IV furosemide 20 mg twice daily. EF of 65% from 2D echocardiogram from March 08, 2019 Continue losartan, carvedilol. DC with PO furosemide 40/d. (3) Stage 3 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: PLAN: Continue methylprednisolone as well as bronchodilators. DC with prednisone. Follow up with pulmonary as outpt. PLAN: Plan History of ventricular fibrillation: On amiodarone. CKD 3B: Stable. Continue to monitor closely while on furosemide. Diabetes mellitus type 2: On glargine and sliding scale insulin VTE prophylaxis with enoxaparin
[2024-09-01] MEDS: Cholecalciferol (VIT D3) 25 MCG TABLET (1,000 UNITS) 50 MCG PO (09:24)
[2024-09-01] MEDS: Magnesium Chloride 64 MG Delay Rel.Tablet 128 MG PO (09:24)
[2024-09-01] MEDS: Furosemide 20 MG/2 ML VIAL IV (09:27)
[2024-09-01] MEDS: Insulin Glargine-YFGN 100 UNIT/ML Pen SC (09:27)
--- NOTE | 2024-09-01 14:20 | DS.PCM_ITS ---
Providers Date of Admission: 08/31/24 Primary Care Physician: [facility] Reason For Visit: ACUTE ON CHRONIC RESPIRATORY FAILURE, CHF Diagnosis Discharge Diagnosis (1) Acute respiratory failure with hypoxia: Status: Acute Code(s): J96.01 - Acute respiratory failure with hypoxia Plan: Secondary to CHF and COPD. Was on BiPAP but has since been weaned down. Patient was middle of having polysomnogram when this happened. Discharge. no need for home oxygen. (2) Congestive heart failure: Status: Acute Code(s): I50.9 - Heart failure, unspecified Qualifiers: Heart failure type: combined systolic and diastolic Heart failure chronicity: chronic Qualified Code(s): I50.42 - Chronic combined systolic (congestive) and diastolic (congestive) heart failure Plan: Acute HFpEF mild pulmonary vascular congestion on chest x-ray. On IV furosemide 20 mg twice daily. EF of 65% from 2D echocardiogram from March 08, 2019 Continue losartan, carvedilol. DC with PO furosemide 20/d. (3) Stage 3 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: Status: Chronic Code(s): J44.9 - Chronic obstructive pulmonary disease, unspecified Plan: Continue methylprednisolone as well as bronchodilators. DC with prednisone. Follow up with pulmonary as outpt. Plan History of ventricular fibrillation: On amiodarone. CKD 3B: Stable. Continue to monitor closely while on furosemide. Diabetes mellitus type 2: On glargine and sliding scale insulin VTE prophylaxis with enoxaparin Medications at Discharge Home Medications albuterol sulfate 90 mcg/actuation aerosol inhaler 2 puff inhalation Q4H PRN PRN Shortness Of Breath 06/05/16 rosuvastatin 40 mg tablet 40 mg PO QHS cholesterol 06/05/16 nitroglycerin 400 mcg/spray translingual 1 spray sublingual Q3-5M PRN chest pain #12 grams 12/04/18 albuterol sulfate 2.5 mg/3 mL (0.083 %) solution for nebulization 2.5 mg inhalation Q6H PRN PRN Sob &/Or Wheezing 03/16/19 carvedilol 6.25 mg tablet 6.25 mg PO BID hypertension 03/16/19 clopidogrel 75 mg tablet 75 mg PO DAILY antiplatelet 03/16/19 losartan 25 mg tablet 25 mg PO DAILY hypertension 03/16/19 magnesium oxide 420 mg tablet 420 mg PO BID supplement 04/20/19 spacer #1 ea 06/04/19 pantoprazole 40 mg tablet,delayed release 40 mg PO DAILY #60 tabs 06/08/19 cholecalciferol (vitamin D3) 25 mcg (1,000 unit) tablet 2,000 unit PO DAILY supplement 06/10/19 atorvastatin 20 mg tablet cholesterol 05/27/21 cyanocobalamin (vitamin B-12) 1,000 mcg tablet,extended release 1,000 mcg PO DAILY 05/27/21 ezetimibe 10 mg tablet mg cholesterol 05/27/21 fluticasone propionate 50 mcg/actuation nasal spray,suspension intranasal allergy 05/27/21 amiodarone 200 mg tablet 200 mg PO DAILY 08/05/24 insulin glargine-yfgn 100 unit/mL (3 mL) subcutaneous pen 4 unit subcut DAILY 08/31/24 insulin lispro 100 unit/mL subcutaneous pen (Humalog KwikPen (U-100) Insulin) 2 unit subcut .weekly 08/31/24 isosorbide mononitrate 30 mg tablet,extended release 24 hr 30 mg PO DAILY heart 08/31/24 furosemide 20 mg tablet (Lasix) 20 mg PO DAILY #30 tabs 09/01/24 prednisone 20 mg tablet 40 mg (2 x 20 mg) PO DAILY #10 tabs 09/01/24 Hospital Course Operations None Weight / BMI Weight Weight: 83.1 kg Body Mass Index (BMI) 27.8 ABG / Lab / Microbiology Data 09/01/24 05:20 09/01/24 05:20 Laboratory: Laboratory Results - last 24 hr 08/31/24 16:59: POC Glucose 246 H 08/31/24 21:46: POC Glucose 291 H 09/01/24 05:20: WBC 15.8 H, RBC 4.52 L, Hgb 13.9, Hct 39.9 L, MCV 88.3, MCH 30.8, MCHC 34.8, RDW Std Deviation 45.0 H, RDW Coeff of Momo 13.9, Plt Count 223, MPV 9.0, Immature Gran % (Auto) 0.900, Neut % (Auto) 91.4 H, Lymph % (Auto) 4.1 L, [place] % (Auto) 3.5, Eos % (Auto) 0.0, Baso % (Auto) 0.1, Absolute Neuts (auto) 14.5 H, Absolute Lymphs (auto) 0.65 L, Nucleated RBC % 0, Sodium 135, Potassium 4.5, Chloride 99, Carbon Dioxide 23.5, Anion Gap 13, BUN 57 H, Creatinine 2.13 H , Estim Creat Clear Calc 29.55 L, Est GFR (MDRD) Non-Af 31 L, BUN/Creatinine Ratio 26.7 H, Glucose 230 H, Calcium 9.3 09/01/24 06:34: POC Glucose 234 H 09/01/24 11:51: POC Glucose 342 H D/C Instructions Discharge Activity: Return to Normal Activity DC O2, CPAP, BIPAP Needs Home O2 Discharge instructions: No Meaningful Use Info Meaningful Use Meaningful Use Diagnoses (Choose all that apply): CHF CHF KAREN/ARB ordered at discharge?: Yes Documented LVEF (%): 65 Discharge Plan Admission Admit Date/Time: 08/31/24 02:49 Primary Reason for Your Visit: CHF. COPD. Attending Provider: Magno Sheppard Primary Care Provider: [facility],[place] Consulting Providers: Scout Lebron Discharge Orders/Prescriptions Prescriptions: New prednisone 20 mg tablet 40 mg PO DAILY Qty: 10 0RF furosemide [Lasix] 20 mg tablet 20 mg PO DAILY Qty: 30 0RF Continued nitroglycerin 400 mcg/spray spray,non-aerosol 1 spray SUBLINGUAL Q3-5M PRN (Reason: chest pain) Qty: 12 3RF Rx Instructions: until response; do not exceed 3 doses per episode magnesium oxide 420 mg tablet 420 mg PO BID (DME) spacer See Rx Instructions .ROUTE .MEDSUPPLY Qty: 1 0RF Rx Instructions: As directed pantoprazole 40 mg tablet,delayed release (DR/EC) 40 mg PO DAILY Qty: 60 2RF albuterol sulfate 1 INHALER inhaler 2 puff inhalation Q4H PRN PRN (Reason: Shortness Of Breath) rosuvastatin 40 MG tablet 40 mg PO QHS cholecalciferol (vitamin D3) 25 mcg (1,000 unit) tablet 2,000 unit PO DAILY albuterol sulfate 2.5 MG/3 ML solution for nebulization 2.5 mg inhalation Q6H PRN PRN (Reason: Sob &/Or Wheezing) clopidogrel 75 MG tablet 75 mg PO DAILY carvedilol 6.25 MG tablet 6.25 mg PO BID losartan 25 MG tablet 25 mg PO DAILY cyanocobalamin (vitamin B-12) 1,000 mcg Tablet Extended Release 1,000 mcg PO DAILY atorvastatin 20 mg tablet fluticasone propionate 50 mcg/actuation spray,suspension INTRANASAL ezetimibe 10 mg tablet amiodarone 200 mg tablet 200 mg PO DAILY insulin lispro [Humalog KwikPen Insulin] 100 unit/mL Insulin Pen 2 unit subcut .weekly insulin glargine-yfgn 100 unit/mL (3 mL) Insulin Pen 4 unit subcut DAILY isosorbide mononitrate 30 mg tablet extended release 24 hr 30 mg PO DAILY Referrals / Follow Up: [facility] [Provider Group] - 09/15/24 1:30 pm [facility] [Provider Group] - Within 1 Month [facility] [Primary Care Provider] - Within 2 Weeks Disposition Disposition (needs filled in before D/C Order can be placed): Home, Self Care Charges/Coding Visit Charges Inpatient E&M: 09543 Disch Hosp >30min
--- NOTE | 2024-09-01 15:45 | CASEMGMT ---
Patient has order for discharge. Patient does not qualify for home oxygen. RN CM in to discuss needs at discharge. Patient denies needs or help at discharge. Patient had no further questions or concerns.
== END 2024-09-01 16:16 | disposition home or self-care (01) | DRG 189 ==
LOC: ED 02:45 → PCU 03:36
PROVIDERS: Admitting Provider Family Medicine; Emergency Provider Emergency Medicine
DX: J96.01 Acute respiratory failure with hypoxia (principal); I49.01 Ventricular fibrillation; I50.31 Acute diastolic (congestive) heart failure; I13.0 Hypertensive heart and chronic kidney disease with heart failure and stage 1 through stage 4 chronic kidney disease, or unspecified chronic kidney disease; E11.22 Type 2 diabetes mellitus with diabetic chronic kidney disease; J44.9 Chronic obstructive pulmonary disease, unspecified; N18.32 Chronic kidney disease, stage 3b; G47.33 Obstructive sleep apnea (adult) (pediatric); I25.10 Atherosclerotic heart disease of native coronary artery without angina pectoris; I25.2 Old myocardial infarction; Z79.4 Long term (current) use of insulin; E78.5 Hyperlipidemia, unspecified; Z95.1 Presence of aortocoronary bypass graft; Z79.02 Long term (current) use of antithrombotics/antiplatelets; Z79.51 Long term (current) use of inhaled steroids; Z95.810 Presence of automatic (implantable) cardiac defibrillator; Z87.891 Personal history of nicotine dependence; Z79.899 Other long term (current) drug therapy
CPT/HCPCS: 36415; 71045; 80048; 82962; 83735; 83880; 85025; 93005; 94002; 94640; 94762; 99285; A4216; J1938

== ENCOUNTER 2024-09-15 10:00 | Outpatient (RCR) | payer OTHER, SELFPAY ==
[2024-08-06 08:37] VITALS: BMI 28.8
== END 2024-09-16 23:59 ==
LOC: PR 10:00
DX: J44.9 Chronic obstructive pulmonary disease, unspecified (principal)
CPT/HCPCS: 97150; 94626

== ENCOUNTER → 2024-09-20 | Outpatient (CLI) | payer OTHER, SELFPAY ==
[2024-09-02 07:21] VITALS: BMI 28.2
== END | disposition home or self-care (01) ==
LOC: SL 20:24
PROVIDERS: Referring Provider Nurse Practitioner Acute Care; Visit Provider Nurse Practitioner Acute Care
DX: G47.33 Obstructive sleep apnea (adult) (pediatric) (principal)
CPT/HCPCS: 95810

== ENCOUNTER → 2024-09-27 | Outpatient (CLI) | payer OTHER, SELFPAY ==
[2024-07-08 14:39] VITALS: BMI 27.5
[2024-08-06 08:37] VITALS: BMI 28.8
--- OUTSIDE RECORDS SUMMARY | 2024-08-31 05:42 | XMS RPT_ITS | CCD ---
Author Organization [facility] Care Team Providers Care Make Up Editor Name Role Phone Dr. Ghassan Munoz Primary Care Provider [phone] Dr. Ghassan Munoz Referring Provider [phone] MADAY Ceron Attending Provider [phone] Ghassan Munoz Primary Care Provider [phone] Dr. Ghassan Munoz Referring Provider [phone] MADAY Ceron Attending Provider [phone] [place] Primary Care Provider UnavailDr. Brandon Feliciano Emergency Provider Dr. Bryan Gonzalez Admit Provider Dr. Magno Sheppard Attending Provider Dr. Magno Sheppard Other Provider DR JUDITH WEAVER Admitting Unavailable DR JUDITH WEAVER Attending Unavailable DR JUDITH WEAVER Primary Care Unavailable [facility] Primary Care Physician [facility] Primary Care Unavailable ELIEZER PRO MD Attending [...] Ad[facility] [place] [facility] [place] [facility] [place] Referring Provider Unavailable DAVID JONES Attending Provider [phone] DAVID JONES Referring Provider DAVID JONES Attending Provider [phone] DAVID JONES Referring Provider [phone] [place] [facility] [place] Referring Provider Unavailable Katlyn BIODIESEL PLANT SUPERINTENDENT-C, Maria Luisa Attending Provider [facility] Primary Care Unavailable RUDI WALLS Attending Unavailable RUDI WALLS [facility] [place] Referring Unavailable Katlyn BIODIESEL PLANT SUPERINTENDENT, Maria Luisa Attending [facility] [place] [facility] [place] [facility] [place] [facility] Un[facility] Unavailable Katlyn BIODIESEL PLANT SUPERINTENDENT, Maria Luisa Attending Unavailable Katlyn BIODIESEL PLANT SUPERINTENDENT, Maria Luisa Referring [facility] Unavailable RUDI WALLS Attending Unavailable RUDI WALLS Referring [facility]available [facility] Unavailable RUDI WALLS Attending Unavailable TITI, RUDI Referring Unavailable Katlyn [employer]EL PLANT SUPERINTENDENT-C, Maria Luisa Referring Provider Dr. Michael Berger DO Emergency Provider Dr. Scout Lebron MD Attending Provider [phone] Dr. Scout Lebron MD Admit Provider Medications [...] 2019 3:49pm Start: 03-16-2019 End: 08-05-2024 Ipratropium [place] 1 SPRAY spray,non-aerosol Discontinued 2 NMA NASAL [...] June 08, 2019 12:00am polyethylene glycol 3350 [id number] mg powder for oral solution (1 source) [...] 05, 2016 12:00am August 05, 2024 8:17am [facility] benzonatate 100 mg oral capsule (10 sources) [...] 2 mg/ml oral solution (20 sources) Uncompetitive R-muzusn-W-aspartate Receptor Antagonist, Sigma-1 Agonist, alpha-1 Adrenergic Agonist Start: 03-16-2019 End: 06-08-2019 take 1 mL by mouth every six hours Shrfdjbaezmnl-Ol-Psthkowxnvh Discontinued 5 ML PO EVERY 6 HOURS March 16, 2019 3:49pm March 18, 2019 12:45pm Start: 03-16-2019 End: 06-08-2019 take 1 mL by mouth every six hours as needed for cough Bztvgvhbfzrze-Jy-Efgmajxmmhy 473 ML liqu id Discontinued 5 mL [...] 12:00am August 05, 2024 8:21am allergies nystatin [id number] unt/ml oral suspension (10 sources) Polyene Antifungal [...] days 10 mg daily 3 days Tiotropium [place] (20 sources) Anticholinergic Start: 06-10-2019 End: 08-05-2024 Tiotropium [place] 2.5 mcg/actuation mist Discontinued 2 NMA INHALATION TWICE A DAY June 10, 2019 10:59am August 05, 2024 8:20am copd Start: 06-10-2019 End: 08-05-2024 Tiotropium [place] 2.5 mcg/actuation mist Discontinued 2 NMA INHALATION TWICE A DAY June 10, 2019 10:59am August 05, 2024 8:20am Start: 06-10-2019 Tiotropium Bro mide 2.5 mcg/actuation mist Active 2 NMA INHALATION TWICE A DAY June 10, 2019 10:59am Start: 06-10-2019 take 1 puff(s) by in halation twice daily Tiotropium [place] Active 2 PUFF INHALATION TWICE A DAY June 10, 2019 10:59am Start: 03-16-2019 End: 06-10-2019 Tiotropium [place] 4 GM mist Discontinued 2 NMA INHALATION DAILY March 16, 2019 4:14pm June 10, 2019 10:59am copd Start: 03-16-2019 End: 06-10-2019 Tiotropium [place] 4 GM mist Discontinued 2 NMA INHALATION DAILY March 16, 2019 4:14pm June 10, 2019 10:59am Start: 03-16-2019 End: 06-10-2019 take 1 puff(s) by inhalation once daily Tiotropium [place] Discontinued 2 PUFF INHALATION DAILY March 16, 2019 4:14pm June 10, 2019 10:59am Start: 12-24-2018 End: 03-16-2019 take 1 puff(s) by inhalation once daily Tiotropium [place] (Spiriva Respimat) 2.5 mcg/actuation mist Discontinued 2 PUFF INHALATION DAILY December 24, 2018 9:57am March 16, 2019 4:14pm Start: 12-24-2018 End: 03-16-2019 take 2.5 ug by inhalation once daily Tiotropium [place] (Spiriva Respimat) 2.5 mcg/actuation mist Discontinued 2 NMA INHALATION DAILY 4 December 24, 2018 1:00am March 16, 2019 4:14pm Chronic obstructive pulmonary disease, unspecified Start: 12-24-2018 End: 03-16-2019 take 2.5 ug by inhalation once daily Tiotropium [place] (Spiriva Respimat) 2.5 mcg/actuation mist Discontinued 2 [...] 04-23-2024 Chronic Other aftercare (1 source) Other mcfp (current) drug therapy; Translations: [Other mcfp (current) drug therapy] Onset: 04-23-2024 Episodic Other aftercare (1 source) custodial (current) use of aspirin; Translations: [custodial (current) use of aspirin] Onset: 04-23-2024 Episodic Other aftercare (1 source) 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) use of oral hypoglycemic drugs; Translations: [custodial (current) use of oral hypoglycemic drugs] Onset: 04-23-2024 Episodic Other aftercare (1 source) custodial (current) use of insulin; Translations: [custodial (current) use of insulin] Onset: 04-23-2024 Episodic [...] Auto (Unsp spec) [#/Vol] 2.96 10*3/uL 0.83-4.51 [facility] Absolute neutrophil countOrd ered By: Michael Berger on 08-31-2024 Neutrophils (Bld) [#/Vol] 6.1 10*3/uL 2.0-7.7 [facility] Anion gap in Serum or Plasma Ordered By: Michael Berger on 08-31-2024 Anion gap [Moles/Vol] 13 mmol/L 07-01 [facility] Automated lymphocyte count a s percentage of total leukocytesOrdered By: Michael Berger on 08-31-2024 Lymphocytes/100 WBC Auto (Unsp spec) 28.3 % 19-41 [facility] BUN/creatinine ratioOrdered By: Michael Berger on 08-31-2024 Urea nitrogen/Creatinine [Mass ratio] 21.3 mg/mg High 10-20 [facility] Basophil percentageOrdered B y: Michael Berger on 08-31-2024 Basophils/100 WBC (Bld) 0.8 % 0-1 [facility] Carbon dioxide, total [Moles /volume] in Central venous bloodOrdered By: Michael Berger on 08-31-2024 CO2 [Moles/Vol] 25.3 mmol/L 21.0-32.0 [facility] Chloride assayOrdered By: Shira Berger on 08-31-2024 Chloride [Moles/Vol] 103 mmol/L 98-108 [facility] Eosinophil percentageOrdered By: Michael Berger on 08-31-2024 Eosinophils/100 WBC (Bld) 3.1 % 0-5 [facility] Erythrocyte distribution wid th ratioOrdered By: Michael Berger on 08-31-2024 Erythrocyte distribution width (RBC) [Ratio] 14.3 % 11.6-14.6 [facility] Erythrocyte distribution wid th standard deviationOrdered By: Michael Berger on 08-31-2024 Erythrocyte distribution width (RBC) [Ratio] 48.5 fl High 35.1-43.9 [facility] Glomerular filtration rate ( GFR) estimation/1.73 sq m using serum, plasma, or whole bOrdered By: Michael Berger on 08-31-2024 GFR/1.73 sq M.predicted among non-blacks MDRD (S/P/Bld) [Vol rate/Area] 35 mL/min/{1.73_m2} Low >60 [facility] Comment on above: mL/min/1.73m2 CKD-EP I Creatinine Equation (2020) Hematocrit Auto (Bld) [Volum e fraction]Ordered By: Michael Berger on 08-31-2024 Hematocrit (Bld) [Volume fraction] 47.2 % 40-54 [facility] Hemoglobin measurementOrdere d By: Michael Berger on 08-31-2024 Hemoglobin (Bld) [Mass/Vol] 15.3 g/dL 13.0-16.5 [facility] Immature granulocytes/100 WB C Auto (Bld)Ordered By: Michael Berger on 08-31-2024 Immature granulocytes/100 WBC (Bld) 0.600 % 0.0-0.9 [facility] Comment on above: IG% - Immature Granu locytes (promyelocytes, myelocytes and metamyelocytes) > 1% indicates that a LEFT SHIFT is Present. MCV (mean corpuscular volume ) determinationOrdered By: Michael Berger on 08-31-2024 MCV (RBC) [Entitic vol] 92.9 fL 80-94 [facility] Magnesium measurement (mass/ volume)Ordered By: Michael Berger on 08-31-2024 Magnesium (Unsp spec) [Mass/Vol] 2.1 mg/dL 1.5-2.2 [facility] Mean corpuscular hemoglobin (MCH) determinationOrdered By: Michael Berger on 08-31-2024 MCH (RBC) [Entitic mass] 30.1 pg 27.0-32.0 [facility] Mean corpuscular hemoglobin concentration (MCHC) determinationOrdered By: Michael Berger on 08-31-2024 MCHC (RBC) [Mass/Vol] 32.4 g/dL 32-36 [facility] Mean platelet volume determi nationOrdered By: Michael Berger on 08-31-2024 Platelet mean volume (Bld) [Entitic vol] 8.9 fL 6.2-12.0 [facility] Monocyte percentageOrdered B y: Michael Berger on 08-31-2024 Monocytes/100 WBC (Bld) 9.3 % 0-10 [facility] Natriuretic peptide.B prohor jesus N-Terminal [Mass/volume] in Serum or PlasmaOrdered By: Michael Berger on 08-31-2024 Natriuretic peptide.B prohormone N-Terminal [Mass/Vol] 2407 pg/mL High <1800 [facility] Comment on above: Heart Failure Unlike ly: < 300 pg/mLHeart Failure Likely< 50 Years: > 450 pg/mL50-75 Years: > 900 pg/mL>75 Years: > 1800 pg/mL Neutrophil percentageOrdered By: Michael Berger on 08-31-2024 Neutrophils/100 WBC (Bld) 57.9 % 47-70 [facility] Nucleated red blood cell per centageOrdered By: Michael Berger on 07-15-2025 Nucleated RBC/100 WBC (Bld) [Ratio] 0 % 0-5 [facility] Platelet countOrdered By: Shira Berger on 08-31-2024 Platelets (Bld) [#/Vol] 230 10*3/uL 150-450 [facility] Potassium measurement (mass/ volume)Ordered By: Michael Berger on 08-31-2024 Potassium (Unsp spec) [Mass/Vol] 4.5 mmol/L 3.3-5.1 [facility] RBC Auto (Bld) [#/Vol]Ordere d By: Michael Berger on 08-31-2024 RBC (Bld) [#/Vol] 5.08 10*6/uL 4.6-6.2 [facility] Serum creatinine measurement (mass/volume)Ordered By: Michael Berger on 08-31-2024 Creatinine [Mass/Vol] 1.92 mg/dL High 0.70-1.20 [facility] Serum glucose measurement (m ass/volume)Ordered By: Michael Berger on 08-31-2024 Glucose [Mass/Vol] 156 mg/dL High 70-99 [facility] Serum or plasma calcium gilda urement (mass/volume)Ordered By: Michael Berger on 08-31-2024 Calcium [Mass/Vol] 9.8 mg/dL 7.6-11.0 [facility] Serum or plasma urea nitroge n measurement (mass/volume)Ordered By: Michael Berger on 08-31-2024 Urea nitrogen [Mass/Vol] 41 mg/dL High 4-19 [facility] Sodium levelOrdered By: Connor Berger on 08-31-2024 Sodium [Moles/Vol] 141 mmol/L 133-145 [facility] White blood cell (WBC) count Ordered By: Michael Berger on 08-31-2024 WBC (Bld) [#/Vol] 10.5 10*3/uL 4.4-11.0 [facility] Pulmonary Visit Reporton Pulmonary Visit Report [facility] of [address] [place], [place] [address] OFFICE VISIT Date of Service: 08/05/24 MR#: [id number] Acct: [id number] Name: BRYN AYON Rep #: [id number] : 1945 Provider: TACO Potts Age/Sex: 78/M Location: [facility].PMW Status: Signed Assessment and Plan Assessment and [...] Additional Comments: This note was generated with [employer]ation software. It may contain incorrect words, spelling, [...] nodule. He has been following with the [facility] system regarding the lung nodule. He was [...] Pressure Locati (more content not included)... Normal [facility] MA - History AND Physicalon 07-08-2024 MA - History & Physical [facility] Pulmonary Rehab Reports [address] [place] [address] MA - History Physical MR#: [id number] Acct: [id number] Name: BRYN AYON Rep #: [id number] : 1945 78 From: Gerardo Perkins BS, RVT PCP[facility] History of Present Illness General Arrival date:: 07/08/24 Arrival time:: 13:30 Date of Referral:: 06/29/24 Date of Evaluation: 07/08/24 Referring Physician: [place] Primary Diagnosis: COPD History of Present Pulmonary [...] Do you have a Healthcare Power of Rn Examiner?: Yes Living Will: Yes Advance Directives Information [...] of c (more content not included)... Normal [facility] MA - Individual Treatment Pl anon 07-08-2024 MA - Individual Treatment Plan [facility] Pulmonary Rehab Reports [address] [place] [address] MA - Individual Treatment Plan MR#: [id number] Acct: [id number] Name: BRYN AYON Rep #: [id number] : 1945 78 From: Gerardo Perkins BS, RVT PCP: [facility] General Information2 General Information Admitting Diagnosis: COPD PFT FEV1:: 56 FVC:: 63 FEV1/FVC%:: 88 Personal Learning Style/Barriers Personal Learning Style:: Audio/Visual Barriers to Learning: None Education/Goals MA Patient Goals: Increase muscle strength: Initial Assessment, [...] Exercise Modalities: Treadmill, Rower, Schwinn Airdyne AD-7, ConjectaFit Stepper, EyesBot Pro-II Ergometer and EyesBot Lateral [place] Intensity: 60-80% of age predicted maximum heart [...] derpression o (more content not included)... Normal [facility] CHEST 2 VIEWSon 04-23-2024 CHEST 2 VIEWS [place] [address] Patient: BRYN AYON Phone#: : 1945 Age: 78 Gender: M Pt. Type: ER Account: [id number] Location: [facility] Ordering: FELIZ CAMPA Exam Date: 04/23/2024/11:51 Family Phys: Charge Code: [id number] Physician: [place] Order #: [id number] Dose#: PROCEDURE: X-RAY CHEST 2 VIEWS COMPARISON: [facility], XR, CHEST 1 VIEW, 01/08/2024, 17:23. [facility], XR, CHEST 1 VIEW, 02/10/2024, 13:49. [...] Garcia MD on 04/23/2024 at 12:14 Normal [facility] ED MED ADMINISTRATION DETAIL on 04-23-2024 ED MED ADMINISTRATION DETAIL Public [facility] Aides Teacher Medication Administration Record [address] [address] [id number] 04/23/2024 Patient: BRYN AYON Sex: Male : 1945 Age: 78y MEASUREMENTS: Wt: 80.7 kg, Ht/Hector: 68.0 in, BMI: 27.06 ALLERGIES: No known drug allergies Medication Ordered Medication Administration Date/Time 1 of 1 Normal [facility] ED NURSES CLINICAL NOTEon ED NURSES CLINICAL NOTE Nurse Narrative Nurse Clinical Narrative [address] [address] [id number] 04/23/2024 Patient: BRYN AYON Sex: Male : 1945 Age: 78y Primary Insurance: MEDICARE OUTPATIENT Policy Number: [id number] Subscriber: Other Secondary Insurance: [employer] OUTPATIENT Policy Number: [id number] Subscriber: Other Disposition: Discharge Disposition Decision Time: [...] R.N. Implantation (more content not included)... Normal [facility] ED ORDER SHEET (CPOE ONLY)on 04-23-2024 ED ORDER SHEET (CPOE ONLY) Order Sheet Order Sheet [address] [address] [id number] 04/23/2024 Patient: BRYN AYON Sex: Male : [...] (04/23/2024 12:45 EST)] 1 of 1 Normal [facility] ED PHYSICIAN CLINICAL REPORT on 04-23-2024 ED PHYSICIAN CLINICAL REPORT Narrative Physician Clinical Narrative [address] [address] [id number] 04/23/2024 Patient: BRYN AYON Sex: Male : 1945 Age: 78y Primary Insurance: MEDICARE OUTPATIENT Policy Number: [id number] Subscriber: Other Secondary Insurance: [employer] OUTPATIENT Policy Number: [id number] Subscriber: Other Disposition: Discharge Disposition Decision Time: [...] Date: 04/23/2024 12:14:00 EST MsgRcvd: 04/23/2024 12:18 [place] [address] 3 of 5 Narrative Patient: BRYN AYON Phone#: : 1945 Age: 78 Gender: M Pt. Type: ER Account: [id number] Location: [facility] Ordering: FELIZ CAMPA Exam Date: 04/23/2024/11:51 Family Phys: Charge Code: 787128 Physician: [place] Order #: [id number] Dose#: PROCEDURE: X-RAY CHEST 2 VIEWS COMPARISON: [facility], XR, CHEST 1 VIEW, 01/08/2024, 17:23. [facility], XR, CHEST 1 VIEW, 02/10/2024, 13:49. INDICATIONS: Cough. FINDINGS: LUNGS: Normal. No significant pulmonary parenchymal abnormalities. VASCULATURE: Normal. Unremarkable pulmonary vasculature. CARDIAC: Left chest wall cardiac device with single lead. Aortic valve stent present. MEDIASTINUM: Mediastinal surgical clips present. Aortic arch calcifications. PLEURA: Normal. No effusion or pleural thickening. BONES: Degenerative changes o (more content not included)... Normal [facility] ED SUPER BILLon 04-23-2024 ED SUPER BILL [address] [place] [address] [id number] 04/23/2024 Patient: BRYN AYON Sex: Male : 1945 Age: 78y Item Professional Category Description Facility Code Code Quantity Fee Total Nurse/E/M EMERGENCY 390593 1 $0.00 $0.00 DEPARTMENT VISIT MODERATE SEVERITY (76397-59) Grand Total $0.00 Providers Feliz Campa D.O. Chief Complaint WHEEZING. Principal Diagnosis COPD. ICD-10 Codes 1 of 2 [facility] J44.9: Chronic obstructive pulmonary disease, unspecified 2 of 2 [facility] ED VISIT SUMMARYon ED VISIT SUMMARY Visit Overview Visit Overview [address] [place] [address] [id number] 04/23/2024 Patient: BRYN AYON Sex: Male : [...] CLINICAL IMPRESSION COPD 4 of 4 Normal [facility] ED VITALS FLOW SHEETon 04-23 ED VITALS FLOW SHEET Vitals Vital Sign Flow Sheet [address] [address] [id number] 04/23/2024 Patient: BRYN AYON Sex: Male : 1945 Age: 78y Measurements Wt: 80.7 kg, Ht/Hector: 68.0 in, BMI: 27.06 Measured Time BP MAP HR RR O2Sat ETCO2 Temp Pain GCS RTS 12:45 04/23/2024 104/54 71 89 18 97% 97.6 F 0 11:49 04/23/2024 147/63 91 60 18 92% 97.6 F 0 1 of 1 Normal [facility] CBC + DIFFon 02-10-2024 Baso # 0.03 x10EE3/UL Normal 0.00 - 0.10 [facility] Comment on above: Performed By: #### 2 97921 #### [facility],[address] [place] [address]489 Basophils/100 WBC (Bld) 0.4 % Normal 0.0 - 2.0 [facility] Comment on above: Performed By: #### 2 24904 #### [facility],[address] [place] [address]593 CBC + DIFF Normal [facility] Comment on above: Result Comment: CBC- COMPLETE BLOOD COUNT Performed By: #### 2 69873 #### [facility],[address] [place] [address] 18968 EO # 0.11 x10EE3/UL Normal 0.00 - 0.50 [facility] Comment on above: Performed By: #### 2 30289 #### [facility],[address] [place] [address]782 Eosinophils/100 WBC (Bld) 1.4 % Normal 0.0 - 7.0 [facility] Comment on above: Performed By: #### 2 13341 #### [facility],[address] [place] [address] Erythrocyte distribution width (RBC) [Ratio] 14.2 % Normal 12.0 - 15.6 [facility] Comment on above: Performed By: #### 2 38147 #### [facility],[address] [place] [address]874 Hematocrit (Bld) [Volume fraction] 47.9 % Normal 40.0 - 52.0 [facility] Comment on above: Performed By: #### 2 41124 #### [facility],[address] [place] [address] Hemoglobin (Bld) [Mass/Vol] 16.2 g/dL Normal 13.0 - 17.5 [facility] Comment on above: Performed By: #### 2 22830 #### [facility],[address] [place] [address] 33313 Lymph # 1.38 x10EE3/UL Normal 0.80 - 2.80 [facility] Comment on above: Performed By: #### 2 97574 #### [facility],[address] [place] [address] Lymphocytes/100 WBC (Bld) 16.9 % Low 20.0 - 45.0 [facility] Comment on above: Performed By: #### 2 39595 #### [facility],[address] [place] [address] MANUAL DIFF N/A Normal [facility] Comment on above: Performed By: #### 2 94365 #### [facility],[address] [place] [address] MCH (RBC) [Entitic mass] 31 pg Normal 27 - 33 [facility] Comment on above: Performed By: #### 2 66812 #### [facility],[address] [place] [address] MCHC 34 X10 3 Normal 32 - 36 [facility] Comment on above: Performed By: #### 2 18116 #### [facility],[address] [place] [address] MCV (RBC) [Entitic vol] 92 fL Normal 81 - 98 [facility] Comment on above: Performed By: #### 2 05382 #### [facility],[address] [place] [address] Donley # 0.73 x10EE3/UL Normal 0.20 - 1.00 [facility] Comment on above: Performed By: #### 2 44900 #### [facility],[address] [place] [address] MONOS % 9.0 % Normal 0.0 - 10.0 [facility] Comment on above: Performed By: #### 2 28023 #### [facility],[address] [place], [place] [id number] Morphology Alvaro (Bld) [Interp] REVIEWED Normal [facility] Comment on above: Performed By: #### 2 10076 #### [facility],[address] [place] [address] Neut # 5.90 x10EE3/UL Normal 1.50 - 7.10 [facility] Comment on above: Performed By: #### 2 57544 #### [facility],[address] [place] [address] Neutrophils/100 WBC (Bld) 72.3 % Normal 46.0 - 76.0 [facility] Comment on above: Performed By: #### 2 30520 #### [facility],[address] [place] [address] PLATELET 260 x10EE3/UL Normal 150 - 450 [facility] Comment on above: Performed By: #### 2 25792 #### [facility],[address] [place] [address] 96692 Platelet mean volume (Bld) [Entitic vol] 6.7 fL Normal 6.4 - 10.5 [facility] Comment on above: Result Comment: AUTO MATED DIFFERENTIAL Performed By: #### 2 13521 #### [facility],[address] [place] [address] 35441 RBC 5.24 x 10EE6/UL Normal 4.50 - 6.00 [facility] Comment on above: Performed By: #### 2 16978 #### [facility],[address] [place] [address]67 WBC 8.2 x 10EE3/UL Normal 4.5 - 10.8 [facility] Comment on above: Performed By: #### 2 85399 #### [facility],[address] [place] [address] CHEST 1 VIEWon 02-10-2024 CHEST 1 VIEW [place] [address] Patient: BRYN AYON Phone#: : 1945 Age: 78 Gender: M Pt. Type: ER Account: [id number] Location: [facility] Ordering: FELIZ CAMPA Exam Date: 02/10/2024/13:49 Family Phys: Charge Code: 767226 Physician: [place] Order #: [id number] Dose#: PROCEDURE: X-RAY CHEST 1 VIEW COMPARISON: [facility], CHEST 1 VIEW, 01/08/2024, 17:23. INDICATIONS: Diaphoresis. [...] Lujan MD on 02/10/2024 at 14:20 Normal [facility] CMP with eGFRon 02-10-2024 AGE 78 years Normal [facility] Comment on above: Performed By: #### 2 21194 ####[facility],[address] [place] [address] Albumin [Mass/Vol] 3.9 g/dL Normal 3.4 - 5.0 [facility] Comment on above: Performed By: #### 2 78239 ####[facility],[address] [place] [address] Albumin/Globulin [Mass ratio] 1.1 {ratio} Normal 0.9 - 1.6 [facility] Comment on above: Performed By: #### 2 25891 ####[facility],[address] [place] [address] 05186 ALK PHOS 113 U/L Normal 46 - 116 [facility] Comment on above: Performed By: #### 2 75558 ####[facility],[address] [place] [address]116 ALT [Catalytic activity/Vol] 34 U/L Normal 16 - 63 [facility] Comment on above: Performed By: #### 2 70205 ####[facility],[address] [place] [address] 29317 Anion gap [Moles/Vol] 13 mmol/L Normal 10 - 20 [facility] Comment on above: Performed By: #### 2 90928 ####[facility],[address] [place] [address] 39253 AST [Catalytic activity/Vol] 29 U/L Normal 15 - 37 [facility] Comment on above: Performed By: #### 2 54156 ####[facility],[address] [place] [address] 71350 B/C RATIO 12 ratio Normal 0 - 30 [facility] Comment on above: Performed By: #### 2 99775 ####[facility],[address] [place] [address] 09887 Bilirubin [Mass/Vol] 1.3 mg/dL High 0.2 - 1.0 [facility] Comment on above: Performed By: #### 2 03135 ####[facility],[address] [place] [address] 16721 Calcium [Mass/Vol] 9.5 mg/dL Normal 8.5 - 10.1 [facility] Comment on above: Performed By: #### 2 62670 ####[facility],[address] [place] [address] 02887 Chloride [Moles/Vol] 101 mmol/L Normal 98 - 107 [facility] Comment on above: Performed By: #### 2 74700 ####[facility],[address] [place] [address] 34940 CMP with eGFR Normal [facility] Comment on above: Result Comment: COMP REHENSIVE METABOLIC PANEL Performed By: #### 2 50709 ####[facility],[address] [place] [address] 45916 CO2 [Moles/Vol] 31.4 mmol/L Normal 21.0 - 32.0 [facility] Comment on above: Performed By: #### 2 21161 ####[facility],[address] [place] [address] 84173 Creatinine [Mass/Vol] 2.49 mg/dL High 0.70 - 1.30 [facility] Comment on above: Performed By: #### 2 70511 ####[facility],[address] [place] [address] 66920 eGFR 25 ML/MINUTE Low 60 - 999 [facility] Comment on above: Performed By: #### 2 47097 ####[facility],[address] [place] [address] 75831 eGFR(AA) 30 ML/MINUTE Low 60 - 999 [facility] Comment on above: Result Comment: ACCO RDING TO THE NATIONAL KIDNEY DISEASE EDUCATION PROGRAM(NKDE), A NORMAL eGFR IS A VALUE GREATER THAN OR EQUAL TO 60 ML/MIN/1.73 SQ METERS. CHRONIC KIDNEY DISEASE: <60mL/MIN/1.73 SQ METERS KIDNEY FAILURE: <15mL/MIN/1.73 SQ METERS THIS TEST SHOULD ONLY BE USED FOR PATIENTS 18 YEARS OF AGE AND OLDER. Performed By: #### 2 80497 ####[facility],[address] [place] [address] 87256 Globulin (S) [Mass/Vol] 3.5 g/dL Normal 1.5 - 3.8 [facility] Comment on above: Performed By: #### 2 94803 ####[facility],[address] [place] [address] 55336 Glucose [Mass/Vol] 166 mg/dL High 74 - 106 [facility] Comment on above: Performed By: #### 2 96391 ####[facility],[address] [place] [address] 35759 Potassium [Moles/Vol] 5.0 mmol/L Normal 3.5 - 5.1 [facility] Comment on above: Performed By: #### 2 38449 ####[facility],[address] [place] [address] 48577 Protein [Mass/Vol] 7.4 g/dL Normal 6.4 - 8.2 [facility] Comment on above: Performed By: #### 2 48064 ####[facility],[address] [place] [address] Sodium [Moles/Vol] 140 mmol/L Normal 136 - 145 [facility] Comment on above: Performed By: #### 2 53912 ####[facility],[address] [place] [address] Urea nitrogen [Mass/Vol] 29 mg/dL High 7 - 18 [facility] Comment on above: Performed By: #### 2 48433 ####[facility],[address] [place], [place] [address] CORONAVIRUS (SARS) ANTIGEN T ESTon 02-10-2024 EXTERNAL QC DONE? YES Normal [facility] Comment on above: Performed By: #### 2 73509 #### [facility],[address] [place] [address] INTERNAL CONTROL PASS Normal [facility] Comment on above: Performed By: #### 2 66993 #### [facility],[address] [place] [address] SARS ANTIGEN Negative Normal NORMAL: NEGATIVE [facility] Comment on above: Performed By: #### 2 41247 #### [facility],[address] [place] [address] SEND TO ? NO Normal [facility] Comment on above: Result Comment: SARS -CoV-2 THIS TEST IS BEING USED UNDER THE FDA EUA PROCEDURE. THIS ASSAY HAS BEEN VALIDATED AT [facility] FOR USE WITH NASAL AND NASOPHARYNGEAL SWAB [...] PUBLIC HEALTH AUTHORITIES. Performed By: #### 2 75397 #### [facility],[address] [place] [address] ED MED ADMINISTRATION DETAIL on 02-10-2024 ED MED ADMINISTRATION DETAIL Public [employer] Aides Teacher Medication Administration Record [address] [address] [id number] 02/10/2024 Patient: BRYN AYON Sex: Male : 1945 Age: 78y MEASUREMENTS: Wt: 89.4 kg, Ht/Hector: 68.0 in, BMI: 29.95 ALLERGIES: No known drug allergies Medication Ordered Medication Administration Date/Time 1 of 1 Normal [facility] ED NURSES CLINICAL NOTEon ED NURSES CLINICAL NOTE Nurse Narrative Nurse Clinical Narrative [address] [address] [phone] 02/10/2024 Patient: BRYN AYON Sex: Male : 1945 Age: 78y Disposition: Discharge to Home Disposition Decision Time: 16:34 02/10/2024 Departure Time: 16:52 02/10/2024 TRIAGE Triage time: 13:26 02/10/2024. Acuity: LEVEL 2. Chief Complaint: DIFFICULTY WALKING (dry mouth and broke out in a sweat). Onset. (15 minutes [employer]). SEPSIS SCREEN: NEGATIVE. SIRS criteria negative. No [...] day. -- 13:43 02/10/24 MAYO Anaya R.N. 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 Pt denies SOB or CP. Pt does [...] left a (more content not included)... Normal [facility] ED ORDER SHEET (CPOE ONLY)on 02-10-2024 ED ORDER SHEET (CPOE ONLY) Order Sheet Order Sheet [facility] [address] [place] [address] [place] [address] [id number] 02/10/2024 Patient: BRYN AYON Sex: Male : [...] 02/10/2024 Rhonda Sullivan Lemasters, D.O. R.N. R.NGuillaume Supervisor [employer] 13:49 02/10/2024 13:51 02/10/2024 13:51 02/10/2024 Rhonda Sullivan Lemasters, D.O. R.N. R.NGuillaume 2 of 3 Order Sheet Vital signs every 15 13:49 02/10/2024 13:51 02/10/2024 13:51 02/10/2024 minutes Rhonda Sullivan Lemasters, D.O. R.N. R.NGuillaume IV [employer]ine [employer] 13:49 02/10/2024 13:51 02/10/2024 13:51 02/10/2024 Rhonda Sullivan Lemasters, D.O. R.N. R.NGuillaume [Electronically signed by Feliz Campa D.O. (02/10/2024 16:40 EST)] 3 of 3 Normal [facility] ED PHYSICIAN CLINICAL REPORT on 02-10-2024 ED PHYSICIAN CLINICAL REPORT Narrative Physician Clinical Narrative [address] [address] [id number] 02/10/2024 Patient: BRYN AYON Sex: Male : [...] Narrative 02/10/2024 (more content not included)... Normal [facility] ED SUPER BILLon 02-10-2024 ED SUPER BILL [address] [address] [id number] 02/10/2024 Patient: BRYN AYON Sex: Male : 1945 Age: 78y Item Professional Category Description Facility Code Code Quantity Fee Total Nurse/E/M EMERGENCY 050830 1 $0.00 $0.00 DEPARTMENT VISIT MODERATE SEVERITY (81316-72) Grand Total $0.00 Providers Feliz Campa D.O. Chief Complaint Dry mouth and diaphoresis. Principal Diagnosis Weakness. ICD-10 Codes 1 of 2 [facility] R53.1: Weakness 2 of 2 Normal [facility] ED VISIT SUMMARYon ED VISIT SUMMARY Visit Overview Visit Overview [address] [address] [id number] 02/10/2024 Patient: BRYN AYON Sex: Male : 1945 Age: 78y 02/10/2024 04:57 PM EST ED Arrival:13:28 02/10/2024 EST Status: Recent Travel:no Language:eng Adv Directive: Isolation Status: Ethnicity:N Fall Risk:risk Infectious Disease Exposure:no Measurements:5'8 / 172.7 Self-Harm Status:risk Sepsis Screen:negative cm 197.0 lb / 89.4 kg Chief Complaint:DIFFICULTY WALKING, (15 minutes [employer]OR), and (dry mouth and broke out in [...] 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 Pt denies SOB or CP. Pt does [...] CLINICAL IMPRESSION WEAKNESS 4 of 4 Normal [facility] ED VITALS FLOW SHEETon 02-09 ED VITALS FLOW SHEET Vitals Vital Sign Flow Sheet [address] [address] [id number] 02/10/2024 Patient: BRYN AYON Sex: Male : [...] 97.7 F 7 2 of 2 Normal [facility] INFLUENZA VIRUS RAPID A/Bon 02-10-2024 INFLUENZA [...] TO THREE DAYS. RESULT CRITICAL? NO Normal [facility] Comment on above: Performed By: #### 2 58893 ####[facility],[address] [place] [address] TROPONINon 02-10-2024 HS TROPONIN 32.6 pg/mL Normal 0.0 - 76.2 [facility] Comment on above: Performed By: #### 2 42833 #### [facility],[address] [place] [address]235 HS TROPONIN 41.3 pg/mL Normal 0.0 - 76.2 [facility] Comment on above: Performed By: #### 2 98994 #### [facility],[address] [place], [place] [id number] CV VENOUS LEG RTon CV VENOUS LEG RT [place] [address] Patient: BRYN AYON Phone#: : 1945 Age: 78 Gender: M Pt. Type: Out Account: [id number] Location: 010 Ordering: RITU OLIVA Exam Date: 01/09/2024/8:56 Family Phys: Charge Code: [id number] Physician: [place] Order #: [id number] Dose#: PROCEDURE: VENOUS DOPPLER RT LEG COMPARISON: None. INDICATIONS: R/O DVT TECHNIQUE: Color duplex Doppler ultrasound evaluation analysis was performed in the usual manner. DIRECTOR OF REAL ESTATE: HEATHER BACK RVT [facility] RISK FACTORS FOR VENOUS DISEASE: Other [...] PERONEAL V + GSV GASTROC SOLEAL V DIRECTOR OF REAL ESTATE'S NOTES: FINDINGS: THROMBI: None visible. Continued Report - Page 2 of 2 Patient: BRYN AYON Phone#: : 1945 Age: 78 Gender: M Pt. Type: Out Account: [id number] Location: 010 Ordering: RITU OLIVA Exam Date: 01/09/2024/8:56 Family Phys: Charge Code: [id number] Physician: [place] Order #: [id number] Dose#: COMPRESSIBILITY: Normal. OTHER: Negative. CONCLUSION: 1. No evidence of deep vein thrombus in the right lower extremity. Dictated by: Teresa Garcia MD on 01/09/2024 at 8:54 Approved by: Teresa Garcia MD on 01/09/2024 at 8:56 Normal [facility] ED MED ADMINISTRATION DETAIL on 01-09-2024 ED MED ADMINISTRATION DETAIL Public [employer]ides Teacher Medication Administration Record [address] [address] [id number] 01/08/2024 Patient: BRYN AYON Sex: Male : [...] 20:01 David Olvera R.N. 1 of 2 [employer] Medication Ordered Medication Administration Date/Time doxycycline IVPB [...] Lolis Yi R.N. 2 of 2 Normal [facility] ED NURSES CLINICAL NOTEon ED NURSES CLINICAL NOTE Nurse Narrative Nurse Clinical Narrative [address] [place] [address] [phone] 01/08/2024 Patient: BRYN AYON Sex: Male : [...] a day. -- 17:01/08/24 MAYO Cartagena R.N. ezetimibe 10 mg tablet: [...] / PSYCH: (more content not included)... Normal [facility] ED ORDER SHEET (CPOE ONLY)on 01-09-2024 ED ORDER SHEET (CPOE ONLY) Order Sheet Order Sheet [place] [id number] [facility] [place] [address] [id number] 01/08/2024 Patient: BRYN AYON Sex: Male : [...] (01/08/2024 23:54 EST)] 4 of 4 Normal [facility] ED PHYSICIAN CLINICAL REPORT on 01-09-2024 ED PHYSICIAN CLINICAL REPORT Narrative Physician Clinical Narrative [facility] [address] [place] [address] [phone] 01/08/2024 Patient: BRYN AYON Sex: Male : [...] - 17. (more content not included)... Normal [facility] [place] [address] [place] [address] [id number] 01/08/2024 Patient: BRYN AYON Sex: Male : 1945 Age: 78y Facility Professional Category Item Description Code Code Quantity Fee Total Nurse/E/M EMERGENCY 574225 1 $0.00 $0.00 DEPT VISIT HIGH SEVERITYFUNCJ (06578-16) Nurse/IV/IM/Infusion s Drip/IVPB initial 057671 1 $0.00 $0.00 (21551) Nurse/IV/IM/Infusion s Drip/IVPB seq 329558 1 $0.00 $0.00 (43437) Nurse/IV/IM/Infusion s IVP additional 748897 1 $0.00 $0.00 push (31406) Nurse/Procedures Respiratory 196686 1 $0.00 $0.00 therapy - inhalation (47551) Grand $0.00 Total Providers Krys Barr M.D. Eliezer Constantino D.O. 1 of 2 [facility] Chief Complaint DYSPNEA. Principal Diagnoses Acute dyspnea. Moderate congestive heart failure. Pneumonia. Cough hypoxia. Probable hypoxia. Probable acute cough. ICD-10 Codes R06.09: Other forms of dyspnea J18.9: Pneumonia, unspecified organism I50.9: Heart failure, unspecified 2 of 2 Normal [facility] ED VISIT SUMMARYon ED VISIT SUMMARY Visit Overview Visit Overview [facility] [address] [place] [address] [id number] 01/08/2024 Patient: BRYN AYON Sex: Male : [...] COUGH PROBABLE HYPOXIA 4 of 4 Normal [facility] ED VITALS FLOW SHEETon 01-08 ED VITALS FLOW SHEET Vitals Vital Sign Flow Sheet [facility] [address] [place] [address] [id number] 01/08/2024 Patient: BRYN AYON Sex: Male : [...] 98.0 F 0 5 of 5 Normal [facility] BMP with eGFRon 01-08-2024 AGE 78 years Normal [facility] Comment on above: Performed By: #### 2 06547 #### [facility],[address] [place] [address] Anion gap [Moles/Vol] 13 mmol/L Normal 10 - 20 [facility] Comment on above: Performed By: #### 2 16037 #### [facility],[address] [place], [place] [phone] BMP with eGFR Normal [facility] Comment on above: Result Comment: BASI C METABOLIC PANEL Performed By: #### 2 74158 #### [facility],[address] [place], [place] [phone] Calcium [Mass/Vol] 8.3 mg/dL Low 8.5 - 10.1 [facility] Comment on above: Performed By: #### 2 40296 #### [facility],[address] [place] [address] 20842 Chloride [Moles/Vol] 103 mmol/L Normal 98 - 107 [facility] Comment on above: Performed By: #### 2 90571 #### [facility],[address] [place] [address] 07963 CO2 [Moles/Vol] 28.5 mmol/L Normal 21.0 - 32.0 [facility] Comment on above: Performed By: #### 2 39732 #### [facility],[address] [place] [address] 66703 Creatinine [Mass/Vol] 2.05 mg/dL High 0.70 - 1.30 [facility] Comment on above: Performed By: #### 2 97696 #### [facility],[address] [place] [address] 03289 eGFR 31 ML/MINUTE Low 60 - 999 [facility] Comment on above: Performed By: #### 2 95000 #### [facility],[address] [place] [address] 75970 eGFR(AA) 38 ML/MINUTE Low 60 - 999 [facility] Comment on above: Result Comment: ACCO RDING TO THE NATIONAL KIDNEY DISEASE EDUCATION PROGRAM(NKDE), A NORMAL eGFR IS A VALUE GREATER THAN OR EQUAL TO 60 ML/MIN/1.73 SQ METERS. CHRONIC KIDNEY DISEASE: <60mL/MIN/1.73 SQ METERS KIDNEY FAILURE: <15mL/MIN/1.73 SQ METERS THIS TEST SHOULD ONLY BE USED FOR PATIENTS 18 YEARS OF AGE AND OLDER. Performed By: #### 2 26644 #### [facility],[address] [place] [address] 37674 Glucose [Mass/Vol] 168 mg/dL High 74 - 106 [facility] Comment on above: Performed By: #### 2 05861 #### [facility],[address] [place] [address] 78493 Potassium [Moles/Vol] 4.4 mmol/L Normal 3.5 - 5.1 [facility] Comment on above: Performed By: #### 2 91697 #### [facility],[address] [place] [address] 99104 Sodium [Moles/Vol] 140 mmol/L Normal 136 - 145 [facility] Comment on above: Performed By: #### 2 65426 #### [facility],[address] [place] [address] 09792 Urea nitrogen [Mass/Vol] 48 mg/dL High 7 - 18 [facility] Comment on above: Performed By: #### 2 02655 #### [facility],[address] [place] [address] 55847 CBC + DIFFon 01-08-2024 Baso # 0.03 x10EE3/UL Normal 0.00 - 0.10 [facility] Comment on above: Performed By: #### 2 54505 ####[facility],[address] [place] [address] Basophils/100 WBC (Bld) 0.3 % Normal 0.0 - 2.0 [facility] Comment on above: Performed By: #### 2 82716 ####[facility],[address] [place] [address] CBC + DIFF Normal [facility] Comment on above: Result Comment: CBC- COMPLETE BLOOD COUNT Performed By: #### 2 20660 ####[place] [address] EO # 0.14 x10EE3/UL Normal 0.00 - 0.50 [facility] Comment on above: Performed By: #### 2 12114 ####[place] [address] Eosinophils/100 WBC (Bld) 1.4 % Normal 0.0 - 7.0 [facility] Comment on above: Performed By: #### 2 26875 ####[place] [address] Erythrocyte distribution width (RBC) [Ratio] 13.7 % Normal 12.0 - 15.6 [facility] Comment on above: Performed By: #### 2 41320 ####[place] [address] Hematocrit (Bld) [Volume fraction] 40.6 % Normal 40.0 - 52.0 [facility] Comment on above: Performed By: #### 2 93141 ####[place] [address] Hemoglobin (Bld) [Mass/Vol] 13.4 g/dL Normal 13.0 - 17.5 [facility] Comment on above: Performed By: #### 2 32635 ####[facility],[address] [place] [address] Lymph # 0.80 x10EE3/UL Normal 0.80 - 2.80 [facility] Comment on above: Performed By: #### 2 49141 ####[facility],[address] [place] [address] Lymphocytes/100 WBC (Bld) 8.0 % Low 20.0 - 45.0 [facility] Comment on above: Performed By: #### 2 52797 ####[facility],[address] [place] [address] MANUAL DIFF N/A Normal [facility] Comment on above: Performed By: #### 2 17399 ####[facility],[address] [place] [address] MCH (RBC) [Entitic mass] 31 pg Normal 27 - 33 [facility] Comment on above: Performed By: #### 2 49121 ####[facility],[address] [place] [address] MCHC 33 X10 3 Normal 32 - 36 [facility] Comment on above: Performed By: #### 2 38636 ####[facility],[address] [place], [place] [phone] MCV (RBC) [Entitic vol] 93 fL Normal 81 - 98 [facility] Comment on above: Performed By: #### 2 89496 ####[facility],[address] [place] [address] Donley # 0.96 x10EE3/UL Normal 0.20 - 1.00 [facility] Comment on above: Performed By: #### 2 95478 ####[facility],[address] [place] [address] MONOS % 9.6 % Normal 0.0 - 10.0 [facility] Comment on above: Performed By: #### 2 48553 ####[facility],[address],[place] [address] Morphology Alvaro (Bld) [Interp] N/A Normal [facility] Comment on above: Performed By: #### 2 67161 ####[facility],[address] [place] [address] 34988 Neut # 8.11 x10EE3/UL High 1.50 - 7.10 [facility] Comment on above: Performed By: #### 2 55431 ####[facility],[address] [place] [address] 30344 Neutrophils/100 WBC (Bld) 80.8 % High 46.0 - 76.0 [facility] Comment on above: Performed By: #### 2 16573 ####[facility],[address] [place] [address] 04491 PLATELET 203 x10EE3/UL Normal 150 - 450 [facility] Comment on above: Performed By: #### 2 23482 ####[facility],[address] [place] [address]3851 Platelet mean volume (Bld) [Entitic vol] 6.7 fL Normal 6.4 - 10.5 [facility] Comment on above: Result Comment: AUTO MATED DIFFERENTIAL Performed By: #### 2 87347 ####[address] [address] RBC 4.36 x 10EE6/UL Low 4.50 - 6.00 [facility] Comment on above: Performed By: #### 2 59542 ####[facility],[address] [place] [address] 34362 WBC 10.0 x 10EE3/UL Normal 4.5 - 10.8 [facility] Comment on above: Performed By: #### 2 96974 ####[facility],[address] [place] [address]751 CHEST 1 VIEWon 01-08-2024 CHEST 1 VIEW [place] [address] Patient: BRYN AYON Phone#: : 1945 Age: 78 Gender: M Pt. Type: ER Account: [id number] Location: 052 Ordering: DR. KRYS BARR Exam Date: 01/08/2024/17:23 Family Phys: Charge Code: [id number] Physician: [place] Order #: [id number] Dose#: PROCEDURE: X-RAY CHEST 1 VIEW COMPARISON: [facility], XR, CHEST 1 VIEW, 01/02/2022, 13:26. [facility], XR, CHEST 2 VIEWS, 01/08/2022, 9:57. [...] Garcia MD on 01/08/2024 at 18:02 Normal [facility] CORONAVIRUS (SARS) ANTIGEN T ESTon 01-08-2024 EXTERNAL QC DONE? YES Normal [facility] Comment on above: Performed By: #### 2 36369 #### [facility],[address] [place] [address] INTERNAL CONTROL PASS Normal [facility] Comment on above: Performed By: #### 2 90464 #### [facility],[address] [place] [address] SARS ANTIGEN Negative Normal NORMAL: NEGATIVE [facility] Comment on above: Performed By: #### 2 25003 #### [facility],[address] [place], [place] [address] SEND TO ? NO Normal [facility] Comment on above: Result Comment: SARS -CoV-2 THIS TEST IS BEING USED UNDER THE FDA EUA PROCEDURE. THIS ASSAY HAS BEEN VALIDATED AT [facility] FOR USE WITH NASAL AND NASOPHARYNGEAL SWAB [...] PUBLIC HEALTH AUTHORITIES. Performed By: #### 2 92989 #### [facility],[address] [place], [place] [id number] CT CHEST (PE PROTOCOL)on CT CHEST (PE PROTOCOL) [place] [address] Patient: BRYN AYONGuillaume Phone#: : 1945 Age: 78 Gender: M Pt. Type: ER Account: [id number] Location: 010 Ordering: ELIEZER CONSTANTINO Exam Date: 01/08/202421:25 Family Phys: Charge Code: [id number] Physician: [place] Order #: [id number] Dose#: 8 PROCEDURE: CT CHEST WITH CONTRAST FOR PE COMPARISON: [facility], CT, CHEST PE W CON, 10/23/2018, [...] recommend dedicated thyroid ultrasound for further characterization. [place] [address] Patient: BRYN AYON Phone#: : 1945 Age: 78 Gender: M Pt. Type: ER Account: [id number] Location: 010 Ordering: ELIEZER CONSTANTINO Exam Date: 01/08/2024/21:25 Family Phys: Charge Code: [id number] Physician: [place] Order #: [id number] Dose#: 8 Dictated by: Teresa Garcia MD on 01/09/2024 at 11:11 Approved by: Teresa Garcia MD on 01/09/2024 at 11:19 Normal [facility] D-DIMER, QUANTITATIVEon 12-19 D-DIMER QUANT 1039 ng/ml High 0 - 230 [facility] Comment on above: Performed By: #### 2 95541 #### [facility],[address] [place], [place] [id number] D-DIMER, QUANTITATIVE Normal [facility] Comment on above: Result Comment: TREVOR T D-DIMER Performed By: #### 2 57826 #### [facility],[address] [place], [place] [phone] INFLUENZA VIRUS RAPID A/Bon 01-08-2024 INFLUENZA VIRUS [...] TO THREE DAYS. RESULT CRITICAL? NO Normal [facility] Comment on above: Performed By: #### 2 69650 ####[facility],[address] [place] [address] LACTATEon 01-08-2024 Lactate [Moles/Vol] 0.8 mmol/L Normal 0.4 - 2.0 [facility] Comment on above: Performed By: #### 2 22271 #### [facility],[address] [place] [address] 46769 NT-proBNPon 11-21-2024 Natriuretic peptide B (Bld) [Mass/Vol] 3150 pg/mL High 0 - 450 [facility] Comment on above: Performed By: #### 2 48595 #### [facility],[address] [place] [address]26[address] TROPONINon 01-08-2024 HS TROPONIN 33.3 pg/mL Normal 0.0 - 76.2 [facility] Comment on above: Performed By: #### 2 [id number] #### [facility],[address] [place] [address] FACILITY CODING SUMMARYon FACILITY CODING SUMMARY Facility Coding Facility Coding Summary [address] [address] [id number] 11/27/2023 Patient: BRYN AYON Sex: Male : [...] from Providers: Splint - Short Arm (CPT: 14245-AM) -- Bryn Rosen D.O. Procedures from Nurses/Facility: Splint - Short Arm (CPT: 87381-EM) 1 of 2 Facility Coding SUPPLIES [facility] 81598-68 This is a partial abstract of information documented in the full record. Courtesy Driver must use independent judgment in selecting codes. CPT copyright 2022 [employer]. All Rights Reserved. 2 of 2 Normal [facility] MED ADMINISTRATION DETAILon 11-27-2023 MED ADMINISTRATION DETAIL Public Health Aides Teacher Medication Administration Record [address] [address] [id number] 11/27/2023 Patient: BRYN AYON Sex: Male : 1945 Age: 78y MEASUREMENTS: Wt: 89.8 kg, Ht/Hector: 69.0 in, BMI: 29.24 ALLERGIES: No known drug allergies Medication Ordered Medication Administration Date/Time 1 of 1 Normal [facility] NURSES CLINICAL REPORT (NOTE S)on 11-27-2023 NURSES CLINICAL REPORT (NOTES) Nurse Narrative Nurse Clinical Narrative [facility] [address] [place] [address] [phone] 11/27/2023 Patient: BRYN AYON Sex: Male : [...] disease stage 3 -- 11:21 11/27/23 SUKHWINDERT Wilyl Rodriguez R.N. 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 Coronary Artery Disease -- 11:22 11/27/23 SUKHWINDERT Willy Rodriguez R.N. Essential Hypertension -- 11:11/27/23 SUKHWINDERT Willy Rodriguez R.N. COPD - Chronic Obstructive Pulmonary Disease -- 11:11/27/23 SUKHWINDERT Willy Rodriguez R.N. 11:18 11/27/23. Preferred pharmacy: [facility]. -- 11:31 11/27/23 YOUSUF Rodriguez R.N. ADDITIONAL [...] patient. Patient has a medical power of sports attorney (nedra ayon). Provided by patient. -- 11:31 [...] Brakes of chair on. -- 12:38 11/27/23 YOUUSF Epstein R.N. 12:44 11/27/23. SPLINT APPLIED: OCL [...] 4 Nu (more content not included)... Normal [facility] ORDER SHEET (CPOE ONLY)on ORDER SHEET (CPOE ONLY) Order Sheet Order Sheet [address] [address] [id number] 11/27/2023 Patient: BRYN AYON Sex: Male : 1945 Age: 78y MEASUREMENTS: Wt: 89.8 kg, Ht/Hector: 69.0 in, BMI: 29.24 ALLERGIES: No known drug allergies MEDICATION/IV/DRIP/F LUID ORDERS Order Description Priority Entered Acknowledged Completed Triple Antibiotic Oint 11:56 11/27/2023 12:04 (Ucpz-Bfis-Joov B)1 applic Bryn Rosen 11/27/2023 (NOW x1) Luiz. Dash Epstein R.N. LAB ORDERS Order Description Priority Entered Acknowledged Collected Completed DIAGNOSTIC STUDY ORDERS Order Description Priority Entered Acknowledged Completed STAFF ORDERS Order Description Priority Entered Acknowledged Collected Completed [Electronically signed by Bryn Rosen D.O. (11/27/2023 20:28 EDT)] 1 of 1 Normal [facility] PHYS CLINICAL REPORT AND ADD ENon 11-27-2023 PHYS CLINICAL REPORT AND ADDEN Narrative Physician Clinical Narrative [address] [address] [id number] 11/27/2023 Patient: BRYN AYON Sex: Male : [...] your hand. Follow-up with: Jade Latham MD, [facility], Internal Medicine, , [address], [place] [address]. Follow up in five days. Call for an appointment. (keep clean and dry. watch for signs of infection (red hot pain)). (Electronically signed by Bryn Rosen D.O. 11/27/23 20:28:43 EDT) 3 of 4 Narrative Generated by [facility] 4 of 4 [facility] PHYS CODING SUMMARY TUBE WORKER AB [facility] 11-27-2023 PHYS CODING SUMMARY TUBE WORKER ABST Coding Summary Coding Summary [address] [place] [address] [id number] 11/27/2023 Patient: BRYN AYON Sex: Male : 1945 Age: 78y ICD-10 Codes S60.811A: Abrasion of right wrist, initial encounter S60.511A: Abrasion of right hand, initial encounter S61.501A: Unspecified open wound of right wrist, initial encounter CPT Codes Splint - Short Arm (CPT: 83825-JX) This is a partial abstract of information documented in the full record. Courtesy Driver must use independent judgment in selecting codes. CPT copyright 2022 [employer]. All Rights Reserved. 1 of 1 [facility] SUPER BILLon 11-27-2023 SUPER BILL [address] [place] [address] [id number] 11/27/2023 Patient: BRYN AYON Sex: Male : 1945 Age: 78y Item Facility Professional Category Description Code Code Quantity Fee Total Nurse/E/M EMERGENCY 854333 1 $0.00 $0.00 DEPARTMENT VISIT MODERATE SEVERITY (99112-75) Physician/Procedures Splint - Short 347142 907491 1 $0.00 $0.00 Arm (02163-RI) Grand Total $0.00 Providers Bryn Rosen D.O. [...] wrist, initial encounter 2 of 2 Normal [facility] VISIT SUMMARYon 11-27-2023 VISIT SUMMARY Visit Overview Visit Overview [address] [address] [id number] 11/27/2023 Patient: BRYN AYON Sex: Male : [...] FOREIGN BODY PRESENT 3 of 3 Normal [facility] PTH, INTACT [CCL]on 07-18-19 24 PTH, Intact 42 pg/mL Normal 15-65 [facility] Comment on above: Result Comment: [address] [place] [address] Roberto Sue III, M.D. [id number] Performed By: #### 2 68449 #### [facility],[address] [place] [address] BMP with eGFRon 07-17-2023 AGE 77 years Normal [facility] Comment on above: Performed By: #### 2 71714 #### [facility],[address] [place] [address] Anion gap [Moles/Vol] 9 mmol/L Low 10 - 20 [facility] Comment on above: Performed By: #### 2 96610 #### [facility],[address] [place] [address] BMP with eGFR Normal [facility] Comment on above: Result Comment: BASI C METABOLIC PANEL Performed By: #### 2 30770 #### [facility],[address] [place] [address] Calcium [Mass/Vol] 9.1 mg/dL Normal 8.5 - 10.1 [facility] Comment on above: Performed By: #### 2 16889 #### [facility],[address] [place] [address] Chloride [Moles/Vol] 105 mmol/L Normal 98 - 107 [facility] Comment on above: Performed By: #### 2 40254 #### [facility],[address] [place] [address] CO2 [Moles/Vol] 32.2 mmol/L High 21.0 - 32.0 [facility] Comment on above: Performed By: #### 2 62188 #### [facility],[address] [place] [address] Creatinine [Mass/Vol] 2.02 mg/dL High 0.70 - 1.30 [facility] Comment on above: Performed By: #### 2 80436 #### [facility],[address] [place] [address] 94192 eGFR 32 ML/MINUTE Low 60 - 999 [facility] Comment on above: Performed By: #### 2 47571 #### [facility],[address] [place] [address] eGFR(AA) 39 ML/MINUTE Low 60 - 999 [facility] Comment on above: Result Comment: ACCO RDING TO THE NATIONAL KIDNEY DISEASE EDUCATION PROGRAM(NKDE), A NORMAL eGFR IS A VALUE GREATER THAN OR EQUAL TO 60 ML/MIN/1.73 SQ METERS. CHRONIC KIDNEY DISEASE: <60mL/MIN/1.73 SQ METERS KIDNEY FAILURE: <15mL/MIN/1.73 SQ METERS THIS TEST SHOULD ONLY BE USED FOR PATIENTS 18 YEARS OF AGE AND OLDER. Performed By: #### 2 99561 #### [facility],[address] [place] [address] Glucose [Mass/Vol] 96 mg/dL Normal 74 - 106 [facility] Comment on above: Performed By: #### 2 35340 #### [facility],[address] [place] [address] Potassium [Moles/Vol] 4.1 mmol/L Normal 3.5 - 5.1 [facility] Comment on above: Performed By: #### 2 39673 #### [facility],[address] [place] [address] Sodium [Moles/Vol] 142 mmol/L Normal 136 - 145 [facility]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 [address] GFR 54 ml/min/1.73sqm Normal [facility] ([place]) Comment on above: Result Comment: GFR [...] GFR, ADIFF, CBC, BMP, ANEU, A1C #### [address] [address] GFR Non- 44 ml/min/1.73sqm Normal [facility] ([place]) Comment on above: Result Comment: GFR [...] GFR, ADIFF, CBC, BMP, ANEU, A1C #### [place] [address] .NEUABSon 03-03-2022 Neutrophil, Absolute 6.1 10 3/mcL Normal 2.3-8.1 [facility] ([place]) Comment on above: Performed By: #### L IPID, GFR, ADIFF, CBC, BMP, ANEU, A1C #### [place] [address] Neutrophil, Absolute 7.4 10 3/mcL Normal 2.3-8.1 [facility] ([place]) Comment on above: Performed By: #### L IPID, GFR, ADIFF, CBC, BMP, ANEU, A1C #### [place] [address] A1Con 03-03-2022 HbA1c (Bld) [Mass fraction] 6.7 % High 4.0-6.0 [facility] ([place]) Comment on above: Performed By: #### L IPID, GFR, ADIFF, CBC, BMP, ANEU, A1C #### [place] [address] APTTon 03-03-2022 aPTT Coag (Bld) [Time] 34.3 s Normal 25.0-35.0 [facility] ([place]) Comment on above: Result Comment: For Heparin anticoagulation therapy, the recommended therapeutic range is: 54-77 seconds (APTT Correlation with Anti-Xa therapeutic range of 0.3-0.7 units/ml). PLEASE REFERENCE THE PHARMACY PROTOCOL FOR DOSING. Performed By: #### L IPID, GFR, ADIFF, CBC, BMP, ANEU, A1C #### [address] [address] Heparin dose (APTT) Unknown Normal [facility] ([place]) Comment on above: Performed By: #### L IPID, GFR, ADIFF, CBC, BMP, ANEU, A1C #### [address] [address] BMPon 03-03-2022 BUN/Creatinine Ratio 18.9 ratio Normal 10.0-22.0 [facility] ([place]) Comment on above: Performed By: #### L IPID, GFR, ADIFF, CBC, BMP, ANEU, A1C #### [address] [address] Calcium [Mass/Vol] 8.3 mg/dL Low 8.7-10.4 [facility] ([place]) Comment on above: Performed By: #### L IPID, GFR, ADIFF, CBC, BMP, ANEU, A1C #### [place] [id number] Chloride [Moles/Vol] 110 mmol/L Normal 98-110 [facility] ([place]) Comment on above: Performed By: #### L IPID, GFR, ADIFF, CBC, BMP, ANEU, A1C #### [address] [address] CO2 [Moles/Vol] 29 mmol/L Normal 22-32 [facility] ([place] Comment on above: Performed By: #### L IPID, GFR, ADIFF, CBC, BMP, ANEU, A1C #### [address] [address] Creatinine [Mass/Vol] 1.48 mg/dL High 0.60-1.40 [facility] [place] Comment on above: Performed By: #### L IPID, GFR, ADIFF, CBC, BMP, ANEU, A1C #### [address] [address] Electrolyte Balance 5.0 mEq/L Normal 4.0-15.0 [facility] ([place]) Comment on above: Performed By: #### L IPID, GFR, ADIFF, CBC, BMP, ANEU, A1C #### [address] [address] Glucose [Mass/Vol] 124 mg/dL High 82-115 [facility] ([place]) Comment on above: Performed By: #### L IPID, GFR, ADIFF, CBC, BMP, ANEU, A1C #### [address] [address] Potassium [Moles/Vol] 4.3 mmol/L Normal 3.5-5.0 [facility] [place] Comment on above: Result Comment: Spec imen slightly hemolyzed. Performed By: #### L IPID, GFR, ADIFF, CBC, BMP, ANEU, A1C #### [place] [id number] Sodium [Moles/Vol] 144 mmol/L Normal 136-145 [facility] ([place]) Comment on above: Performed By: #### L IPID, GFR, ADIFF, CBC, BMP, ANEU, A1C #### [address] [address] Urea nitrogen [Mass/Vol] 28.0 mg/dL High 8.0-22.0 [facility] ([place]) Comment on above: Performed By: #### L IPID, GFR, ADIFF, CBC, BMP, ANEU, A1C #### [address] [address] CBCon 03-03-2022 Erythrocyte distribution width (RBC) [Ratio] 15.1 % Normal 11.5-15.5 [facility] ([place]) Comment on above: Performed By: #### L IPID, GFR, ADIFF, CBC, BMP, ANEU, A1C #### [address] [address] Hematocrit (Bld) [Volume fraction] 33.8 % Low 40.0-52.0 [facility] ([place]) Comment on above: Performed By: #### L IPID, GFR, ADIFF, CBC, BMP, ANEU, A1C #### [address] [address] Hgb 11.4 G/dL Low 13.0-17.5 [facility] ([place]) Comment on above: Performed By: #### L IPID, GFR, ADIFF, CBC, BMP, ANEU, A1C #### [place] [address] MCH (RBC) [Entitic mass] 31.5 pg Normal 27.0-33.0 [facility] ([place]) Comment on above: Performed By: #### L IPID, GFR, ADIFF, CBC, BMP, ANEU, A1C #### [place] [address] MCHC 33.7 G/dL Normal 32.0-36.0 [facility] ([place]) Comment on above: Performed By: #### L IPID, GFR, ADIFF, CBC, BMP, ANEU, A1C #### [place] [address] MCV (RBC) [Entitic vol] 93.4 fL Normal 81.0-100.0 A [facility] ([place]) Comment on above: Performed By: #### L IPID, GFR, ADIFF, CBC, BMP, ANEU, A1C #### [place] [address] Platelet 169 10 3/mcL Normal 150-450 [facility] ([place]) Comment on above: Performed By: #### L IPID, GFR, ADIFF, CBC, BMP, ANEU, A1C #### [place] [address] Platelet mean volume (Bld) [Entitic vol] 7.2 fL Normal 6.4-10.5 [facility] ([place]) Comment on above: Performed By: #### L IPID, GFR, ADIFF, CBC, BMP, ANEU, A1C #### [place] [address] RBC 3.62 10 6/mcL Low 4.50-6.00 [facility] ([place]) Comment on above: Performed By: #### L IPID, GFR, ADIFF, CBC, BMP, ANEU, A1C #### [place] [address] WBC 8.9 10 3/mcL Normal 4.5-10.8 [facility] ([place]) Comment on above: Performed By: #### L IPID, GFR, ADIFF, CBC, BMP, ANEU, A1C #### [place] [address] Erythrocyte distribution width (RBC) [Ratio] 15.1 % Normal 11.5-15.5 [facility] ([place]) Comment on above: Performed By: #### L IPID, GFR, ADIFF, CBC, BMP, ANEU, A1C #### [place] [address] Hematocrit (Bld) [Volume fraction] 36.1 % Low 40.0-52.0 [facility] ([place] Comment on above: Performed By: #### L IPID, GFR, ADIFF, CBC, BMP, ANEU, A1C #### [place] [address] Hgb 12.2 G/dL Low 13.0-17.5 [facility] ([place]) Comment on above: Performed By: #### L IPID, GFR, ADIFF, CBC, BMP, ANEU, A1C #### [place] [address] MCH (RBC) [Entitic mass] 31.4 pg Normal 27.0-33.0 [facility] ([place]) Comment on above: Performed By: #### L IPID, GFR, ADIFF, CBC, BMP, ANEU, A1C #### [place] [address] MCHC 33.9 G/dL Normal 32.0-36.0 [facility] ([place]) Comment on above: Performed By: #### L IPID, GFR, ADIFF, CBC, BMP, ANEU, A1C #### [place] [address] MCV (RBC) [Entitic vol] 92.8 fL Normal 81.0-100.0 A [facility] ([place]) Comment on above: Performed By: #### L IPID, GFR, ADIFF, CBC, BMP, ANEU, A1C #### [address] [address] Platelet 198 10 3/mcL Normal 150-450 [facility] ([place]) Comment on above: Performed By: #### L IPID, GFR, ADIFF, CBC, BMP, ANEU, A1C #### [address] [address] Platelet mean volume (Bld) [Entitic vol] 7.1 fL Normal 6.4-10.5 [facility] ([place]) Comment on above: Performed By: #### L IPID, GFR, ADIFF, CBC, BMP, ANEU, A1C #### [address] [address] RBC 3.89 10 6/mcL Low 4.50-6.00 [facility] ([place]) Comment on above: Performed By: #### L IPID, GFR, ADIFF, CBC, BMP, ANEU, A1C #### [place] [id number] WBC 9.9 10 3/mcL Normal 4.5-10.8 [facility] ([place]) Comment on above: Performed By: #### L IPID, GFR, ADIFF, CBC, BMP, ANEU, A1C #### [place] [address] CKon 03-03-2022 CK [Catalytic activity/Vol] 157 U/L Normal 7-185 [facility] ([place]) Comment on above: Performed By: #### L IPID, GFR, ADIFF, CBC, BMP, ANEU, A1C #### [place] [address] CMPon 03-03-2022 Albumin Level 3.5 G/dL Normal 3.2-4.8 [facility] ([place]) Comment on above: Performed By: #### L IPID, GFR, ADIFF, CBC, BMP, ANEU, A1C #### [place] [address] Albumin/Globulin [Mass ratio] 1.5 {ratio} Normal 0.9-1.6 [facility] ([place]) Comment on above: Performed By: #### L IPID, GFR, ADIFF, CBC, BMP, ANEU, A1C #### [address] [address] ALP [Catalytic activity/Vol] 89 U/L Normal 38-126 [facility] ([place]) Comment on above: Performed By: #### L IPID, GFR, ADIFF, CBC, BMP, ANEU, A1C #### [address] [address] ALT [Catalytic activity/Vol] 15 U/L Normal 12-55 [facility] ([place]) Comment on above: Performed By: #### L IPID, GFR, ADIFF, CBC, BMP, ANEU, A1C #### [address] [address] AST [Catalytic activity/Vol] 18 U/L Normal 8-34 [facility] ([place]) Comment on above: Performed By: #### L IPID, GFR, ADIFF, CBC, BMP, ANEU, A1C #### [place] [id number] Bili Total 0.80 mg/dL Normal 0.20-1.20 [facility] ([place]) Comment on above: Result Comment: Use of this assay is not recommended for patients undergoing treatment with eltrombopag due to the potential for falsely elevated results. Performed By: #### L IPID, GFR, ADIFF, CBC, BMP, ANEU, A1C #### [place] [id number] BUN/Creatinine Ratio 19.0 ratio Normal 10.0-22.0 [facility] ([place]) Comment on above: Performed By: #### L IPID, GFR, ADIFF, CBC, BMP, ANEU, A1C #### [address] [address] Calcium [Mass/Vol] 8.6 mg/dL Low 8.7-10.4 [facility] ([place]) Comment on above: Performed By: #### L IPID, GFR, ADIFF, CBC, BMP, ANEU, A1C #### [address] [address] Chloride [Moles/Vol] 108 mmol/L Normal 98-110 [facility] ([place] Comment on above: Performed By: #### L IPID, GFR, ADIFF, CBC, BMP, ANEU, A1C #### [address] [address] CO2 [Moles/Vol] 31 mmol/L Normal 22-32 [facility] ([place]) Comment on above: Performed By: #### L IPID, GFR, ADIFF, CBC, BMP, ANEU, A1C #### [address] [address] Creatinine [Mass/Vol] 1.53 mg/dL High 0.60-1.40 [facility] [place] Comment on above: Performed By: #### L IPID, GFR, ADIFF, CBC, BMP, ANEU, A1C #### [address] [address] Electrolyte Balance 4.0 mEq/L Normal 4.0-15.0 [facility] ([place]) Comment on above: Performed By: #### L IPID, GFR, ADIFF, CBC, BMP, ANEU, A1C #### [address] [address] Globulin 2.4 G/dL Normal 1.5-3.8 [facility] ([place]) Comment on above: Performed By: #### L IPID, GFR, ADIFF, CBC, BMP, ANEU, A1C #### [address] [address] Glucose [Mass/Vol] 182 mg/dL High 82-115 [facility] ([place]) Comment on above: Performed By: #### L IPID, GFR, ADIFF, CBC, BMP, ANEU, A1C #### [address] [address] Potassium [Moles/Vol] 4.8 mmol/L Normal 3.5-5.0 [facility] [place] Comment on above: Performed By: #### L IPID, GFR, ADIFF, CBC, BMP, ANEU, A1C #### [address] [address] Sodium [Moles/Vol] 143 mmol/L Normal 136-145 [facility] ([place]) Comment on above: Performed By: #### L IPID, GFR, ADIFF, CBC, BMP, ANEU, A1C #### [place] [id number] Total Protein 5.9 G/dL Normal 5.7-8.2 [facility] ([place]) Comment on above: Result Comment: No te - New Reference Range in effect 19 Performed By: #### L IPID, GFR, ADIFF, CBC, BMP, ANEU, A1C #### [place] [address] Urea nitrogen [Mass/Vol] 29.0 mg/dL High 8.0-22.0 [facility] ([place]) Comment on above: Performed By: #### L IPID, GFR, ADIFF, CBC, BMP, ANEU, A1C #### [place] [address] FIBon 03-03-2022 Fibrinogen 659 mg/dL High 250-560 [facility] ([place]) Comment on above: Performed By: #### L IPID, GFR, ADIFF, CBC, BMP, ANEU, A1C #### [place] [address] HHon 03-03-2022 Hematocrit (Bld) [Volume fraction] 36.8 % Low 40.0-52.0 [facility] ([place] Comment on above: Performed By: #### H H #### [place] [address] Hgb 12.3 G/dL Low 13.0-17.5 [facility] ([place]) Comment on above: Performed By: #### H H #### [place] [address] Hematocrit (Bld) [Volume fraction] 36.9 % Low 40.0-52.0 [facility] ([place] Comment on above: Performed By: #### L IPID, GFR, ADIFF, CBC, BMP, ANEU, A1C #### [place] [address] Hgb 12.1 G/dL Low 13.0-17.5 [facility] ([place]) Comment on above: Performed By: #### L IPID, GFR, ADIFF, CBC, BMP, ANEU, A1C #### [address] [address] LIPIDon 03-03-2022 Cholesterol [Mass/Vol] 100 mg/dL Normal 50-199 [facility] ([place]) Comment on above: Result Comment: Chol esterol Reference Interval: Less than 200 Desirable 200-239 Borderline high risk 240 and above High risk Performed By: #### L IPID, GFR, ADIFF, CBC, BMP, ANEU, A1C #### [address] [address] Cholesterol in HDL [Mass/Vol] 30 mg/dL Low 40-59 [facility] ([place]) Comment on above: Performed By: #### L IPID, GFR, ADIFF, CBC, BMP, ANEU, A1C #### [place] [address] Cholesterol in LDL [Mass/Vol] 51 mg/dL Normal 0-129 [facility] ([place]) Comment on above: Performed By: #### L IPID, GFR, ADIFF, CBC, BMP, ANEU, A1C #### [address] [address] Triglyceride [Mass/Vol] 93 mg/dL Normal 3-149 A [facility] ([place]) Comment on above: Performed By: #### L IPID, GFR, ADIFF, CBC, BMP, ANEU, A1C #### [place] [address] MYOSon 03-03-2022 Myoglobin [Mass/Vol] 229.7 ng/mL High 3.0-110.0 [facility] ([place]) Comment on above: Result Comment: No te - New Reference Range in effect 19 Performed By: #### L IPID, GFR, ADIFF, CBC, BMP, ANEU, A1C #### [address] [address] PROon 03-03-2022 INR Coag (PPP) [Relative time] 1.5 {INR} Normal [facility] ([place]) Comment on above: Result Comment: The [employer] (CHEST, 1992, [id number]) recommended therapeutic range for oral anticoagulant therapy is: LOW RISK: Prophylaxis of venous thrombosis INR: 2.0-3.0 Treatment of pulmonary embolism 2.0-3.0 Prevention of systemic embolism 2.0-3.0 HIGH RISK: Mechanical prosthetic valves 2.5-3.5 Performed By: #### L IPID, GFR, ADIFF, CBC, BMP, ANEU, A1C #### [address] [address] PT Coag (PPP) [Time] 18.0 s High 9.0-14.9 [facility] ([place]) Comment on above: Result Comment: Effe ctive 09/01/07, Protime results may be affected by some antibiotics (i.e. Ciprofloxacin, Azithromycin, Bactrim) which may potentiate the action of oral anticoagulants, with further increase in Protime/INR. Performed By: #### L IPID, GFR, ADIFF, CBC, BMP, ANEU, A1C #### [address] [address] UAon 03-03-2022 Color (U) Yellow Normal [facility] ([place]) Comment on above: Performed By: #### A ROXANA #### [place] [id number] Glucose (U) [Mass/Vol] Negative Normal Negative [facility] ([place]) Comment on above: Performed By: #### A ROXANA #### [address] [address] Ketones Ql (U) Negative Normal Neg-Trace [facility] ([place]) Comment on above: Performed By: #### A ROXANA #### [address] [address] UA Appear Clear Normal Clear [facility] ([place]) Comment on above: Performed By: #### A SHAKIR SCHMIDT #### [address] [address] UA Blood Negative Normal Neg-Trace [facility] ([place]) Comment on above: Performed By: #### A SHAKIR SCHMIDT #### [place] [address] UA Leuk Est Negative Normal Negative [facility] ([place]) Comment on above: Performed By: #### A ROXANA, #### [place] [id number] UA Nitrite Negative Normal Negative [facility] ([place]) Comment on above: Performed By: #### A ROXANA, HH #### [place] [address] UA pH 5.5 Normal 5.0 - 8.0 [facility] ([place]) Comment on above: Performed By: #### A ROXANA, HH #### [place] [address] UA Protein Trace Normal Negative [facility] ([place]) Comment on above: Performed By: #### A ROXANA HH #### [place] [address] UA Spec Grav >=1.030 Abnormal 1.006-1.029 [facility] ([place]) Comment on above: Performed By: #### A ROXANA #### [place] [address] UA Specimen Type Clean Catch Normal [facility] ([place]) Comment on above: Performed By: #### A ROXANA #### [place] [address] UA Urobilinogen 1.0 E.U./dL Normal 0.2-1.0 [facility] ([place]) Comment on above: Performed By: #### A ROXANA, HH #### [place] [address] Urobilinogen (U) [Mass/Vol] Negative Normal Neg-Trace [facility] ([place]) Comment on above: Performed By: #### A ROXANA HH #### [place] [address] Von 03-02-2022 Ethanol Level <10.0 Normal [facility] ([place]) Comment on above: Performed By: #### A ROXANA, SHAKIR #### [place] [address] HHon 03-02-2022 Hematocrit (Bld) [Volume fraction] 35.7 % Low 40.0-52.0 [facility] ([place]) Comment on above: Performed By: #### A ROXANA, SHAKIR #### [facility] [address] [place] [address] Hgb 12.1 G/dL Low 13.0-17.5 [facility] ([place]) Comment on above: Performed By: #### A ROXANA, #### [facility] [address] [place] [address] Glucose Glucometer (BldC) [M ass/Vol]on 06-13-2021 Glucose [Mass/Vol] 225 mg/dL 74-106 [facility] Work Phone: Comment on above: MANAGEMENT OF PATIEN T CARE PER NURSING PROTOCOL Absolute lymphocyte counton 06-12-2021 Lymphocytes Auto (Unsp spec) [#/Vol] 1.23 10*3/uL 0.83-4.51 [facility] Work Phone: Basophil percentageon 2021 Basophils/100 WBC (Bld) 0.1 % 0-1 [facility] Work Phone: Chloride [Moles/Vol] 97 mmol/L 98-107 [facility] Work Phone: Eosinophils/100 WBC (Bld) 0.2 % 0-5 [facility] Work Phone: Glucose [Mass/Vol] 266 mg/dL 74-106 [facility] Work Phone: Comment on above: Glucose result great er than or equal to 200 mg/dLsuggests DIABETES MELLITUS per A.D.A. criteria. Neutrophils (Bld) [#/Vol] 12.8 10*3/uL 2.0-7.7 [facility] Work Phone: Neutrophils/100 WBC (Bld) 81.9 % 47-70 [facility] Work Phone: Potassium [Moles/Vol] 4.2 mmol/L 3.5-5.1 [facility] Work Phone: Sodium [Moles/Vol] 135 mmol/L 136-145 [facility]: WBC (Bld) [#/Vol] 15.6 10*3/uL 4.4-11.0 [facility] Work Phone: Blood erythrocytes count (nu mber/volume)on 06-12-2021 RBC (Bld) [#/Vol] 3.97 10*6/uL 4.6-6.2 [facility] Work Phone: Blood hemoglobin measurement (mass/volume)on 06-12-2021 Hemoglobin (Bld) [Mass/Vol] 12.1 g/dL 13.0-16.5 [facility] Work Phone: Blood lymphocytes/100 leukoc yteson 06-12-2021 Lymphocytes/100 WBC (Bld) 7.9 % 19-41 [facility] Work Phone: Blood monocytes/100 leukocyt eson 06-12-2021 Monocytes/100 WBC (Bld) 8.2 % 0-10 [facility] Work Phone: Blood platelet mean volumeon 06-12-2021 Platelet mean volume (Bld) [Entitic vol] 9.1 fL 6.2-12.0 [facility] Work Phone: Determination of erythrocyte mean corpuscular volume (MCV)on 06-12-2021 MCV (RBC) [Entitic vol] 88.9 fL 80-94 [facility] Work Phone: Hematocrit Auto (Bld) [Volum e fraction]on 06-12-2021 Hematocrit (Bld) [Volume fraction] 35.3 % 40-54 [facility] Work Phone: Laboratory - Chemistry and C hemistry - challengeon 06-12-2021 CO2 [Moles/Vol] 33.0 mmol/L 21.0-32.0 [facility] Work Phone: Magnesium [Mass/Vol] 1.9 mg/dL 1.6-2.6 [facility] Work Phone: Urea nitrogen/Creatinine [Mass ratio] 35.3 mg/mg 10-20 [facility] Work Phone: Laboratory - Hematology and Cell countson 06-12-2021 Erythrocyte distribution width (RBC) [Entitic vol] 39.7 fL 35.1-43.9 [facility] Work Phone: Erythrocyte distribution width (RBC) [Ratio] 12.2 % 11.6-14.6 [facility] Work Phone: Immature granulocytes/100 WBC (Bld) 1.700 % 0.0-0.9 [facility] Work Phone: Comment on above: IG% - Immature Granu locytes (promyelocytes, myelocytes and metamyelocytes) > 1% indicates that a LEFT SHIFT is Present. MCH (RBC) [Entitic mass] 30.5 pg 27.0-32.0 [facility] Work Phone: Nucleated RBC/100 WBC (Bld) [Ratio] 0 % 0-5 [facility] Work Phone: MCHC Auto (RBC) [Mass/Vol]on 06-12-2021 MCHC (RBC) [Mass/Vol] 34.3 g/dL 32-36 [facility] Work Phone: No Panel Informationon 06-12 Estimated Creatinine Clearance Calc 35.14 ml/min [facility] Work Phone: Estimated GFR (MDRD) Amer 50 mL/min >60 [facility] Work Phone: Comment on above: GFR Calc Estimated GFR (MDRD) Non-Af Amer 41 mL/min >60 [facility] Work Phone: Comment on above: Non- GFR Calc Platelets bldon 06-12-2021 Platelets (Bld) [#/Vol] 230 10*3/uL 150-450 [facility] Work Phone: Serum or plasma calcium gilda urement (mass/volume)on 06-12-2021 Calcium [Mass/Vol] 8.7 mg/dL 8.5-10.1 [facility] Work Phone: Serum or plasma creatinine m easurement (mass/volume)on 06-12-2021 Creatinine [Mass/Vol] 1.73 mg/dL 0.70-1.30 [facility] Work Phone: Comment on above: The validity of the calculated GFR & GFRAA in patients over 70 years has not been determined. Clinical correlation is essential. Serum or plasma urea nitroge n measurement (mass/volume)on 06-12-2021 Urea nitrogen [Mass/Vol] 61 mg/dL 7-18 [facility] Work Phone: Thin prep Papanicolaou smear with manual screeningon 06-12-2021 Thin prep Papanicolaou smear with manual screening 5 5-15 [facility] Work Phone: Absolute lymphocyte counton 06-11-2021 Lymphocytes Auto (Unsp spec) [#/Vol] 0.59 10*3/uL 0.83-4.51 [facility] Work Phone: Basophil percentageon 2021 Basophils/100 WBC (Bld) 0.1 % 0-1 [facility] Work Phone: Chloride [Moles/Vol] 88 mmol/L 98-107 [facility] Work Phone: Eosinophils/100 WBC (Bld) 0.0 % 0-5 [facility] Work Phone: Glucose [Mass/Vol] 736 mg/dL 74-106 [facility] Work Phone: Comment on above: Critical Result(s) C alled at: 22:37:16 06/11/2021 by: JR GALAN TO DIONY HDEZ. Results read back by same.Glucose result greater than or equal to 200 mg/dLsuggests DIABETES MELLITUS per A.D.A. criteria. Neutrophils (Bld) [#/Vol] 13.6 10*3/uL 2.0-7.7 [facility] Work Phone: Neutrophils/100 WBC (Bld) 88.7 % 47-70 [facility] Work Phone: Potassium [Moles/Vol] 5.1 mmol/L 3.5-5.1 [facility] Work Phone: Sodium [Moles/Vol] 128 mmol/L 136-145 [facility] Work Phone: WBC (Bld) [#/Vol] 15.3 10*3/uL 4.4-11.0 [facility] Work Phone: Blood erythrocytes count (nu mber/volume)on 06-11-2021 RBC (Bld) [#/Vol] 4.35 10*6/uL 4.6-6.2 [facility] Work Phone: Blood hemoglobin measurement (mass/volume)on 06-11-2021 Hemoglobin (Bld) [Mass/Vol] 13.2 g/dL 13.0-16.5 [facility] Work Phone: Blood lymphocytes/100 leukoc yteson 06-11-2021 Lymphocytes/100 WBC (Bld) 3.8 % 19-41 [facility] Work Phone: Blood manual differential co mment interpretation (narrative result)on 06-11-2021 Manual differential comment Alvaro (Bld) [Interp] SCANNED [facility] Work Phone: Comment on above: LYMPHOPENIA NOTED Blood monocytes/100 leukocyt eson 06-11-2021 Monocytes/100 WBC (Bld) 5.7 % 0-10 [facility] Work Phone: Blood platelet mean volumeon 06-11-2021 Platelet mean volume (Bld) [Entitic vol] 9.8 fL 6.2-12.0 [facility] Work Phone: Determination of erythrocyte mean corpuscular volume (MCV)on 06-11-2021 MCV (RBC) [Entitic vol] 89.9 fL 80-94 [facility] Work Phone: Glucose Glucometer (BldC) [M ass/Vol]on 06-11-2021 Glucose [Mass/Vol] mg/dL 74-106 [facility] Work Phone: Comment on above: MANAGEMENT OF PATIEN T CARE PER NURSING PROTOCOL Hematocrit Auto (Bld) [Volum e fraction]on 06-11-2021 Hematocrit (Bld) [Volume fraction] 39.1 % 40-54 [facility] Work Phone: Laboratory - Chemistry and C hemistry - challengeon 06-11-2021 CO2 [Moles/Vol] 32.0 mmol/L 21.0-32.0 [facility] Work Phone: Urea nitrogen/Creatinine [Mass ratio] 31.8 mg/mg 10-20 [facility] Work Phone: Laboratory - Hematology and Cell countson 06-11-2021 Erythrocyte distribution width (RBC) [Entitic vol] 41.6 fL 35.1-43.9 [facility] Work Phone: Erythrocyte distribution width (RBC) [Ratio] 12.5 % 11.6-14.6 [facility] Work Phone: Immature granulocytes/100 WBC (Bld) 1.700 % 0.0-0.9 [facility] Work Phone: Comment on above: IG% - Immature Granu locytes (promyelocytes, myelocytes and metamyelocytes) > 1% indicates that a LEFT SHIFT is Present. MCH (RBC) [Entitic mass] 30.3 pg 27.0-32.0 [facility] Work Phone: Nucleated RBC/100 WBC (Bld) [Ratio] 0 % 0-5 [facility] Work Phone: MCHC Auto (RBC) [Mass/Vol]on 06-11-2021 MCHC (RBC) [Mass/Vol] 33.8 g/dL 32-36 [facility] Work Phone: No Panel Informationon 06-11 Estimated Creatinine Clearance Calc 27.64 ml/min [facility] Work Phone: Estimated GFR (MDRD) Amer 38 mL/min >60 [facility] Work Phone: Comment on above: GFR Calc Estimated GFR (MDRD) Non-Af Amer 31 mL/min >60 [facility] Work Phone: Comment on above: Non- GFR Calc Platelets bldon 06-11-2021 Platelets (Bld) [#/Vol] 253 10*3/uL 150-450 [facility] Work Phone: Review by pathologiston 05-19 Pathologist review Alvaro (Unsp spec) [Interp] June [facility] Work Phone: Serum or plasma acetone gilda urement (mass/volume)on 06-11-2021 Acetone [Mass/Vol] Negative NEG [facility] Work Phone: Serum or plasma calcium gilda urement (mass/volume)on 06-11-2021 Calcium [Mass/Vol] 9.6 mg/dL 8.5-10.1 [facility] Work Phone: Serum or plasma creatinine m easurement (mass/volume)on 06-11-2021 Creatinine [Mass/Vol] 2.20 mg/dL 0.70-1.30 [facility] Work Phone: Comment on above: The validity of the calculated GFR & GFRAA in patients over 70 years has not been determined. Clinical correlation is essential. Serum or plasma urea nitroge n measurement (mass/volume)on 06-11-2021 Urea nitrogen [Mass/Vol] 70 mg/dL 7-18 [facility] Work Phone: Thin prep Papanicolaou smear with manual screeningon 06-11-2021 Thin prep Papanicolaou smear with manual screening 322 mOsm/KG 280-301 [facility] Work Phone: Thin prep Papanicolaou smear with manual screening 8 5-15 [facility] Work Phone: Whole blood hemoglobin A1c/t otal hemoglobin ratio (mass fraction)on 06-11-2021 HbA1c (Bld) [Mass fraction] 9.3 % 3.8-5.6 [facility] Work Phone: Comment on above: Normal < 5.7 % Predi abetic 5.7 - 6.4 % Diabetic >or= 6.5 % Please note range changes. Absolute lymphocyte counton 06-01-2021 Lymphocytes Auto (Unsp spec) [#/Vol] 0.92 10*3/uL 0.83-4.51 [facility] Work Phone: Basophil percentageon 2021 Basophils/100 WBC (Bld) 0.4 % 0-1 [facility] Work Phone: Bilirubin [Mass/Vol] 0.80 mg/dL 0.20-1.00 [facility] Work Phone: Comment on above: For patients on eltr ombopag therapy, use of Dimension [place] TBIL is not recommended. Chloride [Moles/Vol] 98 mmol/L 98-107 [facility] Work Phone: Eosinophils/100 WBC (Bld) 0.3 % 0-5 [facility] Work Phone: Glucose [Mass/Vol] 329 mg/dL 74-106 [facility] Work Phone: Comment on above: Glucose result great er than or equal to 200 mg/dLsuggests DIABETES MELLITUS per A.D.A. criteria. Neutrophils (Bld) [#/Vol] 12.2 10*3/uL 2.0-7.7 [facility] Work Phone: Neutrophils/100 WBC (Bld) 81.3 % 47-70 [facility] Work Phone: Potassium [Moles/Vol] 4.9 mmol/L 3.5-5.1 [facility] Work Phone: Protein [Mass/Vol] 6.8 g/dL 6.4-8.2 [facility] Work Phone: Sodium [Moles/Vol] 133 mmol/L 136-145 [facility] Work Phone: WBC (Bld) [#/Vol] 15.0 10*3/uL 4.4-11.0 [facility] Work Phone: Blood erythrocytes count (nu mber/volume)on 06-01-2021 RBC (Bld) [#/Vol] 4.58 10*6/uL 4.6-6.2 [facility] Work Phone: Blood hemoglobin measurement (mass/volume)on 06-01-2021 Hemoglobin (Bld) [Mass/Vol] 13.9 g/dL 13.0-16.5 [facility] Work Phone: Blood lymphocytes/100 leukoc yteson 06-01-2021 Lymphocytes/100 WBC (Bld) 6.1 % 19-41 [facility] Work Phone: Blood monocytes/100 leukocyt eson 06-01-2021 Monocytes/100 WBC (Bld) 9.2 % 0-10 [facility] Work Phone: Blood platelet mean volumeon 06-01-2021 Platelet mean volume (Bld) [Entitic vol] 8.8 fL 6.2-12.0 [facility] Work Phone: Bronchoalveolar lavage cultu re with Gram stainon 06-01-2021 Respiratory Culture Pseudomonas aeroginosa [facility] Work Phone: Determination of erythrocyte mean corpuscular volume (MCV)on 06-01-2021 MCV (RBC) [Entitic vol] 89.7 fL 80-94 [facility] Work Phone: Gram stain for investigation of transfusion reactionon 06-01-2021 Microscopic observation Gram stain Nom (Unsp spec) [facility] Work Phone: Hematocrit Auto (Bld) [Volum e fraction]on 06-01-2021 Hematocrit (Bld) [Volume fraction] 41.1 % 40-54 [facility] Work Phone: Laboratory - Chemistry and C hemistry - challengeon 06-01-2021 ALP [Catalytic activity/Vol] 89 U/L 45-117 [facility] Work Phone: [phone] ALT [Catalytic activity/Vol] 43 U/L 16-61 [facility] Work Phone: [phone] CO2 [Moles/Vol] 29.0 mmol/L 21.0-32.0 [facility] Work Phone: [phone] Globulin (S) [Mass/Vol] 3.6 g/dL 2.2-4.2 [facility] Work Phone: [phone] Urea nitrogen/Creatinine [Mass ratio] 30.0 mg/mg 10-20 [facility] Work Phone: Laboratory - Hematology and Cell countson 06-01-2021 Erythrocyte distribution width (RBC) [Entitic vol] 42.2 fL 35.1-43.9 [facility] Work Phone: Erythrocyte distribution width (RBC) [Ratio] 12.8 % 11.6-14.6 [facility] Work Phone: [phone] Immature granulocytes/100 WBC (Bld) 2.700 % 0.0-0.9 [facility] Work Phone: Comment on above: IG% - Immature Granu locytes (promyelocytes, myelocytes and metamyelocytes) > 1% indicates that a LEFT SHIFT is Present. MCH (RBC) [Entitic mass] 30.3 pg 27.0-32.0 [facility] Work Phone: Nucleated RBC/100 WBC (Bld) [Ratio] 0 % 0-5 [facility] Work Phone: [phone] MCHC Auto (RBC) [Mass/Vol]on 06-01-2021 MCHC (RBC) [Mass/Vol] 33.8 g/dL 32-36 [facility] Work Phone: No Panel Informationon 06-01 Estimated Creatinine Clearance Calc 38.00 ml/min [facility] Work Phone: Estimated GFR (MDRD) Amer 54 mL/min >60 [facility] Work Phone: Comment on above: GFR Calc Estimated GFR (MDRD) Non-Af Amer 45 mL/min >60 [facility] Work Phone: Comment on above: Non- GFR Calc Troponin I High Sensitivity 25 pg/mL 3.0-78.0 [facility] Work Phone: Comment on above: Please Note: [place] t Units and Gender Specific Reference Ranges. For more information see Policy Stat Procedure [place] High Sensitivity Troponin (TNIH) and attachments. Platelets bldon 06-01-2021 Platelets (Bld) [#/Vol] 265 10*3/uL 150-450 [facility] Work Phone: Serum or plasma albumin gilda urement (mass/volume)on 06-01-2021 Albumin [Mass/Vol] 3.2 g/dL 3.2-5.0 [facility] Work Phone: Serum or plasma albumin/glob ulin mass ratioon 06-01-2021 Albumin/Globulin [Mass ratio] 0.9 {ratio} 0.9-2.4 [facility] Work Phone: Serum or plasma calcium gilda urement (mass/volume)on 06-01-2021 Calcium [Mass/Vol] 9.4 mg/dL 8.5-10.1 [facility] Work Phone: Serum or plasma creatinine m easurement (mass/volume)on 06-01-2021 Creatinine [Mass/Vol] 1.60 mg/dL 0.70-1.30 [facility] Work Phone: Comment on above: The validity of the calculated GFR & GFRAA in patients over 70 years has not been determined. Clinical correlation is essential. Serum or plasma urea nitroge n measurement (mass/volume)on 06-01-2021 Urea nitrogen [Mass/Vol] 48 mg/dL 7-18 [facility] Work Phone: Thin prep Papanicolaou smear with manual screeningon 06-01-2021 Thin prep Papanicolaou smear with manual screening 16 U/L 15-37 [facility] Work Phone: Thin prep Papanicolaou smear with manual screening 6 5-15 [facility] Work Phone: Absolute lymphocyte counton 05-27-2021 Lymphocytes Auto (Unsp spec) [#/Vol] 0.92 10*3/uL 0.83-4.51 [facility] Work Phone: Basophil percentageon 2021 Basophils/100 WBC (Bld) 0.3 % 0-1 [facility] Work Phone: Chloride [Moles/Vol] 102 mmol/L 98-107 [facility] Work Phone: Eosinophils/100 WBC (Bld) 0.8 % 0-5 [facility] Work Phone: Glucose [Mass/Vol] 210 mg/dL 74-106 [facility] Work Phone: Comment on above: Glucose result great er than or equal to 200 mg/dLsuggests DIABETES MELLITUS per A.D.A. criteria. Neutrophils (Bld) [#/Vol] 5.5 10*3/uL 2.0-7.7 [facility] Work Phone: Neutrophils/100 WBC (Bld) 76.2 % 47-70 [facility] Work Phone: Potassium [Moles/Vol] 5.2 mmol/L 3.5-5.1 [facility] Work Phone: [phone] Sodium [Moles/Vol] 135 mmol/L 136-145 [facility] Work Phone: WBC (Bld) [#/Vol] 7.2 10*3/uL 4.4-11.0 [facility] Work Phone: Blood erythrocytes count (nu mber/volume)on 05-27-2021 RBC (Bld) [#/Vol] 4.55 10*6/uL 4.6-6.2 [facility] Work Phone: Blood hemoglobin measurement (mass/volume)on 05-27-2021 Hemoglobin (Bld) [Mass/Vol] 13.9 g/dL 13.0-16.5 [facility] Work Phone: Blood lymphocytes/100 leukoc yteson 05-27-2021 Lymphocytes/100 WBC (Bld) 12.8 % 19-41 [facility] Work Phone: Blood monocytes/100 leukocyt eson 05-27-2021 Monocytes/100 WBC (Bld) 9.5 % 0-10 [facility] Work Phone: Blood platelet mean volumeon 05-27-2021 Platelet mean volume (Bld) [Entitic vol] 8.8 fL 6.2-12.0 [facility] Work Phone: Determination of erythrocyte mean corpuscular volume (MCV)on 05-27-2021 MCV (RBC) [Entitic vol] 91.9 fL 80-94 [facility] Work Phone: Hematocrit Auto (Bld) [Volum e fraction]on 05-27-2021 Hematocrit (Bld) [Volume fraction] 41.8 % 40-54 [facility] Work Phone: Laboratory - Chemistry and C hemistry - challengeon 05-27-2021 CO2 [Moles/Vol] 30.0 mmol/L 21.0-32.0 [facility] Work Phone: Natriuretic peptide B (Bld) [Mass/Vol] 111.0 pg/mL 0-100 [facility] Work Phone: Urea nitrogen/Creatinine [Mass ratio] 22.7 mg/mg 10-20 [facility] Work Phone: Laboratory - Hematology and Cell countson 05-27-2021 Erythrocyte distribution width (RBC) [Entitic vol] 45.6 fL 35.1-43.9 [facility] Work Phone: Erythrocyte distribution width (RBC) [Ratio] 13.2 % 11.6-14.6 [facility] Work Phone: Immature granulocytes/100 WBC (Bld) 0.400 % 0.0-0.9 [facility] Work Phone: Comment on above: IG% - Immature Granu locytes (promyelocytes, myelocytes and metamyelocytes) > 1% indicates that a LEFT SHIFT is Present. MCH (RBC) [Entitic mass] 30.5 pg 27.0-32.0 [facility] Work Phone: Nucleated RBC/100 WBC (Bld) [Ratio] 0 % 0-5 [facility] Work Phone: MCHC Auto (RBC) [Mass/Vol]on 05-27-2021 MCHC (RBC) [Mass/Vol] 33.3 g/dL 32-36 [facility] Work Phone: No Panel Informationon 05-27 Estimated Creatinine Clearance Calc 29.09 ml/min [facility] Work Phone: Estimated GFR (MDRD) Amer 38 mL/min >60 [facility] Work Phone: Comment on above: GFR Calc Estimated GFR (MDRD) Non-Af Amer 32 mL/min >60 [facility] Work Phone: Comment on above: Non- GFR Calc Troponin I High Sensitivity 15 pg/mL 3.0-78.0 [facility] Work Phone: Comment on above: Please Note: [place] t Units and Gender Specific Reference Ranges. For more information see Policy Stat Procedure [place] High Sensitivity Troponin (TNIH) and attachments. Platelets bldon 05-27-2021 Platelets (Bld) [#/Vol] 184 10*3/uL 150-450 [facility] Work Phone: Serum or plasma calcium gilda urement (mass/volume)on 05-27-2021 Calcium [Mass/Vol] 9.1 mg/dL 8.5-10.1 [facility] Work Phone: Serum or plasma creatinine m easurement (mass/volume)on 05-27-2021 Creatinine [Mass/Vol] 2.16 mg/dL 0.70-1.30 [facility] [facility] [place] Work Phone: Comment on above: The validity of the calculated GFR & GFRAA in patients over 70 years has not been determined. Clinical correlation is essential. Serum or plasma urea nitroge n measurement (mass/volume)on 05-27-2021 Urea nitrogen [Mass/Vol] 49 mg/dL 7-18 [facility] Work Phone: Thin prep Papanicolaou smear with manual screeningon 05-27-2021 Thin prep Papanicolaou smear with manual screening 3 07-01 [facility] Work Phone: Vital Signs Date Time Vital Sign Value Performing Clinician Facility 08-31-2024 03:00-0400 Body temperature 96.9 [degF] [facility] 08-31-2024 03:00-0400 Diastolic blood pressure 70 mm[Hg] [facility] 08-31-2024 03:00-0400 Heart rate 66 /min [facility] 08-31-2024 03:00-0400 Respiratory rate 18 /min [facility] 08-31-2024 03:00-0400 SaO2% (BldA) [Mass fraction] 97 % [facility] 08-31-2024 03:00-0400 Systolic blood pressure 162 mm[Hg] [facility] 08-31-2024 01:30-0400 Inhaled oxygen concentration 30 % [facility] 08-31-2024 01:04-0400 Inhaled oxygen flow rate 5 L/min [facility] 08-31-2024 00:57-0400 Body height 172.72 cm [facility] 08-31-2024 00:57-0400 Body mass index (BMI) [Ratio] 28 kg/m2 [facility] 08-31-2024 00:57-0400 Body weight 83.5 kg [facility] 08-06-2024 08:37-0400 Body height 172.72 cm [facility] 08-06-2024 08:37-0400 Body mass index (BMI) [Ratio] 28.8 kg/m2 [facility] 08-06-2024 08:37-0400 Body weight 85.95 kg [facility] 08-05-2024 07:59-0400 Body mass index (BMI) [Ratio] 28.4 kg/m2 [facility] 08-05-2024 07:59-0400 Body temperature 97.4 [degF] [facility] 08-05-2024 07:59-0400 Body weight 84.82 kg [facility] 08-05-2024 07:59-0400 Diastolic blood pressure 61 mm[Hg] [facility] 08-05-2024 07:59-0400 Heart rate 48 /min [facility] 08-05-2024 07:59-0400 Respiratory rate 18 /min [facility] 08-05-2024 07:59-0400 SaO2% (BldA) [Mass fraction] 92 % [facility] 08-05-2024 07:59-0400 Systolic blood pressure 130 mm[Hg] [facility] 07-08-2024 14:39-0400 Body mass index (BMI) [Ratio] 27.5 kg/m2 [facility] 07-08-2024 14:11-0400 Heart rate 43 /min [facility] 07-08-2024 14:11-0400 SaO2% (BldA) [Mass fraction] 98 % [facility] 07-08-2024 13:51-0400 Body height 172.72 cm [facility] 07-08-2024 13:51-0400 Body weight 82.1 kg [facility] 07-08-2024 13:37-0400 Diastolic blood pressure 69 mm[Hg] [facility] 07-08-2024 13:37-0400 Systolic blood pressure 142 mm[Hg] [facility] 08-07-2022 10:27-0400 Body temperature 97.34 [degF] ELIEZER PRO MD [facility] 08-07-2022 10:27-0400 Body weight 97.3 kg ELIEZER PRO MD [facility] 08-07-2022 10:27-0400 Diastolic Blood Pressure Non-Invasive 59 1 ELIEZER PRO MD [facility] 08-07-2022 10:27-0400 Heart rate 50 /min ELIEZER PRO MD [facility] 08-07-2022 10:27-0400 Respiratory rate 16 /min ELIEZER PRO MD [facility] 08-07-2022 10:27-0400 Systolic Blood Pressure Non-Invasive 192 1 ELIEZER PRO MD [facility] 06-13-2021 13:20-0400 Diastolic blood pressure 61 mm[Hg] Dr. Ghassan Munoz Work Phone: [facility] Work Phone: 06-13-2021 13:20-0400 Heart rate 61 /min Dr. Ghassan Munoz Work Phone: [facility] Work Phone: 06-13-2021 13:20-0400 Respiratory rate 16 /min Dr. Ghassan Munoz Work Phone: [facility] Work Phone: 06-13-2021 13:20-0400 SaO2% (BldA) [Mass fraction] 100 % Dr. Ghassan Munoz Work Phone: [facility] Work Phone: 06-13-2021 13:20-0400 Systolic blood pressure 112 mm[Hg] Dr. Ghassan Munoz Work Phone: [facility] Work Phone: 06-13-2021 08:25-0400 Body temperature 97 [degF] Dr. Ghassan Munoz Work Phone: [facility] Work Phone: 06-13-2021 06:00-0400 Body weight 88.[address] Ghassan Munoz Work Phone: [facility] Work Phone: 06-12-2021 10:03-0400 Body height 172.[address] Ghassan Munoz Work Phone: [facility] Work Phone: 06-12-2021 00:34-0400 Body mass index (BMI) [Ratio] 29.9 kg/m2 Dr. Ghassan Munoz Work Phone: [facility] Work Phone: 06-11-2021 23:29-0400 Body temperature 98 [degF] Dr. Ghassan Munoz Work Phone: [facility] Work Phone: 06-11-2021 23:29-0400 Diastolic blood pressure 59 mm[Hg] Dr. Ghassan Munoz Work Phone: [facility] Work Phone: 06-11-2021 23:29-0400 Heart rate 61 /min Dr. Ghassan Munoz Work Phone: [facility] Work Phone: 06-11-2021 23:29-0400 Respiratory rate 13 /min Dr. Ghassan Munoz Work Phone: [facility] Work Phone: 06-11-2021 23:29-0400 SaO2% (BldA) [Mass fraction] 95 % Dr. Ghassan Munoz Work Phone: [facility] Work Phone: 06-11-2021 23:29-0400 Systolic blood pressure 118 mm[Hg] Dr. Ghassan Munoz Work Phone: [facility] Work Phone: 06-11-2021 20:32-0400 Body height 172.[address] Ghassan Munoz Work Phone: [facility] Work Phone: 06-11-2021 20:32-0400 Body mass index (BMI) [Ratio] 32.6 kg/m2 Dr. Ghassan Munoz Work Phone: [facility] Work Phone: 06-11-2021 20:32-0400 Body weight 97.[address] Ghassan Munoz Work Phone: [facility] Work Phone: 06-01-2021 18:44-0400 Diastolic blood pressure 56 mm[Hg] Dr. Ghassan Munoz Work Phone: [facility] Work Phone: 06-01-2021 18:44-0400 Heart rate 76 /min Dr. Ghassan Munoz Work Phone: [facility] Work Phone: 06-01-2021 18:44-0400 Respiratory rate 20 /min Dr. Ghassan Munoz Work Phone: [facility] Work Phone: 06-01-2021 18:44-0400 SaO2% (BldA) [Mass fraction] 96 % Dr. Ghassan Munoz Work Phone: [facility] Work Phone: 06-01-2021 18:44-0400 Systolic blood pressure 124 mm[Hg] Dr. Ghassan Munoz Work Phone: [facility] Work Phone: 06-01-2021 13:12-0400 Body height 172.[address] Ghassan Munoz Work Phone: [facility] Work Phone: 06-01-2021 13:12-0400 Body mass index (BMI) [Ratio] 32.6 kg/m2 Dr. Ghassan Munoz Work Phone: [facility] Work Phone: 06-01-2021 13:12-0400 Body temperature 97.5 [degF] Dr. Ghassan Munoz Work Phone: [facility] Work Phone: 06-01-2021 13:12-0400 Body weight 97.[address] Ghassan Munoz Work Phone: [facility] Work Phone: 05-27-2021 15:25-0400 Diastolic blood pressure 62 mm[Hg] Dr. Ghassan Munoz Work Phone: [facility] Work Phone: 05-27-2021 15:25-0400 Heart rate 50 /min Dr. Ghassan Munoz Work Phone: [facility] Work Phone: 05-27-2021 15:25-0400 Respiratory rate 18 /min Dr. Ghassan Munoz Work Phone: [facility] Work Phone: 05-27-2021 15:25-0400 SaO2% (BldA) [Mass fraction] 95 % Dr. Ghassan Munoz Work Phone: [facility] Work Phone: 05-27-2021 15:25-0400 Systolic blood pressure 137 mm[Hg] Dr. Ghassan Munoz Work Phone: [facility] Work Phone: 05-27-2021 14:10-0400 Body height 175.[address] Ghassan Munoz Work Phone: [facility] Work Phone: 05-27-2021 14:10-0400 Body mass index (BMI) [Ratio] 30.8 kg/m2 Dr. Ghassan Munoz Work Phone: [facility] Work Phone: 05-27-2021 14:10-0400 Body temperature 96.6 [degF] Dr. Ghassan Munoz Work Phone: [facility] Work Phone: 05-27-2021 14:10-0400 Body weight 94.[address] Ghassan Munoz Work Phone: [facility] Work Phone: 05-22-2021 14:06-0400 Body temperature 98.8 [degF] Dr. Ghassan Munoz Work Phone: [facility] Work Phone: 05-22-2021 14:06-0400 Diastolic blood pressure 77 mm[Hg] Dr. Ghassan Munoz Work Phone: [facility] Work Phone: 05-22-2021 14:06-0400 Heart rate 50 /min Dr. Ghassan Munoz Work Phone: [facility] Work Phone: 05-22-2021 14:06-0400 Respiratory rate 16 /min Dr. Ghassan Munoz Work Phone: [facility] Work Phone: 05-22-2021 14:06-0400 SaO2% (BldA) [Mass fraction] 93 % Dr. Ghassan Munoz Work Phone: [facility] Work Phone: 05-22-2021 14:06-0400 Systolic blood pressure 150 mm[Hg] Dr. Ghassan Munoz Work Phone: [facility] Work Phone: 05-08-2021 15:07-0400 Body mass index (BMI) [Ratio] 31.7 kg/m2 Dr. Ghassan Munoz Work Phone: [facility] Work Phone: 05-08-2021 15:07-0400 Body temperature 98.3 [degF] Dr. Ghassan Munoz Work Phone: [facility] Work Phone: 05-08-2021 15:07-0400 Body weight 97.[address] Ghassan Munoz Work Phone: [facility] Work Phone: 05-08-2021 15:07-0400 Diastolic blood pressure 54 mm[Hg] Dr. Ghassan Munoz Work Phone: [facility] Work Phone: 05-08-2021 15:07-0400 Heart rate 52 /min Dr. Ghassan Munoz Work Phone: [facility] Work Phone: 05-08-2021 15:07-0400 Respiratory rate 16 /min Dr. Ghassan Munoz Work Phone: [facility] Work Phone: 05-08-2021 15:07-0400 SaO2% (BldA) [Mass fraction] 97 % Dr. Ghassan Munoz Work Phone: [facility] Work Phone: 05-08-2021 15:07-0400 Systolic blood pressure 109 mm[Hg] Dr. Ghassan Munoz Work Phone: [facility] Work Phone: 02-05-2021 12:20-0500 Body mass index (BMI) [Ratio] 32.2 kg/m2 Dr. Ghassan Munoz Work Phone: [facility] Work Phone: 02-05-2021 12:20-0500 Body temperature 98.7 [degF] Dr. Ghassan Munoz Work Phone: [facility] Work Phone: 02-05-2021 12:20-0500 Body weight 97.[address] Ghassan Munoz Work Phone: [facility] Work Phone: 02-05-2021 12:20-0500 Diastolic blood pressure 69 mm[Hg] Dr. Ghassan Munoz Work Phone: [facility] Work Phone: 02-05-2021 12:20-0500 Heart rate 55 /min Dr. Ghassan Munzo Work Phone: [facility] Work Phone: 02-05-2021 12:20-0500 Respiratory rate 16 /min Dr. Ghassan Munoz Work Phone: [facility] Work Phone: 02-05-2021 12:20-0500 Systolic blood pressure 119 mm[Hg] Dr. Ghassan Munoz Work Phone: [facility] Work Phone: Encounters Encounter Date Encounter Type Care Provider Facility Start: 08-31-2024 Evaluation and management of inpatient Dr. Scout Lebron MD -Progressive Care Unit Work Phone: Start: 08-31-2024 Non-patient / Non-visit Dr. Scout Lebron MD -[place] [facility] Work Phone: Start: 08-30-2024 Patient encounter procedure Maria Luisa ESPAÑA -Sleep Lab Work Phone: Start: 08-30-2024 ambulatory [facility] Facility:[facility] Start: 08-30-2024 [facility] Work Phone: Start: 08-25-2024 ambulatory [facility] Facility:[facility] Start: 08-16-2024 End: 08-16-2024 ambulatory [facility] -Pulmonary Rehab Start: 08-16-2024 End: 08-16-2024 Discharged Recurring [facility] -Pulmonary Rehab Work Phone: Start: 08-05-2024 End: 08-05-2024 Patient encounter procedure Maria Luisa ESPAÑA -[place] [facility] Work Phone: Start: 08-05-2024 End: 08-05-2024 ambulatory [facility] Work Phone: Start: 08-04-2024 Registered Rec[facility]ring [facility] ulmonary Rehab Work Phone: Start: 07-16-2024 End: 07-17-2024 ambulatory [facility] Work Phone: Start: 07-16-2024 End: 07-17-2024 Discharged Recurring [facility] -Pulmonary Rehab Work Phone: Start: 07-15-2024 Encounter for genera l adult medical examination without abnormal findings [facility] Start: 07-14-2024 Registered [facility] ulmonary Rehab Work Phone: Start: 07-08-2024 End: 07-08-2024 ambulatory [facility] Work Phone: Start: 07-08-2024 End: 07-08-2024 Patient encounter procedure [facility] -Pulmonary Rehab Work Phone: Start: 07-08-2024 End: 07-08-2024 ambulatory [facility] Facility:[facility] Start: 04-23-2024 End: 04-23-2024 Emergency department patient visit [facility] Start: 02-10-2024 End: 02-10-2024 Emergency department patient visit FELIZ JOHNSONRHONA [facility] Start: 01-08-2024 End: 01-09-2024 ambulatory RITU OLIVA [facility] Start: 11-27-2023 End: 11-27-2023 Emergency department patient visit JUDITH WEAVER [facility] Start: 07-17-2023 End: 07-17-2023 [facility] Start: 08-07-2022 End: 08-07-2022 Emergency department patient visit [facility] Facility:A Start: 08-07-2022 End: 08-07-2022 Emergency department patient visit ELIEZER PRO MD [facility] Start: 03-02-2022 End: 03-04-2022 ambulatory NANCY PINEDA Facility:A Start: 01-08-2022 Emergency department patient visit DR JUDITH WEAVER [facility] Start: 06-13-2021 Non-patient / Non-visit Dr. Ghassan Munoz Work Phone: [facility] Start: 06-12-2021 Non-patient / Non-visit Dr. Ghassan Munoz Work Phone: [facility] Start: 06-11-2021 End: 06-13-2021 Evaluation and management of inpatient Dr. Ghassan Munoz Work Phone: [facility]-Intensive Care Unit Start: 06-01-2021 End: 06-01-2021 Emergency department patient visit Dr. Ghassan Munoz Work Phone: [facility]-Emergency Department Start: 05-27-2021 End: 05-27-2021 Emergency department patient visit Dr. Ghassan Munoz Work Phone: [facility]-Emergency Department Start: 05-22-2021 End: 05-22-[address] Ghassan Munoz Work Phone: [facility]-Laboratory, Specimen Start: 05-22-2021 End: 05-22-[address] Ghassan Munoz Work Phone: [facility] Start: 05-08-2021 End: 05-08-[address] Ghassan Munoz Work Phone: [facility] Start: 02-05-2021 End: 02-05-[address] Ghassan Munoz Work Phone: [facility] Procedures Date Procedure Procedure Detail Performing Clinician Start: 08-31-2024 Plain chest X-ray [facility] Start: 08-31-2024 [facility] Author Start: 09-01-2024 Walking distance 6 minutes [facility] Start: 08-31-2024 Measurement of respiratory function [facility] Start: 08-31-2024 Verification routine [facility] Start: 08-31-2024 Admission procedure [facility] Start: 08-31-2024 Hospital admission, emergency, from emergency room, medical nature [facility] Start: 08-31-2024 Continuous pulse oximetry [facility] Start: 08-31-2024 Dual pressure sponta neous ventilation support [facility] Start: 06-01-2021 Microscopic observat ion [Identifier] in Unspecified specimen by Gram stain Gram Stain [facility] Work Phone: Start: 06-01-2021 Respiratory Culture Respiratory Cult ure [facility] Work Phone: Measurement of respiratory function [facility] Patient Education [facility] Work Phone: Patient referral [facility] Work Phone: Walking distance 6 minutes [facility] Immunizations Immunization Date Immunization Notes Care Provider Piter oshea 12-25-[address] Ghassan Munoz Work Phone: [facility] Payers Date Payer Category Payer [employer] ( [employer] others) [id number] 2024 Self-pay [id number] 2022 [employer] ( [employer] others) [id number] 2006 Medicare [id number] 1945 Unknown [id number] 1945 Unknown [id number] .627 1945 Unknown [id number] .651 1945 Unknown [id number] .651 1945 Unknown [id number] .651 1945 Unknown [id number] .651 1945 Unknown [id number] .651 Unknown [facility] AUTH [facility] ED SEE NOTE [id number] Unknown [id number] Unknown [id number] Unknown [id number] .462 Unknown [id number] .462 Unknown [id number] .462 Unknown [id number] .462 Unknown [id number] .462 Social History Date Type Detail Facility Start: 05-27-2021 End: 06-12-2021 Tobacco smoking status NHIS Unknown if ever smoked [facility] Work Phone: Start: 03-16-2019 None [facility] Start: 03-16-2019 Spouse/ Signif icant Other [facility] Start: 03-16-2019 Cigarettes [facility] Start: 1945 Sex Assigned At Male W [facility] Tobacco smoking status [facility] Start: 07-08-2024 End: 08-31-2024 Tobacco smoking status NHIS Ex-smoker (finding) [facility] Functional Status Date Assessment Result Facility 08-07-2022 Functional Status Assistive Device None A [facility] 06-13-2021 Functional status Chair [facility] Work Phone: Mental Status Date Assessment Result Facility 08-31-2024 Cognitive function Voice[facility]Name [facility] Work Phone: 06-13-2021 Cognitive function Voice[facility]Name [facility] Work Phone: Clinical Notes 01-07-2022 to 08-31-2024 Note Date & Type Note Facility 08-31-2024 History and physi miles note [facility] 08-31-2024 Radiology Diagnostic study note [facility] Imaging Services [address] [place], [place] [address] Chest 1 View (Portable) MR#: [id number] Acct: [id number] Name: BRYN AYON Rep #: [id number] : 1945 M 78 From: Mattie Davenport MD PCP: [facility] Status: REG ER Study:Chest 1 View (Portable) Date of Exam: 08/31/24 Exam# [id number] Ordering Dr: Shira Berger DO PROCEDURE: CHEST 1 VIEW (PORTABLE) 08/31/2024 REASON FOR EXAM: DYSPNEA TECHNIQUE: Frontal view of the chest. COMPARISON: 06/11/2021 FINDINGS: Normal heart size. Status post AVR. Unremarkable cardiac device. Mild interstitial prominence has developed, possibly edema. No consolidation, effusion or pneumo thorax. RAD/Chest 1 View (Portable) IMPRESSION: Possible mild interstitial edema. Consider follow up imaging. 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 August 05, 025 8:09am [facility] Work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
--- OUTSIDE RECORDS SUMMARY | 2024-08-31 05:42 | XMS RPT_ITS | CCD ---
Author Organization [facility] Care Team Providers Care Lisw Name Role Phone Dr. Ghassan Munoz Primary Care Provider [phone] Dr. Ghassan Munoz Referring Provider [phone] MADAY Ceron Attending Provider [phone] Ghassan Munoz Primary Care Provider [phone] Dr. Ghassan Munoz Referring Provider [phone] MADAY Ceron Attending Provider [phone] [place] Primary Care Provider UnavailDr. Brandon Feliciano Emergency Provider Dr. Bryan Gonzalez Admit Provider Dr. Magno Sheppard Attending Provider Dr. Magno Sheppard Other Provider DR JUDITH WEAVER Admitting Unavailable DR JUDITH WEAVER Attending Unavailable DR JUDITH WEAVER Primary Care Unavailable [facility] Primary Care Physician [facility] Primary Care Unavailable ELIEZER PRO MD [...] Admitting Unavailable JUDITH WEAVER Primary Care Unavailable JUDIHT WEAVER Attending Unavailable FELIZ CAMPA Primary Care Unavailable FELIZ CAMPA Attending Unavailable FELIZ CAMPA [facility] [place] [facility] [place] [facility] Referring Provider Unavailable DAVID JONES Attending Provider [phone] DAVID JONES Referring Provider [phone] DAVID JONES Attending Provider [phone] DAVID JONES Referring [place] [facility] [place] [facility] [place] Referring Provider Unavailable Katlyn MAIL ROOM CLERK-C, Maria Luisa Attending [place] [facility] [place] Unavailable RUDI WALLS Attending Unavailable RUDI WALLS Ref[facility] Referring Unavailable Katlyn MAIL ROOM CLERK, Maria Luisa Attending [facility] Un[facility] Unavailable Katlyn MAIL ROOM CLERK, Maria Luisa Attending Unavailable Katlyn MAIL ROOM CLERK, Maria Luisa Referring [facility] Unavailable RUDI WALLS Attending Unavailable RUDI WALLS Referring [facility] Unavailable RUDI WALLS Attending Unavailable TITI, RUDI Referring Unavailable Katlyn MAIL ROOM CLERK-C, Maria Luisa Referring Provider Dr. Michael Berger DO Emergency Provider Dr. Scout Lebron MD Attending Provider Dr. [...] 2019 3:49pm Start: 03-16-2019 End: 08-05-2024 Ipratropium Latonia 1 SPRAY spray,non-aerosol Discontinued 2 NMA NASAL [...] June 08, 2019 12:00am polyethylene glycol 3350 64857 mg powder for oral solution (1 source) [...] 05, 2016 12:00am August 05, 2024 8:17am [facility] benzonatate 100 mg oral capsule [...] 2 mg/ml oral solution (20 sources) Uncompetitive G-eatrpp-Q-aspartate Receptor Antagonist, Sigma-1 Agonist, alpha-1 Adrenergic Agonist Start: 03-16-2019 End: 06-08-2019 take 1 mL by mouth every six hours Qaswumxflwqcz-Qf-Bamcynfhuvo Discontinued 5 ML PO EVERY 6 HOURS March 16, 2019 3:49pm March 18, 2019 12:45pm Start: 03-16-2019 End: 06-08-2019 take 1 mL by mouth every six hours as needed for cough Alztfprbavarp-Do-Epuyslzartn 473 ML liqu id Discontinued 5 mL [...] 12:00am August 05, 2024 8:21am allergies nystatin 628320 unt/ml oral suspension (10 sources) Polyene Antifungal [...] days 10 mg daily 3 days Tiotropium Latonia (20 sources) Anticholinergic Start: 06-10-2019 End: 08-05-2024 Tiotropium Latonia 2.5 mcg/actuation mist Discontinued 2 NMA INHALATION TWICE A DAY June 10, 2019 10:59am August 05, 2024 8:20am copd Start: 06-10-2019 End: 08-05-2024 Tiotropium Latonia 2.5 mcg/actuation mist Discontinued 2 NMA INHALATION TWICE A DAY June 10, 2019 10:59am August 05, 2024 8:20am Start: 06-10-2019 Tiotropium Bro mide 2.5 mcg/actuation mist Active 2 NMA INHALATION TWICE A DAY June 10, 2019 10:59am Start: 06-10-2019 take 1 puff(s) by in halation twice daily Tiotropium Latonia Active 2 PUFF INHALATION TWICE A DAY June 10, 2019 10:59am Start: 03-16-2019 End: 06-10-2019 Tiotropium Latonia 4 GM mist Discontinued 2 NMA INHALATION DAILY March 16, 2019 4:14pm June 10, 2019 10:59am copd Start: 03-16-2019 End: 06-10-2019 Tiotropium Latonia 4 GM mist Discontinued 2 NMA INHALATION DAILY March 16, 2019 4:14pm June 10, 2019 10:59am Start: 03-16-2019 End: 06-10-2019 take 1 puff(s) by inhalation once daily Tiotropium Latonia Discontinued 2 PUFF INHALATION DAILY March 16, 2019 4:14pm June 10, 2019 10:59am Start: 12-24-2018 End: 03-16-2019 take 1 puff(s) by inhalation once daily Tiotropium Latonia (Spiriva Respimat) 2.5 mcg/actuation mist Discontinued 2 PUFF INHALATION DAILY December 24, 2018 9:57am March 16, 2019 4:14pm Start: 12-24-2018 End: 03-16-2019 take 2.5 ug by inhalation once daily Tiotropium Latonia (Spiriva Respimat) 2.5 mcg/actuation mist Discontinued 2 NMA INHALATION DAILY 4 December 24, 2018 1:00am March 16, 2019 4:14pm Chronic obstructive pulmonary disease, unspecified Start: 12-24-2018 End: 03-16-2019 take 2.5 ug by inhalation once daily Tiotropium Latonia (Spiriva Respimat) 2.5 mcg/actuation mist Discontinued 2 [...] 04-23-2024 Chronic Other aftercare (1 source) Other shelter (current) drug therapy; Translations: [Other shelter (current) drug therapy] Onset: 04-23-2024 Episodic Other aftercare (1 source) half-way (current) use of aspirin; Translations: [half-way (current) use of aspirin] Onset: 04-23-2024 Episodic Other aftercare (1 source) terminal superintendent (current) use of oral hypoglycemic drugs; Translations: [half-way (current) use of oral hypoglycemic drugs] Onset: 04-23-2024 Episodic Other aftercare (1 source) half-way (current) use of insulin; Translations: [half-way (current) use of insulin] Onset: 04-23-2024 Episodic [...] Auto (Unsp spec) [#/Vol] 2.96 10*3/uL 0.83-4.51 [facility] Absolute neutrophil countOrd ered By: Michael Berger on 08-31-2024 Neutrophils (Bld) [#/Vol] 6.1 10*3/uL 2.0-7.7 [facility] Anion gap in Serum or Plasma Ordered By: Michael Berger on 08-31-2024 Anion gap [Moles/Vol] 13 mmol/L 07-01 [facility] Automated lymphocyte count a s percentage of total leukocytesOrdered By: Michael Berger on 08-31-2024 Lymphocytes/100 WBC Auto (Unsp spec) 28.3 % 19-41 [facility] BUN/creatinine ratioOrdered By: Michael Berger on 08-31-2024 Urea nitrogen/Creatinine [Mass ratio] 21.3 mg/mg High 10-20 [facility] Basophil percentageOrdered B y: Michael Berger on 08-31-2024 Basophils/100 WBC (Bld) 0.8 % 0-1 [facility] Carbon dioxide, total [Moles /volume] in Central venous bloodOrdered By: Michael Berger on 08-31-2024 CO2 [Moles/Vol] 25.3 mmol/L 21.0-32.0 [facility] Chloride assayOrdered By: Shira Berger on 08-31-2024 Chloride [Moles/Vol] 103 mmol/L 98-108 [facility] Eosinophil percentageOrdered By: Michael Berger on 08-31-2024 Eosinophils/100 WBC (Bld) 3.1 % 0-5 [facility] Erythrocyte distribution wid th ratioOrdered By: Michael Berger on 08-31-2024 Erythrocyte distribution width (RBC) [Ratio] 14.3 % 11.6-14.6 [facility] Erythrocyte distribution wid th standard deviationOrdered By: Michael Begrer on 08-31-2024 Erythrocyte distribution width (RBC) [Ratio] 48.5 fl High 35.1-43.9 [facility] Glomerular filtration rate ( GFR) estimation/1.73 sq m using serum, plasma, or whole bOrdered By: Michael Berger on 08-31-2024 GFR/1.73 sq M.predicted among non-blacks MDRD (S/P/Bld) [Vol rate/Area] 35 mL/min/{1.73_m2} Low >60 [facility] Comment on above: mL/min/1.73m2 CKD-EP I Creatinine Equation (2020) Hematocrit Auto (Bld) [Volum e fraction]Ordered By: Michael Berger on 08-31-2024 Hematocrit (Bld) [Volume fraction] 47.2 % 40-54 [facility] Hemoglobin measurementOrdere d By: Michael Berger on 08-31-2024 Hemoglobin (Bld) [Mass/Vol] 15.3 g/dL 13.0-16.5 [facility] Immature granulocytes/100 WB C Auto (Bld)Ordered By: Michael Berger on 08-31-2024 Immature granulocytes/100 WBC (Bld) 0.600 % 0.0-0.9 [facility] Comment on above: IG% - Immature Granu locytes (promyelocytes, myelocytes and metamyelocytes) > 1% indicates that a LEFT SHIFT is Present. MCV (mean corpuscular volume ) determinationOrdered By: Michael Berger on 08-31-2024 MCV (RBC) [Entitic vol] 92.9 fL 80-94 [facility] Magnesium measurement (mass/ volume)Ordered By: Michael Berger on 08-31-2024 Magnesium (Unsp spec) [Mass/Vol] 2.1 mg/dL 1.5-2.2 [facility] Mean corpuscular hemoglobin (MCH) determinationOrdered By: Michael Berger on 08-31-2024 MCH (RBC) [Entitic mass] 30.1 pg 27.0-32.0 [facility] Mean corpuscular hemoglobin concentration (MCHC) determinationOrdered By: Michael Berger on 08-31-2024 MCHC (RBC) [Mass/Vol] 32.4 g/dL 32-36 [facility] Mean platelet volume determi nationOrdered By: Michael Berger on 08-31-2024 Platelet mean volume (Bld) [Entitic vol] 8.9 fL 6.2-12.0 [facility] Monocyte percentageOrdered B y: Michael Berger on 08-31-2024 Monocytes/100 WBC (Bld) 9.3 % 0-10 [facility] Natriuretic peptide.B prohor jesus N-Terminal [Mass/volume] in Serum or PlasmaOrdered By: Michael Berger on 08-31-2024 Natriuretic peptide.B prohormone N-Terminal [Mass/Vol] 2407 pg/mL High <1800 [facility] Comment on above: Heart Failure Unlike ly: < 300 pg/mLHeart Failure Likely< 50 Years: > 450 pg/mL50-75 Years: > 900 pg/mL>75 Years: > 1800 pg/mL Neutrophil percentageOrdered By: Michael Berger on 08-31-2024 Neutrophils/100 WBC (Bld) 57.9 % 47-70 [facility] Nucleated red blood cell per centageOrdered By: Michael Berger on 07-15-2025 Nucleated RBC/100 WBC (Bld) [Ratio] 0 % 0-5 [facility] Platelet countOrdered By: Shira Berger on 08-31-2024 Platelets (Bld) [#/Vol] 230 10*3/uL 150-450 [facility] Potassium measurement (mass/ volume)Ordered By: Michael Berger on 08-31-2024 Potassium (Unsp spec) [Mass/Vol] 4.5 mmol/L 3.3-5.1 [facility] RBC Auto (Bld) [#/Vol]Ordere d By: Michael Berger on 08-31-2024 RBC (Bld) [#/Vol] 5.08 10*6/uL 4.6-6.2 [facility] Serum creatinine measurement (mass/volume)Ordered By: Michael Berger on 08-31-2024 Creatinine [Mass/Vol] 1.92 mg/dL High 0.70-1.20 [facility] Serum glucose measurement (m ass/volume)Ordered By: Michael Berger on 08-31-2024 Glucose [Mass/Vol] 156 mg/dL High 70-99 [facility] Serum or plasma calcium gilda urement (mass/volume)Ordered By: Michael Berger on 08-31-2024 Calcium [Mass/Vol] 9.8 mg/dL 7.6-11.0 [facility] Serum or plasma urea nitroge n measurement (mass/volume)Ordered By: Michael Berger on 08-31-2024 Urea nitrogen [Mass/Vol] 41 mg/dL High 4-19 [facility] Sodium levelOrdered By: Connor Berger on 08-31-2024 Sodium [Moles/Vol] 141 mmol/L 133-145 [facility] White blood cell (WBC) count Ordered By: Michael Berger on 08-31-2024 WBC (Bld) [#/Vol] 10.5 10*3/uL 4.4-11.0 [facility] Pulmonary Visit Reporton Pulmonary Visit Report [facility] Pul[facility] Medicine of [address] [place], [place] [address] OFFICE VISIT Date of Service: 08/05/24 MR#: [id number] Acct: [id number] Name: BRYN AYON Rep #: [id number] : 1945 Provider: TACO Potts Age/Sex: 78/M [place] [facility] Status: Signed Assessment and Plan Assessment and [...] Additional Comments: This note was generated with Message Busation software. It may contain incorrect words, spelling, [...] nodule. He has been following with the [place] system regarding the lung nodule. He was [...] Pressure Locati (more content not included)... Normal [facility] [place] - History AND Physicalon 07-08-2024 [place] - History & Physical [facility] Pulmonary Rehab Reports [address] [place] [address] [place] - History Physical MR#: [id number] Acct: [id number] Name: BRYN AYON Rep #: [id number] : 1945 78 From: Gerardo Perkins BS, RVT PCP: [facility] History of Present Illness General Arrival date:: 07/08/24 Arrival time:: 13:30 Date of Referral:: 06/29/24 Date of Evaluation: 07/08/24 Referring Physician: [place] Primary Diagnosis: COPD History of Present Pulmonary [...] Do you have a Healthcare Power of Boom Tender?: Yes Living Will: Yes Advance Directives Information [...] of c (more content not included)... Normal [facility] [place] - Individual Treatment Pl anon 07-08-2024 [place] - Individual Treatment Plan [facility] Pulmonary Rehab Reports [address] [place] [address] [place] - Individual Treatment Plan MR#: [id number] Acct: [id number] Name: BRYN AYON Rep #: [id number] : 1945 78 From: Gerardo Perkins BS, RVT PCP: [facility] General Information2 General Information Admitting Diagnosis: COPD PFT FEV1:: 56 FVC:: 63 FEV1/FVC%:: 88 Personal Learning Style/Barriers Personal Learning Style:: Audio/Visual Barriers to Learning: None Education/Goals [place] Patient Goals: Increase muscle strength: Initial Assessment, [...] Exercise Modalities: Treadmill, Rower, [employer]ird[employer] AD-7, [employer] Stepper, [employer] Pro-II Ergometer and [employer] Lateral [place] Intensity: 60-80% of age predicted maximum heart [...] derpression o (more content not included)... Normal [facility] CHEST 2 VIEWSon 04-23-2024 CHEST 2 VIEWS [place] [address] Patient: BRYN AYON Phone#: : 1945 Age: 78 Gender: M Pt. Type: ER Account: [id number] Location: [facility] Ordering: FELIZ CAMPA Exam Date: 04/23/2024/11:51 Family Phys: Charge Code: [id number] Physician: Sampson Order #: [id number] Dose#: PROCEDURE: X-RAY CHEST 2 VIEWS COMPARISON: [facility], XR, CHEST 1 VIEW, 01/08/2024, 17:23. [facility], XR, CHEST 1 VIEW, 02/10/2024, 13:49. [...] Garcia MD on 04/23/2024 at 12:14 Normal [facility] ED MED ADMINISTRATION DETAIL on 04-23-2024 ED MED ADMINISTRATION DETAIL [employer] Medication Administration Record [address] [address] [id number] 04/23/2024 Patient: BRYN AYON Sex: Male : 1945 Age: 78y MEASUREMENTS: Wt: 80.7 kg, Ht/Hector: 68.0 in, BMI: 27.06 ALLERGIES: No known drug allergies Medication Ordered Medication Administration Date/Time 1 of 1 Normal [facility] ED NURSES CLINICAL NOTEon ED NURSES CLINICAL NOTE Nurse Narrative Nurse Clinical Narrative [address] [address] [id number] 04/23/2024 Patient: BRYN AYON Sex: Male : 1945 Age: 78y Primary Insurance: MEDICARE OUTPATIENT Policy Number: [id number] Subscriber: Other Secondary Insurance: [employer] OUTPATIENT Policy Number: [id number] Subscriber: Other Disposition: Discharge Disposition Decision Time: [...] R.N. Implantation (more content not included)... Normal [facility] ED ORDER SHEET (CPOE ONLY)on 04-23-2024 ED ORDER SHEET (CPOE ONLY) Order Sheet Order Sheet [address] [address] [id number] 04/23/2024 Patient: BRYN AYON Sex: Male : [...] (04/23/2024 12:45 EST)] 1 of 1 Normal [facility] ED PHYSICIAN CLINICAL REPORT on 04-23-2024 ED PHYSICIAN CLINICAL REPORT Narrative Physician Clinical Narrative [address] [address] [id number] 04/23/2024 Patient: BRYN AYON Sex: Male : 1945 Age: 78y Primary Insurance: MEDICARE OUTPATIENT Policy Number: [id number] Subscriber: Other Secondary Insurance: [employer] OUTPATIENT Policy Number: [id number] Subscriber: Other Disposition: Discharge Disposition Decision Time: [...] Date: 04/23/2024 12:14:00 EST MsgRcvd: 04/23/2024 12:18 [place] [address] 3 of 5 Narrative Patient: BRYN AYON Phone#: : 1945 Age: 78 Gender: M Pt. Type: ER Account: [id number] Location: [facility] Ordering: EFLIZ CAMPA Exam Date: 04/23/2024/11:51 Family Phys: Charge Code: [id number] Physician: Sampson Order #: [id number] Dose#: PROCEDURE: X-RAY CHEST 2 VIEWS COMPARISON: [facility], XR, CHEST 1 VIEW, 01/08/2024, 17:23. [facility], XR, CHEST 1 VIEW, 02/10/2024, 13:49. INDICATIONS: Cough. FINDINGS: LUNGS: Normal. No significant pulmonary parenchymal abnormalities. VASCULATURE: Normal. Unremarkable pulmonary vasculature. CARDIAC: Left chest wall cardiac device with single lead. Aortic valve stent present. MEDIASTINUM: Mediastinal surgical clips present. Aortic arch calcifications. PLEURA: Normal. No effusion or pleural thickening. BONES: Degenerative changes o (more content not included)... Normal [facility] ED SUPER BILLon 04-23-2024 ED SUPER BILL [address] [place] [address] [id number] 04/23/2024 Patient: BRYN AYON Sex: Male : 1945 Age: 78y Item Professional Category Description Facility Code Code Quantity Fee Total Nurse/E/M EMERGENCY 834901 1 $0.00 $0.00 DEPARTMENT VISIT MODERATE SEVERITY (10396-83) Grand Total $0.00 Providers Feliz Campa D.O. Chief Complaint WHEEZING. Principal Diagnosis COPD. ICD-10 Codes 1 of 2 [facility] J44.9: Chronic obstructive pulmonary disease, unspecified 2 of 2 [facility] ED VISIT SUMMARYon ED VISIT SUMMARY Visit Overview Visit Overview [address] [place] [address] [id number] 04/23/2024 Patient: BRYN AYON Sex: Male : [...] CLINICAL IMPRESSION COPD 4 of 4 Normal [facility] ED VITALS FLOW SHEETon 04-23 ED VITALS FLOW SHEET Vitals Vital Sign Flow Sheet [address] [address] [id number] 04/23/2024 Patient: BRYN AYON Sex: Male : 1945 Age: 78y Measurements Wt: 80.7 kg, Ht/Hector: 68.0 in, BMI: 27.06 Measured Time BP MAP HR RR O2Sat ETCO2 Temp Pain GCS RTS 12:45 04/23/2024 104/54 71 89 18 97% 97.6 F 0 11:49 04/23/2024 147/63 91 60 18 92% 97.6 F 0 1 of 1 Normal [facility] CBC + DIFFon 02-10-2024 Baso # 0.03 x10EE3/UL Normal 0.00 - 0.10 [facility] Comment on above: Performed By: #### 2 58944 #### [facility],[address] [place] [address] Basophils/100 WBC (Bld) 0.4 % Normal 0.0 - 2.0 [facility] Comment on above: Performed By: #### 2 81044 #### [facility],[address] [place] [address] CBC + DIFF Normal [facility] Comment on above: Result Comment: CBC- COMPLETE BLOOD COUNT Performed By: #### 2 42553 #### [facility],[address] [place] [address] EO # 0.11 x10EE3/UL Normal 0.00 - 0.50 [facility] Comment on above: Performed By: #### 2 61878 #### [facility],[address] [place] [address] Eosinophils/100 WBC (Bld) 1.4 % Normal 0.0 - 7.0 [facility] Comment on above: Performed By: #### 2 28810 #### [facility],[address] [place] [address] Erythrocyte distribution width (RBC) [Ratio] 14.2 % Normal 12.0 - 15.6 [facility] Comment on above: Performed By: #### 2 44801 #### [facility],[address] [place] [address] Hematocrit (Bld) [Volume fraction] 47.9 % Normal 40.0 - 52.0 [facility] Comment on above: Performed By: #### 2 30107 #### [facility],[address] [place] [address] Hemoglobin (Bld) [Mass/Vol] 16.2 g/dL Normal 13.0 - 17.5 [facility] Comment on above: Performed By: #### 2 44071 #### [facility],[address] [place] [address] Lymph # 1.38 x10EE3/UL Normal 0.80 - 2.80 [facility] Comment on above: Performed By: #### 2 00152 #### [facility],[address] [place] [address] Lymphocytes/100 WBC (Bld) 16.9 % Low 20.0 - 45.0 [facility] Comment on above: Performed By: #### 2 89711 #### [facility],[address] [place] [address] MANUAL DIFF N/A Normal [facility] Comment on above: Performed By: #### 2 46310 #### [facility],[address] [place] [address] MCH (RBC) [Entitic mass] 31 pg Normal 27 - 33 [facility] Comment on above: Performed By: #### 2 25061 #### [facility],[address] [place] [address] MCHC 34 X10 3 Normal 32 - 36 [facility] Comment on above: Performed By: #### 2 25130 #### [facility],[address] [place] [address] MCV (RBC) [Entitic vol] 92 fL Normal 81 - 98 [facility] Comment on above: Performed By: #### 2 40314 #### [facility],[address] [place] [address] Sharp # 0.73 x10EE3/UL Normal 0.20 - 1.00 [facility] Comment on above: Performed By: #### 2 42119 #### [facility],[address] [place] [address] MONOS % 9.0 % Normal 0.0 - 10.0 [facility] Comment on above: Performed By: #### 2 45262 #### [facility],[address] [place], [place] [address] Morphology Alvaro (Bld) [Interp] REVIEWED Normal [facility] Comment on above: Performed By: #### 2 96397 #### [facility],[address] [place] [address] Neut # 5.90 x10EE3/UL Normal 1.50 - 7.10 [facility] Comment on above: Performed By: #### 2 09486 #### [facility],[address] [place] [address] Neutrophils/100 WBC (Bld) 72.3 % Normal 46.0 - 76.0 [facility] Comment on above: Performed By: #### 2 11523 #### [facility],[address] [place] [address] PLATELET 260 x10EE3/UL Normal 150 - 450 [facility] Comment on above: Performed By: #### 2 91843 #### [facility],[address] [place] [address] Platelet mean volume (Bld) [Entitic vol] 6.7 fL Normal 6.4 - 10.5 [facility] Comment on above: Result Comment: AUTO MATED DIFFERENTIAL Performed By: #### 2 76503 #### [facility],[address] [place] [address]015 RBC 5.24 x 10EE6/UL Normal 4.50 - 6.00 [facility] Comment on above: Performed By: #### 2 73675 #### [facility],[address] [place] [address] WBC 8.2 x 10EE3/UL Normal 4.5 - 10.8 [facility] Comment on above: Performed By: #### 2 03097 #### [facility],[address] [place] [address] CHEST 1 VIEWon 02-10-2024 CHEST 1 VIEW [place] [address] Patient: BRYN AYON Phone#: : 1945 Age: 78 Gender: M Pt. Type: ER Account: [id number] Location: [facility] Ordering: FELIZ CAMPA Exam Date: 02/10/2024/13:49 Family Phys: Charge Code: [id number] Physician: Sampson Order #: [id number] Dose#: PROCEDURE: X-RAY CHEST 1 VIEW COMPARISON: [facility], CHEST 1 VIEW, 01/08/2024, 17:23. [...] Lujan MD on 02/10/2024 at 14:20 Normal [facility] CMP with eGFRon 02-10-2024 AGE 78 years Normal [facility] Comment on above: Performed By: #### 2 23183 ####[facility],[address] [place] [address] Albumin [Mass/Vol] 3.9 g/dL Normal 3.4 - 5.0 [facility] Comment on above: Performed By: #### 2 92667 ####[facility],[address] [place] [address] Albumin/Globulin [Mass ratio] 1.1 {ratio} Normal 0.9 - 1.6 [facility] Comment on above: Performed By: #### 2 11608 ####[facility],[address] [place] [address] ALK PHOS 113 U/L Normal 46 - 116 [facility] Comment on above: Performed By: #### 2 99771 ####[facility],[address] [place] [address] ALT [Catalytic activity/Vol] 34 U/L Normal 16 - 63 [facility] Comment on above: Performed By: #### 2 65556 ####[facility],[address] [place] [address] 04504 Anion gap [Moles/Vol] 13 mmol/L Normal 10 - 20 [facility] Comment on above: Performed By: #### 2 49175 ####[facility],[address] [place] [address] 91952 AST [Catalytic activity/Vol] 29 U/L Normal 15 - 37 [facility] Comment on above: Performed By: #### 2 68435 ####[facility],[address] [place] [address] 55170 B/C RATIO 12 ratio Normal 0 - 30 [facility] Comment on above: Performed By: #### 2 08930 ####[facility],[address] [place] [address] 88033 Bilirubin [Mass/Vol] 1.3 mg/dL High 0.2 - 1.0 [facility] Comment on above: Performed By: #### 2 45955 ####[facility],[address] [place] [address] 44506 Calcium [Mass/Vol] 9.5 mg/dL Normal 8.5 - 10.1 [facility] Comment on above: Performed By: #### 2 75000 ####[facility],[address] [place] [address] 52926 Chloride [Moles/Vol] 101 mmol/L Normal 98 - 107 [facility] Comment on above: Performed By: #### 2 09333 ####[facility],[address] [place] [address] 75667 CMP with eGFR Normal [facility] Comment on above: Result Comment: COMP REHENSIVE METABOLIC PANEL Performed By: #### 2 73864 ####[facility],[address] [place] [address] 34227 CO2 [Moles/Vol] 31.4 mmol/L Normal 21.0 - 32.0 [facility] Comment on above: Performed By: #### 2 77019 ####[facility],[address] [place] [address] 42886 Creatinine [Mass/Vol] 2.49 mg/dL High 0.70 - 1.30 [facility] Comment on above: Performed By: #### 2 45585 ####[facility],[address] [place] [address] 84974 eGFR 25 ML/MINUTE Low 60 - 999 [facility] Comment on above: Performed By: #### 2 14927 ####[facility],[address] [place] [address] 10415 eGFR(AA) 30 ML/MINUTE Low 60 - 999 [facility] Comment on above: Result Comment: ACCO RDING TO THE NATIONAL KIDNEY DISEASE EDUCATION PROGRAM(NKDE), A NORMAL eGFR IS A VALUE GREATER THAN OR EQUAL TO 60 ML/MIN/1.73 SQ METERS. CHRONIC KIDNEY DISEASE: <60mL/MIN/1.73 SQ METERS KIDNEY FAILURE: <15mL/MIN/1.73 SQ METERS THIS TEST SHOULD ONLY BE USED FOR PATIENTS 18 YEARS OF AGE AND OLDER. Performed By: #### 2 77433 ####[facility],[address] [place] [address] 34599 Globulin (S) [Mass/Vol] 3.5 g/dL Normal 1.5 - 3.8 [facility] Comment on above: Performed By: #### 2 18971 ####[facility],[address] [place] [address] 33917 Glucose [Mass/Vol] 166 mg/dL High 74 - 106 [facility] Comment on above: Performed By: #### 2 57496 ####[facility],[address] [place] [address] 65791 Potassium [Moles/Vol] 5.0 mmol/L Normal 3.5 - 5.1 [facility] Comment on above: Performed By: #### 2 07104 ####[facility],[address] [place] [address] 18779 Protein [Mass/Vol] 7.4 g/dL Normal 6.4 - 8.2 [facility] Comment on above: Performed By: #### 2 50384 ####[facility],[address] [place] [address] Sodium [Moles/Vol] 140 mmol/L Normal 136 - 145 [facility] Comment on above: Performed By: #### 2 98119 ####[facility],[address] [place] [address] Urea nitrogen [Mass/Vol] 29 mg/dL High 7 - 18 [facility] Comment on above: Performed By: #### 2 31821 ####[facility],[address] [place], [place] [address] CORONAVIRUS (SARS) ANTIGEN T ESTon 02-10-2024 EXTERNAL QC DONE? YES Normal [facility] Comment on above: Performed By: #### 2 63687 #### [facility],[address] [place] [address] INTERNAL CONTROL PASS Normal [facility] Comment on above: Performed By: #### 2 03316 #### [facility],[address] [place] [address] SARS ANTIGEN Negative Normal NORMAL: NEGATIVE [facility] Comment on above: Performed By: #### 2 33062 #### [facility],[address] [place] [address] SEND TO ? NO Normal [facility] Comment on above: Result Comment: SARS -CoV-2 THIS TEST IS BEING USED UNDER THE FDA EUA PROCEDURE. THIS ASSAY HAS BEEN VALIDATED AT [facility] FOR USE WITH NASAL AND NASOPHARYNGEAL [...] PUBLIC HEALTH AUTHORITIES. Performed By: #### 2 04580 #### [facility],[address] [place] [address] ED MED ADMINISTRATION DETAIL on 02-10-2024 ED MED ADMINISTRATION DETAIL [employer] Medication Administration Record [address] [address] [id number] 02/10/2024 Patient: BRYN AYON Sex: Male : 1945 Age: 78y MEASUREMENTS: Wt: 89.4 kg, Ht/Hector: 68.0 in, BMI: 29.95 ALLERGIES: No known drug allergies Medication Ordered Medication Administration Date/Time 1 of 1 Normal [facility] ED NURSES CLINICAL NOTEon ED NURSES CLINICAL NOTE Nurse Narrative Nurse Clinical Narrative [address] [address] [id number] 02/10/2024 Patient: BRYN AYON Sex: Male : 1945 Age: 78y Disposition: Discharge to Home Disposition Decision Time: 16:34 02/10/2024 Departure Time: 16:52 02/10/2024 TRIAGE Triage time: 13:26 02/10/2024. Acuity: LEVEL 2. Chief Complaint: DIFFICULTY WALKING (dry mouth and broke out in a sweat). Onset. (15 minutes SIZE STAMPER). SEPSIS SCREEN: NEGATIVE. SIRS criteria negative. No [...] happened the last time he had a ND. Pt denies SOB or CP. Pt does [...] left a (more content not included)... Normal [facility] ED ORDER SHEET (CPOE ONLY)on 02-10-2024 ED ORDER SHEET (CPOE ONLY) Order Sheet Order Sheet [facility] [address] [place] [address] [place] [address] [id number] 02/10/2024 Patient: BRYN AYON Sex: Male : [...] 02/10/2024 Rhonda Sullivan Lemasters, D.O. R.N. R.NGuillaume [employer] 13:49 02/10/2024 13:51 02/10/2024 13:51 02/10/2024 Rhonda Sullivan Lemasters, D.O. R.N. R.NGuillaume 2 of 3 Order Sheet Vital signs every 15 13:49 02/10/2024 13:51 02/10/2024 13:51 02/10/2024 minutes Rhonda Sullivan Lemasters, D.O. R.N. R.NGuillaume IV [employer]ine [employer] 13:49 02/10/2024 13:51 02/10/2024 13:51 02/10/2024 Rhonda Sullivan Lemasters, D.O. R.N. R.NGuillaume [Electronically signed by Feliz Campa D.O. (02/10/2024 16:40 EST)] 3 of 3 Normal [facility] ED PHYSICIAN CLINICAL REPORT on 02-10-2024 ED PHYSICIAN CLINICAL REPORT Narrative Physician Clinical Narrative [address] [address] [id number] 02/10/2024 Patient: BRYN AYON Sex: Male : [...] Narrative 02/10/2024 (more content not included)... Normal [facility] ED SUPER BILLon 02-10-2024 ED SUPER BILL [address] [address] [id number] 02/10/2024 Patient: BRYN AYON Sex: Male : 1945 Age: 78y Item Professional Category Description Facility Code Code Quantity Fee Total Nurse/E/M EMERGENCY 032729 1 $0.00 $0.00 DEPARTMENT VISIT MODERATE SEVERITY (18463-87) Grand Total $0.00 Providers Feliz Campa D.O. Chief Complaint Dry mouth and diaphoresis. Principal Diagnosis Weakness. ICD-10 Codes 1 of 2 [facility] R53.1: Weakness 2 of 2 Normal [facility] ED VISIT SUMMARYon ED VISIT SUMMARY Visit Overview Visit Overview [address] [address] [id number] 02/10/2024 Patient: BRYN AYON Sex: Male : 1945 Age: 78y 02/10/2024 04:57 PM EST ED Arrival:13:28 02/10/2024 EST Status: Recent Travel:no Language:eng Adv Directive: Isolation Status: Ethnicity:N Fall Risk:risk Infectious Disease Exposure:no Measurements:5'8 / 172.7 Self-Harm Status:risk Sepsis Screen:negative cm 197.0 lb / 89.4 kg Chief Complaint:DIFFICULTY WALKING, (15 minutes SIZE STAMPER), and (dry mouth and broke out in [...] happened the last time he had a ND. Pt denies SOB or CP. Pt does [...] CLINICAL IMPRESSION WEAKNESS 4 of 4 Normal [facility] ED VITALS FLOW SHEETon 02-09 ED VITALS FLOW SHEET Vitals Vital Sign Flow Sheet [address] [address] [id number] 02/10/2024 Patient: BRYN AYON Sex: Male : [...] 97.7 F 7 2 of 2 Normal [facility] INFLUENZA VIRUS RAPID A/Bon 02-10-2024 INFLUENZA VIRUS [...] TO THREE DAYS. RESULT CRITICAL? NO Normal [facility] Comment on above: Performed By: #### 2 87384 ####[facility],[address] [place] [address] TROPONINon 02-10-2024 HS TROPONIN 32.6 pg/mL Normal 0.0 - 76.2 [facility] Comment on above: Performed By: #### 2 99839 #### [facility],[address] [place] [address] 10324 HS TROPONIN 41.3 pg/mL Normal 0.0 - 76.2 [facility] Comment on above: Performed By: #### 2 94299 #### [facility],[address] [place], [place] [address] CV VENOUS LEG RTon CV VENOUS LEG RT [place] [address] Patient: BRYN AYON Phone#: : 1945 Age: 78 Gender: M Pt. Type: Out Account: [id number] Location: 010 Ordering: RITU OLIVA Exam Date: 01/09/2024/8:56 Family Phys: Charge Code: [id number] Physician: Sampson Order #: [id number] Dose#: PROCEDURE: VENOUS DOPPLER RT LEG COMPARISON: None. INDICATIONS: R/O DVT TECHNIQUE: Color duplex Doppler ultrasound evaluation analysis was performed in the usual manner. [employer]KER HELPER: HEATHER BACK RVT [facility] RISK FACTORS FOR VENOUS DISEASE: Other [...] PERONEAL V + GSV GASTROC SOLEAL V [employer]KER HELPER'S NOTES: FINDINGS: THROMBI: None visible. Continued Report - Page 2 of 2 Patient: BRYN AYON Phone#: : 1945 Age: 78 Gender: M Pt. Type: Out Account: [id number] Location: 010 Ordering: RITU OLIVA Exam Date: 01/09/2024/8:56 Family Phys: Charge Code: [id number] Physician: Sampson Order #: [id number] Dose#: COMPRESSIBILITY: Normal. OTHER: Negative. CONCLUSION: 1. No evidence of deep vein thrombus in the right lower extremity. Dictated by: Teresa Garcia MD on 01/09/2024 at 8:54 Approved by: Teresa Garcia MD on 01/09/2024 at 8:56 Normal [facility] ED MED ADMINISTRATION DETAIL on 01-09-2024 ED MED ADMINISTRATION DETAIL [employer] Medication Administration Record [address] [address] [id number] 01/08/2024 Patient: BRYN AYON Sex: Male : [...] 20:01 David Olvera R.N. 1 of 2 [employer] Medication Ordered Medication Administration Date/Time doxycycline IVPB [...] Lolis Yi R.N. 2 of 2 Normal [facility] ED NURSES CLINICAL NOTEon ED NURSES CLINICAL NOTE Nurse Narrative Nurse Clinical Narrative [address] [place] [address] [id number] 01/08/2024 Patient: BRYN AYON Sex: Male : [...] / PSYCH: (more content not included)... Normal [facility] ED ORDER SHEET (CPOE ONLY)on 01-09-2024 ED ORDER SHEET (CPOE ONLY) Order Sheet Order Sheet [place] [id number] [facility] [address] [id number] 01/08/2024 Patient: BRYN AYON Sex: Male : [...] (01/08/2024 23:54 EST)] 4 of 4 Normal [facility] ED PHYSICIAN CLINICAL REPORT on 01-09-2024 ED PHYSICIAN CLINICAL REPORT Narrative Physician Clinical Narrative [facility] [address] [place] [address] [id number] 01/08/2024 Patient: BRYN AYON Sex: Male : [...] - 17. (more content not included)... Normal [facility] [place] [address] [place] [address] [id number] 01/08/2024 Patient: BRYN AYON Sex: Male : 1945 Age: 78y Facility Professional Category Item Description Code Code Quantity Fee Total Nurse/E/M EMERGENCY 415986 1 $0.00 $0.00 DEPT VISIT HIGH SEVERITYFUNCJ (54482-72) Nurse/IV/IM/Infusion s Drip/IVPB initial 227373 1 $0.00 $0.00 (15785) Nurse/IV/IM/Infusion s Drip/IVPB seq 217947 1 $0.00 $0.00 (65076) Nurse/IV/IM/Infusion s IVP additional 526404 1 $0.00 $0.00 push (28340) Nurse/Procedures Respiratory 540848 1 $0.00 $0.00 therapy - inhalation (30466) Grand $0.00 Total Providers Krys Barr M.D. Eliezer Constantino D.O. 1 of 2 [facility] Chief Complaint DYSPNEA. Principal Diagnoses Acute dyspnea. Moderate congestive heart failure. Pneumonia. Cough hypoxia. Probable hypoxia. Probable acute cough. ICD-10 Codes R06.09: Other forms of dyspnea J18.9: Pneumonia, unspecified organism I50.9: Heart failure, unspecified [address] [facility] ED VISIT SUMMARYon ED VISIT SUMMARY Visit Overview Visit Overview [facility] [address] [place] [address] [id number] 01/08/2024 Patient: BRYN AYON Sex: Male : [...] COUGH PROBABLE HYPOXIA 4 of 4 Normal [facility] ED VITALS FLOW SHEETon 01-08 ED VITALS FLOW SHEET Vitals Vital Sign Flow Sheet [facility] [address] [place] [address] [id number] 01/08/2024 Patient: BRYN AYON Sex: Male : [...] 98.0 F 0 5 of 5 Normal [facility] BMP with eGFRon 01-08-2024 AGE 78 years Normal [facility] Comment on above: Performed By: #### 2 79631 #### [facility],[address] [place] [address] Anion gap [Moles/Vol] 13 mmol/L Normal 10 - 20 [facility] Comment on above: Performed By: #### 2 97909 #### [facility],[address] [place], [place] [id number] BMP with eGFR Normal [facility] Comment on above: Result Comment: BASI C METABOLIC PANEL Performed By: #### 2 68892 #### [facility],[address] [place], [place] [address] Calcium [Mass/Vol] 8.3 mg/dL Low 8.5 - 10.1 [facility] Comment on above: Performed By: #### 2 32049 #### [facility],[address] [place] [address] Chloride [Moles/Vol] 103 mmol/L Normal 98 - 107 [facility] Comment on above: Performed By: #### 2 39122 #### [facility],[address] [place] [address] 51387 CO2 [Moles/Vol] 28.5 mmol/L Normal 21.0 - 32.0 [facility] Comment on above: Performed By: #### 2 93885 #### [facility],[address] [place] [address] 93648 Creatinine [Mass/Vol] 2.05 mg/dL High 0.70 - 1.30 [facility] Comment on above: Performed By: #### 2 43566 #### [facility],[address] [place] [address] 44247 eGFR 31 ML/MINUTE Low 60 - 999 [facility] Comment on above: Performed By: #### 2 89466 #### [facility],[address] [place] [address] 71393 eGFR(AA) 38 ML/MINUTE Low 60 - 999 [facility] Comment on above: Result Comment: ACCO RDING TO THE NATIONAL KIDNEY DISEASE EDUCATION PROGRAM(NKDE), A NORMAL eGFR IS A VALUE GREATER THAN OR EQUAL TO 60 ML/MIN/1.73 SQ METERS. CHRONIC KIDNEY DISEASE: <60mL/MIN/1.73 SQ METERS KIDNEY FAILURE: <15mL/MIN/1.73 SQ METERS THIS TEST SHOULD ONLY BE USED FOR PATIENTS 18 YEARS OF AGE AND OLDER. Performed By: #### 2 51668 #### [facility],[address] [place] [address] 01283 Glucose [Mass/Vol] 168 mg/dL High 74 - 106 [facility] Comment on above: Performed By: #### 2 51586 #### [facility],[address] [place] [address] 02160 Potassium [Moles/Vol] 4.4 mmol/L Normal 3.5 - 5.1 [facility] Comment on above: Performed By: #### 2 70883 #### [facility],[address] [place] [address]687 Sodium [Moles/Vol] 140 mmol/L Normal 136 - 145 [facility] Comment on above: Performed By: #### 2 11608 #### [facility],[address] [place] [address] 61412 Urea nitrogen [Mass/Vol] 48 mg/dL High 7 - 18 [facility] Comment on above: Performed By: #### 2 73122 #### [facility],[address] [place] [address] CBC + DIFFon 01-08-2024 Baso # 0.03 x10EE3/UL Normal 0.00 - 0.10 [facility] Comment on above: Performed By: #### 2 14506 ####[facility],[address] [place] [address] Basophils/100 WBC (Bld) 0.3 % Normal 0.0 - 2.0 [facility] Comment on above: Performed By: #### 2 78772 ####[facility],[address] [place] [address] CBC + DIFF Normal [facility] Comment on above: Result Comment: CBC- COMPLETE BLOOD COUNT Performed By: #### 2 94152 ####[place] [address] EO # 0.14 x10EE3/UL Normal 0.00 - 0.50 [facility] Comment on above: Performed By: #### 2 90500 ####[place] [address] Eosinophils/100 WBC (Bld) 1.4 % Normal 0.0 - 7.0 [facility] Comment on above: Performed By: #### 2 47769 ####[place] [address] Erythrocyte distribution width (RBC) [Ratio] 13.7 % Normal 12.0 - 15.6 [facility] Comment on above: Performed By: #### 2 51534 ####[place] [address] Hematocrit (Bld) [Volume fraction] 40.6 % Normal 40.0 - 52.0 [facility] Comment on above: Performed By: #### 2 14669 ####[place] [address] Hemoglobin (Bld) [Mass/Vol] 13.4 g/dL Normal 13.0 - 17.5 [facility] Comment on above: Performed By: #### 2 29190 ####[facility],[address] [place] [address] Lymph # 0.80 x10EE3/UL Normal 0.80 - 2.80 [facility] Comment on above: Performed By: #### 2 03474 ####[facility],[address] [place] [address] Lymphocytes/100 WBC (Bld) 8.0 % Low 20.0 - 45.0 [facility] Comment on above: Performed By: #### 2 20058 ####[facility],[address] [place] [address] MANUAL DIFF N/A Normal [facility] Comment on above: Performed By: #### 2 57158 ####[facility],[address] [place] [address] MCH (RBC) [Entitic mass] 31 pg Normal 27 - 33 [facility] Comment on above: Performed By: #### 2 28206 ####[facility],[address] [place] [address] MCHC 33 X10 3 Normal 32 - 36 [facility] Comment on above: Performed By: #### 2 00195 ####[facility],[address] [place], [place] [address] MCV (RBC) [Entitic vol] 93 fL Normal 81 - 98 [facility] Comment on above: Performed By: #### 2 17137 ####[facility],[address] [place] [address] Sharp # 0.96 x10EE3/UL Normal 0.20 - 1.00 [facility] Comment on above: Performed By: #### 2 93570 ####[facility],[address] [place] [address] MONOS % 9.6 % Normal 0.0 - 10.0 [facility] Comment on above: Performed By: #### 2 36359 ####[facility],[address],[place] [address] Morphology Alvaro (Bld) [Interp] N/A Normal [facility] Comment on above: Performed By: #### 2 62582 ####[facility],[address] [place] [address] Neut # 8.11 x10EE3/UL High 1.50 - 7.10 [facility] Comment on above: Performed By: #### 2 90067 ####[facility],[address] [place] [address] 09547 Neutrophils/100 WBC (Bld) 80.8 % High 46.0 - 76.0 [facility] Comment on above: Performed By: #### 2 27304 ####[facility],[address] [place] [address] 26663 PLATELET 203 x10EE3/UL Normal 150 - 450 [facility] Comment on above: Performed By: #### 2 12950 ####[facility],[address] [place] [address] 20753 Platelet mean volume (Bld) [Entitic vol] 6.7 fL Normal 6.4 - 10.5 [facility] Comment on above: Result Comment: AUTO MATED DIFFERENTIAL Performed By: #### 2 28613 ####[address] [address] RBC 4.36 x 10EE6/UL Low 4.50 - 6.00 [facility] Comment on above: Performed By: #### 2 98245 ####[facility],[address] [place] [address] WBC 10.0 x 10EE3/UL Normal 4.5 - 10.8 [facility] Comment on above: Performed By: #### 2 10218 ####[facility],[address] [place] [address] 58196 CHEST 1 VIEWon 01-08-2024 CHEST 1 VIEW [place] [address] Patient: BRYN AYON Phone#: : 1945 Age: 78 Gender: M Pt. Type: ER Account: [id number] Location: 052 Ordering: DR. KRYS BARR Exam Date: 01/08/2024/17:23 Family Phys: Charge Code: [id number] Physician: Sampson Order #: [id number] Dose#: PROCEDURE: X-RAY CHEST 1 VIEW COMPARISON: [facility], XR, CHEST 1 VIEW, 01/02/2022, 13:26. [facility], XR, CHEST 2 VIEWS, 01/08/2022, 9:57. [...] Garcia MD on 01/08/2024 at 18:02 Normal [facility] CORONAVIRUS (SARS) ANTIGEN T ESTon 01-08-2024 EXTERNAL QC DONE? YES Normal [facility] Comment on above: Performed By: #### 2 06034 #### [facility],[address] [place] [address] INTERNAL CONTROL PASS Normal [facility] Comment on above: Performed By: #### 2 62020 #### [facility],[address] [place] [address] SARS ANTIGEN Negative Normal NORMAL: NEGATIVE [facility] Comment on above: Performed By: #### 2 97967 #### [facility],[address] [place], [place] [address] SEND TO ? NO Normal [facility] Comment on above: Result Comment: SARS -CoV-2 THIS TEST IS BEING USED UNDER THE FDA EUA PROCEDURE. THIS ASSAY HAS BEEN VALIDATED AT [facility] FOR USE WITH NASAL AND NASOPHARYNGEAL [...] PUBLIC HEALTH AUTHORITIES. Performed By: #### 2 41633 #### [facility],[address] [place], [place] [address] CT CHEST (PE PROTOCOL)on CT CHEST (PE PROTOCOL) [place] [address] Patient: BRYN AYONGuillaume Phone#: : 1945 Age: 78 Gender: M Pt. Type: ER Account: [id number] Location: 010 Ordering: ELIEZER CONSTANTINO Exam Date: 01/08/202421:25 Family Phys: Charge Code: [id number] Physician: Sampson Order #: [id number] Dose#: 8 PROCEDURE: CT CHEST WITH CONTRAST FOR PE COMPARISON: [facility], CT, CHEST PE W CON, 10/23/2018, [...] recommend dedicated thyroid ultrasound for further characterization. [place] [address] Patient: BRYN AYON Phone#: : 1945 Age: 78 Gender: M Pt. Type: ER Account: [id number] Location: 010 Ordering: ELIEZER CONSTANTINO Exam Date: 01/08/2024/21:25 Family Phys: Charge Code: [id number] Physician: Sampson Order #: [id number] Dose#: 8 Dictated by: Teresa Garcia MD on 01/09/2024 at 11:11 Approved by: Teresa Garcia MD on 01/09/2024 at 11:19 Normal [facility] D-DIMER, QUANTITATIVEon 12-19 D-DIMER QUANT 1039 ng/ml High 0 - 230 [facility] Comment on above: Performed By: #### 2 97049 #### [facility],[address] [place], [place] [id number] D-DIMER, QUANTITATIVE Normal [facility] Comment on above: Result Comment: TREVOR T D-DIMER Performed By: #### 2 93763 #### [facility],[address] [place], [place] [id number] INFLUENZA VIRUS RAPID A/Bon 01-08-2024 INFLUENZA VIRUS [...] TO THREE DAYS. RESULT CRITICAL? NO Normal [facility] Comment on above: Performed By: #### 2 97247 ####[facility],[address] [place] [address] LACTATEon 01-08-2024 Lactate [Moles/Vol] 0.8 mmol/L Normal 0.4 - 2.0 [facility] Comment on above: Performed By: #### 2 78418 #### [facility],[address] [place] [place] [address] 03005 NT-proBNPon 11-21-2024 Natriuretic peptide B (Bld) [Mass/Vol] 3150 pg/mL High 0 - 450 [facility] Comment on above: Performed By: #### 2 27264 #### [facility],[address] [place] [address] 75391 TROPONINon 01-08-2024 HS TROPONIN 33.3 pg/mL Normal 0.0 - 76.2 [facility] Comment on above: Performed By: #### 2 00489 #### [facility],[address] [place] [address] 29973 FACILITY CODING SUMMARYon FACILITY CODING SUMMARY Facility Coding Facility Coding Summary [address] [address] [id number] 11/27/2023 Patient: BRYN AYON Sex: Male : [...] from Providers: Splint - Short Arm (CPT: 25898-SZ) -- Bryn Rosen D.O. Procedures from Nurses/Facility: Splint - Short Arm (CPT: 39761-IA) 1 of 2 Facility Coding SUPPLIES [facility] 30695-65 This is a partial abstract of information documented in the full record. Fire Apparatus Sprinkler Inspector must use independent judgment in selecting codes. CPT copyright 2022 [employer]. All Rights Reserved. 2 of 2 Normal [facility] MED ADMINISTRATION DETAILon 11-27-2023 MED ADMINISTRATION DETAIL [employer]airer Medication Administration Record [address] [address] [id number] 11/27/2023 Patient: BRYN AYON Sex: Male : 1945 Age: 78y MEASUREMENTS: Wt: 89.8 kg, Ht/Hector: 69.0 in, BMI: 29.24 ALLERGIES: No known drug allergies Medication Ordered Medication Administration Date/Time 1 of 1 Normal [facility] NURSES CLINICAL REPORT (NOTE S)on 11-27-2023 NURSES CLINICAL REPORT (NOTES) Nurse Narrative Nurse Clinical Narrative [facility] [address] [place] [address] [phone] 11/27/2023 Patient: BRYN AYON Sex: Male : [...] Willy Rodriguez R.N. 11:18 11/27/23. Preferred pharmacy: [facility]. -- 11:31 11/27/23 YOUSUF Rodriguez R.N. [...] patient. Patient has a medical power of disability specialist (nedra ayon). Provided by patient. -- 11:31 [...] 4 Nu (more content not included)... Normal [facility] ORDER SHEET (CPOE ONLY)on ORDER SHEET (CPOE ONLY) Order Sheet Order Sheet [address] [address] [id number] 11/27/2023 Patient: BRYN AYON Sex: Male : 1945 Age: 78y MEASUREMENTS: Wt: 89.8 kg, Ht/Hector: 69.0 in, BMI: 29.24 ALLERGIES: No known drug allergies MEDICATION/IV/DRIP/F LUID ORDERS Order Description Priority Entered Acknowledged Completed Triple Antibiotic Oint 11:56 11/27/2023 12:04 (Hlez-Gzsg-Psfy B)1 applic Bryn Rosen 11/27/2023 (NOW x1) Luiz. Dash Epstein R.N. LAB ORDERS Order Description Priority Entered Acknowledged Collected Completed DIAGNOSTIC STUDY ORDERS Order Description Priority Entered Acknowledged Completed STAFF ORDERS Order Description Priority Entered Acknowledged Collected Completed [Electronically signed by Bryn Rosen D.O. (11/27/2023 20:28 EDT)] 1 of 1 Normal [facility] PHYS CLINICAL REPORT AND ADD ENon 11-27-2023 PHYS CLINICAL REPORT AND ADDEN Narrative Physician Clinical Narrative [address] [address] [id number] 11/27/2023 Patient: BRYN AYON Sex: Male : [...] your hand. Follow-up with: Jade Latham MD, [facility], Internal Medicine, , [address], [place] [address]. Follow up in five days. Call for an appointment. (keep clean and dry. watch for signs of infection (red hot pain)). (Electronically signed by Bryn Rosen D.O. 11/27/23 20:28:43 EDT) 3 of 4 Narrative Generated by [facility] 4 of 4 [facility] PHYS CODING SUMMARY INSURANCE COORDINATOR AB Cox 11-27-2023 PHYS CODING SUMMARY INSURANCE COORDINATOR ABST Coding Summary Coding Summary [address] [place] [address] [id number] 11/27/2023 Patient: BRYN AYON Sex: Male : 1945 Age: 78y ICD-10 Codes S60.811A: Abrasion of right wrist, initial encounter S60.511A: Abrasion of right hand, initial encounter S61.501A: Unspecified open wound of right wrist, initial encounter CPT Codes Splint - Short Arm (CPT: 83484-SW) This is a partial abstract of information documented in the full record. Fire Apparatus Sprinkler Inspector must use independent judgment in selecting codes. CPT copyright 2022 [employer]. All Rights Reserved. 1 of 1 [facility] SUPER BILLon 11-27-2023 SUPER BILL [address] [place] [address] [id number] 11/27/2023 Patient: BRYN AYON Sex: Male : 1945 Age: 78y Item Facility Professional Category Description Code Code Quantity Fee Total Nurse/E/M EMERGENCY 450757 1 $0.00 $0.00 DEPARTMENT VISIT MODERATE SEVERITY (86076-47) Physician/Procedures Splint - Short 288504 [id number] 1 $0.00 $0.00 Arm (36520-VM) Grand Total $0.00 Providers Bryn Rosen D.O. [...] wrist, initial encounter 2 of 2 Normal [facility] VISIT SUMMARYon 11-27-2023 VISIT SUMMARY Visit Overview Visit Overview [address] [address] [id number] 11/27/2023 Patient: BRYN AYON Sex: Male : [...] FOREIGN BODY PRESENT 3 of 3 Normal [facility] PTH, INTACT [CCL]on 07-18-19 24 PTH, Intact 42 pg/mL Normal 15-65 [facility] Comment on above: Result Comment: [address] [place] [address] Roberto Sue III, M.D. [id number] Performed By: #### 2 84149 #### [facility],[address] [place] [address] BMP with eGFRon 07-17-2023 AGE 77 years Normal [facility] Comment on above: Performed By: #### 2 34835 #### [facility],[address] [place] [address] Anion gap [Moles/Vol] 9 mmol/L Low 10 - 20 [facility] Comment on above: Performed By: #### 2 43216 #### [facility],[address] [place] [address] BMP with eGFR Normal [facility] Comment on above: Result Comment: BASI C METABOLIC PANEL Performed By: #### 2 04192 #### [facility],[address] [place] [address]676 Calcium [Mass/Vol] 9.1 mg/dL Normal 8.5 - 10.1 [facility] Comment on above: Performed By: #### 2 96017 #### [facility],[address] [place] [address] 83445 Chloride [Moles/Vol] 105 mmol/L Normal 98 - 107 [facility] Comment on above: Performed By: #### 2 42295 #### [facility],[address] [place] [address] 52422 CO2 [Moles/Vol] 32.2 mmol/L High 21.0 - 32.0 [facility] Comment on above: Performed By: #### 2 47532 #### [facility],[address] [place] [address]1416 Creatinine [Mass/Vol] 2.02 mg/dL High 0.70 - 1.30 [facility] Comment on above: Performed By: #### 2 54581 #### [facility],[address] [place] [address] 19237 eGFR 32 ML/MINUTE Low 60 - 999 [facility] Comment on above: Performed By: #### 2 06313 #### [facility],[address] [place] [address]27[address] eGFR(AA) 39 ML/MINUTE Low 60 - 999 [facility] Comment on above: Result Comment: ACCO RDING TO THE NATIONAL KIDNEY DISEASE EDUCATION PROGRAM(NKDE), A NORMAL eGFR IS A VALUE GREATER THAN OR EQUAL TO 60 ML/MIN/1.73 SQ METERS. CHRONIC KIDNEY DISEASE: <60mL/MIN/1.73 SQ METERS KIDNEY FAILURE: <15mL/MIN/1.73 SQ METERS THIS TEST SHOULD ONLY BE USED FOR PATIENTS 18 YEARS OF AGE AND OLDER. Performed By: #### 2 07032 #### [facility],[address] [place] [address]858 Glucose [Mass/Vol] 96 mg/dL Normal 74 - 106 [facility] Comment on above: Performed By: #### 2 94161 #### [facility],[address] [place] [address] Potassium [Moles/Vol] 4.1 mmol/L Normal 3.5 - 5.1 [facility] Comment on above: Performed By: #### 2 02218 #### [facility],[address] [place] [address] 35856 Sodium [Moles/Vol] 142 mmol/L Normal 136 - 145 [facility] Comment on above: Performed By: #### 2 97187 #### [facility],[address] [place] [address] 32611 Urea nitrogen [Mass/Vol] 39 mg/dL High 7 - 18 [facility] Comment on above: Performed By: #### 2 47625 #### [facility],[address] [place] [address] CBC + DIFFon 07-17-2023 Baso # 0.03 x10EE3/UL Normal 0.00 - 0.10 [facility] Comment on above: Performed By: #### 2 19652 #### [facility],[address] [place] [address]48[address] Basophils/100 WBC (Bld) 0.4 % Normal 0.0 - 2.0 [facility] Comment on above: Performed By: #### 2 36193 #### [facility],[address] [place] [address] CBC + DIFF Normal [facility] Comment on above: Result Comment: CBC- COMPLETE BLOOD COUNT Performed By: #### 2 06343 #### [facility],[address] [place] [address] 46951 EO # 0.13 x10EE3/UL Normal 0.00 - 0.50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 ([place]) Comment on above: Result Comment: For Heparin anticoagulation therapy, the recommended therapeutic range is: 54-77 seconds (APTT Correlation with Anti-Xa therapeutic range of 0.3-0.7 units/ml). PLEASE REFERENCE THE PHARMACY PROTOCOL FOR DOSING. Performed By: #### L IPID, GFR, ADIFF, CBC, BMP, ANEU, A1C #### [address] [address] Heparin dose (APTT) Unknown Normal [facility] ([place]) Comment on above: Performed By: #### L IPID, GFR, ADIFF, CBC, BMP, ANEU, A1C #### [address] [address] BMPon 03-03-2022 BUN/Creatinine Ratio 18.9 ratio Normal 10.0-22.0 [facility] ([place]) Comment on above: Performed By: #### L IPID, GFR, ADIFF, CBC, BMP, ANEU, A1C #### [address] [address] Calcium [Mass/Vol] 8.3 mg/dL Low 8.7-10.4 [facility] ([place]) Comment on above: Performed By: #### L IPID, GFR, ADIFF, CBC, BMP, ANEU, A1C #### [place] [id number] Chloride [Moles/Vol] 110 mmol/L Normal 98-110 [facility] ([place]) Comment on above: Performed By: #### L IPID, GFR, ADIFF, CBC, BMP, ANEU, A1C #### [address] [address] CO2 [Moles/Vol] 29 mmol/L Normal 22-32 [facility] ([place]) Comment on above: Performed By: #### L IPID, GFR, ADIFF, CBC, BMP, ANEU, A1C #### [address] [address] Creatinine [Mass/Vol] 1.48 mg/dL High 0.60-1.40 [facility] ([place]) Comment on above: Performed By: #### L IPID, GFR, ADIFF, CBC, BMP, ANEU, A1C #### [address] [address] Electrolyte Balance 5.0 mEq/L Normal 4.0-15.0 [facility] ([place]) Comment on above: Performed By: #### L IPID, GFR, ADIFF, CBC, BMP, ANEU, A1C #### [address] [address] Glucose [Mass/Vol] 124 mg/dL High 82-115 [facility] ([place]) Comment on above: Performed By: #### L IPID, GFR, ADIFF, CBC, BMP, ANEU, A1C #### [address] [address] Potassium [Moles/Vol] 4.3 mmol/L Normal 3.5-5.0 [facility] ([place]) Comment on above: Result Comment: Spec imen slightly hemolyzed. Performed By: #### L IPID, GFR, ADIFF, CBC, BMP, ANEU, A1C #### [place] [id number] Sodium [Moles/Vol] 144 mmol/L Normal 136-145 [facility] ([place]) Comment on above: Performed By: #### L IPID, GFR, ADIFF, CBC, BMP, ANEU, A1C #### [address] [address] Urea nitrogen [Mass/Vol] 28.0 mg/dL High 8.0-22.0 [facility] ([place]) Comment on above: Performed By: #### L IPID, GFR, ADIFF, CBC, BMP, ANEU, A1C #### [address] [address] CBCon 03-03-2022 Erythrocyte distribution width (RBC) [Ratio] 15.1 % Normal 11.5-15.5 [facility] ([place]) Comment on above: Performed By: #### L IPID, GFR, ADIFF, CBC, BMP, ANEU, A1C #### [address] [address] Hematocrit (Bld) [Volume fraction] 33.8 % Low 40.0-52.0 [facility] ([place]) Comment on above: Performed By: #### L IPID, GFR, ADIFF, CBC, BMP, ANEU, A1C #### [address] [address] Hgb 11.4 G/dL Low 13.0-17.5 [facility] ([place]) Comment on above: Performed By: #### L IPID, GFR, ADIFF, CBC, BMP, ANEU, A1C #### [place] [address] MCH (RBC) [Entitic mass] 31.5 pg Normal 27.0-33.0 [facility] ([place]) Comment on above: Performed By: #### L IPID, GFR, ADIFF, CBC, BMP, ANEU, A1C #### [place] [address] MCHC 33.7 G/dL Normal 32.0-36.0 [facility] ([place]) Comment on above: Performed By: #### L IPID, GFR, ADIFF, CBC, BMP, ANEU, A1C #### [place] [address] MCV (RBC) [Entitic vol] 93.4 fL Normal 81.0-100.0 [facility] ([place]) Comment on above: Performed By: #### L IPID, GFR, ADIFF, CBC, BMP, ANEU, A1C #### [place] [address] Platelet 169 10 3/mcL Normal 150-450 [facility] ([place]) Comment on above: Performed By: #### L IPID, GFR, ADIFF, CBC, BMP, ANEU, A1C #### [place] [address] Platelet mean volume (Bld) [Entitic vol] 7.2 fL Normal 6.4-10.5 [facility] ([place]) Comment on above: Performed By: #### L IPID, GFR, ADIFF, CBC, BMP, ANEU, A1C #### [place] [address] RBC 3.62 10 6/mcL Low 4.50-6.00 [facility] ([place]) Comment on above: Performed By: #### L IPID, GFR, ADIFF, CBC, BMP, ANEU, A1C #### [place] [address] WBC 8.9 10 3/mcL Normal 4.5-10.8 [facility] ([place]) Comment on above: Performed By: #### L IPID, GFR, ADIFF, CBC, BMP, ANEU, A1C #### [place] [address] Erythrocyte distribution width (RBC) [Ratio] 15.1 % Normal 11.5-15.5 [facility] ([place]) Comment on above: Performed By: #### L IPID, GFR, ADIFF, CBC, BMP, ANEU, A1C #### [place] [address] Hematocrit (Bld) [Volume fraction] 36.1 % Low 40.0-52.0 [facility] ([place]) Comment on above: Performed By: #### L IPID, GFR, ADIFF, CBC, BMP, ANEU, A1C #### [place] [address] Hgb 12.2 G/dL Low 13.0-17.5 [facility] ([place]) Comment on above: Performed By: #### L IPID, GFR, ADIFF, CBC, BMP, ANEU, A1C #### [place] [address] MCH (RBC) [Entitic mass] 31.4 pg Normal 27.0-33.0 [facility] ([place]) Comment on above: Performed By: #### L IPID, GFR, ADIFF, CBC, BMP, ANEU, A1C #### [place] [address] MCHC 33.9 G/dL Normal 32.0-36.0 [facility] ([place]) Comment on above: Performed By: #### L IPID, GFR, ADIFF, CBC, BMP, ANEU, A1C #### [place] [address] MCV (RBC) [Entitic vol] 92.8 fL Normal 81.0-100.0 [facility] ([place]) Comment on above: Performed By: #### L IPID, GFR, ADIFF, CBC, BMP, ANEU, A1C #### [address] [address] Platelet 198 10 3/mcL Normal 150-450 [facility] ([place]) Comment on above: Performed By: #### L IPID, GFR, ADIFF, CBC, BMP, ANEU, A1C #### [address] [address] Platelet mean volume (Bld) [Entitic vol] 7.1 fL Normal 6.4-10.5 [facility] ([place]) Comment on above: Performed By: #### L IPID, GFR, ADIFF, CBC, BMP, ANEU, A1C #### [address] [address] RBC 3.89 10 6/mcL Low 4.50-6.00 [facility] ([place]) Comment on above: Performed By: #### L IPID, GFR, ADIFF, CBC, BMP, ANEU, A1C #### [place] [id number] WBC 9.9 10 3/mcL Normal 4.5-10.8 [facility] ([place]) Comment on above: Performed By: #### L IPID, GFR, ADIFF, CBC, BMP, ANEU, A1C #### [place] [address] CKon 03-03-2022 CK [Catalytic activity/Vol] 157 U/L Normal 7-185 [facility] ([place]) Comment on above: Performed By: #### L IPID, GFR, ADIFF, CBC, BMP, ANEU, A1C #### [place] [address] CMPon 03-03-2022 Albumin Level 3.5 G/dL Normal 3.2-4.8 [facility] ([place]) Comment on above: Performed By: #### L IPID, GFR, ADIFF, CBC, BMP, ANEU, A1C #### [place] [address] Albumin/Globulin [Mass ratio] 1.5 {ratio} Normal 0.9-1.6 [facility] ([place]) Comment on above: Performed By: #### L IPID, GFR, ADIFF, CBC, BMP, ANEU, A1C #### [address] [address] ALP [Catalytic activity/Vol] 89 U/L Normal 38-126 [facility] ([place]) Comment on above: Performed By: #### L IPID, GFR, ADIFF, CBC, BMP, ANEU, A1C #### [address] [address] ALT [Catalytic activity/Vol] 15 U/L Normal 12-55 [facility] ([place]) Comment on above: Performed By: #### L IPID, GFR, ADIFF, CBC, BMP, ANEU, A1C #### [address] [address] AST [Catalytic activity/Vol] 18 U/L Normal 8-34 [facility] ([place]) Comment on above: Performed By: #### L IPID, GFR, ADIFF, CBC, BMP, ANEU, A1C #### [place] [id number] Bili Total 0.80 mg/dL Normal 0.20-1.20 [facility] ([place]) Comment on above: Result Comment: Use of this assay is not recommended for patients undergoing treatment with eltrombopag due to the potential for falsely elevated results. Performed By: #### L IPID, GFR, ADIFF, CBC, BMP, ANEU, A1C #### [place] [id number] BUN/Creatinine Ratio 19.0 ratio Normal 10.0-22.0 [facility] ([place]) Comment on above: Performed By: #### L IPID, GFR, ADIFF, CBC, BMP, ANEU, A1C #### [address] [address] Calcium [Mass/Vol] 8.6 mg/dL Low 8.7-10.4 [facility] ([place]) Comment on above: Performed By: #### L IPID, GFR, ADIFF, CBC, BMP, ANEU, A1C #### [address] [address] Chloride [Moles/Vol] 108 mmol/L Normal 98-110 [facility] ([place]) Comment on above: Performed By: #### L IPID, GFR, ADIFF, CBC, BMP, ANEU, A1C #### [address] [address] CO2 [Moles/Vol] 31 mmol/L Normal 22-32 [facility] ([place]) Comment on above: Performed By: #### L IPID, GFR, ADIFF, CBC, BMP, ANEU, A1C #### [address] [address] Creatinine [Mass/Vol] 1.53 mg/dL High 0.60-1.40 [facility] ([place]) Comment on above: Performed By: #### L IPID, GFR, ADIFF, CBC, BMP, ANEU, A1C #### [address] [address] Electrolyte Balance 4.0 mEq/L Normal 4.0-15.0 [facility] ([place]) Comment on above: Performed By: #### L IPID, GFR, ADIFF, CBC, BMP, ANEU, A1C #### [address] [address] Globulin 2.4 G/dL Normal 1.5-3.8 [facility] ([place]) Comment on above: Performed By: #### L IPID, GFR, ADIFF, CBC, BMP, ANEU, A1C #### [address] [address] Glucose [Mass/Vol] 182 mg/dL High 82-115 [facility] ([place]) Comment on above: Performed By: #### L IPID, GFR, ADIFF, CBC, BMP, ANEU, A1C #### [address] [address] Potassium [Moles/Vol] 4.8 mmol/L Normal 3.5-5.0 [facility] ([place]) Comment on above: Performed By: #### L IPID, GFR, ADIFF, CBC, BMP, ANEU, A1C #### [address] [address] Sodium [Moles/Vol] 143 mmol/L Normal 136-145 [facility] ([place]) Comment on above: Performed By: #### L IPID, GFR, ADIFF, CBC, BMP, ANEU, A1C #### [place] [id number] Total Protein 5.9 G/dL Normal 5.7-8.2 [facility] ([place]) Comment on above: Result Comment: No te - New Reference Range in effect 19 Performed By: #### L IPID, GFR, ADIFF, CBC, BMP, ANEU, A1C #### [place] [address] Urea nitrogen [Mass/Vol] 29.0 mg/dL High 8.0-22.0 [facility] ([place]) Comment on above: Performed By: #### L IPID, GFR, ADIFF, CBC, BMP, ANEU, A1C #### [place] [address] FIBon 03-03-2022 Fibrinogen 659 mg/dL High 250-560 [facility] ([place]) Comment on above: Performed By: #### L IPID, GFR, ADIFF, CBC, BMP, ANEU, A1C #### [place] [address] HHon 03-03-2022 Hematocrit (Bld) [Volume fraction] 36.8 % Low 40.0-52.0 [facility] ([place]) Comment on above: Performed By: #### H H #### [place] [address] Hgb 12.3 G/dL Low 13.0-17.5 [facility] ([place]) Comment on above: Performed By: #### H H #### [place] [address] Hematocrit (Bld) [Volume fraction] 36.9 % Low 40.0-52.0 [facility] ([place]) Comment on above: Performed By: #### L IPID, GFR, ADIFF, CBC, BMP, ANEU, A1C #### [place] [address] Hgb 12.1 G/dL Low 13.0-17.5 [facility] ([place]) Comment on above: Performed By: #### L IPID, GFR, ADIFF, CBC, BMP, ANEU, A1C #### [address] [address] LIPIDon 03-03-2022 Cholesterol [Mass/Vol] 100 mg/dL Normal 50-199 [facility] ([place]) Comment on above: Result Comment: Chol esterol Reference Interval: Less than 200 Desirable 200-239 Borderline high risk 240 and above High risk Performed By: #### L IPID, GFR, ADIFF, CBC, BMP, ANEU, A1C #### [address] [address] Cholesterol in HDL [Mass/Vol] 30 mg/dL Low 40-59 [facility] ([place]) Comment on above: Performed By: #### L IPID, GFR, ADIFF, CBC, BMP, ANEU, A1C #### [place] [address] Cholesterol in LDL [Mass/Vol] 51 mg/dL Normal 0-129 [facility] ([place]) Comment on above: Performed By: #### L IPID, GFR, ADIFF, CBC, BMP, ANEU, A1C #### [address] [address] Triglyceride [Mass/Vol] 93 mg/dL Normal 3-149 [facility] ([place]) Comment on above: Performed By: #### L IPID, GFR, ADIFF, CBC, BMP, ANEU, A1C #### [place] [address] MYOSon 03-03-2022 Myoglobin [Mass/Vol] 229.7 ng/mL High 3.0-110.0 [facility] ([place]) Comment on above: Result Comment: No te - New Reference Range in effect 19 Performed By: #### L IPID, GFR, ADIFF, CBC, BMP, ANEU, A1C #### [address] [address] PROon 03-03-2022 INR Coag (PPP) [Relative time] 1.5 {INR} Normal [facility] ([place]) Comment on above: Result Comment: The [place] [employer] (CHEST, 1992, [id number]) recommended therapeutic range for oral anticoagulant therapy is: LOW RISK: Prophylaxis of venous thrombosis INR: 2.0-3.0 Treatment of pulmonary embolism 2.0-3.0 Prevention of systemic embolism 2.0-3.0 HIGH RISK: Mechanical prosthetic valves 2.5-3.5 Performed By: #### L IPID, GFR, ADIFF, CBC, BMP, ANEU, A1C #### [address] [address] PT Coag (PPP) [Time] 18.0 s High 9.0-14.9 [facility] ([place]) Comment on above: Result Comment: Effe ctive 09/01/07, Protime results may be affected by some antibiotics (i.e. Ciprofloxacin, Azithromycin, Bactrim) which may potentiate the action of oral anticoagulants, with further increase in Protime/INR. Performed By: #### L IPID, GFR, ADIFF, CBC, BMP, ANEU, A1C #### [address] [address] UAon 03-03-2022 Color (U) Yellow Normal [facility] ([place]) Comment on above: Performed By: #### A ROXANA #### [place] [id number] Glucose (U) [Mass/Vol] Negative Normal Negative [facility] ([place]) Comment on above: Performed By: #### A ROXANA #### [address] [address] Ketones Ql (U) Negative Normal Neg-Trace [facility] ([place]) Comment on above: Performed By: #### A ROXANA #### [address] [address] UA Appear Clear Normal Clear [facility] ([place]) Comment on above: Performed By: #### A HSAKIR SCHMIDT #### [address] [address] UA Blood Negative Normal Neg-Trace [facility] ([place]) Comment on above: Performed By: #### A SHAKIR SCHMIDT #### [place] [address] UA Leuk Est Negative Normal Negative [facility] ([place]) Comment on above: Performed By: #### A ROXANA, #### [place] [id number] UA Nitrite Negative Normal Negative [facility] ([place]) Comment on above: Performed By: #### A ROXANA, HH #### [place] [address] UA pH 5.5 Normal 5.0 - 8.0 [facility] [facility] [place] Comment on above: Performed By: #### A ROXANA, HH #### [place] [address] UA Protein Trace Normal Negative [facility] ([place]) Comment on above: Performed By: #### A ROXANA HH #### [place] [address] UA Spec Grav >=1.030 Abnormal 1.006-1.029 [facility] ([place]) Comment on above: Performed By: #### A ROXANA #### [place] [address] UA Specimen Type Clean Catch Normal [facility] ([place]) Comment on above: Performed By: #### A ROXANA #### [place] [address] UA Urobilinogen 1.0 E.U./dL Normal 0.2-1.0 [facility] ([place] Comment on above: Performed By: #### A ROXANA, HH #### [place] [address] Urobilinogen (U) [Mass/Vol] Negative Normal Neg-Trace [facility] ([place]) Comment on above: Performed By: #### A ROXANA HH #### [place] [address] Von 03-02-2022 Ethanol Level <10.0 Normal [facility] ([place] Comment on above: Performed By: #### A ROXANA, SHAKIR #### [place] [address] HHon 03-02-2022 Hematocrit (Bld) [Volume fraction] 35.7 % Low 40.0-52.0 [facility] ([place]) Comment on above: Performed By: #### A ROXANA, SHAKIR #### [facility] [address] [place] [id number] Hgb 12.1 G/dL Low 13.0-17.5 [facility] ([place]) Comment on above: Performed By: #### A ROXANA, #### [facility] [address] [place] [id number] Glucose Glucometer (BldC) [M ass/Vol]on 06-13-2021 Glucose [Mass/Vol] 225 mg/dL 74-106 [facility] Work Phone: Comment on above: MANAGEMENT OF PATIEN T CARE PER NURSING PROTOCOL Absolute lymphocyte counton 06-12-2021 Lymphocytes Auto (Unsp spec) [#/Vol] 1.23 10*3/uL 0.83-4.51 [facility] Work Phone: Basophil percentageon 2021 Basophils/100 WBC (Bld) 0.1 % 0-1 [facility] Work Phone: Chloride [Moles/Vol] 97 mmol/L 98-107 [facility] Work Phone: Eosinophils/100 WBC (Bld) 0.2 % 0-5 [facility] Work Phone: Glucose [Mass/Vol] 266 mg/dL 74-106 [facility] Work Phone: Comment on above: Glucose result great er than or equal to 200 mg/dLsuggests DIABETES MELLITUS per A.D.A. criteria. Neutrophils (Bld) [#/Vol] 12.8 10*3/uL 2.0-7.7 [facility] Work Phone: Neutrophils/100 WBC (Bld) 81.9 % 47-70 [facility] Work Phone: Potassium [Moles/Vol] 4.2 mmol/L 3.5-5.1 [facility] Work Phone: Sodium [Moles/Vol] 135 mmol/L 136-145 [facility] Work Phone: WBC (Bld) [#/Vol] 15.6 10*3/uL 4.4-11.0 [facility] Work [facility]: Blood erythrocytes count (nu mber/volume)on 06-12-2021 RBC (Bld) [#/Vol] 3.97 10*6/uL 4.6-6.2 [facility] Work Phone: Blood hemoglobin measurement (mass/volume)on 06-12-2021 Hemoglobin (Bld) [Mass/Vol] 12.1 g/dL 13.0-16.5 [facility] Work Phone: Blood lymphocytes/100 leukoc yteson 06-12-2021 Lymphocytes/100 WBC (Bld) 7.9 % 19-41 [facility] Work Phone: Blood monocytes/100 leukocyt eson 06-12-2021 Monocytes/100 WBC (Bld) 8.2 % 0-10 [facility] Work Phone: Blood platelet mean volumeon 06-12-2021 Platelet mean volume (Bld) [Entitic vol] 9.1 fL 6.2-12.0 [facility] Work Phone: Determination of erythrocyte mean corpuscular volume (MCV)on 06-12-2021 MCV (RBC) [Entitic vol] 88.9 fL 80-94 [facility] Work Phone: Hematocrit Auto (Bld) [Volum e fraction]on 06-12-2021 Hematocrit (Bld) [Volume fraction] 35.3 % 40-54 [facility] Work Phone: Laboratory - Chemistry and C hemistry - challengeon 06-12-2021 CO2 [Moles/Vol] 33.0 mmol/L 21.0-32.0 [facility] Work Phone: Magnesium [Mass/Vol] 1.9 mg/dL 1.6-2.6 [facility] Work Phone: Urea nitrogen/Creatinine [Mass ratio] 35.3 mg/mg 10-20 [facility] Work Phone: Laboratory - Hematology and Cell countson 06-12-2021 Erythrocyte distribution width (RBC) [Entitic vol] 39.7 fL 35.1-43.9 [facility] Work Phone: Erythrocyte distribution width (RBC) [Ratio] 12.2 % 11.6-14.6 [facility] Work Phone: Immature granulocytes/100 WBC (Bld) 1.700 % 0.0-0.9 [facility] Work Phone: Comment on above: IG% - Immature Granu locytes (promyelocytes, myelocytes and metamyelocytes) > 1% indicates that a LEFT SHIFT is Present. MCH (RBC) [Entitic mass] 30.5 pg 27.0-32.0 [facility] Work Phone: Nucleated RBC/100 WBC (Bld) [Ratio] 0 % 0-5 [facility] Work Phone: MCHC Auto (RBC) [Mass/Vol]on 06-12-2021 MCHC (RBC) [Mass/Vol] 34.3 g/dL 32-36 [facility] Work Phone: No Panel Informationon 06-12 Estimated Creatinine Clearance Calc 35.14 ml/min [facility] Work Phone: Estimated GFR (MDRD) Amer 50 mL/min >60 [facility] Work Phone: Comment on above: GFR Calc Estimated GFR (MDRD) Non-Af Amer 41 mL/min >60 [facility] Work Phone: Comment on above: Non- GFR Calc Platelets bldon 06-12-2021 Platelets (Bld) [#/Vol] 230 10*3/uL 150-450 [facility] Work Phone: Serum or plasma calcium gilda urement (mass/volume)on 06-12-2021 Calcium [Mass/Vol] 8.7 mg/dL 8.5-10.1 [facility] Work Phone: Serum or plasma creatinine m easurement (mass/volume)on 06-12-2021 Creatinine [Mass/Vol] 1.73 mg/dL 0.70-1.30 [facility] Work Phone: Comment on above: The validity of the calculated GFR & GFRAA in patients over 70 years has not been determined. Clinical correlation is essential. Serum or plasma urea nitroge n measurement (mass/volume)on 06-12-2021 Urea nitrogen [Mass/Vol] 61 mg/dL 7-18 [facility] Work Phone: Thin prep Papanicolaou smear with manual screeningon 06-12-2021 Thin prep Papanicolaou smear with manual screening 5 5-15 [facility] Work Phone: Absolute lymphocyte counton 06-11-2021 Lymphocytes Auto (Unsp spec) [#/Vol] 0.59 10*3/uL 0.83-4.51 [facility] Work Phone: Basophil percentageon 2021 Basophils/100 WBC (Bld) 0.1 % 0-1 [facility] Work Phone: Chloride [Moles/Vol] 88 mmol/L 98-107 [facility] Work Phone: Eosinophils/100 WBC (Bld) 0.0 % 0-5 [facility] Work Phone: Glucose [Mass/Vol] 736 mg/dL 74-106 [facility] Work Phone: Comment on above: Critical Result(s) C alled at: 22:37:16 06/11/2021 by: JR GALAN TO DIONY HDEZ. Results read back by same.Glucose result greater than or equal to 200 mg/dLsuggests DIABETES MELLITUS per A.D.A. criteria. Neutrophils (Bld) [#/Vol] 13.6 10*3/uL 2.0-7.7 [facility] Work Phone: Neutrophils/100 WBC (Bld) 88.7 % 47-70 [facility] Work Phone: Potassium [Moles/Vol] 5.1 mmol/L 3.5-5.1 [facility] Work Phone: Sodium [Moles/Vol] 128 mmol/L 136-145 [facility] Work Phone: WBC (Bld) [#/Vol] 15.3 10*3/uL 4.4-11.0 [facility] Work Phone: Blood erythrocytes count (nu mber/volume)on 06-11-2021 RBC (Bld) [#/Vol] 4.35 10*6/uL 4.6-6.2 [facility] Work Phone: Blood hemoglobin measurement (mass/volume)on 06-11-2021 Hemoglobin (Bld) [Mass/Vol] 13.2 g/dL 13.0-16.5 [facility] Work Phone: Blood lymphocytes/100 leukoc yteson 06-11-2021 Lymphocytes/100 WBC (Bld) 3.8 % 19-41 [facility] Work Phone: Blood manual differential co mment interpretation (narrative result)on 06-11-2021 Manual differential comment Alvaro (Bld) [Interp] SCANNED [facility] Work Phone: Comment on above: LYMPHOPENIA NOTED Blood monocytes/100 leukocyt eson 06-11-2021 Monocytes/100 WBC (Bld) 5.7 % 0-10 [facility] Work Phone: Blood platelet mean volumeon 06-11-2021 Platelet mean volume (Bld) [Entitic vol] 9.8 fL 6.2-12.0 [facility] Work Phone: Determination of erythrocyte mean corpuscular volume (MCV)on 06-11-2021 MCV (RBC) [Entitic vol] 89.9 fL 80-94 [facility] Work Phone: Glucose Glucometer (BldC) [M ass/Vol]on 06-11-2021 Glucose [Mass/Vol] mg/dL 74-106 [facility] Work Phone: Comment on above: MANAGEMENT OF PATIEN T CARE PER NURSING PROTOCOL Hematocrit Auto (Bld) [Volum e fraction]on 06-11-2021 Hematocrit (Bld) [Volume fraction] 39.1 % 40-54 [facility] Work Phone: Laboratory - Chemistry and C hemistry - challengeon 06-11-2021 CO2 [Moles/Vol] 32.0 mmol/L 21.0-32.0 [facility] Work Phone: Urea nitrogen/Creatinine [Mass ratio] 31.8 mg/mg 10-20 [facility] Work Phone: Laboratory - Hematology and Cell countson 06-11-2021 Erythrocyte distribution width (RBC) [Entitic vol] 41.6 fL 35.1-43.9 [facility] Work Phone: Erythrocyte distribution width (RBC) [Ratio] 12.5 % 11.6-14.6 [facility] Work Phone: Immature granulocytes/100 WBC (Bld) 1.700 % 0.0-0.9 [facility] Work Phone: Comment on above: IG% - Immature Granu locytes (promyelocytes, myelocytes and metamyelocytes) > 1% indicates that a LEFT SHIFT is Present. MCH (RBC) [Entitic mass] 30.3 pg 27.0-32.0 [facility] Work Phone: Nucleated RBC/100 WBC (Bld) [Ratio] 0 % 0-5 [facility] Work Phone: MCHC Auto (RBC) [Mass/Vol]on 06-11-2021 MCHC (RBC) [Mass/Vol] 33.8 g/dL 32-36 [facility] Work Phone: No Panel Informationon 06-11 Estimated Creatinine Clearance Calc 27.64 ml/min [facility] Work Phone: Estimated GFR (MDRD) Amer 38 mL/min >60 [facility] Work Phone: Comment on above: GFR Calc Estimated GFR (MDRD) Non-Af Amer 31 mL/min >60 [facility] Work Phone: Comment on above: Non- GFR Calc Platelets bldon 06-11-2021 Platelets (Bld) [#/Vol] 253 10*3/uL 150-450 [facility] Work Phone: Review by pathologiston 05-19 Pathologist review Alvaro (Unsp spec) [Interp] June [facility] Work Phone: Serum or plasma acetone gilda urement (mass/volume)on 06-11-2021 Acetone [Mass/Vol] Negative NEG [facility] Work Phone: Serum or plasma calcium gilda urement (mass/volume)on 06-11-2021 Calcium [Mass/Vol] 9.6 mg/dL 8.5-10.1 [facility] Work Phone: Serum or plasma creatinine m easurement (mass/volume)on 06-11-2021 Creatinine [Mass/Vol] 2.20 mg/dL 0.70-1.30 [facility] Work Phone: Comment on above: The validity of the calculated GFR & GFRAA in patients over 70 years has not been determined. Clinical correlation is essential. Serum or plasma urea nitroge n measurement (mass/volume)on 06-11-2021 Urea nitrogen [Mass/Vol] 70 mg/dL 7-18 [facility] Work Phone: Thin prep Papanicolaou smear with manual screeningon 06-11-2021 Thin prep Papanicolaou smear with manual screening 322 mOsm/KG 280-301 [facility] Work Phone: Thin prep Papanicolaou smear with manual screening 8 5-15 [facility] Work Phone: Whole blood hemoglobin A1c/t otal hemoglobin ratio (mass fraction)on 06-11-2021 HbA1c (Bld) [Mass fraction] 9.3 % 3.8-5.6 [facility] Work Phone: Comment on above: Normal < 5.7 % Predi abetic 5.7 - 6.4 % Diabetic >or= 6.5 % Please note range changes. Absolute lymphocyte counton 06-01-2021 Lymphocytes Auto (Unsp spec) [#/Vol] 0.92 10*3/uL 0.83-4.51 [facility] Work Phone: Basophil percentageon 2021 Basophils/100 WBC (Bld) 0.4 % 0-1 [facility] Work Phone: Bilirubin [Mass/Vol] 0.80 mg/dL 0.20-1.00 [facility] Work Phone: Comment on above: For patients on eltr ombopag therapy, use of Dimension [place] TBIL is not recommended. Chloride [Moles/Vol] 98 mmol/L 98-107 [facility] Work Phone: Eosinophils/100 WBC (Bld) 0.3 % 0-5 [facility] Work Phone: Glucose [Mass/Vol] 329 mg/dL 74-106 [facility] Work Phone: Comment on above: Glucose result great er than or equal to 200 mg/dLsuggests DIABETES MELLITUS per A.D.A. criteria. Neutrophils (Bld) [#/Vol] 12.2 10*3/uL 2.0-7.7 [facility] Work Phone: Neutrophils/100 WBC (Bld) 81.3 % 47-70 [facility] Work Phone: [phone] Potassium [Moles/Vol] 4.9 mmol/L 3.5-5.1 [facility] Work Phone: Protein [Mass/Vol] 6.8 g/dL 6.4-8.2 [facility] Work Phone: Sodium [Moles/Vol] 133 mmol/L 136-145 [facility] Work Phone: WBC (Bld) [#/Vol] 15.0 10*3/uL 4.4-11.0 [facility] Work Phone: Blood erythrocytes count (nu mber/volume)on 06-01-2021 RBC (Bld) [#/Vol] 4.58 10*6/uL 4.6-6.2 [facility] Work Phone: Blood hemoglobin measurement (mass/volume)on 06-01-2021 Hemoglobin (Bld) [Mass/Vol] 13.9 g/dL 13.0-16.5 [facility] Work Phone: Blood lymphocytes/100 leukoc yteson 06-01-2021 Lymphocytes/100 WBC (Bld) 6.1 % 19-41 [facility] Work Phone: Blood monocytes/100 leukocyt eson 06-01-2021 Monocytes/100 WBC (Bld) 9.2 % 0-10 [facility] Work Phone: Blood platelet mean volumeon 06-01-2021 Platelet mean volume (Bld) [Entitic vol] 8.8 fL 6.2-12.0 [facility] Work Phone: Bronchoalveolar lavage cultu re with Gram stainon 06-01-2021 Respiratory Culture Pseudomonas aeroginosa [facility] Work Phone: Determination of erythrocyte mean corpuscular volume (MCV)on 06-01-2021 MCV (RBC) [Entitic vol] 89.7 fL 80-94 [facility] Work Phone: Gram stain for investigation of transfusion reactionon 06-01-2021 Microscopic observation Gram stain Nom (Unsp spec) [facility] Work Phone: Hematocrit Auto (Bld) [Volum e fraction]on 06-01-2021 Hematocrit (Bld) [Volume fraction] 41.1 % 40-54 [facility] Work Phone: Laboratory - Chemistry and C hemistry - challengeon 06-01-2021 ALP [Catalytic activity/Vol] 89 U/L 45-117 [facility] Work Phone: [phone] ALT [Catalytic activity/Vol] 43 U/L 16-61 [facility] Work Phone: [phone] CO2 [Moles/Vol] 29.0 mmol/L 21.0-32.0 [facility] Work Phone: [phone] Globulin (S) [Mass/Vol] 3.6 g/dL 2.2-4.2 [facility] Work Phone: [phone] Urea nitrogen/Creatinine [Mass ratio] 30.0 mg/mg 10-20 [facility] Work Phone: Laboratory - Hematology and Cell countson 06-01-2021 Erythrocyte distribution width (RBC) [Entitic vol] 42.2 fL 35.1-43.9 [facility] Work Phone: Erythrocyte distribution width (RBC) [Ratio] 12.8 % 11.6-14.6 [facility] Work Phone: [phone] Immature granulocytes/100 WBC (Bld) 2.700 % 0.0-0.9 [facility] Work Phone: Comment on above: IG% - Immature Granu locytes (promyelocytes, myelocytes and metamyelocytes) > 1% indicates that a LEFT SHIFT is Present. MCH (RBC) [Entitic mass] 30.3 pg 27.0-32.0 [facility] Work Phone: Nucleated RBC/100 WBC (Bld) [Ratio] 0 % 0-5 [facility] Work Phone: [phone] MCHC Auto (RBC) [Mass/Vol]on 06-01-2021 MCHC (RBC) [Mass/Vol] 33.8 g/dL 32-36 [facility] Work Phone: No Panel Informationon 06-01 Estimated Creatinine Clearance Calc 38.00 ml/min [facility] Work Phone: Estimated GFR (MDRD) Amer 54 mL/min >60 [facility] Work Phone: Comment on above: GFR Calc Estimated GFR (MDRD) Non-Af Amer 45 mL/min >60 [facility] Work Phone: Comment on above: Non- GFR Calc Troponin I High Sensitivity 25 pg/mL 3.0-78.0 [facility] Work Phone: Comment on above: Please Note: [place] Units and Gender Specific Reference Ranges. For more information see Policy Stat Procedure [place] High Sensitivity Troponin (TNIH) and attachments. Platelets bldon 06-01-2021 Platelets (Bld) [#/Vol] 265 10*3/uL 150-450 [facility] Work Phone: Serum or plasma albumin gilda urement (mass/volume)on 06-01-2021 Albumin [Mass/Vol] 3.2 g/dL 3.2-5.0 [facility] Work Phone: Serum or plasma albumin/glob ulin mass ratioon 06-01-2021 Albumin/Globulin [Mass ratio] 0.9 {ratio} 0.9-2.4 [facility] Work Phone: Serum or plasma calcium gilda urement (mass/volume)on 06-01-2021 Calcium [Mass/Vol] 9.4 mg/dL 8.5-10.1 [facility] Work Phone: Serum or plasma creatinine m easurement (mass/volume)on 06-01-2021 Creatinine [Mass/Vol] 1.60 mg/dL 0.70-1.30 [facility] Work Phone: Comment on above: The validity of the calculated GFR & GFRAA in patients over 70 years has not been determined. Clinical correlation is essential. Serum or plasma urea nitroge n measurement (mass/volume)on 06-01-2021 Urea nitrogen [Mass/Vol] 48 mg/dL 7-18 [facility] Work Phone: Thin prep Papanicolaou smear with manual screeningon 06-01-2021 Thin prep Papanicolaou smear with manual screening 16 U/L 15-37 [facility] Work Phone: Thin prep Papanicolaou smear with manual screening 6 5-15 [facility] Work Phone: Absolute lymphocyte counton 05-27-2021 Lymphocytes Auto (Unsp spec) [#/Vol] 0.92 10*3/uL 0.83-4.51 [facility] Work Phone: Basophil percentageon 2021 Basophils/100 WBC (Bld) 0.3 % 0-1 [facility] Work Phone: Chloride [Moles/Vol] 102 mmol/L 98-107 [facility] Work Phone: Eosinophils/100 WBC (Bld) 0.8 % 0-5 [facility] Work Phone: Glucose [Mass/Vol] 210 mg/dL 74-106 [facility] Work Phone: Comment on above: Glucose result great er than or equal to 200 mg/dLsuggests DIABETES MELLITUS per A.D.A. criteria. Neutrophils (Bld) [#/Vol] 5.5 10*3/uL 2.0-7.7 [facility] Work Phone: Neutrophils/100 WBC (Bld) 76.2 % 47-70 [facility] Work Phone: Potassium [Moles/Vol] 5.2 mmol/L 3.5-5.1 [facility] Work Phone: [phone] Sodium [Moles/Vol] 135 mmol/L 136-145 [facility] Work Phone: WBC (Bld) [#/Vol] 7.2 10*3/uL 4.4-11.0 [facility] Work Phone: Blood erythrocytes count (nu mber/volume)on 05-27-2021 RBC (Bld) [#/Vol] 4.55 10*6/uL 4.6-6.2 [facility] Work Phone: Blood hemoglobin measurement (mass/volume)on 05-27-2021 Hemoglobin (Bld) [Mass/Vol] 13.9 g/dL 13.0-16.5 [facility] Work Phone: Blood lymphocytes/100 leukoc yteson 05-27-2021 Lymphocytes/100 WBC (Bld) 12.8 % 19-41 [facility] Work Phone: Blood monocytes/100 leukocyt eson 05-27-2021 Monocytes/100 WBC (Bld) 9.5 % 0-10 [facility] Work Phone: Blood platelet mean volumeon 05-27-2021 Platelet mean volume (Bld) [Entitic vol] 8.8 fL 6.2-12.0 [facility] Work Phone: Determination of erythrocyte mean corpuscular volume (MCV)on 05-27-2021 MCV (RBC) [Entitic vol] 91.9 fL 80-94 [facility] Work Phone: Hematocrit Auto (Bld) [Volum e fraction]on 05-27-2021 Hematocrit (Bld) [Volume fraction] 41.8 % 40-54 [facility] Work Phone: Laboratory - Chemistry and C hemistry - challengeon 05-27-2021 CO2 [Moles/Vol] 30.0 mmol/L 21.0-32.0 [facility] Work Phone: Natriuretic peptide B (Bld) [Mass/Vol] 111.0 pg/mL 0-100 [facility] Work Phone: Urea nitrogen/Creatinine [Mass ratio] 22.7 mg/mg 10-20 [facility] Work Phone: Laboratory - Hematology and Cell countson 05-27-2021 Erythrocyte distribution width (RBC) [Entitic vol] 45.6 fL 35.1-43.9 [facility] Work Phone: Erythrocyte distribution width (RBC) [Ratio] 13.2 % 11.6-14.6 [facility] Work Phone: Immature granulocytes/100 WBC (Bld) 0.400 % 0.0-0.9 [facility] Work Phone: Comment on above: IG% - Immature Granu locytes (promyelocytes, myelocytes and metamyelocytes) > 1% indicates that a LEFT SHIFT is Present. MCH (RBC) [Entitic mass] 30.5 pg 27.0-32.0 [facility] Work Phone: Nucleated RBC/100 WBC (Bld) [Ratio] 0 % 0-5 [facility] Work Phone: MCHC Auto (RBC) [Mass/Vol]on 05-27-2021 MCHC (RBC) [Mass/Vol] 33.3 g/dL 32-36 [facility] Work Phone: No Panel Informationon 05-27 Estimated Creatinine Clearance Calc 29.09 ml/min [facility] Work Phone: Estimated GFR (MDRD) Amer 38 mL/min >60 [facility] Work Phone: Comment on above: GFR Calc Estimated GFR (MDRD) Non-Af Amer 32 mL/min >60 [facility] Work Phone: Comment on above: Non- GFR Calc Troponin I High Sensitivity 15 pg/mL 3.0-78.0 [facility] Work Phone: Comment on above: Please Note: [place] Units and Gender Specific Reference Ranges. For more information see Policy Stat Procedure [place] High Sensitivity Troponin (TNIH) and attachments. Platelets bldon 05-27-2021 Platelets (Bld) [#/Vol] 184 10*3/uL 150-450 [facility] Work Phone: Serum or plasma calcium gilda urement (mass/volume)on 05-27-2021 Calcium [Mass/Vol] 9.1 mg/dL 8.5-10.1 [facility] Work Phone: Serum or plasma creatinine m easurement (mass/volume)on 05-27-2021 Creatinine [Mass/Vol] 2.16 mg/dL 0.70-1.30 [facility] Work Phone: Comment on above: The validity of the calculated GFR & GFRAA in patients over 70 years has not been determined. Clinical correlation is essential. Serum or plasma urea nitroge n measurement (mass/volume)on 05-27-2021 Urea nitrogen [Mass/Vol] 49 mg/dL 7-18 [facility] Work Phone: Thin prep Papanicolaou smear with manual screeningon 05-27-2021 Thin prep Papanicolaou smear with manual screening 3 07-01 [facility] Work Phone: Vital Signs Date Time Vital Sign Value Performing Clinician Facility 08-31-2024 03:00-0400 Body temperature 96.9 [degF] [facility] 08-31-2024 03:00-0400 Diastolic blood pressure 70 mm[Hg] [facility] 08-31-2024 03:00-0400 Heart rate 66 /min [facility] 08-31-2024 03:00-0400 Respiratory rate 18 /min [facility] 08-31-2024 03:00-0400 SaO2% (BldA) [Mass fraction] 97 % [facility] 08-31-2024 03:00-0400 Systolic blood pressure 162 mm[Hg] [facility] 08-31-2024 01:30-0400 Inhaled oxygen concentration 30 % [facility] 08-31-2024 01:04-0400 Inhaled oxygen flow rate 5 L/min [facility] 08-31-2024 00:57-0400 Body height 172.72 cm [facility] 08-31-2024 00:57-0400 Body mass index (BMI) [Ratio] 28 kg/m2 [facility] 08-31-2024 00:57-0400 Body weight 83.5 kg [facility] 08-06-2024 08:37-0400 Body height 172.72 cm [facility] 08-06-2024 08:37-0400 Body mass index (BMI) [Ratio] 28.8 kg/m2 [facility] 08-06-2024 08:37-0400 Body weight 85.95 kg [facility] 08-05-2024 07:59-0400 Body mass index (BMI) [Ratio] 28.4 kg/m2 [facility] 08-05-2024 07:59-0400 Body temperature 97.4 [degF] [facility] 08-05-2024 07:59-0400 Body weight 84.82 kg [facility] 08-05-2024 07:59-0400 Diastolic blood pressure 61 mm[Hg] [facility] 08-05-2024 07:59-0400 Heart rate 48 /min [facility] 08-05-2024 07:59-0400 Respiratory rate 18 /min [facility] 08-05-2024 07:59-0400 SaO2% (BldA) [Mass fraction] 92 % [facility] 08-05-2024 07:59-0400 Systolic blood pressure 130 mm[Hg] [facility] 07-08-2024 14:39-0400 Body mass index (BMI) [Ratio] 27.5 kg/m2 [facility] 07-08-2024 14:11-0400 Heart rate 43 /min [facility] 07-08-2024 14:11-0400 SaO2% (BldA) [Mass fraction] 98 % [facility] 07-08-2024 13:51-0400 Body height 172.72 cm [facility] 07-08-2024 13:51-0400 Body weight 82.1 kg [facility] 07-08-2024 13:37-0400 Diastolic blood pressure 69 mm[Hg] [facility] 07-08-2024 13:37-0400 Systolic blood pressure 142 mm[Hg] [facility] 08-07-2022 10:27-0400 Body temperature 97.34 [degF] ELIEZER PRO MD [facility] 08-07-2022 10:27-0400 Body weight 97.3 kg ELIEZER PRO MD [facility] 08-07-2022 10:27-0400 Diastolic Blood Pressure Non-Invasive 59 1 ELIEZER PRO MD [facility] 08-07-2022 10:27-0400 Heart rate 50 /min ELIEZER PRO MD [facility] 08-07-2022 10:27-0400 Respiratory rate 16 /min ELIEZER PRO MD [facility] 08-07-2022 10:27-0400 Systolic Blood Pressure Non-Invasive 192 1 ELIEZER PRO MD [facility] 06-13-2021 13:20-0400 Diastolic blood pressure 61 mm[Hg] Dr. Ghassan Munoz Work Phone: [facility] [facility] Work Phone: 06-13-2021 13:20-0400 Heart rate 61 /min Dr. Ghassan Munoz Work Phone: [facility] Work Phone: 06-13-2021 13:20-0400 Respiratory rate 16 /min Dr. Ghassan Munoz Work Phone: [facility] Work Phone: 06-13-2021 13:20-0400 SaO2% (BldA) [Mass fraction] 100 % Dr. Ghassan Munoz Work Phone: [facility] Work Phone: 06-13-2021 13:20-0400 Systolic blood pressure 112 mm[Hg] Dr. Ghassan Munoz Work Phone: [facility] Work Phone: 06-13-2021 08:25-0400 Body temperature 97 [degF] Dr. Ghassan Munoz Work Phone: [facility] Work Phone: 06-13-2021 06:00-0400 Body weight 88.[address] Ghassan Munoz Work Phone: [facility] Work Phone: 06-12-2021 10:03-0400 Body height 172.[address] Ghassan Munoz Work Phone: [facility] Work Phone: 06-12-2021 00:34-0400 Body mass index (BMI) [Ratio] 29.9 kg/m2 Dr. Ghassan Munoz Work Phone: [facility] Work Phone: 06-11-2021 23:29-0400 Body temperature 98 [degF] Dr. Ghassan Munoz Work Phone: [facility] Work Phone: 06-11-2021 23:29-0400 Diastolic blood pressure 59 mm[Hg] Dr. Ghassan Munoz Work Phone: [facility] Work Phone: 06-11-2021 23:29-0400 Heart rate 61 /min Dr. Ghassan Munoz Work Phone: [facility] Work Phone: 06-11-2021 23:29-0400 Respiratory rate 13 /min Dr. Ghassan Munoz Work Phone: [facility] Work Phone: 06-11-2021 23:29-0400 SaO2% (BldA) [Mass fraction] 95 % Dr. Ghassan Munoz Work Phone: [facility] Work Phone: 06-11-2021 23:29-0400 Systolic blood pressure 118 mm[Hg] Dr. Ghassan Munoz Work Phone: [facility] Work Phone: 06-11-2021 20:32-0400 Body height 172.[address] Ghassan Munoz Work Phone: [facility] Work Phone: 06-11-2021 20:32-0400 Body mass index (BMI) [Ratio] 32.6 kg/m2 Dr. Ghassan Munoz Work Phone: [facility] Work Phone: 06-11-2021 20:32-0400 Body weight 97.[address] Ghassan Munoz Work Phone: [facility] Work Phone: 06-01-2021 18:44-0400 Diastolic blood pressure 56 mm[Hg] Dr. Ghassan Munoz Work Phone: [facility] Work Phone: 06-01-2021 18:44-0400 Heart rate 76 /min Dr. Ghassan Munoz Work Phone: [facility] Work Phone: 06-01-2021 18:44-0400 Respiratory rate 20 /min Dr. Ghassan Munoz Work Phone: [facility] Work Phone: 06-01-2021 18:44-0400 SaO2% (BldA) [Mass fraction] 96 % Dr. Ghassan Munoz Work Phone: [facility] Work Phone: 06-01-2021 18:44-0400 Systolic blood pressure 124 mm[Hg] Dr. Ghassan Munoz Work Phone: [facility] Work Phone: 06-01-2021 13:12-0400 Body height 172.[address] Ghassan Munoz Work Phone: [facility] Work Phone: 06-01-2021 13:12-0400 Body mass index (BMI) [Ratio] 32.6 kg/m2 Dr. Ghassan Munoz Work Phone: [facility] Work Phone: 06-01-2021 13:12-0400 Body temperature 97.5 [degF] Dr. Ghassan Munoz Work Phone: [facility] Work Phone: 06-01-2021 13:12-0400 Body weight 97.[address] Ghassan Munoz Work Phone: [facility] Work Phone: 05-27-2021 15:25-0400 Diastolic blood pressure 62 mm[Hg] Dr. Ghassan Munoz Work Phone: [facility] Work Phone: 05-27-2021 15:25-0400 Heart rate 50 /min Dr. Ghassan Munoz Work Phone: [facility] Work Phone: 05-27-2021 15:25-0400 Respiratory rate 18 /min Dr. Ghassan Munoz Work Phone: [facility] Work Phone: 05-27-2021 15:25-0400 SaO2% (BldA) [Mass fraction] 95 % Dr. Ghassan Munoz Work Phone: [facility] Work Phone: 05-27-2021 15:25-0400 Systolic blood pressure 137 mm[Hg] Dr. Ghassan Munoz Work Phone: [facility] Work Phone: 05-27-2021 14:10-0400 Body height 175.[address] Ghassan Munoz Work Phone: [facility] Work Phone: 05-27-2021 14:10-0400 Body mass index (BMI) [Ratio] 30.8 kg/m2 Dr. Ghassan Munoz Work Phone: [facility] Work Phone: 05-27-2021 14:10-0400 Body temperature 96.6 [degF] Dr. Ghassan Munoz Work Phone: [facility] Work Phone: 05-27-2021 14:10-0400 Body weight 94.[address] Ghassan Munoz Work Phone: [facility] Work Phone: 05-22-2021 14:06-0400 Body temperature 98.8 [degF] Dr. Ghassan Munoz Work Phone: [facility] Work Phone: 05-22-2021 14:06-0400 Diastolic blood pressure 77 mm[Hg] Dr. Ghassan Munoz Work Phone: [facility] Work Phone: 05-22-2021 14:06-0400 Heart rate 50 /min Dr. Ghassan Munoz Work Phone: [facility] Work Phone: 05-22-2021 14:06-0400 Respiratory rate 16 /min Dr. Ghassan Munoz Work Phone: [facility] Work Phone: 05-22-2021 14:06-0400 SaO2% (BldA) [Mass fraction] 93 % Dr. Ghassan Munoz Work Phone: [facility] Work Phone: 05-22-2021 14:06-0400 Systolic blood pressure 150 mm[Hg] Dr. Ghassan Munoz Work Phone: [facility] Work Phone: 05-08-2021 15:07-0400 Body mass index (BMI) [Ratio] 31.7 kg/m2 Dr. Ghassan Munoz Work Phone: [facility] Work Phone: 05-08-2021 15:07-0400 Body temperature 98.3 [degF] Dr. Ghassan Munoz Work Phone: [facility] Work Phone: 05-08-2021 15:07-0400 Body weight 97.[address] Ghassan Munoz Work Phone: [facility] Work Phone: 05-08-2021 15:07-0400 Diastolic blood pressure 54 mm[Hg] Dr. Ghassan Munoz Work Phone: [facility] Work Phone: 05-08-2021 15:07-0400 Heart rate 52 /min Dr. Ghassan Munoz Work Phone: [facility] Work Phone: 05-08-2021 15:07-0400 Respiratory rate 16 /min Dr. Ghassan Munoz Work Phone: [facility] Work Phone: 05-08-2021 15:07-0400 SaO2% (BldA) [Mass fraction] 97 % Dr. Ghassan Munoz Work Phone: [facility] Work Phone: 05-08-2021 15:07-0400 Systolic blood pressure 109 mm[Hg] Dr. Ghassan Munoz Work Phone: [facility] Work Phone: 02-05-2021 12:20-0500 Body mass index (BMI) [Ratio] 32.2 kg/m2 Dr. Ghassan Munoz Work Phone: [facility] Work Phone: 02-05-2021 12:20-0500 Body temperature 98.7 [degF] Dr. Ghassan Munoz Work Phone: [facility] Work Phone: 02-05-2021 12:20-0500 Body weight 97.[address] Ghassan Munoz Work Phone: [facility] Work Phone: 02-05-2021 12:20-0500 Diastolic blood pressure 69 mm[Hg] Dr. Ghassan Munoz Work Phone: [facility] Work Phone: 02-05-2021 12:20-0500 Heart rate 55 /min Dr. Ghassan Munoz Work Phone: [facility] Work Phone: 02-05-2021 12:20-0500 Respiratory rate 16 /min Dr. Ghassan Munoz Work Phone: [facility] Work Phone: 02-05-2021 12:20-0500 Systolic blood pressure 119 mm[Hg] Dr. Ghassan Munoz Work Phone: [facility] Work Phone: Encounters Encounter Date Encounter Type Care Provider Facility Start: 08-31-2024 Evaluation and management of inpatient Dr. Scout Lebron MD -Pro[facility] Work Phone: Start: 08-31-2024 Non-patient / Non-visit Dr. Scout Lebron MD -[place] Work Phone: Start: 08-30-2024 Patient encounter procedure Maira Luisa ESPAÑA -Sleep Lab Work Phone: Start: 08-30-2024 ambulatory [facility] Facility:[facility] Start: 08-30-2024 [facility] Work Phone: Start: 08-25-2024 ambulatory [facility] Facility:[facility] Start: 08-16-2024 End: 08-16-2024 ambulatory [facility] -Pulmonary Rehab Start: 08-16-2024 End: 08-16-2024 Discharged Recurring [facility] -Pulmonary Rehab Work Phone: Start: 08-05-2024 End: 08-05-2024 Patient encounter procedure Maria Luisa ESPAÑA -[place] [facility] Work Phone: Start: 08-05-2024 End: 08-05-2024 ambulatory [facility] Work Phone: Start: 08-04-2024 Registered Rec[facility] ulmonary Rehab Work Phone: Start: 07-16-2024 End: 07-17-2024 ambulatory [facility] Work Phone: Start: 07-16-2024 End: 07-17-2024 Discharged [facility]ring [facility] -Pulmonary Rehab Work Phone: Start: 07-15-2024 Encounter for genera l adult medical examination without abnormal findings [facility] Start: 07-14-2024 Registered [facility] ulmonary [facility] Work Phone: Start: 07-08-2024 End: 07-08-2024 ambulatory [facility] Work Phone: Start: 07-08-2024 End: 07-08-2024 Patient encounter procedure [facility] -Pulmonary Rehab Work Phone: Start: 07-08-2024 End: 07-08-2024 ambulatory [facility] Facility:[facility] Start: 04-23-2024 End: 04-23-2024 [facility]: 02-10-2024 End: 02-10-2024 Emergency department patient visit FELIZ JOHNSONRHONA [facility] Start: 01-08-2024 End: 01-09-2024 ambulatory RITU OLIVA [facility] Start: 11-27-2023 End: 11-27-2023 Emergency department patient visit JUDITH WEAVER [facility] Start: 07-17-2023 End: 07-17-2023 [facility] Start: 08-07-2022 End: 08-07-2022 Emergency department [facility] visit [facility] Facility:A Start: 08-07-2022 End: 08-07-2022 Emergency department patient visit ELIEZER PRO MD [facility] Start: 03-02-2022 End: 03-04-2022 ambulatory NANCY PINEDA Facility:A Start: 01-08-2022 Emergency department patient visit DR JUDITH WEAVER [facility] Start: 06-13-2021 Non-patient / Non-visit Dr. Ghassan Munoz Work Phone: [facility] Start: 06-12-2021 Non-patient / Non-visit Dr. Ghassan Munoz Work Phone: [facility] Start: 06-11-2021 End: 06-13-2021 Evaluation and management of inpatient Dr. Ghassan Munoz Work Phone: [facility]-Intensive Care Unit Start: 06-01-2021 End: 06-01-2021 Emergency department patient visit Dr. Ghassan Munoz Work Phone: [facility]-Emergency Department Start: 05-27-2021 End: 05-27-2021 Emergency department patient visit Dr. Ghassan Munoz Work Phone: [facility]-Emergency Department Start: 05-22-2021 End: 05-22-[address] Ghassan Munoz Work Phone: [facility]-Laboratory, Specimen Start: 05-22-2021 End: 05-22-[address] Ghassan Munoz Work Phone: [facility] Start: 05-08-2021 End: 05-08-[address] Ghassan Munoz Work Phone: [facility] Start: 02-05-2021 End: 02-05-[address] Ghassan Munoz Work Phone: [facility] Procedures Date Procedure Procedure Detail Performing Clinician Start: 08-31-2024 Plain chest X-ray [facility] Start: 08-31-2024 Estimated creatinine clearance [facility] Start: 06-11-2021 Plain chest X-ray Dr. Jamila [...] Author Start: 09-01-2024 Walking distance 6 minutes [facility] Start: 08-31-2024 Measurement of respiratory function [facility] Start: 08-31-2024 Verification routine [facility] Start: 08-31-2024 Admission procedure [facility] Start: 08-31-2024 Hospital admission, emergency, from emergency room, medical nature [facility] Start: 08-31-2024 Continuous pulse oximetry [facility] Start: 08-31-2024 Dual pressure sponta neous ventilation support [facility] Start: 06-01-2021 Microscopic observat ion [Identifier] in Unspecified specimen by Gram stain Gram Stain [facility] Work Phone: Start: 06-01-2021 Respiratory Culture Respiratory Cult ure [facility] Work Phone: Measurement of respiratory function [facility] Patient Education [facility] Work Phone: Patient referral [facility] Work Phone: Walking distance 6 minutes [facility] Immunizations Immunization Date Immunization Notes Care Provider Piter oshea 12-25-[address] Ghassan Munoz Work Phone: [facility] Payers Date Payer Category Payer [employer] ( and others) [id number] 2024 Self-pay [id number] 2022 [employer] ( and others) [id number] 2006 Medicare [id number] 1945 Unknown [id number] .[id number] 1945 Unknown [id number] .627 1945 Unknown [id number] [id number] .651 1945 Unknown [id number] [id number] .651 1945 Unknown [id number] [id number] .651 1945 Unknown [id number] [id number] .651 1945 Unknown [id number] [id number] .651 Unknown [facility] ED SEE NOTE [id number] Unknown [id number] Unknown [id number] .462 Unknown [id number] [id number] .462 Unknown [id number] [id number] .462 Unknown [id number] [id number] .462 Unknown [id number] [id number] .462 Unknown [id number] .462 Social History Date Type Detail Facility Start: 05-27-2021 End: 06-12-2021 Tobacco smoking status NHIS Unknown if ever smoked [facility] Work Phone: Start: 03-16-2019 None [facility] Start: 03-16-2019 Spouse/ Signif icant Other [facility] Start: 03-16-2019 Cigarettes [facility] Start: 1945 Sex Assigned At Male W [facility] Tobacco smoking status [facility] Start: 07-08-2024 End: 08-31-2024 Tobacco smoking status NHIS Ex-smoker (finding) [facility] Functional Status Date Assessment Result Facility 08-07-2022 Functional Status Assistive Device None [facility] 06-13-2021 Functional status Chair [facility] Work Phone: Mental Status Date Assessment Result Facility 08-31-2024 Cognitive function Voice/Name [facility] Work Phone: 06-13-2021 Cognitive function Voice/Name [facility] Work Phone: Clinical Notes 01-07-2022 to 08-31-2024 Note Date & Type Note Facility 08-31-2024 History and physi miles note [facility] 08-31-2024 Radiology Diagnostic study note [facility] Imaging Services [address], [place] [address] Chest 1 View (Portable) MR#: [id number] Acct: [id number] Name: BRYN AYON Rep #: [id number] : 1945 M 78 From: Mattie Davenport MD PCP: [facility] Status: REG ER Study:Chest 1 View (Portable) Date of Exam: 08/31/24 Exam# [id number] Ordering Dr: Shira Berger DO PROCEDURE: CHEST 1 VIEW (PORTABLE) 08/31/2024 REASON FOR EXAM: DYSPNEA TECHNIQUE: Frontal view of the chest. COMPARISON: 06/11/2021 FINDINGS: Normal heart size. Status post AVR. Unremarkable cardiac device. Mild interstitial prominence has developed, possibly edema. No consolidation, effusion or pneumo thorax. RAD/Chest 1 View (Portable) IMPRESSION: Possible mild interstitial edema. Consider follow up imaging. 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 August 05, 025 8:09am [facility] Work Phone: 1(862) 401-764106-19-2025 Evaluation note* Diagnosis Onset Date Resolution Status [...] GOLD classification chronic August 31, 2024 2:59am [facility] Work Phone: 1(878) 415-593505-26-2025 History and physical note Author Gerardo Lawrence [facility] Note Date/Time July 12, 2024 6:44p m [facility] Pulmonary Rehab Reports [address] [place] [address] [place] - History & Physical MR#: [id number] Acct: [id number] Name: BRYN AYON Rep #:[id number] : 1945 78 From: Gerardo Perkins BS, RVT PCP: [facility] History of Present Illness General Arrival date:: 07/08/24 Arrival time:: 13:30 Date of Referral:: 06/29/24 Date of Evaluation: 07/08/24 Referring Physician: [place] Primary Diagnosis: COPD History of Present Pulmonary [...] Do you have a Healthcare Power of Boom Tender?: Yes Living Will: Yes Advance Directives Information [...] 20 Promus Synergy stent,10/26/2018 per DJN @ [facility] Patient is also status post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 [facility] Referring Provider Active Start: Shira davila 2024 End: August 05, 2024 Maria Luisa Potts NP, MAIL ROOM CLERK-C Attending Provider Active Start: August 05, 2024 End: August 05, 2024 Team Status: Inactive Member Role/Relationship Status Dates [facility] Primary Care Provider Active Start: August 16, 2024 End: August 16, 2024 HONEY HERNANDEZ Attending Provider Active Start: August 16, 2024 End: August 16, 2024 HONEY HERNANDEZ Referring Provider Active Start: August 16, 2024 End: August 16, 2024 Team Status: Active Member Role/Relationship Status Dates [facility] Primary Care Provider Active Start: August 30, 2024 HONEY HERNANDEZ Attending Provider Active Start: August 30, 2024 HONEY HERNANDEZ Referring Provider Active Start: August 30, 2024 Team Status: Active Member Role/Relationship Status Dates [facility] Primary Care Provider Active Start: August 30, 2024 Maria Luisa Potts MAIL ROOM CLERK, MAIL ROOM CLERK-C Attending Provider Active Start: August 30, 2024 Maria Luisa Potts MAIL ROOM CLERK, MAIL ROOM CLERK-C Referring Provider Active Start: August 30, 2024 Team Status: Active Member Role/Relationship Status Dates [facility] Primary Care Provider Active Start: August 31, 2024 Dr. Michael Berger DO Emergency Provider Active Start: August 31, 2024 Dr. Scout Lebron MD Attending Provider Active Start: August 31, 2024 Team Status: Active Member Role/Relationship Status Dates [facility] Primary Care Provider Active Start: August 31, [...] BE BASED ON THE PRIMARY CLINICAL RECORDS. [facility] [employer] provides no warranty or guarantee of the accuracy or completeness of information in this document.
[2024-09-02 07:21] VITALS: BMI 28.2
== END | disposition home or self-care (01) ==
LOC: PSN 08:01
PROVIDERS: Referring Provider Nurse Practitioner Acute Care; Visit Provider Nurse Practitioner Acute Care
DX: J44.9 Chronic obstructive pulmonary disease, unspecified (principal)
CPT/HCPCS: 94060; 94726; 94729

== ENCOUNTER 2024-10-01 10:00 | Outpatient (RCR) | payer OTHER, SELFPAY ==
[2024-09-02 07:21] VITALS: BMI 28.2
--- NOTE | 2024-10-01 08:23 | PR.ITP_ITS ---
Exercise - Initial Assessment Visit Session Number:: 29 Physician Prescribed Exercise Modalities: Treadmill and Schwinn Airdyne AD-7 Current METSs:: 3.5 Target HR:: 112 (84-112) Current RPD:: 3 Maximum Exercise HR:: 73 Resting Blood Pressure: 90/40 Maximum Exercise Blood Pressure: 148/60 Minimum SpO2 with exercise: 93 EKG Type: SB to NSR with rare ectopy. Nutrition/Wt Mgmt - Initial Visit Session Number:: 29 Weight Management Admit Height:: 5 ft 8 in Admit Weight:: 180 lb 8 oz Admit BMI:: 27.4 Nutrition/Wt Mgmt - 30-Day Visit Date of Eval: 10/01/24 Session Number:: 29 Weight Management Height: 5 ft 8 in Weight:: 180 lb 8 oz BMI: 27.4 Nutrition/Wt Mgmt - 60-Day Visit Session Number:: 29 Weight Management Height: 5 ft 8 in Weight:: 180 lb 8 oz BMI: 27.4 Weight Goals Progress:: Goal met (Pt is at a healthy weight and attended nutrition class.) Nutrition/Wt Mgmt - 90-Day Visit Date of Eval: 10/01/24 Session Number:: 29 Weight Management Height: 5 ft 8 in Weight:: 180 lb 8 oz BMI: 27.4 Weight Goals Progress:: Goal met (Pt is at a healthy weight and attended nutrition class.) Nutrition/Wt Mgmt - Final Visit Session Number:: 29 Weight Management Height: 5 ft 8 in Weight:: 180 lb 8 oz BMI: 27.4 Psychosocial - Initial Assess Visit Session Number:: 29 Problems/Goals History of Emotional Disorders: None Psychosocial Goals: 1. Patient is free from overwhelming symtoms of depression (or anxiety, 2. Identifies personal stressors & states the strategies for managing, 3. Identifies activities to decrease isolation and/or symptoms of, 4. Improved psychosocial coping skills., 5. Verbalizes coping strategies., 6. Adequate treatment of depression. and 7. Improved Q.O.L. Psychosocial Test Tool Used:: PHQ-9 Questionnaire PHQ-9 Score: 10 Referral to Behavioral Health PS - Interventions: Yes: Attend Stress Management Classes Intervention/Plan: See List Interventions/Plan:: Assess stressors,coping strategies & signs of derpression on admission, Instruct/assist pt to develop coping & personal stress Mgt strategies, Refer to Behavioral Health if appropriate, Refer to Physician if appropriate, Instruct patient to recognize signs & symptoms of depression, Instruct patient to recog and Other additional plan/intervention Comments:: Pt denies any psychosocial issues at this time. Psychosocial - 30-Day Visit Date of Eval: 10/01/24 Session Number:: 29 Problems/Goals History of Emotional Disorders: None Psychosocial Goals: 1. Patient is free from overwhelming symtoms of depression (or anxiety, 2. Identifies personal stressors & states the strategies for managing, 3. Identifies activities to decrease isolation and/or symptoms of, 4. Improved psychosocial coping skills., 5. Verbalizes coping strategies., 6. Adequate treatment of depression. and 7. Improved Q.O.L. Psychosocial Test Tool Used:: PHQ-9 Questionnaire PHQ-9 Score: 10 Referral to Behavioral Health PS - Interventions: Yes: Attend Stress Management Classes Plan Interventions/Plan:: Assess stressors,coping strategies & signs of derpression on admission, Instruct/assist pt to develop coping & personal stress Mgt strategies, Refer to Behavioral Health if appropriate, Refer to Physician if appropriate, Instruct patient to recognize signs & symptoms of depression, Ins truct patient to recog and Other additional plan/intervention Comments:: Pt denies any psychosocial issues at this time. Psychosocial - 60-Day Visit Session Number:: 29 Problems/Goals History of Emotional Disorders: None Psychosocial Goals: 1. Patient is free from overwhelming symtoms of depression (or anxiety, 2. Identifies personal stressors & states the strategies for managing, 3. Identifies activities to decrease isolation and/or symptoms of, 4. Improved psychosocial coping skills., 5. Verbalizes coping strategies., 6. Adequate treatment of depression. and 7. Improved Q.O.L. Psychosocial Test Tool Used:: PHQ-9 Questionnaire PHQ-9 Score: 10 Referral to Behavioral Health PS - Interventions: Yes: Attend Stress Management Classes Plan Interventions/Plan:: Assess stressors,coping strategies & signs of derpression on admission, Instruct/assist pt to develop coping & personal stress Mgt strategies, Refer to Behavioral Health if appropriate, Refer to Physician if appropriate, Instruct patient to recognize signs & symptoms of depression, Instruct patient to recog and Other additional plan/intervention Comments:: Pt denies any psychosocial issues at this time. Psychosocial - 90-Day Visit Date of Eval: 10/01/24 Session Number:: 29 Problems/Goals History of Emotional Disorders: None Psychosocial Goals: 1. Patient is free from overwhelming symtoms of depression (or anxiety, 2. Identifies personal stressors & states the strategies for managing, 3. Identifies activities to decrease isolation and/or symptoms of, 4. Improved psychosocial coping skills., 5. Verbalizes coping strategies., 6. Adequate treatment of depression. and 7. Improved Q.O.L. Psychosocial Test Tool Used:: PHQ-9 Questionnaire PHQ-9 Score: 10 Referral to Behavioral Health PS - Interventions: Yes: Attend Stress Management Classes Plan Interventions/Plan:: Assess stressors,coping strategies & signs of derpression on admission, Instruct/assist pt to develop coping & personal stress Mgt strategies, Refer to Behavioral Health if appropriate, Refer to Physician if appropriate, Instruct patient to recognize signs & symptoms of depression, Instruct patient to recog and Other additional plan/intervention Comments:: Pt denies any psychosocial issues at this time. Psychosocial - Final Assess Visit Session Number:: 29 Problems/Goals History of Emotional Disorders: None Psychosocial Goals: 1. Patient is free from overwhelming symtoms of depression (or anxiety, 2. Identifies personal stressors & states the strategies for managing, 3. Identifies activities to decrease isolation and/or symptoms of, 4. Improved psychosocial coping skills., 5. Verbalizes coping strategies., 6. Adequate treatment of depression. and 7. Improved Q.O.L. Psychosocial Test Tool Used:: PHQ-9 Questionnaire PHQ-9 Score: 10 Referral to Behavioral Health PS - Interventions: Yes: Attend Stress Management Classes Plan Interventions/Plan:: Assess stressors,coping strategies & signs of derpression on admission, Instruct/assist pt to develop coping & personal stress Mgt strategies, Refer to Behavioral Health if appropriate, Refer to Physician if appropriate, Instruct patient to recognize signs & symptoms of depression, Instruct patient to recog and Other additional plan/intervention Comments:: Pt denies any psychosocial issues at this time. Oxygen & Oxygen Titration Init Visit Session Number:: 29 Initial Assessment SpO2:: 93 Oxygen & Oxygen Titration 30D Visit Date of Eval: 10/01/24 Session Number:: 29 Reassessment SpO2:: 93 Oxygen & Oxygen Titration 60D Visit Date of Eval: 10/01/24 Session Number:: 29 Reassessment SpO2:: 93 Oxygen & Oxygen Titration 90D Visit Date of Eval: 10/01/24 Session Number:: 29 Reassessment Oxygen & Oxygen Titration 90 days: None SpO2:: 93 Oxygen & Oxygen Titration BA Visit Date of Eval: 10/01/24 Session Number:: 29 Reassessment SpO2:: 93 Core Components - Initial Visit Session Number:: 29 Hypertension Hypertension Diagnosis:: Hypertension ICD-10 I10 BP: 90/40 [employer] Hypertension Guidelines Blood Pressure: 148/60 Outcomes/Goals: Able to verbalize/achieve optimal blood pressure <130/80 and Incorporates diet changes & exercise for blood pressure control by DC Tobacco - Initial Assessment Tobacco Program Goals Tobacco Use: Non-smoker Gave Education Materials For:: Tobacco Triggers, Pulmonary Disease, Risk Factors, Breathing Techniques, Medical Compliance, Pulmonary A&P, Exacerbation Signs & Symptoms and Stress & Relaxation Core Components - 30 DAYS Visit Date of Eval: 10/01/24 Session Number:: 29 Hypertension Hypertension Diagnosis:: Hypertension ICD-10 I10 Resting Blood Pressure:: 90/40 [employer] Hypertension Guidelines Peak Exercise Blood Pressure:: 148/60 Outcomes/Goals: Able to verbalize/achieve optimal blood pressure <130/80 and Incorporates diet changes & exercise for blood pressure control by DC Interventions/plan: Instruct on optimal blood pressure, hypertension & medications and Instruct on effects of sodium, alcohol, stress, exercise &hypertension 30 day Reassessments:: Met Reassessment Notes & Comments:: Pt's BP's are within AHA normal limits Tobacco - 30-Day Tobacco Program Goals Learning Barriers: Participates in education Tobacco Use: Non-smoker Gave Education Materials For:: Tobacco Triggers, Pulmonary Disease, Risk Factors, Breathing Techniques, Medical Compliance, Pulmonary A&P, Exacerbation Signs & Symptoms and Stress & Relaxation Medication Medication reassessment: Yes: Pt demonstrates correct technique timing for MDI, Yes: Pt demonstrates correct technique timing for DPI, Yes: Pt demonstrates correct technique timing for NEB and Yes: Pt demonstrates correct technique timing for spacer Core Components - 60 DAYS Visit Session Number:: 29 Hypertension Hypertension Diagnosis:: Hypertension ICD-10 I10 Resting Blood Pressure:: 90/40 [employer] Hypertension Guidelines Peak Exercise Blood Pressure:: 148/60 Outcomes/Goals: Able to verbalize/achieve optimal blood pressure <130/80 and Incorporates diet changes & exercise for blood pressure control by DC Interventions/plan: Instruct on optimal blood pressure, hypertension & med ications and Instruct on effects of sodium, alcohol, stress, exercise &hypertension 60 day Reassessments:: Met Reassessment Notes & Comments:: Pt's BP's are within AHA normal limits Tobacco - 60-Day Tobacco Program Goals Learning Barriers: Participates in education Tobacco Use: Non-smoker Gave Education Materials For:: Tobacco Triggers, Pulmonary Disease, Risk Factors, Breathing Techniques, Medical Compliance, Pulmonary A&P, Exacerbation Signs & Symptoms and Stress & Relaxation Medication Medication reassessment: Yes: Pt demonstrates correct technique timing for MDI, Yes: Pt demonstrates correct technique timing for DPI, Yes: Pt demonstrates correct technique timing for NEB and Yes: Pt demonstrates correct technique timing for spacer Core Components - 90 DAYS Visit Date of Eval: 10/01/24 Session Number:: 29 Hypertension Hypertension Diagnosis:: Hypertension ICD-10 I10 Resting Blood Pressure:: 90/40 [employer] Hypertension Guidelines Peak Exercise Blood Pressure:: 148/60 Outcomes/Goals: Able to verbalize/achieve optimal blood pressure <130/80 and Incorporates diet changes & exercise for blood pressure control by DC Interventions/plan: Instruct on optimal blood pressure, hypertension & medications and Instruct on effects of sodium, alcohol, stress, exercise &hypertension 90 day Reassessments:: Met Reassessment Notes & Comments:: Pt's BP's are within AHA normal limits Tobacco - 90-Day Tobacco Program Goals Learning Barriers: Participates in education Tobacco Use: Non-smoker Gave Education Materials For:: Tobacco Triggers, Pulmonary Disease, Risk Factors, Breathing Techniques, Medical Compliance, Pulmonary A&P, Exacerbation Signs & Symptoms and Stress & Relaxation Exacerbation Mgmt & Airway Clearance Reassessment: Demonstrates knowledge of O2 Rx at rest Medication Medication list reviewed:: Yes Taking medications 100% of the time:: Met Medication reassessment: Yes: Pt demonstrates correct technique timing for MDI, Yes: Pt demonstrates correct technique timing for DPI, Yes: Pt demonstrates correct technique timing for NEB and Yes: Pt demonstrates correct technique timing for spacer Core Components - Final Visit Session Number:: 29 Hypertension Hypertension Diagnosis:: Hypertension ICD-10 I10 Resting Blood Pressure:: 90/40 [employer] Hypertension Guidelines Peak Exercise Blood Pressure:: 148/60 Outcomes/Goals: Able to verbalize/achieve optimal blood pressure <130/80 and Incorporates diet changes & exercise for blood pressure control by DC Tobacco - Final Tobacco Program Goals Learning Barriers: Participates in education Tobacco Use: Non-smoker Medication Medication reassessment: Yes: Pt demonstrates correct technique timing for MDI, Yes: Pt demonstrates correct technique timing for DPI, Yes: Pt demonstrates correct technique timing for NEB and Yes: Pt demonstrates correct technique timing for spacer Knowledge Questionaire (BCKQ) Information Information: [facility] COPD Knowledge Questionnaire (BCKQ) This questionnaire is designed to find out what you know about your lung problem. It should be completed without help form anyone else. This usually takes between 10 and 20 minutes. Your answers will help us to find out what information you need to help you to understand and manage your lung condition. [facility] [place] which you think is the correct answer. Nutrition Survey Nutrition Survey Instructions Scoring Instructions
[2024-10-01 08:35] VITALS: BP 148/60; BP 90/40; O2SAT 93; BMI 27.4
== END 2024-10-17 23:59 ==
LOC: PR 10:00
DX: J44.9 Chronic obstructive pulmonary disease, unspecified (principal)
CPT/HCPCS: 97150; 94626

== ENCOUNTER → 2024-10-06 | Outpatient (CLI) | payer OTHER, SELFPAY ==
[2024-09-02 07:21] VITALS: BMI 28.2
[2024-10-01 08:35] VITALS: BMI 27.4
== END | disposition home or self-care (01) ==
LOC: SL 19:52
PROVIDERS: Referring Provider Nurse Practitioner Acute Care; Visit Provider Nurse Practitioner Acute Care
DX: G47.33 Obstructive sleep apnea (adult) (pediatric) (principal)
CPT/HCPCS: 95811

== ENCOUNTER 2024-10-20 07:42 | Outpatient (RCR) | payer OTHER, SELFPAY ==
[2024-10-01 08:35] VITALS: BMI 27.4
== END 2024-11-16 23:59 ==
LOC: PR 07:42
DX: J44.9 Chronic obstructive pulmonary disease, unspecified (principal)
CPT/HCPCS: 97150; 94626